=== PATIENT | female | born 1995 | race Caucasian/White ===

== ENCOUNTER 2016-09-26 11:12 | Outpatient (CLI) | payer OTHER, MEDICAID ==
[~2016-09-26] VITALS: Ht 170.2 cm; Wt 121.6 kg
[~2016-09-26 11:12] MED LIST: ACHD5005 PO; AGM875T GT; ALBU8.5H2 IH; ARIP10TA2 PO; BIRTH CONTROL PO; CEPH-507 PO; CEPH500C PO; CITA10TA70 PO; CRAN1CAP5 PO; DCS100C PO; HYDR-1231 PO; Ibuprofen PO; LEVO500T2 PO; LEVO500T69 PO; NITR-65 PO; OMEP20CA12 PO; ONDA4TAB8 PO; OXYC1TAB87 PO; PHEN100T26 PO; PRD10T PO; PREN-93 PO; PREN1TAB86 PO; SMT80CT PO; TRAM-42 PO; TRAM50TA2 PO
[2016-09-26] MEDS ORDERED: FERR-84 PO (11:33)
[2016-09-26 11:46] VITALS: BP 120/69
[2016-09-26] MEDS ORDERED: LACTATED RINGERS 1,000 ML IV ONE (12:45)
--- NOTE | 2016-09-26 13:46 | Diagnostic Imaging Report ---
PROCEDURE: US Gallbladder. TECHNIQUE: Multiple real-time grayscale images were obtained over the right upper quadrant in various projections. INDICATION: Right upper quadrant pain. FINDINGS: The pancreas is largely obscured by bowel gas. Hepatopetal flow in the portal vein is seen. The liver demonstrates no focal mass. The gallbladder demonstrates no stone or wall thickening. No pericholecystic fluid. No fluid collection in the upper right abdomen is seen. The right kidney is 9.5 cm in length with no hydronephrosis or focal lesion. The sonographic Bray sign is reportedly negative. IMPRESSION: No definite abnormality. Dictated by: Dictated on workstation # [id number]
[2016-09-26 13:58] VITALS: BP 117/56
[2016-09-26] MEDS ORDERED: LACTATED RINGERS 1,000 ML IV SCH (14:00)
[2016-09-26] MEDS ORDERED: ANTACID SUSP 30 ML UDC (MYLANTA) PO ONE (14:30)
[2016-09-26 16:48] LABS: BASOPHILS % (AUTO) 0 % (0-10); EOSINOPHILS % (AUTO) 0 % (0-10); LYMPHOCYTES # (AUTO) 2.9 X 10^3 (1.0-4.0); LYMPHOCYTES % (AUTO) 17 % (12-44); MEAN CORPUSCULAR HEMOGLOBIN 25 PG (25-34); MEAN CORPUSCULAR HGB CONC 31 G/DL (32-36); MEAN CORPUSCULAR VOLUME 79 FL (80-99); MEAN PLATELET VOLUME 9.5 FL (7.4-10.4); MONOCYTES # (AUTO) 0.8 X 10^3 (0.0-1.0); MONOCYTES % (AUTO) 5 % (0-12); NEUTROPHILS # (AUTO) 13.6 X 10^3 (1.8-7.8); NEUTROPHILS % (AUTO) 78 % (42-75); PLATELET COUNT 355 10^3/uL (130-400); RED BLOOD COUNT 3.76 10^6/uL (4.35-5.85); RED CELL DISTRIBUTION WIDTH 14.5 % (10.0-14.5); WHITE BLOOD COUNT 17.4 10^3/uL (4.3-11.0)
[2016-09-26 16:50] VITALS: BP 129/65
[2016-09-26 17:04] LABS: ALANINE AMINOTRANSFERASE 11 U/L (0-55); ALBUMIN 3.1 G/DL (3.2-4.5); ANION GAP 8 MMOL/L (5-14); ASPARTATE AMINO TRANSFERASE 10 U/L (5-34); BILIRUBIN,TOTAL 0.3 MG/DL (0.1-1.0); BLOOD UREA NITROGEN 7 MG/DL (7-18); BUN/CREATININE RATIO 10; CALCIUM 8.6 MG/DL (8.5-10.1); CARBON DIOXIDE 21 MMOL/L (21-32); CHLORIDE 108 MMOL/L (98-107); CREATININE SERUM 0.67 MG/DL (0.60-1.30); GFR ESTIMATED > 60; GLUCOSE 74 MG/DL (70-105); POTASSIUM 3.6 MMOL/L (3.6-5.0); SODIUM 137 MMOL/L (135-145); TOTAL PROTEIN 6.3 G/DL (6.4-8.2)
[2016-09-26 17:09] LABS: HYPOCHROMASIA MODERATE; LYMPHOCYTES % (MANUAL) 24 %; NEUTROPHILS % (MANUAL) 71 %; POLYCHROMASIA SLIGHT; STOMATOCYTES SLIGHT
[2016-09-26] MEDS ORDERED: morphine INJ 10 MG/ML 1ML (SYR OR VIAL) ONE (17:13)
[2016-09-26] MEDS ORDERED: morphine INJ 5 MG/ML 1 ML VIAL IVP ONE (17:15)
[2016-09-26] MEDS ORDERED: morphine INJ 10 MG/ML 1ML (SYR OR VIAL) IV ONE (18:04)
--- NOTE | 2016-09-27 10:52 | Physician Query-Final Dx ---
VAISHALI MAYES 09/27/16 1052: Clinic Account Progress/Dx Physician Query: Please give diagnosis Date of Service Sep 26, 2016 at 11:12 MILY RICHTER MD 09/30/16 0709: Clinic Account Progress/Dx DIAGNOSIS: Diagnosis 1. IUP at 37 weeks 2. Uterine irritability non-labor 3. R upper quadrant abdominal pain - non specific VAISHALI MAYES Sep 27, 2016 10:52 MILY RICHTER MD Sep 30, 2016 07:09
[2016-10-12] MEDS ORDERED: HYDR-3812 PO (07:43)
[2016-10-12] MEDS ORDERED: DOCU100C37 PO (07:43)
[2016-10-12] MEDS ORDERED: IBUP-1773 PO (07:43)
== END 2016-09-26 19:12 | disposition home or self-care (01) ==
LOC: LDRP 11:12 → WSo 11:12
PROVIDERS: ATTEND Family Medicine
DX: O99.89 Other specified diseases and conditions complicating pregnancy, childbirth and the puerperium (principal); N85.8 Other specified noninflammatory disorders of uterus; R10.11 Right upper quadrant pain; Z3A.37 37 weeks gestation of pregnancy
CPT/HCPCS: 36415; 76705; 80053; 85007; 85027; 96361; 96374; 99214

== ENCOUNTER 2016-10-06 09:56 | Outpatient (CLI) | payer MEDICAID ==
[~2016-10-06] VITALS: Ht 170.2 cm; Wt 120.7 kg
[~2016-10-06 09:56] MED LIST changes: +FERR-84 PO
[2016-10-06 10:03] VITALS: BP 111/62
[2016-10-12] MEDS ORDERED: DOCU100C37 PO (07:43)
[2016-10-12] MEDS ORDERED: HYDR-3812 PO (07:43)
[2016-10-12] MEDS ORDERED: IBUP-1773 PO (07:43)
== END 2016-10-06 10:17 | disposition home or self-care (01) ==
LOC: PREOP 09:56
PROVIDERS: ATTEND Obstetrics & Gynecology
DX: Z01.818 Encounter for other preprocedural examination (principal); Z11.2 Encounter for screening for other bacterial diseases; O34.211 Maternal care for low transverse scar from previous cesarean delivery
CPT/HCPCS: 87081

== ENCOUNTER 2016-10-10 06:03 | Inpatient (IN) | payer OTHER, MEDICAID ==
[~2016-10-10] VITALS: Ht 170.2 cm; Wt 120.7 kg
[~2016-10-10 06:03] MED LIST changes: +CITRIC ACID/SOB CIT (BICITRA) 30 ML UDC ONE; +FAMOTIDINE 20MG/2ML IV (PEPCID) ONE; +LACTATED RINGERS 1,000 ML IV ONE; +METOCLOPRAMIDE INJ 10 MG/2 ML (REGLAN) ONE; +NS (IVPB) 50 ML ONE; +ceFAZolin 1,000 MG (ANCEF) VIAL ONE
[2016-10-10] MEDS ORDERED: LACTATED RINGERS 1,000 ML IV PRN ×2 (06:40)
[2016-10-10 06:45] VITALS: BP 131/80
[2016-10-10] MEDS ORDERED: METOCLOPRAMIDE INJ 10 MG/2 ML (REGLAN) IV ONE (06:45)
[2016-10-10] MEDS ORDERED: CITRIC ACID/SOB CIT (BICITRA) 30 ML UDC PO ONE (06:45)
[2016-10-10] MEDS ORDERED: CATHETER FLUSH 10 ML SYR IV PRN (06:45)
[2016-10-10] MEDS ORDERED: FAMOTIDINE 20MG/2ML IV (PEPCID) IV ONE (06:45)
[2016-10-10 06:49] LABS: BASOPHILS % (AUTO) 0 % (0-10); EOSINOPHILS % (AUTO) 0 % (0-10); LYMPHOCYTES # (AUTO) 2.4 X 10^3 (1.0-4.0); LYMPHOCYTES % (AUTO) 14 % (12-44); MEAN CORPUSCULAR HEMOGLOBIN 25 PG (25-34); MEAN CORPUSCULAR HGB CONC 32 G/DL (32-36); MEAN CORPUSCULAR VOLUME 77 FL (80-99); MEAN PLATELET VOLUME 9.9 FL (7.4-10.4); MONOCYTES # (AUTO) 1.2 X 10^3 (0.0-1.0); MONOCYTES % (AUTO) 7 % (0-12); NEUTROPHILS # (AUTO) 13.3 X 10^3 (1.8-7.8); NEUTROPHILS % (AUTO) 78 % (42-75); PLATELET COUNT 390 10^3/uL (130-400); RED CELL DISTRIBUTION WIDTH 14.7 % (10.0-14.5); WHITE BLOOD COUNT 17.1 10^3/uL (4.3-11.0)
[2016-10-10 06:52] LABS: BILIRUBIN,URINE NEGATIVE (NEGATIVE); KETONES,URINE NEGATIVE (NEGATIVE); LEUKOCYTE ESTERASE ,URINE 1+ (NEGATIVE); NITRITE,URINE NEGATIVE (NEGATIVE); PH,URINE 6 (5-9); PROTEIN,URINE 1+ (NEGATIVE); UROBILINOGEN,URINE 1 MG/DL (NORMAL)
[2016-10-10] MEDS ORDERED: ceFAZolin INJECTION 1,000 MG in NS (IVPB) 50 ML IV NR (07:00)
[2016-10-10] MEDS ORDERED: metroNIDAZOLE 500MG/100ML IVPB 100 ML IV NR (07:00)
[2016-10-10 07:01] LABS: CALCIUM OXALATE CRYSTALS,UR FEW /LPF; SQUAMOUS EPITHELIAL CELL,UR 25-50 /HPF
[2016-10-10] MEDS ORDERED: OXYTOCIN/NORMAL SALINE 500 ML IV ONE ×2 (07:07→08:24)
[2016-10-10] MEDS ORDERED: morphine PF (DURAMORPH) 10 MG/10 ML AMP ONE (07:08)
[2016-10-10] MEDS ORDERED: fentaNYL INJECTION 100 MCG/2 ML AMP ONE (07:08)
--- NOTE | 2016-10-10 07:14 | Progress Note-Pre Operative ---
Pre-Operative Progress Note H&P Reviewed The H&P was reviewed, patient examined and no changes noted. Date H&P Reviewed: Oct 10, 2016 Time H&P Reviewed: 07:05 Pre-Operative Diagnosis: Previous section, 39 weeks TARUN WITT DO Oct 10, 2016 07:14
[2016-10-10 07:17] LABS: BASOPHILS % (MANUAL) 1 %; LYMPHOCYTES % (MANUAL) 21 %; NEUTROPHILS % (MANUAL) 74 %
[2016-10-10] MEDS ORDERED: KETOROLAC 30 MG/ML VIAL ONE (07:58)
[2016-10-10] MEDS ORDERED: morphine PF (DURAMORPH) 10 MG/10 ML AMP INJ ONE (08:30)
[2016-10-10] MEDS ORDERED: ONDANSETRON 4 MG/2 ML (SDV) Z0FRAN IV PRN (08:30)
[2016-10-10] MEDS ORDERED: fentaNYL INJECTION 100 MCG/2 ML AMP INJ ONE (08:30)
[2016-10-10] MEDS ORDERED: NALOXONE 0.4 MG/ML 1 ML (NARCAN) VIAL IV PRN (08:30)
--- NOTE | 2016-10-10 08:31 | Cesarean Section Operative ---
Procedure Procedure Note Pre-operative Diagnosis: Jailene Duke is a 21 /Para 2 /1 , Gestational Age 39 weeks with history of previous section Post-operative Diagnosis: same Procedure: Primary low transverse section Physician: TARUN WITT Network Manager: She David APRN Estimated blood loss: 600 mL Disposition: stable in recovery Findings: Viable female infant, Apgars 9/9, weight8#2oz, intact placenta, 3vc, normal appearing uterus, tubes, and ovaries. Indications:Jailene Duke is a 21 /Para 2 /1 ,Gestational Age 39 weeks with history of previous section Procedure Details: The patient was seen in pre-op and the procedure was discussed with the patient in full, including the risks, benefits, and alternatives. All questions were answered. The patient was taken to the operating room and a time out was performed, verifying patient and procedure. After spinal anesthesia was placed by our anesthesia colleagues, the patient was placed in the dorsal supine with leftward tilt for uterine displacement.~ Her abdomen was then prepped and draped in the typical sterile fashion. A Pfannenstiel skin incision was made using a scalpel and carried down through the underlying fascia. The fascia was incised in the midline and tented up using Tnoy clamps. On both the inferior and superior fascia side the rectus muscle was dissected off bluntly and sharply using Kam scissors. The peritoneum was identified and entered bluntly in the midline. This was then stretched laterally using manual strength. After entering the abdominal cavity and confirming lack of intraperitoneal adhesions, a large Maycol retractor was placed and the lower uterine segment was visualized. A scalpel was utilized to make a low transverse uterine incision. Amniotomy was performed with an Allis clamp with return of clear fluid. The infant's head was grasped and brought to the level of the incision. Fundal pressure was applied and infant was delivered without difficulty. Mouth and nares were suctioned with bulb suction. After the umbilical cord was clamped and cut, the infant was handed off to the pediatric staff. A sample of cord blood was then obtained. The placenta was delivered intact via uterine massage. The uterus cleared of all clots and debris. The uterine incision was closed using 0 Vicryl in a running locked fashion. A second imbricated layer was placed using 0 Vicryl in a running fashion as well. Again the hysterotomy site was examined and hemostasis was observed. The bilateral tubes and ovaries appeared normal. The abdominal gutters were cleared of all clots and debris. A final check of the uterine incision showed it to be hemostatic. The peritoneum was closed using 3-0 Vicryl in a running fashion. The fascia was closed with 0 Vicryl in a running fashion. The subcutaneous space was hemostatic, and irrigated. The subcutaneous space was closed with 3-0 Vicryl in several single interrupted stitches. The skin was then closed using 4- 0 Monocryl in a running subcuticular fashion. The skin edges were reapproximated together and were hemostatic. A pressure dressing was applied. All sponge, lap and needle counts were correct at the end of the procedure per nursing. Vitals - Labs Vital Signs - I&O Vital Signs Date Time Temp Pulse Resp B/P Pulse Ox O2 Delivery O2 Flow Rate FiO2 10/10/16 06:45 98.0 90 18 131/80 Room Air Labs Laboratory Tests 10/10/16 06:10: Urine Bacteria FEWH, Urine Bilirubin NEGATIVE, Urine Calcium Oxalate Crystals FEWH, Urine Casts NONE, Urine Clarity CLEAR, Urine Color YELLOW, Urine Crystals NONE, Urine Culture Indicated NO, Urine Glucose (UA) NEGATIVE, Urine Ketones NEGATIVE, Urine Leukocyte Esterase 1+H, Urine Mucus MODERATEH, Urine Nitrite NEGATIVE, Urine Protein 1+H, Urine RBC NONE, Urine RBC (Auto) NEGATIVE, Urine Specific [place] 1.020, Urine Squamous Epithelial Cells 25-50H, Urine Urobilinogen 1, Urine WBC 5-10H, Urine pH 6 10/10/16 06:16: Basophils # (Auto) 0.0, Basophils % (Manual) 1, Basophils (%) (Auto) 0, Blood Morphology Comment NORMAL, Eosinophils # (Auto) 0.0, Eosinophils (%) (Auto) 0, Hematocrit 32L, Hemoglobin 10.4L, Lymphocytes # (Auto) 2.4, Lymphocytes % ( Manual) 21, Lymphocytes (%) (Auto) 14, Mean Corpuscular Hemoglobin 25, Mean Corpuscular Hemoglobin Concent 32, Mean Corpuscular Volume 77L, Mean Platelet Volume 9.9, Monocytes # (Auto) 1.2H, Monocytes % (Manual) 4, Monocytes (%) (Auto ) 7, Neutrophils # (Auto) 13.3H, Neutrophils % (Manual) 74, Neutrophils (%) ( Auto) 78H, Platelet Count 390, Red Blood Count 4.20L, Red Cell Distribution Width 14.7H, White Blood Count 17.1H TARUN WITT DO Oct 10, 2016 08:31 TARUN WITT DO Oct 10, 2016 08:31
[2016-10-10] MEDS ORDERED: FERROUS SULF 325 MG (IRON) TAB PO SCH (09:00)
[2016-10-10 09:50] VITALS: BP 112/77
[2016-10-10 11:00] VITALS: BP 120/76
[2016-10-10] MEDS ORDERED: D5 LR IV SOLUTION 1,000 ML IV ONE (12:48)
[2016-10-10 13:00] VITALS: BP 123/75
[2016-10-10] MEDS ORDERED: OXYTOCIN/NORMAL SALINE 500 ML IV SCH (13:07)
[2016-10-10] MEDS ORDERED: D5 LR IV SOLUTION 1,000 ML IV SCH (13:07)
[2016-10-10] MEDS ORDERED: MEASLES,MUMPS,RUBELLA 1 EA INJ SC SCH (13:15)
[2016-10-10] MEDS ORDERED: HYDROmorphone (DILAUDID) 2 MG/ML VIAL IVP PRN (13:15)
[2016-10-10] MEDS ORDERED: TETANUS,DIPTH,PERTUSS P/F (BOOSTRIX) 0.5 ML VIAL IM SCH (13:15)
[2016-10-10] MEDS ORDERED: CATHETER FLUSH 10 ML SYR IV SCH (14:00)
[2016-10-10] MEDS: KETOROLAC 30 MG/ML VIAL IVP SCH ×2 (14:46→21:36)
[2016-10-10] MEDS: HYDROcodone/APAP 5 MG/325 MG (LORTAB) TAB PO PRN (14:53)
[2016-10-10 17:30] VITALS: BP 101/63
[2016-10-10 21:36] VITALS: BP 102/56
[2016-10-10] MEDS: DOCUSATE SODIUM 100 MG (COLACE) CAP PO SCH (21:36)
[2016-10-11 01:32] VITALS: BP 91/54
[2016-10-11] MEDS: KETOROLAC 30 MG/ML VIAL IVP SCH ×2 (03:36→07:15)
[2016-10-11 05:40] VITALS: BP 117/57
[2016-10-11 05:58] LABS: BASOPHILS % (AUTO) 0 % (0-10); EOSINOPHILS # (AUTO) 0.1 10^3/uL (0.0-0.3); EOSINOPHILS % (AUTO) 0 % (0-10); LYMPHOCYTES # (AUTO) 2.8 X 10^3 (1.0-4.0); LYMPHOCYTES % (AUTO) 17 % (12-44); MEAN CORPUSCULAR HEMOGLOBIN 25 PG (25-34); MEAN CORPUSCULAR HGB CONC 32 G/DL (32-36); MEAN CORPUSCULAR VOLUME 79 FL (80-99); MEAN PLATELET VOLUME 9.4 FL (7.4-10.4); MONOCYTES % (AUTO) 6 % (0-12); NEUTROPHILS # (AUTO) 12.4 X 10^3 (1.8-7.8); NEUTROPHILS % (AUTO) 76 % (42-75); PLATELET COUNT 373 10^3/uL (130-400); RED BLOOD COUNT 3.37 10^6/uL (4.35-5.85); RED CELL DISTRIBUTION WIDTH 14.5 % (10.0-14.5); WHITE BLOOD COUNT 16.3 10^3/uL (4.3-11.0)
--- NOTE | 2016-10-11 08:29 | Postpartum Progress Note ---
Post Op Post-operative Day #1 Subjective: Patient is without complaints. Ambulating, voiding after laird removed. Tolerating a regular diet without nausea or vomiting. Normal lochia. Pain is well controlled with oral pain medications. Passing flatus. Breast feeding. Objective: Vital Sign - Last 12Hours 10/10/16 210/11/16 21:36 01:32 05:40 Temp 98.1 96.7 98.4 Pulse 77 88 77 Resp 18 18 18 B/P 102/56 91/54 117/57 Pulse Ox 100 97 99 O2 Delivery Room Air Room Air Room Air Intake and Output 10/10/16 23:59 Intake Total 2500 ml Output Total 825 ml Balance 1675 ml Physical Exam: General - Alert and oriented, no apparent distress Abdomen - Soft, appropriately tender to palpation, non-distended, fundus firm at umbilicus Incision - clean, dry and intact; no erythema or induration, no drainage Extremities - no edema, negative Blair's bilaterally Laboratory Tests 10/11/16 05:31: Basophils # (Auto) 0.0, Basophils (%) (Auto) 0, Eosinophils # (Auto) 0.1, Eosinophils (%) (Auto) 0, Hematocrit 27L, Hemoglobin 8.4L, Lymphocytes # (Auto) 2.8, Lymphocytes (%) (Auto) 17, Mean Corpuscular Hemoglobin 25, Mean Corpuscular Hemoglobin Concent 32, Mean Corpuscular Volume 79L, Mean Platelet Volume 9.4, Monocytes # (Auto) 1.0, Monocytes (%) (Auto) 6, Neutrophils # (Auto ) 12.4H, Neutrophils (%) (Auto) 76H, Platelet Count 373, Red Blood Count 3.37L, Red Cell Distribution Width 14.5, White Blood Count 16.3H Assessment: 21 y/o post-operative day # 1, status post RLTCS. Recovering well, hemodynamically stable Acute blood loss anemia Hgb 8.4 Class III obesity Plan: Routine post-operative care. Encourage breast feeding. Encourage ambulation. VTE prophylaxis: SCDs, lovenox. Ferrous sulfate supplementation. Plan for discharge POD#2 Vitals - Labs Vital Signs - I&O Vital Signs Date Time Temp Pulse Resp B/P Pulse Ox O2 Delivery O2 Flow Rate FiO2 10/11/16 05:40 98.4 77 18 117/57 99 Room Air 2/22/17 01:32 96.7 88 18 91/54 97 Room Air 10/10/16 21:36 98.1 77 18 102/56 100 Room Air 10/10/16 17:30 97.1 80 18 101/63 98 Room Air 10/10/16 13:00 97.7 76 18 123/75 100 Room Air 10/10/16 11:00 97.8 85 18 120/76 99 Room Air 10/10/16 09:50 97.7 87 18 112/77 100 Room Air I & O 10/11/16 06:59 Intake Total 3000 ml Output Total 2375 ml Balance 625 ml Labs Laboratory Tests 10/11/16 05:31: Basophils # (Auto) 0.0, Basophils (%) (Auto) 0, Eosinophils # (Auto) 0.1, Eosinophils (%) (Auto) 0, Hematocrit 27L, Hemoglobin 8.4L, Lymphocytes # (Auto) 2.8, Lymphocytes (%) (Auto) 17, Mean Corpuscular Hemoglobin 25, Mean Corpuscular Hemoglobin Concent 32, Mean Corpuscular Volume 79L, Mean Platelet Volume 9.4, Monocytes # (Auto) 1.0, Monocytes (%) (Auto) 6, Neutrophils # (Auto ) 12.4H, Neutrophils (%) (Auto) 76H, Platelet Count 373, Red Blood Count 3.37L, Red Cell Distribution Width 14.5, White Blood Count 16.3H SESAR IGNACIO MD Oct 11, 2016 08:29
[2016-10-11 08:48] VITALS: BP 126/74
[2016-10-11] MEDS: DOCUSATE SODIUM 100 MG (COLACE) CAP PO SCH ×2 (08:55→22:09)
[2016-10-11] MEDS: HYDROcodone/APAP 5 MG/325 MG (LORTAB) TAB PO PRN ×4 (08:55→22:10)
[2016-10-11] MEDS: FERROUS SULF 325 MG (IRON) TAB PO SCH ×2 (08:55→18:41)
--- NOTE | 2016-10-11 10:09 | Anesthesia-Regional Post-Op ---
Regional Patient Condition Mental Status: Alert, Oriented x3 Circulation: Same as Pre-Op Headache: Absent Sensation: Full Recovery Motor Block: Absent Post Op Complications Complications None Follow Up Care/Instructions Patient Instructions None needed. Anesthesia/Patient Condition Patient is doing well, no complaints, stable vital signs, no apparent adverse anesthesia problems. No complications reported per nursing. D/C home per [facility] Criteria: No SANTOSH OLIVARES CRNA Oct 11, 2016 10:09
[2016-10-11] MEDS: IBUPROFEN 600 MG (MOTRIN) TAB PO SCH ×3 (10:32→22:09)
[2016-10-11] MEDS: ENOXAPARIN 40 MG/0.4 ML (LOVENOX) SYR SC SCH (11:59)
[2016-10-11 14:01] VITALS: BP 124/73
[2016-10-11 22:00] VITALS: BP 118/75
[2016-10-12 04:20] VITALS: BP 118/73
[2016-10-12] MEDS: IBUPROFEN 600 MG (MOTRIN) TAB PO SCH ×2 (04:23→11:09)
[2016-10-12] MEDS ORDERED: DOCU100C37 PO (07:43)
[2016-10-12] MEDS ORDERED: HYDR-3812 PO (07:43)
[2016-10-12] MEDS ORDERED: IBUP-1773 PO (07:43)
--- NOTE | 2016-10-12 07:50 | Discharge Inst-Women's Service ---
Discharge Inst-Women's Serv Depart Medication/Instructions New, Converted or Re-Newed RX: Other (transmitted and on chart) Instructions no lifting over 25 lbs. Ambulate frequently Final Diagnosis previous section antepartum and acute blood loss anemia Consults/Follow Up Additional Follow Up: Yes (1-2 weeks for incision check with She/Mikhail; 6 weeks with Octavio) Activity Activity: Activity as Tolerated Driving Instructions: No Driving for 1 Week NO SMOKING: NO SMOKING Nothing Inside Vagina: No Douching, No [place], No Tampons Diet Discharge Diet: No Restrictions Symptoms to Report to DrPhillip: Swelling Increased, Bleeding Excessive, Pain Increased, Fever Over 101 Degrees F, Vaginal Bleeding Increase, Cramps in Feet or Legs, Lightheadedness, Vaginal Discharge Foul For Any Problems or Questions: Contact Your Physician Skin/Wound Care Infection Signs and Symptoms: Increased Redness, Foul Odor of Wound, Increased Drainage, Skin Itchy or Has a Rash, Increased Swelling, Temperature Above 101 F Operative Area Clean and Dry: Keep Incision Clean/Dry Stitches/[place]/Dermabond: Dermabond Bathing Instructions: TARUN Nash DO Oct 12, 2016 07:50
--- NOTE | 2016-10-12 07:52 | Postpartum Progress Note ---
Post Op Post-operative Day #2 s/p RLTCS, class III obesity on Lovenox for DVT prophylaxis, acute blood loss anemia Subjective: Patient is without complaints. Ambulating, voiding after laird removed. Tolerating a regular diet without nausea or vomiting. Normal lochia. Pain is well controlled with oral pain medications. Passing flatus. breast feeding. Objective: Vital Sign - Last 12Hours 10/11/16 2 22:00 04:20 Temp 97.6 96.9 Pulse 90 89 Resp 18 18 B/P 118/75 118/73 Pulse Ox 99 96 O2 Delivery Room Air Room Air Intake and Output 10/11/16 23:59 Intake Total 4000 ml Output Total 1200 ml Balance 2800 ml Physical Exam: General - Alert and oriented, no apparent distress Abdomen - Soft, appropriately tender to palpation, non-distended, fundus firm at umbilicus Incision - clean, dry and intact; no erythema or induration, no drainage Extremities - no edema, negative Blair's bilaterally Assessment: 1. post-operative day # 2, status post RLTCS. Recovering well, hemodynamically stable 2. Acute blood loss anemia, stable on iron replacement 3. class III obesity, on lovenox Plan: Routine post-operative care. Encourage breast feeding. Encourage ambulation. VTE prophylaxis: SCDs, lovenox Ferrous sulfate supplementation. Plan for discharge today Vitals - Labs Vital Signs - I&O Vital Signs Date Time Temp Pulse Resp B/P Pulse Ox O2 Delivery O2 Flow Rate FiO2 10/12/16 04:20 96.9 89 18 118/73 96 Room Air 10/11/16 22:00 97.6 90 18 118/75 99 Room Air 10/11/16 14:01 97.6 91 18 124/73 97 Room Air 10/11/16 08:48 99.2 96 18 126/74 99 Room Air I & O 10/12/16 06:59 Intake Total 4800 ml Output Total 2400 ml Balance 2400 ml TARUN WITT DO Oct 12, 2016 07:52
[2016-10-12 08:48] VITALS: BP 114/71
[2016-10-12] MEDS: DOCUSATE SODIUM 100 MG (COLACE) CAP PO SCH (08:49)
[2016-10-12] MEDS: ENOXAPARIN 40 MG/0.4 ML (LOVENOX) SYR SC SCH (08:50)
[2016-10-12] MEDS: FERROUS SULF 325 MG (IRON) TAB PO SCH (08:50)
[2016-10-12] MEDS: HYDROcodone/APAP 5 MG/325 MG (LORTAB) TAB PO PRN (08:50)
== END 2016-10-12 14:15 | disposition home or self-care (01) | DRG 765 ==
LOC: LDRP 06:03
PROVIDERS: ADMIT Obstetrics & Gynecology; ATTEND Obstetrics & Gynecology
PROC: 10D00Z1 Extraction of Products of Conception, Low, Open Approach (ICD-10-PCS; principal; 2016-10-10 07:19)
DX: O34.211 Maternal care for low transverse scar from previous cesarean delivery (principal); O99.03 Anemia complicating the puerperium; D62 Acute posthemorrhagic anemia; O99.213 Obesity complicating pregnancy, third trimester; E66.9 Obesity, unspecified; Z3A.39 39 weeks gestation of pregnancy; Z37.0 Single live birth
CPT/HCPCS: 36415; 81000; 85007; 85025; 85027; 86850; 86900; 86901; 94664

== ENCOUNTER 2017-01-18 18:27 | Emergency (ER) | payer MEDICAID, OTHER ==
[~2017-01-18] VITALS: Ht 170.2 cm; Wt 113.4 kg
[~2017-01-18 18:27] MED LIST changes: -CITRIC ACID/SOB CIT (BICITRA) 30 ML UDC ONE; +DOCU100C37 PO; -FAMOTIDINE 20MG/2ML IV (PEPCID) ONE; +HYDR-3812 PO; +IBUP-1773 PO; -LACTATED RINGERS 1,000 ML IV ONE; -METOCLOPRAMIDE INJ 10 MG/2 ML (REGLAN) ONE; -NS (IVPB) 50 ML ONE; -ceFAZolin 1,000 MG (ANCEF) VIAL ONE
[2017-01-18 19:09] LABS: BASOPHILS # (AUTO) 0.1 10^3/uL (0.0-0.1); BASOPHILS % (AUTO) 0 % (0-10); EOSINOPHILS # (AUTO) 0.2 10^3/uL (0.0-0.3); EOSINOPHILS % (AUTO) 2 % (0-10); LYMPHOCYTES # (AUTO) 3.8 X 10^3 (1.0-4.0); LYMPHOCYTES % (AUTO) 31 % (12-44); MEAN CORPUSCULAR HEMOGLOBIN 22 PG (25-34); MEAN CORPUSCULAR HGB CONC 30 G/DL (32-36); MEAN CORPUSCULAR VOLUME 72 FL (80-99); MEAN PLATELET VOLUME 9.2 FL (7.4-10.4); MONOCYTES # (AUTO) 0.7 X 10^3 (0.0-1.0); MONOCYTES % (AUTO) 6 % (0-12); NEUTROPHILS # (AUTO) 7.4 X 10^3 (1.8-7.8); NEUTROPHILS % (AUTO) 61 % (42-75); PLATELET COUNT 507 10^3/uL (130-400); RED BLOOD COUNT 4.73 10^6/uL (4.35-5.85); RED CELL DISTRIBUTION WIDTH 15.9 % (10.0-14.5); WHITE BLOOD COUNT 12.1 10^3/uL (4.3-11.0)
--- NOTE | 2017-01-18 19:09 | ED Abdominal Pain ---
General Chief Complaint: Abdominal/GI Problems Stated Complaint: ABDOMINAL PAIN Nursing Triage Note: pt states she is having severe pain below her belly button for approx. 1 week. pt states she has been feeling nauseous since this has started. pt has had an abdominal hernia before and pt states this is the way she felt when they found her previous hernia. Sepsis Screen: No Definite Risk Source of Information: Patient History of Present Illness Time Seen By Provider: 18:30 Initial Comments C/O DIFFUSE LOWER ABDOMINAL PAIN FOR 8-9 DAYS PAIN IS CONSTANT PAIN IS WORSE TODAY, AND PAIN INCREASES WITH BENDING OVER AND PICKING UP CHILD HAS NOT TAKEN ANYTHING FOR PAIN HAS NOT SOUGHT CARE UNTIL TODAY C/O MILD NAUSEA, NO VOMITING HAS NOT HAD A BM IN 3 DAYS--NOT NORMAL FOR PT NO URINARY SYMPTOMS NO FEVER LMP 12/30/16. NORMAL. NO CONTROL PCP: MELISSA Allergies and Home Medications Allergies Coded Allergies: fexofenadine (Verified Allergy, Unknown, 11/20/13) Home Medications Doxycycline Monohydrate 100 Mg Capsule, 100 MG PO BID, #20 Prescribed by: MAMTA GAMBLE on 01/18/172039 Metronidazole 500 Mg Tablet, 500 MG PO QID, #40 Prescribed by: MAMTA GAMBLE on 01/18/172039 Naproxen 500 Mg Tablet, 500 MG PO BID, #20 Prescribed by: MAMTA GAMBLE on 01/18/172039 Review of Systems Constitutional: no symptoms reported Respiratory: No Symptoms Reported Cardiovascular: No Symptoms Reported Gastrointestinal: See HPI, Abdominal Pain, Constipated, Nausea, Denies Poor Appetite, Denies Poor Fluid Intake, Denies Vomiting Genitourinary: No Symptoms Reported Musculoskeletal: no symptoms reported Skin: no symptoms reported Psychiatric/Neurological: No Symptoms Reported Endocrine: No Symptoms Reported Hematologic/Lymphatic: No Symptoms Reported Past Smpqwhe-Swkvpu-Jgtqyb Hx Patient Social History Alcohol Use: Denies Use Recreational Drug Use: No Smoking Status: Light Tobacco Smoker 2nd Hand Smoke Exposure: Yes Recent Foreign Travel: No Contact w/Someone Who Travel: No Recent Infectious Disease Expo: No Recent Hopitalizations: Yes ( 3 months ago) Immunizations Up To Date Tetanus Booster (TDap): Less than 5yrs PED Vaccines UTD: No Date of Influenza Vaccine: Jun 10, 2016 Seasonal Allergies Seasonal Allergies: Yes Surgeries HX Surgeries: Yes (UMBILICAL HERNIA; X 2) Surgeries: Abdominal, Section Respiratory Hx Respiratory Disorders: Yes Respiratory Disorders: Asthma Cardiovascular Hx Cardiac Disorders: No Neurological Hx Neurological Disorders: Yes Neurological Disorders: Concussion Reproductive System : No Hx : 2 Hx Para: 2 Hx Total # of Abortions (Spona: 0 Hx Reproductive Disorders: No Female Reproductive Disorders: Denies Genitourinary Hx Genitourinary Disorders: No Gastrointestinal Hx Gastrointestinal Disorders: No Musculoskeletal Hx Musculoskeletal Disorders: No Endocrine Hx Endocrine Disorders: No HEENT HX ENT Disorders: No Cancer Hx Cancer: No Psychosocial Hx Psychiatric Problems: No Integumentary HX Skin/Integumentary Disorder: No Blood Transfusions Hx Blood Disorders: No Adverse Reaction to a Blood Tr: No Family Medical History Family Medial History: Asthma G8 BROTHER Congenital heart disease 19 MOTHER (heart murmur) Psychosocial problem 19 MOTHER Seizure disorder 19 MOTHER No Family History of: AIDS Abdominal aortic aneurysm Mark's disease Alcoholism Alzheimer's disease Aphasia Arthritis Cancer of mouth Cardiovascular disease Cataracts Colon cancer Completed stroke Congenital disease Coronary thrombosis Cystic fibrosis Deafness or hearing loss Dementia Diabetes mellitus Drug abuse Dysphasia Fibrocystic disease of breast Gastroenteritis Glaucoma Headache disorder Hypercholesterolemia Hypertension Infertility Kidney disease Myocardial infarction Neoplasm Osteoporosis Parkinson's disease Prostate cancer Respiratory disorder Severe allergy Tuberculosis Visual disorder Physical Exam Vital Signs VS - Last 72 Hours, by Label 01/18/17 18:36 Temp 97.5 Pulse 90 Resp 16 B/P (MAP) 163/94 Pulse Ox 99 O2 Delivery Room Air Capillary Refill : Less Than 3 Seconds General Appearance: WD/WN, no apparent distress, obese, other (WALKS UPRIGHT AND MOVES WITHOUT DIFFICULTY) Respiratory: normal breath sounds, no respiratory distress, no accessory muscle use Cardiovascular: regular rate, rhythm, no murmur Gastrointestinal: normal bowel sounds, soft, no organomegaly, no pulsatile mass , tenderness (DIFFUSE LOWER ABDOMINAL TENDERNESS) Genital/Rectal: other (MODERATE AMOUNT OF OFF-WHITE THIN, FROTHY DISCHARGE WITH FISHY ODOR. CERVIX NON-FRIABLE AND NO CERVICAL MOTION TENDERNESS. NO FUNDUS OR ADNEXAL TENDERNESS, ELARGEMENT OR MASSES. ) Extremities: normal range of motion, non-tender, normal inspection, no pedal edema, no calf tenderness, normal capillary refill Back: normal inspection, no CVA tenderness Pelvic: normal external exam, normal adnexa, no cerv. motion tender, no masses , discharge, No tender w/ cervical motion, No tender adnexa, No tender uterus, No vaginal bleeding Neurologic/Psychiatric: creative services producer II-XII nml as tested, no motor/sensory deficits, alert, normal mood/affect, oriented x 3 Skin: normal color, warm/dry Progress/Results/Core Measures Results/Orders Lab Results Laboratory Tests Test 01/18/17 18:57 01/18/17 18:59 01/18/17 20:30 Range/Units White Blood Count 12.1 H 4.3-11.0 10^3/uL Red Blood Count 4.73 4.35-5.85 10^6/uL Hemoglobin 10.3 L 11.5-16.0 G/DL Hematocrit 34 L 35-52 % Mean Corpuscular Volume 72 L 80-99 FL Mean Corpuscular Hemoglobin 22 L 25-34 PG Mean Corpuscular Hemoglobin Concent 30 L 32-36 G/DL Red Cell Distribution Width 15.9 H 10.0-14.5 % Platelet Count 507 H 130-400 10^3/uL Mean Platelet Volume 9.2 7.4-10.4 FL Neutrophils (%) (Auto) 61 42-75 % Lymphocytes (%) (Auto) 31 12-44 % Monocytes (%) (Auto) 6 0-12 % Eosinophils (%) (Auto) 2 0-10 % Basophils (%) (Auto) 0 0-10 % Neutrophils # (Auto) 7.4 1.8-7.8 X 10^3 Lymphocytes # (Auto) 3.8 1.0-4.0 X 10^3 Monocytes # (Auto) 0.7 0.0-1.0 X 10^3 Eosinophils # (Auto) 0.2 0.0-0.3 10^3/uL Basophils # (Auto) 0.1 0.0-0.1 10^3/uL Sodium Level 141 135-145 MMOL/L Potassium Level 3.7 3.6-5.0 MMOL/L Chloride Level 107 98-107 MMOL/L Carbon Dioxide Level 22 21-32 MMOL/L Anion Gap 12 5-14 MMOL/L Blood Urea Nitrogen 16 7-18 MG/DL Creatinine 0.86 0.60-1.30 MG/DL Estimat Glomerular Filtration Rate > 60 BUN/Creatinine Ratio 19 Glucose Level 81 70-105 MG/DL Calcium Level 11.5 H 8.5-10.1 MG/DL Total Bilirubin 0.3 0.1-1.0 MG/DL Aspartate Amino Transf (AST/SGOT) 18 5-34 U/L Alanine Aminotransferase (ALT/SGPT) 13 0-55 U/L Alkaline Phosphatase 87 40-136 U/L Total Protein 8.4 H 6.4-8.2 G/DL Albumin 4.4 3.2-4.5 G/DL Amylase Level 41 25-125 U/L Lipase 18 8-78 U/L Urine Color YELLOW Urine Clarity SLIGHTLY CLOUDY Urine pH 6 5-9 Urine Specific [place] 1.020 1.016-1.022 Urine Protein 1+ H NEGATIVE Urine Glucose (UA) NEGATIVE NEGATIVE Urine Ketones NEGATIVE NEGATIVE Urine Nitrite NEGATIVE NEGATIVE Urine Bilirubin NEGATIVE NEGATIVE Urine Urobilinogen NORMAL NORMAL MG/DL Urine Leukocyte Esterase 1+ H NEGATIVE Urine RBC (Auto) NEGATIVE NEGATIVE Urine RBC NONE /HPF Urine WBC 2-5 /HPF Urine Squamous Epithelial Cells >50 H /HPF Urine Crystals NONE /LPF Urine Bacteria FEW H /HPF Urine Casts NONE /LPF Urine Mucus MODERATE H /LPF Urine Culture Indicated NO My Orders Orders - MAMTA GAMBLE DO Urine Bedside (01/18/17 18:34) Ua Culture If Indicated (01/18/17 18:34) Saline Lock/Iv-Start (01/18/17 19:00) Amylase (01/18/17 19:00) Cbc With Automated Diff (01/18/17 19:00) Comprehensive Metabolic Panel (01/18/17 19:00) Lipase (01/18/17 19:00) Saline Lock/Iv-Start (01/18/17 19:00) Lactated Ringers (Lr 1000 Ml Iv Solution (01/18/17 19:00) Ondansetron Injection (Zofran Injectio (01/18/17 19:00) Ct Abd/Pelv W (Appendicitis) (01/18/17 19:22) Iohexol Injection (Omnipaque 350 Mg/Ml 1 (01/18/17 19:30) Ns (Ivpb) (Sodium Chloride 0.9% Ivpb Bag (01/18/17 19:30) Ceftriaxone Injection (Rocephin Injectio (01/18/17 20:45) Lidocaine 1% Injection (Xylocaine 1% Inj (01/18/17 20:45) Neisseria Gonorrhea Dna (01/18/17 20:36) Chlam Dna Probe (01/18/17 20:36) Genital Culture (01/18/17 20:36) Wet Prep (01/18/17 20:36) Carlos Prep (01/18/17 20:36) Azithromycin Tablet (Zithromax Tablet) (01/18/17 20:36) Medications Given in ED Current Medications Medications Dose Ordered Sig/Harjinder Route Start Time Stop Time Status Last Admin Dose Admin Iohexol 100 ml ONCE ONCE IV 01/18/17 19:30 01/18/17 19:31 DC 01/18/17 19:39 100 ML Lactated Ringer's 1,000 ml @ 0 mls/hr Q0M ONCE IV 01/18/17 19:00 01/18/17 19:02 DC 01/18/17 19:28 1,000 MLS/HR Ondansetron HCl 4 mg ONCE ONCE IVP 01/18/17 19:00 01/18/17 19:02 DC 01/18/17 19:28 4 MG Sodium Chloride 100 ml ONCE ONCE IV 01/18/17 19:30 01/18/17 19:31 DC 01/18/17 19:39 80 ML Vital Signs/I&O Vital Sign - Last 12Hours 01/18/17 18:36 Temp 97.5 Pulse 90 Resp 16 B/P (MAP) 163/94 Pulse Ox 99 O2 Delivery Room Air Blood Pressure Mean: 117 Progress Note : Progress Note THERE IS NOT ANY EXTERNAL EVIDENCE OF CELLULITIS TO ABDOMEN ON EXAM. Diagnostic Imaging Comments CT ABDOMEN/PELVIS--POSSIBLE MILD INFLAMMATION OF SUB Q TISSUES AROUND UMBILICUS , POSSIBLY CELLULITIS--PER RADIOLOGIST REPORT @ 2004 Reviewed: Reviewed by Me Departure Impression Impression: Primary Impression: Lower abdominal pain Additional Impressions: POSSIBLE PID Bacterial vaginosis Disposition: HOME, SELF-CARE Condition: Stable Departure-Patient Inst. Referrals: [facility] Patient Instructions: Acute Abdomen (Belly Pain), Adult (DC), Bacterial Vaginosis (DC), Pelvic Inflammatory Disease (DC) Add. Discharge Instructions: NOTHING IN VAGINA-NO TAMPONS, DOUCHING OR INTERCOURSE UNTIL YOU ARE CLEARED BY YOUR DR LOTS OF CLEAR LIQUIDS--WATER, BROTH, JELLO, GATORAD FOLLOW UP WITH [facility] IN 2-3 DAYS FOR FURTHER CARE All discharge instructions reviewed with patient and/or family. Voiced understanding. Scripts Naproxen (Naproxen) 500 Mg Tablet 500 MG PO BID, #20 TAB Prov: MAMTA GAMBLE DO 01/18/17 Metronidazole (Flagyl) 500 Mg Tablet 500 MG PO QID for FOR INFECTION, #40 TAB Prov: MAMTA GAMBLE DO 01/18/17 Doxycycline Monohydrate (Doxycycline Monohydrate) 100 Mg Capsule 100 MG PO BID, #20 CAP Prov: MAMTA GAMBLE DO 01/18/17 Images Torso/Trunk 1 - Moderate, Tenderness MAMTA GAMBLE DO Jan 18, 2017 19:09
[2017-01-18 19:11] LABS: BILIRUBIN,URINE NEGATIVE (NEGATIVE); KETONES,URINE NEGATIVE (NEGATIVE); LEUKOCYTE ESTERASE ,URINE 1+ (NEGATIVE); NITRITE,URINE NEGATIVE (NEGATIVE); PH,URINE 6 (5-9); PROTEIN,URINE 1+ (NEGATIVE); UROBILINOGEN,URINE NORMAL (NORMAL)
[2017-01-18 19:17] LABS: SQUAMOUS EPITHELIAL CELL,UR >50 /HPF
[2017-01-18] MEDS: LACTATED RINGERS 1,000 ML IV ONE (19:28)
[2017-01-18] MEDS: ONDANSETRON 4 MG/2 ML (SDV) Z0FRAN IVP ONE (19:28)
[2017-01-18 19:33] LABS: ALANINE AMINOTRANSFERASE 13 U/L (0-55); ALBUMIN 4.4 G/DL (3.2-4.5); AMYLASE 41 U/L (25-125); ANION GAP 12 MMOL/L (5-14); ASPARTATE AMINO TRANSFERASE 18 U/L (5-34); BILIRUBIN,TOTAL 0.3 MG/DL (0.1-1.0); BLOOD UREA NITROGEN 16 MG/DL (7-18); BUN/CREATININE RATIO 19; CALCIUM 11.5 MG/DL (8.5-10.1); CARBON DIOXIDE 22 MMOL/L (21-32); CHLORIDE 107 MMOL/L (98-107); CREATININE SERUM 0.86 MG/DL (0.60-1.30); GFR ESTIMATED > 60; GLUCOSE 81 MG/DL (70-105); LIPASE 18 U/L (8-78); POTASSIUM 3.7 MMOL/L (3.6-5.0); SODIUM 141 MMOL/L (135-145); TOTAL PROTEIN 8.4 G/DL (6.4-8.2)
[2017-01-18] MEDS: NS 100 ML (IVPB) BAG IV ONE (19:39)
[2017-01-18] MEDS: IOHEXOL 350 MG/ML 100 ML (OMNIPAQUE 350) VIAL IV ONE (19:39)
--- NOTE | 2017-01-18 20:00 | Diagnostic Imaging Report ---
PROCEDURE: CT abdomen and pelvis with contrast, rule out appendicitis. TECHNIQUE: Multiple contiguous axial images were obtained through the abdomen and pelvis after the administration of intravenous contrast. INDICATION: Lower abdominal pain with nausea and constipation for one week, previous hernia surgery and . COMPARISON STUDY: CT scan dated 10/08/2015. FINDINGS: The lung bases are clear. The liver, gallbladder, spleen, pancreas, adrenal glands, and kidneys appear normal. No renal calculi or hydronephrosis present. Urinary bladder is decompressed. The uterus and ovaries appear unremarkable. The colon, appendix, and small bowel appear normal. No ascites, free air, or abnormal adenopathy is present. The vascular and osseous structures are normal. There is mild inflammation of the subcutaneous tissues around the umbilicus possible cellulitis. IMPRESSION: There is some mild inflammation of the subcutaneous tissues around the umbilicus, possible cellulitis. Dictated by: Dictated on workstation # [id number]
[2017-01-18] MEDS ORDERED: DOXY100C42 PO (20:40)
[2017-01-18] MEDS ORDERED: METR500T PO (20:40)
[2017-01-18] MEDS ORDERED: NAPR500T3 PO (20:40)
[2017-01-18] MEDS: AZITHROMYCIN 250 MG TAB (ZITHROMAX) PO STA (20:51)
[2017-01-18] MEDS: LIDOCAINE 1% INJ 20 ML (XYLOCAINE) VIAL INJ ONE (20:57)
[2017-01-18] MEDS: cefTRIAXone 1 GM (ROCEPHIN) VIAL IM ONE (20:57)
[2017-01-18 21:06] VITALS: BP 130/72
[2017-01-20 09:22] LABS: CHLAMYDIA DNA PROBE PT Negative (Negative)
[2017-01-20 13:10] LABS: NEISSERIA GONORRHEA DNA Negative (Negative)
== END 2017-01-18 21:06 | disposition home or self-care (01) ==
LOC: EDUNIT# 18:27 → ER 18:28
DX: R10.30 Lower abdominal pain, unspecified (principal); N76.0 Acute vaginitis
CPT/HCPCS: 36415; 74177; 80053; 81000; 82150; 83690; 84703; 85025; 87070; 87210; 87220; 87491; 87591

== ENCOUNTER 2017-04-06 09:28 | Emergency (ER) | payer MEDICAID, OTHER ==
[~2017-04-06] VITALS: Ht 170.2 cm; Wt 113.4 kg
[~2017-04-06 09:28] MED LIST changes: +DOXY100C42 PO; +METR500T PO; +NAPR500T3 PO
[2017-04-06] MEDS ORDERED: INHALER (09:51)
--- NOTE | 2017-04-06 11:16 | ED Chest Pain ---
General Chief Complaint: Chest Wall/Rib Pain Stated Complaint: DIZZY,LIGHT-HEADED,SOB,CP Nursing Triage Note: AMB TO ROOM C/O BEING DIZZY AND PAIN ON R SIDE OF CHEST WORSE WITH INSPIRATON. Nursing Sepsis Screen: No Definite Risk Allergies and Home Medications Allergies Coded Allergies: fexofenadine (Verified Allergy, Unknown, 11/20/13) Home Medications [Inhaler] , (Reported) Past Qbnbplt-Vkkiha-Xmvttf Hx Patient Social History Alcohol Use: Occasionally Uses Recreational Drug Use: No Smoking Status: Never a Smoker 2nd Hand Smoke Exposure: Yes Recent Foreign Travel: No Contact w/Someone Who Travel: No Recent Infectious Disease Expo: No Recent Hopitalizations: Yes ( 3 months ago) Immunizations Up To Date Tetanus Booster (TDap): Less than 5yrs PED Vaccines UTD: No Date of Influenza Vaccine: Jun 10, 2016 Seasonal Allergies Seasonal Allergies: Yes Surgeries HX Surgeries: Yes (UMBILICAL HERNIA; X 2) Surgeries: Abdominal, Section Respiratory Hx Respiratory Disorders: Yes Respiratory Disorders: Asthma Cardiovascular Hx Cardiac Disorders: No Neurological Hx Neurological Disorders: Yes Neurological Disorders: Concussion Reproductive System Hx Reproductive Disorders: No Female Reproductive Disorders: Denies Genitourinary Hx Genitourinary Disorders: No Gastrointestinal Hx Gastrointestinal Disorders: No Musculoskeletal Hx Musculoskeletal Disorders: No Endocrine Hx Endocrine Disorders: No HEENT HX ENT Disorders: No Cancer Hx Cancer: No Psychosocial Hx Psychiatric Problems: No Integumentary HX Skin/Integumentary Disorder: No Blood Transfusions Hx Blood Disorders: No Adverse Reaction to a Blood Tr: No Family Medical History Family Medial History: Asthma G8 BROTHER Congenital heart disease 19 MOTHER (heart murmur) Psychosocial problem 19 MOTHER Seizure disorder 19 MOTHER No Family History of: AIDS Abdominal aortic aneurysm Malin's disease Alcoholism Alzheimer's disease Aphasia Arthritis Cancer of mouth Cardiovascular disease Cataracts Colon cancer Completed stroke Congenital disease Coronary thrombosis Cystic fibrosis Deafness or hearing loss Dementia Diabetes mellitus Drug abuse Dysphasia Fibrocystic disease of breast Gastroenteritis Glaucoma Headache disorder Hypercholesterolemia Hypertension Infertility Kidney disease Myocardial infarction Neoplasm Osteoporosis Parkinson's disease Prostate cancer Respiratory disorder Severe allergy Tuberculosis Visual disorder Physical Exam Vital Signs Vital Sign - Last 12Hours 04/06/17 09:36 Temp 98.4 Pulse 90 Resp 18 B/P (MAP) 121/70 Pulse Ox 99 O2 Delivery Room Air Capillary Refill : Less Than 3 Seconds Progress/Results/Core Measures Results/Orders Lab Results Laboratory Tests Test 04/06/17 11:15 Range/Units Urine Color YELLOW Urine Clarity VERY CLOUDY H Urine pH 6.5 5-9 Urine Specific [place] 1.020 1.016-1.022 Urine Protein 1+ H NEGATIVE Urine Glucose (UA) NEGATIVE NEGATIVE Urine Ketones NEGATIVE NEGATIVE Urine Nitrite POSITIVE H NEGATIVE Urine Bilirubin NEGATIVE NEGATIVE Urine Urobilinogen NORMAL NORMAL MG/DL Urine Leukocyte Esterase 1+ H NEGATIVE Urine RBC (Auto) NEGATIVE NEGATIVE Urine RBC NONE /HPF Urine WBC 25-50 H /HPF Urine Squamous Epithelial Cells 10-25 H /HPF Urine Crystals NONE /LPF Urine Bacteria LARGE H /HPF Urine Casts NONE /LPF Urine Mucus MODERATE H /LPF Urine Culture Indicated YES My Orders Orders - MAMTA GAMBLE DO Urine Bedside (04/06/17 11:14) Chest Pa/Lat (2 View) (04/06/17 11:14) Ua Culture If Indicated (04/06/17 11:20) Urine Culture (04/06/17 11:15) Vital Signs/I&O Vital Sign - Last 12Hours 04/06/17 09:36 Temp 98.4 Pulse 90 Resp 18 B/P (MAP) 121/70 Pulse Ox 99 O2 Delivery Room Air Blood Pressure Mean: 87 Departure Impression Impression: Primary Impression: RIGHT ANTERIOR CHEST WALL PAIN Additional Impression: Urinary tract infection Disposition: 01 HOME, SELF-CARE Condition: Stable Departure-Patient Inst. Referrals: [facility] (PCP/Family) Primary Care Physician Patient Instructions: Chest Pain That Is Not Caused by the Heart (DC), Urinary Tract Infection, Adult (DC) Add. Discharge Instructions: MOIST HEAT TO AREA AT 20 MINUTE INTERVALS ACTIVITIES TOLERATED LOTS OF CLEAR LIQUIDS FOLLOW UP WITH YOUR DR IN 3-4 DAYS IF NO BETTER All discharge instructions reviewed with patient and/or family. Voiced understanding. Scripts Nitrofurantoin Monohyd/M-Cryst (Macrobid 100 mg Capsule) 100 Mg Capsule 100 MG PO BID, #20 CAP Prov: MAMTA GAMBLE DO 04/06/17 Naproxen (Naproxen) 500 Mg Tablet 500 MG PO BID, #20 TAB Prov: MAMTA GAMBLE DO 04/06/17 MAMTA GAMBLE DO Apr 06, 2017 11:16
[2017-04-06 11:29] LABS: BILIRUBIN,URINE NEGATIVE (NEGATIVE); KETONES,URINE NEGATIVE (NEGATIVE); LEUKOCYTE ESTERASE ,URINE 1+ (NEGATIVE); NITRITE,URINE POSITIVE (NEGATIVE); PH,URINE 6.5 (5-9); PROTEIN,URINE 1+ (NEGATIVE); UROBILINOGEN,URINE NORMAL (NORMAL)
[2017-04-06 11:38] LABS: WBC,URINE 25-50 /HPF
--- NOTE | 2017-04-06 11:45 | Diagnostic Imaging Report ---
INDICATION: Chest pain PA and lateral chest Heart size and pulmonary vascularity are normal. Lungs are clear. There are no effusions or pneumothoraces. IMPRESSION: Negative chest Dictated by: Dictated on workstation # [id number]
[2017-04-06] MEDS ORDERED: NAPR500T3 PO (12:05)
[2017-04-06] MEDS ORDERED: NITR-65 PO (12:05)
[2017-04-06 12:21] VITALS: BP 123/91
== END 2017-04-06 12:24 | disposition home or self-care (01) ==
LOC: EDUNIT# 09:28 → ER 09:31
DX: R07.89 Other chest pain (principal); N39.0 Urinary tract infection, site not specified; J45.909 Unspecified asthma, uncomplicated; Z77.22 Contact with and (suspected) exposure to environmental tobacco smoke (acute) (chronic); Z87.59 Personal history of other complications of pregnancy, childbirth and the puerperium; Z87.19 Personal history of other diseases of the digestive system; Z82.49 Family history of ischemic heart disease and other diseases of the circulatory system
CPT/HCPCS: 71020; 81000; 84703; 87088; 87186; 93041

== ENCOUNTER 2017-06-01 15:17 | Emergency (ER) | payer OTHER, MEDICAID ==
[~2017-06-01] VITALS: Ht 170.2 cm; Wt 113.4 kg
[~2017-06-01 15:17] MED LIST changes: +INHALER
[2017-06-01] MEDS: NS IV 1000 ML 1,000 ML IV ONE (15:38)
[2017-06-01 15:43] LABS: BASOPHILS # (AUTO) 0.1 10^3/uL (0.0-0.1); BASOPHILS % (AUTO) 1 % (0-10); EOSINOPHILS # (AUTO) 0.1 10^3/uL (0.0-0.3); EOSINOPHILS % (AUTO) 1 % (0-10); LYMPHOCYTES # (AUTO) 2.7 X 10^3 (1.0-4.0); LYMPHOCYTES % (AUTO) 24 % (12-44); MEAN CORPUSCULAR HEMOGLOBIN 23 PG (25-34); MEAN CORPUSCULAR HGB CONC 31 G/DL (32-36); MEAN CORPUSCULAR VOLUME 73 FL (80-99); MONOCYTES # (AUTO) 0.8 X 10^3 (0.0-1.0); MONOCYTES % (AUTO) 7 % (0-12); NEUTROPHILS # (AUTO) 7.7 X 10^3 (1.8-7.8); NEUTROPHILS % (AUTO) 68 % (42-75); PLATELET COUNT 482 10^3/uL (130-400); RED BLOOD COUNT 4.72 10^6/uL (4.35-5.85); RED CELL DISTRIBUTION WIDTH 16.6 % (10.0-14.5); WHITE BLOOD COUNT 11.3 10^3/uL (4.3-11.0)
[2017-06-01 15:45] LABS: BILIRUBIN,URINE NEGATIVE (NEGATIVE); KETONES,URINE NEGATIVE (NEGATIVE); LEUKOCYTE ESTERASE ,URINE 1+ (NEGATIVE); NITRITE,URINE POSITIVE (NEGATIVE); PH,URINE 5 (5-9); PROTEIN,URINE 1+ (NEGATIVE); UROBILINOGEN,URINE NORMAL (NORMAL)
[2017-06-01] MEDS ORDERED: AMIT25TA9 (15:48)
[2017-06-01 15:53] LABS: SQUAMOUS EPITHELIAL CELL,UR >50 /HPF
[2017-06-01 16:02] LABS: ALANINE AMINOTRANSFERASE 13 U/L (0-55); ALBUMIN 4.3 GM/DL (3.2-4.5); ANION GAP 10 MMOL/L (5-14); ASPARTATE AMINO TRANSFERASE 14 U/L (5-34); BILIRUBIN,TOTAL 0.4 MG/DL (0.1-1.0); BLOOD UREA NITROGEN 15 MG/DL (7-18); BUN/CREATININE RATIO 18; CALCIUM 9.7 MG/DL (8.5-10.1); CARBON DIOXIDE 24 MMOL/L (21-32); CHLORIDE 106 MMOL/L (98-107); CREATININE SERUM 0.85 MG/DL (0.60-1.30); GFR ESTIMATED > 60; GLUCOSE 97 MG/DL (70-105); POTASSIUM 3.6 MMOL/L (3.6-5.0); SODIUM 140 MMOL/L (135-145); TOTAL PROTEIN 8.2 GM/DL (6.4-8.2)
--- NOTE | 2017-06-01 16:04 | ED Syncope ---
General Chief Complaint: Dizziness/Syncope Stated Complaint: DIZZINESS/SYNCOPE Nursing Triage Note: 1415 states that she "passed out" while in line at [facility]. States she did hit back of head but denies issues or neck pain. Unsure how long she was passed out. [facility] tried to call ambulance but she refused. States at home- approx 1515, became dizzy and nauseated, unable to stand. 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 She reports she did hit her head at that time. She denied transport. She went home and was thinking that she is feeling better but was dizzy and nauseated and had difficulty standing. Has not vomited. Otherwise has not had any recent illness, plain tripped or car rides. No recent trauma or surgeries. Denies breathing problems Timing/Prior Episodes: No Prior History Symptoms Prior to Episode: Lightheadedness Precipitating Factors: Standing Loss of Consciousness: No Loss of Consciousness Current Symptoms: Headache, Lightheadedness, Nausea Allergies and Home Medications Allergies Coded Allergies: fexofenadine (Verified Allergy, Unknown, 06/01/17) Home Medications Amitriptyline HCl 25 Mg Tablet, (Reported) Constitutional: see HPI, No chills, No fever EENTM: no symptoms reported Respiratory: no symptoms reported Cardiovascular: see HPI, No palpitations, syncope Gastrointestinal: No abdominal pain, No diarrhea, No vomiting Genitourinary: no symptoms reported Musculoskeletal: no symptoms reported Skin: no symptoms reported Psychiatric/Neurological: Headache (mild posterior) All Other Systems Reviewed Negative Unless Noted: Yes Past Inscljd-Qodedo-Lnomag Hx Patient Social History Alcohol Use: Rarely Uses Recreational Drug Use: No Smoking Status: Current Everyday Smoker 2nd Hand Smoke Exposure: Yes Recent Foreign Travel: No Contact w/Someone Who Travel: No Recent Infectious Disease Expo: No Recent Hopitalizations: Yes ( 3 months ago) Physical Abuse: No Sexual Abuse: No Mistreated: No Fear: No Immunizations Up To Date Tetanus Booster (TDap): Less than 5yrs PED Vaccines UTD: No Date of Influenza Vaccine: Aug 20, 2016 Seasonal Allergies Seasonal Allergies: Yes Surgeries History of Surgeries: Yes (HERNIA) Surgeries: Abdominal, Section Respiratory History of Respiratory Disorde: Yes Respiratory Disorders: Asthma Currently Using CPAP: No Currently Using BIPAP: No Cardiovascular History of Cardiac Disorders: No Neurological History of Neurological Disord: Yes Neurological Disorders: Concussion Reproductive System Hx Reproductive Disorders: No Female Reproductive Disorders: Denies Genitourinary History of Genitourinary Disor: No Gastrointestinal History of Gastrointestinal Di: No Musculoskeletal History of Musculoskeletal Dis: No Endocrine History of Endocrine Disorders: No HEENT History of HEENT Disorders: No Cancer History of Cancer: No Psychosocial History of Psychiatric Problem: No Suicide Risk Score: 0 Integumentary History of Skin or Integumenta: No Blood Transfusions History of Blood Disorders: Yes (anemia) Adverse Reaction to a Blood Tr: No Reviewed Nursing Assessment Reviewed/Agree w Nursing PMH: Yes Family Medical History Significant Family History: No Pertinent Family Hx Family Medial History: Asthma G8 BROTHER Congenital heart disease 19 MOTHER (heart murmur) Psychosocial problem 19 MOTHER Seizure disorder 19 MOTHER Physical Exam Vital Signs Vital Sign - Last 12Hours 06/01/17 15:38 Temp 97.7 Pulse 105 Resp 20 B/P (MAP) 136/75 Pulse Ox 100 Capillary Refill : Less Than 3 Seconds General Appearance: No Apparent Distress, WD/WN HEENT: PERRL/EOMI, Pharynx Normal Neck: Normal Inspection, Non Tender, Supple Cardiovascular: Regular Rate, Rhythm, No Murmur Respiratory: Lungs Clear, Normal Breath Sounds Gastrointestinal: Non Tender, Soft Back: Normal Inspection, No CVA Tenderness, No Vertebral Tenderness Extremities: Normal Range of Motion, Non Tender Neurologic/Psychiatric: Alert, Oriented x3 Coordination/Gait: Normal Gait Motor/Sensory: No Motor Deficit, No Sensory Deficit Skin: Normal Color, Warm/Dry Progress/Results/Core Measures Results/Orders Lab Results Laboratory Tests Test 06/01/17 15:30 06/01/17 15:36 Range/Units Urine Color CECI H Urine Clarity SLIGHTLY CLOUDY Urine pH 5 5-9 Urine Specific [place] 1.025 H 1.016-1.022 Urine Protein 1+ H NEGATIVE Urine Glucose (UA) NEGATIVE NEGATIVE Urine Ketones NEGATIVE NEGATIVE Urine Nitrite POSITIVE H NEGATIVE Urine Bilirubin NEGATIVE NEGATIVE Urine Urobilinogen NORMAL NORMAL MG/DL Urine Leukocyte Esterase 1+ H NEGATIVE Urine RBC (Auto) 1+ H NEGATIVE Urine RBC NONE /HPF Urine WBC 2-5 /HPF Urine Squamous Epithelial Cells >50 H /HPF Urine Crystals NONE /LPF Urine Bacteria FEW H /HPF Urine Casts NONE /LPF Urine Mucus SMALL H /LPF Urine Culture Indicated NO White Blood Count 11.3 H 4.3-11.0 10^3/uL Red Blood Count 4.72 4.35-5.85 10^6/uL Hemoglobin 10.6 L 11.5-16.0 G/DL Hematocrit 34 L 35-52 % Mean Corpuscular Volume 73 L 80-99 FL Mean Corpuscular Hemoglobin 23 L 25-34 PG Mean Corpuscular Hemoglobin Concent 31 L 32-36 G/DL Red Cell Distribution Width 16.6 H 10.0-14.5 % Platelet Count 482 H 130-400 10^3/uL Mean Platelet Volume 9.0 7.4-10.4 FL Neutrophils (%) (Auto) 68 42-75 % Lymphocytes (%) (Auto) 24 12-44 % Monocytes (%) (Auto) 7 0-12 % Eosinophils (%) (Auto) 1 0-10 % Basophils (%) (Auto) 1 0-10 % Neutrophils # (Auto) 7.7 1.8-7.8 X 10^3 Lymphocytes # (Auto) 2.7 1.0-4.0 X 10^3 Monocytes # (Auto) 0.8 0.0-1.0 X 10^3 Eosinophils # (Auto) 0.1 0.0-0.3 10^3/uL Basophils # (Auto) 0.1 0.0-0.1 10^3/uL Sodium Level 140 135-145 MMOL/L Potassium Level 3.6 3.6-5.0 MMOL/L Chloride Level 106 98-107 MMOL/L Carbon Dioxide Level 24 21-32 MMOL/L Anion Gap 10 5-14 MMOL/L Blood Urea Nitrogen 15 7-18 MG/DL Creatinine 0.85 0.60-1.30 MG/DL Estimat Glomerular Filtration Rate > 60 BUN/Creatinine Ratio 18 Glucose Level 97 70-105 MG/DL Calcium Level 9.7 8.5-10.1 MG/DL Magnesium Level 2.0 1.8-2.4 MG/DL Total Bilirubin 0.4 0.1-1.0 MG/DL Aspartate Amino Transf (AST/SGOT) 14 5-34 U/L Alanine Aminotransferase (ALT/SGPT) 13 0-55 U/L Alkaline Phosphatase 84 40-136 U/L Total Protein 8.2 6.4-8.2 GM/DL Albumin 4.3 3.2-4.5 GM/DL My Orders Orders - DERRICK WALLACE MD Cbc With Automated Diff (06/01/17 15:30) Comprehensive Metabolic Panel (06/01/17 15:30) Magnesium (06/01/17 15:30) Ua Culture If Indicated (06/01/17 15:30) Saline Lock/Iv-Start (06/01/17:30) Ns Iv 1000 Ml (Sodium Chloride 0.9%) (06/01/17 15:30) Ct Head Wo (06/01/17 15:30) Urine Bedside (06/01/17 15:30) Sulfamethoxazole/Trimet Ds Tab (Bactrim (06/01/17 17:34) Medications Given in ED Current Medications Medications Dose Ordered Sig/Harjinder Route Start Time Stop Time Status Last Admin Dose Admin Sodium Chloride 1,000 ml @ 0 mls/hr Q0M ONCE IV 06/01/17 15:30 06/01/17 15:32 DC 06/01/17 15:38 1,000 MLS/HR Vital Signs/I&O Vital Sign - Last 12Hours 06/01/17 15:38 Temp 97.7 Pulse 105 Resp 20 B/P (MAP) 136/75 Pulse Ox 100 Blood Pressure Mean: 95 Point of Care Testing Urine -Bedside: Negative Progress Note : Progress Note Seen and evaluated. IV, labs and UA ordered. Normal saline [address] head due to fall and hitting head. Monitor patient. 1730: UTI noted. Patient has history of urinary tract infections in the past that are responding to Bactrim. Bactrim DS one tab by mouth given. Discharged home with return precautions. Patient verbalize understanding instructions and agreement with plan. Diagnostic Imaging Diagonstic Imaging: CT Plain Films/CT/US/NM/MRI: head Comments NAME: TRUE BRUMFIELD MED REC#: [id number] PT STATUS: REG ER : 1995 PHYSICIAN: DERRICK WALLACE MD ADMIT DATE: 06/01/17/ER Signed Date of Exam: 06/01/17 CT HEAD WO INDICATION: Syncope. TECHNIQUE: Routine non contrast-enhanced axial images were obtained from the skull base to the vertex. COMPARISON: 04/01/2011 FINDINGS: The ventricles and cortical sulci are normal in size and contour. There is no midline shift or mass-effect. No acute intra-axial hemorrhage is seen. There are no abnormal areas of increased or decreased density to suggest acute hemorrhage or edema. No extra-axial masses or collections are present. The bony calvarium is intact. The visualized paranasal sinuses are unremarkable. The mastoid air cells are clear. IMPRESSION: 1. No acute intracranial abnormality. No CT evidence of mass, acute infarct or intracranial hemorrhage. Dictated by: Dictated on workstation # [id number] Dict: 06/01/178 Trans: 06/01/171702 Interpreted by: MAYTE DELAROSA MD Electronically signed by: MAYTE DELAROSA MD 06/01/171702 Departure Impression Impression: Primary Impression: Urinary tract infection Qualified Codes: N30.00 - Acute cystitis without hematuria Disposition: HOME, SELF-CARE Condition: Improved Departure-Patient Inst. Decision time for Depature: 17:45 Referrals: [facility] (PCP/Family) Primary Care Physician Patient Instructions: Urinary Tract Infection, Adult (DC) Add. Discharge Instructions: All discharge instructions reviewed with patient and/or family. Voiced understanding. Take medications as directed. Drink plenty of fluids. You may take ibuprofen 800 mg every 8 hours as needed for pain. He may take Tylenol 1000 mg every 8 hours as needed for pain. Follow-up with your DrPhillip in a few days for recheck. Return for worse pain, fever, vomiting, weakness, breathing problems or other concerns as needed. Scripts Sulfamethoxazole/Trimethoprim (Sulfamethoxazole-Tmp Ds Tablet) 1 Each Tablet 1 EACH PO BID, #13 TAB 0 Refills Prov: DERRICK WALLACE MD 06/01/17 DERRICK WALLACE MD Jun 01, 2017 16:04
--- NOTE | 2017-06-01 16:13 | Diagnostic Imaging Report ---
INDICATION: Syncope. TECHNIQUE: Routine non contrast-enhanced axial images were obtained from the skull base to the vertex. COMPARISON: 04/01/2011 FINDINGS: The ventricles and cortical sulci are normal in size and contour. There is no midline shift or mass-effect. No acute intra-axial hemorrhage is seen. There are no abnormal areas of increased or decreased density to suggest acute hemorrhage or edema. No extra-axial masses or collections are present. The bony calvarium is intact. The visualized paranasal sinuses are unremarkable. The mastoid air cells are clear. IMPRESSION: 1. No acute intracranial abnormality. No CT evidence of mass, acute infarct or intracranial hemorrhage. Dictated by: Dictated on workstation # [id number]
[2017-06-01] MEDS: TRIM/SULFAMETH 160/800 (SEPTRA DS) TAB PO STA (17:35)
[2017-06-01] MEDS ORDERED: SULF-222 PO (17:48)
[2017-06-01 18:08] VITALS: BP 130/60
== END 2017-06-01 18:08 | disposition home or self-care (01) ==
LOC: EDUNIT# 15:17 → ER 15:20
DX: N39.0 Urinary tract infection, site not specified (principal); J45.909 Unspecified asthma, uncomplicated; Z82.49 Family history of ischemic heart disease and other diseases of the circulatory system; Z77.22 Contact with and (suspected) exposure to environmental tobacco smoke (acute) (chronic); Z87.59 Personal history of other complications of pregnancy, childbirth and the puerperium; Z87.19 Personal history of other diseases of the digestive system
CPT/HCPCS: 36415; 70450; 80053; 81000; 83735; 84703; 85025

== ENCOUNTER 2017-07-19 09:52 | Emergency (ER) | payer MEDICAID, OTHER ==
[~2017-07-19] VITALS: Ht 170.2 cm; Wt 113.4 kg
[~2017-07-19 09:52] MED LIST changes: +AMIT25TA9; -NAPR500T3 PO; +NAPR500T4 PO; +SULF-222 PO
[2017-07-19 10:17] LABS: BILIRUBIN,URINE NEGATIVE (NEGATIVE); KETONES,URINE 1+ (NEGATIVE); LEUKOCYTE ESTERASE ,URINE 1+ (NEGATIVE); NITRITE,URINE NEGATIVE (NEGATIVE); PH,URINE 6.5 (5-9); PROTEIN,URINE 1+ (NEGATIVE); UROBILINOGEN,URINE NORMAL (NORMAL)
[2017-07-19 10:25] LABS: BASOPHILS # (AUTO) 0.1 10^3/uL (0.0-0.1); BASOPHILS % (AUTO) 0 % (0-10); EOSINOPHILS # (AUTO) 0.1 10^3/uL (0.0-0.3); EOSINOPHILS % (AUTO) 1 % (0-10); LYMPHOCYTES # (AUTO) 2.2 X 10^3 (1.0-4.0); LYMPHOCYTES % (AUTO) 19 % (12-44); MEAN CORPUSCULAR HEMOGLOBIN 24 PG (25-34); MEAN CORPUSCULAR HGB CONC 32 G/DL (32-36); MEAN CORPUSCULAR VOLUME 75 FL (80-99); MEAN PLATELET VOLUME 9.5 FL (7.4-10.4); MONOCYTES # (AUTO) 0.8 X 10^3 (0.0-1.0); MONOCYTES % (AUTO) 7 % (0-12); NEUTROPHILS # (AUTO) 8.4 X 10^3 (1.8-7.8); NEUTROPHILS % (AUTO) 73 % (42-75); PLATELET COUNT 454 10^3/uL (130-400); RED BLOOD COUNT 4.52 10^6/uL (4.35-5.85); RED CELL DISTRIBUTION WIDTH 16.5 % (10.0-14.5); WHITE BLOOD COUNT 11.5 10^3/uL (4.3-11.0)
[2017-07-19 10:42] LABS: ALANINE AMINOTRANSFERASE 16 U/L (0-55); ALBUMIN 4.3 GM/DL (3.2-4.5); ANION GAP 10 MMOL/L (5-14); ASPARTATE AMINO TRANSFERASE 13 U/L (5-34); BILIRUBIN,TOTAL 0.4 MG/DL (0.1-1.0); BLOOD UREA NITROGEN 16 MG/DL (7-18); BUN/CREATININE RATIO 21; CALCIUM 9.4 MG/DL (8.5-10.1); CARBON DIOXIDE 22 MMOL/L (21-32); CHLORIDE 107 MMOL/L (98-107); CREATININE SERUM 0.75 MG/DL (0.60-1.30); GFR ESTIMATED > 60; GLUCOSE 83 MG/DL (70-105); POTASSIUM 3.8 MMOL/L (3.6-5.0); SODIUM 139 MMOL/L (135-145)
[2017-07-19] MEDS ORDERED: NS IV 1000 ML 1,000 ML IV ONE (11:21)
[2017-07-19] MEDS ORDERED: KETOROLAC 30 MG/ML VIAL IVP STA (11:21)
[2017-07-19] MEDS ORDERED: IOHEXOL 350 MG/ML 100 ML (OMNIPAQUE 350) VIAL IV ONE ×2 (11:30)
[2017-07-19] MEDS ORDERED: NS 100 ML (IVPB) BAG IV ONE ×2 (11:30)
--- NOTE | 2017-07-19 11:44 | ED Abdominal Pain ---
General Chief Complaint: Abdominal/GI Problems Stated Complaint: RT SIDE LOWER ABD PAIN Nursing Triage Note: PT CO OF ABD PAIN, R LOWER ABD, STATES HAS VOMITED ONCE, STARTED THIS AM Sepsis Screen: No Definite Risk History of Present Illness Time Seen By Provider: 11:10 Initial Comments 22-year-old female reports that she began having abdominal pain at 0700 this morning. She had just eaten a sausage McMuffin and coffee, she vomited after eating. She's had an additional episode of emesis prior to arrival. She denies nausea at this time. She's been treated for UTI in January 2017 with Flagyl and doxycycline and June 01, 2017 with Bactrim DS. She denies any urinary symptoms at this time. Pain is 7/10 isolated to the right lower quadrant. Timing/Duration: 12-24 Hours Severity/Quality: Moderate Location: RLQ Radiation: No Radiation Activities at Onset: None Modifying Factors: Improves With Analgesics (Tylenol at 0400) Associated Symptoms: No Back Pain, No Chest Pain, No Diaphoresis, No Fever/ Chills, No Fatigue, No Headache, No Heartburn, Nausea/Vomiting, No Rash, No Shortness of Air, No Swelling/Mass in Abdomen, No Syncope, No Weakness Allergies and Home Medications Allergies Coded Allergies: fexofenadine (Verified Allergy, Unknown, 06/01/17) Home Medications Amitriptyline HCl 25 Mg Tablet, (Reported) Ciprofloxacin HCl 500 Mg Tablet, 500 MG PO BID, #10 Ref 0 Prescribed by: LAURI LAZARO on 07/19/17 1341 Ondansetron 8 Mg Tab.rapdis, 8 MG PO Q8H, #6 Ref 0 Prescribed by: LAURI LAZARO on 07/19/17 1341 Sulfamethoxazole/Trimethoprim 1 Each Tablet, 1 EACH PO BID, #13 Ref 0 Prescribed by: DERRICK WALLACE on 06/01/17 6938 Review of Systems Constitutional: no symptoms reported, see HPI Gastrointestinal: See HPI, Abdominal Pain (right lower quadrant), Denies Constipated, Diarrhea (2 days, approximately 2 episodes per day), Nausea, Poor Appetite, Vomiting (2 today) Genitourinary: No Symptoms Reported, See HPI, Denies Burning, Denies Discharge , Denies Frequency, Denies Flank Pain, Denies Hematuria, Denies Incontinence, Denies Pain, Denies Urgency All Other Systems Reviewed Negative Unless Noted: Yes Past Akrrsil-Iicnrk-Jatguq Hx Patient Social History 2nd Hand Smoke Exposure: Yes Recent Foreign Travel: No Contact w/Someone Who Travel: No Recent Infectious Disease Expo: No Recent Hopitalizations: Yes ( 3 months ago) Immunizations Up To Date Tetanus Booster (TDap): Less than 5yrs PED Vaccines UTD: No Date of Influenza Vaccine: Aug 20, 2016 Seasonal Allergies Seasonal Allergies: Yes Surgeries History of Surgeries: Yes (HERNIA) Surgeries: Abdominal, Section Respiratory History of Respiratory Disorde: Yes Respiratory Disorders: Asthma Currently Using CPAP: No Currently Using BIPAP: No Cardiovascular History of Cardiac Disorders: No Neurological History of Neurological Disord: Yes Neurological Disorders: Concussion Reproductive System Hx Reproductive Disorders: No Female Reproductive Disorders: Denies Genitourinary History of Genitourinary Disor: No Gastrointestinal History of Gastrointestinal Di: No Musculoskeletal History of Musculoskeletal Dis: No Endocrine History of Endocrine Disorders: No HEENT History of HEENT Disorders: No Cancer History of Cancer: No Psychosocial History of Psychiatric Problem: No Integumentary History of Skin or Integumenta: No Blood Transfusions History of Blood Disorders: Yes (anemia) Adverse Reaction to a Blood Tr: No Reviewed Nursing Assessment Reviewed/Agree w Nursing PMH: Yes Family Medical History Significant Family History: No Pertinent Family Hx Family Medial History: Asthma G8 BROTHER Congenital heart disease 19 MOTHER (heart murmur) Psychosocial problem 19 MOTHER Seizure disorder 19 MOTHER No Family History of: AIDS Abdominal aortic aneurysm Mark's disease Alcoholism Alzheimer's disease Aphasia Arthritis Cancer of mouth Cardiovascular disease Cataracts Colon cancer Completed stroke Congenital disease Coronary thrombosis Cystic fibrosis Deafness or hearing loss Dementia Diabetes mellitus Drug abuse Dysphasia Fibrocystic disease of breast Gastroenteritis Glaucoma Headache disorder Hypercholesterolemia Hypertension Infertility Kidney disease Myocardial infarction Neoplasm Osteoporosis Parkinson's disease Prostate cancer Respiratory disorder Severe allergy Tuberculosis Visual disorder Physical Exam Vital Signs VS - Last 72 Hours, by Label 07/19/17 07/19/17 10:00 14:11 Temp 101.0 98.7 Pulse 98 71 Resp 18 18 B/P (MAP) 143/85 Pulse Ox 100 97 Capillary Refill : Less Than 3 Seconds General Appearance: WD/WN, no apparent distress HEENT: PERRL/EOMI, normal ENT inspection, TMs normal, pharynx normal Neck: non-tender, full range of motion, supple, normal inspection, No lymphadenopathy (R) Respiratory: chest non-tender, lungs clear, normal breath sounds Cardiovascular: normal peripheral pulses, regular rate, rhythm, no edema, no murmur Gastrointestinal: normal bowel sounds, soft, distended, rebound, tenderness ( right lower quadrant), No hepatomegaly, No spleenomegaly, other (positive heeltap, Rovsing's, obturator and psoas sign.) Back: normal inspection, no CVA tenderness, No CVA tenderness (R), No CVA tenderness (L) Neurologic/Psychiatric: no motor/sensory deficits, alert, normal mood/affect, oriented x 3 Skin: normal color, warm/dry Progress/Results/Core Measures Results/Orders Lab Results Laboratory Tests Test 07/19/17 10:00 Range/Units White Blood Count 11.5 H 4.3-11.0 10^3/uL Red Blood Count 4.52 4.35-5.85 10^6/uL Hemoglobin 10.7 L 11.5-16.0 G/DL Hematocrit 34 L 35-52 % Mean Corpuscular Volume 75 L 80-99 FL Mean Corpuscular Hemoglobin 24 L 25-34 PG Mean Corpuscular Hemoglobin Concent 32 32-36 G/DL Red Cell Distribution Width 16.5 H 10.0-14.5 % Platelet Count 454 H 130-400 10^3/uL Mean Platelet Volume 9.5 7.4-10.4 FL Neutrophils (%) (Auto) 73 42-75 % Lymphocytes (%) (Auto) 19 12-44 % Monocytes (%) (Auto) 7 0-12 % Eosinophils (%) (Auto) 1 0-10 % Basophils (%) (Auto) 0 0-10 % Neutrophils # (Auto) 8.4 H 1.8-7.8 X 10^3 Lymphocytes # (Auto) 2.2 1.0-4.0 X 10^3 Monocytes # (Auto) 0.8 0.0-1.0 X 10^3 Eosinophils # (Auto) 0.1 0.0-0.3 10^3/uL Basophils # (Auto) 0.1 0.0-0.1 10^3/uL Urine Color YELLOW Urine Clarity SLIGHTLY CLOUDY Urine pH 6.5 5-9 Urine Specific Duarte 1.015 L 1.016-1.022 Urine Protein 1+ H NEGATIVE Urine Glucose (UA) NEGATIVE NEGATIVE Urine Ketones 1+ H NEGATIVE Urine Nitrite NEGATIVE NEGATIVE Urine Bilirubin NEGATIVE NEGATIVE Urine Urobilinogen NORMAL NORMAL MG/DL Urine Leukocyte Esterase 1+ H NEGATIVE Urine RBC (Auto) NEGATIVE NEGATIVE Urine RBC RARE /HPF Urine WBC 2-5 /HPF Urine Squamous Epithelial Cells 10-25 H /HPF Urine Crystals NONE /LPF Urine Bacteria FEW H /HPF Urine Casts NONE /LPF Urine Mucus NEGATIVE /LPF Urine Culture Indicated YES Sodium Level 139 135-145 MMOL/L Potassium Level 3.8 3.6-5.0 MMOL/L Chloride Level 107 98-107 MMOL/L Carbon Dioxide Level 22 21-32 MMOL/L Anion Gap 10 5-14 MMOL/L Blood Urea Nitrogen 16 7-18 MG/DL Creatinine 0.75 0.60-1.30 MG/DL Estimat Glomerular Filtration Rate > 60 BUN/Creatinine Ratio 21 Glucose Level 83 70-105 MG/DL Calcium Level 9.4 8.5-10.1 MG/DL Total Bilirubin 0.4 0.1-1.0 MG/DL Aspartate Amino Transf (AST/SGOT) 13 5-34 U/L Alanine Aminotransferase (ALT/SGPT) 16 0-55 U/L Alkaline Phosphatase 80 40-136 U/L Total Protein 8.0 6.4-8.2 GM/DL Albumin 4.3 3.2-4.5 GM/DL My Orders Orders - LAURI LAZARO Ketorolac Injection (Toradol Injection) (07/19/17 11:21) Saline Lock/Iv-Start (07/19/17 11:21) Ns Iv 1000 Ml (Sodium Chloride 0.9%) (07/19/17 11:21) Ct Abd/Pelv W (Appendicitis) (07/19/17 11:21) Iohexol Injection (Omnipaque 350 Mg/Ml 1 (07/19/17 11:30) Ns (Ivpb) (Sodium Chloride 0.9% Ivpb Bag (07/19/17 11:30) Pharmacy Communication (Pharmacy Communi (07/19/17 11:24) Iohexol Injection (Omnipaque 350 Mg/Ml 1 (07/19/17 11:30) Ns (Ivpb) (Sodium Chloride 0.9% Ivpb Bag (07/19/17 11:30) Ceftriaxone Injection (Rocephin Injectio (07/19/17 12:15) Acetaminophen Tablet/Caplet (Tylenol T (07/19/17 12:13) Medications Given in ED Current Medications Medications Dose Ordered Sig/Harjinder Route Start Time Stop Time Status Last Admin Dose Admin Ceftriaxone Sodium 1000 mg/ Sodium Chloride 50 ml @ 100 mls/hr ONCE ONCE IV 07/19/17 12:15 07/19/17 12:44 DC 07/19/17 13:04 100 MLS/HR Iohexol 100 ml ONCE ONCE IV 07/19/17 11:30 07/19/17 11:31 DC 07/19/17 11:51 100 ML Sodium Chloride 100 ml ONCE ONCE IV 07/19/17 11:30 07/19/17 11:31 DC 07/19/17 11:51 80 ML Sodium Chloride 1,000 ml @ 0 mls/hr Q0M ONCE IV 07/19/17 11:21 07/19/17 11:23 DC 07/19/17 11:42 0 MLS/HR Vital Signs/I&O Vital Sign - Last 12Hours 07/19/17 07/19/17 10:00 14:11 Temp 101.0 98.7 Pulse 98 71 Resp 18 18 B/P (MAP) 143/85 Pulse Ox 100 97 Intake and Output 07/20/17 00:00 Intake Total 1050 ml Balance 1050 ml Blood Pressure Mean: 104 Point of Care Testing Urine -Bedside: Negative Progress Note : Time: 11:10 Progress Note Initial evaluation completed, discussed findings with patient (temp 101, and WBC 11, with findings consistent for appendicitis )And recommended CT of the abdomen and pelvis. Risks of radiation exposure discussed with the patient and she has had 2 previous CTs in the last 6 months. She agreed with receding with the CT. We'll reevaluate after this assessment completed. [address] abdomen and pelvis, no indication of appendicitis. Reviewed study with Dr. Freitas, he concurred. Patient reports her pain has improved since the Toradol. She is having no nausea. Offered ice chips and she is taking these with no complaints. Will treat with Rocephin 1 g IV for the UTI and if patient continues to improve with symptoms we'll discharge. 1310 Temp 98.7, patient continues to take ice chips with trace nausea. 1330 patient reports pain is improving, no further nausea. Discharge planning discussed with patient with return precautions reviewed. All questions answered. Diagnostic Imaging Diagonstic Imaging: CT Plain Films/CT/US/NM/MRI: abdomen, pelvis Comments NAME: TRUE BRUMFIELD [facility] REC#: [id number] PT STATUS: REG ER : 1995 PHYSICIAN: LAURI LAZARO ADMIT DATE: 07/19/17/ER Draft Date of Exam:07/19/17 CT ABD/PELV W (APPENDICITIS) PROCEDURE: CT abdomen and pelvis with contrast, rule out appendicitis. TECHNIQUE: Multiple contiguous axial images were obtained through the abdomen and pelvis after the administration of intravenous contrast. INDICATION: Right lower quadrant pain and fever. 100 mL of Omnipaque-350 is administered intravenously. FINDINGS: The lung bases demonstrate no significant abnormality. The liver, the gallbladder, the spleen, the pancreas, and the adrenal glands appear unremarkable. The kidneys have symmetric enhancement and contrast excretion. No hydronephrosis. There is diastasis of the recti. A superimposed tiny fat-containing umbilical hernia is also seen. There is no bowel obstruction. No significant free fluid or fluid collection in the abdomen or pelvis is seen. The appendix appears normal. The abdominal aorta is normal in caliber. No para-aortic significantly enlarged lymph node is seen. The uterus and adnexa appear grossly unremarkable. The osseous structures demonstrate vacuum phenomenon and mild degenerative changes in the SI joints. IMPRESSION: Diastasis of the recti and tiny fat-containing umbilical hernia seen. Dictated on workstation # [id number] Dict: 07/19/17 1201 Trans: 07/19/17 1222 [id number] Interpreted by: HECTOR VALENCIA MD Electronically signed by: Departure Impression Impression: Primary Impression: Nausea and vomiting Qualified Codes: R11.2 - Nausea with vomiting, unspecified Additional Impressions: Urinary tract infection Qualified Codes: N30.00 - Acute cystitis without hematuria Pain in the abdomen Qualified Codes: R10.31 - Right lower quadrant pain Disposition: 01 HOME, SELF-CARE Condition: Improved Departure-Patient Inst. Decision time for Depature: 13:30 Referrals: [facility] (PCP/Family) Primary Care Physician Patient Instructions: Acute Abdomen (Belly Pain), Adult (DC) Add. Discharge Instructions: Clear liquid diet for next 12 hours, then progress to bland. If tolerating bland diet, may progress to normal diet. Use Zofran for nausea as needed. May alternate between Tylenol 650 mg and ibuprofen 600 mg every 4 hours for pain. Take all antibiotic as prescribed. Return to emergency department or family care provider abdominal pain increases , vomiting not relieved with Zofran, fever greater than 101 not relieved with Tylenol or ibuprofen or new problems. All discharge instructions reviewed with patient and/or family. Voiced understanding. Scripts Ondansetron (Zofran Odt) 8 Mg Tab.rapdis 8 MG PO Q8H, #6 TAB 0 Refills Prov: LAURI LAZARO 07/19/17 Ciprofloxacin HCl (Cipro) 500 Mg Tablet 500 MG PO BID, #10 TAB 0 Refills Prov: LAURI LAZARO 07/19/17 LAURI LAZARO Jul 19, 2017 11:44
[2017-07-19] MEDS ORDERED: ACETAMINOPHEN 325 MG TABLET/CAPLET (TYLENOL) PO STA (12:13)
[2017-07-19] MEDS ORDERED: cefTRIAXone INJECTION 1,000 MG in NS (IVPB) 50 ML IV ONE (12:15)
--- NOTE | 2017-07-19 12:22 | Diagnostic Imaging Report ---
PROCEDURE: CT abdomen and pelvis with contrast, rule out appendicitis. TECHNIQUE: Multiple contiguous axial images were obtained through the abdomen and pelvis after the administration of intravenous contrast. INDICATION: Right lower quadrant pain and fever. 100 mL of Omnipaque-350 is administered intravenously. FINDINGS: The lung bases demonstrate no significant abnormality. The liver, the gallbladder, the spleen, the pancreas, and the adrenal glands appear unremarkable. The kidneys have symmetric enhancement and contrast excretion. No hydronephrosis. There is diastasis of the recti. A superimposed tiny fat-containing umbilical hernia is also seen. There is no bowel obstruction. No significant free fluid or fluid collection in the abdomen or pelvis is seen. The appendix appears normal. The abdominal aorta is normal in caliber. No para-aortic significantly enlarged lymph node is seen. The uterus and adnexa appear grossly unremarkable. The osseous structures demonstrate vacuum phenomenon and mild degenerative changes in the SI joints. IMPRESSION: Diastasis of the recti and tiny fat-containing umbilical hernia seen. Dictated by: Dictated on workstation # [id number]
[2017-07-19] MEDS ORDERED: CIPR-225 PO (13:41)
[2017-07-19] MEDS ORDERED: ONDA8TAB9 PO (13:41)
[2017-07-19 14:11] VITALS: BP 130/84
== END 2017-07-19 14:11 | disposition home or self-care (01) ==
LOC: EDUNIT# 09:52 → ER 09:54
DX: N39.0 Urinary tract infection, site not specified (principal); J45.909 Unspecified asthma, uncomplicated; Z82.49 Family history of ischemic heart disease and other diseases of the circulatory system; Z87.59 Personal history of other complications of pregnancy, childbirth and the puerperium; Z87.19 Personal history of other diseases of the digestive system
CPT/HCPCS: 36415; 74177; 80053; 81000; 84703; 85025; 87088; 87186

== ENCOUNTER 2017-07-20 22:12 | Emergency (ER) | payer MEDICAID, OTHER ==
[~2017-07-20] VITALS: Ht 170.2 cm; Wt 114.8 kg
[~2017-07-20 22:12] MED LIST changes: +CIPR-225 PO; +ONDA8TAB9 PO
[2017-07-20] MEDS ORDERED: KETOROLAC 30 MG/ML VIAL IM ONE (23:15)
--- NOTE | 2017-07-20 23:18 | ED Lower Extremity ---
General Chief Complaint: Lower Extremity Stated Complaint: RT ANKLE INJ Nursing Triage Note: Patient advises she was walking down carpeted stairs in her home when she slipped and fell down approx. 15 stairs. She advises she hit her head but denies loss of consciousness at the time of the incident. Nursing Sepsis Screen: No Definite Risk Source: patient, other Exam Limitations: no limitations History of Present Illness Time seen by provider: 23:09 Initial Comments Patient presents to ER by private conveyance with chief complaint that she fell down some stairs about 1:30 this afternoon approximately 10 hours ago. She took some Tylenol and put some ice on it but does not help. She is having a hard time walking on that foot it hurts. Little bit of swelling. She does not have any significant medical history other than using Abilify for mood. She has no medical allergies. She has not taken any ibuprofen. She's denies she has not any kind of control. She says she had her last missed her period in March but she did a urine test yesterday that was negative. She's never injured that foot before. Allergies and Home Medications Allergies Coded Allergies: fexofenadine (Verified Allergy, Unknown, 06/01/17) Home Medications Amitriptyline HCl 25 Mg Tablet, (Reported) Ciprofloxacin HCl 500 Mg Tablet, 500 MG PO BID, #10 Ref 0 Prescribed by: LAURI LAZARO on 07/19/17 1341 Ondansetron 8 Mg Tab.rapdis, 8 MG PO Q8H, #6 Ref 0 Prescribed by: LAURI LAZARO on 07/19/17 1341 Sulfamethoxazole/Trimethoprim 1 Each Tablet, 1 EACH PO BID, #13 Ref 0 Prescribed by: DERRICK WALLACE on 06/01/17 1748 Constitutional: No chills, No malaise EENTM: no symptoms reported Respiratory: No cough, No short of breath Cardiovascular: No chest pain, No palpitations Gastrointestinal: No abdominal pain, No nausea Genitourinary: No discharge, No dysuria : No (home UPT yesterday negative) Musculoskeletal: see HPI, joint pain Skin: No pruritus, No rash Past Sxxwkpt-Kalevr-Plgahr Hx Patient Social History Alcohol Use: Denies Use Recreational Drug Use: No Smoking Status: Never a Smoker 2nd Hand Smoke Exposure: Yes Recent Foreign Travel: No Contact w/Someone Who Travel: No Recent Infectious Disease Expo: No Recent Hopitalizations: Yes ( 3 months ago) Physical Abuse: No Sexual Abuse: No Immunizations Up To Date Tetanus Booster (TDap): Less than 5yrs PED Vaccines UTD: No Date of Influenza Vaccine: Aug 20, 2016 Seasonal Allergies Seasonal Allergies: Yes Surgeries History of Surgeries: Yes (HERNIA) Surgeries: Abdominal, Section Respiratory History of Respiratory Disorde: Yes Respiratory Disorders: Asthma Currently Using CPAP: No Currently Using BIPAP: No Cardiovascular History of Cardiac Disorders: No Neurological History of Neurological Disord: Yes Neurological Disorders: Concussion Reproductive System : No Hx Reproductive Disorders: No Female Reproductive Disorders: Denies Genitourinary History of Genitourinary Disor: No Gastrointestinal History of Gastrointestinal Di: No Musculoskeletal History of Musculoskeletal Dis: No Endocrine History of Endocrine Disorders: No HEENT History of HEENT Disorders: No Cancer History of Cancer: No Psychosocial History of Psychiatric Problem: No Suicide Risk Score: 0 Integumentary History of Skin or Integumenta: No Blood Transfusions History of Blood Disorders: Yes (anemia) Adverse Reaction to a Blood Tr: No Family Medical History Significant Family History: No Pertinent Family Hx Family Medial History: Asthma G8 BROTHER Congenital heart disease 19 MOTHER (heart murmur) Psychosocial problem 19 MOTHER Seizure disorder 19 MOTHER No Family History of: AIDS Abdominal aortic aneurysm Mark's disease Alcoholism Alzheimer's disease Aphasia Arthritis Cancer of mouth Cardiovascular disease Cataracts Colon cancer Completed stroke Congenital disease Coronary thrombosis Cystic fibrosis Deafness or hearing loss Dementia Diabetes mellitus Drug abuse Dysphasia Fibrocystic disease of breast Gastroenteritis Glaucoma Headache disorder Hypercholesterolemia Hypertension Infertility Kidney disease Myocardial infarction Neoplasm Osteoporosis Parkinson's disease Prostate cancer Respiratory disorder Severe allergy Tuberculosis Visual disorder Physical Exam Vital Signs Vital Sign - Last 12Hours 07/20/17 22:22 Temp 98.9 Resp 14 B/P (MAP) 120/87 (98) Pulse Ox 98 O2 Delivery Room Air Capillary Refill : Less Than 3 Seconds General Appearance: WD/WN, no apparent distress HEENT: PERRL/EOMI, pharynx normal Hips: bilateral hip non-tender, bilateral hip normal inspection, bilateral hip normal range of motion, bilateral hip no evidence of injury Legs: bilateral leg non-tender, bilateral leg normal inspection, bilateral leg normal range of motion, bilateral leg no evidence of injury Knees: bilateral knee non-tender, bilateral knee normal inspection, bilateral knee normal range of motion, bilateral knee no evidence of injury Ankles: left ankle non-tender, bilateral ankle normal inspection, left ankle normal range of motion, left ankle no evidence of injury, right ankle bone tenderness, right ankle pain, right ankle soft tissue tenderness, right ankle swelling (scant) Feet: bilateral foot non-tender, bilateral foot normal inspection, bilateral foot normal range of motion, bilateral foot no evidence of injury Neurologic/Tendon: normal sensation, normal motor functions, normal tendon functions, responds to pain, no evidence tendon injury Neurologic/Psychiatric: no motor/sensory deficits, alert, oriented x 3 Skin: normal color, warm/dry Progress/Results/Core Measures Results/Orders My Orders Orders - INDER MARTINEZ Ankle, Right, 3 Views (07/20/17 23:13) Ketorolac Injection (Toradol Injection) (07/20/17 23:15) Medications Given in ED Current Medications Medications Dose Ordered Sig/Harjinder Route Start Time Stop Time Status Last Admin Dose Admin Ketorolac Tromethamine 15 mg ONCE ONCE IM 07/20/17 23:15 07/20/17 23:16 DC 07/20/17 23:38 15 MG Vital Signs/I&O Vital Sign - Last 12Hours 07/20/17 22:22 Temp 98.9 Resp 14 B/P (MAP) 120/87 (98) Pulse Ox 98 O2 Delivery Room Air Blood Pressure Mean: 98 Diagnostic Imaging Diagonstic Imaging: Xray Plain Films/CT/US/NM/MRI: ankle (right) Comments No acute osseous abnormality. Reviewed: Reviewed by Me Departure Impression Impression: Primary Impression: Right ankle sprain Qualified Codes: S93.401A - Sprain of unspecified ligament of right ankle, initial encounter Disposition: 01 HOME, SELF-CARE Condition: Stable Departure-Patient Inst. Decision time for Depature: 23:57 Referrals: [facility] (PCP/Family) Primary Care Physician Patient Instructions: Ankle Sprain (DC) Add. Discharge Instructions: Rice therapy. Rest, ice, compression, elevation. Use an Braulio bandage to compress the ankle. Keep off her foot when you don't needed and elevate above the level of your heart. Apply ice for 20 minutes every 4-6 hours. You may use Tylenol 1000 mg every 8 hours and or ibuprofen 800 mg every 8 hours as needed for pain. All discharge instructions reviewed with patient and/or family. Voiced understanding. Copy Copies To 1: MACK FARAH TITUS J Jul 20, 2017 23:18
[2017-07-21 00:03] VITALS: BP 120/87
--- NOTE | 2017-07-21 06:48 | Diagnostic Imaging Report ---
INDICATION: Pain, fall COMPARISON: None available TECHNIQUE: 3 radiographs of the right ankle dated July 20, 2017 FINDINGS: No acute fracture or dislocation. No destructive osseous process. The talar dome is unremarkable. Ankle mortise is symmetric. No suspicious radiopaque foreign body. IMPRESSION: No acute osseous abnormality. Dictated by: Dictated on workstation # [id number]
== END 2017-07-21 00:02 | disposition home or self-care (01) ==
LOC: EDUNIT# 22:12 → ER 22:13
DX: S93.401A Sprain of unspecified ligament of right ankle, initial encounter (principal); J45.909 Unspecified asthma, uncomplicated; Z82.49 Family history of ischemic heart disease and other diseases of the circulatory system; Z77.22 Contact with and (suspected) exposure to environmental tobacco smoke (acute) (chronic); Z87.59 Personal history of other complications of pregnancy, childbirth and the puerperium; Z87.19 Personal history of other diseases of the digestive system; W10.9XXA Fall (on) (from) unspecified stairs and steps, initial encounter
CPT/HCPCS: 73610; 99284

== ENCOUNTER → 2017-09-03 | Outpatient (CLI) | payer MEDICAID ==
[~2017-09-03] MED LIST changes: -HYDR-3812 PO
--- NOTE | 2017-09-03 14:57 | Diagnostic Imaging Report ---
EXAMINATION: Pelvic Ultrasound. INDICATION: Amenorrhea. COMPARISON: There are no previous pelvic ultrasound examinations available for comparison. FINDINGS: The uterus is nongravid and not enlarged measuring 7.3 x 5.2 x 3.8 cm. The endometrial lining is slightly thickened measuring 11 mm (normal 5 mm or less). This finding is nonspecific. Correlation with the patient's menstrual cycle would be recommended. Both ovaries were identified. There are multiple subcentimeter follicles on each ovary. There is no solid pelvic mass or free fluid collection noted. IMPRESSION: 1. There is no evidence for an acute pelvic abnormality. 2. The endometrial lining is slightly thickened, but this finding is nonspecific. Dictated by: Dictated on workstation # [id number]
== END ==
LOC: RAD 13:45
PROVIDERS: ATTEND Nurse Practitioner Family
DX: N91.2 Amenorrhea, unspecified (principal)
CPT/HCPCS: 76830; 76856

== ENCOUNTER 2017-12-05 17:48 | Emergency (ER) | payer SELFPAY ==
[~2017-12-05] VITALS: Ht 170.2 cm; Wt 113.4 kg
[~2017-12-05 17:48] MED LIST changes: +NAPR-915 PO; -NAPR500T4 PO
--- NOTE | 2017-12-05 18:19 | ED General ---
General Chief Complaint: General Problems/Pain Stated Complaint: HAND AND FEET SWELLING Nursing Triage Note: ARRIVED VIA AMB TO ROOM 06. COMPLAINS OF GENERALIZED SWELLING IN FEET AND HANDS ON AND OFF X1 MONTH. STATES MULTIPLE BLOOD TESTS HAVE BEEN RAN BUT WITH NEG RESULTS. Nursing Sepsis Screen: No Definite Risk Source of Information: Patient Exam Limitations: No Limitations History of Present Illness Date Seen by Provider: Dec 05, 2017 Time Seen by Provider: 18:15 Initial Comments The patient presents to ER by private conveyance with a chief complaint she's been experiencing for the past month now some intermittent swelling in either her hand or foot but never both feet are both hand same time. She says the swelling is at the worst that it gets right now and she's been seen in the past by Maria R Mar and had lab and examination done but nothing was revealing. She says her swelling was not occurring at the time she was seen by Maria R Toribio either. She is not having any pain just hurts when she walks on that foot when it swollen. She points to the bottom of her first digit of her left foot as the source of pain because of the swelling. She says it feels tense, warm to the touch. She's having no fevers chills nausea vomiting shortness of breath chest pain abdominal pain and dysuria. Her last menstrual. Commenced one week ago. She is over it now. She has no injury to her arms or feet. No history of gout or arthritis. She has not taken anything for it. She works at a [employer] center where she says she spends about half her time on her feet have her time sitting down. She says she takes BuSpar and his mother anxiety medicines but no other significant medical or surgical history. She says Maria R Toribio's tried her on a couple different medications including Zyrtec for the last 3 weeks she' s been taking it daily and has not made any improvement in her symptoms. The swelling comes and goes and does not seem to have any pattern to it that she can identify. Is not related to her periods, food that she eats, whether she is on her feet, awake or asleep. It happens about every day and lasts for an hour or 2. Allergies and Home Medications Allergies Coded Allergies: fexofenadine (Verified Allergy, Unknown, 06/01/17) Home Medications Ciprofloxacin HCl 500 Mg Tablet, 500 MG PO BID Prescribed by: LAURI LAZARO on 07/19/17 1341 Ondansetron 8 Mg Tab.rapdis, 8 MG PO Q8H Prescribed by: LAURI LAZARO on 07/19/17 1341 Sulfamethoxazole/Trimethoprim 1 Each Tablet, 1 EACH PO BID Prescribed by: DERRICK WALLACE on 06/01/17 1748 Patient Home Medication List Home Medication List Reviewed: Yes Review of Systems Constitutional: No chills, No diaphoresis, No dizziness, No fever, No malaise, No weakness, No weight gain, No weight loss EENTM: No ear pain, No eye pain Respiratory: No cough, No short of breath Cardiovascular: No chest pain, No palpitations, No syncope, No vascular heart diseas Gastrointestinal: No abdominal pain, No constipation, No diarrhea, No nausea Genitourinary: No discharge, No dysuria : No LMP: Nov 28, 2017 Musculoskeletal: No back pain, No joint pain Skin: No change in color, No change in hair/nails, No dryness, No lesions Past Hkidhze-Pcnirc-Ctxtmy Hx Patient Social History Alcohol Use: Denies Use Recreational Drug Use: No Smoking Status: Never a Smoker 2nd Hand Smoke Exposure: Yes Recent Foreign Travel: No Contact w/Someone Who Travel: No Recent Infectious Disease Expo: No Recent Hopitalizations: Yes ( 3 months ago) Immunizations Up To Date Tetanus Booster (TDap): Less than 5yrs PED Vaccines UTD: No Date of Influenza Vaccine: Aug 20, 2016 Seasonal Allergies Seasonal Allergies: Yes Past Medical History Surgeries: Yes (HERNIA) Abdominal, Section Respiratory: Yes Asthma Currently Using CPAP: No Currently Using BIPAP: No Cardiac: No Neurological: Yes Concussion Reproductive Disorders: No Female Reproductive Disorders: Denies Genitourinary: No Gastrointestinal: No Musculoskeletal: No Endocrine: No HEENT: No Cancer: No Psychosocial: No Integumentary: No Blood Disorders: Yes (anemia) Adverse Reaction/Blood Tranf: No Family Medical History Asthma G8 BROTHER Congenital heart disease 19 MOTHER (heart murmur) Psychosocial problem 19 MOTHER Seizure disorder 19 MOTHER No Family History of: AIDS Abdominal aortic aneurysm Bossier's disease Alcoholism Alzheimer's disease Aphasia Arthritis Cancer of mouth Cardiovascular disease Cataracts Colon cancer Completed stroke Congenital disease Coronary thrombosis Cystic fibrosis Deafness or hearing loss Dementia Diabetes mellitus Drug abuse Dysphasia Fibrocystic disease of breast Gastroenteritis Glaucoma Headache disorder Hypercholesterolemia Hypertension Infertility Kidney disease Myocardial infarction Neoplasm Osteoporosis Parkinson's disease Prostate cancer Respiratory disorder Severe allergy Tuberculosis Visual disorder No Pertinent Family Hx Physical Exam Vital Signs Vital Signs - First Documented 12/05/17 17:50 Temp 98.0 Pulse 90 Resp 18 B/P (MAP) 144/94 (111) Pulse Ox 100 O2 Delivery Room Air Capillary Refill : Less Than 3 Seconds General Appearance: No Apparent Distress, WD/WN Eyes: Bilateral Eye Normal Inspection, Bilateral Eye PERRL, Bilateral Eye EOMI HEENT: PERRL/EOMI, TMs Normal, Normal ENT Inspection, Pharynx Normal Neck: Normal Inspection, Supple Respiratory: Chest Non Tender, Lungs Clear, Normal Breath Sounds Cardiovascular: Regular Rate, Rhythm, No JVD, No Murmur, Normal Peripheral Pulses Gastrointestinal: Normal Bowel Sounds, Non Tender, Soft Extremity: Normal Capillary Refill, Normal Range of Motion, Non Tender, No Calf Tenderness, Other (Trace nonpitting edema in bilateral feet; joints are nontender to palpation, no erythema or inflammation or crepitus palpable.) Neurologic/Psychiatric: Alert, Oriented x3 Skin: Normal Color, Warm/Dry Progress/Results/Core Measures Suspected Sepsis Recent Fever Within 48 Hours: No Infection Criteria Present: None New/Unexplained Altered Menta: No Sepsis Screen: No Definite Risk SIRS Temperature:98.0 Pulse: 90 Respiratory Rate: 18 Blood Pressure 144 /94 Mean: 111 Results/Orders Vital Signs/I&O 12/05/17 17:50 Temp 98.0 Pulse 90 Resp 18 B/P (MAP) 144/94 (111) Pulse Ox 100 O2 Delivery Room Air Capillary Refill : Less Than 3 Seconds Blood Pressure Mean: 111 Progress Note : Time: 18:22 Progress Note Reviewed her history and is going on for a month does not appear to be life- threatening. Her vitals are good and she should continue her workup outpatient but it appears this may just be hyper or awareness of her body possibly made worse by her baseline anxiety disorders. Departure Impression Primary Impression: Trace edema Disposition: 01 HOME, SELF-CARE Condition: Stable Departure-Patient Inst. Decision time for Depature: 18:23 Referrals: [facility] (PCP/Family) Primary Care Physician Patient Instructions: Dependent Edema (DC) Add. Discharge Instructions: Your edema is very slight and will possibly be treated just by keeping your limbs elevated when they get swollen. You can also use compression stockings from the pharmacy as needed. Make sure you're eating a healthy diet and discuss this with your primary care provider. All discharge instructions reviewed with patient and/or family. Voiced understanding. Copy Copies To 1: MACK FARAH TITUS J Dec 05, 2017 18:19
[2017-12-05 18:34] VITALS: BP 144/94
[2017-12-28] MEDS ORDERED: BUSP7.5T5 PO (13:17)
[2017-12-28] MEDS ORDERED: ARIP10TA17 PO (13:17)
[2017-12-28] MEDS ORDERED: FERR-84 PO (13:18)
== END 2017-12-05 18:34 | disposition home or self-care (01) ==
LOC: EDUNIT# 17:48 → ER 17:50
DX: R60.0 Localized edema (principal); J45.909 Unspecified asthma, uncomplicated; Z82.49 Family history of ischemic heart disease and other diseases of the circulatory system; Z87.19 Personal history of other diseases of the digestive system; Z88.8 Allergy status to other drugs, medicaments and biological substances; Z77.22 Contact with and (suspected) exposure to environmental tobacco smoke (acute) (chronic); Z87.59 Personal history of other complications of pregnancy, childbirth and the puerperium
CPT/HCPCS: 99281

== ENCOUNTER → 2018-01-12 | Outpatient (CLI) | payer SELFPAY ==
[~2018-01-12] MED LIST changes: +ARIP10TA17 PO; +BUSP7.5T5 PO
[2018-01-12] MEDS: GADOBUTROL 15 MMOL/15 ML (GADAVIST) VIAL IV ONE (09:44)
--- NOTE | 2018-01-12 12:47 | Diagnostic Imaging Report ---
EXAM: MRI BRAIN PITUITARY W/WO CON INDICATION: Pituitary mass. COMPARISON: MRI brain without and with IV contrast 12/28/2017. FINDINGS: Dedicated sequences of the sella demonstrate normal morphology with homogenous enhancement of the pituitary gland. Midline infundibulum. There is no mass within the sellar or suprasellar space. No restricted water diffusion. No hydrocephalus or extra-axial fluid collections. Normal intracranial flow voids. The paranasal sinuses and mastoids are clear. The orbits are unremarkable on this nondedicated exam. IMPRESSION: Negative MRI of the sella. Specifically, the findings on the prior exam should be artifactual. Dictated by: Dictated on workstation # [id number]
== END ==
LOC: RAD 08:01
PROVIDERS: ATTEND Nurse Practitioner Family
DX: E23.6 Other disorders of pituitary gland (principal)
CPT/HCPCS: 70553

== ENCOUNTER 2019-09-29 08:03 | Emergency (ER) | payer MEDICAID ==
[~2019-09-29] VITALS: Ht 170 cm; Wt 121.5 kg
[~2019-09-29 08:03] MED LIST changes: +OMEP-280 PO; -OMEP20CA12 PO
[2019-09-29] MEDS ORDERED: NS IV 1000 ML 1,000 ML IV ONE (08:16)
--- NOTE | 2019-09-29 08:29 | ED GI ---
General Chief Complaint: Abdominal/GI Problems Stated Complaint: RECTAL BLEEDING Nursing Triage Note: PT CO OF ABD PAIN L LOWER ABD. PT STATES HAS HAD DIARRHEA W BLOOD IN IT. STARTED LAST PM HAS HAD BRIGHT RED BLOOD X3 SINCE YESTERDAY. DENIES FEVER Sepsis Screen: No Definite Risk Source of Information: Patient History of Present Illness Date Seen by Provider: Sep 29, 2019 Time Seen by Provider: 08:10 Initial Comments PT ARRIVES VIA POV FROM HOME STATES AROUND 2029 LAST PM, SHE HAD SUDDEN SHARP PAIN TO LUQ AND LEFT MID AND LOWER ABDOMEN, FOLLOWED BY BLOODY DIARRHEA STATES SHE NOW HAS CONTINUED EPIGASTRIC PAIN, AND HAS HAD 2 MORE EPISODES OF BLOODY DIARRHEA THIS AM + NAUSEA, NO VOMITING NO FEVER NO URINARY SYMPTOMS NO HISTORY OF SIMILAR HAD HEMORRHOIDS THAT BLED A LITTLE, BUT NO HISTORY OF BLOODY DIARRHEA OR ANY HISTORY OF GI PROBLEMS LMP END OF JUNE--STATES SHE ONLY HAS A PERIOD EVERY 3 MONTHS, IS NOT ON CONTROL. HAS NOT DONE A HOME TEST. PCP: MELISSA Allergies and Home Medications Allergies Coded Allergies: fexofenadine (Verified Allergy, Unknown, 06/01/17) Home Medications Ciprofloxacin HCl 500 Mg Tablet, 500 MG PO BID Prescribed by: MAMTA GAMBLE on 09/29/19 1035 Hyoscyamine Sulfate 0.125 Mg Tab.subl, 1-2 TAB SL Q4H Prescribed by: MAMTA GAMBLE on 09/29/19 1035 Lactobacillus Acidophilus 1 Each Capsule, 2 EACH PO QID Prescribed by: MAMTA GAMBLE on 09/29/19 1035 Metronidazole 500 Mg Tablet, 500 MG PO QID Prescribed by: MAMTA GAMBLE on 09/29/19 1035 Ondansetron 4 Mg Tab.rapdis, 4 MG PO Q4H Prescribed by: MAMTA GAMBLE on 09/29/19 1035 Patient Home Medication List Home Medication List Reviewed: Yes Review of Systems Review of Systems Constitutional: no symptoms reported; No chills, No dizziness, No fever EENTM: No Symptoms Reported Respiratory: No Symptoms Reported Cardiovascular: No Symptoms Reported Gastrointestinal: See HPI, Abdominal Pain; Denies Constipated; Diarrhea, Nausea; Denies Poor Appetite, Denies Poor Fluid Intake; Rectal Bleeding; Denies Vomiting Genitourinary: No Symptoms Reported Musculoskeletal: no symptoms reported; No back pain Skin: no symptoms reported Psychiatric/Neurological: No Symptoms Reported Endocrine: No Symptoms Reported Hematologic/Lymphatic: No Symptoms Reported; Denies Anemia, Denies Blood Clots, Denies Easy Bleeding, Denies Easy Bruising Past Ndwjqxb-Bccjvs-Qnkxpe Hx Patient Social History Alcohol Use: Rarely Uses Recreational Drug Use: Yes (THC ) Drug of Choice: THC Smoking Status: Never a Smoker 2nd Hand Smoke Exposure: Yes Recent Foreign Travel: No Contact w/Someone Who Travel: No Recent Infectious Disease Expo: No Recent Hopitalizations: No ( 3 months ago) Physical Abuse: No Sexual Abuse: No Immunizations Up To Date Tetanus Booster (TDap): Less than 5yrs PED Vaccines UTD: No Date of Influenza Vaccine: Aug 20, 2016 Seasonal Allergies Seasonal Allergies: Yes Past Medical History Surgeries: Yes ( X 2; PERIUMBILICAL HERNIA REPAIR) Abdominal, Section Respiratory: Yes Asthma Currently Using CPAP: No Currently Using BIPAP: No Cardiac: No Neurological: Yes Concussion Last Menstrual Period: Jul 19, 2019 Reproductive Disorders: Yes (IRREGULAR PERIODS) Female Reproductive Disorders: Menstrual Problems Genitourinary: No Gastrointestinal: Yes (PERIUMBILICAL HERNIA REPAIR) Abdominal Hernia Musculoskeletal: No Endocrine: No HEENT: No Cancer: No Psychosocial: Yes Depression Integumentary: No Blood Disorders: Yes (ANEMIA) Adverse Reaction/Blood Tranf: No Family Medical History Asthma G8 BROTHER Congenital heart disease 19 MOTHER (heart murmur) Psychosocial problem 19 MOTHER Seizure disorder 19 MOTHER No Family History of: AIDS Abdominal aortic aneurysm Mark's disease Alcoholism Alzheimer's disease Aphasia Arthritis Cancer of mouth Cardiovascular disease Cataracts Colon cancer Completed stroke Congenital disease Coronary thrombosis Cystic fibrosis Deafness or hearing loss Dementia Diabetes mellitus Drug abuse Dysphasia Fibrocystic disease of breast Gastroenteritis Glaucoma Headache disorder Hypercholesterolemia Hypertension Infertility Kidney disease Myocardial infarction Neoplasm Osteoporosis Parkinson's disease Prostate cancer Respiratory disorder Severe allergy Tuberculosis Visual disorder No Pertinent Family Hx Physical Exam Vital Signs Vital Signs - First Documented 09/29/19 08:05 Temp 36.9 Pulse 86 Resp 18 B/P (MAP) 143/83 (103) Pulse Ox 99 Capillary Refill : Less Than 3 Seconds Height/Weight/BMI Height: 5'7.00" Weight: 265lbs. 0.0oz. [id number]; 42.00 BMI Method:Stated General Appearance: WD/WN, no apparent distress, other (WALKS UPRIGHT AND MOVES WITHOUT DIFFICULTY. DOES NOT APPEAR TO BE IN ANY DISCOMFORT OR DISTRESS) Respiratory: normal breath sounds, no respiratory distress, no accessory muscle use Cardiovascular: regular rate, rhythm, no murmur Gastrointestinal: normal bowel sounds, soft, no pulsatile mass; No distended, No guarding, No rebound; tenderness (MILD EPIGASTRIC TENDERNESS); No hernia, No mass Extremities: normal inspection, normal capillary refill Back: normal inspection, no CVA tenderness Neurologic/Psychiatric: grounds and nursery specialist II-XII nml as tested, no motor/sensory deficits, alert, normal mood/affect, oriented x 3 Skin: normal color, warm/dry Progress/Results/Core Measures Results/Orders Lab Results Laboratory Tests Test 09/29/19 08:20 09/29/19 08:25 Range/Units Urine Color YELLOW Urine Clarity CLEAR Urine pH 5.5 5-9 Urine Specific [place] >=1.030 1.016-1.022 Urine Protein NEGATIVE NEGATIVE Urine Glucose (UA) NEGATIVE NEGATIVE Urine Ketones TRACE H NEGATIVE Urine Nitrite NEGATIVE NEGATIVE Urine Bilirubin NEGATIVE NEGATIVE Urine Urobilinogen 1.0 < = 1.0 MG/DL Urine Leukocyte Esterase NEGATIVE NEGATIVE Urine RBC (Auto) 1+ H NEGATIVE Urine RBC RARE /HPF Urine WBC 5-10 H /HPF Urine Squamous Epithelial Cells 10-25 H /HPF Urine Crystals NONE /LPF Urine Bacteria MODERATE H /HPF Urine Casts NONE /LPF Urine Mucus SMALL H /LPF Urine Culture Indicated YES Urine Opiates Screen NEGATIVE NEGATIVE Urine Oxycodone Screen NEGATIVE NEGATIVE Urine Methadone Screen NEGATIVE NEGATIVE Urine Propoxyphene Screen NEGATIVE NEGATIVE Urine Barbiturates Screen NEGATIVE NEGATIVE Ur Tricyclic Antidepressants Screen NEGATIVE NEGATIVE Urine Phencyclidine Screen NEGATIVE NEGATIVE Urine Amphetamines Screen NEGATIVE NEGATIVE Urine Methamphetamines Screen NEGATIVE NEGATIVE Urine Benzodiazepines Screen NEGATIVE NEGATIVE Urine Cocaine Screen NEGATIVE NEGATIVE Urine Cannabinoids Screen POSITIVE H NEGATIVE White Blood Count 10.9 4.3-11.0 10^3/uL Red Blood Count 4.72 4.35-5.85 10^6/uL Hemoglobin 12.3 11.5-16.0 G/DL Hematocrit 38 35-52 % Mean Corpuscular Volume 79 L 80-99 FL Mean Corpuscular Hemoglobin 26 25-34 PG Mean Corpuscular Hemoglobin Concent 33 32-36 G/DL Red Cell Distribution Width 15.1 H 10.0-14.5 % Platelet Count 394 130-400 10^3/uL Mean Platelet Volume 9.5 7.4-10.4 FL Neutrophils (%) (Auto) 63 42-75 % Lymphocytes (%) (Auto) 26 12-44 % Monocytes (%) (Auto) 8 0-12 % Eosinophils (%) (Auto) 4 0-10 % Basophils (%) (Auto) 0 0-10 % Neutrophils # (Auto) 6.8 1.8-7.8 X 10^3 Lymphocytes # (Auto) 2.8 1.0-4.0 X 10^3 Monocytes # (Auto) 0.9 0.0-1.0 X 10^3 Eosinophils # (Auto) 0.4 H 0.0-0.3 10^3/uL Basophils # (Auto) 0.0 0.0-0.1 10^3/uL Prothrombin Time 13.6 12.2-14.7 SEC INR Comment 1.0 0.8-1.4 Activated Partial Thromboplast Time 38 H 24-35 SEC Sodium Level 138 135-145 MMOL/L Potassium Level 3.7 3.6-5.0 MMOL/L Chloride Level 107 98-107 MMOL/L Carbon Dioxide Level 22 21-32 MMOL/L Anion Gap 9 5-14 MMOL/L Blood Urea Nitrogen 13 7-18 MG/DL Creatinine 0.82 0.60-1.30 MG/DL Estimat Glomerular Filtration Rate > 60 BUN/Creatinine Ratio 16 Glucose Level 92 70-105 MG/DL Calcium Level 9.3 8.5-10.1 MG/DL Corrected Calcium 9.1 8.5-10.1 MG/DL Total Bilirubin 0.5 0.1-1.0 MG/DL Aspartate Amino Transf (AST/SGOT) 14 5-34 U/L Alanine Aminotransferase (ALT/SGPT) 16 0-55 U/L Alkaline Phosphatase 82 40-136 U/L Total Protein 8.0 6.4-8.2 GM/DL Albumin 4.3 3.2-4.5 GM/DL Amylase Level 27 25-125 U/L Lipase 9 8-78 U/L My Orders Orders - MAMTA GAMBLE DO Ed Iv/Invasive Line Start (09/29/19 08:16) Urine Bedside (09/29/19 08:16) Amylase (09/29/19 08:16) Cbc With Automated Diff (09/29/19 08:16) Comprehensive Metabolic Panel (09/29/19 08:16) Drug Screen Stat (Urine) (09/29/19 08:16) Lipase (09/29/19 08:16) Protime With Inr (09/29/19 08:16) Partial Thromboplastin Time (09/29/19 08:16) Ua Culture If Indicated (09/29/19 08:16) Ed Iv/Invasive Line Start (09/29/19 08:16) Ns Iv 1000 Ml (Sodium Chloride 0.9%) (09/29/19 08:16) Urine Culture (09/29/19 08:20) Ct Abdomen/Pelvis W (09/29/19 09:03) Acute Abd Series (09/29/19 09:03) Iohexol Injection (Omnipaque 350 Mg/Ml 1 (09/29/19 09:30) Received Contrast (Hold Metformin- Contr (09/29/19 09:30) Ns (Ivpb) (Sodium Chloride 0.9% Ivpb Bag (09/29/19 09:30) Medications Given in ED Current Medications Medications Dose Ordered Sig/Harjinder Route Start Time Stop Time Status Last Admin Dose Admin Iohexol 100 ml ONCE ONCE IV 09/29/19 09:30 09/29/19 09:32 DC 09/29/19 10:02 100 ML Sodium Chloride 100 ml ONCE ONCE IV 09/29/19 09:30 09/29/19 09:32 DC 09/29/19 10:02 100 ML Sodium Chloride 1,000 ml @ 0 mls/hr Q0M ONCE IV 09/29/19 08:16 09/29/19 08:17 DC 09/29/19 08:34 1,000 MLS/HR Vital Signs/I&O 09/29/19 08:05 Temp 36.9 Pulse 86 Resp 18 B/P (MAP) 143/83 (103) Pulse Ox 99 Blood Pressure Mean: 103 Progress Progress Note : Progress Note PASSED APPROXIMATELY 10 ML OF BLOOD PER RECTUM DURING ER STAY--NO STOOL PASSED DURING ER STAY. NO OTHER COMPLAINTS DURING ER STAY VITALS STABLE Diagnostic Imaging Comments ACUTE ABDOMEN XRAYS--MODERATE AMOUNT OF STOOL IN COLON, OTHERWISE NO ACUTE PROCESS CT ABDOMEN/PELVIS--MILD MUCOSAL THICKENING OF TRANSVERSE COLON C/W COLITIS PER RADIOLOGIST REPORTS AT 1024 Reviewed: Reviewed by Me Departure Communication (Admissions) 1025--SPOKE WITH DR. BECERRA, SURGEON ELECTROLYSIS INVESTIGATOR. WILL SEE PT IN OFFICE ON SUNDAY Impression Primary Impression: Colitis Additional Impressions: Bloody diarrhea UTI (urinary tract infection) Marijuana use, continuous Disposition: 01 HOME, SELF-CARE Condition: Stable Departure-Patient Inst. Referrals: [facility] [place] Primary Care Physician BAKARI BECERRA DO Patient Instructions: Colitis (DC), Bloody Stools, Adult (DC), Urinary Tract Infection, Adult (DC) Add. Discharge Instructions: CLEAR LIQUIDS--WATER, BROTH, JELLO, GATORADE FOLLOW UP WITH DR. BECERRA ON SUNDAY--CALL TODAY TO SCHEDULE APPOINTMENT TIME. All discharge instructions reviewed with patient and/or family. Voiced understanding. Scripts Hyoscyamine Sulfate (Levsin-Sl) 0.125 Mg Tab.subl 1-2 TAB SL Q4H for Abdominal Pain, #15 TAB Prov: MAMTA GAMBLE K DO 09/29/19 Ondansetron (Ondansetron Odt) 4 Mg Tab.rapdis 4 MG PO Q4H for Nausea/Vomiting, #10 TAB Prov: MAVISMAMTA K DO 09/29/19 Lactobacillus Acidophilus (Acidophilus) 1 Each Capsule 2 EACH PO QID, #80 CAP Prov: MAVISMAMTA K DO 09/29/19 Metronidazole (Flagyl) 500 Mg Tablet 500 MG PO QID for FOR INFECTION, #40 TAB Prov: MAVISMAMTA K DO 09/29/19 Ciprofloxacin HCl (Cipro) 500 Mg Tablet 500 MG PO BID, #20 TAB Prov: MAMTA GAMBLE K DO 09/29/19 MAMTA GAMBLE K Sep 29, 2019 08:28
[2019-09-29 08:41] LABS: BASOPHILS % (AUTO) 0 % (0-10); EOSINOPHILS # (AUTO) 0.4 10^3/uL (0.0-0.3); EOSINOPHILS % (AUTO) 4 % (0-10); HEMATOCRIT 38 % (35-52); HEMOGLOBIN 12.3 G/DL (11.5-16.0); LYMPHOCYTES # (AUTO) 2.8 X 10^3 (1.0-4.0); LYMPHOCYTES % (AUTO) 26 % (12-44); MEAN CORPUSCULAR HEMOGLOBIN 26 PG (25-34); MEAN CORPUSCULAR HGB CONC 33 G/DL (32-36); MEAN CORPUSCULAR VOLUME 79 FL (80-99); MEAN PLATELET VOLUME 9.5 FL (7.4-10.4); MONOCYTES # (AUTO) 0.9 X 10^3 (0.0-1.0); MONOCYTES % (AUTO) 8 % (0-12); NEUTROPHILS # (AUTO) 6.8 X 10^3 (1.8-7.8); NEUTROPHILS % (AUTO) 63 % (42-75); PLATELET COUNT 394 10^3/uL (130-400); RED CELL DISTRIBUTION WIDTH 15.1 % (10.0-14.5); WHITE BLOOD COUNT 10.9 10^3/uL (4.3-11.0)
[2019-09-29 08:43] LABS: BILIRUBIN,URINE NEGATIVE (NEGATIVE); CLARITY,URINE CLEAR; COLOR,URINE YELLOW; GLUCOSE, URINE (UA) NEGATIVE (NEGATIVE); KETONES,URINE TRACE (NEGATIVE); LEUKOCYTE ESTERASE ,URINE NEGATIVE (NEGATIVE); NITRITE,URINE NEGATIVE (NEGATIVE); PH,URINE 5.5 (5-9); PROTEIN,URINE NEGATIVE (NEGATIVE)
[2019-09-29 08:52] LABS: RBC,URINE RARE /HPF
[2019-09-29 08:53] LABS: BACTERIA,URINE MODERATE /HPF
--- NOTE | 2019-09-29 08:54 | NUR ---
PT HAD BM APPROX 10CC BRIGHT RED BLOOD FROM RECTUM. DR GAMBLE NOTIFIED
[2019-09-29 08:56] LABS: AMPHETAMINE SCREEN, URINE NEGATIVE (NEGATIVE); BARBITURATE SCREEN URINE NEGATIVE (NEGATIVE); BENZODIAZEPINES SCREEN URINE NEGATIVE (NEGATIVE); CANNABINOID SCREEN, URINE POSITIVE (NEGATIVE); COCAINE SCREEN URINE NEGATIVE (NEGATIVE); METHADONE STAT NEGATIVE (NEGATIVE); METHAMPHETAMINE SCREEN URINE S NEGATIVE (NEGATIVE); OPIATE SCREEN URINE NEGATIVE (NEGATIVE); OXYCODONE STAT NEGATIVE (NEGATIVE); PROPOXYPHENE STAT NEGATIVE (NEGATIVE); TRICYCLIC ANTIDEPRESSANTS SCRE NEGATIVE (NEGATIVE)
[2019-09-29 09:06] LABS: PROTHROMBIN TIME PATIENT 13.6 SEC (12.2-14.7)
[2019-09-29 09:08] LABS: ALANINE AMINOTRANSFERASE 16 U/L (0-55); ALBUMIN 4.3 GM/DL (3.2-4.5); ALKALINE PHOSPHATASE 82 U/L (40-136); AMYLASE 27 U/L (25-125); BILIRUBIN,TOTAL 0.5 MG/DL (0.1-1.0); BUN/CREATININE RATIO 16; CALCIUM 9.3 MG/DL (8.5-10.1); CARBON DIOXIDE 22 MMOL/L (21-32); CHLORIDE 107 MMOL/L (98-107); CREATININE SERUM 0.82 MG/DL (0.60-1.30); GFR ESTIMATED > 60; GLUCOSE 92 MG/DL (70-105); LIPASE 9 U/L (8-78); POTASSIUM 3.7 MMOL/L (3.6-5.0); SODIUM 138 MMOL/L (135-145)
[2019-09-29] MEDS ORDERED: HOLD METFORMIN - RECEIVED CONTRAST 20 ML VIAL IV SCH (09:30)
[2019-09-29] MEDS ORDERED: IOHEXOL 350 MG/ML 100 ML (OMNIPAQUE 350) VIAL IV ONE (09:30)
[2019-09-29] MEDS ORDERED: NS 100 ML (IVPB) BAG IV ONE (09:30)
--- NOTE | 2019-09-29 09:40 | Diagnostic Imaging Report ---
INDICATION: Rectal bleeding. FINDINGS: The heart size is normal. Lungs are clear. There is no pleural effusion or pneumothorax. Bowel gas pattern is nonspecific. There is no free air. There are no abnormal abdominal calcifications. IMPRESSION: No acute cardiopulmonary abnormality. Nonspecific bowel gas pattern. Dictated by: Dictated on workstation # [id number]
--- NOTE | 2019-09-29 10:21 | Diagnostic Imaging Report ---
PROCEDURE: CT abdomen and pelvis with contrast. TECHNIQUE: Multiple contiguous axial images were obtained through the abdomen and pelvis after administration of intravenous contrast. Auto Exposure Controls were utilized during the CT exam to meet ALARA standards for radiation dose reduction. INDICATION: Rectal bleeding. FINDINGS: The lung bases are clear. The liver is normal in size without focal lesions. The gallbladder is unremarkable. There is no biliary ductal dilatation. The spleen is normal. The pancreas and adrenal glands are unremarkable. The kidneys are normal in appearance. The aorta is nonaneurysmal. The bowel gas pattern is nonspecific. There is some questionable mucosal thickening in the colon, particularly the transverse colon. This may be simply due to incomplete distention although some degree of underlying colitis cannot be excluded. The osseous structures are unremarkable. IMPRESSION: Questionable mucosal thickening of the transverse colon. Again, while this may simply reflect underdistention, the possibility of a mild colitis cannot be excluded. Recommend clinical correlation. No other acute abnormality in the abdomen or pelvis. There is no free air. There is no ascites. There are no focal inflammatory changes. The adnexa are unremarkable. There is no pelvic mass, adenopathy, or free fluid. Dictated by: Dictated on workstation # [id number]
[2019-09-29] MEDS ORDERED: LACT1CAP8 PO (10:35)
[2019-09-29] MEDS ORDERED: HYOS0.1283 SL (10:35)
[2019-09-29] MEDS ORDERED: CIPR-225 PO (10:35)
[2019-09-29] MEDS ORDERED: METR500T PO (10:35)
[2019-09-29] MEDS ORDERED: ONDA4TAB11 PO (10:35)
[2019-09-29 11:29] VITALS: BP 143/83
--- OUTSIDE RECORDS SUMMARY | 2019-10-07 05:24 | XMS REPORT ---
Author Author Jailene RICHTER Organization [facility] [place] Address [address] [place] [address] Care Team Providers Care Candy Spreader Name Role Phone MILY RICHTER Unavailable PROBLEMS Type Condition ICD9-CM Code [id number] Code Onset Dates Condition S tatus SNOMED Code Problem Generalized anxiety disorder F41.1 A ctive 93337234 Problem Iron deficiency anemia secondary to inadequate d ietary iron intake D50.8 Active 908228154 Problem Elevated erythrocyte sedimentation rate R70.0 Active 466913181 Problem Primary insomnia F51.01 Active 397 2004 ALLERGIES No Information ENCOUNTERS Encounter Location Date Diagnosis [facility] [address] [address] Aug, Nausea R11.0 and Gastroenter itis K52.[address] [address] Jul, Visit for TB skin test Z11.[address] [address] Apr, [facility] [place] [address] [address] Mar, Viral upper respiratory trac t infection J06.9 and Morbid obesity E66.[address] [address] Feb, [address] [address] Sep, Fever, unspecified fever cause R50.9 ; S ore throat J02.9 ; Cough R05 ; Influenza A J10.1 and BMI 40.0-44.9, adult Z68.41 [facility] [place] [address] [address] [place] [id number] [address] [place] [address] 15 Sep, 2018 Sore throat J02.9 ; Viral up per respiratory tract infection J06.9 and BMI 40.0-44.9, adult Z68.[address] [address] 04 Jul, 2018 Bacterial conjunctivitis of right eye H1 0.9 and BMI 40.0-44.9, adult Z68.41 [place] [address] [address] 14 Jun, 2018 Viral URI J06.[address] [address] 07 Jun, 2018 Viral upper respiratory infe ction J06.9 ; Acute gastroenteritis K52.9 and BMI 40.0-44.9, adult Z68.[address] [address] 10 May, 2018 Acute conjunctivitis of right eye, unspe cified acute conjunctivitis type H10.31 ; Unspecified mood [affective] disorder F39 ; Generalized anxiety disorder F41.1 and BMI 40.0-44.9, adult Z68.[address] [address] May, [address] [address] Apr, Other specified abnormal findings of blo od chemistry R79.89 [place] [id number] [address] [place] [address] Apr, Sore throat J02.9 ; Diarrhea , unspecified R19.7 and Vomiting, unspecified R11.[address] [address] 11 Apr, 2018 Chronic fatigue R53.82 ; Nausea R11.0 an d Lyme disease A69.[address] [address] Apr, [place] [address] [address] Mar, Generalized anxiety disorder F41.1 ; Uns pecified mood [affective] disorder F39 ; BMI 40.0-44.9, adult Z68.41 and Myalgia M79.1 [facility] [place] [address] [address] Feb, Elevated erythrocyte sedimentation rate R70.0 [place] [address] [address] Feb, Elevated erythrocyte sedimentation rate R70.0 [place] [address] [address] Feb, Unprotected sexual intercourse Z72.51 ; Pain in left knee M25.562 and Pain in joints of right hand M25.541 [place] [address] [address] Feb, Pain in left knee M25.562 and Pain in thor ints of right hand M25.541 [place] [address] [address] Feb, Unspecified mood [affective] disorder F3 9 ; Generalized anxiety disorder F41.1 ; Pain in joints of right hand M25.541 ; Pain in joints of left hand M25.542 ; Pain in right knee M25.561 ; Pain in left knee M25.562 and Morbid (severe) obesity due to excess calories E66.01 [facility] [address] [facility] [id number] [address] [place] [address] Jan, Sore throat J02.9 ; Strep th roat J02.0 ; BMI 40.0-44.9, adult Z68.41 ; Dysuria R30.0 and Acute cystitis with hematuria N30.01 [facility] [place] [address] [address] Jan, [place] [address] [address] December, Abnormal MRI of head R93.0 [place] [address] [address] December, Subcutaneous nodules R22.9 ; Syncope, un specified syncope type R55 ; Abnormal MRI of head R93.0 and Iron deficiency anemia secondary to inadequate dietary iron intake D50.8 [place] [address] [address] December, [place] [address] [address] December, Iron deficiency anemia secondary to inad equate dietary iron intake D50.8 and BMI 40.0-44.9, adult Z68.41 [facility] [place] [address] [address] [facility] [id number] [place] [address] Nov, Gastroenteritis K52.9 [place] [address] [address] Nov, [place] [address] [address] Nov, Bilateral hand swelling M79.89 ; Amenorr hea N91.2 ; Desire for Z31.9 ; Amenorrhea, unspecified N91.2 ; Bilateral swelling of feet M79.89 ; Rash R21 and Iron deficiency anemia, unspecified iron deficiency anemia type D50.9 [place] [address] [address] Nov, Bilateral hand swelling M79.89 ; Bilater al swelling of feet M79.89 and Rash R21 [place] [address] [address] Sep, Desire for Z31.9 and Amenorrhe a N91.2 [facility] [place] [address] [address] [facility] [id number] [address] [place] [address] Aug, Scabies B86 [place] [address] [address] Aug, Amenorrhea, unspecified N91.2 [facility] [place] [address] [address] Aug, Amenorrhea, unspecified N91.2 [place] [address] [address] Aug, Amenorrhea N91.2 and Iron deficiency ane gerson, unspecified iron deficiency anemia type D50.9 [place] [address] [address] Aug, Iron deficiency anemia secondary to inad equate dietary iron intake D50.8 ; Amenorrhea N91.2 ; Generalized anxiety disorder F41.1 ; Unspecified mood [affective] disorder F39 and Nausea R11.0 [facility] IN [facility] [address] [facility] [id number] [address] [place] [address] Jul, Non-intractable vomiting wit h nausea, unspecified vomiting type R11.2 and Pleurisy R09.1 [place] [address] [address] Jul, [place] [address] [address] Jun, Unspecified mood [affective] disorder F3 9 [place] [address] [address] 02 Jun, 2017 Unspecified mood [affective] disorder F3 9 and Generalized anxiety disorder F41.1 [place] [address] [address] May, Bilious vomiting with nausea R11.14 [place] [address] [address] May, Unspecified mood [affective] disorder F3 9 ; Generalized anxiety disorder F41.1 and Iron deficiency anemia, unspecified iron deficiency anemia type D50.9 [place] [address] [address] Apr, Unspecified mood [affective] disorder F3 9 [place] [address] [address] Apr, Iron deficiency anemia, unspecified iron deficiency anemia type D50.9 [facility] [place] [address] [address] Apr, Iron deficiency anemia, unspecified iron deficiency anemia type D50.9 [facility] [place] [address] [address] Apr, Unspecified mood [affective] disorder F3 9 [facility] [place] [address] [address] Apr, Abnormal CBC R79.89 [place] [address] [address] Apr, Abnormal CBC R79.89 [place] [address] [address] Apr, Encounter to establish care with pramod mcgregor tor Z76.89 ; Unspecified mood [affective] disorder F39 and Primary insomnia F51.01 [facility] [place] [address] [address] Mar, Unspecified mood [affective] disorder F3 9 and Generalized anxiety disorder F41.1 [facility] [address] [facility] [id number] [address] [place] [address] Mar, Sore throat J02.9 and Strep pharyngitis J02.0 [facility] [address] [id number] Feb, Dental examination Z01.20 [facility] [address] [id number] Jan, Encounter for dental examination Z01.20 [facility] [place] [address] [address] Nov, Fever, unspecified R50.9 and Acute nasop haryngitis J00 [facility] [place] [address] [address] 18 Sep, 2015 Abdominal pain, acute, right upper quadr ant 789.01 [facility] [place] [address] [address] Sep, [place] [address] [address] Aug, Irritable bowel syndrome with diarrhea K 58.0 [place] [address] [address] Aug, Urinary tract infection, site not specif ied N39.0 and Back pain M54.9 [place] [address] [address] Mar, Abdominal pain, acute, right upper quadr ant 789.01 [place] [address] [address] Mar, [place] [address] [address] Mar, Nausea 787.02 and Abdominal pain, acute, right upper quadrant 789.01 [place] [address] [address] Mar, Nausea 787.02 and Abdominal pain 789.00 [place] [address] [address] Mar, Nausea 787.02 [place] [address] [address] Jan, Amenorrhea 626.0 [place] [address] [address] Jan, Amenorrhea 626.0 and Obesity 278.00 [place] [address] [address] December, Amenorrhea 626.0 and Cough 786.2 [place] [address] [address] Nov, [place] [address] [address] Nov, [facility] [address] [facility] [id number] [place] [address] May, [facility] [address] [facility] [id number] [place] [address] May, [facility] [address] [id number] [place] [address] Mar, [facility] [address] [facility] [id number] [place] [address] Mar, [facility] [address] [facility] [id number] [place] [address] Mar, [facility] [address] [facility] [id number] [place] [address] Mar, [facility] [address] [id number] [place] [address] Mar, [facility] [address] [id number] [place] [address] Mar, [facility] [address] [id number] [place] [address] Mar, [facility] [address] [id number] [place] [address] Mar, [facility] [address] [id number] [place] [address] Mar, [facility] [address] [id number] [place] [address] Mar, [facility] [address] [facility] [id number] [place] [address] Mar, [facility] [address] [id number] [place] [address] Mar, [facility] [address] [id number] [place] [address] Mar, [facility] [address] [id number] [place] [address] Mar, [facility] [address] [id number] [place] [address] Mar, 2013 [facility] [address] [id number] [place] [address] Feb, 2013 [facility] [address] [facility] [id number] [place] [address] Feb, 2013 [facility] [address] [id number] [place] [address] Feb, 2013 [facility] [address] [facility] [id number] [place] [address] Feb, 2013 [facility] [address] [facility] [id number] [place] [address] Feb, 2013 [facility] [address] [id number] [place] [address] Feb, 2013 [facility] [address] [id number] [place] [address] Feb, 2013 [facility] [address] [id number] [place] [address] Feb, 2013 [facility] [address] [facility] [id number] [place] [address] Feb, 2013 [facility] [address] [id number] [place] [address] Feb, 2013 [facility] [address] [id number] [place] [address] Feb, 2013 [facility] [address] [id number] [place] [address] Feb, 2013 [facility] [address] [facility] [id number] [place] [address] Feb, 2013 [facility] [address] [id number] [place] [address] Feb, 2013 [facility] [address] [id number] [place] [address] Feb, 2013 [facility] [address] [id number] [place] [address] Jan, [facility] [address] [facility] [id number] [place] [address] Jan, [facility] [address] [facility] [id number] [place] [address] Jan, [facility] [address] [id number] [place] [address] Jan, [facility] [address] [id number] [place] [address] Jan, [facility] [address] [facility] [id number] [place] [address] Jan, [facility] [address] [id number] [place] [address] Jan, [facility] [address] [id number] [place] [address] Jan, [facility] [address] [id number] [place] [address] Jan, [facility] [address] [id number] [place] [address] Jan, [facility] [address] [id number] [place] [address] Jan, [facility] [address] [id number] [place] [address] Jan, [facility] [address] [id number] [place] [address] Jan, [facility] [address] [id number] [place] [address] December, [facility] [address] [facility] [id number] [place] [address] December, [facility] [address] [id number] [place] [address] December, [facility] [address] [id number] [place] [address] December, [facility] [address] [id number] [place] [address] December, [facility] [address] [facility] [id number] [place] [address] December, [facility] [address] [facility] [id number] [place] [address] December, [facility] [address] [id number] [place] [address] December, [facility] [address] [facility] [id number] [place] [address] December, [facility] [address] [facility] [id number] [place] [address] December, [facility] [address] [id number] [place] [address] December, [facility] [address] [id number] [place] [address] December, [facility] [address] [id number] [place] [address] Nov, [facility] [address] [facility] [id number] [place] [address] Nov, [facility] [address] [id number] [place] [address] Oct, [facility] [address] [id number] [place] [address] Oct, [facility] [address] [id number] [place] [address] Oct, [facility] [address] [facility] [id number] [place] [address] Oct, [facility] [address] [id number] [place] [address] Oct, [facility] [address] [id number] [place] [address] Oct, [facility] [address] [id number] [place] [address] Oct, [facility] [address] [id number] [place] [address] Oct, [facility] [address] [facility] [id number] [place] [address] Oct, [facility] [address] [id number] [place] [address] Oct, [facility] [address] [id number] [place] [address] Oct, [facility] [address] [id number] [place] [address] Oct, [facility] [address] [id number] [place] [address] Oct, [facility] [address] [id number] [place] [address] Oct, [facility] [address] [id number] [place] [address] Oct, [facility] [address] [id number] [place] [address] Oct, [facility] [address] [id number] [place] [address] Oct, [facility] [address] [id number] [place] [address] Sep, [facility] [address] [id number] [place] [address] Sep, [facility] [address] [id number] [place] [address] Sep, [facility] [address] [id number] [place] [address] Jun, [facility] [address] [id number] [place] [address] Jun, [facility] [address] [id number] [place] [address] Jun, [facility] [address] [id number] [place] [address] Jun, [facility] [address] [id number] [place] [address] Jun, [facility] [address] [id number] [place] [address] Jun, [facility] [address] [id number] [place] [address] May, [facility] [address] [id number] [place] [address] May, [facility] [address] [id number] [place] [address] May, [facility] [address] [id number] [place] [address] May, [facility] [address] [id number] [place] [address] May, [facility] [address] [id number] [place] [address] May, [facility] [address] [id number] [place] [address] 26 Sep, 2012 [facility] [address] [id number] [place] [address] 24 Sep2012 [facility] [address] [id number] [place] [address] 23 Sep, 2012 [facility] [address] [id number] [place] [address] 20 Sep, 2012 [facility] [address] [id number] [place] [address] 19 Sep, 2012 [facility] [address] [id number] [place] [address] 17 Sep, 2012 [facility] [address] [id number] [place] [address] 13 Sep, 2012 [facility] [address] [id number] [place] [address] 11 Sep, 2012 [facility] [address] [id number] [place] [address] 09 Apr, 2013 [facility] [address] [id number] [place] [address] 05 Apr, 2013 [facility] [address] [id number] [place] [address] Mar, [facility] [address] [id number] [place] [address] Nov, [facility] [address] [id number] [place] [address] Oct, [facility] [address] [id number] [place] [address] Oct, [facility] [address] [id number] [place] [address] Sep, [facility] [address] [id number] [place] [address] May, [facility] [address] [id number] [place] [address] May, [facility] [address] [id number] [place] [address] May, [facility] [address] [id number] [place] [address] May, [facility] [address] [id number] [place] [address] Apr, [facility] [address] [place] [id number] [place] [address] Apr, [facility] [address] [id number] [place] [address] Mar, [facility] [id number] [place] [address] Feb, [facility] [address] [id number] [place] [address] Jul, [facility] [address] [id number] [place] [address] Jul, [facility] [address] [id number] [place] [address] Jul, [facility] [place] [address] [id number] [place] [address] December, [facility] [place] [address] [id number] [place] [address] December, [facility] [place] [address] [id number] [place] [address] Oct, IMMUNIZATIONS No Known Immunizations SOCIAL HISTORY Never Assessed REASON FOR VISIT PLAN OF CARE VITAL SIGNS Height 68 in 2013-12-03 Weight 243.7 lbs 2013-12-03 Temperature 99.1 degrees Fahrenheit 2013-12-03 Heart Rate 100 bpm 2013-12-03 Respiratory Rate 20 2013-12-03 Blood pressure systolic 120 mmHg 2013-12-03 Blood pressure diastolic 64 mmHg 2013-12-03 MEDICATIONS No Known Medications RESULTS No Results PROCEDURES Procedure Date Ordered Result Body Site URINE-NO MICRO December 03, 2013 INSTRUCTIONS MEDICATIONS ADMINISTERED No Known Medications MEDICAL (GENERAL) HISTORY Type Description Date Medical History anemia Medical History asthma Surgical History section x2 Surgical History hernia repair Hospitalization History surgeries Hospitalization History possible gallbladder problems Hospitalization History ER visit for UTI 09/12/15 Hospitalization History dizziness, blackout 12/28/2017
--- OUTSIDE RECORDS SUMMARY | 2019-10-07 05:25 | XMS REPORT ---
Author Author Jailene RICHTER Organization [facility] Address [address] [place] [address] Care Team Providers Care Scale Mechanic Name Role Phone MILY RICHTER Unavailable PROBLEMS Type Condition ICD9-CM Code XOD12-MV Code Onset Dates Condition S tatus SNOMED Code Problem Generalized anxiety disorder F41.1 A ctive 40578039 Problem Iron deficiency anemia secondary to inadequate d ietary iron intake D50.8 Active 845258359 Problem Elevated erythrocyte sedimentation rate R70.0 Active [id number] Problem Primary insomnia F51.01 Active 397 2004 ALLERGIES No Information ENCOUNTERS Encounter Location Date Diagnosis [facility] [address] [address] Aug, Nausea R11.0 and Gastroenter itis K52.[address] [address] Jul, Visit for TB skin test Z11.[address] [address] Apr, [facility] [address] [address] Mar, Viral upper respiratory trac t infection J06.9 and Morbid obesity E66.[address] [address] Feb, [address] [address] Sep, Fever, unspecified fever cause R50.9 ; S ore throat J02.9 ; Cough R05 ; Influenza A J10.1 and BMI 40.0-44.9, adult Z68.41 [facility] [place] [address] [place] [id number] [address] [place] [address] 15 Sep, 2018 Sore throat J02.9 ; Viral up per respiratory tract infection J06.9 and BMI 40.0-44.9, adult Z68.[address] [address] 04 Jul, 2018 Bacterial conjunctivitis of right eye H1 0.9 and BMI 40.0-44.9, adult Z68.41 [place] [address] [address] 14 Jun, 2018 Viral URI J06.[address] [address] 07 Jun, 2018 Viral upper respiratory infe ction J06.9 ; Acute gastroenteritis K52.9 and BMI 40.0-44.9, adult Z68.[address] [address] 10 May, 2018 Acute conjunctivitis of right eye, unspe cified acute conjunctivitis type H10.31 ; Unspecified mood [affective] disorder F39 ; Generalized anxiety disorder F41.1 and BMI 40.0-44.9, adult Z68.[address] [address] May, [address] [address] Apr, Other specified abnormal findings of blo od chemistry R79.89 [place] [id number] [place] [address] Apr, Sore throat J02.9 ; Diarrhea , unspecified R19.7 and Vomiting, unspecified R11.[address] [address] 11 Apr, 2018 Chronic fatigue R53.82 ; Nausea R11.0 an d Lyme disease A69.[address] [address] Apr, [place] [address] [address] Mar, Generalized anxiety disorder F41.1 ; Uns pecified mood [affective] disorder F39 ; BMI 40.0-44.9, adult Z68.41 and Myalgia M79.1 [facility] [address] [address] Feb, Elevated erythrocyte sedimentation rate R70.0 [place] [address] [address] Feb, Elevated erythrocyte sedimentation rate R70.0 [place] [address] [address] Feb, Unprotected sexual intercourse Z72.51 ; Pain in left knee M25.562 and Pain in joints of right hand M25.541 [place] [address] [address] Feb, Pain in left knee M25.562 and Pain in thor ints of right hand M25.541 [place] [address] [address] Feb, Unspecified mood [affective] disorder F3 9 ; Generalized anxiety disorder F41.1 ; Pain in joints of right hand M25.541 ; Pain in joints of left hand M25.542 ; Pain in right knee M25.561 ; Pain in left knee M25.562 and Morbid (severe) obesity due to excess calories E66.01 [facility] [address] [facility]NOTE 3] [id number] [address] [place] [address] Jan, Sore throat J02.9 ; Strep th roat J02.0 ; BMI 40.0-44.9, adult Z68.41 ; Dysuria R30.0 and Acute cystitis with hematuria N30.01 [facility] [address] [address] Jan, [place] [address] [address] December, Abnormal MRI of head R93.0 [place] [address] [address] December, Subcutaneous nodules R22.9 ; Syncope, un specified syncope type R55 ; Abnormal MRI of head R93.0 and Iron deficiency anemia secondary to inadequate dietary iron intake D50.8 [place] [address] [address] December, [place] [address] [address] December, Iron deficiency anemia secondary to inad equate dietary iron intake D50.8 and BMI 40.0-44.9, adult Z68.41 [facility] [place] [address] [facility]NOTE 3] [id number] [address] [address] Nov, Gastroenteritis K52.9 [place] [address] [address] Nov, [place] [address] [address] Nov, Bilateral hand swelling M79.89 ; Amenorr hea N91.2 ; Desire for Z31.9 ; Amenorrhea, unspecified N91.2 ; Bilateral swelling of feet M79.89 ; Rash R21 and Iron deficiency anemia, unspecified iron deficiency anemia type D50.9 [place] [address] [address] Nov, Bilateral hand swelling M79.89 ; Bilater al swelling of feet M79.89 and Rash R21 [place] [address] [address] Sep, Desire for Z31.9 and Amenorrhe a N91.2 [facility] [place] [address] [facility]NOTE 3] [id number] [address] [place] [address] Aug, Scabies B86 [place] [address] [address] Aug, Amenorrhea, unspecified N91.2 [facility] [address] [address] Aug, Amenorrhea, unspecified N91.2 [place] [address] [address] Aug, Amenorrhea N91.2 and Iron deficiency ane gerson, unspecified iron deficiency anemia type D50.9 [place] [address] [address] Aug, Iron deficiency anemia secondary to inad equate dietary iron intake D50.8 ; Amenorrhea N91.2 ; Generalized anxiety disorder F41.1 ; Unspecified mood [affective] disorder F39 and Nausea R11.0 [facility] [address] [facility]NOTE 3] [id number] [address] [place] [address] Jul, Non-intractable vomiting wit h nausea, unspecified vomiting type R11.2 and Pleurisy R09.1 [place] [address] [address] Jul, [place] [address] [address] Jun, Unspecified mood [affective] disorder F3 9 [place] [address] [address] 02 Jun, 2017 Unspecified mood [affective] disorder F3 9 and Generalized anxiety disorder F41.1 [place] [address] [address] May, Bilious vomiting with nausea R11.14 [place] [address] [address] May, Unspecified mood [affective] disorder F3 9 ; Generalized anxiety disorder F41.1 and Iron deficiency anemia, unspecified iron deficiency anemia type D50.9 [place] [address] [address] Apr, Unspecified mood [affective] disorder F3 9 [place] [address] [address] Apr, Iron deficiency anemia, unspecified iron deficiency anemia type D50.9 [facility] [address] [address] Apr, Iron deficiency anemia, unspecified iron deficiency anemia type D50.9 [facility] [address] [address] Apr, Unspecified mood [affective] disorder F3 9 [facility] [address] [address] Apr, Abnormal CBC R79.89 [place] [address] [address] Apr, Abnormal CBC R79.89 [place] [address] [address] Apr, Encounter to establish care with pramod mcgregor tor Z76.89 ; Unspecified mood [affective] disorder F39 and Primary insomnia F51.01 [facility] [address] [address] Mar, Unspecified mood [affective] disorder F3 9 and Generalized anxiety disorder F41.1 [facility] [address] [facility]NOTE 3] [id number] [address] [place] [address] Mar, Sore throat J02.9 and Strep pharyngitis J02.0 [facility] [address] [id number] Feb, Dental examination Z01.20 [facility] [address] [id number] Jan, Encounter for dental examination Z01.20 [facility] [address] [address] Nov, Fever, unspecified R50.9 and Acute nasop haryngitis J00 [facility] [address] [address] 18 Sep, 2015 Abdominal pain, acute, right upper quadr ant 789.01 [facility] [address] [address] Sep, [place] [address] [address] Aug, Irritable bowel syndrome with diarrhea K 58.0 [place] [address] [address] Aug, Urinary tract infection, site not specif ied N39.0 and Back pain M54.9 [place] [address] [address] Mar, Abdominal pain, acute, right upper quadr ant 789.01 [place] [address] [address] Mar, [place] [address] [address] Mar, Nausea 787.02 and Abdominal pain, acute, right upper quadrant 789.01 [place] [address] [address] Mar, Nausea 787.02 and Abdominal pain 789.00 [place] [address] [address] Mar, Nausea 787.02 [place] [address] [address] Jan, Amenorrhea 626.0 [place] [address] [address] Jan, Amenorrhea 626.0 and Obesity 278.00 [place] [address] [address] December, Amenorrhea 626.0 and Cough 786.2 [place] [address] [address] Nov, [place] [address] [address] Nov, [facility] [address] [facility]NOTE 3] [id number] [facility] [place] [address] May, [facility] [address] [facility]NOTE 3] [id number] [facility] [place] [address] May, [facility] [address] [id number] [facility] [place] [address] Mar, [facility] [address] [facility]NOTE 3] [id number] [facility] [place] [address] Mar, [facility] [address] [facility]NOTE 3] [id number] [facility] [place] [address] Mar, [facility] [address] [facility]NOTE 3] [id number] [facility] [place] [address] Mar, [facility] [address] [id number] [facility] [place] [address] Mar, [facility] [address] [id number] [facility] [place] [address] Mar, [facility] [address] [id number] [facility] [place] [address] Mar, [facility] [address] [id number] [place] [address] Mar, [facility] [address] [id number] [place] [address] Mar, [facility] [address] [id number] [place] [address] Mar, [facility] [address] [facility]NOTE 3] [id number] [place] [address] Mar, [facility] [address] [id number] [place] [address] Mar, [facility] [address] [id number] [place] [address] Mar, [facility] [address] [id number] [place] [address] Mar, [facility] [address] [id number] [place] [address] Mar, 2013 [facility] [address] [id number] [place] [address] Feb, 2013 [facility] [address] [facility]NOTE 3] [id number] [place] [address] Feb, 2013 [facility] [address] [id number] [place] [address] Feb, 2013 [facility] [address] [facility]NOTE 3] [id number] [place] [address] Feb, 2013 [facility] [address] [facility]NOTE 3] [id number] [place] [address] Feb, 2013 [facility] [address] [id number] [place] [address] Feb, 2013 [facility] [address] [id number] [place] [address] Feb, 2013 [facility] [address] [id number] [place] [address] Feb, 2013 [facility] [address] [facility][NOTE 3] [id number] [place] [address] Feb, 2013 [facility] [address] [id number] [place] [address] Feb, 2013 [facility] [address] [id number] [place] [address] Feb, 2013 [facility] [address] [id number] [place] [address] Feb, 2013 [facility] [address] [facility][NOTE 3] [id number] [place] [address] Feb, 2013 [facility] [address] [id number] [place] [address] Feb, 2013 [facility] [address] [id number] [place] [address] Feb, 2013 [facility] [address] [id number] [place] [address] Jan, [facility] [address] [facility][NOTE 3] [id number] [place] [address] Jan, [facility] [address] [facility][NOTE 3] [id number] [place] [address] Jan, [facility] [address] [id number] [place] [address] Jan, [facility] [address] [id number] [place] [address] Jan, [facility] [address] [facility][NOTE 3] [id number] [place] [address] Jan, [facility] [address] [id number] [place] [address] Jan, [facility] [address] [id number] [place] [address] Jan, [facility] [address] [id number] [place] [address] Jan, [facility] [address] [id number] [place] [address] Jan, [facility] [address] [id number] [place] [address] Jan, [facility] [address] [id number] [place] [address] Jan, [facility] [address] [id number] [place] [address] Jan, [facility] [address] [id number] [place] [address] December, [facility] [address] [facility][NOTE 3] [id number] [place] [address] December, [facility] [address] [id number] [place] [address] December, [facility] [address] [id number] [place] [address] December, [facility] [address] [id number] [place] [address] December, [facility] [address] [facility][NOTE 3] [id number] [facility] [place] [address] December, [facility] [address] [facility][NOTE 3] [id number] [facility] [place] [address] December, [facility] [address] [id number] [facility] [place] [address] December, [facility] [address] [facility][NOTE 3] [id number] [facility] [place] [address] December, [facility] [address] [facility][NOTE 3] [id number] [facility] [place] [address] December, [facility] [address] [id number] [place] [address] December, [facility] [address] [id number] [place] [address] December, [facility] [address] [id number] [place] [address] Nov, [facility] [address] [facility][NOTE 3] [id number] [place] [address] Nov, [facility] [address] [id number] [place] [address] Oct, [facility] [address] [id number] [place] [address] Oct, [facility] [address] [id number] [place] [address] Oct, [facility] [address] [facility][NOTE 3] [id number] [facility] [place] [address] Oct, [facility] [address] [id number] [place] [address] Oct, [facility] [address] [id number] [place] [address] Oct, [facility] [address] [id number] [place] [address] Oct, [facility] [address] [id number] [place] [address] Oct, [facility] [address] [facility][NOTE 3] [id number] [place] [address] Oct, [facility] [address] [id number] [place] [address] Oct, [facility] [address] [id number] [place] [address] Oct, [facility] [address] [id number] [place] [address] Oct, [facility] [address] [id number] [place] [address] Oct, [facility] [address] [id number] [place] [address] Oct, [facility] [address] [id number] [place] [address] Oct, [facility] [address] [id number] [place] [address] Oct, [facility] [address] [id number] [place] [address] Oct, [facility] [address] [id number] [place] [address] Sep, [facility] [address] [id number] [place] [address] Sep, [facility] [address] [id number] [place] [address] Sep, [facility] [address] [id number] [place] [address] Jun, [facility] [address] [id number] [place] [address] Jun, [facility] [address] [id number] [place] [address] Jun, [facility] [address] [id number] [place] [address] Jun, [facility] [address] [id number] [place] [address] Jun, [facility] [address] [id number] [place] [address] Jun, [facility] [address] [id number] [place] [address] May, [facility] [address] [id number] [place] [address] May, [facility] [address] [id number] [place] [address] May, [facility] [address] [id number] [place] [address] May, [facility] [address] [id number] [place] [address] May, [facility] [address] [id number] [place] [address] May, [facility] [address] [id number] [place] [address] 26 Sep, 2012 [facility] [address] [id number] [place] [address] 24 Sep2012 [facility] [address] [id number] [place] [address] 23 Sep, 2012 [facility] [address] [id number] [place] [address] 20 Sep, 2012 [facility] [address] [id number] [place] [address] 19 Sep, 2012 [facility] [address] [id number] [place] [address] 17 Sep, 2012 [facility] [address] [id number] [place] [address] 13 Sep, 2012 [facility] [address] [id number] [place] [address] 11 Sep, 2012 [facility] [address] [id number] [place] [address] 09 Apr, 2013 [facility] [address] [id number] [place] [address] 05 Apr, 2013 [facility] [address] [id number] [place] [address] Mar, [facility] [address] [id number] [place] [address] Nov, [facility] [address] [id number] [place] [address] Oct, [facility] [address] [id number] [place] [address] Oct, [facility] [address] [id number] [place] [address] Sep, [facility] [address] [id number] [place] [address] May, [facility] [address] [id number] [place] [address] May, [facility] [address] [id number] [place] [address] May, [facility] [address] [id number] [place] [address] May, [facility] [address] [id number] [place] [address] Apr, [facility] [id number] [place] [address] Apr, [facility] [address] [id number] [place] [address] Mar, [facility] [id number] [place] [address] Feb, [facility] [address] [id number] [place] [address] Jul, [facility] [address] [id number] [place] [address] Jul, [facility] [address] [id number] [place] [address] Jul, [facility] [address] [id number] [place] [address] December, [facility] [address] [id number] [place] [address] December, [facility] [address] [id number] [place] [address] Oct, IMMUNIZATIONS No Known Immunizations SOCIAL HISTORY Never Assessed REASON FOR VISIT PLAN OF CARE VITAL SIGNS MEDICATIONS No Known Medications RESULTS No Results PROCEDURES No Known procedures INSTRUCTIONS MEDICATIONS ADMINISTERED No Known Medications MEDICAL (GENERAL) HISTORY Type Description Date Medical History anemia Medical History asthma Surgical History section x2 Surgical History hernia repair Hospitalization History surgeries Hospitalization History possible gallbladder problems Hospitalization History ER visit for UTI 09/12/15 Hospitalization History dizziness, blackout 12/28/2017
--- OUTSIDE RECORDS SUMMARY | 2019-10-07 05:25 | XMS REPORT ---
Author Author Jailene RICHTER Organization [facility] Address [address] [place] [address] Care Team Providers Care Slinger Sequins Name Role Phone MILY RICHTER Unavailable PROBLEMS Type Condition ICD9-CM Code VDU11-CL Code Onset Dates Condition S tatus SNOMED Code Problem Generalized anxiety disorder F41.1 A ctive 26806058 Problem Iron deficiency anemia secondary to inadequate d ietary iron intake D50.8 Active 077803386 Problem Elevated erythrocyte sedimentation rate R70.0 Active 414895057 Problem Primary insomnia F51.01 Active 397 2004 ALLERGIES No Information ENCOUNTERS Encounter Location Date Diagnosis [facility] [address] [address] Aug, Nausea R11.0 and Gastroenter itis K52.[address] [address] Jul, Visit for TB skin test Z11.[address] [address] Apr, [facility] [place] [address] [address] Mar, Viral upper respiratory trac t infection J06.9 and Morbid obesity E66.[address] [address] Feb, [address] [address] Sep, Fever, unspecified fever cause R50.9 ; S ore throat J02.9 ; Cough R05 ; Influenza A J10.1 and BMI 40.0-44.9, adult Z68.41 [facility] [place] [address] [address] [place] [id number] [address] [place] [address] 15 Sep, 2018 Sore throat J02.9 ; Viral up per respiratory tract infection J06.9 and BMI 40.0-44.9, adult Z68.[address] [address] 04 Jul, 2018 Bacterial conjunctivitis of right eye H1 0.9 and BMI 40.0-44.9, adult Z68.41 [place] [address] [address] 14 Jun, 2018 Viral URI J06.[address] [address] 07 Jun, 2018 Viral upper respiratory infe ction J06.9 ; Acute gastroenteritis K52.9 and BMI 40.0-44.9, adult Z68.[address] [address] 10 May, 2018 Acute conjunctivitis of right eye, unspe cified acute conjunctivitis type H10.31 ; Unspecified mood [affective] disorder F39 ; Generalized anxiety disorder F41.1 and BMI 40.0-44.9, adult Z68.[address] [address] May, [address] [address] Apr, Other specified abnormal findings of blo od chemistry R79.89 [place] [id number] [address] [place] [address] Apr, Sore throat J02.9 ; Diarrhea , unspecified R19.7 and Vomiting, unspecified R11.[address] [address] 11 Apr, 2018 Chronic fatigue R53.82 ; Nausea R11.0 an d Lyme disease A69.[address] [address] Apr, [place] [address] [address] Mar, Generalized anxiety disorder F41.1 ; Uns pecified mood [affective] disorder F39 ; BMI 40.0-44.9, adult Z68.41 and Myalgia M79.1 [facility] [address] [address] Feb, Elevated erythrocyte sedimentation rate R70.0 [place] [address] [address] Feb, Elevated erythrocyte sedimentation rate R70.0 [place] [address] [address] Feb, Unprotected sexual intercourse Z72.51 ; Pain in left knee M25.562 and Pain in joints of right hand M25.541 [place] [address] [address] Feb, Pain in left knee M25.562 and Pain in thor ints of right hand M25.541 [place] [address] [address] Feb, Unspecified mood [affective] disorder F3 9 ; Generalized anxiety disorder F41.1 ; Pain in joints of right hand M25.541 ; Pain in joints of left hand M25.542 ; Pain in right knee M25.561 ; Pain in left knee M25.562 and Morbid (severe) obesity due to excess calories E66.01 [facility] [address] [facility] [id number] [address] [place] [address] Jan, Sore throat J02.9 ; Strep th roat J02.0 ; BMI 40.0-44.9, adult Z68.41 ; Dysuria R30.0 and Acute cystitis with hematuria N30.01 [facility] [address] [address] Jan, [place] [address] [address] December, Abnormal MRI of head R93.0 [place] [address] [address] December, Subcutaneous nodules R22.9 ; Syncope, un specified syncope type R55 ; Abnormal MRI of head R93.0 and Iron deficiency anemia secondary to inadequate dietary iron intake D50.8 [place] [address] [address] December, [place] [address] [address] December, Iron deficiency anemia secondary to inad equate dietary iron intake D50.8 and BMI 40.0-44.9, adult Z68.41 [facility] [place] [address] [facility] [id number] [place] [address] Nov, Gastroenteritis K52.9 [place] [address] [address] Nov, [place] [address] [address] Nov, Bilateral hand swelling M79.89 ; Amenorr hea N91.2 ; Desire for Z31.9 ; Amenorrhea, unspecified N91.2 ; Bilateral swelling of feet M79.89 ; Rash R21 and Iron deficiency anemia, unspecified iron deficiency anemia type D50.9 [place] [address] [address] Nov, Bilateral hand swelling M79.89 ; Bilater al swelling of feet M79.89 and Rash R21 [place] [address] [address] Sep, Desire for Z31.9 and Amenorrhe a N91.2 [facility] IN [place] [address] [facility] [id number] [address] [place] [address] Aug, Scabies B86 [place] [address] [address] Aug, Amenorrhea, unspecified N91.2 [facility] [address] [address] Aug, Amenorrhea, unspecified N91.2 [place] [address] [address] Aug, Amenorrhea N91.2 and Iron deficiency ane gerson, unspecified iron deficiency anemia type D50.9 [place] [address] [address] Aug, Iron deficiency anemia secondary to inad equate dietary iron intake D50.8 ; Amenorrhea N91.2 ; Generalized anxiety disorder F41.1 ; Unspecified mood [affective] disorder F39 and Nausea R11.0 [facility] [address] [facility] [id number] [address] [place] [address] Jul, Non-intractable vomiting wit h nausea, unspecified vomiting type R11.2 and Pleurisy R09.1 [place] [address] [address] Jul, [place] [address] [address] Jun, Unspecified mood [affective] disorder F3 9 [place] [address] [address] 02 Jun, 2017 Unspecified mood [affective] disorder F3 9 and Generalized anxiety disorder F41.1 [place] [address] [address] May, Bilious vomiting with nausea R11.14 [place] [address] [address] May, Unspecified mood [affective] disorder F3 9 ; Generalized anxiety disorder F41.1 and Iron deficiency anemia, unspecified iron deficiency anemia type D50.9 [place] [address] [address] Apr, Unspecified mood [affective] disorder F3 9 [place] [address] [address] Apr, Iron deficiency anemia, unspecified iron deficiency anemia type D50.9 [facility] [address] [address] Apr, Iron deficiency anemia, unspecified iron deficiency anemia type D50.9 [facility] [address] [address] Apr, Unspecified mood [affective] disorder F3 9 [facility] [address] [address] Apr, Abnormal CBC R79.89 [place] [address] [address] Apr, Abnormal CBC R79.89 [place] [address] [address] Apr, Encounter to establish care with pramod mcgregor tor Z76.89 ; Unspecified mood [affective] disorder F39 and Primary insomnia F51.01 [facility] [address] [address] Mar, Unspecified mood [affective] disorder F3 9 and Generalized anxiety disorder F41.1 [facility] [address] [facility] [id number] [address] [place] [address] Mar, Sore throat J02.9 and Strep pharyngitis J02.0 [facility] [address] [id number] Feb, Dental examination Z01.20 [facility] [address] [id number] Jan, Encounter for dental examination Z01.20 [facility] [address] [address] Nov, Fever, unspecified R50.9 and Acute nasop haryngitis J00 [facility] [address] [address] 18 Sep, 2015 Abdominal pain, acute, right upper quadr ant 789.01 [facility] [address] [address] Sep, [place] [address] [address] Aug, Irritable bowel syndrome with diarrhea K 58.0 [place] [address] [address] Aug, Urinary tract infection, site not specif ied N39.0 and Back pain M54.9 [place] [address] [address] Mar, Abdominal pain, acute, right upper quadr ant 789.01 [place] [address] [address] Mar, [place] [address] [address] Mar, Nausea 787.02 and Abdominal pain, acute, right upper quadrant 789.01 [place] [address] [address] Mar, Nausea 787.02 and Abdominal pain 789.00 [place] [address] [address] Mar, Nausea 787.02 [place] [address] [address] Jan, Amenorrhea 626.0 [place] [address] [address] Jan, Amenorrhea 626.0 and Obesity 278.00 [place] [address] [address] December, Amenorrhea 626.0 and Cough 786.2 [place] [address] [address] Nov, [place] [address] [address] Nov, [facility] [address] [facility] [id number] [facility] [place] [address] May, [facility] [address] [facility] [id number] [facility] [place] [address] May, [facility] [address] [id number] [facility] [place] [address] Mar, [facility] [address] [facility] [id number] [facility] [place] [address] Mar, [facility] [address] [facility] [id number] [facility] [place] [address] Mar, [facility] [address] [facility] [id number] [facility] [place] [address] Mar, [facility] [address] [id number] [facility] [place] [address] Mar, [facility] [address] [id number] [facility] [place] [address] Mar, [facility] [address] [id number] [facility] [place] [address] Mar, [facility] [address] [id number] [place] [address] Mar, [facility] [address] [id number] [place] [address] Mar, [facility] [address] [id number] [place] [address] Mar, [facility] [address] [facility] [id number] [place] [address] Mar, [facility] [address] [id number] [place] [address] Mar, [facility] [address] [id number] [place] [address] Mar, [facility] [address] [id number] [place] [address] Mar, [facility] [address] [id number] [place] [address] Mar, 2013 [facility] [address] [id number] [place] [address] Feb, 2013 [facility] [address] [facility] [id number] [place] [address] Feb, 2013 [facility] [address] [id number] [place] [address] Feb, 2013 [facility] [address] [facility] [id number] [place] [address] Feb, 2013 [facility] [address] [facility] [id number] [place] [address] Feb, 2013 [facility] [address] [id number] [place] [address] Feb, 2013 [facility] [address] [id number] [place] [address] Feb, 2013 [facility] [address] [id number] [place] [address] Feb, 2013 [facility] [address] [facility] [id number] [place] [address] Feb, 2013 [facility] [address] [id number] [place] [address] Feb, 2013 [facility] [address] [id number] [place] [address] Feb, 2013 [facility] [address] [id number] [place] [address] Feb, 2013 [facility] [address] [facility] [id number] [place] [address] Feb, 2013 [facility] [address] [id number] [place] [address] Feb, 2013 [facility] [address] [id number] [place] [address] Feb, 2013 [facility] [address] [id number] [place] [address] Jan, [facility] [address] [facility] [id number] [place] [address] Jan, [facility] [address] [facility] [id number] [place] [address] Jan, [facility] [address] [id number] [place] [address] Jan, [facility] [address] [id number] [place] [address] Jan, [facility] [address] [facility] [id number] [place] [address] Jan, [facility] [address] [id number] [place] [address] Jan, [facility] [address] [id number] [place] [address] Jan, [facility] [address] [id number] [place] [address] Jan, [facility] [address] [id number] [place] [address] Jan, [facility] [address] [id number] [place] [address] Jan, [facility] [address] [id number] [place] [address] Jan, [facility] [address] [id number] [place] [address] Jan, [facility] [address] [id number] [place] [address] December, [facility] [address] [facility] [id number] [place] [address] December, [facility] [address] [id number] [place] [address] December, [facility] [address] [id number] [place] [address] December, [facility] [address] [id number] [place] [address] December, [facility] [address] [facility] [id number] [facility] [place] [address] December, [facility] [address] [facility] [id number] [facility] [place] [address] December, [facility] [address] [id number] [facility] [place] [address] December, [facility] [address] [facility] [id number] [facility] [place] [address] December, [facility] [address] [facility] [id number] [facility] [place] [address] December, [facility] [address] [id number] [place] [address] December, [facility] [address] [id number] [place] [address] December, [facility] [address] [id number] [place] [address] Nov, [facility] [address] [facility] [id number] [place] [address] Nov, [facility] [address] [id number] [place] [address] Oct, [facility] [address] [id number] [place] [address] Oct, [facility] [address] [id number] [place] [address] Oct, [facility] [address] [facility] [id number] [facility] [place] [address] Oct, [facility] [address] [id number] [place] [address] Oct, [facility] [address] [id number] [place] [address] Oct, [facility] [address] [id number] [place] [address] Oct, [facility] [address] [id number] [place] [address] Oct, [facility] [address] [facility] [id number] [place] [address] Oct, [facility] [address] [id number] [place] [address] Oct, [facility] [address] [id number] [place] [address] Oct, [facility] [address] [id number] [place] [address] Oct, [facility] [address] [id number] [place] [address] Oct, [facility] [address] [id number] [place] [address] Oct, [facility] [address] [id number] [place] [address] Oct, [facility] [address] [id number] [place] [address] Oct, [facility] [address] [id number] [place] [address] Oct, [facility] [address] [id number] [place] [address] Sep, [facility] [address] [id number] [place] [address] Sep, [facility] [address] [id number] [place] [address] Sep, [facility] [address] [id number] [place] [address] Jun, [facility] [address] [id number] [place] [address] Jun, [facility] [address] [id number] [place] [address] Jun, [facility] [address] [id number] [place] [address] Jun, [facility] [address] [id number] [place] [address] Jun, [facility] [address] [id number] [place] [address] Jun, [facility] [address] [id number] [place] [address] May, [facility] [address] [id number] [place] [address] May, [facility] [address] [id number] [place] [address] May, [facility] [address] [id number] [place] [address] May, [facility] [address] [id number] [place] [address] May, [facility] [address] [id number] [place] [address] May, [facility] [address] [id number] [place] [address] 26 Sep, 2012 [facility] [address] [id number] [place] [address] 24 Sep2012 [facility] [address] [id number] [place] [address] 23 Sep, 2012 [facility] [address] [id number] [place] [address] 20 Sep, 2012 [facility] [address] [id number] [place] [address] 19 Sep, 2012 [facility] [address] [id number] [place] [address] 17 Sep, 2012 [facility] [address] [id number] [place] [address] 13 Sep, 2012 [facility] [address] [id number] [place] [address] 11 Sep, 2012 [facility] [address] [id number] [place] [address] 09 Apr, 2013 [facility] [address] [id number] [place] [address] 05 Apr, 2013 [facility] [address] [id number] [place] [address] Mar, [facility] [address] [id number] [place] [address] Nov, [facility] [address] [id number] [place] [address] Oct, [facility] [address] [id number] [place] [address] Oct, [facility] [address] [id number] [place] [address] Sep, [facility] [address] [id number] [place] [address] May, [facility] [address] [id number] [place] [address] May, [facility] [address] [id number] [place] [address] May, [facility] [address] [id number] [place] [address] May, [facility] [address] [id number] [place] [address] Apr, [facility] [id number] [place] [address] Apr, [facility] [address] [id number] [place] [address] Mar, [facility] [id number] [place] [address] Feb, [facility] [address] [id number] [place] [address] Jul, [facility] [address] [id number] [place] [address] Jul, [facility] [address] [id number] [place] [address] Jul, [facility] [address] [id number] [place] [address] December, [facility] [address] [id number] [place] [address] December, [facility] [address] [id number] [place] [address] Oct, IMMUNIZATIONS No Known Immunizations SOCIAL HISTORY Never Assessed REASON FOR VISIT PLAN OF CARE VITAL SIGNS Height 68 in 2014-01-14 Weight 251.3 lbs 2014-01-14 Temperature 98.1 degrees Fahrenheit 2014-01-14 Blood pressure systolic 120 mmHg 2014-01-14 Blood pressure diastolic 78 mmHg 2014-01-14 MEDICATIONS No Known Medications RESULTS No Results PROCEDURES Procedure Date Ordered Result Body Site GLUCOSE TEST January 14, 2014 VENIPUNCT, ROUTINE* January 14, 2014 URINE-NO MICRO January 14, 2014 INSTRUCTIONS MEDICATIONS ADMINISTERED No Known Medications MEDICAL (GENERAL) HISTORY Type Description Date Medical History anemia Medical History asthma Surgical History section x2 Surgical History hernia repair Hospitalization History surgeries Hospitalization History possible gallbladder problems Hospitalization History ER visit for UTI 09/12/15 Hospitalization History dizziness, blackout 12/28/2017
--- OUTSIDE RECORDS SUMMARY | 2019-10-07 05:25 | XMS REPORT ---
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 Name Role Phone MILY RICHTER Unavailable PROBLEMS Type Condition ICD9-CM Code RIA95-IH Code Onset Dates Condition S tatus SNOMED Code Problem Generalized anxiety disorder F41.1 A ctive 13248536 Problem Iron deficiency anemia secondary to inadequate d ietary iron intake D50.8 Active 317535575 Problem Elevated erythrocyte sedimentation rate R70.0 Active 799820009 Problem Primary insomnia F51.01 Active 397 2004 ALLERGIES No Information ENCOUNTERS Encounter Location Date Diagnosis [facility] [address] [address] Aug, Nausea R11.0 and Gastroenter itis K52.[address] [address] Jul, Visit for TB skin test Z11.[address] [address] Apr, [facility] [place] [address] [address] Mar, Viral upper respiratory trac t infection J06.9 and Morbid obesity E66.[address] [address] Feb, [address] [address] Sep, Fever, unspecified fever cause R50.9 ; S ore throat J02.9 ; Cough R05 ; Influenza A J10.1 and BMI 40.0-44.9, adult Z68.41 [facility] [place] [address] [place] [id number] [address] [place] [address] 15 Sep, 2018 Sore throat J02.9 ; Viral up per respiratory tract infection J06.9 and BMI 40.0-44.9, adult Z68.[address] [address] 04 Jul, 2018 Bacterial conjunctivitis of right eye H1 0.9 and BMI 40.0-44.9, adult Z68.41 [place] [address] [address] 14 Jun, 2018 Viral URI J06.[address] [address] 07 Jun, 2018 Viral upper respiratory infe ction J06.9 ; Acute gastroenteritis K52.9 and BMI 40.0-44.9, adult Z68.[address] [address] 10 May, 2018 Acute conjunctivitis of right eye, unspe cified acute conjunctivitis type H10.31 ; Unspecified mood [affective] disorder F39 ; Generalized anxiety disorder F41.1 and BMI 40.0-44.9, adult Z68.[address] [address] May, [address] [address] Apr, Other specified abnormal findings of blo od chemistry R79.89 [place] [id number] [address] [place] [address] Apr, Sore throat J02.9 ; Diarrhea , unspecified R19.7 and Vomiting, unspecified R11.[address] [address] 11 Apr, 2018 Chronic fatigue R53.82 ; Nausea R11.0 an d Lyme disease A69.[address] [address] Apr, [place] [address] [address] Mar, Generalized anxiety disorder F41.1 ; Uns pecified mood [affective] disorder F39 ; BMI 40.0-44.9, adult Z68.41 and Myalgia M79.1 [facility] [address] [address] Feb, Elevated erythrocyte sedimentation rate R70.0 [place] [address] [address] Feb, Elevated erythrocyte sedimentation rate R70.0 [place] [address] [address] Feb, Unprotected sexual intercourse Z72.51 ; Pain in left knee M25.562 and Pain in joints of right hand M25.541 [place] [address] [address] Feb, Pain in left knee M25.562 and Pain in thor ints of right hand M25.541 [place] [address] [address] Feb, Unspecified mood [affective] disorder F3 9 ; Generalized anxiety disorder F41.1 ; Pain in joints of right hand M25.541 ; Pain in joints of left hand M25.542 ; Pain in right knee M25.561 ; Pain in left knee M25.562 and Morbid (severe) obesity due to excess calories E66.01 [facility] [address] [facility] [id number] [address] [place] [address] Jan, Sore throat J02.9 ; Strep th roat J02.0 ; BMI 40.0-44.9, adult Z68.41 ; Dysuria R30.0 and Acute cystitis with hematuria N30.01 [facility] [address] [address] Jan, [place] [address] [address] December, Abnormal MRI of head R93.0 [place] [address] [address] December, Subcutaneous nodules R22.9 ; Syncope, un specified syncope type R55 ; Abnormal MRI of head R93.0 and Iron deficiency anemia secondary to inadequate dietary iron intake D50.8 [place] [address] [address] December, [place] [address] [address] December, Iron deficiency anemia secondary to inad equate dietary iron intake D50.8 and BMI 40.0-44.9, adult Z68.41 [facility] [place] [address] [facility] [id number] [address] [address] Nov, Gastroenteritis K52.9 [place] [address] [address] Nov, [place] [address] [address] Nov, Bilateral hand swelling M79.89 ; Amenorr hea N91.2 ; Desire for Z31.9 ; Amenorrhea, unspecified N91.2 ; Bilateral swelling of feet M79.89 ; Rash R21 and Iron deficiency anemia, unspecified iron deficiency anemia type D50.9 [place] [address] [address] Nov, Bilateral hand swelling M79.89 ; Bilater al swelling of feet M79.89 and Rash R21 [place] [address] [address] Sep, Desire for Z31.9 and Amenorrhe a N91.2 [facility] [place] [address] [facility] [id number] [address] [place] [address] Aug, Scabies B86 [place] [address] [address] Aug, Amenorrhea, unspecified N91.2 [facility] [address] [address] Aug, Amenorrhea, unspecified N91.2 [place] [address] [address] Aug, Amenorrhea N91.2 and Iron deficiency ane gerson, unspecified iron deficiency anemia type D50.9 [place] [address] [address] Aug, Iron deficiency anemia secondary to inad equate dietary iron intake D50.8 ; Amenorrhea N91.2 ; Generalized anxiety disorder F41.1 ; Unspecified mood [affective] disorder F39 and Nausea R11.0 [facility] [address] [facility] [id number] [address] [place] [address] Jul, Non-intractable vomiting wit h nausea, unspecified vomiting type R11.2 and Pleurisy R09.1 [place] [address] [address] Jul, [place] [address] [address] Jun, Unspecified mood [affective] disorder F3 9 [place] [address] [address] 02 Jun, 2017 Unspecified mood [affective] disorder F3 9 and Generalized anxiety disorder F41.1 [place] [address] [address] May, Bilious vomiting with nausea R11.14 [place] [address] [address] May, Unspecified mood [affective] disorder F3 9 ; Generalized anxiety disorder F41.1 and Iron deficiency anemia, unspecified iron deficiency anemia type D50.9 [place] [address] [address] Apr, Unspecified mood [affective] disorder F3 9 [place] [address] [address] Apr, Iron deficiency anemia, unspecified iron deficiency anemia type D50.9 [facility] [address] [address] Apr, Iron deficiency anemia, unspecified iron deficiency anemia type D50.9 [facility] [address] [address] Apr, Unspecified mood [affective] disorder F3 9 [facility] [address] [address] Apr, Abnormal CBC R79.89 [place] [address] [address] Apr, Abnormal CBC R79.89 [place] [address] [address] Apr, Encounter to establish care with pramod mcgregor tor Z76.89 ; Unspecified mood [affective] disorder F39 and Primary insomnia F51.01 [facility] [address] [address] Mar, Unspecified mood [affective] disorder F3 9 and Generalized anxiety disorder F41.1 [facility] [address] [facility] [id number] [address] [place] [address] Mar, Sore throat J02.9 and Strep pharyngitis J02.0 [facility] [address] [id number] Feb, Dental examination Z01.20 [facility] [address] [id number] Jan, Encounter for dental examination Z01.20 [facility] [address] [address] Nov, Fever, unspecified R50.9 and Acute nasop haryngitis J00 [facility] [address] [address] 18 Sep, 2015 Abdominal pain, acute, right upper quadr ant 789.01 [facility] [address] [address] Sep, [place] [address] [address] Aug, Irritable bowel syndrome with diarrhea K 58.0 [place] [address] [address] Aug, Urinary tract infection, site not specif ied N39.0 and Back pain M54.9 [place] [address] [address] Mar, Abdominal pain, acute, right upper quadr ant 789.01 [place] [address] [address] Mar, [place] [address] [address] Mar, Nausea 787.02 and Abdominal pain, acute, right upper quadrant 789.01 [place] [address] [address] Mar, Nausea 787.02 and Abdominal pain 789.00 [place] [address] [address] Mar, Nausea 787.02 [place] [address] [address] Jan, Amenorrhea 626.0 [place] [address] [address] Jan, Amenorrhea 626.0 and Obesity 278.00 [place] [address] [address] December, Amenorrhea 626.0 and Cough 786.2 [place] [address] [address] Nov, [place] [address] [address] Nov, [facility] [address] [facility] [id number] [place] [address] May, [facility] [address] [facility] [id number] [place] [address] May, [facility] [address] [id number] [place] [address] Mar, [facility] [address] [facility] [id number] [place] [address] Mar, [facility] [address] [facility] [id number] [place] [address] Mar, [facility] [address] [facility] [id number] [place] [address] Mar, [facility] [address] [id number] [place] [address] Mar, [facility] [address] [id number] [place] [address] Mar, [facility] [address] [id number] [place] [address] Mar, [facility] [address] [id number] [place] [address] Mar, [facility] [address] [id number] [place] [address] Mar, [facility] [address] [id number] [place] [address] Mar, [facility] [address] [facility] [id number] [place] [address] Mar, [facility] [address] [id number] [place] [address] Mar, [facility] [address] [id number] [place] [address] Mar, [facility] [address] [id number] [place] [address] Mar, [facility] [address] [id number] [place] [address] Mar, 2013 [facility] [address] [id number] [place] [address] Feb, 2013 [facility] [address] [facility] [id number] [place] [address] Feb, 2013 [facility] [address] [id number] [place] [address] Feb, 2013 [facility] [address] [facility] [id number] [place] [address] Feb, 2013 [facility] [address] [facility] [id number] [place] [address] Feb, 2013 [facility] [address] [id number] [place] [address] Feb, 2013 [facility] [address] [id number] [place] [address] Feb, 2013 [facility] [address] [id number] [place] [address] Feb, 2013 [facility] [address] [facility] [id number] [place] [address] Feb, 2013 [facility] [address] [id number] [place] [address] Feb, 2013 [facility] [address] [id number] [place] [address] Feb, 2013 [facility] [address] [id number] [place] [address] Feb, 2013 [facility] [address] [facility] [id number] [place] [address] Feb, 2013 [facility] [address] [id number] [place] [address] Feb, 2013 [facility] [address] [id number] [place] [address] Feb, 2013 [facility] [address] [id number] [place] [address] Jan, [facility] [address] [facility] [id number] [place] [address] Jan, [facility] [address] [facility] [id number] [place] [address] Jan, [facility] [address] [id number] [place] [address] Jan, [facility] [address] [id number] [place] [address] Jan, [facility] [address] [facility] [id number] [place] [address] Jan, [facility] [address] [id number] [place] [address] Jan, [facility] [address] [id number] [place] [address] Jan, [facility] [address] [id number] [place] [address] Jan, [facility] [address] [id number] [place] [address] Jan, [facility] [address] [id number] [place] [address] Jan, [facility] [address] [id number] [place] [address] Jan, [facility] [address] [id number] [place] [address] Jan, [facility] [address] [id number] [place] [address] December, [facility] [address] [facility] [id number] [place] [address] December, [facility] [address] [id number] [place] [address] December, [facility] [address] [id number] [place] [address] December, [facility] [address] [id number] [place] [address] December, [facility] [address] [facility] [id number] [place] [address] December, [facility] [address] [facility] [id number] [place] [address] December, [facility] [address] [id number] [place] [address] December, [facility] [address] [facility] [id number] [place] [address] December, [facility] [address] [facility] [id number] [place] [address] December, [facility] [address] [id number] [place] [address] December, [facility] [address] [id number] [place] [address] December, [facility] [address] [id number] [place] [address] Nov, [facility] [address] [facility] [id number] [place] [address] Nov, [facility] [address] [id number] [place] [address] Oct, [facility] [address] [id number] [place] [address] Oct, [facility] [address] [id number] [place] [address] Oct, [facility] [address] [facility] [id number] [place] [address] Oct, [facility] [address] [id number] [place] [address] Oct, [facility] [address] [id number] [place] [address] Oct, [facility] [address] [id number] [place] [address] Oct, [facility] [address] [id number] [place] [address] Oct, [facility] [address] [facility] [id number] [place] [address] Oct, [facility] [address] [id number] [place] [address] Oct, [facility] [address] [id number] [place] [address] Oct, [facility] [address] [id number] [place] [address] Oct, [facility] [address] [id number] [place] [address] Oct, [facility] [address] [id number] [place] [address] Oct, [facility] [address] [id number] [place] [address] Oct, [facility] [address] [id number] [place] [address] Oct, [facility] [address] [id number] [place] [address] Oct, [facility] [address] [id number] [place] [address] Sep, [facility] [address] [id number] [place] [address] Sep, [facility] [address] [id number] [place] [address] Sep, [facility] [address] [id number] [place] [address] Jun, [facility] [address] [id number] [place] [address] Jun, [facility] [address] [id number] [place] [address] Jun, [facility] [address] [id number] [place] [address] Jun, [facility] [address] [id number] [place] [address] Jun, [facility] [address] [id number] [place] [address] Jun, [facility] [address] [id number] [place] [address] May, [facility] [address] [id number] [place] [address] May, [facility] [address] [id number] [place] [address] May, [facility] [address] [id number] [place] [address] May, [facility] [address] [id number] [place] [address] May, [facility] [address] [id number] [place] [address] May, [facility] [address] [id number] [place] [address] 26 Sep, 2012 [facility] [address] [id number] [place] [address] 24 Sep2012 [facility] [address] [id number] [place] [address] 23 Sep, 2012 [facility] [address] [id number] [place] [address] 20 Sep, 2012 [facility] [address] [id number] [place] [address] 19 Sep, 2012 [facility] [address] [id number] [place] [address] 17 Sep, 2012 [facility] [address] [id number] [place] [address] 13 Sep, 2012 [facility] [address] [id number] [place] [address] 11 Sep, 2012 [facility] [address] [id number] [place] [address] 09 Apr, 2013 [facility] [address] [id number] [place] [address] 05 Apr, 2013 [facility] [address] [id number] [place] [address] Mar, [facility] [address] [id number] [place] [address] Nov, [facility] [address] [id number] [place] [address] Oct, [facility] [address] [id number] [place] [address] Oct, [facility] [address] [id number] [place] [address] Sep, [facility] [address] [id number] [place] [address] May, [facility] [address] [id number] [place] [address] May, [facility] [address] [id number] [place] [address] May, [facility] [address] [id number] [place] [address] May, [facility] [address] [id number] [place] [address] Apr, [facility] [id number] [place] [address] Apr, [facility] [address] [id number] [place] [address] Mar, [facility] [id number] [place] [address] Feb, [facility] [address] [id number] [place] [address] Jul, [facility] [address] [id number] [place] [address] Jul, [facility] [address] [id number] [place] [address] Jul, [facility] [address] [id number] [place] [address] December, [facility] [address] [id number] [place] [address] December, [facility] [address] [id number] [place] [address] Oct, IMMUNIZATIONS No Known Immunizations SOCIAL HISTORY [...]
--- OUTSIDE RECORDS SUMMARY | 2019-10-07 05:25 | XMS REPORT ---
Author Author Jailene RICHTER Organization [facility] Address [address] [place] [address] Care Team Providers Care Steel Buffer Name Role Phone MILY RICHTER Unavailable PROBLEMS Type Condition ICD9-CM Code XRT50-YW Code Onset Dates Condition S tatus SNOMED Code Problem Generalized anxiety disorder F41.1 A ctive 26011419 Problem Iron deficiency anemia secondary to inadequate d ietary iron intake D50.8 Active 705283362 Problem Elevated erythrocyte sedimentation rate R70.0 Active 862799752 Problem Primary insomnia F51.01 Active 397 2004 ALLERGIES No Information ENCOUNTERS Encounter Location Date Diagnosis [facility] [address] [address] Aug, Nausea R11.0 and Gastroenter itis K52.[address] [address] Jul, Visit for TB skin test Z11.[address] [address] Apr, [facility] [place] [address] [address] Mar, Viral upper respiratory trac t infection J06.9 and Morbid obesity E66.[address] [address] Feb, [address] [address] Sep, Fever, unspecified fever cause R50.9 ; S ore throat J02.9 ; Cough R05 ; Influenza A J10.1 and BMI 40.0-44.9, adult Z68.41 [facility] [place] [address] [address] [place] [id number] [address] [place] [address] 15 Sep, 2018 Sore throat J02.9 ; Viral up per respiratory tract infection J06.9 and BMI 40.0-44.9, adult Z68.[address] [address] 04 Jul, 2018 Bacterial conjunctivitis of right eye H1 0.9 and BMI 40.0-44.9, adult Z68.41 [place] [address] [address] 14 Jun, 2018 Viral URI J06.[address] [address] 07 Jun, 2018 Viral upper respiratory infe ction J06.9 ; Acute gastroenteritis K52.9 and BMI 40.0-44.9, adult Z68.[address] [address] 10 May, 2018 Acute conjunctivitis of right eye, unspe cified acute conjunctivitis type H10.31 ; Unspecified mood [affective] disorder F39 ; Generalized anxiety disorder F41.1 and BMI 40.0-44.9, adult Z68.[address] [address] May, [address] [address] Apr, Other specified abnormal findings of blo od chemistry R79.89 [place] [id number] [place] [address] Apr, Sore throat J02.9 ; Diarrhea , unspecified R19.7 and Vomiting, unspecified R11.[address] [address] 11 Apr, 2018 Chronic fatigue R53.82 ; Nausea R11.0 an d Lyme disease A69.[address] [address] Apr, [place] [address] [address] Mar, Generalized anxiety disorder F41.1 ; Uns pecified mood [affective] disorder F39 ; BMI 40.0-44.9, adult Z68.41 and Myalgia M79.1 [facility] [address] [address] Feb, Elevated erythrocyte sedimentation rate R70.0 [place] [address] [address] Feb, Elevated erythrocyte sedimentation rate R70.0 [place] [address] [address] Feb, Unprotected sexual intercourse Z72.51 ; Pain in left knee M25.562 and Pain in joints of right hand M25.541 [place] [address] [address] Feb, Pain in left knee M25.562 and Pain in thor ints of right hand M25.541 [place] [address] [address] Feb, Unspecified mood [affective] disorder F3 9 ; Generalized anxiety disorder F41.1 ; Pain in joints of right hand M25.541 ; Pain in joints of left hand M25.542 ; Pain in right knee M25.561 ; Pain in left knee M25.562 and Morbid (severe) obesity due to excess calories E66.01 [facility] [address] [facility] [id number] [address] [place] [address] Jan, Sore throat J02.9 ; Strep th roat J02.0 ; BMI 40.0-44.9, adult Z68.41 ; Dysuria R30.0 and Acute cystitis with hematuria N30.01 [facility] [address] [address] Jan, [place] [address] [address] December, Abnormal MRI of head R93.0 [place] [address] [address] December, Subcutaneous nodules R22.9 ; Syncope, un specified syncope type R55 ; Abnormal MRI of head R93.0 and Iron deficiency anemia secondary to inadequate dietary iron intake D50.8 [place] [address] [address] December, [place] [address] [address] December, Iron deficiency anemia secondary to inad equate dietary iron intake D50.8 and BMI 40.0-44.9, adult Z68.41 [facility] IN [place] [address] [facility] [id number] [address] [address] Nov, Gastroenteritis K52.9 [place] [address] [address] Nov, [place] [address] [address] Nov, Bilateral hand swelling M79.89 ; Amenorr hea N91.2 ; Desire for Z31.9 ; Amenorrhea, unspecified N91.2 ; Bilateral swelling of feet M79.89 ; Rash R21 and Iron deficiency anemia, unspecified iron deficiency anemia type D50.9 [place] [address] [address] Nov, Bilateral hand swelling M79.89 ; Bilater al swelling of feet M79.89 and Rash R21 [place] [address] [address] Sep, Desire for Z31.9 and Amenorrhe a N91.2 [facility] IN [place] [address] [facility] [id number] [address] [place] [address] Aug, Scabies B86 [place] [address] [address] Aug, Amenorrhea, unspecified N91.2 [facility] [address] [address] Aug, Amenorrhea, unspecified N91.2 [place] [address] [address] Aug, Amenorrhea N91.2 and Iron deficiency ane gerson, unspecified iron deficiency anemia type D50.9 [place] [address] [address] Aug, Iron deficiency anemia secondary to inad equate dietary iron intake D50.8 ; Amenorrhea N91.2 ; Generalized anxiety disorder F41.1 ; Unspecified mood [affective] disorder F39 and Nausea R11.0 [facility] IN [facility] [address] [facility] [id number] [address] [place] [address] Jul, Non-intractable vomiting wit h nausea, unspecified vomiting type R11.2 and Pleurisy R09.1 [place] [address] [address] Jul, [place] [address] [address] Jun, Unspecified mood [affective] disorder F3 9 [place] [address] [address] 02 Jun, 2017 Unspecified mood [affective] disorder F3 9 and Generalized anxiety disorder F41.1 [place] [address] [address] May, Bilious vomiting with nausea R11.14 [place] [address] [address] May, Unspecified mood [affective] disorder F3 9 ; Generalized anxiety disorder F41.1 and Iron deficiency anemia, unspecified iron deficiency anemia type D50.9 [place] [address] [address] Apr, Unspecified mood [affective] disorder F3 9 [place] [address] [address] Apr, Iron deficiency anemia, unspecified iron deficiency anemia type D50.9 [facility] [address] [address] Apr, Iron deficiency anemia, unspecified iron deficiency anemia type D50.9 [facility] [address] [address] Apr, Unspecified mood [affective] disorder F3 9 [facility] [address] [address] Apr, Abnormal CBC R79.89 [place] [address] [address] Apr, Abnormal CBC R79.89 [place] [address] [address] Apr, Encounter to establish care with pramod mcgregor tor Z76.89 ; Unspecified mood [affective] disorder F39 and Primary insomnia F51.01 [facility] [address] [address] Mar, Unspecified mood [affective] disorder F3 9 and Generalized anxiety disorder F41.1 [facility] [address] [facility] [id number] [address] [place] [address] Mar, Sore throat J02.9 and Strep pharyngitis J02.0 [facility] [address] [id number] Feb, Dental examination Z01.20 [facility] [address] [id number] Jan, Encounter for dental examination Z01.20 [facility] [address] [address] Nov, Fever, unspecified R50.9 and Acute nasop haryngitis J00 [facility] [address] [address] 18 Sep, 2015 Abdominal pain, acute, right upper quadr ant 789.01 [facility] [address] [address] Sep, [place] [address] [address] Aug, Irritable bowel syndrome with diarrhea K 58.0 [place] [address] [address] Aug, Urinary tract infection, site not specif ied N39.0 and Back pain M54.9 [place] [address] [address] Mar, Abdominal pain, acute, right upper quadr ant 789.01 [place] [address] [address] Mar, [place] [address] [address] Mar, Nausea 787.02 and Abdominal pain, acute, right upper quadrant 789.01 [place] [address] [address] Mar, Nausea 787.02 and Abdominal pain 789.00 [place] [address] [address] Mar, Nausea 787.02 [place] [address] [address] Jan, Amenorrhea 626.0 [place] [address] [address] Jan, Amenorrhea 626.0 and Obesity 278.00 [place] [address] [address] December, Amenorrhea 626.0 and Cough 786.2 [place] [address] [address] Nov, [place] [address] [address] Nov, [facility] [address] [facility] [id number] [place] [address] May, [facility] [address] [facility] [id number] [place] [address] May, [facility] [address] [id number] [place] [address] Mar, [facility] [address] [facility] [id number] [place] [address] Mar, [facility] [address] [facility] [id number] [place] [address] Mar, [facility] [address] [facility] [id number] [place] [address] Mar, [facility] [address] [id number] [place] [address] Mar, [facility] [address] [id number] [place] [address] Mar, [facility] [address] [id number] [place] [address] Mar, [facility] [address] [id number] [place] [address] Mar, [facility] [address] [id number] [place] [address] Mar, [facility] [address] [id number] [place] [address] Mar, [facility] [address] [facility] [id number] [place] [address] Mar, [facility] [address] [id number] [place] [address] Mar, [facility] [address] [id number] [place] [address] Mar, [facility] [address] [id number] [place] [address] Mar, [facility] [address] [id number] [place] [address] Mar, 2013 [facility] [address] [id number] [place] [address] Feb, 2013 [facility] [address] [facility] [id number] [place] [address] Feb, 2013 [facility] [address] [id number] [place] [address] Feb, 2013 [facility] [address] [facility] [id number] [place] [address] Feb, 2013 [facility] [address] [facility] [id number] [place] [address] Feb, 2013 [facility] [address] [id number] [place] [address] Feb, 2013 [facility] [address] [id number] [place] [address] Feb, 2013 [facility] [address] [id number] [place] [address] Feb, 2013 [facility] [address] [facility] [id number] [place] [address] Feb, 2013 [facility] [address] [id number] [place] [address] Feb, 2013 [facility] [address] [id number] [place] [address] Feb, 2013 [facility] [address] [id number] [place] [address] Feb, 2013 [facility] [address] [facility] [id number] [place] [address] Feb, 2013 [facility] [address] [id number] [place] [address] Feb, 2013 [facility] [address] [id number] [place] [address] Feb, 2013 [facility] [address] [id number] [place] [address] Jan, [facility] [address] [facility] [id number] [place] [address] Jan, [facility] [address] [facility] [id number] [place] [address] Jan, [facility] [address] [id number] [place] [address] Jan, [facility] [address] [id number] [place] [address] Jan, [facility] [address] [facility] [id number] [place] [address] Jan, [facility] [address] [id number] [place] [address] Jan, [facility] [address] [id number] [place] [address] Jan, [facility] [address] [id number] [place] [address] Jan, [facility] [address] [id number] [place] [address] Jan, [facility] [address] [id number] [place] [address] Jan, [facility] [address] [id number] [place] [address] Jan, [facility] [address] [id number] [place] [address] Jan, [facility] [address] [id number] [place] [address] December, [facility] [address] [facility] [id number] [place] [address] December, [facility] [address] [id number] [place] [address] December, [facility] [address] [id number] [place] [address] December, [facility] [address] [id number] [place] [address] December, [facility] [address] [facility] [id number] [place] [address] December, [facility] [address] [facility] [id number] [place] [address] December, [facility] [address] [id number] [place] [address] December, [facility] [address] [facility] [id number] [place] [address] December, [facility] [address] [facility] [id number] [place] [address] December, [facility] [address] [id number] [place] [address] December, [facility] [address] [id number] [place] [address] December, [facility] [address] [id number] [place] [address] Nov, [facility] [address] [facility] [id number] [place] [address] Nov, [facility] [address] [id number] [place] [address] Oct, [facility] [address] [id number] [place] [address] Oct, [facility] [address] [id number] [place] [address] Oct, [facility] [address] [facility] [id number] [place] [address] Oct, [facility] [address] [id number] [place] [address] Oct, [facility] [address] [id number] [place] [address] Oct, [facility] [address] [id number] [place] [address] Oct, [facility] [address] [id number] [place] [address] Oct, [facility] [address] [facility] [id number] [place] [address] Oct, [facility] [address] [id number] [place] [address] Oct, [facility] [address] [id number] [place] [address] Oct, [facility] [address] [id number] [place] [address] Oct, [facility] [address] [id number] [place] [address] Oct, [facility] [address] [id number] [place] [address] Oct, [facility] [address] [id number] [place] [address] Oct, [facility] [address] [id number] [place] [address] Oct, [facility] [address] [id number] [place] [address] Oct, [facility] [address] [id number] [place] [address] Sep, [facility] [address] [id number] [place] [address] Sep, [facility] [address] [id number] [place] [address] Sep, [facility] [address] [id number] [place] [address] Jun, [facility] [address] [id number] [place] [address] Jun, [facility] [address] [id number] [place] [address] Jun, [facility] [address] [id number] [place] [address] Jun, [facility] [address] [id number] [place] [address] Jun, [facility] [address] [id number] [place] [address] Jun, [facility] [address] [id number] [place] [address] May, [facility] [address] [id number] [place] [address] May, [facility] [address] [id number] [place] [address] May, [facility] [address] [id number] [place] [address] May, [facility] [address] [id number] [place] [address] May, [facility] [address] [id number] [place] [address] May, [facility] [address] [id number] [place] [address] 26 Sep, 2012 [facility] [address] [id number] [place] [address] 24 Sep2012 [facility] [address] [id number] [place] [address] 23 Sep, 2012 [facility] [address] [id number] [place] [address] 20 Sep, 2012 [facility] [address] [id number] [place] [address] 19 Sep, 2012 [facility] [address] [id number] [place] [address] 17 Sep, 2012 [facility] [address] [id number] [place] [address] 13 Sep, 2012 [facility] [address] [id number] [place] [address] 11 Sep, 2012 [facility] [address] [id number] [place] [address] 09 Apr, 2013 [facility] [address] [id number] [place] [address] 05 Apr, 2013 [facility] [address] [id number] [place] [address] Mar, [facility] [address] [id number] [place] [address] Nov, [facility] [address] [id number] [place] [address] Oct, [facility] [address] [id number] [place] [address] Oct, [facility] [address] [id number] [place] [address] Sep, [facility] [address] [id number] [place] [address] May, [facility] [address] [id number] [place] [address] May, [facility] [address] [id number] [place] [address] May, [facility] [address] [id number] [place] [address] May, [facility] [address] [id number] [place] [address] Apr, [facility] [id number] [place] [address] Apr, [facility] [address] [id number] [place] [address] Mar, [facility] [id number] [place] [address] Feb, [facility] [address] [id number] [place] [address] Jul, [facility] [address] [id number] [place] [address] Jul, [facility] [address] [id number] [place] [address] Jul, [facility] [address] [id number] [place] [address] December, [facility] [address] [id number] [place] [address] December, [facility] [address] [id number] [place] [address] Oct, IMMUNIZATIONS No Known Immunizations SOCIAL HISTORY [...]
--- OUTSIDE RECORDS SUMMARY | 2019-10-07 05:26 | XMS REPORT ---
Author Author Jailene RICHTER Organization [facility] Address [address] [place] [address] Care Team Providers [employer] Name Role Phone MILY RICHTER Unavailable PROBLEMS Type Condition ICD9-CM Code [id number] Code Onset Dates Condition S tatus SNOMED Code Problem Generalized anxiety disorder F41.1 A ctive 85530087 Problem Iron deficiency anemia secondary to inadequate d ietary iron intake D50.8 Active 705589092 Problem Elevated erythrocyte sedimentation rate R70.0 Active 533377720 Problem Primary insomnia F51.01 Active 397 2004 ALLERGIES No Information ENCOUNTERS Encounter Location Date Diagnosis [facility] [place] [address] [address] Jul, Visit for TB skin test Z11.[address] [address] Apr, [address] [address] Mar, Viral upper respiratory trac t infection J06.9 and Morbid obesity E66.[address] [address] Feb, [address] [address] Sep, Fever, unspecified fever cause R50.9 ; S ore throat J02.9 ; Cough R05 ; Influenza A J10.1 and BMI 40.0-44.9, adult Z68.41 [facility] IN [facility] [address] [place], [place] [id number] [address] [place] [address] Sep, Sore throat J02.9 ; Viral up per respiratory tract infection J06.9 and BMI 40.0-44.9, adult Z68.41 [place] [address] [address] 04 Jul, 2018 Bacterial conjunctivitis of right eye H1 0.9 and BMI 40.0-44.9, adult Z68.41 [place] [address] [address] 14 Jun, 2018 Viral URI J06.[address] [address] 07 Jun, 2018 Viral upper respiratory infe ction J06.9 ; Acute gastroenteritis K52.9 and BMI 40.0-44.9, adult Z68.41 [place] [address] [address] 10 May, 2018 Acute conjunctivitis of right eye, unspe cified acute conjunctivitis type H10.31 ; Unspecified mood [affective] disorder F39 ; Generalized anxiety disorder F41.1 and BMI 40.0-44.9, adult Z68.41 [place] [address] [address] May, [address] [address] Apr, Other specified abnormal findings of blo od chemistry R79.89 [place] [id number] [place] [address] Apr, Sore throat J02.9 ; Diarrhea , unspecified R19.7 and Vomiting, unspecified R11.10 [place] [address] [address] Apr, Chronic fatigue R53.82 ; Nausea R11.0 an d Lyme disease A69.20 [place] [address] [address] Apr, [place] [address] [address] Mar, Generalized anxiety disorder F41.1 ; Uns pecified mood [affective] disorder F39 ; BMI 40.0-44.9, adult Z68.41 and Myalgia M79.1 [place] [address] [address] Feb, Elevated erythrocyte sedimentation rate R70.0 [place] [address] [address] Feb, Elevated erythrocyte sedimentation rate R70.0 [place] [address] [address] Feb, Unprotected sexual intercourse Z72.51 ; Pain in left knee M25.562 and Pain in joints of right hand M25.541 [place] [address] [address] Feb, Pain in left knee M25.562 and Pain in thor ints of right hand M25.[address] [address] Feb, Unspecified mood [affective] disorder F3 9 ; Generalized anxiety disorder F41.1 ; Pain in joints of right hand M25.541 ; Pain in joints of left hand M25.542 ; Pain in right knee M25.561 ; Pain in left knee M25.562 and Morbid (severe) obesity due to excess calories E66.01 [facility] [address] [facility] [id number] [address] [place] [address] Jan, Sore throat J02.9 ; Strep th roat J02.0 ; BMI 40.0-44.9, adult Z68.41 ; Dysuria R30.0 and Acute cystitis with hematuria N30.01 [place] [address] [address] Jan, [place] [address] [address] December, Abnormal MRI of head R93.0 [place] [address] [address] December, Subcutaneous nodules R22.9 ; Syncope, un specified syncope type R55 ; Abnormal MRI of head R93.0 and Iron deficiency anemia secondary to inadequate dietary iron intake D50.8 [place] [address] [address] December, [place] [address] [address] December, Iron deficiency anemia secondary to inad equate dietary iron intake D50.8 and BMI 40.0-44.9, adult Z68.41 [facility] [place] [address] [address] [place] [id number] [address] [place] [address] Nov, Gastroenteritis K52.9 [place] [address] [address] Nov, [place] [address] [address] Nov, Bilateral hand swelling M79.89 ; Amenorr hea N91.2 ; Desire for Z31.9 ; Amenorrhea, unspecified N91.2 ; Bilateral swelling of feet M79.89 ; Rash R21 and Iron deficiency anemia, unspecified iron deficiency anemia type D50.9 [place] [address] [address] Nov, Bilateral hand swelling M79.89 ; Bilater al swelling of feet M79.89 and Rash R21 [place] [address] [address] Sep, Desire for Z31.9 and Amenorrhe a N91.2 [place] [address] [address] [place] [id number] [address] [place] [address] Aug, Scabies B86 [place] [address] [address] Aug, Amenorrhea, unspecified N91.2 [place] [address] [address] Aug, Amenorrhea, unspecified N91.2 [facility] [address] [address] Aug, Amenorrhea N91.2 and Iron deficiency ane gerson, unspecified iron deficiency anemia type D50.9 [place] [address] [address] [place] [id number] [place] [address] Aug, Iron deficiency anemia secondary to inad equate dietary iron intake D50.8 ; Amenorrhea N91.2 ; Generalized anxiety disorder F41.1 ; Unspecified mood [affective] disorder F39 and Nausea R11.0 [facility] [address] [facility] [id number] [address] [place] [address] Jul, Non-intractable vomiting wit h nausea, unspecified vomiting type R11.2 and Pleurisy R09.1 [place] [address] [address] Jul, [place] [address] [address] Jun, Unspecified mood [affective] disorder F3 9 [place] [address] [address] Jun, Unspecified mood [affective] disorder F3 9 and Generalized anxiety disorder F41.1 [place] [address] [address] May, Bilious vomiting with nausea R11.14 [place] [address] [address] May, Unspecified mood [affective] disorder F3 9 ; Generalized anxiety disorder F41.1 and Iron deficiency anemia, unspecified iron deficiency anemia type D50.9 [place] [address] [address] Apr, Unspecified mood [affective] disorder F3 9 [place] [address] [address] Apr, Iron deficiency anemia, unspecified iron deficiency anemia type D50.9 [place] [address] [address] Apr, Iron deficiency anemia, unspecified iron deficiency anemia type D50.9 [facility] [address] [address] Apr, Unspecified mood [affective] disorder F3 9 [facility] [address] [address] Apr, Abnormal CBC R79.89 [place] [address] [address] Apr, Abnormal CBC R79.89 [place] [address] [address] 05 Apr, 2017 Encounter to establish care with pramod patrick Z76.89 ; Unspecified mood [affective] disorder F39 and Primary insomnia F51.01 [place] [address] [address] Mar, Unspecified mood [affective] disorder F3 9 and Generalized anxiety disorder F41.1 [facility] [address] [facility] [id number] [address] [place] [address] Mar, Sore throat J02.9 and Strep pharyngitis J02.0 [facility] [address] [id number] Feb, Dental examination Z01.20 [facility] [address] [id number] Jan, Encounter for dental examination Z01.20 [facility] [address] [address] Nov, Fever, unspecified R50.9 and Acute nasop haryngitis J00 [facility] [address] [address] 18 Sep, 2015 Abdominal pain, acute, right upper quadr ant 789.01 [facility] [address] [address] 10 Sep, 2015 [place] [address] [address] Aug, Irritable bowel syndrome with diarrhea K 58.0 [place] [address] [address] Aug, Urinary tract infection, site not specif ied N39.0 and Back pain M54.9 [place] [address] [address] Mar, Abdominal pain, acute, right upper quadr ant 789.01 [place] [address] [address] Mar, [place] [address] [address] Mar, Nausea 787.02 and Abdominal pain, acute, right upper quadrant 789.01 [place] [address] [address] Mar, Nausea 787.02 and Abdominal pain 789.00 [place] [address] [address] Mar, Nausea 787.02 [place] [address] [address] Jan, Amenorrhea 626.0 [place] [address] [address] Jan, Amenorrhea 626.0 and Obesity 278.00 [place] [address] [address] December, Amenorrhea 626.0 and Cough 786.2 [place] [address] [address] Nov, [place] [address] [address] Nov, [place] [address] [address] May, [facility] [address] [id number] [facility] [address] May, [facility] [address] [facility] [id number] [place] [address] Mar, [facility] [address] [facility] [id number] [place] [address] Mar, [facility] [address] [id number] [place] [address] Mar, [facility] [address] [facility] [id number] [place] [address] Mar, [facility] [address] [facility] [id number] [place] [address] Mar, [facility] [address] [id number] [place] [address] Mar, [facility] [address] [id number] [place] [address] Mar, [facility] [address] [id number] [place] [address] Mar, [facility] [address] [facility] [id number] [place] [address] Mar, [facility] [address] [id number] [place] [address] Mar, [facility] [address] [id number] [place] [address] Mar, [facility] [address] [facility] [id number] [place] [address] Mar, [facility] [address] [facility] [id number] [place] [address] Mar, [facility] [address] [id number] [place] [address] Mar, [facility] [address] [id number] [place] [address] Mar, [facility] [address] [id number] [place] [address] Feb, [facility] [address] [id number] [place] [address] Feb, 2013 [facility] [address] [id number] [facility] [address] Feb, 2013 [facility] [address] [facility] [id number] [place] [address] Feb, 2013 [facility] [address] [facility] [id number] [facility] [address] Feb, 2013 [facility] [address] [facility] [id number] [place] [address] Feb, 2013 [facility] [address] [facility] [id number] [place] [address] Feb, 2013 [facility] [address] [id number] [place] [address] Feb, 2013 [facility] [address] [id number] [place] [address] Feb, 2013 [facility] [address] [facility] [id number] [place] [address] Feb, 2013 [facility] [address] [id number] [place] [address] Feb, 2013 [facility] [address] [id number] [place] [address] Feb, 2013 [facility] [address] [id number] [place] [address] Feb, 2013 [facility] [address] [facility] [id number] [place] [address] Feb, 2013 [facility] [address] [facility] [id number] [place] [address] Feb, 2013 [facility] [address] [facility] [id number] [place] [address] Jan, [facility] [address] [id number] [place] [address] Jan, [facility] [address] [id number] [facility] [address] Jan, [facility] [address] [facility] [id number] [facility] [address] Jan, [facility] [address] [facility] [id number] [facility] [address] Jan, [facility] [address] [id number] [place] [address] Jan, [facility] [address] [facility] [id number] [facility] [address] Jan, [facility] [address] [facility] [id number] [facility] [address] Jan, [facility] [address] [id number] [place] [address] Jan, [facility] [address] [id number] [place] [address] Jan, [facility] [address] [id number] [place] [address] Jan, [facility] [address] [facility] [id number] [facility] [address] Jan, [facility] [address] [id number] [place] [address] Jan, [facility] [address] [id number] [place] [address] December, [facility] [address] [id number] [facility] [address] December, [facility] [address] [facility] [id number] [facility] [address] December, [facility] [address] [id number] [place] [address] December, [facility] [address] [facility] [id number] [place] [address] December, [facility] [address] [id number] [place] [address] December, [facility] [address] [facility] [id number] [place] [address] December, [facility] [address] [id number] [place] [address] December, [facility] [address] [id number] [place] [address] December, [facility] [address] [id number] [place] [address] December, [facility] [address] [facility] [id number] [place] [address] December, [facility] [address] [facility] [id number] [place] [address] December, [facility] [address] [id number] [place] [address] Nov, [facility] [address] [id number] [place] [address] Nov, [facility] [address] [id number] [place] [address] Oct, [facility] [address] [id number] [place] [address] Oct, [facility] [address] [id number] [place] [address] Oct, [facility] [address] [id number] [place] [address] Oct, [facility] [address] [id number] [place] [address] Oct, [facility] [address] [facility] [id number] [place] [address] Oct, [facility] [address] [id number] [place] [address] Oct, [facility] [address] [id number] [place] [address] Oct, [facility] [address] [id number] [place] [address] Oct, [facility] [address] [facility] [id number] [place] [address] 08 Oct, 2013 [facility] [address] [facility] [id number] [facility] [address] Oct, [facility] [address] [id number] [place] [address] Oct, 2013 [facility] [address] [id number] [place] [address] Oct, [facility] [address] [facility] [id number] [place] [address] Oct, [facility] [address] [id number] [place] [address] Oct, [facility] [address] [id number] [place] [address] Oct, [facility] [address] [id number] [place] [address] Oct, [facility] [address] [id number] [place] [address] Sep, [facility] [address] [id number] [place] [address] Sep, [facility] [address] [id number] [place] [address] Sep, [facility] [address] [id number] [place] [address] Jun, [facility] [address] [id number] [place] [address] Jun, [facility] [address] [id number] [place] [address] Jun, [facility] [address] [id number] [place] [address] Jun, [facility] [address] [id number] [place] [address] Jun, [facility] [address] [id number] [place] [address] Jun, [facility] [address] [id number] [place] [address] May, [facility] [address] [id number] [place] [address] May, [facility] [address] [id number] [place] [address] May, [facility] [address] [id number] [place] [address] 15 May, 2013 [facility] [address] [id number] [place] [address] 15 May, 2013 [facility] [address] [id number] [place] [address] May, [facility] [address] [id number] [place] [address] 26 Apr, 2012 [facility] [address] [id number] [place] [address] 24 Sep, 2012 [facility] [address] [id number] [place] [address] 23 Sep, 2012 [facility] [address] [id number] [place] [address] 20 Sep, 2012 [facility] [address] [id number] [place] [address] 19 Sep, 2012 [facility] [address] [id number] [place] [address] 17 Sep, 2012 [facility] [address] [id number] [place] [address] 13 Sep, 2012 [facility] [address] [id number] [place] [address] 11 Sep, 2012 [facility] [address] [id number] [place] [address] 09 Sep, 2012 [facility] [address] [id number] [place] [address] 05 Apr, 2013 [facility] [address] [id number] [place] [address] Mar, [facility] [address] [id number] [place] [address] Nov, [facility] [address] [id number] [place] [address] Oct, [facility] [address] [place] [id number] [place] [address] Oct, [facility] [address] [id number] [place] [address] Sep, [facility] [address] [id number] [place] [address] May, [facility] [address] [id number] [place] [address] May, [facility] [id number] [place] [address] May, [facility] [id number] [place] [address] May, [facility] [address] [id number] [place] [address] Apr, [facility] [id number] [place] [address] Apr, [facility] [id number] [place] [address] Mar, [facility] [address] [id number] [place] [address] Feb, [facility] [address] [id number] [place] [address] Jul, [facility] [id number] [place] [address] Jul, [facility] [address] [id number] [place] [address] Jul, [facility] [id number] [place] [address] December, [facility] [address] [facility] [id number] [place] [address] December, [facility] [address] [facility] [id number] [place] [address] Oct, IMMUNIZATIONS No Known Immunizations SOCIAL HISTORY Never Assessed REASON FOR VISIT PLAN OF CARE VITAL SIGNS MEDICATIONS Unknown Medications RESULTS No Results PROCEDURES No Known procedures INSTRUCTIONS MEDICATIONS ADMINISTERED No Known Medications MEDICAL (GENERAL) HISTORY Type Description Date Medical History anemia Medical History asthma Surgical History section x2 Surgical History hernia repair Hospitalization History surgeries Hospitalization History possible gallbladder problems Hospitalization History ER visit for UTI 09/12/15 Hospitalization History dizziness, blackout 12/28/2017
--- OUTSIDE RECORDS SUMMARY | 2019-10-07 05:26 | XMS REPORT ---
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 Name Role Phone MACK FARAH Unavailable PROBLEMS Type Condition ICD9-CM Code ZKR14-MS Code Onset Dates Condition S tatus SNOMED Code Problem Generalized anxiety disorder F41.1 A ctive 06677873 Problem Iron deficiency anemia secondary to inadequate d ietary iron intake D50.8 Active 507060281 Problem Elevated erythrocyte sedimentation rate R70.0 Active 823970491 Problem Primary insomnia F51.01 Active 397 2004 ALLERGIES No Information ENCOUNTERS Encounter Location Date Diagnosis [facility] [address] [address] Apr, [facility] [address] [address] Mar, Viral upper respiratory trac t infection J06.9 and Morbid obesity E66.01 [facility] [address] [place], [place] [id number] [address] [place] [address] Feb, [facility] [address] [place] [address] Sep, Fever, unspecified fever cau se R50.9 ; Sore throat J02.9 ; Cough R05 ; Influenza A J10.1 and BMI 40.0-44.9, adult Z68.41 [facility] [address] [address] 15 Sep, 2018 Sore throat J02.9 ; Viral up per respiratory tract infection J06.9 and BMI 40.0-44.9, adult Z68.41 [facility] [address] [place] [address] 04 Jul, 2018 Bacterial conjunctivitis of right eye H10.9 and BMI 40.0-44.9, adult Z68.41 [place] [address] [address] 14 Jun, 2018 Viral URI J06.9 [place] [address] [address] 07 Jun, 2018 Viral upper respiratory infe ction J06.9 ; Acute gastroenteritis K52.9 and BMI 40.0-44.9, adult Z68.41 [place] [address] [address] 10 May, 2018 Acute conjunctivitis of righ t eye, unspecified acute conjunctivitis type H10.31 ; Unspecified mood [affective] disorder F39 ; Generalized anxiety disorder F41.1 and BMI 40.0-44.9, adult Z68.[address] [address] 08 May, 2018 [place] [address] [address] 27 Apr, 2018 Other specified abnormal fin dings of blood chemistry R79.89 [place] [address] [address] [place] [id number] [address] [place] [address] Apr, Sore throat J02.9 ; Diarrhea , unspecified R19.7 and Vomiting, unspecified R11.10 [place] [address] [place] [id number] [address] [place] [address] Apr, Chronic fatigue R53.82 ; Rey sea R11.0 and Lyme disease A69.[address] [address] Apr, [address] [address] Mar, Generalized anxiety disorder F41.1 ; Unspecified mood [affective] disorder F39 ; BMI 40.0-44.9, adult Z68.41 and Myalgia M79.1 [facility] [address] [place] [address] Feb, Elevated erythrocyte sedimen tation rate R70.0 [place] [address] [address] Feb, Elevated erythrocyte sedimen tation rate R70.0 [place] [address] [address] Feb, Unprotected sexual intercour se Z72.51 ; Pain in left knee M25.562 and Pain in joints of right hand M25.541 [place] [address] [address] Feb, Pain in left knee M25.562 an d Pain in joints of right hand M25.541 [place] [address] [address] Feb, Unspecified mood [affective] disorder F39 ; Generalized anxiety disorder F41.1 ; Pain in joints of right hand M25.541 ; Pain in joints of left hand M25.542 ; Pain in right knee M25.561 ; Pain in left knee M25.562 and Morbid (severe) obesity due to excess calories E66.01 [facility] [address] [place] [id number] [place] [address] Jan, Sore throat J02.9 ; Strep th roat J02.0 ; BMI 40.0-44.9, adult Z68.41 ; Dysuria R30.0 and Acute cystitis with hematuria N30.01 [facility] [address] [address] Jan, [facility] [address] [address] December, Abnormal MRI of head R93.0 [facility] [address] [address] December, Subcutaneous nodules R22.9 ; Syncope, unspecified syncope type R55 ; Abnormal MRI of head R93.0 and Iron deficiency anemia secondary to inadequate dietary iron intake D50.8 [place] [address] [place] [id number] [address] [place] [address] December, [place] [address] [address] December, Iron deficiency anemia secon chuck to inadequate dietary iron intake D50.8 and BMI 40.0-44.9, adult Z68.41 [facility] [address] [address] Nov, Gastroenteritis K52.9 [place] [address] [address] Nov, [place] [address] [address] Nov, Bilateral hand swelling M79. 89 ; Amenorrhea N91.2 ; Desire for Z31.9 ; Amenorrhea, unspecified N91.2 ; Bilateral swelling of feet M79.89 ; Rash R21 and Iron deficiency anemia, unspecified iron deficiency anemia type D50.9 [place] [address] [place] [address] Nov, Bilateral hand swelling M79. 89 ; Bilateral swelling of feet M79.89 and Rash R21 [place] [address] [place] [id number] [place] [address] Sep, Desire for Z31.9 a nd Amenorrhea N91.2 [facility] [address] [address] Aug, Scabies B86 [place] [address] [place] [id number] [place] [address] Aug, Amenorrhea, unspecified N91. 2 [place] [address] [place] [address] 16 Aug, 2017 Amenorrhea, unspecified N91. 2 [facility] [address] [place] [id number] [address] [place] [address] 08 Aug, 2017 Amenorrhea N91.2 and Iron de ficiency anemia, unspecified iron deficiency anemia type D50.9 [facility] [address] [place] [id number] [address] [place] [address] Aug, Iron deficiency anemia secon chuck to inadequate dietary iron intake D50.8 ; Amenorrhea N91.2 ; Generalized anxiety disorder F41.1 ; Unspecified mood [affective] disorder F39 and Nausea R11.0 [facility] [address] [facility] [id number] [address] [place] [address] Jul, Non-intractable vomiting wit h nausea, unspecified vomiting type R11.2 and Pleurisy R09.1 [place] [address] [place] [id number] [address] [place] [address] Jul, [place] [address] [place] [id number] [address] [place] [address] Jun, Unspecified mood [affective] disorder F39 [place] [address] [place] [id number] [address] [place] [address] 02 Jun, 2017 Unspecified mood [affective] disorder F39 and Generalized anxiety disorder F41.1 [facility] [address] [place] [id number] [address] [place] [address] May, Bilious vomiting with nausea R11.14 [facility] [address] [place] [id number] [address] [place] [address] May, Unspecified mood [affective] disorder F39 ; Generalized anxiety disorder F41.1 and Iron deficiency anemia, unspecified iron deficiency anemia type D50.9 [facility] [address] [facility] [id number] [address] [place] [address] Apr, Unspecified mood [affective] disorder F39 [place] [address] [place] [id number] [address] [place] [address] Apr, Iron deficiency anemia, unsp ecified iron deficiency anemia type D50.9 [facility] [address] [facility] [id number] [address] [place] [address] Apr, Iron deficiency anemia, unsp ecified iron deficiency anemia type D50.9 [facility] [address] [facility] [id number] [address] [place] [address] 18 Apr, 2017 Unspecified mood [affective] disorder F39 [facility] [address] [facility] [id number] [address] [place] [address] Apr, Abnormal CBC R79.89 [facility] [address] [facility] [id number] [place] [address] 07 Apr, 2017 Abnormal CBC R79.89 [facility] [address] [facility] [id number] [address] [place] [address] 05 Apr, 2017 Encounter to establish care with new doctor Z76.89 ; Unspecified mood [affective] disorder F39 and Primary insomnia F51.01 [facility] [address] [facility] [id number] [address] [place] [address] Mar, Unspecified mood [affective] disorder F39 and Generalized anxiety disorder F41.1 [facility] [address] [facility] [id number] [address] [place] [address] Mar, Sore throat J02.9 and Strep pharyngitis J02.0 [facility] [address] [place] [id number] [address] [place] [id number] Feb, Dental examination Z01.20 [facility] [id number] [place] [id number] Jan, Encounter for dental examina tion Z01.20 [facility] [address] [facility] [id number] [address] [place] [address] 11 Nov, 2016 Fever, unspecified R50.9 and Acute nasopharyngitis J00 [facility] [address] [place] [id number] [address] [place] [address] 18 Sep, 2015 Abdominal pain, acute, right upper quadrant 789.01 [facility] [address] [address] Sep, [facility] [address] [address] Aug, Irritable bowel syndrome wit h diarrhea K58.0 [facility] [address] [address] Aug, Urinary tract infection, sit e not specified N39.0 and Back pain M54.9 [place] [address] [address] Mar, Abdominal pain, acute, right upper quadrant 789.01 [place] [address] [address] Mar, [facility] [address] [address] Mar, Nausea 787.02 and Abdominal pain, acute, right upper quadrant 789.01 [place] [address] [address] Mar, Nausea 787.02 and Abdominal pain 789.00 [place] [address] [address] Mar, Nausea 787.02 [place] [address] [address] Jan, Amenorrhea 626.0 [place] [address] [address] Jan, Amenorrhea 626.0 and Obesity 278.00 [facility] [address] [place] [id number] [place] [address] December, Amenorrhea 626.0 and Cough 7 86.2 [facility] [address] [id number] [address] [place] [address], [place] [address] 14 Nov, 2014 [facility] [address] [id number] [address] [place] [address], [place] [address] Nov, [facility] [address] [id number] [address] [place] [address], [place] [address] May, [facility] [address] [id number] [address] [place] [address], [place] [address] May, [facility] [address] [id number] [address] [place] [address], [place] [address] Mar, [facility] [address] [id number] [address] [place] [address], [place] [address] Mar, [facility] [address] [id number] [address] [place] [address], [place] [address] Mar, [facility] [address] [id number] [address] [place] [address], [place] [address] Mar, [facility] [address] [id number] [address] [place] [address], [place] [address] Mar, [facility] [address] [id number] [address] [place] [address], [place] [address] Mar, [facility] [address] [id number] [address] [place] [address], [place] [address] Mar, [facility] [address] [id number] [address] [place] [address], [place] [address] Mar, [facility] [address] [id number] [address] [place] [address], [place] [address] Mar, [facility] [address] [id number] [address] [place] [address], [place] [address] Mar, [facility] [address] [id number] [address] [place] [address], [place] [address] Mar, [facility] [address] [id number] [address] [place] [address], [place] [address] Mar, [facility] [address] [id number] [address] [place] [address], [place] [address] Mar, [facility] [address] [id number] [address] [place] [address], [place] [address] Mar, [facility] [address] [id number] [address] [place] [address], [place] [address] Mar, [facility] [address] [id number] [address] [place] [address], [place] [address] Feb, [facility] [address] [id number] [address] [place] [address], [place] [address] Feb, [facility] [address] [id number] [address] [place] [address], [place] [address] Feb, [facility] [address] [id number] [address] [place] [address], [place] [address] Feb, [facility] [address] [id number] [address] [place] [address], [place] [address] Feb, [facility] [address] [id number] [address] [place] [address], [place] [address] Feb, [facility] [address] [id number] [address] [place] [address], [place] [address] Feb, [facility] [address] [id number] [address] [place] [address], [place] [address] Feb, [facility] [address] [id number] [address] [place] [address], [place] [address] Feb, [facility] [address] [id number] [address] [place] [address], [place] [address] Feb, [facility] [address] [id number] [address] [place] [address], [place] [address] Feb, [facility] [address] [id number] [address] [place] [address], [place] [address] Feb, [facility] [address] [id number] [address] [place] [address], [place] [address] Feb, [facility] [address] [id number] [facility] [place] [address] Feb, [facility] [address] [id number] [address] [place] [address], [place] [address] Feb, [facility] [address] [id number] [address] [place] [address], [place] [address] Jan, [facility] [address] [id number] [address] [place] [address], [place] [address] Jan, [facility] [address] [id number] [address] [place] [address], [place] [address] Jan, [facility] [address] [id number] [address] [place] [address], [place] [address] Jan, [facility] [address] [id number] [address] [place] [address], [place] [address] Jan, [facility] [address] [id number] [address] [place] [address], [place] [address] Jan, [facility] [address] [id number] [address] [place] [address], [place] [address] Jan, [facility] [address] [id number] [address] [place] [address], [place] [address] Jan, [facility] [address] [id number] [address] [place] [address], [place] [address] Jan, [facility] [address] [id number] [address] [place] [address], [place] [address] Jan, [facility] [address] [id number] [address] [place] [address], [place] [address] Jan, [facility] [address] [id number] [address] [place] [address], [place] [address] Jan, [facility] [address] [id number] [address] [place] [address], [place] [address] Jan, [facility] [address] [id number] [facility] [place] [address] December, [facility] [address] [id number] [facility] [place] [address] December, [facility] [address] [id number] [facility] [place] [address] December, [facility] [address] [id number] [facility] [place] [address] December, [facility] [address] [id number] [facility] [place] [address] December, [facility] [address] [id number] [address] [place] [address], [place] [address] December, [facility] [address] [id number] [address] [place] [address], [place] [address] December, [facility] [address] [id number] [address] [place] [address], [place] [address] December, [facility] [address] [id number] [address] [place] [address], [place] [address] December, [facility] [address] [id number] [address] [place] [address], [place] [address] December, [facility] [address] [id number] [address] [place] [address], [place] [address] December, [facility] [address] [id number] [address] [place] [address], [place] [address] December, [facility] [address] [id number] [address] [place] [address], [place] [address] Nov, [facility] [address] [id number] [address] [place] [address], [place] [address] Nov, [facility] [address] [id number] [facility] [place] [address] Oct, [facility] [address] [id number] [address] [place] [address], [place] [address] 21 Oct, 2013 [facility] [address] [id number] [facility] [place] [address] 20 Oct, 2013 [facility] [address] [id number] [facility] [place] [address] 20 Oct, 2013 [facility] [address] [id number] [facility] [place] [address] 19 Oct, 2013 [facility] [address] [id number] [facility] [place] [address] 19 Oct, 2013 [facility] [address] [id number] [facility] [place] [address] 19 Oct, 2013 [facility] [address] [id number] [address] [place] [address], [place] [address] 19 Oct, 2013 [facility] [address] [id number] [address] [place] [address], [place] [address] 18 Oct, 2013 [facility] [address] [id number] [address] [place] [address], [place] [address] 08 Oct, 2013 [facility] [address] [id number] [address] [place] [address], [place] [address] 07 Oct, 2013 [facility] [address] [id number] [address] [place] [address], [place] [address] 06 Oct, 2013 [facility] [address] [id number] [address] [place] [address], [place] [address] 06 Oct, 2013 [facility] [address] [id number] [address] [place] [address], [place] [address] 05 Oct, 2013 [facility] [address] [id number] [address] [place] [address], [place] [address] 05 Oct, 2013 [facility] [address] [id number] [address] [place] [address], [place] [address] 05 Oct, 2013 [facility] [address] [id number] [facility] [place] [address] 05 Oct, 2013 [facility] [address] [id number] [address] [place] [address], [place] [address] Sep, [facility] [address] [id number] [address] [place] [address], [place] [address] Sep, [facility] [address] [id number] [address] [place] [address], [place] [address] Sep, [facility] [address] [id number] [address] [place] [address], [place] [address] Jun, [facility] [address] [id number] [address] [place] [address], [place] [address] Jun, [facility] [address] [id number] [address] [place] [address], [place] [address] Jun, [facility] [address] [id number] [address] [place] [address], [place] [address] Jun, [facility] [address] [id number] [address] [place] [address], [place] [address] Jun, [facility] [address] [id number] [address] [place] [address], [place] [address] Jun, [facility] [address] [id number] [address] [place] [address], [place] [address] May, [facility] [address] [id number] [address] [place] [address], [place] [address] May, [facility] [address] [id number] [address] [place] [address], [place] [address] May, [facility] [address] [id number] [address] [place] [address], [place] [address] May, [facility] [address] [id number] [address] [place] [address], [place] [address] May, [facility] [address] [id number] [address] [place] [address], [place] [address] May, [facility] [address] [id number] [address] [place] [address], [place] [address] Apr, [facility] [address] [id number] [address] [place] [address], [place] [address] 24 Apr, 2012 [facility] [address] [id number] [address] [place] [address], [place] [address] 23 Apr, 2012 [facility] [address] [id number] [address] [place] [address], [place] [address] 20 Apr, 2012 [facility] [address] [id number] [address] [place] [address], [place] [address] 19 Apr, 2012 [facility] [address] [id number] [address] [place] [address], [place] [address] 17 Apr, 2012 [facility] [address] [id number] [address] [place] [address], [place] [address] 13 Apr, 2013 [facility] [address] [id number] [address] [place] [address], [place] [address] 11 Apr, 2013 [facility] [address] [id number] [address] [place] [address], [place] [address] 09 Apr, 2013 [facility] [address] [id number] [address] [place] [address], [place] [address] 05 Apr, 2013 [facility] [address] [id number] [address] [place] [address], [place] [address] Mar, [facility] [address] [id number] [address] [place] [address], [place] [address] Nov, [facility] [address] [id number] [address] [place] [phone] Oct, [facility] [address] [id number] [address] [place] [address], [place] [address] Oct, [facility] [address] [id number] [address] [place] [address], [place] [address] Sep, [facility] [address] [id number] [address] [place] [address], [place] [address] May, [facility] [address] [id number] [address] [place] [phone] May, [facility] [address] [id number] [address] [place] [phone] May, [facility] [address] [id number] [address] [place] [phone] May, [facility] [address] [id number] [address] [place] [phone] Apr, [facility] [address] [id number] [address] [place] [phone] Apr, [facility] [address] [id number] [address] [place] [phone] Mar, [facility] [address] [id number] [address] [place] [phone] Feb, [facility] [address] [id number] [address] [place] [id number] Jul, [facility] [address] [id number] [address] [place] [phone] Jul, [facility] [address] [id number] [address] [place] [phone] Jul, [facility] [address] [id number] [address] [place] [id number] December, [facility] [address] [id number] [address] [place] [phone] December, [facility] [address] [id number] [address] [place] [phone] Oct, IMMUNIZATIONS No Known Immunizations SOCIAL HISTORY [...]
--- OUTSIDE RECORDS SUMMARY | 2019-10-07 05:26 | XMS REPORT ---
Author Author Jailene FARAH Organization [facility] Address [address] [place] [address] Care Team Providers Care Vice President Sales And Marketing Name Role Phone GAGAN MACK Unavailable PROBLEMS Type Condition ICD9-CM Code OVI40-DH Code Onset Dates Condition S tatus SNOMED Code Problem Generalized anxiety disorder F41.1 A ctive [id number] Problem Iron deficiency anemia secondary to inadequate d ietary iron intake D50.8 Active 845776607 Problem Elevated erythrocyte sedimentation rate R70.0 Active [id number] Problem Primary insomnia F51.01 Active 397 2004 ALLERGIES No Information ENCOUNTERS Encounter Location Date Diagnosis [facility] IN [address] [address] Aug, Nausea R11.0 and Gastroenter itis K52.[address] [address] Jul, Visit for TB skin test Z11.[address] [address] Apr, [facility] IN [address] [address] Mar, Viral upper respiratory trac t infection J06.9 and Morbid obesity E66.[address] [address] Feb, [address] [address] Sep, Fever, unspecified fever cause R50.9 ; S ore throat J02.9 ; Cough R05 ; Influenza A J10.1 and BMI 40.0-44.9, adult Z68.41 [facility] IN [place] [id number] [place] [address] 15 Sep, 2018 Sore throat J02.9 ; Viral up per respiratory tract infection J06.9 and BMI 40.0-44.9, adult Z68.[address] [address] 04 Jul, 2018 Bacterial conjunctivitis of right eye H1 0.9 and BMI 40.0-44.9, adult Z68.[address] [address] 14 Jun, 2018 Viral URI J06.[address] [address] 07 Jun, 2018 Viral upper respiratory infe ction J06.9 ; Acute gastroenteritis K52.9 and BMI 40.0-44.9, adult Z68.[address] [address] 10 May, 2018 Acute conjunctivitis of right eye, unspe cified acute conjunctivitis type H10.31 ; Unspecified mood [affective] disorder F39 ; Generalized anxiety disorder F41.1 and BMI 40.0-44.9, adult Z68.[address] [address] 08 May, [address] [address] Apr, Other specified abnormal findings of blo od chemistry R79.89 [place] [id number] [address] [place] [address] Apr, Sore throat J02.9 ; Diarrhea , unspecified R19.7 and Vomiting, unspecified R11.[address] [address] 11 Apr, 2018 Chronic fatigue R53.82 ; Nausea R11.0 an d Lyme disease A69.[address] [address] Apr, [place] [address] [address] Mar, Generalized anxiety disorder F41.1 ; Uns pecified mood [affective] disorder F39 ; BMI 40.0-44.9, adult Z68.41 and Myalgia M79.1 [place] [address] [address] Feb, Elevated erythrocyte sedimentation rate R70.0 [place] [address] [address] Feb, Elevated erythrocyte sedimentation rate R70.0 [place] [address] [address] Feb, Unprotected sexual intercourse Z72.51 ; Pain in left knee M25.562 and Pain in joints of right hand M25.541 [place] [address] [address] Feb, Pain in left knee M25.562 and Pain in thor ints of right hand M25.541 [place] [address] [address] Feb, Unspecified mood [affective] disorder F3 9 ; Generalized anxiety disorder F41.1 ; Pain in joints of right hand M25.541 ; Pain in joints of left hand M25.542 ; Pain in right knee M25.561 ; Pain in left knee M25.562 and Morbid (severe) obesity due to excess calories E66.01 [facility] [address] [facility] [id number] [address] [place] [address] Jan, Sore throat J02.9 ; Strep th roat J02.0 ; BMI 40.0-44.9, adult Z68.41 ; Dysuria R30.0 and Acute cystitis with hematuria N30.01 [facility] [address] [place] [id number] [place] [address] Jan, [place] [address] [address] December, Abnormal MRI of head R93.[address] [address] December, Subcutaneous nodules R22.9 ; Syncope, un specified syncope type R55 ; Abnormal MRI of head R93.0 and Iron deficiency anemia secondary to inadequate dietary iron intake D50.8 [place] [address] [address] December, [place] [address] [address] December, Iron deficiency anemia secondary to inad equate dietary iron intake D50.8 and BMI 40.0-44.9, adult Z68.41 [facility] IN [address] [id number] [place] [address] Nov, Gastroenteritis K52.9 [place] [address] [address] Nov, [place] [address] [address] Nov, Bilateral hand swelling M79.89 ; Amenorr hea N91.2 ; Desire for Z31.9 ; Amenorrhea, unspecified N91.2 ; Bilateral swelling of feet M79.89 ; Rash R21 and Iron deficiency anemia, unspecified iron deficiency anemia type D50.9 [place] [address] [address] Nov, Bilateral hand swelling M79.89 ; Bilater al swelling of feet M79.89 and Rash R21 [address] [address] Sep, Desire for Z31.9 and Amenorrhe a N91.2 [facility] IN [place] [address] [facility] [id number] [place] [address] Aug, Scabies B86 [address] [address] Aug, Amenorrhea, unspecified N91.2 [facility] [address] [address] Aug, Amenorrhea, unspecified N91.2 [place] [address] [address] Aug, Amenorrhea N91.2 and Iron deficiency ane gerson, unspecified iron deficiency anemia type D50.9 [place] [address] [address] Aug, Iron deficiency anemia secondary to inad equate dietary iron intake D50.8 ; Amenorrhea N91.2 ; Generalized anxiety disorder F41.1 ; Unspecified mood [affective] disorder F39 and Nausea R11.0 [facility] IN [facility] [address] [facility] [id number] [address] [place] [address] Jul, Non-intractable vomiting wit h nausea, unspecified vomiting type R11.2 and Pleurisy R09.1 [place] [address] [address] Jul, [place] [address] [address] Jun, Unspecified mood [affective] disorder F3 9 [place] [address] [address] 02 Jun, 2017 Unspecified mood [affective] disorder F3 9 and Generalized anxiety disorder F41.1 [place] [address] [address] May, Bilious vomiting with nausea R11.14 [place] [address] [address] May, Unspecified mood [affective] disorder F3 9 ; Generalized anxiety disorder F41.1 and Iron deficiency anemia, unspecified iron deficiency anemia type D50.9 [place] [address] [address] Apr, Unspecified mood [affective] disorder F3 9 [place] [address] [address] Apr, Iron deficiency anemia, unspecified iron deficiency anemia type D50.9 [facility] [address] [address] Apr, Iron deficiency anemia, unspecified iron deficiency anemia type D50.9 [facility] [address] [address] Apr, Unspecified mood [affective] disorder F3 9 [facility] [address] [address] Apr, Abnormal CBC R79.89 [place] [address] [address] Apr, Abnormal CBC R79.89 [place] [address] [address] Apr, Encounter to establish care with pramod patrick Z76.89 ; Unspecified mood [affective] disorder F39 and Primary insomnia F51.01 [facility] [address] [address] Mar, Unspecified mood [affective] disorder F3 9 and Generalized anxiety disorder F41.1 [facility] [address] [facility] [id number] [address] [place] [address] Mar, Sore throat J02.9 and Strep pharyngitis J02.0 [facility] [address] [id number] [place] [id number] Feb, Dental examination Z01.20 [facility] [address] [id number] Jan, Encounter for dental examination Z01.20 [facility] [address] [address] Nov, Fever, unspecified R50.9 and Acute nasop haryngitis J00 [facility] [address] [address] Sep, Abdominal pain, acute, right upper quadr ant 789.01 [facility] [address] [address] Sep, [facility] [address] [address] Aug, Irritable bowel syndrome with diarrhea K 58.0 [place] [address] [address] Aug, Urinary tract infection, site not specif ied N39.0 and Back pain M54.9 [place] [address] [address] Mar, Abdominal pain, acute, right upper quadr ant 789.01 [place] [address] [address] Mar, [place] [address] [address] Mar, Nausea 787.02 and Abdominal pain, acute, right upper quadrant 789.01 [place] [address] [address] Mar, Nausea 787.02 and Abdominal pain 789.00 [place] [address] [address] Mar, Nausea 787.02 [place] [address] [address] Jan, Amenorrhea 626.0 [place] [address] [address] Jan, Amenorrhea 626.0 and Obesity 278.00 [place] [address] [address] December, Amenorrhea 626.0 and Cough 786.2 [place] [address] [address] Nov, [facility] [address] [address] Nov, [facility] [place] [facility] [address] [id number] [facility], [place] [address] May, [facility] [place] [facility] [address] [facility] [id number] [facility], [place] [address] May, [facility] [place] [facility] [address] [facility] [id number] [facility], [place] [address] Mar, [facility] [place] [facility] [address] [id number] [facility], [place] [address] Mar, [facility] [place] [facility] [address] [id number] [facility], [place] [address] Mar, [facility] [place] [facility] [address] [id number] [place] [address] Mar, [facility] [place] [facility] [address] [id number] [facility], [place] [address] Mar, [facility] [place] [facility] [address] [id number] [facility], [place] [address] Mar, [facility] [place] [facility] [address] [facility] [id number] [facility], [place] [address] Mar, [facility] [place] [facility] [address] [id number] [facility], [place] [address] Mar, [facility] [place] [facility] [address] [facility] [id number] [place] [address] Mar, [facility] [place] [facility] [address] [id number] [place] [address] Mar, [facility] [place] [facility] [address] [id number] [facility], [place] [address] Mar, [facility] [place] [facility] [address] [id number] [place] [address] Mar, [facility] [place] [facility] [address] [facility] [id number] [place] [address] Mar, [facility] [place] [facility] [address] [id number] [place] [address] Mar, [facility] [place] [facility] [address] [id number] [place] [address] Mar, 2013 [facility] [place] [facility] [address] [id number] [place] [address] Feb, 2013 [facility] [place] [facility] [address] [facility] [id number] [place] [address] Feb, 2013 [facility] [place] [facility] [address] [id number] [place] [address] Feb, 2013 [facility] [place] [facility] [address] [facility] [id number] [place] [address] Feb, 2013 [facility] [place] [facility] [address] [facility] [id number] [place] [address] Feb, 2013 [facility] [place] [facility] [address] [id number] [place] [address] Feb, [facility] [place] [facility] [address] [id number] [place] [address] Feb, 2013 [facility] [place] [facility] [address] [id number] [place] [address] Feb, 2013 [facility] [place] [facility] [address] [facility] [id number] [place] [address] Feb, 2013 [facility] [place] [facility] [address] [id number] [place] [address] Feb, 2013 [facility] [place] [facility] [address] [id number] [place] [address] Feb, 2013 [facility] [place] [facility] [address] [id number] [place] [address] Feb, 2013 [facility] [place] [facility] [address] [id number] [place] [address] Feb, 2013 [facility] [place] [facility] [address] [id number] [place] [address] Feb, 2013 [facility] [place] [facility] [address] [id number] [place] [address] Feb, 2013 [facility] [place] [facility] [address] [id number] [place] [address] Jan, [facility] [place] [facility] [address] [facility] [id number] [place] [address] Jan, [facility] [place] [facility] [address] [id number] [place] [address] Jan, [facility] [place] [facility] [address] [id number] [place] [address] Jan, [facility] [place] [facility] [address] [id number] [place] [address] Jan, [facility] [place] [facility] [address] [facility] [id number] [place] [address] Jan, [facility] [place] [facility] [address] [id number] [place] [address] Jan, [facility] [place] [facility] [address] [id number] [place] [address] Jan, [facility] [place] [facility] [address] [id number] [place] [address] Jan, [facility] [place] [facility] [address] [id number] [place] [address] Jan, [facility] [place] [facility] [address] [id number] [place] [address] Jan, [facility] [place] [facility] [address] [id number] [place] [address] Jan, [facility] [place] [facility] [address] [id number] [place] [address] Jan, [facility] [place] [facility] [address] [id number] [place] [address] December, [facility] [place] [facility] [address] [facility] [id number] [place] [address] December, [facility] [place] [facility] [address] [id number] [place] [address] December, [facility] [place] [facility] [address] [id number] [place] [address] December, [facility] [place] [facility] [address] [id number] [place] [address] December, [facility] [place] [facility] [address] [id number] [facility], [place] [address] December, [facility] [place] [facility] [address] [facility] [id number] [facility], [place] [address] December, [facility] [place] [facility] [address] [facility] [id number] [facility], [place] [address] December, [facility] [place] [facility] [address] [id number] [facility], [place] [address] December, [facility] [place] [facility] [address] [facility] [id number] [facility], [place] [address] December, [facility] [place] [facility] [address] [facility] [id number] [place] [address] December, [facility] [place] [facility] [address] [id number] [place] [address] December, [facility] [place] [facility] [address] [id number] [place] [address] Nov, [facility] [place] [facility] [address] [facility] [id number] [place] [address] Nov, [facility] [place] [facility] [address] [id number] [place] [address] Oct, [facility] [place] [facility] [address] [facility] [id number] [place] [address] Oct, [facility] [place] [facility] [address] [id number] [place] [address] Oct, [facility] [place] [facility] [address] [facility] [id number] [place] [address] Oct, [facility] [place] [facility] [address] [id number] [place] [address] Oct, [facility] [place] [facility] [address] [facility] [id number] [place] [address] Oct, [facility] [place] [facility] [address] [id number] [place] [address] Oct, [facility] [place] [facility] [address] [id number] [place] [address] Oct, [facility] [place] [facility] [address] [facility] [id number] [place] [address] Oct, [facility] [place] [facility] [address] [id number] [place] [address] Oct, [facility] [place] [facility] [address] [id number] [place] [address] Oct, [facility] [place] [facility] [address] [id number] [place] [address] Oct, [facility] [place] [facility] [address] [id number] [place] [address] Oct, [facility] [place] [facility] [address] [id number] [place] [address] Oct, [facility] [place] [facility] [address] [id number] [place] [address] Oct, [facility] [place] [facility] [address] [id number] [place] [address] Oct, [facility] [place] [facility] [address] [id number] [place] [address] Oct, [facility] [place] [facility] [address] [id number] [place] [address] Sep, [facility] [place] [facility] [address] [id number] [place] [address] Sep, [facility] [place] [facility] [address] [id number] [place] [address] Sep, [facility] [place] [facility] [address] [id number] [place] [address] Jun, [facility] [place] [facility] [address] [id number] [place] [address] Jun, [facility] [place] [facility] [address] [id number] [place] [address] Jun, [facility] [place] [facility] [address] [id number] [place] [address] Jun, [facility] [place] [facility] [address] [id number] [place] [address] Jun, [facility] [place] [facility] [address] [id number] [place] [address] Jun, [facility] [place] [facility] [address] [id number] [place] [address] May, [facility] [place] [facility] [address] [id number] [place] [address] May, [facility] [place] [facility] [address] [id number] [place] [address] May, [facility] [place] [facility] [address] [id number] [place] [address] May, [facility] [place] [facility] [address] [id number] [place] [address] 15 May, 2013 [facility] [place] [facility] [address] [id number] [place] [address] May, [facility] [place] [facility] [address] [id number] [place] [address] 26 Apr, 2012 [facility] [place] [facility] [address] [id number] [place] [address] 24 Sep2012 [facility] [place] [facility] [address] [id number] [place] [address] 23 Sep, 2012 [facility] [place] [facility] [address] [id number] [place] [address] 20 Sep, 2012 [facility] [place] [facility] [address] [id number] [place] [address] 19 Sep, 2012 [facility] [place] [facility] [address] [id number] [place] [address] 17 Sep, 2012 [facility] [place] [facility] [address] [id number] [place] [address] 13 Sep, 2012 [facility] [place] [facility] [address] [id number] [place] [address] 11 Sep, 2012 [facility] [place] [facility] [address] [id number] [place] [address] 09 Apr, 2013 [facility] [place] [facility] [address] [id number] [place] [address] 05 Apr, 2013 [facility] [place] [facility] [address] [id number] [place] [address] Mar, [facility] [place] [facility] [address] [id number] [place] [address] Nov, [facility] [place] [facility] [address] [id number] [place] [address] Oct, [facility] [place] [facility] [address] [id number] [facility], [place] [address] Oct, [facility] [place] [facility] [address] [id number] [place] [address] Sep, [facility] [place] [facility] [address] [id number] [place] [address] May, [facility] [address] [id number] [place] [address] May, [facility] [address] [id number] [place] [address] May, [facility] [address] [id number] [place] [address] May, [facility] [address] [id number] [place] [address] Apr, [facility] [address] [id number] [place] [address] Apr, [facility] [address] [id number] [place] [address] Mar, [facility] [address] [id number] [place] [address] Feb, [facility] [address] [id number] [place] [address] Jul, [facility] [address] [id number] [place] [address] Jul, [facility] [address] [id number] [place] [address] Jul, [facility] [address] [id number] [place] [address] December, [facility] [address] [id number] [place] [address] December, [facility] [address] [id number] [place] [address] Oct, IMMUNIZATIONS No Known Immunizations SOCIAL HISTORY Never Assessed REASON FOR VISIT PLAN OF CARE VITAL SIGNS MEDICATIONS No Known Medications RESULTS No Results PROCEDURES Procedure Date Ordered Result Body Site GLUCOSE TOLERANCE TEST (GTT) January 19, 2014 INSTRUCTIONS MEDICATIONS ADMINISTERED No Known Medications MEDICAL (GENERAL) HISTORY Type Description Date Medical History anemia Medical History asthma Surgical History section x2 Surgical History hernia repair Hospitalization History surgeries Hospitalization History possible gallbladder problems Hospitalization History ER visit for UTI 09/12/15 Hospitalization History dizziness, blackout 12/28/2017
--- OUTSIDE RECORDS SUMMARY | 2019-10-07 05:26 | XMS REPORT ---
Author Author Jailene FARAH Organization [facility] Address [address] [place] [address] Care Team Providers Care Infusion Rn Name Role Phone GAGAN MACK Unavailable PROBLEMS Type Condition ICD9-CM Code ECH64-JL Code Onset Dates Condition S tatus SNOMED Code Problem Generalized anxiety disorder F41.1 A ctive [id number] Problem Iron deficiency anemia secondary to inadequate d ietary iron intake D50.8 Active 637894423 Problem Elevated erythrocyte sedimentation rate R70.0 Active [id number] Problem Primary insomnia F51.01 Active 397 2004 ALLERGIES No Information ENCOUNTERS Encounter Location Date Diagnosis [facility] [place] [address] [address] Jul, Visit for TB skin test Z11.[address] [address] Apr, [address] [address] Mar, Viral upper respiratory trac t infection J06.9 and Morbid obesity E66.[address] [address] Feb, [address] [address] Sep, Fever, unspecified fever cause R50.9 ; S ore throat J02.9 ; Cough R05 ; Influenza A J10.1 and BMI 40.0-44.9, adult Z68.41 [facility] [place] [id number] [place] [address] 15 Sep, 2018 Sore throat J02.9 ; Viral up per respiratory tract infection J06.9 and BMI 40.0-44.9, adult Z68.41 [place] [address] [address] 04 Jul, 2018 Bacterial conjunctivitis of right eye H1 0.9 and BMI 40.0-44.9, adult Z68.41 [place] [address] [address] 14 Jun, 2018 Viral URI J06.[address] [address] 07 Jun, 2018 Viral upper respiratory infe ction J06.9 ; Acute gastroenteritis K52.9 and BMI 40.0-44.9, adult Z68.41 [place] [address] [address] 10 May, 2018 Acute conjunctivitis of right eye, unspe cified acute conjunctivitis type H10.31 ; Unspecified mood [affective] disorder F39 ; Generalized anxiety disorder F41.1 and BMI 40.0-44.9, adult Z68.41 [place] [address] [address] May, [address] [address] Apr, Other specified abnormal findings of blo od chemistry R79.89 [place] [id number] [place] [address] Apr, Sore throat J02.9 ; Diarrhea , unspecified R19.7 and Vomiting, unspecified R11.10 [place] [address] [address] 11 Apr, 2018 Chronic fatigue R53.82 ; Nausea R11.0 an d Lyme disease A69.20 [place] [address] [address] Apr, [place] [address] [address] Mar, Generalized anxiety disorder F41.1 ; Uns pecified mood [affective] disorder F39 ; BMI 40.0-44.9, adult Z68.41 and Myalgia M79.1 [place] [address] [address] Feb, Elevated erythrocyte sedimentation rate R70.0 [place] [address] [address] Feb, Elevated erythrocyte sedimentation rate R70.0 [place] [address] [address] Feb, Unprotected sexual intercourse Z72.51 ; Pain in left knee M25.562 and Pain in joints of right hand M25.[address] [address] Feb, Pain in left knee M25.562 and Pain in thor ints of right hand M25.[address] [address] Feb, Unspecified mood [affective] disorder F3 9 ; Generalized anxiety disorder F41.1 ; Pain in joints of right hand M25.541 ; Pain in joints of left hand M25.542 ; Pain in right knee M25.561 ; Pain in left knee M25.562 and Morbid (severe) obesity due to excess calories E66.01 [facility] WALK IN [facility] [address] [facility] [id number] [address] [place] [address] Jan, Sore throat J02.9 ; Strep th roat J02.0 ; BMI 40.0-44.9, adult Z68.41 ; Dysuria R30.0 and Acute cystitis with hematuria N30.01 [place] [address] [address] Jan, [address] [address] December, Abnormal MRI of head R93.[address] [address] December, Subcutaneous nodules R22.9 ; Syncope, un specified syncope type R55 ; Abnormal MRI of head R93.0 and Iron deficiency anemia secondary to inadequate dietary iron intake D50.8 [place] [address] [address] December, [place] [address] [address] December, Iron deficiency anemia secondary to inad equate dietary iron intake D50.8 and BMI 40.0-44.9, adult Z68.41 [facility] [place] [address] [address] [place] [id number] [place] [address] Nov, Gastroenteritis K52.9 [place] [address] [address] Nov, [place] [address] [address] Nov, Bilateral hand swelling M79.89 ; Amenorr hea N91.2 ; Desire for Z31.9 ; Amenorrhea, unspecified N91.2 ; Bilateral swelling of feet M79.89 ; Rash R21 and Iron deficiency anemia, unspecified iron deficiency anemia type D50.9 [place] [address] [address] Nov, Bilateral hand swelling M79.89 ; Bilater al swelling of feet M79.89 and Rash R21 [place] [address] [address] Sep, Desire for Z31.9 and Amenorrhe a N91.2 [place] [address] [address] [place] [id number] [place] [address] Aug, Scabies B86 [place] [address] [address] Aug, Amenorrhea, unspecified N91.2 [place] [address] [address] Aug, Amenorrhea, unspecified N91.2 [facility] [address] [address] Aug, Amenorrhea N91.2 and Iron deficiency ane gerson, unspecified iron deficiency anemia type D50.9 [facility] [address] [place] [id number] [place] [address] Aug, Iron deficiency anemia secondary to inad equate dietary iron intake D50.8 ; Amenorrhea N91.2 ; Generalized anxiety disorder F41.1 ; Unspecified mood [affective] disorder F39 and Nausea R11.0 [facility] IN [facility] [address] [facility] [id number] [address] [place] [address] Jul, Non-intractable vomiting wit h nausea, unspecified vomiting type R11.2 and Pleurisy R09.1 [place] [address] [address] Jul, [place] [address] [address] Jun, Unspecified mood [affective] disorder F3 9 [place] [address] [address] Jun, Unspecified mood [affective] disorder F3 9 and Generalized anxiety disorder F41.1 [place] [address] [address] May, Bilious vomiting with nausea R11.14 [place] [address] [address] May, Unspecified mood [affective] disorder F3 9 ; Generalized anxiety disorder F41.1 and Iron deficiency anemia, unspecified iron deficiency anemia type D50.9 [place] [address] [address] Apr, Unspecified mood [affective] disorder F3 9 [place] [address] [address] Apr, Iron deficiency anemia, unspecified iron deficiency anemia type D50.9 [place] [address] [address] Apr, Iron deficiency anemia, unspecified iron deficiency anemia type D50.9 [facility] [address] [address] Apr, Unspecified mood [affective] disorder F3 9 [facility] [address] [address] Apr, Abnormal CBC R79.89 [facility] [address] [address] Apr, Abnormal CBC R79.89 [place] [address] [address] Apr, Encounter to establish care with pramod patrick Z76.89 ; Unspecified mood [affective] disorder F39 and Primary insomnia F51.01 [place] [address] [address] Mar, Unspecified mood [affective] disorder F3 9 and Generalized anxiety disorder F41.1 [facility] CARE [address] [facility] [id number] [address] [place] [address] Mar, Sore throat J02.9 and Strep pharyngitis J02.0 [facility] [address] [id number] Feb, Dental examination Z01.20 [facility] [address] [id number] Jan, Encounter for dental examination Z01.20 [facility] [address] [address] Nov, Fever, unspecified R50.9 and Acute nasop haryngitis J00 [facility] [address] [address] 18 Sep, 2015 Abdominal pain, acute, right upper quadr ant 789.01 [facility] [address] [address] 10 Sep, 2015 [place] [address] [address] Aug, Irritable bowel syndrome with diarrhea K 58.0 [place] [address] [address] Aug, Urinary tract infection, site not specif ied N39.0 and Back pain M54.9 [place] [address] [address] Mar, Abdominal pain, acute, right upper quadr ant 789.01 [place] [address] [address] Mar, [place] [address] [address] Mar, Nausea 787.02 and Abdominal pain, acute, right upper quadrant 789.01 [place] [address] [address] Mar, Nausea 787.02 and Abdominal pain 789.00 [place] [address] [address] Mar, Nausea 787.02 [place] [address] [address] Jan, Amenorrhea 626.0 [place] [address] [address] Jan, Amenorrhea 626.0 and Obesity 278.00 [place] [address] [address] December, Amenorrhea 626.0 and Cough 786.2 [place] [address] [address] Nov, [place] [address] [address] Nov, [place] [address] [address] May, [place] [address] [id number] [facility] [place] [address] May, [facility] [place] [facility] [address] [id number] [facility] [place] [address] Mar, [facility] [place] [facility] [address] [facility] [id number] [facility] [place] [address] Mar, [facility] [place] [facility] [address] [facility] [id number] [place] [address] Mar, [facility] [place] [facility] [address] [facility] [id number] [facility] [place] [address] Mar, [facility] [place] [facility] [address] [id number] [facility] [place] [address] Mar, [facility] [place] [facility] [address] [id number] [place] [address] Mar, [facility] [place] [facility] [address] [id number] [place] [address] Mar, [facility] [place] [facility] [address] [id number] [place] [address] Mar, [facility] [place] [facility] [address] [facility] [id number] [place] [address] Mar, [facility] [place] [facility] [address] [id number] [place] [address] Mar, [facility] [place] [facility] [address] [id number] [place] [address] Mar, [facility] [place] [facility] [address] [facility] [id number] [place] [address] Mar, [facility] [place] [facility] [address] [id number] [place] [address] Mar, [facility] [place] [facility] [address] [id number] [facility] [place] [address] Mar, [facility] [place] [facility] [address] [facility] [id number] [place] [address] Mar, [facility] [place] [facility] [address] [id number] [place] [address] Feb, [facility] [place] [facility] [address] [facility] [id number] [place] [address] Feb, 2013 [facility] [place] [facility] [address] [facility] [id number] [place] [address] Feb, 2013 [facility] [place] [facility] [address] [facility] [id number] [place] [address] Feb, 2013 [facility] [place] [facility] [address] [id number] [place] [address] Feb, 2013 [facility] [place] [facility] [address] [facility] [id number] [place] [address] Feb, 2013 [facility] [place] [facility] [address] [id number] [place] [address] Feb, 2013 [facility] [place] [facility] [address] [id number] [place] [address] Feb, 2013 [facility] [place] [facility] [address] [id number] [place] [address] Feb, 2013 [facility] [place] [facility] [address] [id number] [place] [address] Feb, 2013 [facility] [place] [facility] [address] [id number] [place] [address] Feb, 2013 [facility] [place] [facility] [address] [id number] [place] [address] Feb, 2013 [facility] [place] [facility] [address] [id number] [place] [address] Feb, 2013 [facility] [place] [facility] [address] [id number] [place] [address] Feb, 2013 [facility] [place] [facility] [address] [id number] [place] [address] Feb, 2013 [facility] [place] [facility] [address] [id number] [place] [address] Jan, [facility] [place] [facility] [address] [id number] [place] [address] Jan, [facility] [place] [facility] [address] [id number] [place] [address] Jan, [facility] [place] [facility] [address] [facility] [id number] [facility] [place] [address] Jan, [facility] [place] [facility] [address] [facility] [id number] [facility] [place] [address] Jan, [facility] [place] [facility] [address] [facility] [id number] [facility] [place] [address] Jan, [facility] [place] [facility] [address] [facility] [id number] [place] [address] Jan, [facility] [place] [facility] [address] [facility] [id number] [place] [address] Jan, [facility] [place] [facility] [address] [facility] [id number] [facility] [place] [address] Jan, [facility] [place] [facility] [address] [id number] [facility] [place] [address] Jan, [facility] [place] [facility] [address] [id number] [facility] [place] [address] Jan, [facility] [place] [facility] [address] [facility] [id number] [facility] [place] [address] Jan, [facility] [place] [facility] [address] [id number] [facility] [place] [address] Jan, [facility] [place] [facility] [address] [id number] [facility] [place] [address] December, [facility] [place] [facility] [address] [id number] [facility] [place] [address] December, [facility] [place] [facility] [address] [facility] [id number] [facility] [place] [address] December, [facility] [place] [facility] [address] [id number] [place] [address] December, [facility] [place] [facility] [address] [facility] [id number] [facility] [place] [address] December, [facility] [place] [facility] [address] [id number] [facility] [place] [address] December, [facility] [place] [facility] [address] [facility] [id number] [place] [address] December, [facility] [place] [facility] [address] [facility] [id number] [place] [address] December, [facility] [place] [facility] [address] [facility] [id number] [place] [address] December, [facility] [place] [facility] [address] [id number] [place] [address] December, [facility] [place] [facility] [address] [facility] [id number] [place] [address] December, [facility] [place] [facility] [address] [facility] [id number] [place] [address] December, [facility] [place] [facility] [address] [id number] [place] [address] Nov, [facility] [place] [facility] [address] [id number] [place] [address] Nov, [facility] [place] [facility] [address] [id number] [place] [address] Oct, [facility] [place] [facility] [address] [facility] [id number] [place] [address] Oct, [facility] [place] [facility] [address] [id number] [place] [address] Oct, [facility] [place] [facility] [address] [id number] [place] [address] Oct, [facility] [place] [facility] [address] [id number] [place] [address] Oct, [facility] [place] [facility] [address] [facility] [id number] [place] [address] Oct, [facility] [place] [facility] [address] [id number] [place] [address] Oct, [facility] [place] [facility] [address] [id number] [place] [address] Oct, [facility] [place] [facility] [address] [id number] [place] [address] Oct, [facility] [place] [facility] [address] [id number] [place] [address] 08 Oct, 2013 [facility] [place] [facility] [address] [id number] [place] [address] Oct, [facility] [place] [facility] [address] [id number] [place] [address] Oct, 2013 [facility] [place] [facility] [address] [id number] [place] [address] Oct, [facility] [place] [facility] [address] [id number] [place] [address] Oct, [facility] [place] [facility] [address] [id number] [place] [address] Oct, [facility] [place] [facility] [address] [id number] [place] [address] Oct, [facility] [place] [facility] [address] [id number] [place] [address] Oct, [facility] [place] [facility] [address] [id number] [place] [address] Sep, [facility] [place] [facility] [address] [id number] [place] [address] Sep, [facility] [place] [facility] [address] [id number] [place] [address] Sep, [facility] [place] [facility] [address] [id number] [place] [address] Jun, [facility] [place] [facility] [address] [id number] [place] [address] Jun, [facility] [place] [facility] [address] [id number] [place] [address] Jun, [facility] [place] [facility] [address] [id number] [place] [address] Jun, [facility] [place] [facility] [address] [id number] [place] [address] Jun, [facility] [place] [facility] [address] [id number] [place] [address] Jun, [facility] [place] [facility] [address] [id number] [place] [address] May, [facility] [place] [facility] [address] [id number] [place] [address] May, [facility] [place] [facility] [address] [id number] [place] [address] May, [facility] [address] [id number] [place] [address] 15 May, 2013 [facility] [address] [id number] [place] [address] May, [facility] [address] [id number] [place] [address] May, [facility] [address] [id number] [place] [address] 26 Apr, 2012 [facility] [address] [id number] [place] [address] 24 Sep, 2012 [facility] [address] [id number] [place] [address] 23 Sep, 2012 [facility] [address] [id number] [place] [address] 20 Sep, 2012 [facility] [address] [id number] [place] [address] 19 Sep, 2012 [facility] [address] [id number] [place] [address] 17 Sep, 2012 [facility] [address] [id number] [place] [address] 13 Sep, 2012 [facility] [address] [id number] [place] [address] 11 Sep, 2012 [facility] [address] [id number] [place] [address] 09 Sep, 2012 [facility] [address] [id number] [place] [address] 05 Sep, 2012 [facility] [address] [id number] [place] [address] Mar, [facility] [address] [id number] [place] [address] Nov, [facility] [address] [id number] [place] [address] Oct, [facility] [address] [id number] [place] [address] Oct, [facility] [address] [id number] [place] [address] Sep, [facility] [address] [id number] [place] [address] May, [facility] [address] [id number] [place] [address] May, [facility] [id number] [place] [address] May, [facility] [id number] [place] [address] May, [facility] [address] [id number] [place] [address] Apr, [facility] [id number] [place] [address] Apr, [facility] [id number] [place] [address] Mar, [facility] [address] [id number] [place] [address] Feb, [facility] [address] [id number] [place] [address] Jul, [facility] [id number] [place] [address] Jul, [facility] [address] [id number] [place] [address] Jul, [facility] [id number] [place] [address] December, [facility] [address] [facility] [id number] [place] [address] December, [facility] [address] [id number] [place] [id number] Oct, IMMUNIZATIONS No Known Immunizations SOCIAL HISTORY [...]
--- OUTSIDE RECORDS SUMMARY | 2019-10-07 05:27 | XMS REPORT ---
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 Name Role Phone NEO Miranda Unavailable PROBLEMS Type Condition ICD9-CM Code [id number] Code Onset Dates Condition S tatus SNOMED Code Problem Generalized anxiety disorder F41.1 A ctive [id number] Problem Iron deficiency anemia secondary to inadequate d ietary iron intake D50.8 Active [id number] Problem Elevated erythrocyte sedimentation rate R70.0 Active 043344805 Problem Primary insomnia F51.01 Active 397 2004 ALLERGIES No Information ENCOUNTERS Encounter Location Date Diagnosis [facility] [id number] [address] [place] [address] Mar, Viral upper respiratory trac t infection J06.9 and Morbid obesity E66.01 [facility] [address] [id number] [address] [place] [address] Feb, [facility] [id number] [place] [address] 25 Sep, 2018 Fever, unspecified fever cau se R50.9 ; Sore throat J02.9 ; Cough R05 ; Influenza A J10.1 and BMI 40.0-44.9, adult Z68.41 [facility] [address] [id number] [address] [place] [address] 15 Sep, 2018 Sore throat J02.9 ; Viral up per respiratory tract infection J06.9 and BMI 40.0-44.9, adult Z68.41 [facility] [address] [id number] [address] [place] [address] 04 Jul, 2018 Bacterial conjunctivitis of right eye H10.9 and BMI 40.0-44.9, adult Z68.41 [place] [address] [address] 14 Jun, 2018 Viral URI J06.9 [facility] [place] [address] [address] 07 Jun, 2018 Viral upper respiratory infe ction J06.9 ; Acute gastroenteritis K52.9 and BMI 40.0-44.9, adult Z68.41 [place] [address] [address] 10 May, 2018 Acute conjunctivitis of righ t eye, unspecified acute conjunctivitis type H10.31 ; Unspecified mood [affective] disorder F39 ; Generalized anxiety disorder F41.1 and BMI 40.0-44.9, adult Z68.[address] [address] May, [address] [address] Apr, Other specified abnormal fin dings of blood chemistry R79.89 [facility] [address] [address] Apr, Sore throat J02.9 ; Diarrhea , unspecified R19.7 and Vomiting, unspecified R11.[address] [address] Apr, Chronic fatigue R53.82 ; Rey sea R11.0 and Lyme disease A69.[address] [address] Apr, [address] [address] Mar, Generalized anxiety disorder F41.1 ; Unspecified mood [affective] disorder F39 ; BMI 40.0-44.9, adult Z68.41 and Myalgia M79.1 [place] [address] [place] [address] Feb, Elevated erythrocyte sedimen tation rate R70.0 [facility] [address] [place] [address] Feb, Elevated erythrocyte sedimen tation rate R70.0 [facility] [address] [facility] [id number] [address] [place] [address] Feb, Unprotected sexual intercour se Z72.51 ; Pain in left knee M25.562 and Pain in joints of right hand M25.541 [facility] [address] [place] [address] Feb, Pain in left knee M25.562 an d Pain in joints of right hand M25.541 [place] [address] [place] [id number] [place] [address] Feb, Unspecified mood [affective] disorder F39 ; Generalized anxiety disorder F41.1 ; Pain in joints of right hand M25.541 ; Pain in joints of left hand M25.542 ; Pain in right knee M25.561 ; Pain in left knee M25.562 and Morbid (severe) obesity due to excess calories E66.01 [facility] [address] [id number] [address] [place] [address] Jan, Sore throat J02.9 ; Strep th roat J02.0 ; BMI 40.0-44.9, adult Z68.41 ; Dysuria R30.0 and Acute cystitis with hematuria N30.01 [facility] [address] [facility] [id number] [address] [place] [address] Jan, [facility] [address] [id number] [place] [address] December, Abnormal MRI of head R93.0 [facility] [address] [id number] [address] [place] [address] December, Subcutaneous nodules R22.9 ; Syncope, unspecified syncope type R55 ; Abnormal MRI of head R93.0 and Iron deficiency anemia secondary to inadequate dietary iron intake D50.8 [place] [address] [facility] [id number] [address] [place] [address] December, [place] [address] [place] [id number] [place] [address] December, Iron deficiency anemia secon chuck to inadequate dietary iron intake D50.8 and BMI 40.0-44.9, adult Z68.41 [facility] [id number] [place] [address] Nov, Gastroenteritis K52.9 [place] [address] [address] Nov, [place] [address] [address] Nov, Bilateral hand swelling M79. 89 ; Amenorrhea N91.2 ; Desire for Z31.9 ; Amenorrhea, unspecified N91.2 ; Bilateral swelling of feet M79.89 ; Rash R21 and Iron deficiency anemia, unspecified iron deficiency anemia type D50.9 [place] [address] [place] [id number] [place] [address] Nov, Bilateral hand swelling M79. 89 ; Bilateral swelling of feet M79.89 and Rash R21 [place] [address] [address] Sep, Desire for Z31.9 a nd Amenorrhea N91.2 [facility] [address] [id number] [address] [place] [address] Aug, Scabies B86 [place] [address] [place] [id number] [address] [place] [address] Aug, Amenorrhea, unspecified N91. 2 [place] [address] [place] [id number] [place] [address] Aug, Amenorrhea, unspecified N91. 2 [facility] [address] [facility] [id number] [address] [place] [address] 08 Aug, 2017 Amenorrhea N91.2 and Iron de ficiency anemia, unspecified iron deficiency anemia type D50.9 [facility] [address] [facility] [id number] [address] [place] [address] Aug, Iron deficiency anemia secon chuck to inadequate dietary iron intake D50.8 ; Amenorrhea N91.2 ; Generalized anxiety disorder F41.1 ; Unspecified mood [affective] disorder F39 and Nausea R11.0 [facility] [address] [facility] [id number] [address] [place] [address] Jul, Non-intractable vomiting wit h nausea, unspecified vomiting type R11.2 and Pleurisy R09.1 [facility] [address] [id number] [address] [place] [address] Jul, [facility] [address] [place] [place] [id number] [address] [place] [address] Jun, Unspecified mood [affective] disorder F39 [facility] [id number] [address] [place] [address] Jun, Unspecified mood [affective] disorder F39 and Generalized anxiety disorder F41.1 [facility] [address] [id number] [address] [place] [address] May, Bilious vomiting with nausea R11.14 [facility] [address] [id number] [address] [place] [address] May, Unspecified mood [affective] disorder F39 ; Generalized anxiety disorder F41.1 and Iron deficiency anemia, unspecified iron deficiency anemia type D50.9 [facility] [address] [facility] [id number] [address] [place] [address] Apr, Unspecified mood [affective] disorder F39 [facility] [address] [id number] [address] [place] [address] Apr, Iron deficiency anemia, unsp ecified iron deficiency anemia type D50.9 [facility] [address] [facility] [id number] [address] [place] [address] Apr, Iron deficiency anemia, unsp ecified iron deficiency anemia type D50.9 [facility] [address] [facility] [id number] [address] [place] [address] Apr, Unspecified mood [affective] disorder F39 [facility] [address] [facility] [id number] [address] [place] [address] Apr, Abnormal CBC R79.89 [place] [address] [address] [facility] [id number] [address] [place] [address] Apr, Abnormal CBC R79.89 [place] [address] [facility] [id number] [address] [place] [address] Apr, Encounter to establish care with new doctor Z76.89 ; Unspecified mood [affective] disorder F39 and Primary insomnia F51.01 [facility] [address] [place] [address] Mar, Unspecified mood [affective] disorder F39 and Generalized anxiety disorder F41.1 [facility] [id number] [address] [place] [address] Mar, Sore throat J02.9 and Strep pharyngitis J02.0 [facility] [address] [place] [address] [id number] [address] [place] [id number] Feb, Dental examination Z01.20 [facility] [address] [place] [id number] Jan, Encounter for dental examina tion Z01.20 [facility] [address] [id number] [address] [place] [address] Nov, Fever, unspecified R50.9 and Acute nasopharyngitis J00 [facility] [address] [place] [id number] [address] [place] [address] 18 Sep, 2015 Abdominal pain, acute, right upper quadrant 789.01 [facility] [address] [facility] [id number] [address] [place] [address] Sep, [facility] [address] [place] [id number] [place] [address] Aug, Irritable bowel syndrome wit h diarrhea K58.0 [facility] [address] [id number] [place] [address] Aug, Urinary tract infection, sit e not specified N39.0 and Back pain M54.9 [facility] [address] [id number] [place] [address] Mar, Abdominal pain, acute, right upper quadrant 789.01 [facility] [address] [place] [id number] [place] [address] Mar, [facility] [address] [address] Mar, Nausea 787.02 and Abdominal pain, acute, right upper quadrant 789.01 [facility] [address] [address] Mar, Nausea 787.02 and Abdominal pain 789.00 [facility] [address] [place] [id number] [address] [place] [address] Mar, Nausea 787.02 [facility] [address] [address] Jan, Amenorrhea 626.0 [facility] [address] [place] [id number] [place] [address] Jan, Amenorrhea 626.0 and Obesity 278.00 [facility] [address] [place] [id number] [address] [place] [address] December, Amenorrhea 626.0 and Cough 7 86.2 [facility] [address] [place] [id number] [address] [place] [address] Nov, [facility] [place] [facility] [address] [id number] [facility] [place] [address] Nov, [facility] [address] [id number] [facility] [place] [address] May, [facility] [place] [facility] [address] [id number] [facility] [place] [address] May, [facility] [place] [facility] [address] [id number] [address] [place] [address], [place] [address] Mar, [facility] [place] [facility] [address] [id number] [address] [place] [address], [place] [address] Mar, [facility] [place] [facility] [address] [id number] [address] [place] [address], [place] [address] Mar, [facility] [place] [facility] [address] [id number] [address] [place] [address], [place] [address] Mar, [facility] [place] [facility] [address] [id number] [address] [place] [address], [place] [address] Mar, [facility] [address] [id number] [address] [place] [address], [place] [address] Mar, [facility] [place] [facility] [address] [id number] [address] [place] [address], [place] [address] Mar, [facility] [place] [facility] [address] [id number] [address] [place] [address], [place] [address] Mar, [facility] [place] [facility] [address] [id number] [address] [place] [address], [place] [address] Mar, [facility] [place] [facility] [address] [id number] [address] [place] [address], [place] [address] Mar, [facility] [place] [facility] [address] [id number] [address] [place] [address], [place] [address] Mar, [facility] [place] [facility] [address] [id number] [address] [place] [address], [place] [address] Mar, [facility] [place] [facility] [address] [id number] [address] [place] [address], [place] [address] Mar, [facility] [place] [facility] [address] [id number] [facility] [place] [address] Mar, [facility] [place] [facility] [address] [id number] [address] [place] [address], [place] [address] Mar, [facility] [place] [facility] [address] [id number] [facility] [place] [address] Feb, [facility] [place] [facility] [address] [id number] [address] [place] [address], [place] [address] Feb, [facility] [place] [facility] [address] [id number] [address] [place] [address], [place] [address] Feb, [facility] [place] [facility] [address] [id number] [address] [place] [address], [place] [address] Feb, [facility] [place] [facility] [address] [id number] [address] [place] [address], [place] [address] Feb, [facility] [place] [facility] [address] [id number] [address] [place] [address], [place] [address] Feb, [facility] [place] [facility] [address] [id number] [address] [place] [address], [place] [address] Feb, [facility] [place] [facility] [address] [id number] [address] [place] [address], [place] [address] Feb, [facility] [place] [facility] [address] [id number] [address] [place] [address], [place] [address] Feb, [facility] [place] [facility] [address] [id number] [address] [place] [address], [place] [address] Feb, [facility] [place] [facility] [address] [id number] [address] [place] [address], [place] [address] Feb, [facility] [place] [facility] [address] [id number] [address] [place] [address], [place] [address] Feb, [facility] [place] [facility] [address] [id number] [address] [place] [address], [place] [address] Feb, [facility] [place] [facility] [address] [id number] [facility] [place] [address] 07 Feb, 2014 [facility] [address] [id number] [address] [place] [address], [place] [address] Feb, [facility] [place] [facility] [address] [id number] [facility] [place] [address] Jan, [facility] [place] [facility] [address] [id number] [address] [place] [address], [place] [address] Jan, [facility] [place] [facility] [address] [id number] [address] [place] [address], [place] [address] Jan, [facility] [place] [facility] [address] [id number] [address] [place] [address], [place] [address] Jan, [facility] [place] [facility] [address] [id number] [address] [place] [address], [place] [address] Jan, [facility] [address] [id number] [address] [place] [address], [place] [address] Jan, [facility] [place] [facility] [address] [id number] [address] [place] [address], [place] [address] Jan, [facility] [place] [facility] [address] [id number] [address] [place] [address], [place] [address] Jan, [facility] [place] [facility] [address] [id number] [address] [place] [address], [place] [address] Jan, [facility] [place] [facility] [address] [id number] [address] [place] [address], [place] [address] Jan, [facility] [place] [facility] [address] [id number] [address] [place] [address], [place] [address] Jan, [facility] [place] [facility] [address] [id number] [address] [place] [address], [place] [address] Jan, [facility] [place] [facility] [address] [id number] [address] [place] [address], [place] [address] Jan, [facility] [place] [facility] [address] [id number] [address] [place] [address], [place] [address] December, [facility] [place] [facility] [address] [id number] [facility] [place] [address] December, [facility] [address] [id number] [facility] [place] [address] December, [facility] [address] [id number] [facility] [place] [address] December, [facility] [address] [id number] [address] [place] [address], [place] [address] December, [facility] [address] [id number] [address] [place] [address], [place] [address] December, [facility] [address] [id number] [address] [place] [address], [place] [address] December, [facility] [address] [id number] [address] [place] [address], [place] [address] December, [facility] [address] [id number] [address] [place] [address], [place] [address] December, [facility] [address] [id number] [address] [place] [address], [place] [address] December, [facility] [address] [id number] [address] [place] [address], [place] [address] December, [facility] [address] [id number] [address] [place] [address], [place] [address] December, [facility] [address] [id number] [address] [place] [address], [place] [address] Nov, [facility] [address] [id number] [address] [place] [address], [place] [address] Nov, [facility] [address] [id number] [address] [place] [address], [place] [address] Oct, [facility] [address] [id number] [address] [place] [address], [place] [address] Oct, [facility] [address] [id number] [address] [place] [address], [place] [address] 20 Oct, 2013 [facility] [place] [facility] [address] [id number] [facility] [place] [address] 20 Oct, 2013 [facility] [place] [facility] [address] [id number] [address] [place] [address], [place] [address] 19 Oct, 2013 [facility] [place] [facility] [address] [id number] [address] [place] [address], [place] [address] 19 Oct, 2013 [facility] [place] [facility] [address] [id number] [address] [place] [address], [place] [address] 19 Oct, 2013 [facility] [place] [facility] [address] [id number] [address] [place] [address], [place] [address] 19 Oct, 2013 [facility] [place] [facility] [address] [id number] [address] [place] [address], [place] [address] 18 Oct, 2013 [facility] [place] [facility] [address] [id number] [address] [place] [address], [place] [address] 08 Oct, 2013 [facility] [place] [facility] [address] [id number] [address] [place] [address], [place] [address] 07 Oct, 2013 [facility] [place] [facility] [address] [id number] [address] [place] [address], [place] [address] 06 Oct, 2013 [facility] [place] [facility] [address] [id number] [address] [place] [address], [place] [id number] 06 Oct, 2013 [facility] [address] [id number] [address] [place] [address], [place] [id number] 05 Oct, 2013 [facility] [address] [id number] [address] [place] [address], [place] [id number] 05 Oct, 2013 [facility] [address] [id number] [address] [place] [address], [place] [id number] 05 Oct, 2013 [facility] [address] [id number] [address] [place] [address], [place] [id number] 05 Oct, 2013 [facility] [address] [id number] [address] [place] [address], [place] [address] Sep, [facility] [address] [id number] [address] [place] [address], [place] [id number] Sep, [facility] [address] [id number] [address] [place] [address], [place] [id number] Sep, [facility] [address] [id number] [address] [place] [address], [place] [id number] Jun, [facility] [address] [id number] [address] [place] [address], [place] [id number] Jun, [facility] [address] [id number] [address] [place] [address], [place] [address] Jun, [facility] [address] [id number] [address] [place] [address], [place] [address] Jun, [facility] [address] [id number] [address] [place] [address], [place] [id number] Jun, [facility] [address] [id number] [address] [place] [address], [place] [id number] Jun, [facility] [address] [id number] [address] [place] [address], [place] [id number] May, [facility] [address] [id number] [address] [place] [address], [place] [address] May, [facility] [address] [id number] [address] [place] [address], [place] [address] May, [facility] [address] [id number] [address] [place] [address], [place] [address] May, [facility] [address] [id number] [address] [place] [address], [place] [id number] May, [facility] [address] [id number] [address] [place] [address], [place] [address] May, [facility] [address] [id number] [address] [place] [address], [place] [id number] Apr, [facility] [address] [id number] [address] [place] [address], [place] [id number] Apr, [facility] [address] [id number] [address] [place] [address], [place] [id number] 23 Apr, 2012 [facility] [address] [id number] [address] [place] [address], [place] [id number] 20 Apr, 2012 [facility] [address] [id number] [address] [place] [address], [place] [address] 19 Apr, 2012 [facility] [address] [id number] [address] [place] [address], [place] [id number] 17 Apr, 2012 [facility] [address] [id number] [address] [place] [address], [place] [address] 13 Apr, 2012 [facility] [address] [id number] [address] [place] [address], [place] [address] 11 Apr, 2013 [facility] [address] [id number] [address] [place] [address], [place] [address] 09 Apr, 2013 [facility] [address] [id number] [address] [place] [address], [place] [id number] 05 Apr, 2013 [facility] [address] [id number] [address] [place] [place] [address] [id number] Mar, [facility] [address] [id number] [address] [place] [address], [place] [id number] Nov, [facility] [address] [id number] [address] [place] [address], [place] [id number] Oct, [facility] [address] [id number] [address] [place] [address], [place] [phone] Oct, [facility] [address] [id number] [address] [place] [address], [place] [phone] Sep, [facility] [address] [id number] [address] [place] [address], [place] [id number] May, [facility] [address] [id number] [address] [place] [address], [place] [address] May, [facility] [address] [id number] [address] [place] [id number] 11 May, 2012 [facility] [address] [id number] [address] [place] [id number] May, [facility] [address] [id number] [address] [place] [id number] 24 Apr, 2012 [facility] [address] [id number] [address] [place] [id number] Apr, [facility] [address] [id number] [address] [place] [phone] Mar, [facility] [address] [id number] [address] [place] [id number] Feb, [facility] [address] [id number] [address] [place] [id number] Jul, [facility] [address] [id number] [address] [place] [id number] Jul, [facility] [address] [id number] [address] [place] [id number] Jul, [facility] [address] [id number] [address] [place] [id number] December, [facility] [address] [id number] [address] [place] [id number] December, [facility] [address] [id number] [address] [place] [id number] Oct, IMMUNIZATIONS No Known Immunizations SOCIAL HISTORY Never Assessed REASON FOR VISIT PLAN OF CARE VITAL SIGNS Height 68 in 2014-05-28 Weight 244.38 lbs 2014-05-28 Temperature 98.7 degrees Fahrenheit 2014-05-28 Heart Rate 88 bpm 2014-05-28 Respiratory Rate 20 2014-05-28 Blood pressure systolic 132 mmHg 2014-05-28 Blood pressure diastolic 74 mmHg 2014-05-28 MEDICATIONS No Known Medications RESULTS No Results [...]
--- OUTSIDE RECORDS SUMMARY | 2019-10-07 05:27 | XMS REPORT ---
Author Author Jailene RICHTER Organization [facility] Address [address] [place] [address] Care Team Providers Care Die Operator Name Role Phone MILY RICHTER Unavailable PROBLEMS Type Condition ICD9-CM Code [id number] Code Onset Dates Condition S tatus SNOMED Code Problem Generalized anxiety disorder F41.1 A ctive [id number] Problem Iron deficiency anemia secondary to inadequate d ietary iron intake D50.8 Active 132979398 Problem Elevated erythrocyte sedimentation rate R70.0 Active [id number] Problem Primary insomnia F51.01 Active 397 2004 ALLERGIES No Information ENCOUNTERS Encounter Location Date Diagnosis [facility] [address] [address] Mar, Viral upper respiratory trac t infection J06.9 and Morbid obesity E66.01 [facility] [address] [address] Feb, [facility] [address] [place] [place] [id number] [address] [place] [id number] 25 Sep, 2018 Fever, unspecified fever cau se R50.9 ; Sore throat J02.9 ; Cough R05 ; Influenza A J10.1 and BMI 40.0-44.9, adult Z68.41 [facility] [address] [id number] [address] [place] [id number] 15 Sep, 2018 Sore throat J02.9 ; Viral up per respiratory tract infection J06.9 and BMI 40.0-44.9, adult Z68.41 [facility] [address] [place] [address] [id number] [address] [place] [address] 04 Jul, 2018 Bacterial conjunctivitis of right eye H10.9 and BMI 40.0-44.9, adult Z68.41 [place] [address] [address] 14 Jun, 2018 Viral URI J06.9 [facility] [place] [address] [address] 07 Jun, 2018 Viral upper respiratory infe ction J06.9 ; Acute gastroenteritis K52.9 and BMI 40.0-44.9, adult Z68.41 [place] [address] [address] 10 May, 2018 Acute conjunctivitis of righ t eye, unspecified acute conjunctivitis type H10.31 ; Unspecified mood [affective] disorder F39 ; Generalized anxiety disorder F41.1 and BMI 40.0-44.9, adult Z68.[address] [address] 08 May, [address] [address] Apr, Other specified abnormal fin dings of blood chemistry R79.89 [facility] [address] [address] Apr, Sore throat J02.9 ; Diarrhea , unspecified R19.7 and Vomiting, unspecified R11.[address] [address] Apr, Chronic fatigue R53.82 ; Rey sea R11.0 and Lyme disease A69.20 [place] [address] [address] Apr, [address] [address] Mar, Generalized anxiety disorder F41.1 ; Unspecified mood [affective] disorder F39 ; BMI 40.0-44.9, adult Z68.41 and Myalgia M79.[address] [place] [address] Feb, Elevated erythrocyte sedimen tation rate R70.0 [facility] [address] [id number] [address] [place] [address] Feb, Elevated erythrocyte sedimen tation rate R70.0 [facility] [address] [id number] [address] [place] [address] Feb, Unprotected sexual intercour se Z72.51 ; Pain in left knee M25.562 and Pain in joints of right hand M25.541 [facility] [address] [id number] [address] [place] [address] Feb, Pain in left knee M25.562 an d Pain in joints of right hand M25.541 [place] [address] [place] [id number] [place] [address] Feb, Unspecified mood [affective] disorder F39 ; Generalized anxiety disorder F41.1 ; Pain in joints of right hand M25.541 ; Pain in joints of left hand M25.542 ; Pain in right knee M25.561 ; Pain in left knee M25.562 and Morbid (severe) obesity due to excess calories E66.01 [facility] [address] [id number] [address] [place] [address] Jan, Sore throat J02.9 ; Strep th roat J02.0 ; BMI 40.0-44.9, adult Z68.41 ; Dysuria R30.0 and Acute cystitis with hematuria N30.01 [facility] [address] [facility] [id number] [address] [place] [address] Jan, [facility] [address] [id number] [address] [place] [address] December, Abnormal MRI of head R93.0 [facility] [address] [id number] [address] [place] [address] December, Subcutaneous nodules R22.9 ; Syncope, unspecified syncope type R55 ; Abnormal MRI of head R93.0 and Iron deficiency anemia secondary to inadequate dietary iron intake D50.8 [facility] [address] [facility] [id number] [address] [place] [address] December, [place] [address] [place] [id number] [address] [place] [address] December, Iron deficiency anemia secon chuck to inadequate dietary iron intake D50.8 and BMI 40.0-44.9, adult Z68.41 [facility] [address] [id number] [address] [place] [address] Nov, Gastroenteritis K52.9 [place] [address] [address] Nov, [place] [address] [address] Nov, Bilateral hand swelling M79. 89 ; Amenorrhea N91.2 ; Desire for Z31.9 ; Amenorrhea, unspecified N91.2 ; Bilateral swelling of feet M79.89 ; Rash R21 and Iron deficiency anemia, unspecified iron deficiency anemia type D50.9 [place] [address] [place] [id number] [place] [address] Nov, Bilateral hand swelling M79. 89 ; Bilateral swelling of feet M79.89 and Rash R21 [place] [address] [address] Sep, Desire for Z31.9 a nd Amenorrhea N91.2 [facility] [address] [facility] [id number] [address] [place] [address] Aug, Scabies B86 [place] [address] [place] [id number] [place] [address] Aug, Amenorrhea, unspecified N91. 2 [place] [address] [address] Aug, Amenorrhea, unspecified N91. 2 [place] [address] [facility] [id number] [address] [place] [address] Aug, Amenorrhea N91.2 and Iron de ficiency anemia, unspecified iron deficiency anemia type D50.9 [facility] [address] [facility] [id number] [address] [place] [address] Aug, Iron deficiency anemia secon chuck to inadequate dietary iron intake D50.8 ; Amenorrhea N91.2 ; Generalized anxiety disorder F41.1 ; Unspecified mood [affective] disorder F39 and Nausea R11.0 [facility] [address] [facility] [id number] [address] [place] [address] Jul, Non-intractable vomiting wit h nausea, unspecified vomiting type R11.2 and Pleurisy R09.1 [facility] [address] [place] [id number] [address] [place] [address] Jul, [facility] [address] [place] [id number] [address] [place] [address] Jun, Unspecified mood [affective] disorder F39 [place] [address] [place] [id number] [address] [place] [address] Jun, Unspecified mood [affective] disorder F39 and Generalized anxiety disorder F41.1 [facility] [address] [place] [id number] [address] [place] [address] May, Bilious vomiting with nausea R11.14 [facility] [address] [facility] [id number] [address] [place] [address] May, Unspecified mood [affective] disorder F39 ; Generalized anxiety disorder F41.1 and Iron deficiency anemia, unspecified iron deficiency anemia type D50.9 [facility] [address] [facility] [id number] [address] [place] [address] Apr, Unspecified mood [affective] disorder F39 [facility] [address] [facility] [id number] [address] [place] [address] Apr, Iron deficiency anemia, unsp ecified iron deficiency anemia type D50.9 [facility] [address] [facility] [id number] [address] [place] [address] Apr, Iron deficiency anemia, unsp ecified iron deficiency anemia type D50.9 [facility] [address] [facility] [id number] [address] [place] [address] 18 Apr, 2017 Unspecified mood [affective] disorder F39 [facility] [address] [facility] [id number] [address] [place] [address] 07 Apr, 2017 Abnormal CBC R79.89 [facility] [address] [facility] [id number] [address] [place] [address] 07 Apr, 2017 Abnormal CBC R79.89 [place] [address] [place] [id number] [address] [place] [address] 05 Apr, 2017 Encounter to establish care with new doctor Z76.89 ; Unspecified mood [affective] disorder F39 and Primary insomnia F51.01 [facility] [id number] [place] [address] Mar, Unspecified mood [affective] disorder F39 and Generalized anxiety disorder F41.1 [facility] [address] [address] [id number] [address] [place] [address] Mar, Sore throat J02.9 and Strep pharyngitis J02.0 [facility] [address] [id number] [address] [place] [id number] Feb, Dental examination Z01.20 [facility] [id number] [place] [id number] Jan, Encounter for dental examina tion Z01.20 [facility] [address] [place] [id number] [address] [place] [address] Nov, Fever, unspecified R50.9 and Acute nasopharyngitis J00 [facility] [address] [place] [id number] [address] [place] [address] 18 Sep, 2015 Abdominal pain, acute, right upper quadrant 789.01 [facility] [address] [facility] [id number] [address] [place] [address] 10 Sep, 2015 [facility] [address] [place] [id number] [address] [place] [address] Aug, Irritable bowel syndrome wit h diarrhea K58.0 [facility] [address] [place] [address] [id number] [address] [place] [address] Aug, Urinary tract infection, sit e not specified N39.0 and Back pain M54.9 [facility] [address] [place] [id number] [address] [place] [address] Mar, Abdominal pain, acute, right upper quadrant 789.01 [facility] [address] [place] [id number] [address] [place] [address] Mar, [facility] [address] [place] [id number] [address] [place] [address] Mar, Nausea 787.02 and Abdominal pain, acute, right upper quadrant 789.01 [facility] [address] [place] [id number] [address] [place] [address] Mar, Nausea 787.02 and Abdominal pain 789.00 [facility] [address] [place] [id number] [address] [place] [address] Mar, Nausea 787.02 [facility] [address] [place] [id number] [address] [place] [address] Jan, Amenorrhea 626.0 [facility] [address] [place] [id number] [address] [place] [address] Jan, Amenorrhea 626.0 and Obesity 278.00 [facility] [address] [place] [id number] [address] [place] [address] December, Amenorrhea 626.0 and Cough 7 86.2 [facility] [address] [place] [id number] [address] [place] [address] Nov, [facility] [address] [id number] [facility] [address] Nov, [facility] [address] [id number] [address] [place] [address], [place] [address] May, [facility] [address] [id number] [address] [place] [address], [place] [address] May, [facility] [address] [id number] [address] [place] [address], [place] [address] Mar, [facility] [address] [id number] [address] [place] [address], [place] [address] Mar, [facility] [address] [id number] [address] [place] [address], [place] [address] Mar, [facility] [address] [id number] [address] [place] [address], [place] [address] Mar, [facility] [address] [id number] [address] [place] [address], [place] [address] Mar, [facility] [address] [id number] [address] [place] [address], [place] [address] Mar, [facility] [address] [id number] [address] [place] [address], [place] [address] Mar, [facility] [address] [id number] [address] [place] [address], [place] [address] Mar, [facility] [address] [id number] [address] [place] [address], [place] [address] Mar, [facility] [address] [id number] [address] [place] [address], [place] [address] Mar, [facility] [address] [id number] [address] [place] [address], [place] [address] Mar, [facility] [address] [id number] [address] [place] [address], [place] [address] Mar, [facility] [address] [id number] [address] [place] [address], [place] [address] Mar, [facility] [address] [id number] [facility] [address] Mar, [facility] [address] [id number] [address] [place] [address], [place] [address] Mar, [facility] [address] [id number] [address] [place] [address], [place] [address] Feb, [facility] [address] [id number] [address] [place] [address], [place] [address] Feb, [facility] [address] [id number] [address] [place] [address], [place] [address] Feb, [facility] [address] [id number] [address] [place] [address], [place] [address] Feb, [facility] [address] [id number] [address] [place] [address], [place] [address] Feb, [facility] [address] [id number] [address] [place] [address], [place] [address] Feb, [facility] [address] [id number] [address] [place] [address], [place] [address] Feb, [facility] [address] [id number] [address] [place] [address], [place] [address] Feb, [facility] [address] [id number] [address] [place] [address], [place] [address] Feb, [facility] [address] [id number] [address] [place] [address], [place] [address] Feb, [facility] [address] [id number] [address] [place] [address], [place] [address] Feb, [facility] [address] [id number] [address] [place] [address], [place] [address] Feb, [facility] [address] [id number] [address] [place] [address], [place] [address] Feb, [facility] [address] [id number] [address] [place] [address], [place] [address] 07 Feb, 2014 [facility] [address] [id number] [facility] [address] Feb, [facility] [address] [id number] [address] [place] [address], [place] [address] Jan, [facility] [address] [id number] [address] [place] [address], [place] [address] Jan, [facility] [address] [id number] [address] [place] [address], [place] [address] Jan, [facility] [address] [id number] [address] [place] [address], [place] [address] Jan, [facility] [address] [id number] [address] [place] [address], [place] [address] Jan, [facility] [address] [id number] [address] [place] [address], [place] [address] Jan, [facility] [address] [id number] [address] [place] [address], [place] [address] Jan, [facility] [address] [id number] [address] [place] [address], [place] [address] Jan, [facility] [address] [id number] [address] [place] [address], [place] [address] Jan, [facility] [address] [id number] [address] [place] [address], [place] [address] Jan, [facility] [address] [id number] [address] [place] [address], [place] [address] Jan, [facility] [address] [id number] [address] [place] [address], [place] [address] Jan, [facility] [address] [id number] [address] [place] [address], [place] [address] Jan, [facility] [address] [id number] [address] [place] [address], [place] [address] December, [facility] [address] [id number] [facility] [address] December, [facility] [address] [id number] [address] [place] [address], [place] [address] December, [facility] [address] [id number] [address] [place] [address], [place] [address] December, [facility] [address] [id number] [address] [place] [address], [place] [address] December, [facility] [address] [id number] [address] [place] [address], [place] [address] December, [facility] [address] [id number] [address] [place] [address], [place] [address] December, [facility] [address] [id number] [address] [place] [address], [place] [address] December, [facility] [address] [id number] [address] [place] [address], [place] [address] December, [facility] [address] [id number] [address] [place] [address], [place] [address] December, [facility] [address] [id number] [address] [place] [address], [place] [address] December, [facility] [address] [id number] [address] [place] [address], [place] [address] December, [facility] [address] [id number] [address] [place] [address], [place] [address] Nov, [facility] [address] [id number] [address] [place] [address], [place] [address] Nov, [facility] [address] [id number] [address] [place] [address], [place] [address] Oct, [facility] [address] [id number] [address] [place] [address], [place] [address] Oct, [facility] [address] [id number] [address] [place] [address], [place] [address] Oct, 2013 [facility] [address] [id number] [facility] [address] 20 Oct, 2013 [facility] [address] [id number] [address] [place] [address], [place] [address] 19 Oct, 2013 [facility] [address] [id number] [address] [place] [address], [place] [address] 19 Oct, 2013 [facility] [address] [id number] [address] [place] [address], [place] [address] 19 Oct, 2013 [facility] [address] [id number] [address] [place] [address], [place] [address] 19 Oct, 2013 [facility] [address] [id number] [address] [place] [address], [place] [address] 18 Oct, 2013 [facility] [address] [id number] [address] [place] [address], [place] [address] 08 Oct, 2013 [facility] [address] [id number] [address] [place] [address], [place] [address] 07 Oct, 2013 [facility] [address] [id number] [address] [place] [address], [place] [address] 06 Oct, 2013 [facility] [address] [id number] [address] [place] [address], [place] [address] 06 Oct, 2013 [facility] [address] [id number] [address] [place] [address], [place] [address] 05 Oct, 2013 [facility] [address] [id number] [address] [place] [address], [place] [address] 05 Oct, 2013 [facility] [address] [id number] [address] [place] [address], [place] [address] 05 Oct, 2013 [facility] [address] [id number] [address] [place] [address], [place] [address] 05 Oct, 2013 [facility] [address] [id number] [address] [place] [address], [place] [address] Sep, [facility] [address] [id number] [address] [place] [address], [place] [address] Sep, [facility] [address] [id number] [address] [place] [address], [place] [address] Sep, [facility] [address] [id number] [address] [place] [address], [place] [address] Jun, [facility] [address] [id number] [address] [place] [address], [place] [address] Jun, [facility] [address] [id number] [address] [place] [address], [place] [address] Jun, [facility] [address] [id number] [address] [place] [address], [place] [address] Jun, [facility] [address] [id number] [address] [place] [address], [place] [address] Jun, [facility] [address] [id number] [address] [place] [address], [place] [address] Jun, [facility] [address] [id number] [address] [place] [address], [place] [address] May, [facility] [address] [id number] [address] [place] [address], [place] [address] May, [facility] [address] [id number] [address] [place] [address], [place] [address] May, [facility] [address] [id number] [address] [place] [address], [place] [address] May, [facility] [address] [id number] [address] [place] [address], [place] [address] May, [facility] [address] [id number] [address] [place] [address], [place] [address] May, [facility] [address] [id number] [address] [place] [address], [place] [address] Apr, [facility] [address] [id number] [address] [place] [address], [place] [address] 24 Apr, 2013 [facility] [address] [id number] [address] [place] [address], [place] [address] 23 Apr, 2012 [facility] [address] [id number] [address] [place] [address], [place] [address] 20 Apr, 2012 [facility] [address] [id number] [address] [place] [address], [place] [address] 19 Apr, 2012 [facility] [address] [id number] [address] [place] [address], [place] [address] 17 Apr, 2012 [facility] [address] [id number] [address] [place] [address], [place] [address] 13 Apr, 2012 [facility] [address] [id number] [address] [place] [address], [place] [address] 11 Apr, 2013 [facility] [address] [id number] [address] [place] [address], [place] [address] 09 Apr, 2013 [facility] [address] [id number] [address] [place] [address], [place] [address] 05 Apr, 2012 [facility] [address] [id number] [address] [place] [address], [place] [address] Mar, [facility] [address] [id number] [address] [place] [address], [place] [address] Nov, [facility] [address] [id number] [address] [place] [address], [place] [address] Oct, [facility] [address] [id number] [address] [place] [address], [place] [address] Oct, [facility] [address] [id number] [address] [place] [address], [place] [address] Sep, [facility] [address] [address] [id number] [address] [place] [address], [place] [phone] May, [facility] [address] [id number] [address] [place] [address], [place] [phone] May, [facility] [address] [id number] [address] [place] [phone] May, [facility] [address] [id number] [address] [place] [phone] May, [facility] [address] [id number] [address] [place] [phone] 24 Apr, 2012 [facility] [address] [id number] [address] [place] [phone] Apr, [facility] [address] [id number] [address] [place] [phone] Mar, [facility] [address] [id number] [address] [place] [phone] Feb, [facility] [address] [id number] [address] [place] [phone] Jul, [facility] [address] [id number] [address] [place] [phone] Jul, [facility] [address] [id number] [address] [place] [phone] Jul, [facility] [address] [id number] [address] [place] [phone] December, [facility] [address] [id number] [address] [place] [phone] December, [facility] [address] [id number] [address] [place] [phone] Oct, IMMUNIZATIONS No Known Immunizations SOCIAL HISTORY Never Assessed REASON FOR VISIT PLAN OF CARE VITAL SIGNS Height 68 in 2014-04-08 Weight 263.06 lbs 2014-04-08 Temperature 99 degrees Fahrenheit 2014-04-08 Heart Rate 90 bpm 2014-04-08 Respiratory Rate 22 2014-04-08 Blood pressure systolic 150 mmHg 2014-04-08 Blood pressure diastolic 102 mmHg 2014-04-08 MEDICATIONS No Known Medications RESULTS No Results PROCEDURES Procedure Date Ordered Result Body Site URINE-NO MICRO Apr 08, 2014 INSTRUCTIONS MEDICATIONS ADMINISTERED No Known Medications MEDICAL (GENERAL) HISTORY Type Description Date Medical History anemia Medical History asthma Surgical History section x2 Surgical History hernia repair Hospitalization History surgeries Hospitalization History possible gallbladder problems Hospitalization History ER visit for UTI 09/12/15 Hospitalization History dizziness, blackout 12/28/2017
--- OUTSIDE RECORDS SUMMARY | 2019-10-07 05:27 | XMS REPORT ---
Author Author Jailene RICHTER Organization [facility] Address [address] [place] [address] Care Team Providers [employer] Name Role Phone MILY RICHTER Unavailable PROBLEMS Type Condition ICD9-CM Code [id number] Code Onset Dates Condition S tatus SNOMED Code Problem Generalized anxiety disorder F41.1 A ctive [id number] Problem Iron deficiency anemia secondary to inadequate d ietary iron intake D50.8 Active 797075026 Problem Elevated erythrocyte sedimentation rate R70.0 Active [id number] Problem Primary insomnia F51.01 Active 397 2004 ALLERGIES No Information ENCOUNTERS Encounter Location Date Diagnosis [facility] [address] [address] Apr, [facility] IN [facility] [address] [address] Mar, Viral upper respiratory trac t infection J06.9 and Morbid obesity E66.01 [facility] [address] [address] Feb, [facility] [address] [address] Sep, Fever, unspecified fever cau se R50.9 ; Sore throat J02.9 ; Cough R05 ; Influenza A J10.1 and BMI 40.0-44.9, adult Z68.41 [facility] [address] [address] 15 Sep, 2018 Sore throat J02.9 ; Viral up per respiratory tract infection J06.9 and BMI 40.0-44.9, adult Z68.41 [facility] [address] [address] 04 Jul, 2018 Bacterial conjunctivitis of right eye H10.9 and BMI 40.0-44.9, adult Z68.41 [place] [address] [address] 14 Jun, 2018 Viral URI J06.9 [place] [address] [address] 07 Jun, 2018 Viral upper respiratory infe ction J06.9 ; Acute gastroenteritis K52.9 and BMI 40.0-44.9, adult Z68.41 [place] [address] [address] 10 May, 2018 Acute conjunctivitis of righ t eye, unspecified acute conjunctivitis type H10.31 ; Unspecified mood [affective] disorder F39 ; Generalized anxiety disorder F41.1 and BMI 40.0-44.9, adult Z68.41 [place] [address] [address] 08 May, 2018 [place] [address] [address] Apr, Other specified abnormal fin dings of blood chemistry R79.89 [place] [address] [address] Apr, Sore throat J02.9 ; Diarrhea , unspecified R19.7 and Vomiting, unspecified R11.10 [place] [address] [address] Apr, Chronic fatigue R53.82 ; Rey sea R11.0 and Lyme disease A69.[address] [address] Apr, [address] [address] Mar, Generalized anxiety disorder F41.1 ; Unspecified mood [affective] disorder F39 ; BMI 40.0-44.9, adult Z68.41 and Myalgia M79.1 [place] [address] [address] Feb, Elevated erythrocyte sedimen tation rate R70.0 [place] [address] [address] Feb, Elevated erythrocyte sedimen tation rate R70.0 [place] [address] [address] Feb, Unprotected sexual intercour se Z72.51 ; Pain in left knee M25.562 and Pain in joints of right hand M25.541 [place] [address] [address] Feb, Pain in left knee M25.562 an d Pain in joints of right hand M25.541 [place] [address] [address] Feb, Unspecified mood [affective] disorder F39 ; Generalized anxiety disorder F41.1 ; Pain in joints of right hand M25.541 ; Pain in joints of left hand M25.542 ; Pain in right knee M25.561 ; Pain in left knee M25.562 and Morbid (severe) obesity due to excess calories E66.01 [facility] [address] [place] [id number] [address] [place] [address] Jan, Sore throat J02.9 ; Strep th roat J02.0 ; BMI 40.0-44.9, adult Z68.41 ; Dysuria R30.0 and Acute cystitis with hematuria N30.01 [facility] [address] [address] Jan, [facility] [address] [address] December, Abnormal MRI of head R93.0 [place] [address] [address] December, Subcutaneous nodules R22.9 ; Syncope, unspecified syncope type R55 ; Abnormal MRI of head R93.0 and Iron deficiency anemia secondary to inadequate dietary iron intake D50.8 [place] [address] [place] [id number] [address] [place] [address] December, [place] [address] [address] December, Iron deficiency anemia secon chuck to inadequate dietary iron intake D50.8 and BMI 40.0-44.9, adult Z68.41 [facility] [place] [address] [address] Nov, Gastroenteritis K52.9 [place] [address] [address] Nov, [place] [address] [address] Nov, Bilateral hand swelling M79. 89 ; Amenorrhea N91.2 ; Desire for Z31.9 ; Amenorrhea, unspecified N91.2 ; Bilateral swelling of feet M79.89 ; Rash R21 and Iron deficiency anemia, unspecified iron deficiency anemia type D50.9 [place] [address] [place] [id number] [place] [address] Nov, Bilateral hand swelling M79. 89 ; Bilateral swelling of feet M79.89 and Rash R21 [place] [address] [place] [id number] [address] [place] [address] Sep, Desire for Z31.9 a nd Amenorrhea N91.2 [facility] [place] [address] [address] Aug, Scabies B86 [place] [address] [address] Aug, Amenorrhea, unspecified N91. 2 [place] [address] [place] [address] [place] [address] 16 Aug, 2017 Amenorrhea, unspecified N91. 2 [facility] [address] [address] Aug, Amenorrhea N91.2 and Iron de ficiency anemia, unspecified iron deficiency anemia type D50.9 [facility] [address] [place] [id number] [address] [place] [address] Aug, Iron deficiency anemia secon chuck to inadequate dietary iron intake D50.8 ; Amenorrhea N91.2 ; Generalized anxiety disorder F41.1 ; Unspecified mood [affective] disorder F39 and Nausea R11.0 [facility] [address] [place] [id number] [address] [place] [address] Jul, Non-intractable vomiting wit h nausea, unspecified vomiting type R11.2 and Pleurisy R09.1 [place] [address] [place] [id number] [place] [address] Jul, [facility] [address] [address] Jun, Unspecified mood [affective] disorder F39 [place] [address] [place] [id number] [place] [address] Jun, Unspecified mood [affective] disorder F39 and Generalized anxiety disorder F41.1 [facility] [address] [place] [address] May, Bilious vomiting with nausea R11.14 [facility] [address] [place] [id number] [address] [place] [address] May, Unspecified mood [affective] disorder F39 ; Generalized anxiety disorder F41.1 and Iron deficiency anemia, unspecified iron deficiency anemia type D50.9 [facility] [address] [place] [id number] [address] [place] [address] Apr, Unspecified mood [affective] disorder F39 [place] [address] [place] [address] [place] [address] Apr, Iron deficiency anemia, unsp ecified iron deficiency anemia type D50.9 [facility] [address] [facility] [id number] [address] [place] [address] Apr, Iron deficiency anemia, unsp ecified iron deficiency anemia type D50.9 [facility] [address] [facility] [id number] [address] [place] [address] 18 Apr, 2017 Unspecified mood [affective] disorder F39 [facility] [address] [facility] [id number] [address] [place] [address] Apr, Abnormal CBC R79.89 [place] [address] [facility] [id number] [place] [address] 07 Apr, 2017 Abnormal CBC R79.89 [place] [address] [place] [id number] [place] [address] 05 Apr, 2017 Encounter to establish care with new doctor Z76.89 ; Unspecified mood [affective] disorder F39 and Primary insomnia F51.01 [facility] [address] [place] [id number] [address] [place] [address] Mar, Unspecified mood [affective] disorder F39 and Generalized anxiety disorder F41.1 [facility] [address] [place] [id number] [address] [place] [address] Mar, Sore throat J02.9 and Strep pharyngitis J02.0 [facility] [address] [place] [id number] [address] [place] [id number] Feb, Dental examination Z01.20 [facility] [address] [facility] [id number] [place] [id number] Jan, Encounter for dental examina tion Z01.20 [facility] [address] [facility] [id number] [address] [place] [address] Nov, Fever, unspecified R50.9 and Acute nasopharyngitis J00 [facility] [address] [place] [id number] [place] [address] 18 Sep, 2015 Abdominal pain, acute, right upper quadrant 789.01 [facility] [address] [address] Sep, [facility] [address] [address] Aug, Irritable bowel syndrome wit h diarrhea K58.0 [place] [address] [address] Aug, Urinary tract infection, sit e not specified N39.0 and Back pain M54.9 [place] [address] [address] Mar, Abdominal pain, acute, right upper quadrant 789.01 [place] [address] [address] Mar, [place] [address] [address] Mar, Nausea 787.02 and Abdominal pain, acute, right upper quadrant 789.01 [place] [address] [address] Mar, Nausea 787.02 and Abdominal pain 789.00 [place] [address] [address] Mar, Nausea 787.02 [place] [address] [address] Jan, Amenorrhea 626.0 [place] [address] [address] Jan, Amenorrhea 626.0 and Obesity 278.00 [place] [address] [place] [id number] [place] [address] December, Amenorrhea 626.0 and Cough 7 86.2 [facility] [place] [facility] [address] [id number] [address] [place] [address], [place] [address] 14 Nov, 2014 [facility] [address] [id number] [address] [place] [address], [place] [address] Nov, [facility] [address] [id number] [address] [place] [address], [place] [address] May, [facility] [address] [id number] [address] [place] [address], [place] [address] May, [facility] [address] [id number] [address] [place] [address], [place] [address] Mar, [facility] [address] [id number] [address] [place] [address], [place] [address] Mar, [facility] [address] [id number] [address] [place] [address], [place] [address] Mar, [facility] [address] [id number] [address] [place] [address], [place] [address] Mar, [facility] [address] [id number] [address] [place] [address], [place] [address] Mar, [facility] [address] [id number] [address] [place] [address], [place] [address] Mar, [facility] [address] [id number] [address] [place] [address], [place] [address] Mar, [facility] [address] [id number] [address] [place] [address], [place] [address] Mar, [facility] [address] [id number] [address] [place] [address], [place] [address] Mar, [facility] [address] [id number] [address] [place] [address], [place] [address] Mar, [facility] [address] [id number] [address] [place] [address], [place] [address] Mar, [facility] [address] [id number] [address] [place] [address], [place] [address] Mar, [facility] [place] [facility] [address] [id number] [facility] [place] [address] Mar, 2013 [facility] [place] [facility] [address] [id number] [address] [place] [address], [place] [address] Mar, [facility] [place] [facility] [address] [id number] [address] [place] [address], [place] [address] Mar, [facility] [place] [facility] [address] [id number] [address] [place] [address], [place] [address] Feb, [facility] [place] [facility] [address] [id number] [address] [place] [address], [place] [address] Feb, [facility] [place] [facility] [address] [id number] [address] [place] [address], [place] [address] Feb, [facility] [place] [facility] [address] [id number] [address] [place] [address], [place] [address] Feb, [facility] [place] [facility] [address] [id number] [address] [place] [address], [place] [address] Feb, [facility] [place] [facility] [address] [id number] [address] [place] [address], [place] [address] Feb, [facility] [place] [facility] [address] [id number] [address] [place] [address], [place] [address] Feb, [facility] [place] [facility] [address] [id number] [address] [place] [address], [place] [address] Feb, [facility] [place] [facility] [address] [id number] [address] [place] [address], [place] [address] Feb, [facility] [place] [facility] [address] [id number] [address] [place] [address], [place] [address] Feb, [facility] [place] [facility] [address] [id number] [address] [place] [address], [place] [address] Feb, [facility] [place] [facility] [address] [id number] [address] [place] [address], [place] [address] Feb, [facility] [place] [facility] [address] [id number] [address] [place] [address], [place] [address] Feb, [facility] [place] [facility] [address] [id number] [facility] [place] [address] Feb, [facility] [place] [facility] [address] [id number] [address] [place] [address], [place] [address] Feb, [facility] [place] [facility] [address] [id number] [address] [place] [address], [place] [address] Jan, [facility] [place] [facility] [address] [id number] [address] [place] [address], [place] [address] Jan, [facility] [place] [facility] [address] [id number] [address] [place] [address], [place] [address] Jan, [facility] [place] [facility] [address] [id number] [address] [place] [address], [place] [address] Jan, [facility] [place] [facility] [address] [id number] [address] [place] [address], [place] [address] Jan, [facility] [place] [facility] [address] [id number] [address] [place] [address], [place] [address] Jan, [facility] [place] [facility] [address] [id number] [address] [place] [address], [place] [address] Jan, [facility] [place] [facility] [address] [id number] [address] [place] [address], [place] [address] Jan, [facility] [place] [facility] [address] [id number] [address] [place] [address], [place] [address] Jan, [facility] [place] [facility] [address] [id number] [address] [place] [address], [place] [address] Jan, [facility] [place] [facility] [address] [id number] [address] [place] [address], [place] [address] Jan, [facility] [place] [facility] [address] [id number] [address] [place] [address], [place] [address] Jan, [facility] [place] [facility] [address] [id number] [address] [place] [address], [place] [address] Jan, [facility] [place] [facility] [address] [id number] [facility] [place] [address] December, [facility] [address] [id number] [address] [place] [address], [place] [address] December, [facility] [address] [id number] [address] [place] [address], [place] [address] December, [facility] [address] [id number] [address] [place] [address], [place] [address] December, [facility] [address] [id number] [address] [place] [address], [place] [address] December, [facility] [address] [id number] [address] [place] [address], [place] [address] December, [facility] [address] [id number] [address] [place] [address], [place] [address] December, [facility] [address] [id number] [address] [place] [address], [place] [address] December, [facility] [address] [id number] [address] [place] [address], [place] [address] December, [facility] [address] [id number] [address] [place] [address], [place] [address] December, [facility] [address] [id number] [address] [place] [address], [place] [address] December, [facility] [address] [id number] [address] [place] [address], [place] [address] December, [facility] [address] [id number] [address] [place] [address], [place] [address] Nov, [facility] [place] [facility] [address] [id number] [address] [place] [address], [place] [address] Nov, [facility] [address] [id number] [address] [place] [address], [place] [address] Oct, [facility] [address] [id number] [address] [place] [address], [place] [address] Oct, 2013 [facility] [address] [id number] [facility] [place] [address] 20 Oct, 2013 [facility] [place] [facility] [address] [id number] [facility] [place] [address] 20 Oct, 2013 [facility] [place] [facility] [address] [id number] [facility] [place] [address] 19 Oct, 2013 [facility] [place] [facility] [address] [id number] [facility] [place] [address] 19 Oct, 2013 [facility] [place] [facility] [address] [id number] [facility] [place] [address] 19 Oct, 2013 [facility] [place] [facility] [address] [id number] [address] [place] [address], [place] [address] 19 Oct, 2013 [facility] [place] [facility] [address] [id number] [address] [place] [address], [place] [address] 18 Oct, 2013 [facility] [place] [facility] [address] [id number] [address] [place] [address], [place] [address] 08 Oct, 2013 [facility] [place] [facility] [address] [id number] [address] [place] [address], [place] [address] 07 Oct, 2013 [facility] [place] [facility] [address] [id number] [address] [place] [address], [place] [address] 06 Oct, 2013 [facility] [place] [facility] [address] [id number] [address] [place] [address], [place] [address] 06 Oct, 2013 [facility] [place] [facility] [address] [id number] [address] [place] [address], [place] [address] 05 Oct, 2013 [facility] [place] [facility] [address] [id number] [address] [place] [address], [place] [address] 05 Oct, 2013 [facility] [place] [facility] [address] [id number] [address] [place] [address], [place] [address] 05 Oct, 2013 [facility] [place] [facility] [address] [id number] [facility] [place] [address] 05 Oct, 2013 [facility] [place] [facility] [address] [id number] [address] [place] [address] Sep, [facility] [address] [id number] [address] [place] [address], [place] [address] Sep, [facility] [address] [id number] [address] [place] [address], [place] [address] Sep, [facility] [address] [id number] [address] [place] [address], [place] [address] Jun, [facility] [address] [id number] [address] [place] [address], [place] [address] Jun, [facility] [address] [id number] [address] [place] [address], [place] [address] Jun, [facility] [address] [id number] [address] [place] [address], [place] [address] Jun, [facility] [address] [id number] [address] [place] [address], [place] [address] Jun, [facility] [address] [id number] [address] [place] [address], [place] [address] Jun, [facility] [address] [id number] [address] [place] [address], [place] [address] May, [facility] [address] [id number] [address] [place] [address], [place] [address] May, [facility] [address] [id number] [address] [place] [address], [place] [address] May, [facility] [address] [id number] [address] [place] [address], [place] [address] May, [facility] [address] [id number] [address] [place] [address], [place] [address] May, [facility] [address] [id number] [address] [place] [address], [place] [address] May, [facility] [address] [id number] [address] [place] [address], [place] [address] Apr, [facility] [address] [id number] [address] [place] [address], [place] [address] 24 Apr, 2012 [facility] [address] [id number] [address] [place] [address], [place] [address] 23 Apr, 2012 [facility] [address] [id number] [address] [place] [address], [place] [address] 20 Apr, 2012 [facility] [address] [id number] [address] [place] [address], [place] [address] 19 Apr, 2012 [facility] [address] [id number] [address] [place] [address], [place] [address] 17 Apr, 2012 [facility] [address] [id number] [address] [place] [address], [place] [address] 13 Apr, 2013 [facility] [address] [id number] [address] [place] [address], [place] [address] 11 Apr, 2013 [facility] [address] [id number] [address] [place] [address], [place] [address] 09 Apr, 2013 [facility] [address] [id number] [address] [place] [address], [place] [address] 05 Apr, 2013 [facility] [address] [id number] [address] [place] [address], [place] [address] Mar, [facility] [address] [id number] [address] [place] [address], [place] [address] Nov, [facility] [address] [id number] [address] [place] [address], [place] [address] Oct, [facility] [address] [id number] [address] [place] [address], [place] [address] Oct, [facility] [address] [id number] [address] [place] [address], [place] [address] Sep, [facility] [address] [id number] [address] [place] [address], [place] [address] May, [facility] [address] [id number] [address] [place] [id number] 27 May, 2012 [facility] [address] [id number] [address] [place] [phone] May, [facility] [address] [id number] [address] [place] [phone] May, [facility] [address] [id number] [address] [place] [id number] 24 Apr, 2012 [facility] [address] [id number] [address] [place] [id number] 06 Apr, 2012 [facility] [address] [id number] [address] [place] [id number] Mar, [facility] [address] [id number] [address] [place] [phone] Feb, [facility] [address] [id number] [address] [place] [phone] 15 Jul, 2011 [facility] [address] [id number] [address] [place] [phone] Jul, [facility] [address] [id number] [address] [place] [phone] Jul, [facility] [address] [id number] [address] [place] [phone] December, [facility] [address] [id number] [address] [place] [phone] December, [facility] [address] [id number] [address] [place] [id number] Oct, IMMUNIZATIONS No Known Immunizations SOCIAL HISTORY Never Assessed REASON FOR VISIT PLAN OF CARE VITAL SIGNS Height 68 in 2014-03-11 Weight 260.56 lbs 2014-03-11 Temperature 96.8 degrees Fahrenheit 2014-03-11 Heart Rate 96 bpm 2014-03-11 Respiratory Rate 20 2014-03-11 Blood pressure systolic 130 mmHg 2014-03-11 Blood pressure diastolic 88 mmHg 2014-03-11 MEDICATIONS Unknown Medications RESULTS No Results PROCEDURES Procedure Date Ordered Result Body Site STREP CULTURE March 11, 2014 URINE-NO MICRO March 11, 2014 INSTRUCTIONS MEDICATIONS ADMINISTERED No Known Medications MEDICAL (GENERAL) HISTORY Type Description Date Medical History anemia Medical History asthma Surgical History section x2 Surgical History hernia repair Hospitalization History surgeries Hospitalization History possible gallbladder problems Hospitalization History ER visit for UTI 09/12/15 Hospitalization History dizziness, blackout 12/28/2017
--- OUTSIDE RECORDS SUMMARY | 2019-10-07 05:27 | XMS REPORT ---
Author Author Jailene RICHTER Organization [facility] Address [address] [place] [address] Care Team Providers Care Wire Walker Name Role Phone MILY RICHTER Unavailable PROBLEMS Type Condition ICD9-CM Code [id number] Code Onset Dates Condition S tatus SNOMED Code Problem Generalized anxiety disorder F41.1 A ctive 25306190 Problem Iron deficiency anemia secondary to inadequate d ietary iron intake D50.8 Active 811967635 Problem Elevated erythrocyte sedimentation rate R70.0 Active 515639605 Problem Primary insomnia F51.01 Active 397 2004 ALLERGIES No Information ENCOUNTERS Encounter Location Date Diagnosis [facility] [address] [address] Mar, Viral upper respiratory trac t infection J06.9 and Morbid obesity E66.01 [facility] [address] [address] Feb, [facility] [address] [place] [id number] [address] [place] [address] 25 Sep, 2018 Fever, unspecified fever cau se R50.9 ; Sore throat J02.9 ; Cough R05 ; Influenza A J10.1 and BMI 40.0-44.9, adult Z68.41 [facility] [address] [id number] [address] [place] [address] 15 Sep, 2018 Sore throat J02.9 ; Viral up per respiratory tract infection J06.9 and BMI 40.0-44.9, adult Z68.41 [facility] [address] [place] [id number] [address] [place] [address] 04 Jul, 2018 Bacterial conjunctivitis of right eye H10.9 and BMI 40.0-44.9, adult Z68.41 [place] [address] [address] 14 Jun, 2018 Viral URI J06.9 [facility] [place] [address] [address] 07 Jun, 2018 Viral upper respiratory infe ction J06.9 ; Acute gastroenteritis K52.9 and BMI 40.0-44.9, adult Z68.41 [place] [address] [address] 10 May, 2018 Acute conjunctivitis of righ t eye, unspecified acute conjunctivitis type H10.31 ; Unspecified mood [affective] disorder F39 ; Generalized anxiety disorder F41.1 and BMI 40.0-44.9, adult Z68.[address] [address] 08 May, [address] [address] Apr, Other specified abnormal fin dings of blood chemistry R79.89 [facility] [address] [address] Apr, Sore throat J02.9 ; Diarrhea , unspecified R19.7 and Vomiting, unspecified R11.[address] [address] Apr, Chronic fatigue R53.82 ; Rey sea R11.0 and Lyme disease A69.20 [place] [address] [address] Apr, [address] [address] Mar, Generalized anxiety disorder F41.1 ; Unspecified mood [affective] disorder F39 ; BMI 40.0-44.9, adult Z68.41 and Myalgia M79.1 [address] [place] [address] Feb, Elevated erythrocyte sedimen tation rate R70.0 [facility] [address] [id number] [address] [place] [address] Feb, Elevated erythrocyte sedimen tation rate R70.0 [facility] [address] [place] [id number] [address] [place] [address] Feb, Unprotected sexual intercour se Z72.51 ; Pain in left knee M25.562 and Pain in joints of right hand M25.541 [facility] [address] [id number] [address] [place] [address] Feb, Pain in left knee M25.562 an d Pain in joints of right hand M25.541 [place] [address] [place] [id number] [address] [place] [address] Feb, Unspecified mood [affective] disorder F39 ; Generalized anxiety disorder F41.1 ; Pain in joints of right hand M25.541 ; Pain in joints of left hand M25.542 ; Pain in right knee M25.561 ; Pain in left knee M25.562 and Morbid (severe) obesity due to excess calories E66.01 [facility] [address] [place] [id number] [address] [place] [address] Jan, Sore throat J02.9 ; Strep th roat J02.0 ; BMI 40.0-44.9, adult Z68.41 ; Dysuria R30.0 and Acute cystitis with hematuria N30.01 [facility] [address] [facility] [id number] [address] [place] [address] Jan, [facility] [address] [place] [id number] [address] [place] [address] December, Abnormal MRI of head R93.0 [facility] [address] [place] [id number] [address] [place] [address] December, Subcutaneous nodules R22.9 ; Syncope, unspecified syncope type R55 ; Abnormal MRI of head R93.0 and Iron deficiency anemia secondary to inadequate dietary iron intake D50.8 [facility] [address] [facility] [id number] [address] [place] [address] December, [place] [address] [place] [id number] [address] [place] [address] December, Iron deficiency anemia secon chuck to inadequate dietary iron intake D50.8 and BMI 40.0-44.9, adult Z68.41 [facility] [address] [place] [id number] [address] [place] [address] Nov, Gastroenteritis K52.9 [place] [address] [address] Nov, [place] [address] [address] Nov, Bilateral hand swelling M79. 89 ; Amenorrhea N91.2 ; Desire for Z31.9 ; Amenorrhea, unspecified N91.2 ; Bilateral swelling of feet M79.89 ; Rash R21 and Iron deficiency anemia, unspecified iron deficiency anemia type D50.9 [place] [address] [place] [id number] [place] [address] Nov, Bilateral hand swelling M79. 89 ; Bilateral swelling of feet M79.89 and Rash R21 [place] [address] [address] Sep, Desire for Z31.9 a nd Amenorrhea N91.2 [facility] [address] [facility] [id number] [address] [place] [address] Aug, Scabies B86 [place] [address] [place] [id number] [place] [address] Aug, Amenorrhea, unspecified N91. 2 [place] [address] [address] Aug, Amenorrhea, unspecified N91. 2 [place] [address] [facility] [id number] [address] [place] [address] Aug, Amenorrhea N91.2 and Iron de ficiency anemia, unspecified iron deficiency anemia type D50.9 [facility] [address] [facility] [id number] [address] [place] [address] Aug, Iron deficiency anemia secon chuck to inadequate dietary iron intake D50.8 ; Amenorrhea N91.2 ; Generalized anxiety disorder F41.1 ; Unspecified mood [affective] disorder F39 and Nausea R11.0 [facility] [address] [facility] [id number] [address] [place] [address] Jul, Non-intractable vomiting wit h nausea, unspecified vomiting type R11.2 and Pleurisy R09.1 [facility] [address] [place] [id number] [address] [place] [address] Jul, [facility] [address] [place] [id number] [address] [place] [address] Jun, Unspecified mood [affective] disorder F39 [place] [address] [place] [id number] [address] [place] [address] Jun, Unspecified mood [affective] disorder F39 and Generalized anxiety disorder F41.1 [facility] [address] [place] [id number] [address] [place] [address] May, Bilious vomiting with nausea R11.14 [facility] [address] [facility] [id number] [address] [place] [address] May, Unspecified mood [affective] disorder F39 ; Generalized anxiety disorder F41.1 and Iron deficiency anemia, unspecified iron deficiency anemia type D50.9 [facility] [address] [facility] [id number] [address] [place] [address] Apr, Unspecified mood [affective] disorder F39 [facility] [address] [facility] [id number] [address] [place] [address] Apr, Iron deficiency anemia, unsp ecified iron deficiency anemia type D50.9 [facility] [address] [facility] [id number] [address] [place] [address] Apr, Iron deficiency anemia, unsp ecified iron deficiency anemia type D50.9 [facility] [address] [facility] [id number] [address] [place] [address] 18 Apr, 2017 Unspecified mood [affective] disorder F39 [facility] [address] [facility] [id number] [address] [place] [address] 07 Apr, 2017 Abnormal CBC R79.89 [facility] [address] [facility] [id number] [address] [place] [address] 07 Apr, 2017 Abnormal CBC R79.89 [place] [address] [place] [id number] [address] [place] [address] 05 Apr, 2017 Encounter to establish care with new doctor Z76.89 ; Unspecified mood [affective] disorder F39 and Primary insomnia F51.01 [facility] [address] [place] [address] Mar, Unspecified mood [affective] disorder F39 and Generalized anxiety disorder F41.1 [facility] [address] [place] [id number] [address] [place] [address] Mar, Sore throat J02.9 and Strep pharyngitis J02.0 [facility] [address] [place] [id number] [address] [place] [id number] Feb, Dental examination Z01.20 [facility] [id number] [place] [id number] Jan, Encounter for dental examina tion Z01.20 [facility] [address] [place] [id number] [address] [place] [address] Nov, Fever, unspecified R50.9 and Acute nasopharyngitis J00 [facility] [address] [place] [id number] [address] [place] [address] 18 Sep, 2015 Abdominal pain, acute, right upper quadrant 789.01 [facility] [address] [facility] [id number] [address] [place] [address] 10 Sep, 2015 [facility] [address] [place] [id number] [address] [place] [address] Aug, Irritable bowel syndrome wit h diarrhea K58.0 [facility] [address] [place] [id number] [address] [place] [address] Aug, Urinary tract infection, sit e not specified N39.0 and Back pain M54.9 [facility] [address] [place] [id number] [address] [place] [address] Mar, Abdominal pain, acute, right upper quadrant 789.01 [facility] [address] [place] [id number] [address] [place] [address] Mar, [facility] [address] [place] [id number] [address] [place] [address] Mar, Nausea 787.02 and Abdominal pain, acute, right upper quadrant 789.01 [facility] [address] [place] [id number] [address] [place] [address] Mar, Nausea 787.02 and Abdominal pain 789.00 [facility] [address] [place] [id number] [address] [place] [address] Mar, Nausea 787.02 [facility] [address] [place] [id number] [address] [place] [address] Jan, Amenorrhea 626.0 [facility] [address] [place] [id number] [address] [place] [address] Jan, Amenorrhea 626.0 and Obesity 278.00 [facility] [address] [place] [id number] [address] [place] [address] December, Amenorrhea 626.0 and Cough 7 86.2 [facility] [address] [place] [id number] [address] [place] [address] Nov, [facility] [address] [id number] [facility] [place] [address] Nov, [facility] [address] [id number] [address] [place] [address], [place] [address] May, [facility] [address] [id number] [address] [place] [address], [place] [address] May, [facility] [address] [id number] [address] [place] [address], [place] [address] Mar, [facility] [address] [id number] [address] [place] [address], [place] [address] Mar, [facility] [address] [id number] [address] [place] [address], [place] [address] Mar, [facility] [address] [id number] [address] [place] [address], [place] [address] Mar, [facility] [address] [id number] [address] [place] [address], [place] [address] Mar, [facility] [address] [id number] [address] [place] [address], [place] [address] Mar, [facility] [address] [id number] [address] [place] [address], [place] [address] Mar, [facility] [address] [id number] [address] [place] [address], [place] [address] Mar, [facility] [address] [id number] [address] [place] [address], [place] [address] Mar, [facility] [address] [id number] [address] [place] [address], [place] [address] Mar, [facility] [address] [id number] [address] [place] [address], [place] [address] Mar, [facility] [address] [id number] [address] [place] [address], [place] [address] Mar, [facility] [address] [id number] [address] [place] [address], [place] [address] Mar, [facility] [address] [id number] [facility] [place] [address] Mar, [facility] [address] [id number] [address] [place] [address], [place] [address] Mar, [facility] [address] [id number] [address] [place] [address], [place] [address] Feb, [facility] [address] [id number] [address] [place] [address], [place] [address] Feb, [facility] [address] [id number] [address] [place] [address], [place] [address] Feb, [facility] [address] [id number] [address] [place] [address], [place] [address] Feb, [facility] [address] [id number] [address] [place] [address], [place] [address] Feb, [facility] [address] [id number] [address] [place] [address], [place] [address] Feb, [facility] [address] [id number] [address] [place] [address], [place] [address] Feb, [facility] [address] [id number] [address] [place] [address], [place] [address] Feb, [facility] [address] [id number] [address] [place] [address], [place] [address] Feb, [facility] [address] [id number] [address] [place] [address], [place] [address] Feb, [facility] [address] [id number] [address] [place] [address], [place] [address] Feb, [facility] [address] [id number] [address] [place] [address], [place] [address] Feb, [facility] [address] [id number] [address] [place] [address], [place] [address] Feb, [facility] [address] [id number] [address] [place] [address], [place] [address] 07 Feb, 2014 [facility] [address] [id number] [facility] [place] [address] Feb, [facility] [address] [id number] [address] [place] [address], [place] [address] Jan, [facility] [address] [id number] [address] [place] [address], [place] [address] Jan, [facility] [address] [id number] [address] [place] [address], [place] [address] Jan, [facility] [address] [id number] [address] [place] [address], [place] [address] Jan, [facility] [address] [id number] [address] [place] [address], [place] [address] Jan, [facility] [address] [id number] [address] [place] [address], [place] [address] Jan, [facility] [address] [id number] [address] [place] [address], [place] [address] Jan, [facility] [address] [id number] [address] [place] [address], [place] [address] Jan, [facility] [address] [id number] [address] [place] [address], [place] [address] Jan, [facility] [address] [id number] [address] [place] [address], [place] [address] Jan, [facility] [address] [id number] [address] [place] [address], [place] [address] Jan, [facility] [address] [id number] [address] [place] [address], [place] [address] Jan, [facility] [address] [id number] [address] [place] [address], [place] [address] Jan, [facility] [address] [id number] [address] [place] [address], [place] [address] December, [facility] [address] [id number] [facility] [place] [address] December, [facility] [address] [id number] [address] [place] [address], [place] [address] December, [facility] [address] [id number] [address] [place] [address], [place] [address] December, [facility] [address] [id number] [address] [place] [address], [place] [address] December, [facility] [address] [id number] [address] [place] [address], [place] [address] December, [facility] [address] [id number] [address] [place] [address], [place] [address] December, [facility] [address] [id number] [address] [place] [address], [place] [address] December, [facility] [address] [id number] [address] [place] [address], [place] [address] December, [facility] [address] [id number] [address] [place] [address], [place] [address] December, [facility] [address] [id number] [address] [place] [address], [place] [address] December, [facility] [address] [id number] [address] [place] [address], [place] [address] December, [facility] [address] [id number] [address] [place] [address], [place] [address] Nov, [facility] [address] [id number] [address] [place] [address], [place] [address] Nov, [facility] [address] [id number] [address] [place] [address], [place] [address] Oct, [facility] [address] [id number] [address] [place] [address], [place] [address] Oct, [facility] [address] [id number] [address] [place] [address], [place] [address] Oct, 2013 [facility] [address] [id number] [facility] [place] [address] 20 Oct, 2013 [facility] [address] [id number] [address] [place] [address], [place] [address] 19 Oct, 2013 [facility] [address] [id number] [address] [place] [address], [place] [address] 19 Oct, 2013 [facility] [address] [id number] [address] [place] [address], [place] [address] 19 Oct, 2013 [facility] [address] [id number] [address] [place] [address], [place] [address] 19 Oct, 2013 [facility] [address] [id number] [address] [place] [address], [place] [address] 18 Oct, 2013 [facility] [address] [id number] [address] [place] [address], [place] [address] 08 Oct, 2013 [facility] [address] [id number] [address] [place] [address], [place] [address] 07 Oct, 2013 [facility] [address] [id number] [address] [place] [address], [place] [address] 06 Oct, 2013 [facility] [address] [id number] [address] [place] [address], [place] [address] 06 Oct, 2013 [facility] [address] [id number] [address] [place] [address], [place] [id number] 05 Oct, 2013 [facility] [address] [id number] [address] [place] [address], [place] [id number] 05 Oct, 2013 [facility] [address] [id number] [address] [place] [address], [place] [id number] 05 Oct, 2013 [facility] [address] [id number] [address] [place] [address], [place] [id number] 05 Oct, 2013 [facility] [address] [id number] [address] [place] [address], [place] [id number] Sep, [facility] [address] [id number] [address] [place] [address], [place] [id number] Sep, [facility] [address] [id number] [address] [place] [address], [place] [id number] Sep, [facility] [address] [id number] [address] [place] [address], [place] [id number] Jun, [facility] [address] [id number] [address] [place] [address], [place] [id number] Jun, [facility] [address] [id number] [address] [place] [address], [place] [id number] Jun, [facility] [address] [id number] [address] [place] [address], [place] [id number] Jun, [facility] [address] [id number] [address] [place] [address], [place] [id number] Jun, [facility] [address] [id number] [address] [place] [address], [place] [id number] Jun, [facility] [address] [id number] [address] [place] [address], [place] [id number] May, [facility] [address] [id number] [address] [place] [address], [place] [id number] May, [facility] [address] [id number] [address] [place] [address], [place] [id number] May, [facility] [address] [id number] [address] [place] [address], [place] [id number] May, [facility] [address] [id number] [address] [place] [address], [place] [id number] May, [facility] [address] [id number] [address] [place] [address], [place] [id number] May, [facility] [address] [id number] [address] [place] [address], [place] [id number] Apr, [facility] [address] [id number] [address] [place] [address], [place] [id number] 24 Apr, 2013 [facility] [address] [id number] [address] [place] [address], [place] [id number] 23 Apr, 2012 [facility] [address] [id number] [address] [place] [address], [place] [id number] 20 Apr, 2012 [facility] [address] [id number] [address] [place] [address], [place] [id number] 19 Apr, 2012 [facility] [address] [id number] [address] [place] [address], [place] [id number] 17 Apr, 2012 [facility] [address] [id number] [address] [place] [address], [place] [id number] 13 Apr, 2012 [facility] [address] [id number] [address] [place] [address], [place] [id number] 11 Apr, 2013 [facility] [address] [id number] [address] [place] [address], [place] [id number] 09 Apr, 2013 [facility] [address] [id number] [address] [place] [address], [place] [id number] 05 Apr, 2012 [facility] [address] [id number] [address] [place] [address], [place] [id number] Mar, [facility] [address] [id number] [address] [place] [address], [place] [id number] Nov, [facility] [address] [id number] [address] [place] [address], [place] [id number] Oct, [facility] [address] [id number] [address] [place] [address], [place] [id number] Oct, [facility] [address] [id number] [address] [place] [address], [place] [id number] Sep, [facility] [address] [id number] [address] [place] [address], [place] [id number] May, [facility] [address] [id number] [address] [place] [address], [place] [id number] May, [facility] [address] [id number] [address] [place] [id number] May, [facility] [address] [id number] [address] [place] [id number] May, [facility] [address] [id number] [address] [place] [id number] 24 Apr, 2012 [facility] [address] [id number] [address] [place] [id number] Apr, [facility] [address] [id number] [address] [place] [id number] Mar, [facility] [address] [id number] [address] [place] [id number] Feb, [facility] [address] [id number] [address] [place] [id number] Jul, [facility] [address] [id number] [address] [place] [id number] Jul, [facility] [address] [id number] [address] [place] [id number] Jul, [facility] [address] [id number] [address] [place] [id number] December, [facility] [address] [id number] [address] [place] [id number] December, [facility] [address] [id number] [address] [place] [id number] Oct, IMMUNIZATIONS No Known Immunizations SOCIAL HISTORY [...]
--- OUTSIDE RECORDS SUMMARY | 2019-10-07 05:27 | XMS REPORT ---
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 Name Role Phone MACK FARAH Unavailable PROBLEMS Type Condition ICD9-CM Code [id number] Code Onset Dates Condition S tatus SNOMED Code Problem Generalized anxiety disorder F41.1 A ctive 27861653 Problem Iron deficiency anemia secondary to inadequate d ietary iron intake D50.8 Active 429138680 Problem Elevated erythrocyte sedimentation rate R70.0 Active 531067194 Problem Primary insomnia F51.01 Active 397 2004 ALLERGIES No Information ENCOUNTERS Encounter Location Date Diagnosis [facility] [address] [address] Apr, [facility] [address] [address] Mar, Viral upper respiratory trac t infection J06.9 and Morbid obesity E66.01 [facility] [address] [place], [place] [id number] [address] [place] [address] Feb, [facility] [address] [place] [address] Sep, Fever, unspecified fever cau se R50.9 ; Sore throat J02.9 ; Cough R05 ; Influenza A J10.1 and BMI 40.0-44.9, adult Z68.41 [facility] [address] [address] 15 Sep, 2018 Sore throat J02.9 ; Viral up per respiratory tract infection J06.9 and BMI 40.0-44.9, adult Z68.41 [facility] [address] [place] [address] 04 Jul, 2018 Bacterial conjunctivitis of right eye H10.9 and BMI 40.0-44.9, adult Z68.41 [place] [address] [address] 14 Jun, 2018 Viral URI J06.9 [place] [address] [address] 07 Jun, 2018 Viral upper respiratory infe ction J06.9 ; Acute gastroenteritis K52.9 and BMI 40.0-44.9, adult Z68.41 [place] [address] [address] 10 May, 2018 Acute conjunctivitis of righ t eye, unspecified acute conjunctivitis type H10.31 ; Unspecified mood [affective] disorder F39 ; Generalized anxiety disorder F41.1 and BMI 40.0-44.9, adult Z68.[address] [address] 08 May, 2018 [place] [address] [address] 27 Apr, 2018 Other specified abnormal fin dings of blood chemistry R79.89 [place] [address] [address] [place] [id number] [address] [place] [address] Apr, Sore throat J02.9 ; Diarrhea , unspecified R19.7 and Vomiting, unspecified R11.10 [place] [address] [address] [place] [id number] [address] [place] [address] Apr, Chronic fatigue R53.82 ; Rey sea R11.0 and Lyme disease A69.[address] [address] Apr, [address] [address] Mar, Generalized anxiety disorder F41.1 ; Unspecified mood [affective] disorder F39 ; BMI 40.0-44.9, adult Z68.41 and Myalgia M79.1 [facility] [address] [place] [address] Feb, Elevated erythrocyte sedimen tation rate R70.0 [place] [address] [address] Feb, Elevated erythrocyte sedimen tation rate R70.0 [place] [address] [address] Feb, Unprotected sexual intercour se Z72.51 ; Pain in left knee M25.562 and Pain in joints of right hand M25.541 [place] [address] [address] Feb, Pain in left knee M25.562 an d Pain in joints of right hand M25.541 [place] [address] [address] Feb, Unspecified mood [affective] disorder F39 ; Generalized anxiety disorder F41.1 ; Pain in joints of right hand M25.541 ; Pain in joints of left hand M25.542 ; Pain in right knee M25.561 ; Pain in left knee M25.562 and Morbid (severe) obesity due to excess calories E66.01 [facility] [address] [place] [id number] [place] [address] Jan, Sore throat J02.9 ; Strep th roat J02.0 ; BMI 40.0-44.9, adult Z68.41 ; Dysuria R30.0 and Acute cystitis with hematuria N30.01 [facility] [address] [address] Jan, [facility] [address] [address] December, Abnormal MRI of head R93.0 [facility] [address] [address] December, Subcutaneous nodules R22.9 ; Syncope, unspecified syncope type R55 ; Abnormal MRI of head R93.0 and Iron deficiency anemia secondary to inadequate dietary iron intake D50.8 [place] [address] [address] [place] [id number] [address] [place] [address] December, [place] [address] [address] December, Iron deficiency anemia secon chuck to inadequate dietary iron intake D50.8 and BMI 40.0-44.9, adult Z68.41 [facility] [address] [address] Nov, Gastroenteritis K52.9 [place] [address] [address] Nov, [place] [address] [address] Nov, Bilateral hand swelling M79. 89 ; Amenorrhea N91.2 ; Desire for Z31.9 ; Amenorrhea, unspecified N91.2 ; Bilateral swelling of feet M79.89 ; Rash R21 and Iron deficiency anemia, unspecified iron deficiency anemia type D50.9 [place] [address] [place] [address] Nov, Bilateral hand swelling M79. 89 ; Bilateral swelling of feet M79.89 and Rash R21 [place] [address] [address] [place] [id number] [address] [place] [address] Sep, Desire for Z31.9 a nd Amenorrhea N91.2 [facility] [address] [address] Aug, Scabies B86 [place] [address] [address] [place] [id number] [place] [address] Aug, Amenorrhea, unspecified N91. 2 [place] [address] [place] [address] 16 Aug, 2017 Amenorrhea, unspecified N91. 2 [facility] [address] [place] [id number] [address] [place] [address] 08 Aug, 2017 Amenorrhea N91.2 and Iron de ficiency anemia, unspecified iron deficiency anemia type D50.9 [facility] [address] [place] [id number] [address] [place] [address] Aug, Iron deficiency anemia secon chuck to inadequate dietary iron intake D50.8 ; Amenorrhea N91.2 ; Generalized anxiety disorder F41.1 ; Unspecified mood [affective] disorder F39 and Nausea R11.0 [facility] [address] [facility] [id number] [address] [place] [address] Jul, Non-intractable vomiting wit h nausea, unspecified vomiting type R11.2 and Pleurisy R09.1 [place] [address] [address] [place] [id number] [address] [place] [address] Jul, [place] [address] [address] [place] [id number] [address] [place] [address] Jun, Unspecified mood [affective] disorder F39 [place] [address] [address] [place] [id number] [address] [place] [address] 02 Jun, 2017 Unspecified mood [affective] disorder F39 and Generalized anxiety disorder F41.1 [facility] [address] [place] [id number] [address] [place] [address] May, Bilious vomiting with nausea R11.14 [facility] [address] [place] [id number] [address] [place] [address] May, Unspecified mood [affective] disorder F39 ; Generalized anxiety disorder F41.1 and Iron deficiency anemia, unspecified iron deficiency anemia type D50.9 [facility] [address] [facility] [id number] [address] [place] [address] Apr, Unspecified mood [affective] disorder F39 [place] [address] [address] [place] [id number] [address] [place] [address] Apr, Iron deficiency anemia, unsp ecified iron deficiency anemia type D50.9 [facility] [address] [facility] [id number] [address] [place] [address] Apr, Iron deficiency anemia, unsp ecified iron deficiency anemia type D50.9 [facility] [address] [facility] [id number] [address] [place] [address] 18 Apr, 2017 Unspecified mood [affective] disorder F39 [facility] [address] [facility] [id number] [address] [place] [address] Apr, Abnormal CBC R79.89 [facility] [address] [facility] [id number] [place] [address] 07 Apr, 2017 Abnormal CBC R79.89 [facility] [address] [facility] [id number] [address] [place] [address] 05 Apr, 2017 Encounter to establish care with new doctor Z76.89 ; Unspecified mood [affective] disorder F39 and Primary insomnia F51.01 [facility] [address] [facility] [id number] [address] [place] [address] Mar, Unspecified mood [affective] disorder F39 and Generalized anxiety disorder F41.1 [facility] [address] [facility] [id number] [address] [place] [address] Mar, Sore throat J02.9 and Strep pharyngitis J02.0 [facility] [address] [place] [id number] [address] [place] [id number] Feb, Dental examination Z01.20 [facility] [id number] [place] [id number] Jan, Encounter for dental examina tion Z01.20 [facility] [address] [facility] [id number] [address] [place] [address] 11 Nov, 2016 Fever, unspecified R50.9 and Acute nasopharyngitis J00 [facility] [address] [place] [id number] [address] [place] [address] 18 Sep, 2015 Abdominal pain, acute, right upper quadrant 789.01 [facility] [address] [address] Sep, [facility] [address] [address] Aug, Irritable bowel syndrome wit h diarrhea K58.0 [facility] [address] [address] Aug, Urinary tract infection, sit e not specified N39.0 and Back pain M54.9 [place] [address] [address] Mar, Abdominal pain, acute, right upper quadrant 789.01 [place] [address] [address] Mar, [facility] [address] [address] Mar, Nausea 787.02 and Abdominal pain, acute, right upper quadrant 789.01 [place] [address] [address] Mar, Nausea 787.02 and Abdominal pain 789.00 [place] [address] [address] Mar, Nausea 787.02 [place] [address] [address] Jan, Amenorrhea 626.0 [place] [address] [address] Jan, Amenorrhea 626.0 and Obesity 278.00 [facility] [address] [place] [id number] [address] [place] [address] December, Amenorrhea 626.0 and Cough 7 86.2 [facility] [address] [id number] [address] [place] [address], [place] [address] 14 Nov, 2014 [facility] [address] [id number] [address] [place] [address], [place] [address] Nov, [facility] [address] [id number] [address] [place] [address], [place] [address] May, [facility] [address] [id number] [address] [place] [address], [place] [address] May, [facility] [address] [id number] [address] [place] [address], [place] [address] Mar, [facility] [address] [id number] [address] [place] [address], [place] [address] Mar, [facility] [address] [id number] [address] [place] [address], [place] [address] Mar, [facility] [address] [id number] [address] [place] [address], [place] [address] Mar, [facility] [address] [id number] [address] [place] [address], [place] [address] Mar, [facility] [address] [id number] [address] [place] [address], [place] [address] Mar, [facility] [address] [id number] [address] [place] [address], [place] [address] Mar, [facility] [address] [id number] [address] [place] [address], [place] [address] Mar, [facility] [address] [id number] [address] [place] [address], [place] [address] Mar, [facility] [address] [id number] [address] [place] [address], [place] [address] Mar, [facility] [address] [id number] [address] [place] [address], [place] [address] Mar, [facility] [address] [id number] [address] [place] [address], [place] [address] Mar, [facility] [address] [id number] [address] [place] [address], [place] [address] Mar, [facility] [address] [id number] [address] [place] [address], [place] [address] Mar, [facility] [address] [id number] [address] [place] [address], [place] [address] Mar, [facility] [address] [id number] [address] [place] [address], [place] [address] Feb, [facility] [address] [id number] [address] [place] [address], [place] [address] Feb, [facility] [address] [id number] [address] [place] [address], [place] [address] Feb, [facility] [address] [id number] [address] [place] [address], [place] [address] Feb, [facility] [address] [id number] [address] [place] [address], [place] [address] Feb, [facility] [address] [id number] [address] [place] [address], [place] [address] Feb, [facility] [address] [id number] [address] [place] [address], [place] [address] Feb, [facility] [address] [id number] [address] [place] [address], [place] [address] Feb, [facility] [address] [id number] [address] [place] [address], [place] [address] Feb, [facility] [address] [id number] [address] [place] [address], [place] [address] Feb, [facility] [address] [id number] [address] [place] [address], [place] [address] Feb, [facility] [address] [id number] [address] [place] [address], [place] [address] Feb, [facility] [address] [id number] [address] [place] [address], [place] [address] Feb, [facility] [address] [id number] [facility] [place] [address] Feb, [facility] [address] [id number] [address] [place] [address], [place] [address] Feb, [facility] [address] [id number] [address] [place] [address], [place] [address] Jan, [facility] [address] [id number] [address] [place] [address], [place] [address] Jan, [facility] [address] [id number] [address] [place] [address], [place] [address] Jan, [facility] [address] [id number] [address] [place] [address], [place] [address] Jan, [facility] [address] [id number] [address] [place] [address], [place] [address] Jan, [facility] [address] [id number] [address] [place] [address], [place] [address] Jan, [facility] [address] [id number] [address] [place] [address], [place] [address] Jan, [facility] [address] [id number] [address] [place] [address], [place] [address] Jan, [facility] [address] [id number] [address] [place] [address], [place] [address] Jan, [facility] [address] [id number] [address] [place] [address], [place] [address] Jan, [facility] [address] [id number] [address] [place] [address], [place] [address] Jan, [facility] [address] [id number] [address] [place] [address], [place] [address] Jan, [facility] [address] [id number] [address] [place] [address], [place] [address] Jan, [facility] [address] [id number] [facility] [place] [address] December, [facility] [address] [id number] [facility] [place] [address] December, [facility] [address] [id number] [facility] [place] [address] December, [facility] [address] [id number] [facility] [place] [address] December, [facility] [address] [id number] [facility] [place] [address] December, [facility] [address] [id number] [address] [place] [address], [place] [address] December, [facility] [address] [id number] [address] [place] [address], [place] [address] December, [facility] [address] [id number] [address] [place] [address], [place] [address] December, [facility] [address] [id number] [address] [place] [address], [place] [address] December, [facility] [address] [id number] [address] [place] [address], [place] [address] December, [facility] [address] [id number] [address] [place] [address], [place] [address] December, [facility] [address] [id number] [address] [place] [address], [place] [address] December, [facility] [address] [id number] [address] [place] [address], [place] [address] Nov, [facility] [address] [id number] [address] [place] [address], [place] [address] Nov, [facility] [address] [id number] [facility] [place] [address] Oct, [facility] [address] [id number] [address] [place] [address], [place] [address] 21 Oct, 2013 [facility] [address] [id number] [facility] [place] [address] 20 Oct, 2013 [facility] [address] [id number] [facility] [place] [address] 20 Oct, 2013 [facility] [address] [id number] [facility] [place] [address] 19 Oct, 2013 [facility] [address] [id number] [facility] [place] [address] 19 Oct, 2013 [facility] [address] [id number] [facility] [place] [address] 19 Oct, 2013 [facility] [address] [id number] [address] [place] [address], [place] [address] 19 Oct, 2013 [facility] [address] [id number] [address] [place] [address], [place] [address] 18 Oct, 2013 [facility] [address] [id number] [address] [place] [address], [place] [address] 08 Oct, 2013 [facility] [address] [id number] [address] [place] [address], [place] [address] 07 Oct, 2013 [facility] [address] [id number] [address] [place] [address], [place] [address] 06 Oct, 2013 [facility] [address] [id number] [address] [place] [address], [place] [address] 06 Oct, 2013 [facility] [address] [id number] [address] [place] [address], [place] [address] 05 Oct, 2013 [facility] [address] [id number] [address] [place] [address], [place] [address] 05 Oct, 2013 [facility] [address] [id number] [address] [place] [address], [place] [address] 05 Oct, 2013 [facility] [address] [id number] [facility] [place] [address] 05 Oct, 2013 [facility] [address] [id number] [address] [place] [address], [place] [address] Sep, [facility] [address] [id number] [address] [place] [address], [place] [address] Sep, [facility] [address] [id number] [address] [place] [address], [place] [address] Sep, [facility] [address] [id number] [address] [place] [address], [place] [id number] Jun, [facility] [address] [id number] [address] [place] [address], [place] [address] Jun, [facility] [address] [id number] [address] [place] [address], [place] [address] Jun, [facility] [address] [id number] [address] [place] [address], [place] [address] Jun, [facility] [address] [id number] [address] [place] [address], [place] [address] Jun, [facility] [address] [id number] [address] [place] [address], [place] [address] Jun, [facility] [address] [id number] [address] [place] [address], [place] [address] May, [facility] [address] [id number] [address] [place] [address], [place] [address] May, [facility] [address] [id number] [address] [place] [address], [place] [address] May, [facility] [address] [id number] [address] [place] [address], [place] [address] May, [facility] [address] [id number] [address] [place] [address], [place] [address] May, [facility] [address] [id number] [address] [place] [address], [place] [address] May, [facility] [address] [id number] [address] [place] [address], [place] [address] Apr, [facility] [address] [id number] [address] [place] [address], [place] [address] 24 Apr, 2012 [facility] [address] [id number] [address] [place] [address], [place] [address] 23 Apr, 2012 [facility] [address] [id number] [address] [place] [address], [place] [id number] 20 Apr, 2012 [facility] [address] [id number] [address] [place] [address], [place] [address] 19 Apr, 2012 [facility] [address] [id number] [address] [place] [address], [place] [id number] 17 Apr, 2012 [facility] [address] [id number] [address] [place] [address], [place] [id number] 13 Apr, 2013 [facility] [address] [id number] [address] [place] [address], [place] [address] 11 Apr, 2013 [facility] [address] [id number] [address] [place] [address], [place] [id number] 09 Apr, 2013 [facility] [address] [id number] [address] [place] [address], [place] [address] 05 Apr, 2013 [facility] [address] [id number] [address] [place] [address], [place] [address] Mar, [facility] [address] [id number] [address] [place] [address], [place] [address] Nov, [facility] [address] [id number] [address] [place] [id number] Oct, [facility] [address] [id number] [address] [place] [address], [place] [address] Oct, [facility] [address] [id number] [address] [place] [address], [place] [address] Sep, [facility] [address] [id number] [address] [place] [address], [place] [address] May, [facility] [address] [id number] [address] [place] [address] [id number] May, [facility] [address] [id number] [address] [place] [phone] May, [facility] [address] [id number] [address] [place] [id number] May, [facility] [address] [id number] [address] [place] [phone] Apr, [facility] [address] [id number] [address] [place] [phone] Apr, [facility] [address] [id number] [address] [place] [phone] Mar, [facility] [address] [id number] [address] [place] [id number] Feb, [facility] [address] [id number] [address] [place] [phone] Jul, [facility] [address] [id number] [address] [place] [id number] Jul, [facility] [address] [id number] [address] [place] [phone] Jul, [facility] [address] [id number] [address] [place] [phone] December, [facility] [address] [id number] [address] [place] [id number] December, [facility] [address] [id number] [address] [place] [id number] Oct, IMMUNIZATIONS No Known Immunizations SOCIAL HISTORY [...]
--- OUTSIDE RECORDS SUMMARY | 2019-10-07 05:28 | XMS REPORT ---
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 Name Role Phone MILY RICHTER Unavailable PROBLEMS Type Condition ICD9-CM Code [id number] Code Onset Dates Condition S tatus SNOMED Code Problem Generalized anxiety disorder F41.1 A ctive 96830057 Problem Iron deficiency anemia secondary to inadequate d ietary iron intake D50.8 Active 748457503 Problem Elevated erythrocyte sedimentation rate R70.0 Active 125143817 Problem Primary insomnia F51.01 Active 397 2004 ALLERGIES No Information ENCOUNTERS Encounter Location Date Diagnosis [place] [id number] [address] 30 Feb, 2019 [facility] [address] [place] [id number] [place] [address] 25 Sep, 2018 Fever, unspecified fever cau se R50.9 ; Sore throat J02.9 ; Cough R05 ; Influenza A J10.1 and BMI 40.0-44.9, adult Z68.41 [facility] [address] [place] [address] [id number] [place] [address] 15 Sep, 2018 Sore throat J02.9 ; Viral up per respiratory tract infection J06.9 and BMI 40.0-44.9, adult Z68.41 [place] [address] [place] [address] [place] [address] 04 Jul, 2018 Bacterial conjunctivitis of right eye H10.9 and BMI 40.0-44.9, adult Z68.41 [facility] [address] [place] [place] [address] [place] [address] 14 Jun, 2018 Viral URI J06.9 [facility] [address] [place] [id number] [place] [address] Jun, Viral upper respiratory infe ction J06.9 ; Acute gastroenteritis K52.9 and BMI 40.0-44.9, adult Z68.41 [place] [address] [address] May, Acute conjunctivitis of righ t eye, unspecified acute conjunctivitis type H10.31 ; Unspecified mood [affective] disorder F39 ; Generalized anxiety disorder F41.1 and BMI 40.0-44.9, adult Z68.41 [place] [address] [address] May, [place] [address] [address] Apr, Other specified abnormal fin dings of blood chemistry R79.89 [facility] [address] [address] Apr, Sore throat J02.9 ; Diarrhea , unspecified R19.7 and Vomiting, unspecified R11.[address] [address] Apr, Chronic fatigue R53.82 ; Rey sea R11.0 and Lyme disease A69.[address] [address] Apr, [address] [address] Mar, Generalized anxiety disorder F41.1 ; Unspecified mood [affective] disorder F39 ; BMI 40.0-44.9, adult Z68.41 and Myalgia M79.1 [place] [address] [address] Feb, Elevated erythrocyte sedimen tation rate R70.[address] [address] Feb, Elevated erythrocyte sedimen tation rate R70.0 [facility] [address] [place] [address] Feb, Unprotected sexual intercour se Z72.51 ; Pain in left knee M25.562 and Pain in joints of right hand M25.541 [facility] [address] [place] [address] Feb, Pain in left knee M25.562 an d Pain in joints of right hand M25.541 [place] [address] [place] [address] [place] [address] Feb, Unspecified mood [affective] disorder F39 ; Generalized anxiety disorder F41.1 ; Pain in joints of right hand M25.541 ; Pain in joints of left hand M25.542 ; Pain in right knee M25.561 ; Pain in left knee M25.562 and Morbid (severe) obesity due to excess calories E66.01 [facility] [address] [place] [id number] [place] [address] Jan, Sore throat J02.9 ; Strep th roat J02.0 ; BMI 40.0-44.9, adult Z68.41 ; Dysuria R30.0 and Acute cystitis with hematuria N30.01 [place] [address] [place] [id number] [place] [address] Jan, [place] [address] [place] [id number] [place] [address] December, Abnormal MRI of head R93.0 [place] [address] [place] [address] [place] [address] December, Subcutaneous nodules R22.9 ; Syncope, unspecified syncope type R55 ; Abnormal MRI of head R93.0 and Iron deficiency anemia secondary to inadequate dietary iron intake D50.8 [facility] [address] [place] [id number] [place] [address] December, [place] [address] [place] [address] December, Iron deficiency anemia secon chuck to inadequate dietary iron intake D50.8 and BMI 40.0-44.9, adult Z68.41 [facility] [address] [place] [address] [place] [address] Nov, Gastroenteritis K52.9 [place] [address] [address] Nov, [place] [address] [address] Nov, Bilateral hand swelling M79. 89 ; Amenorrhea N91.2 ; Desire for Z31.9 ; Amenorrhea, unspecified N91.2 ; Bilateral swelling of feet M79.89 ; Rash R21 and Iron deficiency anemia, unspecified iron deficiency anemia type D50.9 [place] [address] [place] [address] [place] [address] Nov, Bilateral hand swelling M79. 89 ; Bilateral swelling of feet M79.89 and Rash R21 [place] [address] [address] Sep, Desire for Z31.9 a nd Amenorrhea N91.2 [facility] [address] [place] [address] Aug, Scabies B86 [place] [address] [place] [address] [place] [address] Aug, Amenorrhea, unspecified N91. 2 [place] [address] [address] Aug, Amenorrhea, unspecified N91. 2 [place] [address] [place] [id number] [place] [address] Aug, Amenorrhea N91.2 and Iron de ficiency anemia, unspecified iron deficiency anemia type D50.9 [facility] [address] [facility] [id number] [address] [place] [address] Aug, Iron deficiency anemia secon chuck to inadequate dietary iron intake D50.8 ; Amenorrhea N91.2 ; Generalized anxiety disorder F41.1 ; Unspecified mood [affective] disorder F39 and Nausea R11.0 [facility] [address] [facility] [id number] [address] [place] [address] Jul, Non-intractable vomiting wit h nausea, unspecified vomiting type R11.2 and Pleurisy R09.1 [facility] [address] [facility] [id number] [address] [place] [address] Jul, [facility] [address] [facility] [id number] [address] [place] [address] Jun, Unspecified mood [affective] disorder F39 [place] [address] [place] [id number] [place] [address] Jun, Unspecified mood [affective] disorder F39 and Generalized anxiety disorder F41.1 [facility] [address] [facility] [id number] [address] [place] [address] May, Bilious vomiting with nausea R11.14 [facility] [address] [facility] [id number] [address] [place] [address] May, Unspecified mood [affective] disorder F39 ; Generalized anxiety disorder F41.1 and Iron deficiency anemia, unspecified iron deficiency anemia type D50.9 [facility] [address] [place] [id number] [address] [place] [address] Apr, Unspecified mood [affective] disorder F39 [place] [address] [facility] [id number] [address] [place] [address] Apr, Iron deficiency anemia, unsp ecified iron deficiency anemia type D50.9 [facility] [address] [facility] [id number] [address] [place] [address] Apr, Iron deficiency anemia, unsp ecified iron deficiency anemia type D50.9 [facility] [address] [id number] [address] [place] [address] 18 Apr, 2017 Unspecified mood [affective] disorder F39 [facility] [address] [id number] [address] [place] [id number] 07 Apr, 2017 Abnormal CBC R79.89 [facility] [address] [facility] [id number] [address] [place] [address] Apr, Abnormal CBC R79.89 [facility] [address] [facility] [id number] [address] [place] [address] 05 Apr, 2017 Encounter to establish care with new doctor Z76.89 ; Unspecified mood [affective] disorder F39 and Primary insomnia F51.01 [facility] [address] [facility] [id number] [address] [place] [address] Mar, Unspecified mood [affective] disorder F39 and Generalized anxiety disorder F41.1 [facility] [address] [facility] [id number] [address] [place] [address] Mar, Sore throat J02.9 and Strep pharyngitis J02.0 [facility] [address] [place] [id number] Feb, Dental examination Z01.20 [facility] [address] [place] [id number] [place] [id number] Jan, Encounter for dental examina tion Z01.20 [facility] [address] [facility] [id number] [address] [place] [address] Nov, Fever, unspecified R50.9 and Acute nasopharyngitis J00 [facility] [address] [facility] [id number] [address] [place] [id number] 18 Sep, 2015 Abdominal pain, acute, right upper quadrant 789.01 [facility] [address] [facility] [id number] [address] [place] [address] Sep, [facility] [address] [place] [id number] [address] [place] [address] Aug, Irritable bowel syndrome wit h diarrhea K58.0 [facility] [address] [place] [id number] [place] [address] Aug, Urinary tract infection, sit e not specified N39.0 and Back pain M54.9 [facility] [address] [place] [id number] [address] [place] [address] Mar, Abdominal pain, acute, right upper quadrant 789.01 [facility] [address] [place] [id number] [place] [address] Mar, [facility] [address] [address] Mar, Nausea 787.02 and Abdominal pain, acute, right upper quadrant 789.01 [facility] [address] [place] [id number] [place] [address] Mar, Nausea 787.02 and Abdominal pain 789.00 [facility] [address] [place] [id number] [place] [address] Mar, Nausea 787.02 [facility] [address] [address] Jan, Amenorrhea 626.0 [facility] [address] [place] [id number] [place] [address] Jan, Amenorrhea 626.0 and Obesity 278.00 [facility] [address] [place] [id number] [place] [address] December, Amenorrhea 626.0 and Cough 7 86.2 [facility] [address] [place] [id number] [place] [address] Nov, [facility] [address] [place] [id number] [address] [place] [address] Nov, [facility] [address] [address] May, [facility] [address] [id number] [address] [place] [address], [place] [address] May, [facility] [address] [id number] [address] [place] [address], [place] [address] Mar, [facility] [address] [id number] [address] [place] [address], [place] [address] Mar, [facility] [address] [id number] [address] [place] [address], [place] [address] Mar, [facility] [address] [id number] [address] [place] [address], [place] [address] Mar, [facility] [address] [id number] [address] [place] [address], [place] [address] Mar, [facility] [address] [id number] [address] [place] [address], [place] [address] Mar, [facility] [address] [id number] [address] [place] [address], [place] [address] Mar, [facility] [address] [id number] [address] [place] [address], [place] [address] Mar, [facility] [address] [id number] [address] [place] [address], [place] [address] Mar, [facility] [address] [id number] [address] [place] [address], [place] [address] Mar, [facility] [address] [id number] [address] [place] [address], [place] [address] Mar, [facility] [address] [id number] [address] [place] [address], [place] [address] Mar, [facility] [address] [id number] [address] [place] [address], [place] [address] Mar, [facility] [address] [id number] [address] [place] [address], [place] [address] Mar, [facility] [address] [id number] [address] [place] [address], [place] [address] Mar, 2013 [facility] [address] [id number] [address] [place] [address], [place] [address] Feb, 2013 [facility] [address] [id number] [address] [place] [address], [place] [address] Feb, 2013 [facility] [address] [id number] [address] [place] [address], [place] [address] Feb, 2013 [facility] [address] [id number] [address] [place] [address], [place] [address] Feb, 2013 [facility] [address] [id number] [address] [place] [address], [place] [address] Feb, 2013 [facility] [address] [id number] [address] [place] [address], [place] [address] Feb, 2013 [facility] [address] [id number] [address] [place] [address], [place] [address] Feb, 2013 [facility] [address] [id number] [address] [place] [address], [place] [address] Feb, 2013 [facility] [address] [id number] [address] [place] [address], [place] [address] Feb, 2013 [facility] [address] [id number] [address] [place] [address], [place] [address] Feb, 2013 [facility] [address] [id number] [address] [place] [address], [place] [address] Feb, 2013 [facility] [address] [id number] [address] [place] [address], [place] [address] Feb, 2013 [facility] [address] [id number] [address] [place] [address], [place] [address] Feb, 2013 [facility] [address] [id number] [address] [place] [address], [place] [address] Feb, 2013 [facility] [address] [id number] [address] [place] [address], [place] [address] Feb, 2013 [facility] [address] [id number] [facility] [place] [address] Jan, [facility] [address] [id number] [facility] [place] [address] Jan, [facility] [address] [id number] [facility] [place] [address] Jan, [facility] [address] [id number] [facility] [place] [address] Jan, [facility] [address] [id number] [facility] [place] [address] Jan, [facility] [address] [id number] [address] [place] [address], [place] [address] Jan, [facility] [address] [id number] [address] [place] [address], [place] [address] Jan, [facility] [address] [id number] [address] [place] [address], [place] [address] Jan, [facility] [address] [id number] [address] [place] [address], [place] [address] Jan, [facility] [address] [id number] [address] [place] [address], [place] [address] Jan, [facility] [address] [id number] [address] [place] [address], [place] [address] Jan, [facility] [address] [id number] [address] [place] [address], [place] [address] Jan, [facility] [address] [id number] [address] [place] [address], [place] [address] Jan, [facility] [address] [id number] [address] [place] [address], [place] [address] December, [facility] [address] [id number] [address] [place] [address], [place] [address] December, [facility] [address] [id number] [address] [place] [address], [place] [address] December, [facility] [address] [id number] [facility] [place] [address] December, [facility] [address] [id number] [facility] [place] [address] December, [facility] [address] [id number] [facility] [place] [address] December, [facility] [address] [id number] [address] [place] [address], [place] [address] December, [facility] [address] [id number] [address] [place] [address], [place] [address] December, [facility] [address] [id number] [address] [place] [address], [place] [address] December, [facility] [address] [id number] [address] [place] [address], [place] [address] December, [facility] [address] [id number] [address] [place] [address], [place] [address] December, [facility] [address] [id number] [address] [place] [address], [place] [address] December, [facility] [address] [id number] [address] [place] [address], [place] [address] Nov, [facility] [address] [id number] [address] [place] [address], [place] [address] Nov, [facility] [address] [id number] [address] [place] [address], [place] [address] Oct, [facility] [address] [id number] [address] [place] [address], [place] [address] Oct, [facility] [address] [id number] [address] [place] [address], [place] [address] Oct, [facility] [address] [id number] [address] [place] [address], [place] [address] Oct, [facility] [address] [id number] [facility] [place] [address] 19 Oct, 2013 [facility] [address] [id number] [address] [place] [place] [address], [place] [address] 19 Oct, 2013 [facility] [address] [id number] [facility] [place] [address] 19 Oct, 2013 [facility] [address] [id number] [address] [place] [address], [place] [address] 19 Oct, 2013 [facility] [address] [id number] [address] [place] [address], [place] [address] 18 Oct, 2013 [facility] [address] [id number] [address] [place] [address], [place] [address] 08 Oct, 2013 [facility] [address] [id number] [address] [place] [address], [place] [address] 07 Oct, 2013 [facility] [address] [id number] [address] [place] [address], [place] [address] 06 Oct, 2013 [facility] [address] [id number] [address] [place] [address], [place] [address] 06 Oct, 2013 [facility] [address] [id number] [address] [place] [address], [place] [address] 05 Oct, 2013 [facility] [address] [id number] [address] [place] [address], [place] [address] 05 Oct, 2013 [facility] [address] [id number] [address] [place] [address], [place] [address] 05 Oct, 2013 [facility] [address] [id number] [address] [place] [address], [place] [address] Oct, [facility] [address] [id number] [address] [place] [address], [place] [address] Sep, [facility] [address] [id number] [address] [place] [place] [address], [place] [address] Sep, [facility] [address] [id number] [address] [place] [address], [place] [address] Sep, [facility] [address] [id number] [address] [place] [address], [place] [address] Jun, [facility] [address] [id number] [address] [place] [address], [place] [address] Jun, [facility] [address] [id number] [address] [place] [address], [place] [address] Jun, [facility] [address] [id number] [address] [place] [address], [place] [address] Jun, [facility] [address] [id number] [address] [place] [place] [address], [place] [address] Jun, [facility] [address] [id number] [address] [place] [place] [address], [place] [address] Jun, [facility] [address] [id number] [address] [place] [place] [address], [place] [address] May, [facility] [address] [id number] [address] [place] [id number] May, [facility] [address] [id number] [address] [place] [place] [address], [place] [address] May, [facility] [address] [id number] [address] [place] [id number] May, [facility] [address] [id number] [address] [place] [address] May, [facility] [address] [id number] [address] [place] [id number] May, [facility] [address] [id number] [address] [place] [place] [address], [place] [address] Apr, [facility] [address] [id number] [address] [place] [id number] Apr, [facility] [address] [id number] [address] [place] [id number] Apr, [facility] [address] [id number] [address] [place] [id number] 20 Apr, 2012 [facility] [address] [id number] [address] [place] [place] [address], [place] [address] 19 Apr, 2012 [facility] [address] [id number] [address] [place] [place] [address], [place] [address] 17 Apr, 2012 [facility] [address] [id number] [address] [place] [place] [address], [place] [address] 13 Apr, 2012 [facility] [address] [id number] [address] [place] [place] [address], [place] [address] 11 Apr, 2012 [facility] [address] [id number] [address] [place] [place] [address], [place] [address] 09 Apr, 2013 [facility] [address] [id number] [address] [place] [place] [address], [place] [address] 05 Apr, 2013 [facility] [address] [id number] [address] [place] [place] [address], [place] [address] Mar, [facility] [address] [id number] [address] [place] [address], [place] [address] Nov, [facility] [address] [id number] [address] [place] [place] [address], [place] [address] Oct, [facility] [address] [id number] [address] [place] [place] [address], [place] [address] Oct, [facility] [address] [id number] [address] [place] [address], [place] [address] Sep, [facility] [address] [id number] [address] [place] [address], [place] [address] May, [facility] [address] [id number] [address] [place] [address], [place] [phone] May, [facility] [address] [id number] [address] [place] [address], [place] [phone] May, [facility] [address] [id number] [address] [place] [id number] May, [facility] [address] [id number] [address] [place] [id number] 24 Apr, 2012 [facility] [address] [id number] [address] [place] [phone] Apr, [facility] [address] [id number] [address] [place] [id number] Mar, [facility] [address] [id number] [address] [place] [id number] Feb, [facility] [address] [id number] [address] [place] [id number] Jul, [facility] [address] [id number] [address] [place] [phone] Jul, [facility] [address] [id number] [address] [place] [id number] Jul, [facility] [address] [id number] [address] [place] [id number] December, [facility] [address] [id number] [address] [place] [phone] December, [facility] [address] [id number] [address] [place] [phone] Oct, IMMUNIZATIONS No Known Immunizations SOCIAL HISTORY Never Assessed REASON FOR VISIT PLAN OF CARE VITAL SIGNS Height 68 in 2014-04-01 Weight 262.79 lbs 2014-04-01 Temperature 97.8 degrees Fahrenheit 2014-04-01 Heart Rate 88 bpm 2014-04-01 Respiratory Rate 20 2014-04-01 Blood pressure systolic 128 mmHg 2014-04-01 Blood pressure diastolic 80 mmHg 2014-04-01 MEDICATIONS Unknown Medications RESULTS No Results PROCEDURES Procedure Date Ordered Result Body Site URINE-NO MICRO Apr 01, 2014 INSTRUCTIONS MEDICATIONS ADMINISTERED No Known Medications MEDICAL (GENERAL) HISTORY Type Description Date Medical History anemia Medical History asthma Surgical History section x2 Surgical History hernia repair Hospitalization History surgeries Hospitalization History possible gallbladder problems Hospitalization History ER visit for UTI 09/12/15 Hospitalization History dizziness, blackout 12/28/2017
--- OUTSIDE RECORDS SUMMARY | 2019-10-07 05:28 | XMS REPORT ---
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 Name Role Phone MACK FARAH Unavailable PROBLEMS Type Condition ICD9-CM Code [id number] Code Onset Dates Condition S tatus SNOMED Code Problem Generalized anxiety disorder F41.1 A ctive 33199885 Problem Iron deficiency anemia secondary to inadequate d ietary iron intake D50.8 Active 914812636 Problem Elevated erythrocyte sedimentation rate R70.0 Active [id number] Problem Primary insomnia F51.01 Active 397 2004 ALLERGIES No Information ENCOUNTERS Encounter Location Date Diagnosis [place] [address] [address] Feb, [facility] [address] [place] [address] 25 Sep, 2018 Fever, unspecified fever cau se R50.9 ; Sore throat J02.9 ; Cough R05 ; Influenza A J10.1 and BMI 40.0-44.9, adult Z68.41 [facility] [place] [id number] [place] [address] 15 Sep, 2018 Sore throat J02.9 ; Viral up per respiratory tract infection J06.9 and BMI 40.0-44.9, adult Z68.[address] [address] 04 Jul, 2018 Bacterial conjunctivitis of right eye H10.9 and BMI 40.0-44.9, adult Z68.41 [place] [address] [place] [id number] [address] [place] [address] 14 Jun, 2018 Viral URI J06.9 [facility] [address] [address] Jun, Viral upper respiratory infe ction J06.9 ; Acute gastroenteritis K52.9 and BMI 40.0-44.9, adult Z68.41 [place] [address] [address] May, Acute conjunctivitis of righ t eye, unspecified acute conjunctivitis type H10.31 ; Unspecified mood [affective] disorder F39 ; Generalized anxiety disorder F41.1 and BMI 40.0-44.9, adult Z68.41 [place] [address] [address] May, [place] [address] [address] Apr, Other specified abnormal fin dings of blood chemistry R79.89 [facility] [address] [address] Apr, Sore throat J02.9 ; Diarrhea , unspecified R19.7 and Vomiting, unspecified R11.[address] [address] Apr, Chronic fatigue R53.82 ; Rey sea R11.0 and Lyme disease A69.[address] [address] Apr, [address] [address] Mar, Generalized anxiety disorder F41.1 ; Unspecified mood [affective] disorder F39 ; BMI 40.0-44.9, adult Z68.41 and Myalgia M79.1 [place] [address] [address] Feb, Elevated erythrocyte sedimen tation rate R70.[address] [address] Feb, Elevated erythrocyte sedimen tation rate R70.0 [facility] [address] [facility] [id number] [address] [place] [address] Feb, Unprotected sexual intercour se Z72.51 ; Pain in left knee M25.562 and Pain in joints of right hand M25.541 [facility] [address] [place] [address] Feb, Pain in left knee M25.562 an d Pain in joints of right hand M25.541 [place] [address] [address] Feb, Unspecified mood [affective] disorder F39 ; Generalized anxiety disorder F41.1 ; Pain in joints of right hand M25.541 ; Pain in joints of left hand M25.542 ; Pain in right knee M25.561 ; Pain in left knee M25.562 and Morbid (severe) obesity due to excess calories E66.01 [facility] [address] [place] [id number] [address] [place] [address] Jan, Sore throat J02.9 ; Strep th roat J02.0 ; BMI 40.0-44.9, adult Z68.41 ; Dysuria R30.0 and Acute cystitis with hematuria N30.01 [place] [address] [place] [address] Jan, [place] [address] [place] [id number] [place] [address] December, Abnormal MRI of head R93.0 [place] [address] [place] [id number] [place] [address] December, Subcutaneous nodules R22.9 ; Syncope, unspecified syncope type R55 ; Abnormal MRI of head R93.0 and Iron deficiency anemia secondary to inadequate dietary iron intake D50.8 [place] [address] [place] [id number] [place] [address] December, [place] [id number] [place] [address] December, Iron deficiency anemia secon chuck to inadequate dietary iron intake D50.8 and BMI 40.0-44.9, adult Z68.41 [facility] [address] [place] [address] Nov, Gastroenteritis K52.9 [place] [address] [address] Nov, [place] [address] [address] Nov, Bilateral hand swelling M79. 89 ; Amenorrhea N91.2 ; Desire for Z31.9 ; Amenorrhea, unspecified N91.2 ; Bilateral swelling of feet M79.89 ; Rash R21 and Iron deficiency anemia, unspecified iron deficiency anemia type D50.9 [place] [address] [place] [id number] [place] [address] Nov, Bilateral hand swelling M79. 89 ; Bilateral swelling of feet M79.89 and Rash R21 [place] [address] [address] Sep, Desire for Z31.9 a nd Amenorrhea N91.2 [facility] [address] [place] [address] Aug, Scabies B86 [place] [address] [place] [id number] [place] [address] Aug, Amenorrhea, unspecified N91. 2 [place] [address] [address] Aug, Amenorrhea, unspecified N91. 2 [place] [address] [place] [id number] [place] [address] Aug, Amenorrhea N91.2 and Iron de ficiency anemia, unspecified iron deficiency anemia type D50.9 [facility] [address] [facility] [id number] [address] [place] [address] Aug, Iron deficiency anemia secon chuck to inadequate dietary iron intake D50.8 ; Amenorrhea N91.2 ; Generalized anxiety disorder F41.1 ; Unspecified mood [affective] disorder F39 and Nausea R11.0 [facility] [address] [facility] [id number] [address] [place] [address] Jul, Non-intractable vomiting wit h nausea, unspecified vomiting type R11.2 and Pleurisy R09.1 [facility] [address] [facility] [id number] [address] [place] [address] Jul, [facility] [address] [facility] [id number] [address] [place] [address] Jun, Unspecified mood [affective] disorder F39 [facility] [address] [place] [id number] [place] [address] Jun, Unspecified mood [affective] disorder F39 and Generalized anxiety disorder F41.1 [facility] [address] [facility] [id number] [address] [place] [address] May, Bilious vomiting with nausea R11.14 [facility] [address] [facility] [id number] [address] [place] [address] May, Unspecified mood [affective] disorder F39 ; Generalized anxiety disorder F41.1 and Iron deficiency anemia, unspecified iron deficiency anemia type D50.9 [facility] [address] [place] [id number] [place] [address] Apr, Unspecified mood [affective] disorder F39 [facility] [address] [facility] [id number] [address] [place] [address] Apr, Iron deficiency anemia, unsp ecified iron deficiency anemia type D50.9 [facility] [address] [facility] [id number] [address] [place] [address] Apr, Iron deficiency anemia, unsp ecified iron deficiency anemia type D50.9 [facility] [address] [facility] [id number] [address] [place] [address] 18 Apr, 2017 Unspecified mood [affective] disorder F39 [facility] [address] [facility] [id number] [address] [place] [address] 07 Apr, 2017 Abnormal CBC R79.89 [facility] [address] [facility] [id number] [address] [place] [address] 07 Apr, 2017 Abnormal CBC R79.89 [facility] [address] [facility] [id number] [address] [place] [address] 05 Apr, 2017 Encounter to establish care with new doctor Z76.89 ; Unspecified mood [affective] disorder F39 and Primary insomnia F51.01 [facility] [address] [facility] [id number] [address] [place] [address] Mar, Unspecified mood [affective] disorder F39 and Generalized anxiety disorder F41.1 [facility] [address] [facility] [id number] [address] [place] [address] Mar, Sore throat J02.9 and Strep pharyngitis J02.0 [facility] [address] [id number] Feb, Dental examination Z01.20 [facility] [address] [place] [id number] [place] [id number] Jan, Encounter for dental examina tion Z01.20 [facility] [address] [place] [id number] [place] [address] Nov, Fever, unspecified R50.9 and Acute nasopharyngitis J00 [facility] [address] [facility] [id number] [address] [place] [address] 18 Sep, 2015 Abdominal pain, acute, right upper quadrant 789.01 [facility] [address] [facility] [id number] [address] [place] [address] 10 Sep, 2015 [facility] [address] [place] [id number] [place] [address] Aug, Irritable bowel syndrome wit h diarrhea K58.0 [facility] [address] [facility] [id number] [address] [place] [address] Aug, Urinary tract infection, sit e not specified N39.0 and Back pain M54.9 [facility] [address] [place] [id number] [address] [place] [address] Mar, Abdominal pain, acute, right upper quadrant 789.01 [facility] [address] [place] [id number] [address] [place] [address] Mar, [facility] [address] [place] [id number] [place] [address] Mar, Nausea 787.02 and Abdominal pain, acute, right upper quadrant 789.01 [facility] [address] [place] [id number] [place] [address] Mar, Nausea 787.02 and Abdominal pain 789.00 [facility] [address] [place] [id number] [place] [address] Mar, Nausea 787.02 [facility] [address] [place] [id number] [place] [address] Jan, Amenorrhea 626.0 [facility] [address] [place] [id number] [place] [address] Jan, Amenorrhea 626.0 and Obesity 278.00 [facility] [address] [place] [id number] [place] [address] December, Amenorrhea 626.0 and Cough 7 86.2 [facility] [address] [place] [id number] [place] [address] Nov, [facility] [address] [place] [id number] [place] [address] Nov, [facility] [address] [place] [id number] [place] [address] May, [facility] [address] [id number] [address] [place] [address], [place] [address] May, [facility] [address] [id number] [address] [place] [address], [place] [address] Mar, [facility] [address] [id number] [address] [place] [address], [place] [address] Mar, [facility] [address] [id number] [address] [place] [address], [place] [address] Mar, [facility] [address] [id number] [address] [place] [address], [place] [address] Mar, [facility] [address] [id number] [address] [place] [address], [place] [address] Mar, [facility] [address] [id number] [address] [place] [address], [place] [address] Mar, [facility] [address] [id number] [address] [place] [address], [place] [address] Mar, [facility] [address] [id number] [address] [place] [address], [place] [address] Mar, [facility] [address] [id number] [address] [place] [address], [place] [address] Mar, [facility] [address] [id number] [address] [place] [address], [place] [address] Mar, [facility] [address] [id number] [address] [place] [address], [place] [address] Mar, [facility] [address] [id number] [address] [place] [address], [place] [address] Mar, [facility] [address] [id number] [address] [place] [address], [place] [address] Mar, [facility] [address] [id number] [address] [place] [address], [place] [address] Mar, [facility] [address] [id number] [address] [place] [address], [place] [address] Mar, [facility] [address] [id number] [address] [place] [address], [place] [address] Feb, 2013 [facility] [address] [id number] [address] [place] [address], [place] [address] Feb, 2013 [facility] [address] [id number] [address] [place] [address], [place] [address] Feb, 2013 [facility] [address] [id number] [address] [place] [address], [place] [address] Feb, 2013 [facility] [address] [id number] [address] [place] [address], [place] [address] Feb, 2013 [facility] [address] [id number] [address] [place] [address], [place] [address] Feb, 2013 [facility] [address] [id number] [address] [place] [address], [place] [address] Feb, 2013 [facility] [address] [id number] [address] [place] [address], [place] [address] Feb, 2013 [facility] [address] [id number] [address] [place] [address], [place] [address] Feb, 2013 [facility] [address] [id number] [address] [place] [address], [place] [address] Feb, 2013 [facility] [address] [id number] [address] [place] [address], [place] [address] Feb, 2013 [facility] [address] [id number] [address] [place] [address], [place] [address] Feb, 2013 [facility] [address] [id number] [address] [place] [address], [place] [address] Feb, 2013 [facility] [address] [id number] [address] [place] [address], [place] [address] Feb, 2013 [facility] [address] [id number] [address] [place] [address], [place] [address] Feb, 2013 [facility] [address] [id number] [facility] [place] [address] Jan, [facility] [address] [id number] [facility] [place] [address] Jan, [facility] [address] [id number] [facility] [place] [address] Jan, [facility] [address] [id number] [facility] [place] [address] Jan, [facility] [address] [id number] [facility] [place] [address] Jan, [facility] [address] [id number] [address] [place] [address], [place] [address] Jan, [facility] [address] [id number] [address] [place] [address], [place] [address] Jan, [facility] [address] [id number] [address] [place] [address], [place] [address] Jan, [facility] [address] [id number] [address] [place] [address], [place] [address] Jan, [facility] [address] [id number] [address] [place] [address], [place] [address] Jan, [facility] [address] [id number] [address] [place] [address], [place] [address] Jan, [facility] [address] [id number] [address] [place] [address], [place] [address] Jan, [facility] [address] [id number] [address] [place] [address], [place] [address] Jan, [facility] [address] [id number] [address] [place] [address], [place] [address] December, [facility] [address] [id number] [address] [place] [address], [place] [address] December, [facility] [address] [id number] [address] [place] [address], [place] [address] December, [facility] [address] [id number] [facility] [place] [address] December, [facility] [address] [id number] [address] [place] [address], [place] [address] December, [facility] [address] [id number] [address] [place] [address], [place] [address] December, [facility] [address] [id number] [address] [place] [address], [place] [address] December, [facility] [address] [id number] [address] [place] [address], [place] [address] December, [facility] [address] [id number] [address] [place] [address], [place] [address] December, [facility] [address] [id number] [address] [place] [address], [place] [address] December, [facility] [address] [id number] [address] [place] [address], [place] [address] December, [facility] [address] [id number] [address] [place] [address], [place] [address] December, [facility] [address] [id number] [address] [place] [address], [place] [address] Nov, [facility] [address] [id number] [address] [place] [address], [place] [address] Nov, [facility] [address] [id number] [address] [place] [address], [place] [address] Oct, [facility] [address] [id number] [address] [place] [address], [place] [address] Oct, [facility] [address] [id number] [address] [place] [address], [place] [address] Oct, [facility] [address] [id number] [address] [place] [address], [place] [address] Oct, [facility] [address] [id number] [address] [place] [address], [place] [address] 19 Oct, 2013 [facility] [address] [id number] [facility] [place] [address] 19 Oct, 2013 [facility] [address] [id number] [facility] [place] [address] 19 Oct, 2013 [facility] [address] [id number] [facility] [place] [address] 19 Oct, 2013 [facility] [address] [id number] [facility] [place] [address] 18 Oct, 2013 [facility] [address] [id number] [address] [place] [address], [place] [address] 08 Oct, 2013 [facility] [address] [id number] [address] [place] [address], [place] [address] 07 Oct, 2013 [facility] [address] [id number] [address] [place] [address], [place] [address] 06 Oct, 2013 [facility] [address] [id number] [address] [place] [address], [place] [address] 06 Oct, 2013 [facility] [address] [id number] [address] [place] [address], [place] [address] 05 Oct, 2013 [facility] [address] [id number] [address] [place] [address], [place] [address] 05 Oct, 2013 [facility] [address] [id number] [address] [place] [address], [place] [address] 05 Oct, 2013 [facility] [address] [id number] [address] [place] [address], [place] [address] 05 Oct, 2013 [facility] [address] [id number] [address] [place] [address], [place] [address] Sep, [facility] [address] [id number] [address] [place] [address], [place] [address] Sep, [facility] [address] [id number] [address] [place] [address], [place] [address] Sep, [facility] [address] [id number] [address] [place] [address], [place] [address] Jun, [facility] [address] [id number] [address] [place] [address], [place] [address] Jun, [facility] [address] [id number] [address] [place] [address], [place] [address] Jun, [facility] [address] [id number] [address] [place] [address], [place] [address] Jun, [facility] [address] [id number] [address] [place] [address], [place] [address] Jun, [facility] [address] [id number] [address] [place] [address], [place] [address] Jun, [facility] [address] [id number] [address] [place] [address], [place] [address] May, [facility] [address] [id number] [address] [place] [address], [place] [address] May, [facility] [address] [id number] [address] [place] [address], [place] [address] May, [facility] [address] [id number] [address] [place] [id number] May, [facility] [address] [id number] [address] [place] [address] May, [facility] [address] [id number] [address] [place] [id number] May, [facility] [address] [id number] [address] [place] [address], [place] [address] Apr, [facility] [address] [id number] [address] [place] [address], [place] [address] Apr, [facility] [address] [id number] [address] [place] [address], [place] [address] Apr, [facility] [address] [id number] [address] [place] [id number] 20 Apr, 2012 [facility] [address] [id number] [address] [place] [address], [place] [address] 19 Apr, 2012 [facility] [address] [id number] [address] [place] [address], [place] [address] 17 Apr, 2012 [facility] [address] [id number] [address] [place] [address], [place] [address] 13 Apr, 2012 [facility] [address] [id number] [address] [place] [address], [place] [address] 11 Apr, 2012 [facility] [address] [id number] [address] [place] [address], [place] [address] 09 Apr, 2013 [facility] [address] [id number] [address] [place] [address], [place] [address] 05 Apr, 2013 [facility] [address] [id number] [address] [place] [address], [place] [address] Mar, [facility] [address] [id number] [address] [place] [address], [place] [address] Nov, [facility] [address] [id number] [address] [place] [address], [place] [address] Oct, [facility] [address] [id number] [address] [place] [address], [place] [address] Oct, [facility] [address] [id number] [address] [place] [address], [place] [address] Sep, [facility] [address] [id number] [address] [place] [address], [place] [address] May, [facility] [address] [id number] [address] [place] [address], [place] [address] May, [facility] [address] [id number] [address] [place] [address], [place] [address] May, [facility] [address] [id number] [address] [place] [address], [place] [address] May, [facility] [address] [id number] [address] [place] [id number] 24 Apr, 2012 [facility] [address] [id number] [address] [place] [address] [id number] Apr, [facility] [address] [id number] [address] [place] [id number] Mar, [facility] [address] [id number] [address] [place] [id number] Feb, [facility] [address] [id number] [address] [place] [id number] Jul, [facility] [address] [id number] [address] [place] [id number] Jul, [facility] [address] [id number] [address] [place] [id number] Jul, [facility] [address] [id number] [address] [place] [id number] December, [facility] [address] [id number] [address] [place] [id number] December, [facility] [address] [id number] [address] [place] [id number] Oct, IMMUNIZATIONS No Known Immunizations SOCIAL HISTORY [...]
--- OUTSIDE RECORDS SUMMARY | 2019-10-07 05:28 | XMS REPORT ---
Author Author Jailene FARAH Organization [facility] Address [address] [place] [address] Care Team Providers Care Case Finisher Name Role Phone MACK FARAH Unavailable PROBLEMS Type Condition ICD9-CM Code LRT01-UH Code Onset Dates Condition S tatus SNOMED Code Problem Generalized anxiety disorder F41.1 A ctive 63397029 Problem Iron deficiency anemia secondary to inadequate d ietary iron intake D50.8 Active 399411908 Problem Elevated erythrocyte sedimentation rate R70.0 Active [id number] Problem Primary insomnia F51.01 Active 397 2004 ALLERGIES No Information ENCOUNTERS Encounter Location Date Diagnosis [place] [address] [address] Feb, [facility] [address] [place] [address] 25 Sep, 2018 Fever, unspecified fever cau se R50.9 ; Sore throat J02.9 ; Cough R05 ; Influenza A J10.1 and BMI 40.0-44.9, adult Z68.41 [facility] [place] [id number] [address] [place] [address] 15 Sep, 2018 Sore throat J02.9 ; Viral up per respiratory tract infection J06.9 and BMI 40.0-44.9, adult Z68.[address] [address] 04 Jul, 2018 Bacterial conjunctivitis of right eye H10.9 and BMI 40.0-44.9, adult Z68.41 [place] [address] [address] [place] [id number] [place] [address] 14 Jun, 2018 Viral URI J06.9 [facility] [address] [address] Jun, Viral upper respiratory infe ction J06.9 ; Acute gastroenteritis K52.9 and BMI 40.0-44.9, adult Z68.41 [place] [address] [address] May, Acute conjunctivitis of righ t eye, unspecified acute conjunctivitis type H10.31 ; Unspecified mood [affective] disorder F39 ; Generalized anxiety disorder F41.1 and BMI 40.0-44.9, adult Z68.41 [place] [address] [address] May, [place] [address] [address] Apr, Other specified abnormal fin dings of blood chemistry R79.89 [facility] [address] [address] Apr, Sore throat J02.9 ; Diarrhea , unspecified R19.7 and Vomiting, unspecified R11.[address] [address] Apr, Chronic fatigue R53.82 ; Rey sea R11.0 and Lyme disease A69.[address] [address] Apr, [address] [address] Mar, Generalized anxiety disorder F41.1 ; Unspecified mood [affective] disorder F39 ; BMI 40.0-44.9, adult Z68.41 and Myalgia M79.1 [place] [address] [address] Feb, Elevated erythrocyte sedimen tation rate R70.[address] [address] Feb, Elevated erythrocyte sedimen tation rate R70.0 [facility] [address] [facility] [facility] [id number] [address] [place] [address] Feb, Unprotected sexual intercour se Z72.51 ; Pain in left knee M25.562 and Pain in joints of right hand M25.541 [facility] [address] [place] [address] Feb, Pain in left knee M25.562 an d Pain in joints of right hand M25.541 [place] [address] [address] Feb, Unspecified mood [affective] disorder F39 ; Generalized anxiety disorder F41.1 ; Pain in joints of right hand M25.541 ; Pain in joints of left hand M25.542 ; Pain in right knee M25.561 ; Pain in left knee M25.562 and Morbid (severe) obesity due to excess calories E66.01 [facility] [address] [place] [id number] [place] [address] Jan, Sore throat J02.9 ; Strep th roat J02.0 ; BMI 40.0-44.9, adult Z68.41 ; Dysuria R30.0 and Acute cystitis with hematuria N30.01 [place] [address] [place] [address] Jan, [place] [address] [place] [id number] [place] [address] December, Abnormal MRI of head R93.0 [place] [address] [address] [place] [id number] [place] [address] December, Subcutaneous nodules R22.9 ; Syncope, unspecified syncope type R55 ; Abnormal MRI of head R93.0 and Iron deficiency anemia secondary to inadequate dietary iron intake D50.8 [place] [address] [address] [place] [id number] [place] [address] December, [place] [id number] [place] [address] December, Iron deficiency anemia secon chuck to inadequate dietary iron intake D50.8 and BMI 40.0-44.9, adult Z68.41 [facility] [address] [place] [address] Nov, Gastroenteritis K52.9 [place] [address] [address] Nov, [place] [address] [address] Nov, Bilateral hand swelling M79. 89 ; Amenorrhea N91.2 ; Desire for Z31.9 ; Amenorrhea, unspecified N91.2 ; Bilateral swelling of feet M79.89 ; Rash R21 and Iron deficiency anemia, unspecified iron deficiency anemia type D50.9 [place] [address] [place] [id number] [place] [address] Nov, Bilateral hand swelling M79. 89 ; Bilateral swelling of feet M79.89 and Rash R21 [place] [address] [address] Sep, Desire for Z31.9 a nd Amenorrhea N91.2 [facility] IN [facility] [address] [place] [address] Aug, Scabies B86 [place] [address] [address] [place] [id number] [place] [address] Aug, Amenorrhea, unspecified N91. 2 [place] [address] [address] Aug, Amenorrhea, unspecified N91. 2 [place] [address] [address] [place] [id number] [place] [address] Aug, Amenorrhea N91.2 and Iron de ficiency anemia, unspecified iron deficiency anemia type D50.9 [facility] [address] [facility] [address] [facility] [id number] [address] [place] [address] Aug, Iron deficiency anemia secon chuck to inadequate dietary iron intake D50.8 ; Amenorrhea N91.2 ; Generalized anxiety disorder F41.1 ; Unspecified mood [affective] disorder F39 and Nausea R11.0 [facility] IN [facility] [address] [facility] [address] [facility] [id number] [address] [place] [address] Jul, Non-intractable vomiting wit h nausea, unspecified vomiting type R11.2 and Pleurisy R09.1 [facility] [address] [facility] [address] [facility] [id number] [address] [place] [address] Jul, [facility] [address] [facility] [address] [facility] [id number] [address] [place] [address] Jun, Unspecified mood [affective] disorder F39 [facility] [address] [place] [id number] [place] [address] Jun, Unspecified mood [affective] disorder F39 and Generalized anxiety disorder F41.1 [facility] [address] [facility] [address] [facility] [id number] [address] [place] [address] May, Bilious vomiting with nausea R11.14 [facility] [address] [facility] [address] [facility] [id number] [address] [place] [address] May, Unspecified mood [affective] disorder F39 ; Generalized anxiety disorder F41.1 and Iron deficiency anemia, unspecified iron deficiency anemia type D50.9 [facility] [address] [place] [id number] [place] [address] Apr, Unspecified mood [affective] disorder F39 [facility] [address] [facility] [address] [facility] [id number] [address] [place] [address] Apr, Iron deficiency anemia, unsp ecified iron deficiency anemia type D50.9 [facility] [address] [facility] [address] [facility] [id number] [address] [place] [address] Apr, Iron deficiency anemia, unsp ecified iron deficiency anemia type D50.9 [facility] [address] [facility] [address] [facility] [id number] [address] [place] [id number] 18 Apr, 2017 Unspecified mood [affective] disorder F39 [facility] [address] [facility] [address] [facility] [id number] [address] [place] [phone] 07 Apr, 2017 Abnormal CBC R79.89 [facility] [address] [facility] [address] [facility] [id number] [address] [place] [address] 07 Apr, 2017 Abnormal CBC R79.89 [facility] [address] [facility] [address] [facility] [id number] [address] [place] [phone] 05 Apr, 2017 Encounter to establish care with new doctor Z76.89 ; Unspecified mood [affective] disorder F39 and Primary insomnia F51.01 [facility] [address] [facility] [address] [facility] [id number] [address] [place] [address] Mar, Unspecified mood [affective] disorder F39 and Generalized anxiety disorder F41.1 [facility] [address] [facility] [address] [facility] [id number] [address] [place] [address] Mar, Sore throat J02.9 and Strep pharyngitis J02.0 [facility] [address] [id number] Feb, Dental examination Z01.20 [facility] [address] [place] [id number] [place] [id number] Jan, Encounter for dental examina tion Z01.20 [facility] [address] [place] [id number] [address] [place] [address] Nov, Fever, unspecified R50.9 and Acute nasopharyngitis J00 [facility] [address] [facility] [address] [facility] [id number] [address] [place] [address] 18 Sep, 2015 Abdominal pain, acute, right upper quadrant 789.01 [facility] [address] [facility] [address] [facility] [id number] [address] [place] [phone] 10 Sep, 2015 [facility] [address] [place] [id number] [place] [phone] Aug, Irritable bowel syndrome wit h diarrhea K58.0 [facility] [address] [facility] [address] [facility] [id number] [address] [place] [phone] Aug, Urinary tract infection, sit e not specified N39.0 and Back pain M54.9 [facility] [address] [place] [id number] [place] [phone] Mar, Abdominal pain, acute, right upper quadrant 789.01 [facility] [address] [place] [id number] [place] [address] Mar, [facility] [address] [place] [id number] [place] [address] Mar, Nausea 787.02 and Abdominal pain, acute, right upper quadrant 789.01 [facility] [address] [place] [id number] [place] [address] Mar, Nausea 787.02 and Abdominal pain 789.00 [facility] [address] [place] [id number] [place] [address] Mar, Nausea 787.02 [facility] [address] [place] [id number] [place] [address] Jan, Amenorrhea 626.0 [facility] [address] [place] [id number] [place] [phone] Jan, Amenorrhea 626.0 and Obesity 278.00 [facility] [address] [place] [id number] [place] [address] December, Amenorrhea 626.0 and Cough 7 86.2 [facility] [address] [place] [id number] [place] [phone] Nov, [facility] [address] [place] [id number] [place] [phone] Nov, [facility] [address] [place] [id number] [place] [address] May, [facility] [address] [id number] [address] [place] [address], [place] [address] May, [facility] [address] [id number] [address] [place] [address], [place] [address] Mar, [facility] [address] [id number] [address] [place] [address], [place] [address] Mar, [facility] [address] [id number] [address] [place] [address], [place] [address] Mar, [facility] [address] [id number] [address] [place] [address], [place] [address] Mar, [facility] [address] [id number] [address] [place] [address], [place] [address] Mar, [facility] [address] [id number] [address] [place] [address], [place] [address] Mar, [facility] [address] [id number] [address] [place] [address], [place] [address] Mar, [facility] [address] [id number] [address] [place] [address], [place] [address] Mar, [facility] [address] [id number] [address] [place] [address], [place] [address] Mar, [facility] [address] [id number] [address] [place] [address], [place] [address] Mar, [facility] [address] [id number] [address] [place] [address], [place] [address] Mar, [facility] [address] [id number] [address] [place] [address], [place] [address] Mar, [facility] [address] [id number] [address] [place] [address], [place] [address] Mar, [facility] [address] [id number] [address] [place] [address], [place] [address] Mar, [facility] [address] [id number] [address] [place] [address], [place] [address] Mar, [facility] [address] [id number] [address] [place] [address], [place] [address] Feb, 2013 [facility] [address] [id number] [address] [place] [address], [place] [address] Feb, 2013 [facility] [address] [id number] [address] [place] [address], [place] [address] Feb, 2013 [facility] [address] [id number] [address] [place] [address], [place] [address] Feb, 2013 [facility] [address] [id number] [address] [place] [address], [place] [address] Feb, 2013 [facility] [address] [id number] [address] [place] [address], [place] [address] Feb, 2013 [facility] [address] [id number] [address] [place] [address], [place] [address] Feb, 2013 [facility] [address] [id number] [address] [place] [address], [place] [address] Feb, 2013 [facility] [address] [id number] [address] [place] [address], [place] [address] Feb, 2013 [facility] [address] [id number] [address] [place] [address], [place] [address] Feb, 2013 [facility] [address] [id number] [address] [place] [address], [place] [address] Feb, 2013 [facility] [address] [id number] [address] [place] [address], [place] [address] Feb, 2013 [facility] [address] [id number] [address] [place] [address], [place] [address] Feb, 2013 [facility] [address] [id number] [address] [place] [address], [place] [address] Feb, 2013 [facility] [address] [id number] [address] [place] [address], [place] [address] Feb, 2013 [facility] [address] [id number] [facility] [place] [address] Jan, [facility] [address] [id number] [facility] [place] [address] Jan, [facility] [address] [id number] [facility] [place] [address] Jan, [facility] [address] [id number] [facility] [place] [address] Jan, [facility] [address] [id number] [facility] [place] [address] Jan, [facility] [address] [id number] [address] [place] [address], [place] [address] Jan, [facility] [address] [id number] [address] [place] [address], [place] [address] Jan, [facility] [address] [id number] [address] [place] [address], [place] [address] Jan, [facility] [address] [id number] [address] [place] [address], [place] [address] Jan, [facility] [address] [id number] [address] [place] [address], [place] [address] Jan, [facility] [address] [id number] [address] [place] [address], [place] [address] Jan, [facility] [address] [id number] [address] [place] [address], [place] [address] Jan, [facility] [address] [id number] [address] [place] [address], [place] [address] Jan, [facility] [address] [id number] [address] [place] [address], [place] [address] December, [facility] [address] [id number] [address] [place] [address], [place] [address] December, [facility] [address] [id number] [address] [place] [address], [place] [address] December, [facility] [address] [id number] [facility] [place] [address] December, [facility] [address] [id number] [address] [place] [address], [place] [address] December, [facility] [address] [id number] [address] [place] [address], [place] [address] December, [facility] [address] [id number] [address] [place] [address], [place] [address] December, [facility] [address] [id number] [address] [place] [address], [place] [address] December, [facility] [address] [id number] [address] [place] [address], [place] [address] December, [facility] [address] [id number] [address] [place] [address], [place] [address] December, [facility] [address] [id number] [address] [place] [address], [place] [address] December, [facility] [address] [id number] [address] [place] [address], [place] [address] December, [facility] [address] [id number] [address] [place] [address], [place] [address] Nov, [facility] [address] [id number] [address] [place] [address], [place] [address] Nov, [facility] [address] [id number] [address] [place] [address], [place] [address] Oct, [facility] [address] [id number] [address] [place] [address], [place] [address] Oct, [facility] [address] [id number] [address] [place] [address], [place] [address] Oct, [facility] [address] [id number] [address] [place] [address], [place] [address] Oct, [facility] [address] [id number] [address] [place] [address], [place] [address] 19 Oct, 2013 [facility] [address] [id number] [facility] [place] [address] 19 Oct, 2013 [facility] [address] [id number] [facility] [place] [address] 19 Oct, 2013 [facility] [address] [id number] [facility] [place] [address] 19 Oct, 2013 [facility] [address] [id number] [facility] [place] [address] 18 Oct, 2013 [facility] [address] [id number] [address] [place] [address], [place] [address] 08 Oct, 2013 [facility] [address] [id number] [address] [place] [address], [place] [address] 07 Oct, 2013 [facility] [address] [id number] [address] [place] [address], [place] [address] 06 Oct, 2013 [facility] [address] [id number] [address] [place] [address], [place] [address] 06 Oct, 2013 [facility] [address] [id number] [address] [place] [address], [place] [address] 05 Oct, 2013 [facility] [address] [id number] [address] [place] [address], [place] [address] 05 Oct, 2013 [facility] [address] [id number] [address] [place] [address], [place] [address] 05 Oct, 2013 [facility] [address] [id number] [address] [place] [address], [place] [address] 05 Oct, 2013 [facility] [address] [id number] [address] [place] [address], [place] [address] Sep, [facility] [address] [id number] [address] [place] [address], [place] [address] Sep, [facility] [address] [id number] [address] [place] [address], [place] [address] Sep, [facility] [address] [id number] [address] [place] [address], [place] [address] Jun, [facility] [address] [id number] [address] [place] [address], [place] [address] Jun, [facility] [address] [id number] [address] [place] [address], [place] [address] Jun, [facility] [address] [id number] [address] [place] [address], [place] [address] Jun, [facility] [address] [id number] [address] [place] [address], [place] [address] Jun, [facility] [address] [id number] [address] [place] [address], [place] [address] Jun, [facility] [address] [id number] [address] [place] [address], [place] [address] May, [facility] [address] [id number] [address] [place] [address], [place] [address] May, [facility] [address] [id number] [address] [place] [address], [place] [address] May, [facility] [address] [id number] [address] [place] [id number] May, [facility] [address] [id number] [address] [place] [id number] May, [facility] [address] [id number] [address] [place] [id number] May, [facility] [address] [id number] [address] [place] [address], [place] [address] Apr, [facility] [address] [id number] [address] [place] [address], [place] [address] Apr, [facility] [address] [id number] [address] [place] [address], [place] [address] Apr, [facility] [address] [id number] [address] [place] [id number] 20 Apr, 2012 [facility] [address] [id number] [address] [place] [address], [place] [address] 19 Apr, 2012 [facility] [address] [id number] [address] [place] [address], [place] [address] 17 Apr, 2012 [facility] [address] [id number] [address] [place] [address], [place] [address] 13 Apr, 2012 [facility] [address] [id number] [address] [place] [address], [place] [address] 11 Apr, 2012 [facility] [address] [id number] [address] [place] [address], [place] [address] 09 Apr, 2013 [facility] [address] [id number] [address] [place] [address], [place] [address] 05 Apr, 2013 [facility] [address] [id number] [address] [place] [address], [place] [address] Mar, [facility] [address] [id number] [address] [place] [address], [place] [address] Nov, [facility] [address] [id number] [address] [place] [address], [place] [address] Oct, [facility] [address] [id number] [address] [place] [address], [place] [address] Oct, [facility] [address] [id number] [address] [place] [address], [place] [address] Sep, [facility] [address] [id number] [place] [address], [place] [phone] May, [facility] [address] [id number] [address] [place] [address], [place] [phone] May, [facility] [address] [id number] [address] [place] [address], [place] [phone] May, [facility] [address] [id number] [address] [place] [address], [place] [phone] May, [facility] [address] [id number] [address] [place] [id number] 24 Apr, 2012 [facility] [address] [id number] [address] [place] [phone] Apr, [facility] [address] [id number] [address] [place] [id number] Mar, [facility] [address] [id number] [address] [place] [phone] Feb, [facility] [address] [id number] [address] [place] [phone] Jul, [facility] [address] [id number] [address] [place] [id number] Jul, [facility] [address] [id number] [address] [place] [id number] Jul, [facility] [address] [id number] [address] [place] [phone] December, [facility] [address] [id number] [address] [place] [id number] December, [facility] [address] [id number] [address] [place] [id number] Oct, IMMUNIZATIONS No Known Immunizations SOCIAL HISTORY [...]
--- OUTSIDE RECORDS SUMMARY | 2019-10-07 05:28 | XMS REPORT ---
Author Author Jailene FARAH Organization 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 [address] [place] [address] 25 Sep, 2018 Fever, unspecified fever cau se R50.9 ; Sore throat J02.9 ; Cough R05 ; Influenza A J10.1 and BMI 40.0-44.9, adult Z68.41 [facility] [place] [id number] [place] [address] 15 Sep, 2018 Sore throat J02.9 ; Viral up per respiratory tract infection J06.9 and BMI 40.0-44.9, adult Z68.[address] [address] 04 Jul, 2018 Bacterial conjunctivitis of right eye H10.9 and BMI 40.0-44.9, adult Z68.41 [place] [address] [place] [id number] [place] [address] 14 Jun, 2018 Viral URI J06.9 [facility] [address] [address] Jun, Viral upper respiratory infe ction J06.9 ; Acute gastroenteritis K52.9 and BMI 40.0-44.9, adult Z68.41 [place] [address] [address] May, Acute conjunctivitis of righ t eye, unspecified acute conjunctivitis type H10.31 ; Unspecified mood [affective] disorder F39 ; Generalized anxiety disorder F41.1 and BMI 40.0-44.9, adult Z68.41 [place] [address] [address] May, [place] [address] [address] Apr, Other specified abnormal fin dings of blood chemistry R79.89 [facility] [address] [address] Apr, Sore throat J02.9 ; Diarrhea , unspecified R19.7 and Vomiting, unspecified R11.[address] [address] Apr, Chronic fatigue R53.82 ; Rey sea R11.0 and Lyme disease A69.[address] [address] Apr, [address] [address] Mar, Generalized anxiety disorder F41.1 ; Unspecified mood [affective] disorder F39 ; BMI 40.0-44.9, adult Z68.41 and Myalgia M79.1 [place] [address] [address] Feb, Elevated erythrocyte sedimen tation rate R70.[address] [address] Feb, Elevated erythrocyte sedimen tation rate R70.0 [facility] [address] [facility] [id number] [address] [place] [address] Feb, Unprotected sexual intercour se Z72.51 ; Pain in left knee M25.562 and Pain in joints of right hand M25.541 [facility] [address] [place] [address] Feb, Pain in left knee M25.562 an d Pain in joints of right hand M25.541 [place] [address] [address] Feb, Unspecified mood [affective] disorder F39 ; Generalized anxiety disorder F41.1 ; Pain in joints of right hand M25.541 ; Pain in joints of left hand M25.542 ; Pain in right knee M25.561 ; Pain in left knee M25.562 and Morbid (severe) obesity due to excess calories E66.01 [facility] [address] [place] [id number] [address] [place] [address] Jan, Sore throat J02.9 ; Strep th roat J02.0 ; BMI 40.0-44.9, adult Z68.41 ; Dysuria R30.0 and Acute cystitis with hematuria N30.01 [place] [address] [place] [address] Jan, [place] [address] [place] [id number] [place] [address] December, Abnormal MRI of head R93.0 [place] [address] [place] [id number] [place] [address] December, Subcutaneous nodules R22.9 ; Syncope, unspecified syncope type R55 ; Abnormal MRI of head R93.0 and Iron deficiency anemia secondary to inadequate dietary iron intake D50.8 [place] [address] [place] [id number] [address] [place] [address] December, [place] [id number] [place] [address] December, Iron deficiency anemia secon chuck to inadequate dietary iron intake D50.8 and BMI 40.0-44.9, adult Z68.41 [facility] [address] [place] [address] Nov, Gastroenteritis K52.9 [place] [address] [address] Nov, [place] [address] [address] Nov, Bilateral hand swelling M79. 89 ; Amenorrhea N91.2 ; Desire for Z31.9 ; Amenorrhea, unspecified N91.2 ; Bilateral swelling of feet M79.89 ; Rash R21 and Iron deficiency anemia, unspecified iron deficiency anemia type D50.9 [place] [address] [place] [id number] [place] [address] Nov, Bilateral hand swelling M79. 89 ; Bilateral swelling of feet M79.89 and Rash R21 [place] [address] [address] Sep, Desire for Z31.9 a nd Amenorrhea N91.2 [facility] [address] [place] [address] Aug, Scabies B86 [place] [address] [place] [id number] [place] [address] Aug, Amenorrhea, unspecified N91. 2 [place] [address] [address] Aug, Amenorrhea, unspecified N91. 2 [place] [address] [place] [id number] [address] [place] [address] Aug, Amenorrhea N91.2 and Iron de ficiency anemia, unspecified iron deficiency anemia type D50.9 [facility] [address] [facility] [id number] [address] [place] [address] Aug, Iron deficiency anemia secon chuck to inadequate dietary iron intake D50.8 ; Amenorrhea N91.2 ; Generalized anxiety disorder F41.1 ; Unspecified mood [affective] disorder F39 and Nausea R11.0 [facility] [address] [facility] [id number] [address] [place] [address] Jul, Non-intractable vomiting wit h nausea, unspecified vomiting type R11.[address] [facility] [address] [facility] [id number] [address] [place] [address] Jul, [facility] [address] [facility] [id number] [address] [place] [address] Jun, Unspecified mood [affective] disorder F39 [facility] [address] [place] [id number] [address] [place] [address] Jun, Unspecified mood [affective] disorder F39 and Generalized anxiety disorder F41.1 [facility] [address] [facility] [id number] [address] [place] [address] May, Bilious vomiting with nausea R11.14 [facility] [address] [facility] [id number] [address] [place] [address] May, Unspecified mood [affective] disorder F39 ; Generalized anxiety disorder F41.1 and Iron deficiency anemia, unspecified iron deficiency anemia type D50.9 [facility] [address] [place] [id number] [address] [place] [address] Apr, Unspecified mood [affective] disorder F39 [facility] [address] [facility] [id number] [address] [place] [address] Apr, Iron deficiency anemia, unsp ecified iron deficiency anemia type D50.9 [facility] [address] [facility] [id number] [address] [place] [address] Apr, Iron deficiency anemia, unsp ecified iron deficiency anemia type D50.9 [facility] [address] [facility] [id number] [address] [place] [address] 18 Apr, 2017 Unspecified mood [affective] disorder F39 [facility] [address] [facility] [id number] [address] [place] [address] 07 Apr, [address] [facility] [address] [facility] [id number] [address] [place] [address] 07 Apr, [address] [facility] [address] [facility] [id number] [address] [place] [address] 05 Apr, 2017 Encounter to establish care with new doctor Z76.89 ; Unspecified mood [affective] disorder F39 and Primary insomnia F51.01 [facility] [address] [facility] [id number] [address] [place] [address] Mar, Unspecified mood [affective] disorder F39 and Generalized anxiety disorder F41.1 [facility] [address] [facility] [id number] [address] [place] [address] Mar, Sore throat J02.9 and Strep pharyngitis J02.0 [facility] [address] [id number] Feb, Dental examination Z01.20 [facility] [address] [place] [id number] [place] [id number] Jan, Encounter for dental examina tion Z01.20 [facility] [address] [place] [id number] [address] [place] [address] Nov, Fever, unspecified R50.9 and Acute nasopharyngitis J00 [facility] [address] [facility] [id number] [address] [place] [address] 18 Sep, 2015 Abdominal pain, acute, right upper quadrant 789.01 [facility] [address] [facility] [id number] [address] [place] [address] 10 Sep, 2015 [facility] [address] [place] [id number] [address] [place] [address] Aug, Irritable bowel syndrome wit h diarrhea K58.0 [facility] [address] [facility] [id number] [address] [place] [address] Aug, Urinary tract infection, sit e not specified N39.0 and Back pain M54.9 [facility] [address] [place] [id number] [address] [place] [address] Mar, Abdominal pain, acute, right upper quadrant 789.01 [facility] [address] [place] [id number] [address] [place] [address] Mar, [facility] [address] [place] [id number] [place] [address] Mar, Nausea 787.02 and Abdominal pain, acute, right upper quadrant 789.01 [facility] [address] [place] [id number] [address] [place] [address] Mar, Nausea 787.02 and Abdominal pain 789.00 [facility] [address] [place] [id number] [address] [place] [address] Mar, Nausea 787.02 [facility] [address] [place] [id number] [place] [address] Jan, Amenorrhea 626.0 [facility] [address] [place] [id number] [address] [place] [address] Jan, Amenorrhea 626.[address] [facility] [address] [place] [id number] [address] [place] [address] December, Amenorrhea 626.0 and Cough [address] [facility] [address] [place] [id number] [address] [place] [address] Nov, [facility] [address] [place] [id number] [address] [place] [address] Nov, [facility] [address] [place] [id number] [place] [address] May, [facility] [address] [id number] [address] [place] [address], [place] [address] May, [facility] [address] [id number] [address] [place] [address], [place] [address] Mar, [facility] [address] [id number] [address] [place] [address], [place] [address] Mar, [facility] [address] [id number] [address] [place] [address], [place] [address] Mar, [facility] [address] [id number] [address] [place] [address], [place] [address] Mar, [facility] [address] [id number] [address] [place] [address], [place] [address] Mar, [facility] [address] [id number] [address] [place] [address], [place] [address] Mar, [facility] [address] [id number] [address] [place] [address], [place] [address] Mar, [facility] [address] [id number] [address] [place] [address], [place] [address] Mar, [facility] [address] [id number] [address] [place] [address], [place] [address] Mar, [facility] [address] [id number] [address] [place] [address], [place] [address] Mar, [facility] [address] [id number] [address] [place] [address], [place] [address] Mar, [facility] [address] [id number] [address] [place] [address], [place] [address] Mar, [facility] [address] [id number] [address] [place] [address], [place] [address] Mar, [facility] [address] [id number] [address] [place] [address], [place] [address] Mar, [facility] [address] [id number] [address] [place] [address], [place] [address] Mar, [facility] [address] [id number] [address] [place] [address], [place] [address] Feb, 2013 [facility] [address] [id number] [address] [place] [address], [place] [address] Feb, 2013 [facility] [address] [id number] [address] [place] [address], [place] [address] Feb, 2013 [facility] [address] [id number] [address] [place] [address], [place] [address] Feb, 2013 [facility] [address] [id number] [address] [place] [address], [place] [address] Feb, 2013 [facility] [address] [id number] [address] [place] [address], [place] [address] Feb, 2013 [facility] [address] [id number] [address] [place] [address], [place] [address] Feb, 2013 [facility] [address] [id number] [address] [place] [address], [place] [address] Feb, 2013 [facility] [address] [id number] [address] [place] [address], [place] [address] Feb, 2013 [facility] [address] [id number] [address] [place] [address], [place] [address] Feb, 2013 [facility] [address] [id number] [address] [place] [address], [place] [address] Feb, 2013 [facility] [address] [id number] [address] [place] [address], [place] [address] Feb, 2013 [facility] [address] [id number] [address] [place] [address], [place] [address] Feb, 2013 [facility] [address] [id number] [address] [place] [address], [place] [address] Feb, 2013 [facility] [address] [id number] [address] [place] [address], [place] [address] Feb, 2013 [facility] [address] [id number] [facility] [place] [address] Jan, [facility] [address] [id number] [facility] [place] [address] Jan, [facility] [address] [id number] [facility] [place] [address] Jan, [facility] [address] [id number] [facility] [place] [address] Jan, [facility] [address] [id number] [facility] [place] [address] Jan, [facility] [address] [id number] [address] [place] [address], [place] [address] Jan, [facility] [address] [id number] [address] [place] [address], [place] [address] Jan, [facility] [address] [id number] [address] [place] [address], [place] [address] Jan, [facility] [address] [id number] [address] [place] [address], [place] [address] Jan, [facility] [address] [id number] [address] [place] [address], [place] [address] Jan, [facility] [address] [id number] [address] [place] [address], [place] [address] Jan, [facility] [address] [id number] [address] [place] [address], [place] [address] Jan, [facility] [address] [id number] [address] [place] [address], [place] [address] Jan, [facility] [address] [id number] [address] [place] [address], [place] [address] December, [facility] [address] [id number] [address] [place] [address], [place] [address] December, [facility] [address] [id number] [address] [place] [address], [place] [address] December, [facility] [address] [id number] [facility] [place] [address] December, [facility] [address] [id number] [address] [place] [address], [place] [address] December, [facility] [address] [id number] [address] [place] [address], [place] [address] December, [facility] [address] [id number] [address] [place] [address], [place] [address] December, [facility] [address] [id number] [address] [place] [address], [place] [address] December, [facility] [address] [id number] [address] [place] [address], [place] [address] December, [facility] [address] [id number] [address] [place] [address], [place] [address] December, [facility] [address] [id number] [address] [place] [address], [place] [address] December, [facility] [address] [id number] [address] [place] [address], [place] [address] December, [facility] [address] [id number] [address] [place] [address], [place] [address] Nov, [facility] [address] [id number] [address] [place] [address], [place] [address] Nov, [facility] [address] [id number] [address] [place] [address], [place] [address] Oct, [facility] [address] [id number] [address] [place] [address], [place] [address] Oct, [facility] [address] [id number] [address] [place] [address], [place] [address] Oct, [facility] [address] [id number] [address] [place] [address], [place] [address] Oct, [facility] [address] [id number] [address] [place] [address], [place] [address] 19 Oct, 2013 [facility] [address] [id number] [facility] [place] [address] 19 Oct, 2013 [facility] [address] [id number] [facility] [place] [address] 19 Oct, 2013 [facility] [address] [id number] [facility] [place] [address] 19 Oct, 2013 [facility] [address] [id number] [facility] [place] [address] 18 Oct, 2013 [facility] [address] [id number] [address] [place] [address], [place] [address] 08 Oct, 2013 [facility] [address] [id number] [address] [place] [address], [place] [address] 07 Oct, 2013 [facility] [address] [id number] [address] [place] [address], [place] [address] 06 Oct, 2013 [facility] [address] [id number] [address] [place] [address], [place] [address] 06 Oct, 2013 [facility] [address] [id number] [address] [place] [address], [place] [address] 05 Oct, 2013 [facility] [address] [id number] [address] [place] [address], [place] [address] 05 Oct, 2013 [facility] [address] [id number] [address] [place] [address], [place] [address] 05 Oct, 2013 [facility] [address] [id number] [address] [place] [address], [place] [address] 05 Oct, 2013 [facility] [address] [id number] [address] [place] [address], [place] [address] Sep, [facility] [address] [id number] [address] [place] [address], [place] [address] Sep, [facility] [address] [id number] [address] [place] [address], [place] [address] Sep, [facility] [address] [id number] [address] [place] [address], [place] [address] Jun, [facility] [address] [id number] [address] [place] [address], [place] [address] Jun, [facility] [address] [id number] [address] [place] [address], [place] [address] Jun, [facility] [address] [id number] [address] [place] [address], [place] [address] Jun, [facility] [address] [id number] [address] [place] [address], [place] [address] Jun, [facility] [address] [id number] [address] [place] [address], [place] [address] Jun, [facility] [address] [id number] [address] [place] [address], [place] [address] May, [facility] [address] [id number] [address] [place] [address], [place] [address] May, [facility] [address] [id number] [address] [place] [address], [place] [address] May, [facility] [address] [id number] [address] [place] [phone] May, [facility] [address] [id number] [address] [place] [phone] May, [facility] [address] [id number] [address] [place] [phone] May, [facility] [address] [id number] [address] [place] [address], [place] [address] Apr, [facility] [address] [id number] [address] [place] [address], [place] [address] Apr, [facility] [address] [id number] [address] [place] [address], [place] [address] Apr, [facility] [address] [id number] [address] [place] [phone] 20 Apr, 2012 [facility] [address] [id number] [address] [place] [address], [place] [address] 19 Apr, 2012 [facility] [address] [id number] [address] [place] [address], [place] [address] 17 Apr, 2012 [facility] [address] [id number] [address] [place] [address], [place] [address] 13 Apr, 2012 [facility] [address] [id number] [address] [place] [address], [place] [address] 11 Apr, 2012 [facility] [address] [id number] [address] [place] [address], [place] [address] 09 Apr, 2013 [facility] [address] [id number] [address] [place] [address], [place] [address] 05 Apr, 2013 [facility] [address] [id number] [address] [place] [address], [place] [address] Mar, [facility] [address] [id number] [address] [place] [address], [place] [address] Nov, [facility] [address] [id number] [address] [place] [address], [place] [address] Oct, [facility] [address] [id number] [address] [place] [address], [place] [address] Oct, [facility] [address] [id number] [address] [place] [address], [place] [address] Sep, [facility] [address] [id number] [address] [place] [address], [place] [address] May, [facility] [address] [id number] [address] [place] [address], [place] [address] May, [facility] [address] [id number] [address] [place] [address], [place] [address] May, [facility] [address] [id number] [address] [place] [address], [place] [address] May, [facility] [address] [id number] [address] [place] [phone] [address], [address] [facility] [address] [id number] [address] [place] [id number] Apr, [facility]. [facility] [address] [id number] [address] [place] [id number] Mar, [facility] [address] [id number] [address] [place] [id number] Feb, [facility] [address] [id number] [address] [place] [id number] Jul, [facility] [address] [id number] [address] [place] [id number] Jul, [facility] [address] [id number] [address] [place] [id number] Jul, [facility] [address] [id number] [address] [place] [id number] December, [facility] [address] [id number] [address] [place] [id number] December, [facility] [address] [id number] [address] [place] [id number] Oct, IMMUNIZATIONS No Known Immunizations SOCIAL HISTORY Never Assessed REASON FOR VISIT PLAN OF CARE VITAL SIGNS Height 68 in 2014-03-25 Weight 216.56 lbs 2014-03-25 Temperature 98.3 degrees Fahrenheit 2014-03-25 Heart Rate 88 bpm 2014-03-25 Respiratory Rate 20 2014-03-25 Blood pressure systolic 128 mmHg 2014-03-25 Blood pressure diastolic 82 mmHg 2014-03-25 MEDICATIONS Unknown Medications RESULTS No Results PROCEDURES Procedure Date Ordered Result Body Site COMPLETE CBC W/AUTO DIFF WBC Mar 25, 2014 URINE CULTURE/COLONY COUNT Mar 25, 2014 URINE-NO MICRO Mar 25, 2014 INSTRUCTIONS MEDICATIONS ADMINISTERED No Known Medications MEDICAL (GENERAL) HISTORY Type Description Date Medical History anemia Medical History asthma Surgical History section x2 Surgical History hernia repair Hospitalization History surgeries Hospitalization History possible gallbladder problems Hospitalization History ER visit for UTI 09/12/15 Hospitalization History dizziness, blackout 12/28/2017
--- OUTSIDE RECORDS SUMMARY | 2019-10-07 05:28 | XMS REPORT ---
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 Name Role Phone CHRISTOPHER FREEMAN Unavailable PROBLEMS Type Condition ICD9-CM Code [id number] Code Onset Dates Condition S tatus SNOMED Code Problem Generalized anxiety disorder F41.1 A ctive 42651363 Problem Iron deficiency anemia secondary to inadequate d ietary iron intake D50.8 Active 746122082 Problem Elevated erythrocyte sedimentation rate R70.0 Active 115758899 Problem Primary insomnia F51.01 Active 397 2004 ALLERGIES No Information ENCOUNTERS Encounter Location Date Diagnosis [address] [address] 25 Sep, 2018 Fever, unspecified fever cau se R50.9 ; Sore throat J02.9 ; Cough R05 ; Influenza A J10.1 and BMI 40.0-44.9, adult Z68.41 [facility] [place] [address] [address] 15 Sep, 2018 Sore throat J02.9 ; Viral up per respiratory tract infection J06.9 and BMI 40.0-44.9, adult Z68.[address] [address] 04 Jul, 2018 Bacterial conjunctivitis of right eye H10.9 and BMI 40.0-44.9, adult Z68.[address] [address] 14 Jun, 2018 Viral URI J06.9 [facility] [place] [address] [address] 07 Jun, 2018 Viral upper respiratory infe ction J06.9 ; Acute gastroenteritis K52.9 and BMI 40.0-44.9, adult Z68.41 [facility] [address] [address] May, Acute conjunctivitis of righ t eye, unspecified acute conjunctivitis type H10.31 ; Unspecified mood [affective] disorder F39 ; Generalized anxiety disorder F41.1 and BMI 40.0-44.9, adult Z68.41 [place] [address] [address] May, [place] [address] [address] Apr, Other specified abnormal fin dings of blood chemistry R79.89 [facility] IN [facility] [address] [address] Apr, Sore throat J02.9 ; Diarrhea , unspecified R19.7 and Vomiting, unspecified R11.10 [place] [address] [address] Apr, Chronic fatigue R53.82 ; Rey sea R11.0 and Lyme disease A69.20 [place] [address] [address] Apr, [place] [address] [address] Mar, Generalized anxiety disorder F41.1 ; Unspecified mood [affective] disorder F39 ; BMI 40.0-44.9, adult Z68.41 and Myalgia M79.1 [place] [address] [address] Feb, Elevated erythrocyte sedimen tation rate R70.0 [place] [address] [address] Feb, Elevated erythrocyte sedimen tation rate R70.0 [place] [address] [place] [id number] [place] [address] Feb, Unprotected sexual intercour se Z72.51 ; Pain in left knee M25.562 and Pain in joints of right hand M25.541 [facility] [address] [place] [id number] [place] [address] Feb, Pain in left knee M25.562 an d Pain in joints of right hand M25.541 [place] [address] [address] Feb, Unspecified mood [affective] disorder F39 ; Generalized anxiety disorder F41.1 ; Pain in joints of right hand M25.541 ; Pain in joints of left hand M25.542 ; Pain in right knee M25.561 ; Pain in left knee M25.562 and Morbid (severe) obesity due to excess calories E66.01 [facility] [address] [place] [id number] [place] [address] Jan, Sore throat J02.9 ; Strep th roat J02.0 ; BMI 40.0-44.9, adult Z68.41 ; Dysuria R30.0 and Acute cystitis with hematuria N30.01 [place] [address] [place] [id number] [place] [address] Jan, [place] [address] [place] [id number] [place] [address] December, Abnormal MRI of head R93.0 [place] [address] [address] December, Subcutaneous nodules R22.9 ; Syncope, unspecified syncope type R55 ; Abnormal MRI of head R93.0 and Iron deficiency anemia secondary to inadequate dietary iron intake D50.8 [place] [address] [place] [id number] [place] [address] December, [place] [address] [address] December, Iron deficiency anemia secon chuck to inadequate dietary iron intake D50.8 and BMI 40.0-44.9, adult Z68.41 [facility] IN [facility] [address] [address] Nov, Gastroenteritis K52.9 [facility] [address] [address] Nov, [place] [address] [address] Nov, Bilateral hand swelling M79. 89 ; Amenorrhea N91.2 ; Desire for Z31.9 ; Amenorrhea, unspecified N91.2 ; Bilateral swelling of feet M79.89 ; Rash R21 and Iron deficiency anemia, unspecified iron deficiency anemia type D50.9 [place] [address] [address] Nov, Bilateral hand swelling M79. 89 ; Bilateral swelling of feet M79.89 and Rash R21 [place] [address] [address] Sep, Desire for Z31.9 a nd Amenorrhea N91.2 [facility] IN [facility] [address] [address] Aug, Scabies B86 [place] [address] [address] Aug, Amenorrhea, unspecified N91. 2 [place] [address] [address] Aug, Amenorrhea, unspecified N91. 2 [place] [address] [address] Aug, Amenorrhea N91.2 and Iron de ficiency anemia, unspecified iron deficiency anemia type D50.9 [place] [address] [address] Aug, Iron deficiency anemia [place] to inadequate dietary iron intake D50.8 ; Amenorrhea N91.2 ; Generalized anxiety disorder F41.1 ; Unspecified mood [affective] disorder F39 and Nausea R11.0 [facility] IN [facility] [address] [place] [id number] [place] [address] Jul, Non-intractable vomiting wit h nausea, unspecified vomiting type R11.2 and Pleurisy R09.1 [facility] [address] [place] [address] Jul, [facility] [address] [place] [id number] [place] [address] Jun, Unspecified mood [affective] disorder F39 [place] [address] [address] Jun, Unspecified mood [affective] disorder F39 and Generalized anxiety disorder F41.1 [facility] [address] [place] [id number] [place] [address] May, Bilious vomiting with nausea R11.14 [facility] [address] [address] May, Unspecified mood [affective] disorder F39 ; Generalized anxiety disorder F41.1 and Iron deficiency anemia, unspecified iron deficiency anemia type D50.9 [facility] [address] [place] [address] Apr, Unspecified mood [affective] disorder F39 [facility] [address] [place] [address] Apr, Iron deficiency anemia, unsp ecified iron deficiency anemia type D50.9 [place] [address] [place] [id number] [place] [address] Apr, Iron deficiency anemia, unsp ecified iron deficiency anemia type D50.9 [facility] [address] [place] [address] Apr, Unspecified mood [affective] disorder F39 [facility] [address] [facility] [id number] [address] [place] [address] Apr, Abnormal CBC R79.89 [facility] [address] [facility] [id number] [address] [place] [address] 07 Apr, 2017 Abnormal CBC R79.89 [facility] [address] [facility] [id number] [address] [place] [address] 05 Apr, 2017 Encounter to establish care with new doctor Z76.89 ; Unspecified mood [affective] disorder F39 and Primary insomnia F51.01 [facility] [address] [facility] [id number] [address] [place] [address] Mar, Unspecified mood [affective] disorder F39 and Generalized anxiety disorder F41.1 [facility] [address] [facility] [id number] [address] [place] [address] Mar, Sore throat J02.9 and Strep pharyngitis J02.0 [facility] [address] [place] [id number] Feb, Dental examination Z01.20 [facility] [address] [facility] [id number] [place] [id number] Jan, Encounter for dental examina tion Z01.20 [facility] [address] [facility] [id number] [address] [place] [address] Nov, Fever, unspecified R50.9 and Acute nasopharyngitis J00 [facility] [address] [facility] [id number] [address] [place] [address] 18 Sep, 2015 Abdominal pain, acute, right upper quadrant 789.01 [facility] [address] [facility] [id number] [address] [place] [address] Sep, [facility] [address] [facility] [id number] [address] [place] [address] Aug, Irritable bowel syndrome wit h diarrhea K58.0 [facility] [address] [place] [id number] [place] [address] Aug, Urinary tract infection, sit e not specified N39.0 and Back pain M54.9 [facility] [address] [place] [id number] [place] [address] Mar, Abdominal pain, acute, right upper quadrant 789.01 [facility] [address] [address] Mar, [facility] [address] [address] Mar, Nausea 787.02 and Abdominal pain, acute, right upper quadrant 789.01 [facility] [address] [place] [id number] [place] [address] Mar, Nausea 787.02 and Abdominal pain 789.00 [facility] [address] [address] Mar, Nausea 787.02 [facility] [address] [place] [id number] [place] [address] Jan, Amenorrhea 626.0 [facility] [address] [address] Jan, Amenorrhea 626.0 and Obesity 278.00 [facility] [address] [place] [id number] [place] [address] December, Amenorrhea 626.0 and Cough 7 86.2 [facility] [address] [place] [id number] [place] [address] Nov, [facility] [address] [address] Nov, [facility] [address] [place] [id number] [address] [place] [address] May, [facility] [address] [address] May, [facility] [address] [id number] [facility] [address] Mar, [facility] [address] [id number] [address] [place] [address], [place] [address] Mar, [facility] [address] [id number] [address] [place] [address], [place] [address] Mar, [facility] [address] [id number] [address] [place] [address], [place] [address] Mar, [facility] [address] [id number] [address] [place] [address], [place] [address] Mar, [facility] [address] [id number] [address] [place] [address], [place] [address] Mar, [facility] [address] [id number] [address] [place] [address], [place] [address] Mar, [facility] [address] [id number] [address] [place] [address], [place] [address] Mar, [facility] [address] [id number] [address] [place] [address], [place] [address] Mar, [facility] [address] [id number] [address] [place] [address], [place] [address] Mar, [facility] [address] [id number] [address] [place] [address], [place] [address] Mar, [facility] [address] [id number] [address] [place] [address], [place] [address] Mar, [facility] [address] [id number] [address] [place] [address], [place] [address] Mar, [facility] [address] [id number] [address] [place] [address], [place] [address] Mar, [facility] [address] [id number] [address] [place] [address], [place] [address] Mar, [facility] [address] [id number] [address] [place] [address], [place] [address] Feb, 2013 [facility] [address] [id number] [address] [place] [address], [place] [address] Feb, 2013 [facility] [address] [id number] [address] [place] [address], [place] [address] Feb, 2013 [facility] [address] [id number] [address] [place] [address], [place] [address] Feb, 2013 [facility] [address] [id number] [address] [place] [address], [place] [address] Feb, 2013 [facility] [address] [id number] [address] [place] [address], [place] [address] Feb, 2013 [facility] [address] [id number] [address] [place] [address], [place] [address] Feb, 2013 [facility] [address] [id number] [address] [place] [address], [place] [address] Feb, 2013 [facility] [address] [id number] [address] [place] [address], [place] [address] Feb, 2013 [facility] [address] [id number] [address] [place] [address], [place] [address] Feb, 2013 [facility] [address] [id number] [address] [place] [address], [place] [address] Feb, [facility] [address] [id number] [address] [place] [address], [place] [address] Feb, 2013 [facility] [address] [id number] [address] [place] [address], [place] [address] Feb, 2013 [facility] [address] [id number] [address] [place] [address], [place] [address] Feb, [facility] [address] [id number] [address] [place] [address], [place] [address] Feb, 2013 [facility] [address] [id number] [address] [place] [address], [place] [address] Jan, [facility] [address] [id number] [facility] [address] Jan, [facility] [address] [id number] [facility] [address] Jan, [facility] [address] [id number] [facility] [address] Jan, [facility] [address] [id number] [facility] [address] Jan, [facility] [address] [id number] [address] [place] [address], [place] [address] Jan, [facility] [address] [id number] [address] [place] [address], [place] [address] Jan, [facility] [address] [id number] [address] [place] [address], [place] [address] Jan, [facility] [address] [id number] [address] [place] [address], [place] [address] Jan, [facility] [address] [id number] [address] [place] [address], [place] [address] Jan, [facility] [address] [id number] [address] [place] [address], [place] [address] Jan, [facility] [address] [id number] [address] [place] [address], [place] [address] Jan, [facility] [address] [id number] [address] [place] [address], [place] [address] Jan, [facility] [address] [id number] [address] [place] [address], [place] [address] December, [facility] [address] [id number] [address] [place] [address], [place] [address] December, [facility] [address] [id number] [address] [place] [address], [place] [address] December, [facility] [address] [id number] [address] [place] [address], [place] [address] December, [facility] [address] [id number] [facility] [address] December, [facility] [address] [id number] [address] [place] [address], [place] [address] December, [facility] [address] [id number] [address] [place] [address], [place] [address] December, [facility] [address] [id number] [address] [place] [address], [place] [address] December, [facility] [address] [id number] [address] [place] [address], [place] [address] December, [facility] [address] [id number] [address] [place] [address], [place] [address] December, [facility] [address] [id number] [address] [place] [address], [place] [address] December, [facility] [address] [id number] [address] [place] [address], [place] [address] December, [facility] [address] [id number] [address] [place] [address], [place] [address] Nov, [facility] [address] [id number] [address] [place] [address], [place] [address] Nov, [facility] [address] [id number] [address] [place] [address], [place] [address] Oct, [facility] [address] [id number] [address] [place] [address], [place] [address] Oct, [facility] [address] [id number] [address] [place] [address], [place] [address] Oct, [facility] [address] [id number] [address] [place] [address], [place] [address] Oct, [facility] [address] [id number] [address] [place] [address], [place] [address] Oct, [facility] [address] [id number] [facility] [address] 19 Oct, 2013 [facility] [address] [id number] [address] [place] [address], [place] [address] 19 Oct, 2013 [facility] [address] [id number] [facility] [address] 19 Oct, 2013 [facility] [address] [id number] [address] [place] [address], [place] [address] 18 Oct, 2013 [facility] [address] [id number] [address] [place] [address], [place] [address] 08 Oct, 2013 [facility] [address] [id number] [address] [place] [address], [place] [address] 07 Oct, 2013 [facility] [address] [id number] [address] [place] [address], [place] [address] 06 Oct, 2013 [facility] [address] [id number] [address] [place] [address], [place] [address] 06 Oct, 2013 [facility] [address] [id number] [address] [place] [address], [place] [address] 05 Oct, 2013 [facility] [address] [id number] [address] [place] [address], [place] [address] 05 Oct, 2013 [facility] [address] [id number] [address] [place] [address], [place] [address] 05 Oct, 2013 [facility] [address] [id number] [address] [place] [address], [place] [address] 05 Oct, 2013 [facility] [address] [id number] [address] [place] [address], [place] [address] Sep, [facility] [address] [id number] [address] [place] [address], [place] [address] Sep, [facility] [address] [id number] [address] [place] [address], [place] [address] Sep, [facility] [address] [id number] [address] [place] [address], [place] [address] Jun, [facility] [address] [id number] [address] [place] [address], [place] [address] Jun, [facility] [address] [id number] [address] [place] [address], [place] [address] Jun, [facility] [address] [id number] [address] [place] [address], [place] [address] Jun, [facility] [address] [id number] [address] [place] [address], [place] [address] Jun, [facility] [address] [id number] [address] [place] [address], [place] [address] Jun, [facility] [address] [id number] [address] [place] [address], [place] [address] May, [facility] [address] [id number] [address] [place] [address], [place] [address] May, [facility] [address] [id number] [address] [place] [address], [place] [address] May, [facility] [address] [id number] [address] [place] [address], [place] [address] May, [facility] [address] [id number] [address] [place] [address], [place] [address] May, [facility] [address] [id number] [address] [place] [address], [place] [address] May, [facility] [address] [id number] [address] [place] [address], [place] [address] Apr, [facility] [address] [id number] [address] [place] [address], [place] [address] 24 Apr, 2013 [facility] [address] [id number] [address] [place] [address], [place] [address] 23 Apr, 2013 [facility] [address] [id number] [address] [place] [address], [place] [address] 20 Apr, 2013 [facility] [address] [id number] [address] [place] [address] [place] [address] 19 Apr, 2012 [facility] [address] [id number] [address] [place] [address], [place] [address] 17 Sep, 2012 [facility] [address] [id number] [address] [place] [address], [place] [address] 13 Apr, 2013 [facility] [address] [id number] [address] [place] [address], [place] [address] 11 Apr, 2012 [facility] [address] [id number] [address] [place] [address], [place] [address] 09 Apr, 2013 [facility] [address] [id number] [address] [place] [address], [place] [address] 05 Apr, 2013 [facility] [address] [id number] [address] [place] [address], [place] [address] Mar, [facility] [address] [id number] [address] [place] [address], [place] [address] Nov, [facility] [address] [id number] [address] [place] [address], [place] [address] Oct, [facility] [address] [id number] [address] [place] [address], [place] [address] Oct, [facility] [address] [id number] [address] [place] [address], [place] [address] Sep, [facility] [address] [id number] [address] [place] [address], [place] [address] May, [facility] [address] [id number] [address] [place] [address], [place] [address] May, [facility] [address] [id number] [address] [place] [address], [place] [address] May, [facility] [address] [id number] [address] [place] [address], [place] [address] May, [facility] [address] [id number] [address] [place] [address], [place] [address] 24 Apr, 2012 [facility] [address] [id number] [address] [place] [address] Apr, [facility] [address] [id number] [address] [place] [id number] Mar, [facility] [address] [id number] [address] [place] [address] Feb, [facility] [address] [id number] [address] [place] [address] Jul, [facility] [address] [id number] [address] [place] [id number] Jul, [facility] [address] [id number] [address] [place] [address] Jul, [facility] [address] [id number] [address] [place] [id number] December, [facility] [address] [id number] [address] [place] [id number] December, [facility] [address] [id number] [address] [place] [id number] Oct, IMMUNIZATIONS No Known Immunizations SOCIAL HISTORY Never Assessed REASON FOR VISIT PLAN OF CARE VITAL SIGNS Height 68 in 2012-11-09 Weight 221 lbs 2012-11-09 Temperature 98.2 degrees Fahrenheit 2012-11-09 Heart Rate 80 bpm 2012-11-09 Respiratory Rate 18 2012-11-09 Blood pressure systolic 110 mmHg 2012-11-09 Blood pressure diastolic 78 mmHg 2012-11-09 MEDICATIONS No Known Medications RESULTS No Results PROCEDURES Procedure Date Ordered Result Body Site TRICHOMONAS VAGIN, DIR PROBE November 09, 2012 CHYLMD TRACH, DNA, AMP PROBE November 09, 2012 URINE TEST November 09, 2012 CULTURE, BACTERIA, OTHER November 09, 2012 INSTRUCTIONS MEDICATIONS ADMINISTERED No Known Medications MEDICAL (GENERAL) HISTORY Type Description Date Medical History anemia Medical History asthma Surgical History section x2 Surgical History hernia repair Hospitalization History surgeries Hospitalization History possible gallbladder problems Hospitalization History ER visit for UTI 09/12/15 Hospitalization History dizziness, blackout 12/28/2017
--- OUTSIDE RECORDS SUMMARY | 2019-10-07 05:29 | XMS REPORT ---
Author Author Tong Jailene Doctor Organization [facility] Address Unknown Phone Unavailable Care Team Providers Care National Secretary Name Role Phone Migration, Doctor Unavailable Unavailable PROBLEMS Type Condition ICD9-CM Code [id number] Code Onset Dates Condition S tatus SNOMED Code Problem Generalized anxiety disorder F41.1 A ctive [id number] Problem Iron deficiency anemia secondary to inadequate d ietary iron intake D50.8 Active 394476062 Problem Elevated erythrocyte sedimentation rate R70.0 Active 231659249 Problem Primary insomnia F51.01 Active 397 2004 ALLERGIES No Information ENCOUNTERS Encounter Location Date Diagnosis [place] [address] [address] 25 Sep, 2018 Fever, unspecified fever cau se R50.9 ; Sore throat J02.9 ; Cough R05 ; Influenza A J10.1 and BMI 40.0-44.9, adult Z68.41 [facility] [address] [address] 15 Sep, 2018 Sore throat J02.9 ; Viral up per respiratory tract infection J06.9 and BMI 40.0-44.9, adult Z68.41 [place] [address] [address] 04 Jul, 2018 Bacterial conjunctivitis of right eye H10.9 and BMI 40.0-44.9, adult Z68.41 [facility] [address] [address] 14 Jun, 2018 Viral URI J06.9 [facility] [address] [address] 07 Jun, 2018 Viral upper respiratory infe ction J06.9 ; Acute gastroenteritis K52.9 and BMI 40.0-44.9, adult Z68.41 [place] [place] [id number] [place] [address] May, Acute conjunctivitis of righ t eye, unspecified acute conjunctivitis type H10.31 ; Unspecified mood [affective] disorder F39 ; Generalized anxiety disorder F41.1 and BMI 40.0-44.9, adult Z68.41 [place] [address] [address] May, [place] [address] [address] Apr, Other specified abnormal fin dings of blood chemistry R79.89 [facility] [address] [address] Apr, Sore throat J02.9 ; Diarrhea , unspecified R19.7 and Vomiting, unspecified R11.[address] [address] Apr, Chronic fatigue R53.82 ; Rey sea R11.0 and Lyme disease A69.20 [place] [address] [address] Apr, [place] [address] [address] Mar, Generalized anxiety disorder F41.1 ; Unspecified mood [affective] disorder F39 ; BMI 40.0-44.9, adult Z68.41 and Myalgia M79.1 [place] [address] [place] [id number] [place] [address] Feb, Elevated erythrocyte sedimen tation rate R70.[address] [address] Feb, Elevated erythrocyte sedimen tation rate R70.0 [place] [address] [address] Feb, Unprotected sexual intercour se Z72.51 ; Pain in left knee M25.562 and Pain in joints of right hand M25.541 [facility] [address] [place] [id number] [address] [place] [address] Feb, Pain in left knee M25.562 an d Pain in joints of right hand M25.541 [facility] [address] [place] [id number] [place] [address] Feb, Unspecified mood [affective] disorder F39 ; Generalized anxiety disorder F41.1 ; Pain in joints of right hand M25.541 ; Pain in joints of left hand M25.542 ; Pain in right knee M25.561 ; Pain in left knee M25.562 and Morbid (severe) obesity due to excess calories E66.01 [facility] [address] [facility] [id number] [address] [place] [address] Jan, Sore throat J02.9 ; Strep th roat J02.0 ; BMI 40.0-44.9, adult Z68.41 ; Dysuria R30.0 and Acute cystitis with hematuria N30.01 [place] [address] [place] [address] Jan, [place] [address] [address] December, Abnormal MRI of head R93.0 [place] [address] [address] December, Subcutaneous nodules R22.9 ; Syncope, unspecified syncope type R55 ; Abnormal MRI of head R93.0 and Iron deficiency anemia secondary to inadequate dietary iron intake D50.8 [place] [address] [place] [id number] [address] [place] [address] December, [place] [address] [place] [id number] [place] [address] December, Iron deficiency anemia secon chuck to inadequate dietary iron intake D50.8 and BMI 40.0-44.9, adult Z68.41 [facility] [address] [place] [id number] [place] [address] Nov, Gastroenteritis K52.9 [place] [address] [address] Nov, [place] [address] [address] Nov, Bilateral hand swelling M79. 89 ; Amenorrhea N91.2 ; Desire for Z31.9 ; Amenorrhea, unspecified N91.2 ; Bilateral swelling of feet M79.89 ; Rash R21 and Iron deficiency anemia, unspecified iron deficiency anemia type D50.9 [place] [address] [address] Nov, Bilateral hand swelling M79. 89 ; Bilateral swelling of feet M79.89 and Rash R21 [place] [address] [address] Sep, Desire for Z31.9 a nd Amenorrhea N91.2 [facility] [address] [address] Aug, Scabies B86 [place] [address] [place] [id number] [place] [address] Aug, Amenorrhea, unspecified N91. 2 [place] [address] [address] Aug, Amenorrhea, unspecified N91. 2 [place] [address] [address] Aug, Amenorrhea N91.2 and Iron de ficiency anemia, unspecified iron deficiency anemia type D50.9 [place] [address] [place] [id number] [address] [place] [address] Aug, Iron deficiency anemia secon chuck to inadequate dietary iron intake D50.8 ; Amenorrhea N91.2 ; Generalized anxiety disorder F41.1 ; Unspecified mood [affective] disorder F39 and Nausea R11.0 [facility] [address] [id number] [address] [place] [address] Jul, Non-intractable vomiting wit h nausea, unspecified vomiting type R11.2 and Pleurisy R09.1 [facility] [address] [facility] [id number] [address] [place] [address] Jul, [facility] [address] [facility] [id number] [address] [place] [address] Jun, Unspecified mood [affective] disorder F39 [place] [address] [facility] [id number] [address] [place] [address] Jun, Unspecified mood [affective] disorder F39 and Generalized anxiety disorder F41.1 [facility] [address] [facility] [id number] [address] [place] [address] May, Bilious vomiting with nausea R11.14 [facility] [address] [facility] [id number] [address] [place] [address] May, Unspecified mood [affective] disorder F39 ; Generalized anxiety disorder F41.1 and Iron deficiency anemia, unspecified iron deficiency anemia type D50.9 [facility] [address] [facility] [id number] [address] [place] [address] Apr, Unspecified mood [affective] disorder F39 [facility] [address] [facility] [id number] [address] [place] [address] Apr, Iron deficiency anemia, unsp ecified iron deficiency anemia type D50.9 [facility] [address] [id number] [address] [place] [address] Apr, Iron deficiency anemia, unsp ecified iron deficiency anemia type D50.9 [facility] [address] [facility] [id number] [address] [place] [address] Apr, Unspecified mood [affective] disorder F39 [facility] [address] [facility] [id number] [address] [place] [address] 07 Apr, 2017 Abnormal CBC R79.89 [facility] [address] [facility] [id number] [address] [place] [address] 07 Apr, 2017 Abnormal CBC R79.89 [facility] [address] [facility] [id number] [address] [place] [address] 05 Apr, 2017 Encounter to establish care with new doctor Z76.89 ; Unspecified mood [affective] disorder F39 and Primary insomnia F51.01 [facility] [address] [facility] [id number] [address] [place] [address] Mar, Unspecified mood [affective] disorder F39 and Generalized anxiety disorder F41.1 [facility] [address] [place] [id number] [place] [address] Mar, Sore throat J02.9 and Strep pharyngitis J02.0 [facility] [address] [place] [id number] Feb, Dental examination Z01.20 [facility] [address] [id number] Jan, Encounter for dental examina tion Z01.20 [facility] [address] [place] [id number] [address] [place] [address] Nov, Fever, unspecified R50.9 and Acute nasopharyngitis J00 [facility] [address] [place] [id number] [address] [place] [address] 18 Sep, 2015 Abdominal pain, acute, right upper quadrant 789.01 [facility] [address] [place] [id number] [address] [place] [address] Sep, [facility] [address] [place] [id number] [place] [address] Aug, Irritable bowel syndrome wit h diarrhea K58.0 [facility] [address] [facility] [id number] [address] [place] [address] 18 [place], 2016 Urinary tract infection, sit e not specified N39.0 and Back pain M54.9 [facility] [address] [facility] [id number] [address] [place] [address] Mar, Abdominal pain, acute, right upper quadrant 789.01 [facility] [address] [facility] [id number] [address] [place] [address] Mar, [facility] [address] [place] [id number] [address] [place] [address] Mar, Nausea 787.02 and Abdominal pain, acute, right upper quadrant 789.01 [facility] [address] [facility] [id number] [address] [place] [address] Mar, Nausea 787.02 and Abdominal pain 789.00 [facility] [address] [place] [id number] [address] [place] [address] Mar, Nausea 787.02 [facility] [address] [place] [id number] [place] [address] Jan, Amenorrhea 626.0 [facility] [address] [place] [id number] [place] [address] Jan, Amenorrhea 626.0 and Obesity 278.00 [facility] [address] [place] [id number] [address] [place] [address] December, Amenorrhea 626.0 and Cough 7 86.2 [facility] [address] [place] [id number] [place] [address] Nov, [facility] [address] [place] [id number] [place] [address] Nov, [facility] [address] [place] [id number] [place] [address] May, [facility] [address] [place] [id number] [address] [place] [address] May, [facility] [address] [place] [id number] [place] [address] Mar, [facility] [address] [id number] [facility] [place] [address] Mar, [facility] [address] [id number] [facility] [place] [address] Mar, [facility] [address] [id number] [address] [place] [address], [place] [address] Mar, [facility] [address] [id number] [address] [place] [address], [place] [address] Mar, [facility] [address] [id number] [address] [place] [address], [place] [address] Mar, [facility] [address] [id number] [address] [place] [address], [place] [address] Mar, [facility] [address] [id number] [address] [place] [address], [place] [address] Mar, [facility] [address] [id number] [address] [place] [address], [place] [address] Mar, [facility] [address] [id number] [address] [place] [address], [place] [address] Mar, [facility] [address] [id number] [address] [place] [address], [place] [address] Mar, [facility] [address] [id number] [address] [place] [address], [place] [address] Mar, [facility] [address] [id number] [address] [place] [address], [place] [address] Mar, [facility] [address] [id number] [address] [place] [address], [place] [address] Mar, [facility] [address] [id number] [address] [place] [address], [place] [address] Mar, [facility] [address] [id number] [address] [place] [address], [place] [address] Feb, [facility] [address] [id number] [facility] [place] [address] Feb, 2013 [facility] [address] [id number] [address] [place] [address], [place] [address] Feb, 2013 [facility] [address] [id number] [address] [place] [address], [place] [address] Feb, 2013 [facility] [address] [id number] [address] [place] [address], [place] [address] Feb, 2013 [facility] [address] [id number] [address] [place] [address], [place] [address] Feb, 2013 [facility] [address] [id number] [address] [place] [address], [place] [address] Feb, [facility] [address] [id number] [address] [place] [address], [place] [address] Feb, [facility] [address] [id number] [address] [place] [address], [place] [address] Feb, 2013 [facility] [address] [id number] [address] [place] [address], [place] [address] Feb, 2013 [facility] [address] [id number] [address] [place] [address], [place] [address] Feb, 2013 [facility] [address] [id number] [address] [place] [address], [place] [address] Feb, [facility] [address] [id number] [address] [place] [address], [place] [address] Feb, 2013 [facility] [address] [id number] [address] [place] [address], [place] [address] Feb, 2013 [facility] [address] [id number] [address] [place] [address], [place] [address] Feb, [facility] [address] [id number] [address] [place] [address], [place] [address] Jan, [facility] [address] [id number] [address] [place] [address], [place] [address] Jan, [facility] [address] [id number] [facility] [place] [address] Jan, [facility] [address] [id number] [facility] [place] [address] Jan, [facility] [address] [id number] [address] [place] [address], [place] [address] Jan, [facility] [address] [id number] [address] [place] [address], [place] [address] Jan, [facility] [address] [id number] [address] [place] [address], [place] [address] Jan, [facility] [address] [id number] [address] [place] [address], [place] [address] Jan, [facility] [address] [id number] [address] [place] [address], [place] [address] Jan, [facility] [address] [id number] [address] [place] [address], [place] [address] Jan, [facility] [address] [id number] [address] [place] [address], [place] [address] Jan, [facility] [address] [id number] [address] [place] [address], [place] [address] Jan, [facility] [address] [id number] [address] [place] [address], [place] [address] Jan, [facility] [address] [id number] [address] [place] [address], [place] [address] December, [facility] [address] [id number] [address] [place] [address], [place] [address] December, [facility] [address] [id number] [address] [place] [address], [place] [address] December, [facility] [address] [id number] [address] [place] [address], [place] [address] December, [facility] [address] [id number] [address] [place] [address], [place] [address] December, [facility] [address] [id number] [facility] [place] [address] December, [facility] [address] [id number] [address] [place] [address], [place] [address] December, [facility] [address] [id number] [address] [place] [address], [place] [address] December, [facility] [address] [id number] [address] [place] [address], [place] [address] December, [facility] [address] [id number] [address] [place] [address], [place] [address] December, [facility] [address] [id number] [address] [place] [address], [place] [address] December, [facility] [address] [id number] [address] [place] [address], [place] [address] December, [facility] [address] [id number] [address] [place] [address], [place] [address] Nov, [facility] [address] [id number] [address] [place] [address], [place] [address] Nov, [facility] [address] [id number] [address] [place] [address], [place] [address] Oct, [facility] [address] [id number] [address] [place] [address], [place] [address] Oct, [facility] [address] [id number] [address] [place] [address], [place] [address] Oct, [facility] [address] [id number] [address] [place] [address], [place] [address] Oct, [facility] [address] [id number] [address] [place] [address], [place] [address] Oct, [facility] [address] [id number] [address] [place] [address], [place] [address] Oct, [facility] [address] [id number] [facility] [place] [address] 19 Oct, 2013 [facility] [address] [id number] [address] [place] [address], [place] [address] Oct, [facility] [address] [id number] [facility] [place] [address] 18 Oct, 2013 [facility] [address] [id number] [address] [place] [address], [place] [address] 08 Oct, 2013 [facility] [address] [id number] [address] [place] [address], [place] [address] 07 Oct, 2013 [facility] [address] [id number] [address] [place] [address], [place] [address] 06 Oct, 2013 [facility] [address] [id number] [address] [place] [address], [place] [address] Oct, [facility] [address] [id number] [address] [place] [address], [place] [address] Oct, [facility] [address] [id number] [address] [place] [address], [place] [address] 05 Oct, 2013 [facility] [address] [id number] [address] [place] [address], [place] [address] Oct, [facility] [address] [id number] [address] [place] [address], [place] [address] Oct, [facility] [address] [id number] [address] [place] [address], [place] [address] Sep, [facility] [address] [id number] [address] [place] [address], [place] [address] Sep, [facility] [address] [id number] [address] [place] [address], [place] [address] Sep, [facility] [address] [id number] [address] [place] [address], [place] [address] Jun, [facility] [address] [id number] [address] [place] [address], [place] [address] Jun, [facility] [address] [id number] [address] [place] [address], [place] [address] Jun, [facility] [address] [id number] [address] [place] [address], [place] [address] Jun, [facility] [address] [id number] [address] [place] [address], [place] [address] Jun, [facility] [address] [id number] [address] [place] [address], [place] [address] Jun, [facility] [address] [id number] [address] [place] [address], [place] [address] May, [facility] [address] [id number] [address] [place] [address], [place] [address] May, [facility] [address] [id number] [address] [place] [address], [place] [address] May, [facility] [address] [id number] [address] [place] [address], [place] [address] May, [facility] [address] [id number] [address] [place] [address], [place] [address] May, [facility] [address] [id number] [address] [place] [id number] May, [facility] [address] [id number] [address] [place] [id number] 26 Apr, 2013 [facility] [address] [id number] [address] [place] [id number] 24 Apr, 2013 [facility] [address] [id number] [address] [place] [address], [place] [address] 23 Apr, 2013 [facility] [address] [id number] [address] [place] [address], [place] [address] 20 Apr, 2013 [facility] [address] [id number] [address] [place] [address], [place] [address] 19 Apr, 2013 [facility] [address] [id number] [address] [place] [address], [place] [address] 17 Sep, 2012 [facility] [address] [id number] [address] [place] [address], [place] [address] 13 Sep, 2012 [facility] [address] [id number] [address] [place] [address], [place] [address] 11 Apr, 2012 [facility] [address] [id number] [address] [place] [address], [place] [address] 09 Apr, 2012 [facility] [address] [id number] [address] [place] [address], [place] [address] 05 Apr, 2012 [facility] [address] [id number] [address] [place] [address], [place] [address] Mar, [facility] [address] [id number] [address] [place] [address], [place] [address] Nov, [facility] [address] [id number] [address] [place] [address], [place] [address] Oct, [facility] [address] [id number] [address] [place] [address], [place] [address] Oct, [facility] [address] [id number] [address] [place] [address], [place] [address] Sep, [facility] [address] [id number] [address] [place] [address], [place] [address] May, [facility] [address] [id number] [address] [place] [address], [place] [address] 27 May, 2012 [facility] [address] [id number] [address] [place] [address], [place] [address] May, [facility] [address] [id number] [address] [place] [address], [place] [address] 11 May, 2012 [facility] [address] [id number] [address] [place] [address], [place] [address] 24 Apr, 2011 [facility] [address] [id number] [address] [place] [address], [place] [address] Apr, [facility] [address] [id number] [address] [place] [phone] Mar, [facility] [address] [id number] [address] [place] [phone] Feb, [facility] [address] [id number] [address] [place] [id number] Jul, [facility] [facility] [address] [id number] [address] [place] [id number] Jul, [facility] [address] [id number] [address] [place] [id number] Jul, [facility] [address] [id number] [address] [place] [id number] December, [facility] [address] [id number] [address] [place] [id number] December, [facility] [address] [id number] [address] [place] [id number] Oct, IMMUNIZATIONS No Known Immunizations SOCIAL HISTORY Never Assessed REASON FOR VISIT EMR-[facility] [place] PLAN OF CARE VITAL SIGNS MEDICATIONS No [...]
--- OUTSIDE RECORDS SUMMARY | 2019-10-07 05:29 | XMS REPORT ---
Author Author Tong Jailene Doctor Organization [facility] Address Unknown Phone Unavailable Care Team Providers Care Winder Tender Name Role Phone Migration, Doctor Unavailable Unavailable PROBLEMS Type Condition ICD9-CM Code [id number] Code Onset Dates Condition S tatus SNOMED Code Problem Generalized anxiety disorder F41.1 A ctive 35241196 Problem Iron deficiency anemia secondary to inadequate d ietary iron intake D50.8 Active 348589213 Problem Elevated erythrocyte sedimentation rate R70.0 Active 723496994 Problem Primary insomnia F51.01 Active 397 2004 ALLERGIES No Information ENCOUNTERS Encounter Location Date Diagnosis [place] [address] [address] 25 Sep, 2018 Fever, unspecified fever cau se R50.9 ; Sore throat J02.9 ; Cough R05 ; Influenza A J10.1 and BMI 40.0-44.9, adult Z68.41 [facility] [address] [address] 15 Sep, 2018 Sore throat J02.9 ; Viral up per respiratory tract infection J06.9 and BMI 40.0-44.9, adult Z68.41 [place] [address] [address] 04 Jul, 2018 Bacterial conjunctivitis of right eye H10.9 and BMI 40.0-44.9, adult Z68.41 [facility] [address] [address] 14 Jun, 2018 Viral URI J06.9 [facility] [address] [address] 07 Jun, 2018 Viral upper respiratory infe ction J06.9 ; Acute gastroenteritis K52.9 and BMI 40.0-44.9, adult Z68.41 [place] [id number] [place] [address] May, Acute conjunctivitis of righ t eye, unspecified acute conjunctivitis type H10.31 ; Unspecified mood [affective] disorder F39 ; Generalized anxiety disorder F41.1 and BMI 40.0-44.9, adult Z68.41 [place] [address] [address] May, [place] [address] [address] Apr, Other specified abnormal fin dings of blood chemistry R79.89 [facility] [address] [address] Apr, Sore throat J02.9 ; Diarrhea , unspecified R19.7 and Vomiting, unspecified R11.[address] [address] Apr, Chronic fatigue R53.82 ; Rey sea R11.0 and Lyme disease A69.20 [place] [address] [address] Apr, [place] [address] [address] Mar, Generalized anxiety disorder F41.1 ; Unspecified mood [affective] disorder F39 ; BMI 40.0-44.9, adult Z68.41 and Myalgia M79.1 [place] [address] [place] [id number] [place] [address] Feb, Elevated erythrocyte sedimen tation rate R70.[address] [address] Feb, Elevated erythrocyte sedimen tation rate R70.0 [place] [address] [address] Feb, Unprotected sexual intercour se Z72.51 ; Pain in left knee M25.562 and Pain in joints of right hand M25.541 [facility] [address] [place] [id number] [place] [address] Feb, Pain in left knee M25.562 an d Pain in joints of right hand M25.541 [facility] [address] [place] [id number] [place] [address] Feb, Unspecified mood [affective] disorder F39 ; Generalized anxiety disorder F41.1 ; Pain in joints of right hand M25.541 ; Pain in joints of left hand M25.542 ; Pain in right knee M25.561 ; Pain in left knee M25.562 and Morbid (severe) obesity due to excess calories E66.01 [facility] [address] [facility] [id number] [address] [place] [address] Jan, Sore throat J02.9 ; Strep th roat J02.0 ; BMI 40.0-44.9, adult Z68.41 ; Dysuria R30.0 and Acute cystitis with hematuria N30.01 [place] [address] [place] [address] Jan, [place] [address] [address] December, Abnormal MRI of head R93.0 [place] [address] [address] December, Subcutaneous nodules R22.9 ; Syncope, unspecified syncope type R55 ; Abnormal MRI of head R93.0 and Iron deficiency anemia secondary to inadequate dietary iron intake D50.8 [place] [address] [place] [id number] [address] [place] [address] December, [place] [address] [place] [id number] [place] [address] December, Iron deficiency anemia secon chuck to inadequate dietary iron intake D50.8 and BMI 40.0-44.9, adult Z68.41 [facility] [address] [place] [id number] [place] [address] Nov, Gastroenteritis K52.9 [place] [address] [address] Nov, [place] [address] [address] Nov, Bilateral hand swelling M79. 89 ; Amenorrhea N91.2 ; Desire for Z31.9 ; Amenorrhea, unspecified N91.2 ; Bilateral swelling of feet M79.89 ; Rash R21 and Iron deficiency anemia, unspecified iron deficiency anemia type D50.9 [place] [address] [address] Nov, Bilateral hand swelling M79. 89 ; Bilateral swelling of feet M79.89 and Rash R21 [place] [address] [address] Sep, Desire for Z31.9 a nd Amenorrhea N91.2 [facility] [address] [address] Aug, Scabies B86 [place] [address] [place] [id number] [place] [address] Aug, Amenorrhea, unspecified N91. 2 [place] [address] [address] Aug, Amenorrhea, unspecified N91. 2 [place] [address] [address] Aug, Amenorrhea N91.2 and Iron de ficiency anemia, unspecified iron deficiency anemia type D50.9 [place] [address] [place] [id number] [place] [address] Aug, Iron deficiency anemia secon chuck to inadequate dietary iron intake D50.8 ; Amenorrhea N91.2 ; Generalized anxiety disorder F41.1 ; Unspecified mood [affective] disorder F39 and Nausea R11.0 [facility] [address] [id number] [address] [place] [address] Jul, Non-intractable vomiting wit h nausea, unspecified vomiting type R11.2 and Pleurisy R09.1 [facility] [address] [facility] [id number] [address] [place] [address] Jul, [facility] [address] [facility] [id number] [address] [place] [address] Jun, Unspecified mood [affective] disorder F39 [place] [address] [facility] [id number] [address] [place] [address] Jun, Unspecified mood [affective] disorder F39 and Generalized anxiety disorder F41.1 [facility] [address] [facility] [id number] [address] [place] [address] May, Bilious vomiting with nausea R11.14 [facility] [address] [facility] [id number] [address] [place] [address] May, Unspecified mood [affective] disorder F39 ; Generalized anxiety disorder F41.1 and Iron deficiency anemia, unspecified iron deficiency anemia type D50.9 [facility] [address] [facility] [id number] [address] [place] [address] Apr, Unspecified mood [affective] disorder F39 [facility] [address] [facility] [id number] [address] [place] [address] Apr, Iron deficiency anemia, unsp ecified iron deficiency anemia type D50.9 [facility] [address] [id number] [address] [place] [address] Apr, Iron deficiency anemia, unsp ecified iron deficiency anemia type D50.9 [facility] [address] [facility] [id number] [address] [place] [address] Apr, Unspecified mood [affective] disorder F39 [facility] [address] [facility] [id number] [address] [place] [address] 07 Apr, 2017 Abnormal CBC R79.89 [facility] [address] [facility] [id number] [address] [place] [address] 07 Apr, 2017 Abnormal CBC R79.89 [facility] [address] [facility] [id number] [address] [place] [address] 05 Apr, 2017 Encounter to establish care with new doctor Z76.89 ; Unspecified mood [affective] disorder F39 and Primary insomnia F51.01 [facility] [address] [facility] [id number] [address] [place] [address] Mar, Unspecified mood [affective] disorder F39 and Generalized anxiety disorder F41.1 [facility] [address] [place] [id number] [place] [address] Mar, Sore throat J02.9 and Strep pharyngitis J02.0 [facility] [address] [place] [id number] Feb, Dental examination Z01.20 [facility] [address] [id number] Jan, Encounter for dental examina tion Z01.20 [facility] [address] [place] [id number] [address] [place] [address] Nov, Fever, unspecified R50.9 and Acute nasopharyngitis J00 [facility] [address] [place] [id number] [address] [place] [address] 18 Sep, 2015 Abdominal pain, acute, right upper quadrant 789.01 [facility] [address] [place] [id number] [address] [place] [address] Sep, [facility] [address] [place] [id number] [address] [place] [address] Aug, Irritable bowel syndrome wit h diarrhea K58.0 [facility] [address] [facility] [id number] [address] [place] [address] 18 [place], 2016 Urinary tract infection, sit e not specified N39.0 and Back pain M54.9 [facility] [address] [facility] [id number] [address] [place] [address] Mar, Abdominal pain, acute, right upper quadrant 789.01 [facility] [address] [facility] [id number] [address] [place] [address] Mar, [facility] [address] [place] [id number] [address] [place] [address] Mar, Nausea 787.02 and Abdominal pain, acute, right upper quadrant 789.01 [facility] [address] [facility] [id number] [address] [place] [address] Mar, Nausea 787.02 and Abdominal pain 789.00 [facility] [address] [place] [id number] [address] [place] [address] Mar, Nausea 787.02 [facility] [address] [place] [id number] [place] [address] Jan, Amenorrhea 626.0 [facility] [address] [place] [id number] [place] [address] Jan, Amenorrhea 626.0 and Obesity 278.00 [facility] [address] [place] [id number] [address] [place] [address] December, Amenorrhea 626.0 and Cough 7 86.2 [facility] [address] [place] [id number] [place] [address] Nov, [facility] [address] [place] [id number] [address] [place] [address] Nov, [facility] [address] [place] [id number] [address] [place] [address] May, [facility] [address] [place] [id number] [address] [place] [address] May, [facility] [address] [place] [id number] [address] [place] [address] Mar, [facility] [address] [id number] [facility] [place] [address] Mar, [facility] [address] [id number] [facility] [place] [address] Mar, [facility] [address] [id number] [address] [place] [address], [place] [address] Mar, [facility] [address] [id number] [address] [place] [address], [place] [address] Mar, [facility] [address] [id number] [address] [place] [address], [place] [address] Mar, [facility] [address] [id number] [address] [place] [address], [place] [address] Mar, [facility] [address] [id number] [address] [place] [address], [place] [address] Mar, [facility] [address] [id number] [address] [place] [address], [place] [address] Mar, [facility] [address] [id number] [address] [place] [address], [place] [address] Mar, [facility] [address] [id number] [address] [place] [address], [place] [address] Mar, [facility] [address] [id number] [address] [place] [address], [place] [address] Mar, [facility] [address] [id number] [address] [place] [address], [place] [address] Mar, [facility] [address] [id number] [address] [place] [address], [place] [address] Mar, [facility] [address] [id number] [address] [place] [address], [place] [address] Mar, [facility] [address] [id number] [address] [place] [address], [place] [address] Feb, [facility] [address] [id number] [facility] [place] [address] Feb, 2013 [facility] [address] [id number] [address] [place] [address], [place] [address] Feb, 2013 [facility] [address] [id number] [address] [place] [address], [place] [address] Feb, 2013 [facility] [address] [id number] [address] [place] [address], [place] [address] Feb, 2013 [facility] [address] [id number] [address] [place] [address], [place] [address] Feb, 2013 [facility] [address] [id number] [address] [place] [address], [place] [address] Feb, [facility] [address] [id number] [address] [place] [address], [place] [address] Feb, [facility] [address] [id number] [address] [place] [address], [place] [address] Feb, 2013 [facility] [address] [id number] [address] [place] [address], [place] [address] Feb, 2013 [facility] [address] [id number] [address] [place] [address], [place] [address] Feb, 2013 [facility] [address] [id number] [address] [place] [address], [place] [address] Feb, [facility] [address] [id number] [address] [place] [address], [place] [address] Feb, 2013 [facility] [address] [id number] [address] [place] [address], [place] [address] Feb, 2013 [facility] [address] [id number] [address] [place] [address], [place] [address] Feb, [facility] [address] [id number] [address] [place] [address], [place] [address] Jan, [facility] [address] [id number] [address] [place] [address], [place] [address] Jan, [facility] [address] [id number] [facility] [place] [address] Jan, [facility] [address] [id number] [facility] [place] [address] Jan, [facility] [address] [id number] [address] [place] [address], [place] [address] Jan, [facility] [address] [id number] [address] [place] [address], [place] [address] Jan, [facility] [address] [id number] [address] [place] [address], [place] [address] Jan, [facility] [address] [id number] [address] [place] [address], [place] [address] Jan, [facility] [address] [id number] [address] [place] [address], [place] [address] Jan, [facility] [address] [id number] [address] [place] [address], [place] [address] Jan, [facility] [address] [id number] [address] [place] [address], [place] [address] Jan, [facility] [address] [id number] [address] [place] [address], [place] [address] Jan, [facility] [address] [id number] [address] [place] [address], [place] [address] Jan, [facility] [address] [id number] [address] [place] [address], [place] [address] December, [facility] [address] [id number] [address] [place] [address], [place] [address] December, [facility] [address] [id number] [address] [place] [address], [place] [address] December, [facility] [address] [id number] [address] [place] [address], [place] [address] December, [facility] [address] [id number] [address] [place] [address], [place] [address] December, [facility] [address] [id number] [facility] [place] [address] December, [facility] [address] [id number] [address] [place] [address], [place] [address] December, [facility] [address] [id number] [address] [place] [address], [place] [address] December, [facility] [address] [id number] [address] [place] [address], [place] [address] December, [facility] [address] [id number] [address] [place] [address], [place] [address] December, [facility] [address] [id number] [address] [place] [address], [place] [address] December, [facility] [address] [id number] [address] [place] [address], [place] [address] December, [facility] [address] [id number] [address] [place] [address], [place] [address] Nov, [facility] [address] [id number] [address] [place] [address], [place] [address] Nov, [facility] [address] [id number] [address] [place] [address], [place] [address] Oct, [facility] [address] [id number] [address] [place] [address], [place] [address] Oct, [facility] [address] [id number] [address] [place] [address], [place] [address] Oct, [facility] [address] [id number] [address] [place] [address], [place] [address] Oct, [facility] [address] [id number] [address] [place] [address], [place] [address] Oct, [facility] [address] [id number] [address] [place] [address], [place] [address] Oct, [facility] [address] [id number] [facility] [place] [address] 19 Oct, 2013 [facility] [address] [id number] [address] [place] [address], [place] [address] Oct, [facility] [address] [id number] [facility] [place] [address] 18 Oct, 2013 [facility] [address] [id number] [address] [place] [address], [place] [address] 08 Oct, 2013 [facility] [address] [id number] [address] [place] [address], [place] [address] 07 Oct, 2013 [facility] [address] [id number] [address] [place] [address], [place] [address] 06 Oct, 2013 [facility] [address] [id number] [address] [place] [address], [place] [address] Oct, [facility] [address] [id number] [address] [place] [address], [place] [address] Oct, [facility] [address] [id number] [address] [place] [address], [place] [address] 05 Oct, 2013 [facility] [address] [id number] [address] [place] [address], [place] [address] Oct, [facility] [address] [id number] [address] [place] [address], [place] [address] Oct, [facility] [address] [id number] [address] [place] [address], [place] [address] Sep, [facility] [address] [id number] [address] [place] [address], [place] [address] Sep, [facility] [address] [id number] [address] [place] [address], [place] [address] Sep, [facility] [address] [id number] [address] [place] [address], [place] [address] Jun, [facility] [address] [id number] [address] [place] [address], [place] [address] Jun, [facility] [address] [id number] [address] [place] [address], [place] [address] Jun, [facility] [address] [id number] [address] [place] [address], [place] [address] Jun, [facility] [address] [id number] [address] [place] [address], [place] [address] Jun, [facility] [address] [id number] [address] [place] [address], [place] [address] Jun, [facility] [address] [id number] [address] [place] [address], [place] [address] May, [facility] [address] [id number] [address] [place] [address], [place] [address] May, [facility] [address] [id number] [address] [place] [address], [place] [address] May, [facility] [address] [id number] [address] [place] [address], [place] [address] May, [facility] [address] [id number] [address] [place] [address], [place] [address] May, [facility] [address] [id number] [address] [place] [address] May, [facility] [address] [id number] [address] [place] [address] 26 Apr, 2013 [facility] [address] [id number] [address] [place] [address] 24 Apr, 2013 [facility] [address] [id number] [address] [place] [address], [place] [address] 23 Apr, 2013 [facility] [address] [id number] [address] [place] [address], [place] [address] 20 Apr, 2013 [facility] [address] [id number] [address] [place] [address], [place] [address] 19 Apr, 2013 [facility] [address] [id number] [address] [place] [address], [place] [address] 17 Sep, 2012 [facility] [address] [id number] [address] [place] [address], [place] [address] 13 Sep, 2012 [facility] [address] [id number] [address] [place] [address], [place] [address] 11 Apr, 2012 [facility] [address] [id number] [address] [place] [address], [place] [address] 09 Apr, 2012 [facility] [address] [id number] [address] [place] [address], [place] [address] 05 Apr, 2012 [facility] [address] [id number] [address] [place] [address], [place] [address] Mar, [facility] [address] [id number] [address] [place] [address], [place] [address] Nov, [facility] [address] [id number] [address] [place] [address], [place] [address] Oct, [facility] [address] [id number] [address] [place] [address], [place] [address] Oct, [facility] [address] [id number] [address] [place] [address], [place] [address] Sep, [facility] [address] [id number] [address] [place] [address], [place] [address] May, [facility] [address] [id number] [address] [place] [address], [place] [address] 27 May, 2012 [facility] [address] [id number] [place] [address], [place] [id number] May, [facility] [address] [id number] [address] [place] [address], [place] [phone] 11 May, 2012 [facility] [address] [id number] [address] [place] [address], [place] [id number] 24 Apr, 2011 [facility] [address] [id number] [address] [place] [address], [place] [id number] Apr, [facility] [address] [id number] [address] [place] [phone] Mar, [facility] [address] [id number] [address] [place] [id number] Feb, [facility] [address] [id number] [address] [place] [id number] Jul, [facility] [address] [id number] [address] [place] [id number] Jul, [facility] [address] [id number] [address] [place] [id number] Jul, [facility] [address] [id number] [address] [place] [phone] December, [facility] [address] [id number] [address] [place] [id number] December, [facility] [address] [id number] [address] [place] [id number] Oct, IMMUNIZATIONS No Known Immunizations SOCIAL HISTORY Never Assessed REASON FOR VISIT EMR-[facility] PLAN OF CARE VITAL SIGNS MEDICATIONS No [...]
--- OUTSIDE RECORDS SUMMARY | 2019-10-07 05:29 | XMS REPORT ---
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 Name Role Phone Migration, Doctor Unavailable Unavailable PROBLEMS Type Condition ICD9-CM Code [id number] Code Onset Dates Condition S tatus SNOMED Code Problem Generalized anxiety disorder F41.1 A ctive 03346222 Problem Iron deficiency anemia secondary to inadequate d ietary iron intake D50.8 Active 950925117 Problem Elevated erythrocyte sedimentation rate R70.0 Active [id number] Problem Primary insomnia F51.01 Active 397 2004 ALLERGIES Substance Reaction Event Type Date Status Abigail Unknown Drug Allergy Nov, Active ENCOUNTERS Encounter Location Date Diagnosis [address] [address] 25 Sep, 2018 Fever, unspecified fever cau se R50.9 ; Sore throat J02.9 ; Cough R05 ; Influenza A J10.1 and BMI 40.0-44.9, adult Z68.41 [facility] [place] [address] [address] 15 Sep, 2018 Sore throat J02.9 ; Viral up per respiratory tract infection J06.9 and BMI 40.0-44.9, adult Z68.[address] [address] 04 Jul, 2018 Bacterial conjunctivitis of right eye H10.9 and BMI 40.0-44.9, adult Z68.[address] [address] 14 Jun, 2018 Viral URI J06.9 [facility] [place] [address] [address] 07 Jun, 2018 Viral upper respiratory infe ction J06.9 ; Acute gastroenteritis K52.9 and BMI 40.0-44.9, adult Z68.41 [facility] [address] [address] May, Acute conjunctivitis of righ t eye, unspecified acute conjunctivitis type H10.31 ; Unspecified mood [affective] disorder F39 ; Generalized anxiety disorder F41.1 and BMI 40.0-44.9, adult Z68.41 [place] [address] [address] May, [place] [address] [address] Apr, Other specified abnormal fin dings of blood chemistry R79.89 [facility] [address] [address] Apr, Sore throat J02.9 ; Diarrhea , unspecified R19.7 and Vomiting, unspecified R11.10 [place] [address] [address] Apr, Chronic fatigue R53.82 ; Rey sea R11.0 and Lyme disease A69.[address] [address] Apr, [place] [address] [address] Mar, Generalized anxiety disorder F41.1 ; Unspecified mood [affective] disorder F39 ; BMI 40.0-44.9, adult Z68.41 and Myalgia M79.1 [place] [address] [address] Feb, Elevated erythrocyte sedimen tation rate R70.0 [place] [address] [address] Feb, Elevated erythrocyte sedimen tation rate R70.0 [place] [address] [address] Feb, Unprotected sexual intercour se Z72.51 ; Pain in left knee M25.562 and Pain in joints of right hand M25.541 [place] [address] [address] [place] [id number] [place] [address] Feb, Pain in left knee M25.562 an d Pain in joints of right hand M25.541 [place] [address] [address] Feb, Unspecified mood [affective] disorder F39 ; Generalized anxiety disorder F41.1 ; Pain in joints of right hand M25.541 ; Pain in joints of left hand M25.542 ; Pain in right knee M25.561 ; Pain in left knee M25.562 and Morbid (severe) obesity due to excess calories E66.01 [facility] [address] [place] [id number] [address] [place] [address] Jan, Sore throat J02.9 ; Strep th roat J02.0 ; BMI 40.0-44.9, adult Z68.41 ; Dysuria R30.0 and Acute cystitis with hematuria N30.01 [place] [address] [address] Jan, [place] [address] [address] [place] [id number] [place] [address] December, Abnormal MRI of head R93.0 [place] [address] [address] December, Subcutaneous nodules R22.9 ; Syncope, unspecified syncope type R55 ; Abnormal MRI of head R93.0 and Iron deficiency anemia secondary to inadequate dietary iron intake D50.8 [place] [address] [place] [id number] [place] [address] December, [place] [address] [place] [id number] [address] [place] [address] December, Iron deficiency anemia secon chuck to inadequate dietary iron intake D50.8 and BMI 40.0-44.9, adult Z68.41 [facility] [address] [address] Nov, Gastroenteritis K52.9 [facility] [address] [address] Nov, [place] [address] [address] Nov, Bilateral hand swelling M79. 89 ; Amenorrhea N91.2 ; Desire for Z31.9 ; Amenorrhea, unspecified N91.2 ; Bilateral swelling of feet M79.89 ; Rash R21 and Iron deficiency anemia, unspecified iron deficiency anemia type D50.9 [place] [address] [address] Nov, Bilateral hand swelling M79. 89 ; Bilateral swelling of feet M79.89 and Rash R21 [place] [address] [address] Sep, Desire for Z31.9 a nd Amenorrhea N91.2 [facility] [address] [address] Aug, Scabies B86 [place] [address] [address] Aug, Amenorrhea, unspecified N91. 2 [place] [address] [address] Aug, Amenorrhea, unspecified N91. 2 [place] [address] [address] Aug, Amenorrhea N91.2 and Iron de ficiency anemia, unspecified iron deficiency anemia type D50.9 [place] [address] [address] [place] [id number] [address] [place] [address] Aug, Iron deficiency anemia secon chuck to inadequate dietary iron intake D50.8 ; Amenorrhea N91.2 ; Generalized anxiety disorder F41.1 ; Unspecified mood [affective] disorder F39 and Nausea R11.0 [facility] [address] [facility] [id number] [address] [place] [address] Jul, Non-intractable vomiting wit h nausea, unspecified vomiting type R11.2 and Pleurisy R09.1 [facility] [address] [place] [id number] [address] [place] [address] Jul, [facility] [address] [facility] [id number] [address] [place] [address] Jun, Unspecified mood [affective] disorder F39 [place] [address] [place] [id number] [place] [address] Jun, Unspecified mood [affective] disorder F39 and Generalized anxiety disorder F41.1 [facility] [address] [place] [id number] [address] [place] [address] May, Bilious vomiting with nausea R11.14 [facility] [address] [place] [id number] [address] [place] [address] May, Unspecified mood [affective] disorder F39 ; Generalized anxiety disorder F41.1 and Iron deficiency anemia, unspecified iron deficiency anemia type D50.9 [facility] [address] [place] [id number] [place] [address] Apr, Unspecified mood [affective] disorder F39 [facility] [address] [place] [id number] [place] [address] Apr, Iron deficiency anemia, unsp ecified iron deficiency anemia type D50.9 [place] [address] [facility] [id number] [address] [place] [address] Apr, Iron deficiency anemia, unsp ecified iron deficiency anemia type D50.9 [facility] [address] [place] [id number] [address] [place] [address] Apr, Unspecified mood [affective] disorder F39 [place] [address] [address] [facility] [id number] [address] [place] [address] 07 Apr, 2017 Abnormal CBC R79.89 [facility] [address] [facility] [id number] [address] [place] [address] 07 Apr, 2017 Abnormal CBC R79.89 [facility] [address] [place] [id number] [address] [place] [address] 05 Apr, 2017 Encounter to establish care with new doctor Z76.89 ; Unspecified mood [affective] disorder F39 and Primary insomnia F51.01 [facility] [address] [facility] [id number] [address] [place] [address] Mar, Unspecified mood [affective] disorder F39 and Generalized anxiety disorder F41.1 [facility] [address] [facility] [id number] [address] [place] [address] Mar, Sore throat J02.9 and Strep pharyngitis J02.0 [facility] [id number] [place] [id number] Feb, Dental examination Z01.20 [facility] [address] [id number] Jan, Encounter for dental examina tion Z01.20 [facility] [address] [place] [id number] [place] [address] Nov, Fever, unspecified R50.9 and Acute nasopharyngitis J00 [facility] [address] [place] [id number] [address] [place] [address] 18 Sep, 2015 Abdominal pain, acute, right upper quadrant 789.01 [facility] [address] [facility] [id number] [address] [place] [address] Sep, [facility] [address] [facility] [id number] [address] [place] [address] Aug, Irritable bowel syndrome wit h diarrhea K58.0 [facility] [address] [place] [id number] [address] [place] [address] Aug, Urinary tract infection, sit e not specified N39.0 and Back pain M54.9 [facility] [address] [facility] [id number] [address] [place] [address] Mar, Abdominal pain, acute, right upper quadrant 789.01 [facility] [address] [place] [id number] [place] [address] Mar, [facility] [address] [place] [id number] [address] [place] [address] Mar, Nausea 787.02 and Abdominal pain, acute, right upper quadrant 789.01 [facility] [address] [place] [id number] [place] [address] Mar, Nausea 787.02 and Abdominal pain 789.00 [facility] [address] [place] [id number] [place] [address] Mar, Nausea 787.02 [facility] [address] [place] [id number] [place] [address] Jan, Amenorrhea 626.0 [facility] [address] [place] [id number] [place] [address] Jan, Amenorrhea 626.0 and Obesity 278.00 [facility] [address] [place] [id number] [place] [address] December, Amenorrhea 626.0 and Cough 7 86.2 [facility] [address] [place] [id number] [place] [address] Nov, [facility] [address] [place] [id number] [address] [place] [address] Nov, [facility] [address] [place] [id number] [place] [phone] May, [facility] [address] [place] [id number] [place] [address] May, [facility] [address] [id number] [facility] [place] [address] Mar, [facility] [address] [id number] [facility] [place] [address] Mar, [facility] [address] [id number] [facility] [place] [address] Mar, [facility] [address] [id number] [address] [place] [address], [place] [address] Mar, [facility] [address] [id number] [address] [place] [address], [place] [address] Mar, [facility] [address] [id number] [address] [place] [address], [place] [address] Mar, [facility] [address] [id number] [address] [place] [address], [place] [address] Mar, [facility] [address] [id number] [address] [place] [address], [place] [address] Mar, [facility] [address] [id number] [address] [place] [address], [place] [address] Mar, [facility] [address] [id number] [address] [place] [address], [place] [address] Mar, [facility] [address] [id number] [address] [place] [address], [place] [address] Mar, [facility] [address] [id number] [address] [place] [address], [place] [address] Mar, [facility] [address] [id number] [address] [place] [address], [place] [address] Mar, [facility] [address] [id number] [address] [place] [address], [place] [address] Mar, [facility] [address] [id number] [address] [place] [address], [place] [address] Mar, [facility] [address] [id number] [address] [place] [address], [place] [address] Feb, [facility] [address] [id number] [address] [place] [address], [place] [address] Feb, 2013 [facility] [address] [id number] [address] [place] [address], [place] [address] Feb, 2013 [facility] [address] [id number] [address] [place] [address], [place] [address] Feb, 2013 [facility] [address] [id number] [address] [place] [address], [place] [address] Feb, 2013 [facility] [address] [id number] [address] [place] [address], [place] [address] Feb, 2013 [facility] [address] [id number] [address] [place] [address], [place] [address] Feb, 2013 [facility] [address] [id number] [address] [place] [address], [place] [address] Feb, 2013 [facility] [address] [id number] [address] [place] [address], [place] [address] Feb, 2013 [facility] [address] [id number] [address] [place] [address], [place] [address] Feb, 2013 [facility] [address] [id number] [address] [place] [address], [place] [address] Feb, 2013 [facility] [address] [id number] [address] [place] [address], [place] [address] Feb, 2013 [facility] [address] [id number] [address] [place] [address], [place] [address] Feb, 2013 [facility] [address] [id number] [address] [place] [address], [place] [address] Feb, [facility] [address] [id number] [address] [place] [address], [place] [address] Feb, [facility] [address] [id number] [address] [place] [address], [place] [address] Jan, [facility] [address] [id number] [address] [place] [address], [place] [address] Jan, [facility] [address] [id number] [facility] [place] [address] Jan, [facility] [address] [id number] [address] [place] [address], [place] [address] Jan, [facility] [address] [id number] [address] [place] [address], [place] [address] Jan, [facility] [address] [id number] [address] [place] [address], [place] [address] Jan, [facility] [address] [id number] [address] [place] [address], [place] [address] Jan, [facility] [address] [id number] [address] [place] [address], [place] [address] Jan, [facility] [address] [id number] [address] [place] [address], [place] [address] Jan, [facility] [address] [id number] [address] [place] [address], [place] [address] Jan, [facility] [address] [id number] [address] [place] [address], [place] [address] Jan, [facility] [address] [id number] [address] [place] [address], [place] [address] Jan, [facility] [address] [id number] [address] [place] [address], [place] [address] Jan, [facility] [address] [id number] [address] [place] [address], [place] [address] December, [facility] [address] [id number] [address] [place] [address], [place] [address] December, [facility] [address] [id number] [address] [place] [address], [place] [address] December, [facility] [address] [id number] [address] [place] [address], [place] [address] December, [facility] [address] [id number] [facility] [address] December, [facility] [address] [id number] [facility] [place] [address] December, [facility] [address] [id number] [facility] [address] December, [facility] [address] [id number] [address] [place] [address], [place] [address] December, [facility] [address] [id number] [facility] [address] December, [facility] [address] [id number] [address] [place] [address], [place] [address] December, [facility] [address] [id number] [address] [place] [address], [place] [address] December, [facility] [address] [id number] [address] [place] [address], [place] [address] December, [facility] [address] [id number] [address] [place] [address], [place] [address] Nov, [facility] [address] [id number] [address] [place] [address], [place] [address] Nov, [facility] [address] [id number] [address] [place] [address], [place] [address] Oct, [facility] [address] [id number] [address] [place] [address], [place] [address] Oct, [facility] [address] [id number] [address] [place] [address], [place] [address] Oct, [facility] [address] [id number] [address] [place] [address], [place] [address] Oct, [facility] [address] [id number] [address] [place] [address], [place] [address] Oct, [facility] [address] [id number] [address] [place] [address], [place] [address] Oct, [facility] [address] [id number] [facility] [place] [address] Oct, [facility] [address] [id number] [facility] [place] [address] Oct, [facility] [address] [id number] [facility] [place] [address] 18 Oct, 2013 [facility] [address] [id number] [address] [place] [address], [place] [address] 08 Oct, 2013 [facility] [address] [id number] [address] [place] [address], [place] [address] 07 Oct, 2013 [facility] [address] [id number] [address] [place] [address], [place] [address] 06 Oct, 2013 [facility] [address] [id number] [address] [place] [address], [place] [address] Oct, [facility] [address] [id number] [address] [place] [address], [place] [address] 05 Oct, 2013 [facility] [address] [id number] [address] [place] [address], [place] [address] Oct, [facility] [address] [id number] [address] [place] [address], [place] [address] Oct, [facility] [address] [id number] [address] [place] [address], [place] [address] Oct, [facility] [address] [id number] [address] [place] [address], [place] [address] Sep, [facility] [address] [id number] [address] [place] [address], [place] [address] Sep, [facility] [address] [id number] [address] [place] [address], [place] [address] Sep, [facility] [address] [id number] [address] [place] [address], [place] [address] Jun, [facility] [address] [id number] [address] [place] [address], [place] [address] Jun, [facility] [address] [id number] [address] [place] [address], [place] [address] Jun, [facility] [address] [id number] [address] [place] [address], [place] [address] Jun, [facility] [address] [id number] [address] [place] [address], [place] [address] Jun, [facility] [address] [id number] [address] [place] [address], [place] [address] Jun, [facility] [address] [id number] [address] [place] [address], [place] [address] May, [facility] [address] [id number] [address] [place] [address], [place] [address] May, [facility] [address] [id number] [address] [place] [address], [place] [address] May, [facility] [address] [id number] [address] [place] [address], [place] [address] May, [facility] [address] [id number] [address] [place] [address], [place] [address] May, [facility] [address] [id number] [address] [place] [address], [place] [address] May, [facility] [address] [id number] [address] [place] [address], [place] [address] 26 Apr, 2013 [facility] [address] [id number] [address] [place] [address], [place] [address] 24 Apr, 2013 [facility] [address] [id number] [address] [place] [address], [place] [address] 23 Apr, 2013 [facility] [address] [id number] [address] [place] [address], [place] [address] 20 Apr, 2013 [facility] [address] [id number] [address] [place] [address], [place] [address] 19 Apr, 2013 [facility] [address] [id number] [address] [place] [address], [place] [address] 17 Apr, 2012 [facility] [address] [id number] [address] [place] [address], [place] [address] 13 Apr, 2012 [facility] [address] [id number] [address] [place] [address], [place] [address] 11 Apr, 2012 [facility] [address] [id number] [address] [place] [address], [place] [address] 09 Apr, 2013 [facility] [address] [id number] [address] [place] [address], [place] [address] 05 Apr, 2013 [facility] [address] [id number] [address] [place] [address], [place] [address] Mar, [facility] [address] [id number] [address] [place] [address], [place] [address] Nov, [facility] [address] [id number] [address] [place] [address], [place] [address] Oct, [facility] [address] [id number] [address] [place] [address], [place] [address] Oct, [facility] [address] [id number] [address] [place] [address], [place] [address] Sep, [facility] [address] [id number] [address] [place] [address], [place] [address] May, [facility] [address] [id number] [address] [place] [address] 27 May, 2012 [facility] [address] [id number] [address] [place] [address], [place] [address] May, [facility] [address] [id number] [address] [place] [address], [place] [address] 11 May, 2012 [facility] [facility] [address] [id number] [address] [place] [address], [place] [id number] 24 Apr, 2012 [facility] [address] [id number] [address] [place] [id number] Apr, [facility] [address] [id number] [address] [place] [phone] Mar, [facility] [address] [id number] [address] [place] [phone] Feb, [facility] [address] [id number] [address] [place] [phone] Jul, [facility] [address] [id number] [address] [place] [id number] Jul, [facility] [address] [id number] [address] [place] [id number] Jul, [facility] [address] [id number] [address] [place] [id number] December, [facility] [address] [id number] [address] [place] [phone] December, [facility] [address] [id number] [address] [place] [phone] Oct, IMMUNIZATIONS No Known Immunizations SOCIAL HISTORY Never Assessed REASON FOR VISIT [facility] [place] OF CARE VITAL SIGNS MEDICATIONS Medication Instructions Dosage Frequency Start Date End Date Duration S tatus Nitrofurantoin Macrocrystal 100 mg 1 cap imelda by Oral route 2 times per day for 10 day(s) antibiotic Sep, Active Amoxicillin 500 mg 2 capsule by Oral route 2 times per day for 10 day(s) Oct, Active Seasonique 0.15 mg-30 mcg (84)/10 mcg (7) take 1 tablet by oral route once daily May, Active Azithromycin 250 mg 2 Tablet by Oral rou te on day 1 then take 1 daily for 6 days Apr, Active ProAir HFA 90 mcg/actuation inhale 1 puf f by inhalation route every 4-6 hours as needed PRN Apr, Active RESULTS No Results PROCEDURES No Known procedures INSTRUCTIONS MEDICATIONS ADMINISTERED No Known Medications MEDICAL (GENERAL) HISTORY Type Description Date Medical History anemia Medical History asthma Surgical History section x2 Surgical History hernia repair Hospitalization History surgeries Hospitalization History possible gallbladder problems Hospitalization History ER visit for UTI 09/12/15 Hospitalization History dizziness, blackout 12/28/2017
--- OUTSIDE RECORDS SUMMARY | 2019-10-07 05:29 | XMS REPORT ---
Author Author Tong Jailene Doctor Organization [facility] Address Unknown Phone Unavailable Care Team Providers Care Manager Graphic Name Role Phone Migration, Doctor Unavailable Unavailable PROBLEMS Type Condition ICD9-CM Code [id number] Code Onset Dates Condition S tatus SNOMED Code Problem Generalized anxiety disorder F41.1 A ctive 22775856 Problem Iron deficiency anemia secondary to inadequate d ietary iron intake D50.8 Active 612184473 Problem Elevated erythrocyte sedimentation rate R70.0 Active 991790263 Problem Primary insomnia F51.01 Active 397 2004 ALLERGIES No Information ENCOUNTERS Encounter Location Date Diagnosis [place] [address] [address] 25 Sep, 2018 Fever, unspecified fever cau se R50.9 ; Sore throat J02.9 ; Cough R05 ; Influenza A J10.1 and BMI 40.0-44.9, adult Z68.41 [facility] [address] [address] 15 Sep, 2018 Sore throat J02.9 ; Viral up per respiratory tract infection J06.9 and BMI 40.0-44.9, adult Z68.41 [place] [address] [address] 04 Jul, 2018 Bacterial conjunctivitis of right eye H10.9 and BMI 40.0-44.9, adult Z68.41 [facility] [address] [address] 14 Jun, 2018 Viral URI J06.9 [facility] [address] [address] 07 Jun, 2018 Viral upper respiratory infe ction J06.9 ; Acute gastroenteritis K52.9 and BMI 40.0-44.9, adult Z68.41 [place] [id number] [address] [place] [address] May, Acute conjunctivitis of righ t eye, unspecified acute conjunctivitis type H10.31 ; Unspecified mood [affective] disorder F39 ; Generalized anxiety disorder F41.1 and BMI 40.0-44.9, adult Z68.41 [place] [address] [address] May, [place] [address] [address] Apr, Other specified abnormal fin dings of blood chemistry R79.89 [facility] [address] [address] Apr, Sore throat J02.9 ; Diarrhea , unspecified R19.7 and Vomiting, unspecified R11.[address] [address] Apr, Chronic fatigue R53.82 ; Rey sea R11.0 and Lyme disease A69.20 [place] [address] [address] Apr, [place] [address] [address] Mar, Generalized anxiety disorder F41.1 ; Unspecified mood [affective] disorder F39 ; BMI 40.0-44.9, adult Z68.41 and Myalgia M79.1 [place] [address] [place] [id number] [address] [place] [address] Feb, Elevated erythrocyte sedimen tation rate R70.[address] [address] Feb, Elevated erythrocyte sedimen tation rate R70.0 [place] [address] [address] Feb, Unprotected sexual intercour se Z72.51 ; Pain in left knee M25.562 and Pain in joints of right hand M25.541 [facility] [address] [place] [id number] [address] [place] [address] Feb, Pain in left knee M25.562 an d Pain in joints of right hand M25.541 [facility] [address] [place] [id number] [place] [address] Feb, Unspecified mood [affective] disorder F39 ; Generalized anxiety disorder F41.1 ; Pain in joints of right hand M25.541 ; Pain in joints of left hand M25.542 ; Pain in right knee M25.561 ; Pain in left knee M25.562 and Morbid (severe) obesity due to excess calories E66.01 [facility] [address] [facility] [id number] [address] [place] [address] Jan, Sore throat J02.9 ; Strep th roat J02.0 ; BMI 40.0-44.9, adult Z68.41 ; Dysuria R30.0 and Acute cystitis with hematuria N30.01 [place] [address] [place] [address] Jan, [place] [address] [address] December, Abnormal MRI of head R93.0 [place] [address] [address] December, Subcutaneous nodules R22.9 ; Syncope, unspecified syncope type R55 ; Abnormal MRI of head R93.0 and Iron deficiency anemia secondary to inadequate dietary iron intake D50.8 [place] [address] [place] [id number] [address] [place] [address] December, [place] [address] [place] [id number] [place] [address] December, Iron deficiency anemia secon chuck to inadequate dietary iron intake D50.8 and BMI 40.0-44.9, adult Z68.41 [facility] [address] [place] [id number] [address] [place] [address] Nov, Gastroenteritis K52.9 [place] [address] [address] Nov, [place] [address] [address] Nov, Bilateral hand swelling M79. 89 ; Amenorrhea N91.2 ; Desire for Z31.9 ; Amenorrhea, unspecified N91.2 ; Bilateral swelling of feet M79.89 ; Rash R21 and Iron deficiency anemia, unspecified iron deficiency anemia type D50.9 [place] [address] [address] Nov, Bilateral hand swelling M79. 89 ; Bilateral swelling of feet M79.89 and Rash R21 [place] [address] [address] Sep, Desire for Z31.9 a nd Amenorrhea N91.2 [facility] IN [facility] [address] [address] Aug, Scabies B86 [place] [address] [place] [id number] [address] [place] [address] Aug, Amenorrhea, unspecified N91. 2 [place] [address] [address] Aug, Amenorrhea, unspecified N91. 2 [place] [address] [address] Aug, Amenorrhea N91.2 and Iron de ficiency anemia, unspecified iron deficiency anemia type D50.9 [place] [address] [address] [place] [id number] [address] [place] [address] Aug, Iron deficiency anemia secon chuck to inadequate dietary iron intake D50.8 ; Amenorrhea N91.2 ; Generalized anxiety disorder F41.1 ; Unspecified mood [affective] disorder F39 and Nausea R11.0 [facility] [address] [id number] [address] [place] [address] Jul, Non-intractable vomiting wit h nausea, unspecified vomiting type R11.2 and Pleurisy R09.1 [facility] [address] [facility] [id number] [address] [place] [address] Jul, [facility] [address] [facility] [id number] [address] [place] [address] Jun, Unspecified mood [affective] disorder F39 [place] [address] [address] [facility] [id number] [address] [place] [address] Jun, Unspecified mood [affective] disorder F39 and Generalized anxiety disorder F41.1 [facility] [address] [facility] [id number] [address] [place] [address] May, Bilious vomiting with nausea R11.14 [facility] [address] [facility] [id number] [address] [place] [address] May, Unspecified mood [affective] disorder F39 ; Generalized anxiety disorder F41.1 and Iron deficiency anemia, unspecified iron deficiency anemia type D50.9 [facility] [address] [facility] [id number] [address] [place] [address] Apr, Unspecified mood [affective] disorder F39 [facility] [address] [facility] [id number] [address] [place] [address] Apr, Iron deficiency anemia, unsp ecified iron deficiency anemia type D50.9 [facility] [address] [id number] [address] [place] [address] Apr, Iron deficiency anemia, unsp ecified iron deficiency anemia type D50.9 [facility] [address] [facility] [id number] [address] [place] [address] Apr, Unspecified mood [affective] disorder F39 [facility] [address] [facility] [id number] [address] [place] [address] 07 Apr, 2017 Abnormal CBC R79.89 [facility] [address] [facility] [id number] [address] [place] [address] 07 Apr, 2017 Abnormal CBC R79.89 [facility] [address] [facility] [id number] [address] [place] [address] 05 Apr, 2017 Encounter to establish care with new doctor Z76.89 ; Unspecified mood [affective] disorder F39 and Primary insomnia F51.01 [facility] [address] [facility] [id number] [address] [place] [address] Mar, Unspecified mood [affective] disorder F39 and Generalized anxiety disorder F41.1 [facility] [address] [place] [id number] [address] [place] [address] Mar, Sore throat J02.9 and Strep pharyngitis J02.0 [facility] [id number] [place] [id number] Feb, Dental examination Z01.20 [facility] [address] [id number] Jan, Encounter for dental examina tion Z01.20 [facility] [address] [place] [id number] [address] [place] [address] Nov, Fever, unspecified R50.9 and Acute nasopharyngitis J00 [facility] [address] [place] [id number] [address] [place] [address] 18 Sep, 2015 Abdominal pain, acute, right upper quadrant 789.01 [facility] [address] [place] [id number] [address] [place] [address] Sep, [facility] [address] [place] [id number] [address] [place] [address] Aug, Irritable bowel syndrome wit h diarrhea K58.0 [facility] [address] [facility] [id number] [address] [place] [address] 18 [place], 2016 Urinary tract infection, sit e not specified N39.0 and Back pain M54.9 [facility] [address] [facility] [id number] [address] [place] [address] Mar, Abdominal pain, acute, right upper quadrant 789.01 [facility] [address] [facility] [id number] [address] [place] [address] Mar, [facility] [address] [place] [id number] [address] [place] [address] Mar, Nausea 787.02 and Abdominal pain, acute, right upper quadrant 789.01 [facility] [address] [facility] [id number] [address] [place] [address] Mar, Nausea 787.02 and Abdominal pain 789.00 [facility] [address] [place] [id number] [address] [place] [address] Mar, Nausea 787.02 [facility] [address] [place] [id number] [address] [place] [address] Jan, Amenorrhea 626.0 [facility] [address] [place] [id number] [place] [address] Jan, Amenorrhea 626.0 and Obesity 278.00 [facility] [address] [place] [id number] [address] [place] [address] December, Amenorrhea 626.0 and Cough 7 86.2 [facility] [address] [place] [id number] [address] [place] [address] Nov, [facility] [address] [place] [id number] [address] [place] [id number] Nov, [facility] [address] [place] [id number] [address] [place] [address] May, [facility] [address] [place] [id number] [address] [place] [address] May, [facility] [address] [place] [id number] [address] [place] [address] Mar, [facility] [address] [id number] [facility] [place] [address] Mar, [facility] [address] [id number] [facility] [place] [address] Mar, [facility] [address] [id number] [address] [place] [address], [place] [address] Mar, [facility] [address] [id number] [address] [place] [address], [place] [address] Mar, [facility] [address] [id number] [address] [place] [address], [place] [address] Mar, [facility] [address] [id number] [address] [place] [address], [place] [address] Mar, [facility] [address] [id number] [address] [place] [address], [place] [address] Mar, [facility] [address] [id number] [address] [place] [address], [place] [address] Mar, [facility] [address] [id number] [address] [place] [address], [place] [address] Mar, [facility] [address] [id number] [address] [place] [address], [place] [address] Mar, [facility] [address] [id number] [address] [place] [address], [place] [address] Mar, [facility] [address] [id number] [address] [place] [address], [place] [address] Mar, [facility] [address] [id number] [address] [place] [address], [place] [address] Mar, [facility] [address] [id number] [address] [place] [address], [place] [address] Mar, [facility] [address] [id number] [address] [place] [address], [place] [address] Feb, [facility] [address] [id number] [facility] [place] [address] Feb, 2013 [facility] [address] [id number] [address] [place] [address], [place] [address] Feb, 2013 [facility] [address] [id number] [address] [place] [address], [place] [address] Feb, 2013 [facility] [address] [id number] [address] [place] [address], [place] [address] Feb, 2013 [facility] [address] [id number] [address] [place] [address], [place] [address] Feb, 2013 [facility] [address] [id number] [address] [place] [address], [place] [address] Feb, [facility] [address] [id number] [address] [place] [address], [place] [address] Feb, [facility] [address] [id number] [address] [place] [address], [place] [address] Feb, 2013 [facility] [address] [id number] [address] [place] [address], [place] [address] Feb, 2013 [facility] [address] [id number] [address] [place] [address], [place] [address] Feb, 2013 [facility] [address] [id number] [address] [place] [address], [place] [address] Feb, [facility] [address] [id number] [address] [place] [address], [place] [address] Feb, 2013 [facility] [address] [id number] [address] [place] [address], [place] [address] Feb, 2013 [facility] [address] [id number] [address] [place] [address], [place] [address] Feb, [facility] [address] [id number] [address] [place] [address], [place] [address] Jan, [facility] [address] [id number] [address] [place] [address], [place] [address] Jan, [facility] [address] [id number] [facility] [place] [address] Jan, [facility] [address] [id number] [facility] [place] [address] Jan, [facility] [address] [id number] [address] [place] [address], [place] [address] Jan, [facility] [address] [id number] [address] [place] [address], [place] [address] Jan, [facility] [address] [id number] [address] [place] [address], [place] [address] Jan, [facility] [address] [id number] [address] [place] [address], [place] [address] Jan, [facility] [address] [id number] [address] [place] [address], [place] [address] Jan, [facility] [address] [id number] [address] [place] [address], [place] [address] Jan, [facility] [address] [id number] [address] [place] [address], [place] [address] Jan, [facility] [address] [id number] [address] [place] [address], [place] [address] Jan, [facility] [address] [id number] [address] [place] [address], [place] [address] Jan, [facility] [address] [id number] [address] [place] [address], [place] [address] December, [facility] [address] [id number] [address] [place] [address], [place] [address] December, [facility] [address] [id number] [address] [place] [address], [place] [address] December, [facility] [address] [id number] [address] [place] [address], [place] [address] December, [facility] [address] [id number] [address] [place] [address], [place] [address] December, [facility] [address] [id number] [facility] [place] [address] December, [facility] [address] [id number] [address] [place] [address], [place] [address] December, [facility] [address] [id number] [address] [place] [address], [place] [address] December, [facility] [address] [id number] [address] [place] [address], [place] [address] December, [facility] [address] [id number] [address] [place] [address], [place] [address] December, [facility] [address] [id number] [address] [place] [address], [place] [address] December, [facility] [address] [id number] [address] [place] [address], [place] [address] December, [facility] [address] [id number] [address] [place] [address], [place] [address] Nov, [facility] [address] [id number] [address] [place] [address], [place] [address] Nov, [facility] [address] [id number] [address] [place] [address], [place] [address] Oct, [facility] [address] [id number] [address] [place] [address], [place] [address] Oct, [facility] [address] [id number] [address] [place] [address], [place] [address] Oct, [facility] [address] [id number] [address] [place] [address], [place] [address] Oct, [facility] [address] [id number] [address] [place] [address], [place] [address] Oct, [facility] [address] [id number] [address] [place] [address], [place] [address] Oct, [facility] [address] [id number] [facility] [place] [address] 19 Oct, 2013 [facility] [address] [id number] [address] [place] [address], [place] [address] Oct, [facility] [address] [id number] [facility] [place] [address] 18 Oct, 2013 [facility] [address] [id number] [address] [place] [address], [place] [address] 08 Oct, 2013 [facility] [address] [id number] [address] [place] [address], [place] [address] 07 Oct, 2013 [facility] [address] [id number] [address] [place] [address], [place] [address] 06 Oct, 2013 [facility] [address] [id number] [address] [place] [address], [place] [address] Oct, [facility] [address] [id number] [address] [place] [address], [place] [address] Oct, [facility] [address] [id number] [address] [place] [address], [place] [address] 05 Oct, 2013 [facility] [address] [id number] [address] [place] [address], [place] [address] Oct, [facility] [address] [id number] [address] [place] [address], [place] [address] Oct, [facility] [address] [id number] [address] [place] [address], [place] [address] Sep, [facility] [address] [id number] [address] [place] [address], [place] [id number] Sep, [facility] [address] [id number] [address] [place] [address], [place] [id number] Sep, [facility] [address] [id number] [address] [place] [address], [place] [address] Jun, [facility] [address] [id number] [address] [place] [address], [place] [id number] Jun, [facility] [address] [id number] [address] [place] [address], [place] [id number] Jun, [facility] [address] [id number] [address] [place] [address], [place] [id number] Jun, [facility] [address] [id number] [address] [place] [address], [place] [address] Jun, [facility] [address] [id number] [address] [place] [address], [place] [address] Jun, [facility] [address] [id number] [address] [place] [address], [place] [address] May, [facility] [address] [id number] [address] [place] [address], [place] [address] May, [facility] [address] [id number] [address] [place] [address], [place] [address] May, [facility] [address] [id number] [address] [place] [address], [place] [address] May, [facility] [address] [id number] [address] [place] [address], [place] [address] May, [facility] [address] [id number] [address] [place] [id number] May, [facility] [address] [id number] [address] [place] [id number] 26 Apr, 2013 [facility] [address] [id number] [address] [place] [id number] 24 Apr, 2013 [facility] [address] [id number] [address] [place] [address], [place] [id number] 23 Apr, 2013 [facility] [address] [id number] [address] [place] [address], [place] [id number] 20 Apr, 2013 [facility] [address] [id number] [address] [place] [address], [place] [id number] 19 Apr, 2013 [facility] [address] [id number] [address] [place] [address], [place] [id number] 17 Sep, 2012 [facility] [address] [id number] [address] [place] [address], [place] [id number] 13 Sep, 2012 [facility] [address] [id number] [address] [place] [address], [place] [id number] 11 Apr, 2012 [facility] [address] [id number] [address] [place] [address], [place] [id number] 09 Apr, 2012 [facility] [address] [id number] [address] [place] [address], [place] [id number] 05 Apr, 2012 [facility] [address] [id number] [address] [place] [address], [place] [id number] Mar, [facility] [address] [id number] [address] [place] [address], [place] [address] Nov, [facility] [address] [id number] [address] [place] [address], [place] [id number] Oct, [facility] [address] [id number] [address] [place] [address], [place] [id number] Oct, [facility] [address] [id number] [address] [place] [address], [place] [id number] Sep, [facility] [address] [id number] [address] [place] [address], [place] [address] May, [facility] [address] [id number] [address] [place] [address], [place] [id number] 27 May, 2012 [facility] [address] [id number] [address] [place] [address], [place] [address] May, [facility] [address] [id number] [address] [place] [address], [place] [id number] 11 May, 2012 [facility] [address] [id number] [address] [place] [address], [place] [id number] 24 Apr, 2011 [facility] [address] [id number] [address] [place] [address], [place] [id number] Apr, [facility] [address] [id number] [address] [place] [id number] Mar, [facility] [address] [id number] [address] [place] [id number] Feb, [facility] [address] [id number] [address] [place] [id number] Jul, [facility] [address] [id number] [address] [place] [id number] Jul, [facility] [address] [id number] [address] [place] [id number] Jul, [facility] [address] [id number] [address] [place] [id number] December, [facility] [address] [id number] [address] [place] [id number] December, [facility] [address] [id number] [address] [place] [id number] Oct, IMMUNIZATIONS No Known Immunizations SOCIAL HISTORY Never Assessed REASON FOR VISIT [facility] [place] PLAN OF CARE VITAL SIGNS MEDICATIONS No [...]
--- OUTSIDE RECORDS SUMMARY | 2019-10-07 05:30 | XMS REPORT ---
Author Author Jailene FARAH [facility] Address [address] [place] [address] Care Team Providers Care Produce Service Team Member Name Role Phone GAGAN MACK Unavailable PROBLEMS Type Condition ICD9-CM Code [id number] Code Onset Dates Condition S tatus SNOMED Code Problem Elevated erythrocyte sedimentation rate R70.0 Active 029662538 Problem Generalized anxiety disorder F41.1 A ctive 36845708 Problem Primary insomnia F51.01 Active 397 2004 Problem Morbid (severe) obesity due to excess calories E66 .01 Active 206992382 Problem Body mass index (BMI) of 40.0-44.9 in adult Z68.41 Active 776576667 Problem Sore throat J02.9 Active 38049200 3 Problem Chronic fatigue R53.82 Active 8422 9001 Problem Iron deficiency anemia secondary to inadequate d ietary iron intake D50.8 Active 525482031 Problem Unspecified mood [affective] disorder F39 Active 50169314 Problem Desire for Z31.9 Active 952532056 Problem Amenorrhea N91.2 Active 14562396 ALLERGIES No Information ENCOUNTERS Encounter Location Date Diagnosis [facility] [address] [id number] [address] [place] [address] 10 May, 2018 Acute conjunctivitis of righ t eye, unspecified acute conjunctivitis type H10.31 ; Unspecified mood [affective] disorder F39 ; Generalized anxiety disorder F41.1 and BMI 40.0-44.9, adult Z68.41 [facility] [address] [id number] [address] [place] [address] May, [facility] [address] [id number] [address] [place] [address] Apr, Other specified abnormal fin dings of blood chemistry R79.89 [facility] [address] [address] Apr, Sore throat J02.9 ; Diarrhea , unspecified R19.7 and Vomiting, unspecified R11.10 [place] [address] [address] Apr, Chronic fatigue R53.82 ; Rey sea R11.0 and Lyme disease A69.20 [place] [address] [address] Apr, [place] [address] [address] Mar, Generalized anxiety disorder F41.1 ; Unspecified mood [affective] disorder F39 ; BMI 40.0-44.9, adult Z68.41 and Myalgia M79.1 [place] [address] [address] Feb, Elevated erythrocyte sedimen tation rate R70.0 [place] [address] [address] Feb, Elevated erythrocyte sedimen tation rate R70.0 [place] [address] [address] Feb, Unprotected sexual intercour se Z72.51 ; Pain in left knee M25.562 and Pain in joints of right hand M25.541 [place] [address] [address] Feb, Pain in left knee M25.562 an d Pain in joints of right hand M25.541 [place] [address] [address] Feb, Unspecified mood [affective] disorder F39 ; Generalized anxiety disorder F41.1 ; Pain in joints of right hand M25.541 ; Pain in joints of left hand M25.542 ; Pain in right knee M25.561 ; Pain in left knee M25.562 and Morbid (severe) obesity due to excess calories E66.01 [facility] [address] [address] Jan, Sore throat J02.9 ; Strep th roat J02.0 ; BMI 40.0-44.9, adult Z68.41 ; Dysuria R30.0 and Acute cystitis with hematuria N30.01 [place] [address] [address] Jan, [place] [address] [address] December, Abnormal MRI of head R93.[address] [address] December, Subcutaneous nodules R22.9 ; Syncope, unspecified syncope type R55 ; Abnormal MRI of head R93.0 and Iron deficiency anemia secondary to inadequate dietary iron intake D50.8 [place] [address] [address] December, [place] [address] [address] December, Iron deficiency anemia secon chuck to inadequate dietary iron intake D50.8 and BMI 40.0-44.9, adult Z68.41 [facility] [address] [address] Nov, Gastroenteritis K52.9 [place] [address] [address] Nov, [place] [address] [address] Nov, Bilateral hand swelling M79. 89 ; Amenorrhea N91.2 ; Desire for Z31.9 ; Amenorrhea, unspecified N91.2 ; Bilateral swelling of feet M79.89 ; Rash R21 and Iron deficiency anemia, unspecified iron deficiency anemia type D50.9 [place] [address] [address] Nov, Bilateral hand swelling M79. 89 ; Bilateral swelling of feet M79.89 and Rash R21 [place] [address] [address] Sep, Desire for Z31.9 a nd Amenorrhea N91.2 [place] [address] [address] Aug, Scabies B86 [place] [address] [address] Aug, Amenorrhea, unspecified N91. 2 [place] [address] [address] Aug, Amenorrhea, unspecified N91. 2 [place] [address] [address] Aug, Amenorrhea N91.2 and Iron de ficiency anemia, unspecified iron deficiency anemia type D50.9 [place] [address] [address] Aug, Iron deficiency anemia secon chuck to inadequate dietary iron intake D50.8 ; Amenorrhea N91.2 ; Generalized anxiety disorder F41.1 ; Unspecified mood [affective] disorder F39 and Nausea R11.0 [place] [address] [address] Jul, Non-intractable vomiting wit h nausea, unspecified vomiting type R11.2 and Pleurisy R09.1 [place] [address] [address] Jul, [place] [address] [address] Jun, Unspecified mood [affective] disorder F39 [place] [address] [address] Jun, Unspecified mood [affective] disorder F39 and Generalized anxiety disorder F41.1 [facility] [address] [facility] [id number] [address] [place] [address] May, Bilious vomiting with nausea R11.14 [facility] [address] [facility] [id number] [address] [place] [address] May, Unspecified mood [affective] disorder F39 ; Generalized anxiety disorder F41.1 and Iron deficiency anemia, unspecified iron deficiency anemia type D50.9 [facility] [address] [facility] [id number] [address] [place] [address] Apr, Unspecified mood [affective] disorder F39 [facility] [address] [facility] [id number] [address] [place] [address] Apr, Iron deficiency anemia, unsp ecified iron deficiency anemia type D50.9 [facility] [address] [facility] [id number] [address] [place] [address] Apr, Iron deficiency anemia, unsp ecified iron deficiency anemia type D50.9 [facility] [address] [facility] [id number] [address] [place] [address] Apr, Unspecified mood [affective] disorder F39 [facility] [address] [facility] [id number] [address] [place] [address] Apr, Abnormal CBC R79.89 [facility] [address] [facility] [id number] [address] [place] [address] 07 Apr, 2017 Abnormal CBC R79.89 [facility] [address] [facility] [id number] [address] [place] [address] 05 Apr, 2017 Encounter to establish care with new doctor Z76.89 ; Unspecified mood [affective] disorder F39 and Primary insomnia F51.01 [facility] [address] [facility] [id number] [address] [place] [address] Mar, Unspecified mood [affective] disorder F39 and Generalized anxiety disorder F41.1 [facility] [address] [id number] [address] [place] [address] Mar, Sore throat J02.9 and Strep pharyngitis J02.0 [facility] [address] [id number] [address] [place] [id number] Feb, Dental examination Z01.20 [facility] [address] [id number] [address] [place] [id number] Jan, Encounter for dental examina tion Z01.20 [facility] [address] [id number] [address] [place] [address] Nov, Fever, unspecified R50.9 and Acute nasopharyngitis J00 [facility] [address] [id number] [address] [place] [address] 18 Sep, 2015 Abdominal pain, acute, right upper quadrant 789.01 [facility] [address] [address] Sep, [facility] [address] [address] Aug, Irritable bowel syndrome wit h diarrhea K58.0 [facility] [address] [id number] [address] [place] [address] Aug, Urinary tract infection, sit e not specified N39.0 and Back pain M54.9 [facility] [address] [id number] [address] [place] [address] Mar, Abdominal pain, acute, right upper quadrant 789.01 [facility] [address] [id number] [address] [place] [address] Mar, [facility] [address] [address] Mar, Nausea 787.02 and Abdominal pain, acute, right upper quadrant 789.01 [facility] [address] [id number] [address] [place] [address] Mar, Nausea 787.02 and Abdominal pain 789.00 [facility] [address] [id number] [address] [place] [address] Mar, Nausea 787.02 [facility] [address] [id number] [address] [place] [address] Jan, Amenorrhea 626.0 [facility] [address] [id number] [address] [place] [address] Jan, Amenorrhea 626.0 and Obesity 278.00 [facility] [address] [id number] [address] [place] [address] December, Amenorrhea 626.0 and Cough 7 86.2 [facility] [address] [id number] [address] [place] [address] Nov, [facility] [address] [id number] [address] [place] [address] Nov, [facility] [address] [id number] [address] [place] [address] May, [facility] [address] [id number] [address] [place] [address] May, [facility] [address] [id number] [address] [place] [address] Mar, [facility] [address] [id number] [address] [place] [address] Mar, [facility] [address] [id number] [address] [place] [address] Mar, [facility] [address] [id number] [address] [place] [address] Mar, [facility] [address] [id number] [address] [place] [address] Mar, [facility] [address] [id number] [address] [place] [address] Mar, [facility] [address] [id number] [facility] [place] [address] Mar, [facility] [address] [id number] [address] [place] [address], [place] [address] Mar, [facility] [address] [id number] [address] [place] [address], [place] [address] Mar, [facility] [address] [id number] [address] [place] [address], [place] [address] Mar, [facility] [address] [id number] [address] [place] [address], [place] [address] Mar, [facility] [address] [id number] [address] [place] [address], [place] [address] Mar, [facility] [address] [id number] [address] [place] [address], [place] [address] Mar, [facility] [address] [id number] [address] [place] [address], [place] [address] Mar, [facility] [address] [id number] [address] [place] [address], [place] [address] Mar, [facility] [address] [id number] [address] [place] [address], [place] [address] Feb, [facility] [address] [id number] [address] [place] [address], [place] [address] Feb, [facility] [address] [id number] [address] [place] [address], [place] [address] Feb, [facility] [address] [id number] [address] [place] [address], [place] [address] Feb, [facility] [address] [id number] [address] [place] [address], [place] [address] Feb, [facility] [address] [id number] [address] [place] [address], [place] [address] Feb, [facility] [address] [id number] [address] [place] [address], [place] [address] Feb, [facility] [address] [id number] [facility] [place] [address] Feb, 2013 [facility] [address] [id number] [address] [place] [address], [place] [address] Feb, 2013 [facility] [address] [id number] [address] [place] [address], [place] [address] Feb, 2013 [facility] [address] [id number] [address] [place] [address], [place] [address] Feb, 2013 [facility] [address] [id number] [address] [place] [address], [place] [address] Feb, 2013 [facility] [address] [id number] [address] [place] [address], [place] [address] Feb, 2013 [facility] [address] [id number] [address] [place] [address], [place] [address] Feb, 2013 [facility] [address] [id number] [address] [place] [address], [place] [address] Feb, [facility] [address] [id number] [address] [place] [address], [place] [address] Jan, [facility] [address] [id number] [address] [place] [address], [place] [address] Jan, [facility] [address] [id number] [address] [place] [address], [place] [address] Jan, [facility] [address] [id number] [address] [place] [address], [place] [address] Jan, [facility] [address] [id number] [address] [place] [address], [place] [address] Jan, [facility] [address] [id number] [address] [place] [address], [place] [address] Jan, [facility] [address] [id number] [address] [place] [address], [place] [address] Jan, [facility] [address] [id number] [address] [place] [address], [place] [address] Jan, [facility] [address] [id number] [facility] [place] [address] Jan, [facility] [address] [id number] [facility] [place] [address] Jan, [facility] [address] [id number] [address] [place] [address], [place] [address] Jan, [facility] [address] [id number] [address] [place] [address], [place] [address] Jan, [facility] [address] [id number] [address] [place] [address], [place] [address] Jan, [facility] [address] [id number] [address] [place] [address], [place] [address] December, [facility] [address] [id number] [address] [place] [address], [place] [address] December, [facility] [address] [id number] [address] [place] [address], [place] [address] December, [facility] [address] [id number] [address] [place] [address], [place] [address] December, [facility] [address] [id number] [address] [place] [address], [place] [address] December, [facility] [address] [id number] [address] [place] [address], [place] [address] December, [facility] [address] [id number] [address] [place] [address], [place] [address] December, [facility] [address] [id number] [address] [place] [address], [place] [address] December, [facility] [address] [id number] [address] [place] [address], [place] [address] December, [facility] [address] [id number] [address] [place] [address], [place] [address] December, [facility] [address] [id number] [facility] [place] [address] 14 Dec, 2013 [facility] [address] [id number] [facility] [place] [address] 14 Dec, 2013 [facility] [address] [id number] [address] [place] [address], [place] [address] 16 Nov, 2013 [facility] [address] [id number] [address] [place] [address], [place] [address] 16 Nov, 2013 [facility] [address] [id number] [address] [place] [address], [place] [address] 22 Oct, 2013 [facility] [address] [id number] [address] [place] [address], [place] [address] 21 Oct, 2013 [facility] [address] [id number] [address] [place] [address], [place] [address] 20 Oct, 2013 [facility] [address] [id number] [address] [place] [address], [place] [address] 20 Oct, 2013 [facility] [address] [id number] [address] [place] [address], [place] [address] 19 Oct, 2013 [facility] [address] [id number] [address] [place] [address], [place] [address] 19 Oct, 2013 [facility] [address] [id number] [address] [place] [address], [place] [address] 19 Oct, 2013 [facility] [address] [id number] [address] [place] [address], [place] [address] 19 Oct, 2013 [facility] [address] [id number] [address] [place] [address], [place] [address] 18 Oct, 2013 [facility] [address] [id number] [address] [place] [address], [place] [address] 08 Oct, 2013 [facility] [address] [id number] [address] [place] [address], [place] [address] 07 Oct, 2013 [facility] [address] [id number] [address] [place] [address], [place] [address] Oct, [facility] [address] [id number] [address] [place] [address], [place] [address] Oct, [facility] [address] [id number] [address] [place] [address], [place] [address] Oct, [facility] [address] [id number] [address] [place] [address], [place] [address] Oct, [facility] [address] [id number] [address] [place] [address], [place] [address] Oct, [facility] [address] [id number] [address] [place] [address], [place] [address] Oct, [facility] [address] [id number] [address] [place] [address], [place] [address] Sep, [facility] [address] [id number] [address] [place] [address], [place] [address] Sep, [facility] [address] [id number] [address] [place] [address], [place] [address] Sep, [facility] [address] [id number] [address] [place] [address], [place] [address] Jun, [facility] [address] [id number] [address] [place] [address], [place] [address] Jun, [facility] [address] [id number] [address] [place] [address], [place] [address] Jun, [facility] [address] [id number] [address] [place] [address] Jun, [facility] [address] [id number] [address] [place] [address], [place] [address] Jun, [facility] [address] [id number] [address] [place] [address], [place] [address] Jun, [facility] [address] [id number] [address] [place] [address], [place] [address] May, [facility] [address] [id number] [address] [place] [address], [place] [address] 24 May, 2013 [facility] [address] [id number] [address] [place] [address], [place] [address] 22 May, 2013 [facility] [address] [id number] [address] [place] [address], [place] [address] 15 May, 2013 [facility] [address] [id number] [address] [place] [address], [place] [address] 15 May, 2013 [facility] [address] [id number] [address] [place] [address], [place] [phone] May, [facility] [address] [id number] [address] [place] [address], [place] [address] 26 Apr, 2013 [facility] [address] [id number] [address] [place] [address], [place] [address] 24 Apr, 2013 [facility] [address] [id number] [address] [place] [address], [place] [address] 23 Apr, 2012 [facility] [address] [id number] [address] [place] [address], [place] [address] 20 Apr, 2012 [facility] [address] [id number] [address] [place] [address], [place] [address] 19 Apr, 2013 [facility] [address] [id number] [address] [place] [address], [place] [address] 17 Apr, 2012 [facility] [address] [id number] [address] [place] [address], [place] [address] 13 Apr, 2012 [facility] [address] [id number] [address] [place] [address], [place] [address] 11 Apr, 2012 [facility] [address] [id number] [address] [place] [address], [place] [address] 09 Apr, 2012 [facility] [address] [id number] [address] [place] [address], [place] [address] 05 Apr, 2012 [facility] [address] [id number] [address] [place] [address], [place] [address] Mar, [facility] [address] [id number] [address] [place] [address], [place] [address] Nov, [facility] [address] [id number] [address] [place] [address], [place] [id number] Oct, [facility] [address] [id number] [address] [place] [address], [place] [phone] Oct, [facility] [address] [id number] [address] [place] [address], [place] [address] Sep, [facility] [address] [id number] [address] [place] [address], [place] [phone] May, [facility] [address] [id number] [address] [place] [address], [place] [address] May, [facility] [address] [id number] [address] [place] [address], [place] [address] May, [facility] [address] [id number] [address] [place] [address], [place] [phone] May, [facility] [address] [id number] [address] [place] [address], [place] [address] Apr, [facility] [address] [id number] [address] [place] [address], [place] [address] Apr, [facility] [address] [id number] [address] [place] [address], [place] [address] Mar, [facility] [address] [id number] [address] [place] [address], [place] [address] Feb, [facility] [address] [id number] [address] [place] [address], [place] [phone] Jul, [facility] [address] [id number] [address] [place] [address], [place] [address] Jul, [facility] [address] [id number] [address] [place] [address], [place] [address] Jul, [facility] [facility] [address] [id number] [address] [place] [id number] 10 Dec, 2010 [facility] [address] [facility] [id number] [address] [place] [id number] December, [facility] [address] [facility] [id number] [address] [place] [id number] 10 Oct, 2009 IMMUNIZATIONS No Known Immunizations SOCIAL HISTORY Never Assessed REASON FOR VISIT Refill request PLAN OF CARE VITAL SIGNS MEDICATIONS No [...]
--- OUTSIDE RECORDS SUMMARY | 2019-10-07 05:30 | XMS REPORT ---
Author Author Jailene HAY 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 Name Role Phone HAY, CRISTIANA Unavailable PROBLEMS Type Condition ICD9-CM Code [id number] Code Onset Dates Condition S tatus SNOMED Code Problem Iron deficiency anemia secondary to inadequate d ietary iron intake D50.8 Active 769811793 Problem Generalized anxiety disorder F41.1 A ctive 27727276 Problem Primary insomnia F51.01 Active 397 2004 Problem Elevated erythrocyte sedimentation rate R70.0 Active [id number] ALLERGIES Substance Reaction Event Type Date Status Lamotrigine rash Drug Allergy Jul, Active Abigail Unknown Drug Allergy Jul, Active ENCOUNTERS Encounter Location Date Diagnosis [place] [address] [address] 04 Jul, 2018 Bacterial conjunctivitis of right eye H10.9 and BMI 40.0-44.9, adult Z68.[address] [address] 14 Jun, 2018 Viral URI J06.9 [facility] [address] [address] 07 Jun, 2018 Viral upper respiratory infe ction J06.9 ; Acute gastroenteritis K52.9 and BMI 40.0-44.9, adult Z68.[address] [address] 10 May, 2018 Acute conjunctivitis of righ t eye, unspecified acute conjunctivitis type H10.31 ; Unspecified mood [affective] disorder F39 ; Generalized anxiety disorder F41.1 and BMI 40.0-44.9, adult Z68.[id number] [place] [address] May, [facility] [address] [facility] [id number] [address] [place] [address] Apr, Other specified abnormal fin dings of blood chemistry R79.89 [facility] [address] [facility] [id number] [address] [place] [address] Apr, Sore throat J02.9 ; Diarrhea , unspecified R19.7 and Vomiting, unspecified R11.10 [facility] [address] [facility] [id number] [address] [place] [address] Apr, Chronic fatigue R53.82 ; Rey sea R11.0 and Lyme disease A69.20 [place] [address] [place] [id number] [address] [place] [address] Apr, [place] [address] [address] Mar, Generalized anxiety disorder F41.1 ; Unspecified mood [affective] disorder F39 ; BMI 40.0-44.9, adult Z68.41 and Myalgia M79.1 [facility] [address] [place] [id number] [address] [place] [address] Feb, Elevated erythrocyte sedimen tation rate R70.0 [place] [address] [place] [id number] [address] [place] [address] Feb, Elevated erythrocyte sedimen tation rate R70.0 [facility] [address] [place] [id number] [address] [place] [address] Feb, Unprotected sexual intercour se Z72.51 ; Pain in left knee M25.562 and Pain in joints of right hand M25.541 [place] [address] [place] [id number] [address] [place] [address] Feb, Pain in left knee M25.562 an d Pain in joints of right hand M25.541 [place] [address] [place] [id number] [address] [place] [address] Feb, Unspecified mood [affective] disorder F39 ; Generalized anxiety disorder F41.1 ; Pain in joints of right hand M25.541 ; Pain in joints of left hand M25.542 ; Pain in right knee M25.561 ; Pain in left knee M25.562 and Morbid (severe) obesity due to excess calories E66.01 [facility] [address] [address] Jan, Sore throat J02.9 ; Strep th roat J02.0 ; BMI 40.0-44.9, adult Z68.41 ; Dysuria R30.0 and Acute cystitis with hematuria N30.01 [place] [address] [address] Jan, [place] [address] [address] December, Abnormal MRI of head R93.0 [place] [address] [address] December, Subcutaneous nodules R22.9 ; Syncope, unspecified syncope type R55 ; Abnormal MRI of head R93.0 and Iron deficiency anemia secondary to inadequate dietary iron intake D50.8 [place] [address] [place] [id number] [address] [place] [address] December, [place] [address] [address] December, Iron deficiency anemia secon chuck to inadequate dietary iron intake D50.8 and BMI 40.0-44.9, adult Z68.41 [facility] [address] [address] Nov, Gastroenteritis K52.9 [place] [address] [place] [id number] [address] [place] [address] Nov, [place] [address] [address] Nov, Bilateral hand swelling M79. 89 ; Amenorrhea N91.2 ; Desire for Z31.9 ; Amenorrhea, unspecified N91.2 ; Bilateral swelling of feet M79.89 ; Rash R21 and Iron deficiency anemia, unspecified iron deficiency anemia type D50.9 [place] [address] [address] Nov, Bilateral hand swelling M79. 89 ; Bilateral swelling of feet M79.89 and Rash R21 [place] [address] [address] Sep, Desire for Z31.9 a nd Amenorrhea N91.2 [facility] [place] [address] [address] Aug, Scabies B86 [place] [address] [address] Aug, Amenorrhea, unspecified N91. 2 [place] [address] [address] Aug, Amenorrhea, unspecified N91. 2 [place] [address] [address] Aug, Amenorrhea N91.2 and Iron de ficiency anemia, unspecified iron deficiency anemia type D50.9 [place] [address] [place] [id number] [address] [place] [address] Aug, Iron deficiency anemia secon chuck to inadequate dietary iron intake D50.8 ; Amenorrhea N91.2 ; Generalized anxiety disorder F41.1 ; Unspecified mood [affective] disorder F39 and Nausea R11.0 [facility] [address] [address] Jul, Non-intractable vomiting wit h nausea, unspecified vomiting type R11.2 and Pleurisy R09.1 [place] [address] [place] [address] Jul, [facility] [address] [facility] [id number] [address] [place] [address] Jun, Unspecified mood [affective] disorder F39 [facility] [address] [facility] [id number] [address] [place] [id number] 02 Jun, 2017 Unspecified mood [affective] disorder F39 and Generalized anxiety disorder F41.1 [facility] [address] [facility] [id number] [address] [place] [address] May, Bilious vomiting with nausea R11.14 [place] [address] [facility] [id number] [address] [place] [address] May, Unspecified mood [affective] disorder F39 ; Generalized anxiety disorder F41.1 and Iron deficiency anemia, unspecified iron deficiency anemia type D50.9 [place] [address] [facility] [id number] [address] [place] [address] Apr, Unspecified mood [affective] disorder F39 [place] [address] [facility] [id number] [address] [place] [address] Apr, Iron deficiency anemia, unsp ecified iron deficiency anemia type D50.9 [facility] [address] [facility] [id number] [address] [place] [address] Apr, Iron deficiency anemia, unsp ecified iron deficiency anemia type D50.9 [place] [address] [facility] [id number] [address] [place] [address] Apr, Unspecified mood [affective] disorder F39 [place] [address] [facility] [id number] [address] [place] [address] Apr, Abnormal CBC R79.89 [place] [address] [facility] [id number] [address] [place] [address] Apr, Abnormal CBC R79.89 [place] [address] [facility] [id number] [address] [place] [address] Apr, Encounter to establish care with new doctor Z76.89 ; Unspecified mood [affective] disorder F39 and Primary insomnia F51.01 [facility] [address] [facility] [id number] [address] [place] [address] Mar, Unspecified mood [affective] disorder F39 and Generalized anxiety disorder F41.1 [facility] [address] [facility] [id number] [address] [place] [address] Mar, Sore throat J02.9 and Strep pharyngitis J02.0 [facility] [address] [id number] [address] [place] [id number] Feb, Dental examination Z01.20 [facility] [address] [id number] [address] [place] [id number] Jan, Encounter for dental examina tion Z01.20 [facility] [address] [facility] [id number] [address] [place] [address] Nov, Fever, unspecified R50.9 and Acute nasopharyngitis J00 [facility] [address] [facility] [id number] [address] [place] [address] 18 Sep, 2015 Abdominal pain, acute, right upper quadrant 789.01 [facility] [address] [facility] [id number] [address] [place] [address] Sep, [facility] [address] [facility] [id number] [address] [place] [address] Aug, Irritable bowel syndrome wit h diarrhea K58.0 [facility] [address] [id number] [address] [place] [phone] Aug, Urinary tract infection, sit e not specified N39.0 and Back pain M54.9 [facility] [address] [facility] [id number] [address] [place] [address] Mar, Abdominal pain, acute, right upper quadrant 789.01 [facility] [address] [facility] [id number] [address] [place] [address] Mar, [facility] [address] [facility] [id number] [address] [place] [address] Mar, Nausea 787.02 and Abdominal pain, acute, right upper quadrant 789.01 [facility] [address] [facility] [id number] [address] [place] [address] Mar, Nausea 787.02 and Abdominal pain 789.00 [facility] [address] [place] [id number] [address] [place] [address] Mar, Nausea 787.02 [facility] [address] [place] [id number] [address] [place] [address] Jan, Amenorrhea 626.0 [facility] [address] [place] [id number] [address] [place] [address] Jan, Amenorrhea 626.0 and Obesity 278.00 [facility] [address] [place] [id number] [address] [place] [address] December, Amenorrhea 626.0 and Cough 7 86.2 [facility] [address] [place] [id number] [address] [place] [address] Nov, [facility] [address] [place] [id number] [address] [place] [address] Nov, [facility] [address] [place] [id number] [address] [place] [address] May, [facility] [address] [facility] [id number] [address] [place] [phone] May, [facility] [address] [facility] [id number] [address] [place] [phone] Mar, [facility] [address] [facility] [id number] [address] [place] [phone] Mar, [facility] [address] [place] [id number] [address] [place] [address] Mar, [facility] [address] [place] [id number] [address] [place] [address] Mar, [facility] [address] [id number] [address] [place] [address], [place] [address] Mar, [facility] [address] [id number] [address] [place] [address], [place] [address] Mar, [facility] [address] [id number] [address] [place] [address], [place] [address] Mar, [facility] [address] [id number] [address] [place] [address], [place] [address] Mar, [facility] [address] [id number] [address] [place] [address], [place] [address] Mar, [facility] [address] [id number] [address] [place] [address], [place] [address] Mar, [facility] [address] [id number] [address] [place] [address], [place] [address] Mar, [facility] [address] [id number] [address] [place] [address], [place] [address] Mar, [facility] [address] [id number] [address] [place] [address], [place] [address] Mar, [facility] [address] [id number] [address] [place] [address], [place] [address] Mar, [facility] [address] [id number] [address] [place] [address], [place] [address] Mar, [facility] [address] [id number] [address] [place] [address], [place] [address] Feb, [facility] [address] [id number] [address] [place] [address], [place] [address] Feb, [facility] [address] [id number] [address] [place] [address], [place] [address] Feb, [facility] [address] [id number] [address] [place] [address], [place] [address] Feb, [facility] [address] [id number] [facility] [place] [address] Feb, 2013 [facility] [address] [id number] [address] [place] [address], [place] [address] Feb, [facility] [address] [id number] [address] [place] [address], [place] [address] Feb, [facility] [address] [id number] [address] [place] [address], [place] [address] Feb, 2013 [facility] [address] [id number] [address] [place] [address], [place] [address] Feb, 2013 [facility] [address] [id number] [address] [place] [address], [place] [address] Feb, [facility] [address] [id number] [address] [place] [address], [place] [address] Feb, 2013 [facility] [address] [id number] [address] [place] [address], [place] [address] Feb, 2013 [facility] [address] [id number] [address] [place] [address], [place] [address] Feb, [facility] [address] [id number] [address] [place] [address], [place] [address] Feb, [facility] [address] [id number] [address] [place] [address], [place] [address] Feb, [facility] [address] [id number] [address] [place] [address], [place] [address] Jan, [facility] [address] [id number] [address] [place] [address], [place] [address] Jan, [facility] [address] [id number] [address] [place] [address], [place] [address] Jan, [facility] [address] [id number] [address] [place] [address], [place] [address] Jan, [facility] [address] [id number] [address] [place] [address], [place] [address] Jan, [facility] [address] [id number] [facility] [place] [address] Jan, [facility] [address] [id number] [facility] [place] [address] Jan, [facility] [address] [id number] [facility] [place] [address] Jan, [facility] [address] [id number] [address] [place] [address], [place] [address] Jan, [facility] [address] [id number] [address] [place] [address], [place] [address] Jan, [facility] [address] [id number] [address] [place] [address], [place] [address] Jan, [facility] [address] [id number] [address] [place] [address], [place] [address] Jan, [facility] [address] [id number] [address] [place] [address], [place] [address] Jan, [facility] [address] [id number] [address] [place] [address], [place] [address] December, [facility] [address] [id number] [address] [place] [address], [place] [address] December, [facility] [address] [id number] [address] [place] [address], [place] [address] December, [facility] [address] [id number] [address] [place] [address], [place] [address] December, [facility] [address] [id number] [address] [place] [address], [place] [address] December, [facility] [address] [id number] [address] [place] [address], [place] [address] December, [facility] [address] [id number] [address] [place] [address], [place] [address] December, [facility] [address] [id number] [address] [place] [address], [place] [address] December, [facility] [address] [id number] [facility] [place] [address] December, [facility] [address] [id number] [address] [place] [address], [place] [address] December, [facility] [address] [id number] [address] [place] [address], [place] [address] December, [facility] [address] [id number] [address] [place] [address], [place] [address] December, [facility] [address] [id number] [address] [place] [address], [place] [address] Nov, [facility] [address] [id number] [address] [place] [address], [place] [address] Nov, [facility] [address] [id number] [address] [place] [address], [place] [address] Oct, [facility] [address] [id number] [address] [place] [address], [place] [address] Oct, [facility] [address] [id number] [address] [place] [address], [place] [address] Oct, [facility] [address] [id number] [address] [place] [address], [place] [address] Oct, [facility] [address] [id number] [address] [place] [address], [place] [address] 19 Oct, 2013 [facility] [address] [id number] [address] [place] [address], [place] [address] 19 Oct, 2013 [facility] [address] [id number] [address] [place] [address], [place] [address] 19 Oct, 2013 [facility] [address] [id number] [address] [place] [address], [place] [address] 19 Oct, 2013 [facility] [address] [id number] [address] [place] [address], [place] [address] 18 Oct, 2013 [facility] [address] [id number] [address] [place] [address], [place] [address] 08 Oct, 2013 [facility] [address] [id number] [address] [place] [address], [place] [address] Oct, [facility] [address] [id number] [address] [place] [address], [place] [address] Oct, 2013 [facility] [address] [id number] [address] [place] [address], [place] [address] Oct, 2013 [facility] [address] [id number] [address] [place] [address], [place] [address] Oct, [facility] [address] [id number] [address] [place] [address], [place] [address] Oct, [facility] [address] [id number] [address] [place] [address], [place] [address] Oct, [facility] [address] [id number] [address] [place] [address], [place] [address] Oct, [facility] [address] [id number] [address] [place] [address], [place] [address] Sep, [facility] [address] [id number] [address] [place] [address], [place] [address] Sep, [facility] [address] [id number] [address] [place] [address], [place] [address] Sep, [facility] [address] [id number] [address] [place] [address], [place] [address] Jun, [facility] [address] [id number] [address] [place] [address], [place] [address] Jun, [facility] [address] [id number] [address] [place] [address], [place] [address] Jun, [facility] [address] [id number] [address] [place] [address], [place] [address] Jun, [facility] [address] [id number] [address] [place] [id number] Jun, [facility] [address] [id number] [address] [place] [address], [place] [address] Jun, [facility] [address] [id number] [address] [place] [phone] May, [facility] [address] [id number] [address] [place] [address], [place] [address] May, [facility] [address] [id number] [address] [place] [phone] May, [facility] [address] [id number] [address] [place] [address], [place] [address] May, [facility] [address] [id number] [address] [place] [address], [place] [address] May, [facility] [address] [id number] [address] [place] [phone] May, [facility] [address] [id number] [address] [place] [address], [place] [address] 26 Apr, 2013 [facility] [address] [id number] [address] [place] [address], [place] [address] 24 Apr, 2013 [facility] [address] [id number] [address] [place] [address], [place] [address] 23 Sep2012 [facility] [address] [id number] [address] [place] [phone] 20 Sep, 2012 [facility] [address] [id number] [address] [place] [id number] 19 Sep, 2012 [facility] [address] [id number] [address] [place] [address], [place] [address] 17 Sep, 2012 [facility] [address] [id number] [address] [place] [address], [place] [address] 13 Sep, 2012 [facility] [address] [id number] [address] [place] [address], [place] [address] 11 Sep, 2012 [facility] [address] [id number] [address] [place] [address], [place] [address] Apr, [facility] [address] [id number] [address] [place] [address], [place] [address] Apr, [facility] [address] [id number] [address] [place] [address], [place] [address] Mar, [facility] [address] [id number] [address] [place] [address], [place] [address] Nov, [facility] [address] [id number] [address] [place] [address], [place] [address] Oct, [facility] [address] [id number] [address] [place] [address], [place] [address] Oct, [facility] [address] [id number] [address] [place] [address], [place] [address] Sep, [facility] [address] [id number] [address] [place] [address], [place] [address] May, [facility] [address] [id number] [address] [place] [address], [place] [address] May, [facility] [address] [id number] [address] [place] [address], [place] [address] May, [facility] [address] [id number] [address] [place] [address], [place] [address] May, [facility] [address] [id number] [address] [place] [address], [place] [address] 24 Apr, 2012 [facility] [address] [id number] [address] [place] [address], [place] [address] Apr, [facility] [address] [id number] [address] [place] [address], [place] [address] Mar, [facility] [address] [id number] [address] [place] [address], [place] [address] Feb, [facility] [address] [id number] [address] [place] [address], [place] [id number] Jul, [facility] [address] [facility] [id number] [address] [place] [phone] Jul, [facility] [address] [facility] [id number] [address] [place] [phone] Jul, [facility] [address] [facility] [id number] [address] [place] [phone] December, [facility] [address] [facility] [id number] [address] [place] [id number] December, [facility] [address] [facility] [id number] [address] [place] [id number] Oct, IMMUNIZATIONS No Known Immunizations SOCIAL HISTORY Never Assessed REASON FOR VISIT RT eye pain and swelling since this morning. She states that it has been getting worse throughout the day. LARRY Moss PLAN OF CARE Activity Details Follow Up w/ PCP,prn Reason:if symptom s worsen or not improving VITAL SIGNS Height 68 in 2018-07-23 Weight 276.4 lbs 2018-07-23 Temperature 98.1 degrees Fahrenheit 2018-07-23 Heart Rate 79 bpm 2018-07-23 Respiratory Rate 18 2018-07-23 BMI 42.02 kg/m2 2018-07-23 Blood pressure systolic 114 mmHg 2018-07-23 Blood pressure diastolic 68 mmHg 2018-07-23 MEDICATIONS Medication Instructions Dosage Frequency Start Date End Date Duration S tatus Ofloxacin 0.3 % Ophthalmic Four times a day 1 drop into affected ey e 6h Jul, 7 day(s) Active Cetirizine HCl 10 MG Orally Once a day 1 tablet 24h 07 Jun, 2018 30 day(s) Active Tylenol 325 MG Orally every 4 hrs 1 tablet as needed 4h Active Abilify 15 MG Orally Once a day 1 tablet 24h Jun, 90 days Active Ibuprofen 400 MG Orally Three times a day 1 tablet with food or milk as needed 8h Active Womens One Daily - as directed A ctive RESULTS No Results PROCEDURES No Known procedures INSTRUCTIONS MEDICATIONS ADMINISTERED No Known Medications MEDICAL (GENERAL) HISTORY Type Description Date Medical History anemia Medical History asthma Surgical History section x2 Surgical History hernia repair Hospitalization History surgeries Hospitalization History possible gallbladder problems Hospitalization History ER visit for UTI 09/12/15 Hospitalization History dizziness, blackout 12/28/2017
--- OUTSIDE RECORDS SUMMARY | 2019-10-07 05:30 | XMS REPORT ---
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 Name Role Phone KUMAR HAY Unavailable PROBLEMS Type Condition ICD9-CM Code APR90-NW Code Onset Dates Condition S tatus SNOMED Code Problem Elevated erythrocyte sedimentation rate R70.0 Active 924429343 Problem Generalized anxiety disorder F41.1 A ctive 34366993 Problem Primary insomnia F51.01 Active 397 2004 Problem Morbid (severe) obesity due to excess calories E66 .01 Active 877426463 Problem Body mass index (BMI) of 40.0-44.9 in adult Z68.41 Active 322747874 Problem Sore throat J02.9 Active 85280236 3 Problem Chronic fatigue R53.82 Active 8422 9001 Problem Iron deficiency anemia secondary to inadequate d ietary iron intake D50.8 Active 002043682 Problem Unspecified mood [affective] disorder F39 Active 84315192 Problem Desire for Z31.9 Active 733818771 Problem Amenorrhea N91.2 Active 66396818 ALLERGIES Substance Reaction Event Type Date Status Lamotrigine rash Drug Allergy May, Active Abigail Unknown Drug Allergy May, Active ENCOUNTERS Encounter Location Date Diagnosis [facility] [address] [facility] [id number] [address] [place] [address] May, Acute conjunctivitis of righ t eye, unspecified acute conjunctivitis type H10.31 ; Unspecified mood [affective] disorder F39 ; Generalized anxiety disorder F41.1 and BMI 40.0-44.9, adult Z68.41 [facility] [address] [facility] [id number] [address] [place] [address] May, [facility] [address] [facility] [id number] [address] [place] [address] Apr, Other specified abnormal fin dings of blood chemistry R79.89 [facility] [address] [facility] [id number] [address] [place] [address] Apr, Sore throat J02.9 ; Diarrhea , unspecified R19.7 and Vomiting, unspecified R11.10 [facility] [address] [facility] [id number] [address] [place] [address] Apr, Chronic fatigue R53.82 ; Rey sea R11.0 and Lyme disease A69.20 [facility] [address] [facility] [id number] [address] [place] [address] Apr, [facility] [address] [facility] [id number] [address] [place] [address] Mar, Generalized anxiety disorder F41.1 ; Unspecified mood [affective] disorder F39 ; BMI 40.0-44.9, adult Z68.41 and Myalgia M79.1 [facility] [address] [facility] [id number] [address] [place] [address] Feb, Elevated erythrocyte sedimen tation rate R70.0 [place] [address] [facility] [id number] [address] [place] [address] Feb, Elevated erythrocyte sedimen tation rate R70.0 [facility] [address] [facility] [id number] [address] [place] [address] Feb, Unprotected sexual intercour se Z72.51 ; Pain in left knee M25.562 and Pain in joints of right hand M25.541 [facility] [address] [facility] [id number] [address] [place] [address] Feb, Pain in left knee M25.562 an d Pain in joints of right hand M25.541 [facility] [address] [facility] [id number] [address] [place] [address] Feb, Unspecified mood [affective] disorder F39 ; Generalized anxiety disorder F41.1 ; Pain in joints of right hand M25.541 ; Pain in joints of left hand M25.542 ; Pain in right knee M25.561 ; Pain in left knee M25.562 and Morbid (severe) obesity due to excess calories E66.01 [facility] [address] [address] Jan, Sore throat J02.9 ; Strep th roat J02.0 ; BMI 40.0-44.9, adult Z68.41 ; Dysuria R30.0 and Acute cystitis with hematuria N30.01 [place] [address] [address] Jan, [place] [address] [address] December, Abnormal MRI of head R93.0 [place] [address] [address] December, Subcutaneous nodules R22.9 ; Syncope, unspecified syncope type R55 ; Abnormal MRI of head R93.0 and Iron deficiency anemia secondary to inadequate dietary iron intake D50.8 [place] [address] [address] December, [place] [address] [address] December, Iron deficiency anemia secon chuck to inadequate dietary iron intake D50.8 and BMI 40.0-44.9, adult Z68.41 [facility] [address] [place] [id number] [address] [place] [address] Nov, Gastroenteritis K52.9 [place] [address] [address] Nov, [place] [address] [address] Nov, Bilateral hand swelling M79. 89 ; Amenorrhea N91.2 ; Desire for Z31.9 ; Amenorrhea, unspecified N91.2 ; Bilateral swelling of feet M79.89 ; Rash R21 and Iron deficiency anemia, unspecified iron deficiency anemia type D50.9 [place] [address] [address] Nov, Bilateral hand swelling M79. 89 ; Bilateral swelling of feet M79.89 and Rash R21 [place] [address] [address] Sep, Desire for Z31.9 a nd Amenorrhea N91.2 [place] [address] [address] Aug, Scabies B86 [place] [address] [address] Aug, Amenorrhea, unspecified N91. 2 [place] [address] [address] Aug, Amenorrhea, unspecified N91. 2 [place] [address] [address] Aug, Amenorrhea N91.2 and Iron de ficiency anemia, unspecified iron deficiency anemia type D50.9 [place] [address] [address] Aug, Iron deficiency anemia secon chuck to inadequate dietary iron intake D50.8 ; Amenorrhea N91.2 ; Generalized anxiety disorder F41.1 ; Unspecified mood [affective] disorder F39 and Nausea R11.0 [facility] [address] [place] [id number] [address] [place] [address] Jul, Non-intractable vomiting wit h nausea, unspecified vomiting type R11.2 and Pleurisy R09.1 [place] [address] [place] [id number] [address] [place] [address] Jul, [place] [address] [address] Jun, Unspecified mood [affective] disorder F39 [facility] [address] [facility] [id number] [address] [place] [address] Jun, Unspecified mood [affective] disorder F39 and Generalized anxiety disorder F41.1 [facility] [address] [facility] [id number] [address] [place] [address] 06 May, 2017 Bilious vomiting with nausea R11.14 [place] [address] [facility] [id number] [address] [place] [address] May, Unspecified mood [affective] disorder F39 ; Generalized anxiety disorder F41.1 and Iron deficiency anemia, unspecified iron deficiency anemia type D50.9 [place] [address] [facility] [id number] [address] [place] [address] Apr, Unspecified mood [affective] disorder F39 [place] [address] [facility] [id number] [address] [place] [address] Apr, Iron deficiency anemia, unsp ecified iron deficiency anemia type D50.9 [place] [id number] [facility] [id number] [address] [place] [address] Apr, Iron deficiency anemia, unsp ecified iron deficiency anemia type D50.9 [place] [address] [facility] [id number] [address] [place] [address] Apr, Unspecified mood [affective] disorder F39 [place] [address] [facility] [id number] [address] [place] [address] Apr, Abnormal CBC R79.89 [place] [address] [facility] [id number] [address] [place] [address] 07 Apr, 2017 Abnormal CBC R79.89 [place] [address] [place] [id number] [address] [place] [address] 05 Apr, 2017 Encounter to establish care with new doctor Z76.89 ; Unspecified mood [affective] disorder F39 and Primary insomnia F51.01 [place] [address] [facility] [id number] [address] [place] [address] Mar, Unspecified mood [affective] disorder F39 and Generalized anxiety disorder F41.1 [facility] [address] [id number] [address] [place] [address] Mar, Sore throat J02.9 and Strep pharyngitis J02.0 [facility] [address] [id number] [address] [place] [id number] Feb, Dental examination Z01.20 [facility] [address] [id number] [address] [place] [id number] Jan, Encounter for dental examina tion Z01.20 [facility] [address] [facility] [id number] [address] [place] [address] Nov, Fever, unspecified R50.9 and Acute nasopharyngitis J00 [facility] [address] [facility] [id number] [address] [place] [address] 18 Sep, 2015 Abdominal pain, acute, right upper quadrant 789.01 [facility] [address] [facility] [id number] [address] [place] [address] Sep, [facility] [address] [facility] [id number] [address] [place] [address] Aug, Irritable bowel syndrome wit h diarrhea K58.0 [facility] [address] [facility] [id number] [address] [place] [address] Aug, Urinary tract infection, sit e not specified N39.0 and Back pain M54.9 [facility] [address] [facility] [id number] [address] [place] [address] Mar, Abdominal pain, acute, right upper quadrant 789.01 [facility] [address] [facility] [id number] [address] [place] [address] Mar, [facility] [address] [facility] [id number] [address] [place] [address] Mar, Nausea 787.02 and Abdominal pain, acute, right upper quadrant 789.01 [facility] [address] [id number] [address] [place] [address] Mar, Nausea 787.02 and Abdominal pain 789.00 [facility] [address] [id number] [address] [place] [address] Mar, Nausea 787.02 [facility] [address] [facility] [id number] [address] [place] [address] Jan, Amenorrhea 626.0 [facility] [address] [id number] [address] [place] [address] Jan, Amenorrhea 626.0 and Obesity 278.00 [facility] [address] [id number] [address] [place] [address] December, Amenorrhea 626.0 and Cough 7 86.2 [facility] [address] [id number] [address] [place] [address] Nov, [facility] [address] [id number] [address] [place] [address] Nov, [facility] [address] [id number] [address] [place] [address] May, [facility] [address] [id number] [address] [place] [address] May, [facility] [address] [id number] [address] [place] [address] Mar, [facility] [address] [id number] [address] [place] [address] Mar, [facility] [address] [id number] [address] [place] [address] Mar, [facility] [address] [id number] [address] [place] [address] Mar, [facility] [address] [id number] [address] [place] [address] Mar, [facility] [address] [id number] [facility] [place] [address] Mar, [facility] [address] [id number] [address] [place] [address], [place] [address] Mar, [facility] [address] [id number] [address] [place] [address], [place] [address] Mar, [facility] [address] [id number] [address] [place] [address], [place] [address] Mar, [facility] [address] [id number] [address] [place] [address], [place] [address] Mar, [facility] [address] [id number] [address] [place] [address], [place] [address] Mar, [facility] [address] [id number] [address] [place] [address], [place] [address] Mar, [facility] [address] [id number] [address] [place] [address], [place] [address] Mar, [facility] [address] [id number] [address] [place] [address], [place] [address] Mar, [facility] [address] [id number] [address] [place] [address], [place] [address] Mar, [facility] [address] [id number] [address] [place] [address], [place] [address] Feb, [facility] [address] [id number] [address] [place] [address], [place] [address] Feb, [facility] [address] [id number] [address] [place] [address], [place] [address] Feb, [facility] [address] [id number] [address] [place] [address], [place] [address] Feb, [facility] [address] [id number] [address] [place] [address], [place] [address] Feb, [facility] [address] [id number] [address] [place] [address], [place] [address] Feb, [facility] [address] [id number] [address] [place] [address], [place] [address] Feb, 2013 [facility] [address] [id number] [address] [place] [address], [place] [address] Feb, 2013 [facility] [address] [id number] [address] [place] [address], [place] [address] Feb, 2013 [facility] [address] [id number] [address] [place] [address], [place] [address] Feb, 2013 [facility] [address] [id number] [address] [place] [address], [place] [address] Feb, 2013 [facility] [address] [id number] [address] [place] [address], [place] [address] Feb, 2013 [facility] [address] [id number] [address] [place] [address], [place] [address] Feb, 2013 [facility] [address] [id number] [address] [place] [address], [place] [address] Feb, 2013 [facility] [address] [id number] [address] [place] [address], [place] [address] Feb, [facility] [address] [id number] [address] [place] [address], [place] [address] Jan, [facility] [address] [id number] [address] [place] [address], [place] [address] Jan, [facility] [address] [id number] [address] [place] [address], [place] [address] Jan, [facility] [address] [id number] [address] [place] [address], [place] [address] Jan, [facility] [address] [id number] [address] [place] [address], [place] [address] Jan, [facility] [address] [id number] [address] [place] [address], [place] [address] Jan, [facility] [address] [id number] [address] [place] [address], [place] [address] Jan, [facility] [address] [id number] [facility] [place] [address] Jan, [facility] [address] [id number] [address] [place] [address], [place] [address] Jan, [facility] [address] [id number] [address] [place] [address], [place] [address] Jan, [facility] [address] [id number] [address] [place] [address], [place] [address] Jan, [facility] [address] [id number] [address] [place] [address], [place] [address] Jan, [facility] [address] [id number] [address] [place] [address], [place] [address] Jan, [facility] [address] [id number] [address] [place] [address], [place] [address] December, [facility] [address] [id number] [address] [place] [address], [place] [address] December, [facility] [address] [id number] [address] [place] [address], [place] [address] December, [facility] [address] [id number] [address] [place] [address], [place] [address] December, [facility] [address] [id number] [address] [place] [address], [place] [address] December, [facility] [address] [id number] [address] [place] [address], [place] [address] December, [facility] [address] [id number] [address] [place] [address], [place] [address] December, [facility] [address] [id number] [address] [place] [address], [place] [address] December, [facility] [address] [id number] [address] [place] [address], [place] [address] December, [facility] [address] [id number] [facility] [place] [address] 16 Dec, 2013 [facility] [address] [id number] [facility] [place] [address] December, [facility] [address] [id number] [address] [place] [address], [place] [address] December, [facility] [address] [id number] [address] [place] [address], [place] [address] Nov, [facility] [address] [id number] [address] [place] [address], [place] [address] 16 Nov, 2013 [facility] [address] [id number] [address] [place] [address], [place] [address] 22 Oct, 2013 [facility] [address] [id number] [address] [place] [address], [place] [address] Oct, [facility] [address] [id number] [address] [place] [address], [place] [address] 20 Oct, 2013 [facility] [address] [id number] [address] [place] [address], [place] [address] 20 Oct, 2013 [facility] [address] [id number] [address] [place] [address], [place] [address] 19 Oct, 2013 [facility] [address] [id number] [address] [place] [address], [place] [address] 19 Oct, 2013 [facility] [address] [id number] [address] [place] [address], [place] [address] 19 Oct, 2013 [facility] [address] [id number] [address] [place] [address], [place] [address] 19 Oct, 2013 [facility] [address] [id number] [address] [place] [address], [place] [address] 18 Oct, 2013 [facility] [address] [id number] [address] [place] [address], [place] [address] 08 Oct, 2013 [facility] [address] [id number] [address] [place] [address], [place] [address] Oct, [facility] [address] [id number] [facility] [place] [address] Oct, [facility] [address] [id number] [address] [place] [address], [place] [address] Oct, [facility] [address] [id number] [address] [place] [address], [place] [address] Oct, 2013 [facility] [address] [id number] [address] [place] [address], [place] [address] Oct, [facility] [address] [id number] [address] [place] [address], [place] [address] Oct, [facility] [address] [id number] [address] [place] [address], [place] [address] Oct, [facility] [address] [id number] [address] [place] [address], [place] [address] Sep, [facility] [address] [id number] [address] [place] [address], [place] [address] Sep, [facility] [address] [id number] [address] [place] [address], [place] [address] Sep, [facility] [address] [id number] [address] [place] [address], [place] [address] Jun, [facility] [address] [id number] [address] [place] [address], [place] [address] Jun, [facility] [address] [id number] [address] [place] [address], [place] [address] Jun, [facility] [address] [id number] [address] [place] [address], [place] [address] Jun, [facility] [address] [id number] [address] [place] [address], [place] [address] Jun, [facility] [address] [id number] [address] [place] [address], [place] [address] Jun, [facility] [address] [id number] [address] [place] [address], [place] [address] 24 May, 2013 [facility] [address] [id number] [address] [place] [address], [place] [address] 24 May, 2013 [facility] [address] [id number] [address] [place] [address], [place] [address] 22 May, 2013 [facility] [address] [id number] [address] [place] [address], [place] [address] 15 May, 2013 [facility] [address] [id number] [address] [place] [address], [place] [address] 15 May, 2013 [facility] [address] [id number] [address] [place] [address], [place] [address] May, [facility] [address] [id number] [address] [place] [address], [place] [address] 26 Sep, 2012 [facility] [address] [id number] [address] [place] [address], [place] [address] 24 Sep, 2012 [facility] [address] [id number] [address] [place] [address], [place] [address] 23 Sep, 2012 [facility] [address] [id number] [address] [place] [address], [place] [address] 20 Sep, 2012 [facility] [address] [id number] [address] [place] [address], [place] [address] 19 Sep, 2012 [facility] [address] [id number] [address] [place] [address], [place] [address] 17 Sep, 2012 [facility] [address] [id number] [address] [place] [address], [place] [address] 13 Sep, 2012 [facility] [address] [id number] [address] [place] [address], [place] [address] 11 Sep, 2012 [facility] [address] [id number] [address] [place] [address], [place] [address] 09 Sep, 2012 [facility] [address] [id number] [address] [place] [address], [place] [address] Apr, [facility] [address] [id number] [address] [place] [address], [place] [address] Mar, [facility] [address] [id number] [address] [place] [address], [place] [address] Nov, [facility] [address] [id number] [address] [place] [address], [place] [address] Oct, [facility] [facility] [address] [id number] [address] [place] [address], [place] [address] Oct, [facility] [address] [id number] [address] [place] [address], [place] [address] Sep, [facility] [address] [id number] [address] [place] [address], [place] [address] May, [facility] [address] [id number] [address] [place] [address], [place] [address] May, [facility] [address] [id number] [address] [place] [address], [place] [address] May, [facility] [address] [id number] [address] [place] [address], [place] [address] May, [facility] [address] [id number] [address] [place] [address], [place] [address] Apr, [facility] [address] [id number] [address] [place] [address], [place] [address] Apr, [facility] [address] [id number] [address] [place] [address], [place] [address] Mar, [facility] [address] [id number] [address] [place] [address], [place] [address] Feb, [facility] [address] [id number] [address] [place] [address], [place] [address] Jul, [facility] [address] [id number] [address] [place] [address], [place] [address] Jul, [facility] [address] [id number] [address] [place] [address] Jul, [facility] [address] [facility] [id number] [address] [place] [address] December, [facility] [address] [facility] [id number] [address] [place] [address] December, [facility] [address] [facility] [id number] [address] [place] [id number] Oct, IMMUNIZATIONS No Known Immunizations SOCIAL HISTORY Never Assessed REASON FOR VISIT pink eye, possible-milenaoden,RMA, pt having some her right eye discomfort, she wo ke up this morning with her right eye matted, she also want to discuss her medic ation tht she is taking PLAN OF CARE Activity Details Follow Up 6 Months Reason: VITAL SIGNS Height 68 in 2018-05-29 Weight 271.6 lbs 2018-05-29 Temperature 98.4 degrees Fahrenheit 2018-05-29 Heart Rate 66 bpm 2018-05-29 Respiratory Rate 18 2018-05-29 Oximetry on room air:100 % 2018-05-29 BMI 41.29 kg/m2 2018-05-29 Blood pressure systolic 120 mmHg 2018-05-29 Blood pressure diastolic 80 mmHg 2018-05-29 MEDICATIONS Medication Instructions Dosage Frequency Start Date End Date Duration S tatus Abilify 15 MG Orally Once a day 1 tablet 24h Jun, 90 days Active Ofloxacin 0.3 % Ophthalmic Four times a day 1 drop into affected ey e 6h May, May, 7 days Active Tylenol 325 MG Orally every 4 hrs 1 tablet as needed 4h Active Ibuprofen 400 MG Orally Three times a day 1 tablet with food or milk as needed 8h Active Propranolol HCl 10 mg Orally twice a day 1 tablet on an empty stoma ch 12h Mar, Active RESULTS No Results PROCEDURES No Known procedures INSTRUCTIONS MEDICATIONS ADMINISTERED No Known Medications MEDICAL (GENERAL) HISTORY Type Description Date Medical History anemia Medical History asthma Surgical History section x2 Surgical History hernia repair Hospitalization History surgeries Hospitalization History possible gallbladder problems Hospitalization History ER visit for UTI 09/12/15 Hospitalization History dizziness, blackout 12/28/2017
--- OUTSIDE RECORDS SUMMARY | 2019-10-07 05:30 | XMS REPORT ---
Author Author Jailene ADAMS Organization [facility] Address [address] [place] [address] Care Team Providers Care Vp Cardiovascular Service Line Name Role Phone JUAN LUIS GRACEDAVEWANDERCY Unavailable PROBLEMS Type Condition ICD9-CM Code [id number] Code Onset Dates Condition S tatus SNOMED Code Problem Elevated erythrocyte sedimentation rate R70.0 Active 814259652 Problem Generalized anxiety disorder F41.1 A ctive 42166752 Problem Primary insomnia F51.01 Active 397 2004 Problem Morbid (severe) obesity due to excess calories E66 .01 Active 978880131 Problem Body mass index (BMI) of 40.0-44.9 in adult Z68.41 Active 673299702 Problem Sore throat J02.9 Active 18043162 3 Problem Chronic fatigue R53.82 Active 8422 9001 Problem Iron deficiency anemia secondary to inadequate d ietary iron intake D50.8 Active 797554893 Problem Unspecified mood [affective] disorder F39 Active 95528946 Problem Desire for Z31.9 Active 361260285 Problem Amenorrhea N91.2 Active 08722446 ALLERGIES Substance Reaction Event Type Date Status Lamotrigine rash Drug Allergy Apr, Active Abigail Unknown Drug Allergy Apr, Active ENCOUNTERS Encounter Location Date Diagnosis [facility] [id number] [place] [address] Apr, Other specified abnormal fin dings of blood chemistry R79.89 [facility] [id number] [place] [address] Apr, Sore throat J02.9 ; Diarrhea , unspecified R19.7 and Vomiting, unspecified R11.10 [facility] [id number] [place] [address] Apr, Chronic fatigue R53.82 ; Rey sea R11.0 and Lyme disease A69.20 [facility] [id number] [place] [address] Apr, [place] [address] [address] Mar, Generalized anxiety disorder F41.1 ; Unspecified mood [affective] disorder F39 ; BMI 40.0-44.9, adult Z68.41 and Myalgia M79.1 [facility] [address] [address] Feb, Elevated erythrocyte sedimen tation rate R70.0 [place] [address] [address] Feb, Elevated erythrocyte sedimen tation rate R70.0 [place] [address] [address] Feb, Unprotected sexual intercour se Z72.51 ; Pain in left knee M25.562 and Pain in joints of right hand M25.541 [facility] [id number] [place] [address] Feb, Pain in left knee M25.562 an d Pain in joints of right hand M25.541 [place] [address] [address] Feb, Unspecified mood [affective] disorder F39 ; Generalized anxiety disorder F41.1 ; Pain in joints of right hand M25.541 ; Pain in joints of left hand M25.542 ; Pain in right knee M25.561 ; Pain in left knee M25.562 and Morbid (severe) obesity due to excess calories E66.01 [facility] [id number] [place] [address] Jan, Sore throat J02.9 ; Strep th roat J02.0 ; BMI 40.0-44.9, adult Z68.41 ; Dysuria R30.0 and Acute cystitis with hematuria N30.01 [place] [address] [facility] [id number] [address] [place] [address] Jan, [facility] [id number] [place] [address] December, Abnormal MRI of head R93.0 [place] [address] [address] December, Subcutaneous nodules R22.9 ; Syncope, unspecified syncope type R55 ; Abnormal MRI of head R93.0 and Iron deficiency anemia secondary to inadequate dietary iron intake D50.8 [place] [address] [facility] [id number] [place] [address] December, [place] [address] [id number] [place] [address] December, Iron deficiency anemia secon chuck to inadequate dietary iron intake D50.8 and BMI 40.0-44.9, adult Z68.41 [facility] [address] [facility] [id number] [address] [place] [address] Nov, Gastroenteritis K52.9 [place] [address] [address] Nov, [place] [address] [place] [id number] [place] [address] Nov, Bilateral hand swelling M79. 89 ; Amenorrhea N91.2 ; Desire for Z31.9 ; Amenorrhea, unspecified N91.2 ; Bilateral swelling of feet M79.89 ; Rash R21 and Iron deficiency anemia, unspecified iron deficiency anemia type D50.9 [facility] [id number] [place] [address] Nov, Bilateral hand swelling M79. 89 ; Bilateral swelling of feet M79.89 and Rash R21 [facility] [id number] [place] [address] Sep, Desire for Z31.9 a nd Amenorrhea N91.2 [facility] [address] [facility] [id number] [address] [place] [address] Aug, Scabies B86 [facility] [address] [facility] [id number] [address] [place] [address] Aug, Amenorrhea, unspecified N91. 2 [place] [address] [place] [id number] [place] [address] Aug, Amenorrhea, unspecified N91. 2 [place] [address] [place] [id number] [place] [address] Aug, Amenorrhea N91.2 and Iron de ficiency anemia, unspecified iron deficiency anemia type D50.9 [place] [address] [id number] [place] [address] Aug, Iron deficiency anemia secon chuck to inadequate dietary iron intake D50.8 ; Amenorrhea N91.2 ; Generalized anxiety disorder F41.1 ; Unspecified mood [affective] disorder F39 and Nausea R11.0 [facility] [id number] [place] [address] Jul, Non-intractable vomiting wit h nausea, unspecified vomiting type R11.2 and Pleurisy R09.1 [place] [address] [place] [id number] [place] [address] Jul, [place] [address] [place] [id number] [place] [address] Jun, Unspecified mood [affective] disorder F39 [place] [address] [place] [id number] [place] [address] 02 Jun, 2017 Unspecified mood [affective] disorder F39 and Generalized anxiety disorder F41.1 [facility] [id number] [place] [address] 06 May, 2017 Bilious vomiting with nausea R11.14 [place] [address] [place] [id number] [place] [address] May, Unspecified mood [affective] disorder F39 ; Generalized anxiety disorder F41.1 and Iron deficiency anemia, unspecified iron deficiency anemia type D50.9 [facility] [address] [facility] [id number] [address] [place] [address] Apr, Unspecified mood [affective] disorder F39 [facility] [address] [facility] [id number] [address] [place] [address] Apr, Iron deficiency anemia, unsp ecified iron deficiency anemia type D50.9 [facility] [address] [facility] [id number] [address] [place] [address] Apr, Iron deficiency anemia, unsp ecified iron deficiency anemia type D50.9 [facility] [address] [facility] [id number] [address] [place] [address] Apr, Unspecified mood [affective] disorder F39 [facility] [address] [facility] [id number] [address] [place] [address] Apr, Abnormal CBC R79.89 [facility] [address] [facility] [id number] [address] [place] [address] Apr, Abnormal CBC R79.89 [facility] [address] [facility] [id number] [address] [place] [address] 05 Apr, 2017 Encounter to establish care with new doctor Z76.89 ; Unspecified mood [affective] disorder F39 and Primary insomnia F51.01 [facility] [address] [facility] [id number] [address] [place] [address] Mar, Unspecified mood [affective] disorder F39 and Generalized anxiety disorder F41.1 [facility] [address] [facility] [id number] [address] [place] [address] Mar, Sore throat J02.9 and Strep pharyngitis J02.0 [facility] [address] [id number] [address] [place] [id number] Feb, Dental examination Z01.20 [facility] [address] [id number] [address] [place] [id number] Jan, Encounter for dental examina tion Z01.20 [facility] [id number] [place] [address] Nov, Fever, unspecified R50.9 and Acute nasopharyngitis J00 [facility] [id number] [place] [address] 18 Sep, 2015 Abdominal pain, acute, right upper quadrant 789.01 [facility] [address] [place] [address] Sep, [facility] [id number] [place] [address] Aug, Irritable bowel syndrome wit h diarrhea K58.0 [facility] [address] [place] [address] Aug, Urinary tract infection, sit e not specified N39.0 and Back pain M54.9 [facility] [id number] [place] [address] Mar, Abdominal pain, acute, right upper quadrant 789.01 [facility] [id number] [place] [address] Mar, [facility] [id number] [place] [address] Mar, Nausea 787.02 and Abdominal pain, acute, right upper quadrant 789.01 [facility] [id number] [place] [address] Mar, Nausea 787.02 and Abdominal pain 789.00 [facility] [id number] [place] [address] Mar, Nausea 787.02 [facility] [id number] [place] [address] Jan, Amenorrhea 626.[address] [facility] [address] [id number] [address] [place] [address] Jan, Amenorrhea 626.[address] [facility] [address] [id number] [address] [place] [address] December, Amenorrhea 626.0 and Cough [address] [facility] [address] [id number] [address] [place] [address] Nov, [facility] [address] [id number] [address] [place] [address], [place] [address] Nov, [facility] [address] [id number] [address] [place] [address], [place] [address] May, [facility] [address] [id number] [address] [place] [address] May, [facility] [address] [id number] [address] [place] [address], [place] [address] Mar, [facility] [address] [id number] [address] [place] [address] Mar, [facility] [address] [id number] [address] [place] [address], [place] [address] Mar, [facility] [address] [id number] [address] [place] [address] Mar, [facility] [address] [id number] [address] [place] [address], [place] [address] Mar, [facility] [address] [id number] [address] [place] [address] Mar, [facility] [address] [id number] [address] [place] [address], [place] [address] Mar, [facility] [address] [id number] [address] [place] [address], [place] [address] Mar, [facility] [address] [id number] [address] [place] [address] Mar, [facility] [address] [id number] [facility] [place] [address] Mar, [facility] [address] [id number] [address] [place] [address], [place] [address] Mar, [facility] [address] [id number] [address] [place] [address], [place] [address] Mar, [facility] [address] [id number] [address] [place] [address], [place] [address] Mar, [facility] [address] [id number] [address] [place] [address], [place] [address] Mar, [facility] [address] [id number] [address] [place] [address], [place] [address] Mar, [facility] [address] [id number] [address] [place] [address], [place] [address] Feb, [facility] [address] [id number] [address] [place] [address], [place] [address] Feb, [facility] [address] [id number] [address] [place] [address], [place] [address] Feb, [facility] [address] [id number] [address] [place] [address], [place] [address] Feb, [facility] [address] [id number] [address] [place] [address], [place] [address] Feb, [facility] [address] [id number] [address] [place] [address], [place] [address] Feb, [facility] [address] [id number] [address] [place] [address], [place] [address] Feb, [facility] [address] [id number] [address] [place] [address], [place] [address] Feb, [facility] [address] [id number] [address] [place] [address], [place] [address] Feb, [facility] [address] [id number] [address] [place] [address], [place] [address] Feb, 2013 [facility] [address] [id number] [facility] [place] [address] Feb, 2013 [facility] [address] [id number] [address] [place] [address], [place] [address] Feb, 2013 [facility] [address] [id number] [address] [place] [address], [place] [address] Feb, 2013 [facility] [address] [id number] [address] [place] [address], [place] [address] Feb, 2013 [facility] [address] [id number] [address] [place] [address], [place] [address] Feb, 2013 [facility] [address] [id number] [address] [place] [address], [place] [address] Jan, [facility] [address] [id number] [address] [place] [address], [place] [address] Jan, [facility] [address] [id number] [address] [place] [address], [place] [address] Jan, [facility] [address] [id number] [address] [place] [address], [place] [address] Jan, [facility] [address] [id number] [address] [place] [address], [place] [address] Jan, [facility] [address] [id number] [address] [place] [address], [place] [address] Jan, [facility] [address] [id number] [address] [place] [address], [place] [address] Jan, [facility] [address] [id number] [address] [place] [address], [place] [address] Jan, [facility] [address] [id number] [address] [place] [address], [place] [address] Jan, [facility] [address] [id number] [address] [place] [address], [place] [address] Jan, [facility] [address] [id number] [facility] [place] [address] Jan, [facility] [address] [id number] [facility] [place] [address] Jan, [facility] [address] [id number] [address] [place] [address], [place] [address] Jan, [facility] [address] [id number] [address] [place] [address], [place] [address] December, [facility] [address] [id number] [address] [place] [address], [place] [address] December, [facility] [address] [id number] [address] [place] [address], [place] [address] December, [facility] [address] [id number] [address] [place] [address], [place] [address] December, [facility] [address] [id number] [address] [place] [address], [place] [address] December, [facility] [address] [id number] [address] [place] [address], [place] [address] December, [facility] [address] [id number] [address] [place] [address], [place] [address] December, [facility] [address] [id number] [address] [place] [address], [place] [address] December, [facility] [address] [id number] [address] [place] [address], [place] [address] December, [facility] [address] [id number] [address] [place] [address], [place] [address] December, [facility] [address] [id number] [address] [place] [address], [place] [address] December, [facility] [address] [id number] [address] [place] [address], [place] [address] December, [facility] [address] [id number] [address] [place] [address], [place] [address] 16 Nov, 2013 [facility] [address] [id number] [facility] [place] [address] 16 Nov, 2013 [facility] [address] [id number] [address] [place] [address], [place] [address] 22 Oct, 2013 [facility] [address] [id number] [facility] [place] [address] 21 Oct, 2013 [facility] [address] [id number] [address] [place] [address], [place] [address] 20 Oct, 2013 [facility] [address] [id number] [address] [place] [address], [place] [address] 20 Oct, 2013 [facility] [address] [id number] [address] [place] [address], [place] [address] 19 Oct, 2013 [facility] [address] [id number] [address] [place] [address], [place] [address] 19 Oct, 2013 [facility] [address] [id number] [address] [place] [address], [place] [address] 19 Oct, 2013 [facility] [address] [id number] [address] [place] [address], [place] [address] 19 Oct, 2013 [facility] [address] [id number] [address] [place] [address], [place] [address] 18 Oct, 2013 [facility] [address] [id number] [address] [place] [address], [place] [address] 08 Oct, 2013 [facility] [address] [id number] [address] [place] [address], [place] [address] 07 Oct, 2013 [facility] [address] [id number] [address] [place] [address], [place] [address] 06 Oct, 2013 [facility] [address] [id number] [address] [place] [address], [place] [address] 06 Oct, 2013 [facility] [address] [id number] [address] [place] [address], [place] [address] 05 Oct, 2013 [facility] [address] [id number] [address] [place] [address], [place] [address] Oct, [facility] [address] [id number] [address] [place] [address], [place] [address] Oct, [facility] [address] [id number] [address] [place] [address], [place] [address] Oct, [facility] [address] [id number] [address] [place] [address], [place] [address] Sep, [facility] [address] [id number] [address] [place] [address], [place] [address] Sep, [facility] [address] [id number] [address] [place] [address], [place] [address] Sep, [facility] [address] [id number] [address] [place] [address], [place] [address] Jun, [facility] [address] [id number] [address] [place] [address], [place] [address] Jun, [facility] [address] [id number] [address] [place] [address], [place] [address] Jun, [facility] [address] [id number] [address] [place] [address], [place] [address] Jun, [facility] [address] [id number] [address] [place] [address], [place] [address] Jun, [facility] [address] [id number] [address] [place] [address], [place] [address] Jun, [facility] [address] [id number] [address] [place] [address], [place] [address] May, [facility] [address] [id number] [address] [place] [address], [place] [address] May, [facility] [address] [id number] [address] [place] [address], [place] [address] May, [facility] [address] [id number] [address] [place] [address], [place] [address] 15 May, 2013 [facility] [address] [id number] [address] [place] [address], [place] [address] 15 May, 2013 [facility] [address] [id number] [address] [place] [address], [place] [address] May, [facility] [address] [id number] [address] [place] [address], [place] [address] 26 Apr, 2013 [facility] [address] [id number] [address] [place] [address], [place] [address] 24 Apr, 2013 [facility] [address] [id number] [address] [place] [address], [place] [address] 23 Apr, 2013 [facility] [address] [id number] [address] [place] [address], [place] [address] 20 Apr, 2013 [facility] [address] [id number] [address] [place] [address], [place] [address] 19 Apr, 2013 [facility] [address] [id number] [address] [place] [address], [place] [address] 17 Apr, 2013 [facility] [address] [id number] [address] [place] [address], [place] [address] 13 Apr, 2013 [facility] [address] [id number] [address] [place] [address], [place] [address] 11 Apr, 2013 [facility] [address] [id number] [address] [place] [address], [place] [address] 09 Apr, 2013 [facility] [address] [id number] [address] [place] [address], [place] [address] 05 Apr, 2013 [facility] [address] [id number] [address] [place] [address], [place] [address] Mar, [facility] [address] [id number] [address] [place] [address], [place] [address] Nov, [facility] [address] [id number] [address] [place] [address], [place] [address] Oct, [facility] [address] [id number] [address] [place] [address] [place] [address] Oct, [facility] [address] [id number] [address] [place] [address] [place] [address] Sep, [facility] [address] [id number] [address] [place] [id number] May, [facility] [address] [id number] [address] [place] [id number] May, [facility] [address] [id number] [address] [place] [address], [place] [address] May, [facility] [address] [id number] [address] [place] [address], [place] [address] May, [facility] [address] [id number] [address] [place] [address], [place] [address] [address], [address] [facility] [address] [id number] [address] [place] [id number] Apr, [facility] [address] [id number] [address] [place] [id number] Mar, [facility] [address] [id number] [address] [place] [id number] Feb, [facility] [address] [id number] [address] [place] [id number] Jul, [facility] [address] [id number] [address] [place] [id number] Jul, [facility] [address] [id number] [address] [place] [id number] Jul, [facility] [address] [id number] [address] [place] [id number] December, [facility] [address] [id number] [address] [place] [id number] December, [facility] [address] [id number] [address] [place] [id number] Oct, IMMUNIZATIONS No Known Immunizations SOCIAL HISTORY Never Assessed REASON FOR VISIT vomiting/nausea/sore throat since 05/12/18, face is swollen, and nasal congested . Cshepheroumar JUAREZ, strep test negative PLAN OF CARE Activity Details Follow Up prn Reason: VITAL SIGNS Height 68 in 2018-05-14 Weight 270.2 lbs 2018-05-14 Temperature 98.8 degrees Fahrenheit 2018-05-14 Heart Rate 90 bpm 2018-05-14 Respiratory Rate 20 2018-05-14 BMI 41.08 kg/m2 2018-05-14 Blood pressure systolic 100 mmHg 2018-05-14 Blood pressure diastolic 60 mmHg 2018-05-14 MEDICATIONS Medication Instructions Dosage Frequency Start Date End Date Duration S tatus Propranolol HCl 10 mg Orally twice a day 1 tablet on an empty stoma ch 12h Mar, 30 day(s) Active Ibuprofen 400 MG Orally Three times a day 1 tablet with food or milk as needed 8h Active Tylenol 325 MG Orally every 4 hrs 1 tablet as needed 4h Active Abilify 10 mg Orally Once a day 1 tablet 24h 14 Jun, 2017 90 days Active RESULTS Name Result Date Reference Range STREP A (IN HOUSE) STREP A neg Control + Lot # [id number] Exp date 01-17-2019 PROCEDURES Procedure Date Ordered Result Body Site STREP A ASSAY W/OPTIC May 14, 2018 INSTRUCTIONS MEDICATIONS ADMINISTERED No Known Medications MEDICAL (GENERAL) HISTORY Type Description Date Medical History anemia Medical History asthma Surgical History section x2 Surgical History hernia repair Hospitalization History surgeries Hospitalization History possible gallbladder problems Hospitalization History ER visit for UTI 09/12/15 Hospitalization History dizziness, blackout 12/28/2017
--- OUTSIDE RECORDS SUMMARY | 2019-10-07 05:31 | XMS REPORT ---
Author Author Jailene ALVES Organization [facility] Address [address] [place] [address] Care Team Providers Care Medical Science Liaison Name Role Phone ALVESWAN EubanksELE Unavailable PROBLEMS Type Condition ICD9-CM Code [id number] Code Onset Dates Condition S tatus SNOMED Code Problem Elevated erythrocyte sedimentation rate R70.0 Active 329394966 Problem Generalized anxiety disorder F41.1 A ctive 73601270 Problem Primary insomnia F51.01 Active 397 2004 Problem Morbid (severe) obesity due to excess calories E66 .01 Active 102267407 Problem Body mass index (BMI) of 40.0-44.9 in adult Z68.41 Active 684289561 Problem Sore throat J02.9 Active 87986365 3 Problem Chronic fatigue R53.82 Active 8422 9001 Problem Iron deficiency anemia secondary to inadequate d ietary iron intake D50.8 Active 855323540 Problem Unspecified mood [affective] disorder F39 Active 25663681 Problem Desire for Z31.9 Active 753389906 Problem Amenorrhea N91.2 Active 94555747 ALLERGIES No Information ENCOUNTERS Encounter Location Date Diagnosis [facility] [address] [id number] [address] [place] [address] 27 Apr, 2018 Other specified abnormal fin dings of blood chemistry R79.89 [facility] [address] [id number] [address] [place] [address] Apr, Sore throat J02.9 ; Diarrhea , unspecified R19.7 and Vomiting, unspecified R11.10 [facility] [id number] [address] [place] [address] Apr, Chronic fatigue R53.82 ; Rey sea R11.0 and Lyme disease A69.20 [facility] [address] [id number] [place] [address] Apr, [place] [id number] [facility] [id number] [address] [place] [address] Mar, Generalized anxiety disorder F41.1 ; Unspecified mood [affective] disorder F39 ; BMI 40.0-44.9, adult Z68.41 and Myalgia M79.1 [facility] [address] [facility] [id number] [address] [place] [address] Feb, Elevated erythrocyte sedimen tation rate R70.0 [place] [address] [facility] [id number] [address] [place] [address] Feb, Elevated erythrocyte sedimen tation rate R70.0 [place] [address] [place] [id number] [address] [place] [address] Feb, Unprotected sexual intercour se Z72.51 ; Pain in left knee M25.562 and Pain in joints of right hand M25.541 [place] [id number] [place] [id number] [address] [place] [address] Feb, Pain in left knee M25.562 an d Pain in joints of right hand M25.541 [place] [address] [place] [id number] [address] [place] [address] Feb, Unspecified mood [affective] disorder F39 ; Generalized anxiety disorder F41.1 ; Pain in joints of right hand M25.541 ; Pain in joints of left hand M25.542 ; Pain in right knee M25.561 ; Pain in left knee M25.562 and Morbid (severe) obesity due to excess calories E66.01 [facility] [address] [facility] [id number] [address] [place] [address] Jan, Sore throat J02.9 ; Strep th roat J02.0 ; BMI 40.0-44.9, adult Z68.41 ; Dysuria R30.0 and Acute cystitis with hematuria N30.01 [facility] [address] [id number] [address] [place] [address] Jan, [place] [address] [place] [id number] [place] [address] December, Abnormal MRI of head R93.0 [place] [address] [address] December, Subcutaneous nodules R22.9 ; Syncope, unspecified syncope type R55 ; Abnormal MRI of head R93.0 and Iron deficiency anemia secondary to inadequate dietary iron intake D50.8 [place] [address] [address] December, [place] [address] [address] December, Iron deficiency anemia secon chuck to inadequate dietary iron intake D50.8 and BMI 40.0-44.9, adult Z68.41 [place] [address] [address] Nov, Gastroenteritis K52.9 [place] [address] [place] [id number] [place] [address] Nov, [place] [address] [address] Nov, Bilateral hand swelling M79. 89 ; Amenorrhea N91.2 ; Desire for Z31.9 ; Amenorrhea, unspecified N91.2 ; Bilateral swelling of feet M79.89 ; Rash R21 and Iron deficiency anemia, unspecified iron deficiency anemia type D50.9 [place] [address] [place] [id number] [address] [place] [address] Nov, Bilateral hand swelling M79. 89 ; Bilateral swelling of feet M79.89 and Rash R21 [place] [address] [place] [id number] [place] [address] Sep, Desire for Z31.9 a nd Amenorrhea N91.2 [facility] [place] [id number] [address] Aug, Scabies B86 [facility] [address] [id number] [address] [place] [address] Aug, Amenorrhea, unspecified N91. 2 [facility] [address] [id number] [address] [place] [address] Aug, Amenorrhea, unspecified N91. 2 [place] [address] [place] [id number] [place] [address] Aug, Amenorrhea N91.2 and Iron de ficiency anemia, unspecified iron deficiency anemia type D50.9 [place] [address] [address] Aug, Iron deficiency anemia secon chuck to inadequate dietary iron intake D50.8 ; Amenorrhea N91.2 ; Generalized anxiety disorder F41.1 ; Unspecified mood [affective] disorder F39 and Nausea R11.0 [facility] [address] [id number] [address] [place] [address] Jul, Non-intractable vomiting wit h nausea, unspecified vomiting type R11.2 and Pleurisy R09.1 [place] [address] [place] [id number] [place] [address] Jul, [place] [address] [place] [id number] [address] [place] [address] Jun, Unspecified mood [affective] disorder F39 [place] [address] [place] [id number] [place] [address] 02 Jun, 2017 Unspecified mood [affective] disorder F39 and Generalized anxiety disorder F41.1 [facility] [address] [id number] [address] [place] [address] 06 May, 2017 Bilious vomiting with nausea R11.14 [facility] [address] [place] [id number] [address] [place] [address] 03 May, 2017 Unspecified mood [affective] disorder F39 ; Generalized anxiety disorder F41.1 and Iron deficiency anemia, unspecified iron deficiency anemia type D50.9 [facility] [address] [facility] [id number] [address] [place] [address] Apr, Unspecified mood [affective] disorder F39 [facility] [address] [id number] [address] [place] [address] Apr, Iron deficiency anemia, unsp ecified iron deficiency anemia type D50.9 [facility] [address] [id number] [address] [place] [address] Apr, Iron deficiency anemia, unsp ecified iron deficiency anemia type D50.9 [facility] [address] [facility] [id number] [address] [place] [address] 18 Apr, 2017 Unspecified mood [affective] disorder F39 [facility] [address] [facility] [id number] [address] [place] [address] Apr, Abnormal CBC R79.89 [facility] [address] [facility] [id number] [address] [place] [address] Apr, Abnormal CBC R79.89 [facility] [address] [facility] [id number] [address] [place] [address] 05 Apr, 2017 Encounter to establish care with new doctor Z76.89 ; Unspecified mood [affective] disorder F39 and Primary insomnia F51.01 [facility] [address] [facility] [id number] [address] [place] [address] Mar, Unspecified mood [affective] disorder F39 and Generalized anxiety disorder F41.1 [facility] [address] [facility] [id number] [address] [place] [address] Mar, Sore throat J02.9 and Strep pharyngitis J02.0 [facility] [address] [id number] [address] [place] [id number] Feb, Dental examination Z01.20 [facility] [address] [id number] [address] [place] [address] [id number] Jan, Encounter for dental examina tion Z01.20 [facility] [address] [id number] [address] [place] [address] 11 Nov, 2016 Fever, unspecified R50.9 and Acute nasopharyngitis J00 [facility] [address] [facility] [id number] [address] [place] [address] 18 Sep, 2015 Abdominal pain, acute, right upper quadrant 789.01 [place] [address] [address] 10 Sep, 2015 [place] [address] [place] [id number] [place] [address] Aug, Irritable bowel syndrome wit h diarrhea K58.0 [place] [address] [place] [id number] [place] [address] Aug, Urinary tract infection, sit e not specified N39.0 and Back pain M54.9 [place] [address] [place] [id number] [place] [address] Mar, Abdominal pain, acute, right upper quadrant 789.01 [place] [address] [address] Mar, [place] [address] [place] [id number] [address] [place] [address] Mar, Nausea 787.02 and Abdominal pain, acute, right upper quadrant 789.01 [place] [address] [place] [id number] [address] [place] [address] Mar, Nausea 787.02 and Abdominal pain 789.00 [place] [address] [place] [id number] [address] [place] [address] Mar, Nausea 787.02 [place] [address] [place] [id number] [place] [address] Jan, Amenorrhea 626.0 [place] [address] [address] Jan, Amenorrhea 626.0 and Obesity 278.00 [facility] [address] [id number] [address] [place] [address], [place] [address] December, Amenorrhea 626.0 and Cough 7 86.2 [facility] [address] [id number] [address] [place] [address], [place] [address] Nov, [facility] [address] [id number] [address] [place] [address], [place] [address] Nov, [facility] [address] [id number] [address] [place] [address], [place] [address] May, [facility] [address] [id number] [address] [place] [address], [place] [address] May, [facility] [address] [id number] [address] [place] [address], [place] [address] Mar, [facility] [address] [id number] [address] [place] [address], [place] [address] Mar, [facility] [address] [id number] [address] [place] [address], [place] [address] Mar, [facility] [address] [id number] [address] [place] [address], [place] [address] Mar, [facility] [address] [id number] [address] [place] [address], [place] [address] Mar, [facility] [address] [id number] [address] [place] [address], [place] [address] Mar, [facility] [address] [id number] [address] [place] [address], [place] [address] Mar, [facility] [address] [id number] [address] [place] [address], [place] [address] Mar, [facility] [address] [id number] [address] [place] [address], [place] [address] Mar, [facility] [address] [id number] [address] [place] [address], [place] [address] Mar, [facility] [address] [id number] [facility] [place] [address] Mar, [facility] [address] [id number] [address] [place] [address], [place] [address] Mar, [facility] [address] [id number] [facility] [place] [address] Mar, [facility] [address] [id number] [address] [place] [address], [place] [address] Mar, [facility] [address] [id number] [address] [place] [address], [place] [address] Mar, [facility] [address] [id number] [address] [place] [address], [place] [address] Feb, [facility] [address] [id number] [address] [place] [address], [place] [address] Feb, [facility] [address] [id number] [address] [place] [address], [place] [address] Feb, [facility] [address] [id number] [address] [place] [address], [place] [address] Feb, [facility] [address] [id number] [address] [place] [address], [place] [address] Feb, [facility] [address] [id number] [address] [place] [address], [place] [address] Feb, [facility] [address] [id number] [address] [place] [address], [place] [address] Feb, [facility] [address] [id number] [address] [place] [address], [place] [address] Feb, [facility] [address] [id number] [address] [place] [address], [place] [address] Feb, [facility] [address] [id number] [address] [place] [address], [place] [address] Feb, [facility] [address] [id number] [facility] [place] [address] Feb, 2013 [facility] [address] [id number] [address] [place] [address], [place] [address] Feb, 2013 [facility] [address] [id number] [facility] [place] [address] Feb, 2013 [facility] [address] [id number] [address] [place] [address], [place] [address] Feb, 2013 [facility] [address] [id number] [address] [place] [address], [place] [address] Feb, 2013 [facility] [address] [id number] [address] [place] [address], [place] [address] Jan, [facility] [address] [id number] [address] [place] [address], [place] [address] Jan, [facility] [address] [id number] [address] [place] [address], [place] [address] Jan, [facility] [address] [id number] [address] [place] [address], [place] [address] Jan, [facility] [address] [id number] [address] [place] [address], [place] [address] Jan, [facility] [address] [id number] [address] [place] [address], [place] [address] Jan, [facility] [address] [id number] [address] [place] [address], [place] [address] Jan, [facility] [address] [id number] [address] [place] [address], [place] [address] Jan, [facility] [address] [id number] [address] [place] [address], [place] [address] Jan, [facility] [address] [id number] [address] [place] [address], [place] [address] Jan, [facility] [address] [id number] [address] [place] [address], [place] [address] 06 Jan, 2014 [facility] [address] [id number] [facility] [place] [address] Jan, [facility] [address] [id number] [address] [place] [address], [place] [address] Jan, [facility] [address] [id number] [address] [place] [address], [place] [address] December, [facility] [address] [id number] [address] [place] [address], [place] [address] December, [facility] [address] [id number] [address] [place] [address], [place] [address] December, [facility] [address] [id number] [address] [place] [address], [place] [address] December, [facility] [address] [id number] [address] [place] [address], [place] [address] December, [facility] [address] [id number] [address] [place] [address], [place] [address] December, [facility] [address] [id number] [address] [place] [address], [place] [address] December, [facility] [address] [id number] [address] [place] [address], [place] [address] December, [facility] [address] [id number] [address] [place] [address], [place] [address] December, [facility] [address] [id number] [address] [place] [address], [place] [address] December, [facility] [address] [id number] [address] [place] [address], [place] [address] December, [facility] [address] [id number] [address] [place] [address], [place] [address] December, [facility] [address] [id number] [address] [place] [address], [place] [address] Nov, [facility] [address] [id number] [address] [place] [address], [place] [address] 16 Nov, 2013 [facility] [address] [id number] [facility] [place] [address] 22 Oct, 2013 [facility] [address] [id number] [address] [place] [address], [place] [address] 21 Oct, 2013 [facility] [address] [id number] [address] [place] [address], [place] [address] 20 Oct, 2013 [facility] [address] [id number] [address] [place] [address], [place] [address] 20 Oct, 2013 [facility] [address] [id number] [address] [place] [address], [place] [address] 19 Oct, 2013 [facility] [address] [id number] [address] [place] [address], [place] [address] 19 Oct, 2013 [facility] [address] [id number] [address] [place] [address], [place] [address] 19 Oct, 2013 [facility] [address] [id number] [address] [place] [address], [place] [address] 19 Oct, 2013 [facility] [address] [id number] [address] [place] [address], [place] [address] 18 Oct, 2013 [facility] [address] [id number] [address] [place] [address], [place] [address] 08 Oct, 2013 [facility] [address] [id number] [address] [place] [address], [place] [address] 07 Oct, 2013 [facility] [address] [id number] [address] [place] [address], [place] [address] 06 Oct, 2013 [facility] [address] [id number] [address] [place] [address], [place] [address] 06 Oct, 2013 [facility] [address] [id number] [address] [place] [address], [place] [address] 05 Oct, 2013 [facility] [address] [id number] [address] [place] [address], [place] [address] 05 Oct, 2013 [facility] [address] [id number] [address] [place] [address], [place] [address] Oct, [facility] [address] [id number] [address] [place] [address], [place] [address] Oct, [facility] [address] [id number] [address] [place] [address], [place] [address] Sep, [facility] [address] [id number] [address] [place] [address], [place] [address] Sep, [facility] [address] [id number] [address] [place] [address], [place] [address] Sep, [facility] [address] [id number] [address] [place] [address], [place] [address] Jun, [facility] [address] [id number] [address] [place] [address], [place] [address] Jun, [facility] [address] [id number] [address] [place] [address], [place] [address] Jun, [facility] [address] [id number] [address] [place] [address], [place] [address] Jun, [facility] [address] [id number] [address] [place] [address], [place] [address] Jun, [facility] [address] [id number] [address] [place] [address], [place] [address] Jun, [facility] [address] [id number] [address] [place] [address], [place] [address] May, [facility] [address] [id number] [address] [place] [address], [place] [address] May, [facility] [address] [id number] [address] [place] [address], [place] [address] May, [facility] [address] [id number] [address] [place] [address], [place] [address] May, [facility] [address] [id number] [address] [place] [address], [place] [address] May, [facility] [address] [id number] [address] [place] [address], [place] [address] May, [facility] [address] [id number] [address] [place] [address], [place] [address] 26 Apr, 2013 [facility] [address] [id number] [address] [place] [address], [place] [address] 24 Apr, 2013 [facility] [address] [id number] [address] [place] [address], [place] [address] 23 Apr, 2013 [facility] [address] [id number] [address] [place] [address], [place] [address] 20 Apr, 2013 [facility] [address] [id number] [address] [place] [address], [place] [address] 19 Apr, 2013 [facility] [address] [id number] [address] [place] [address], [place] [address] 17 Apr, 2013 [facility] [address] [id number] [address] [place] [address], [place] [address] 13 Apr, 2013 [facility] [address] [id number] [address] [place] [address], [place] [address] 11 Apr, 2013 [facility] [address] [id number] [address] [place] [address], [place] [address] 09 Apr, 2013 [facility] [address] [id number] [address] [place] [address], [place] [address] 05 Apr, 2013 [facility] [address] [id number] [address] [place] [address], [place] [address] Mar, [facility] [address] [id number] [address] [place] [address], [place] [address] Nov, [facility] [address] [id number] [address] [place] [address], [place] [address] 28 Oct, 2012 [facility] [address] [id number] [address] [place] [address], [place] [address] Oct, [facility] [address] [id number] [address] [place] [id number] Sep, [facility] [address] [id number] [address] [place] [address] May, [facility] [address] [id number] [address] [place] [address] May, [facility] [address] [id number] [address] [place] [address] May, [facility] [address] [id number] [address] [place] [id number] May, [facility] [address] [id number] [address] [place] [id number] Apr, [facility] [address] [address] [id number] [address] [place] [id number] Apr, [facility] [address] [id number] [address] [place] [id number] Mar, [facility] [address] [id number] [address] [place] [phone] Feb, [facility] [address] [id number] [address] [place] [phone] Jul, [facility] [address] [id number] [address] [place] [id number] Jul, [facility] [address] [id number] [address] [place] [id number] Jul, [facility] [address] [id number] [address] [place] [id number] December, [facility] [address] [id number] [address] [place] [id number] December, [facility] [address] [id number] [address] [place] [id number] Oct, IMMUNIZATIONS No Known Immunizations SOCIAL HISTORY [...]
--- OUTSIDE RECORDS SUMMARY | 2019-10-07 05:31 | XMS REPORT ---
Author Author Jailene ALVES Organization [facility] Address [address] [place] [address] Care Team Providers Care Apns Name Role Phone ALVESDARYL Eubanks Unavailable PROBLEMS Type Condition ICD9-CM Code [id number] Code Onset Dates Condition S tatus SNOMED Code Problem Elevated erythrocyte sedimentation rate R70.0 Active 024644204 Problem Generalized anxiety disorder F41.1 A ctive 00614518 Problem Primary insomnia F51.01 Active 397 2004 Problem Morbid (severe) obesity due to excess calories E66 .01 Active 134446830 Problem Body mass index (BMI) of 40.0-44.9 in adult Z68.41 Active 926707820 Problem Sore throat J02.9 Active 38468242 3 Problem Chronic fatigue R53.82 Active 8422 9001 Problem Iron deficiency anemia secondary to inadequate d ietary iron intake D50.8 Active 620594899 Problem Unspecified mood [affective] disorder F39 Active 46321923 Problem Desire for Z31.9 Active 039175353 Problem Amenorrhea N91.2 Active 49310286 ALLERGIES Substance Reaction Event Type Date Status Lamotrigine rash Drug Allergy Apr, Active Abigail Unknown Drug Allergy Apr, Active ENCOUNTERS Encounter Location Date Diagnosis [facility] [address] [facility] [id number] [address] [place] [address] Apr, Other specified abnormal fin dings of blood chemistry R79.89 [facility] [address] [facility] [id number] [address] [place] [address] Apr, Sore throat J02.9 ; Diarrhea , unspecified R19.7 and Vomiting, unspecified R11.10 [facility] [address] [facility] [id number] [address] [place] [address] Apr, Chronic fatigue R53.82 ; Rey sea R11.0 and Lyme disease A69.20 [facility] [id number] [place] [address] Apr, [place] [address] [address] Mar, Generalized anxiety disorder F41.1 ; Unspecified mood [affective] disorder F39 ; BMI 40.0-44.9, adult Z68.41 and Myalgia M79.1 [facility] [address] [place] [id number] [address] [place] [address] Feb, Elevated erythrocyte sedimen tation rate R70.0 [place] [address] [address] Feb, Elevated erythrocyte sedimen tation rate R70.0 [place] [address] [address] Feb, Unprotected sexual intercour se Z72.51 ; Pain in left knee M25.562 and Pain in joints of right hand M25.541 [facility] [address] [place] [id number] [address] [place] [address] Feb, Pain in left knee M25.562 an d Pain in joints of right hand M25.541 [place] [id number] [place] [address] Feb, Unspecified mood [affective] disorder F39 ; Generalized anxiety disorder F41.1 ; Pain in joints of right hand M25.541 ; Pain in joints of left hand M25.542 ; Pain in right knee M25.561 ; Pain in left knee M25.562 and Morbid (severe) obesity due to excess calories E66.01 [facility] [address] [place] [id number] [address] [place] [address] Jan, Sore throat J02.9 ; Strep th roat J02.0 ; BMI 40.0-44.9, adult Z68.41 ; Dysuria R30.0 and Acute cystitis with hematuria N30.01 [facility] [address] [facility] [id number] [address] [place] [address] Jan, [facility] [address] [facility] [id number] [address] [place] [address] December, Abnormal MRI of head R93.0 [facility] [address] [facility] [id number] [address] [place] [address] December, Subcutaneous nodules R22.9 ; Syncope, unspecified syncope type R55 ; Abnormal MRI of head R93.0 and Iron deficiency anemia secondary to inadequate dietary iron intake D50.8 [place] [address] [facility] [id number] [address] [place] [address] December, [place] [address] [facility] [id number] [address] [place] [address] December, Iron deficiency anemia secon chuck to inadequate dietary iron intake D50.8 and BMI 40.0-44.9, adult Z68.41 [facility] [address] [facility] [id number] [address] [place] [address] Nov, Gastroenteritis K52.9 [facility] [address] [facility] [id number] [address] [place] [address] Nov, [facility] [address] [facility] [id number] [address] [place] [address] Nov, Bilateral hand swelling M79. 89 ; Amenorrhea N91.2 ; Desire for Z31.9 ; Amenorrhea, unspecified N91.2 ; Bilateral swelling of feet M79.89 ; Rash R21 and Iron deficiency anemia, unspecified iron deficiency anemia type D50.9 [facility] [address] [facility] [id number] [address] [place] [address] Nov, Bilateral hand swelling M79. 89 ; Bilateral swelling of feet M79.89 and Rash R21 [facility] [address] [facility] [id number] [address] [place] [address] Sep, Desire for Z31.9 a nd Amenorrhea N91.2 [facility] [address] [facility] [id number] [address] [place] [address] Aug, Scabies B86 [facility] [address] [facility] [id number] [address] [place] [address] Aug, Amenorrhea, unspecified N91. 2 [facility] [address] [place] [id number] [address] [place] [address] Aug, Amenorrhea, unspecified N91. 2 [place] [address] [address] [facility] [id number] [address] [place] [address] Aug, Amenorrhea N91.2 and Iron de ficiency anemia, unspecified iron deficiency anemia type D50.9 [place] [address] [facility] [id number] [address] [place] [address] Aug, Iron deficiency anemia secon chuck to inadequate dietary iron intake D50.8 ; Amenorrhea N91.2 ; Generalized anxiety disorder F41.1 ; Unspecified mood [affective] disorder F39 and Nausea R11.0 [facility] [address] [facility] [id number] [address] [place] [address] Jul, Non-intractable vomiting wit h nausea, unspecified vomiting type R11.2 and Pleurisy R09.1 [place] [address] [place] [id number] [address] [place] [address] Jul, [place] [address] [place] [id number] [address] [place] [address] 14 Jun, 2017 Unspecified mood [affective] disorder F39 [place] [address] [facility] [id number] [address] [place] [address] 02 Jun, 2017 Unspecified mood [affective] disorder F39 and Generalized anxiety disorder F41.1 [facility] [address] [facility] [id number] [address] [place] [address] 06 May, 2017 Bilious vomiting with nausea R11.14 [place] [address] [place] [id number] [address] [place] [address] May, Unspecified mood [affective] disorder F39 ; Generalized anxiety disorder F41.1 and Iron deficiency anemia, unspecified iron deficiency anemia type D50.9 [facility] [address] [facility] [id number] [address] [place] [address] Apr, Unspecified mood [affective] disorder F39 [facility] [address] [facility] [id number] [address] [place] [address] Apr, Iron deficiency anemia, unsp ecified iron deficiency anemia type D50.9 [facility] [address] [id number] [address] [place] [address] Apr, Iron deficiency anemia, unsp ecified iron deficiency anemia type D50.9 [facility] [address] [facility] [id number] [address] [place] [address] Apr, Unspecified mood [affective] disorder F39 [facility] [address] [facility] [id number] [address] [place] [address] Apr, Abnormal CBC R79.89 [facility] [address] [facility] [id number] [address] [place] [address] Apr, Abnormal CBC R79.89 [place] [address] [facility] [id number] [address] [place] [address] 05 Apr, 2017 Encounter to establish care with new doctor Z76.89 ; Unspecified mood [affective] disorder F39 and Primary insomnia F51.01 [facility] [address] [facility] [id number] [address] [place] [address] Mar, Unspecified mood [affective] disorder F39 and Generalized anxiety disorder F41.1 [facility] [address] [facility] [id number] [address] [place] [address] Mar, Sore throat J02.9 and Strep pharyngitis J02.0 [facility] [address] [id number] [address] [place] [id number] Feb, Dental examination Z01.20 [facility] [address] [id number] [address] [place] [id number] Jan, Encounter for dental examina tion Z01.20 [facility] [address] [place] [id number] [address] [place] [address] Nov, Fever, unspecified R50.9 and Acute nasopharyngitis J00 [facility] [address] [place] [id number] [address] [place] [address] 18 Sep, 2015 Abdominal pain, acute, right upper quadrant 789.01 [facility] [address] [place] [id number] [address] [place] [address] Sep, [facility] [address] [address] Aug, Irritable bowel syndrome wit h diarrhea K58.0 [facility] [address] [place] [id number] [address] [place] [address] Aug, Urinary tract infection, sit e not specified N39.0 and Back pain M54.9 [facility] [address] [place] [id number] [address] [place] [address] Mar, Abdominal pain, acute, right upper quadrant 789.01 [facility] [address] [place] [id number] [address] [place] [address] Mar, [facility] [address] [place] [id number] [address] [place] [address] Mar, Nausea 787.02 and Abdominal pain, acute, right upper quadrant 789.01 [facility] [address] [place] [id number] [address] [place] [address] Mar, Nausea 787.02 and Abdominal pain 789.00 [facility] [address] [place] [id number] [address] [place] [address] Mar, Nausea 787.02 [facility] [address] [place] [id number] [address] [place] [address] Jan, Amenorrhea 626.0 [facility] [address] [id number] [address] [place] [address] Jan, Amenorrhea 626.0 and Obesity 278.00 [facility] [address] [id number] [address] [place] [address] December, Amenorrhea 626.0 and Cough 7 86.2 [facility] [address] [id number] [address] [place] [address] Nov, [facility] [address] [id number] [address] [place] [address] Nov, [facility] [address] [id number] [address] [place] [address], [place] [address] May, [facility] [address] [id number] [address] [place] [address] May, [facility] [address] [id number] [address] [place] [address], [place] [address] Mar, [facility] [address] [id number] [address] [place] [address] Mar, [facility] [address] [id number] [address] [place] [address], [place] [address] Mar, [facility] [address] [id number] [address] [place] [address] Mar, [facility] [address] [id number] [address] [place] [address], [place] [address] Mar, [facility] [address] [id number] [address] [place] [address] Mar, [facility] [address] [id number] [address] [place] [address] Mar, [facility] [address] [id number] [address] [place] [address] Mar, [facility] [address] [id number] [address] [place] [address] Mar, [facility] [address] [id number] [address] [place] [address], [place] [address] Mar, [facility] [address] [id number] [address] [place] [address], [place] [address] Mar, [facility] [address] [id number] [address] [place] [address], [place] [address] Mar, [facility] [address] [id number] [address] [place] [address], [place] [address] Mar, [facility] [address] [id number] [address] [place] [address], [place] [address] Mar, [facility] [address] [id number] [address] [place] [address], [place] [address] Mar, [facility] [address] [id number] [address] [place] [address], [place] [address] Feb, [facility] [address] [id number] [address] [place] [address], [place] [address] Feb, [facility] [address] [id number] [address] [place] [address], [place] [address] Feb, [facility] [address] [id number] [address] [place] [address], [place] [address] Feb, [facility] [address] [id number] [address] [place] [address], [place] [address] Feb, [facility] [address] [id number] [address] [place] [address], [place] [address] Feb, [facility] [address] [id number] [address] [place] [address], [place] [address] Feb, [facility] [address] [id number] [address] [place] [address], [place] [address] Feb, [facility] [address] [id number] [address] [place] [address], [place] [address] Feb, [facility] [address] [id number] [address] [place] [address], [place] [address] Feb, 2013 [facility] [address] [id number] [address] [place] [address], [place] [address] Feb, 2013 [facility] [address] [id number] [address] [place] [address], [place] [address] Feb, 2013 [facility] [address] [id number] [address] [place] [address], [place] [address] Feb, 2013 [facility] [address] [id number] [address] [place] [address], [place] [address] Feb, 2013 [facility] [address] [id number] [address] [place] [address], [place] [address] Feb, 2013 [facility] [address] [id number] [address] [place] [address], [place] [address] Jan, [facility] [address] [id number] [address] [place] [address], [place] [address] Jan, [facility] [address] [id number] [address] [place] [address], [place] [address] Jan, [facility] [address] [id number] [address] [place] [address], [place] [address] Jan, [facility] [address] [id number] [address] [place] [address], [place] [address] Jan, [facility] [address] [id number] [address] [place] [address], [place] [address] Jan, [facility] [address] [id number] [address] [place] [address], [place] [address] Jan, [facility] [address] [id number] [address] [place] [address], [place] [address] Jan, [facility] [address] [id number] [address] [place] [address], [place] [address] Jan, [facility] [address] [id number] [address] [place] [address], [place] [address] Jan, [facility] [address] [id number] [facility] [address] Jan, [facility] [address] [id number] [facility] [address] Jan, [facility] [address] [id number] [facility] [address] Jan, [facility] [address] [id number] [address] [place] [address], [place] [address] December, [facility] [address] [id number] [facility] [address] December, [facility] [address] [id number] [address] [place] [address], [place] [address] December, [facility] [address] [id number] [address] [place] [address], [place] [address] December, [facility] [address] [id number] [address] [place] [address], [place] [address] December, [facility] [address] [id number] [address] [place] [address], [place] [address] December, [facility] [address] [id number] [address] [place] [address], [place] [address] December, [facility] [address] [id number] [address] [place] [address], [place] [address] December, [facility] [address] [id number] [address] [place] [address], [place] [address] December, [facility] [address] [id number] [address] [place] [address], [place] [address] December, [facility] [address] [id number] [address] [place] [address], [place] [address] December, [facility] [address] [id number] [address] [place] [address], [place] [address] December, [facility] [address] [id number] [address] [place] [address], [place] [address] Nov, [facility] [address] [id number] [facility] [address] 16 Nov, 2013 [facility] [address] [id number] [facility] [address] 22 Oct, 2013 [facility] [address] [id number] [facility] [address] 21 Oct, 2013 [facility] [address] [id number] [address] [place] [address], [place] [address] 20 Oct, 2013 [facility] [address] [id number] [address] [place] [address], [place] [address] 20 Oct, 2013 [facility] [address] [id number] [address] [place] [address], [place] [address] 19 Oct, 2013 [facility] [address] [id number] [address] [place] [address], [place] [address] 19 Oct, 2013 [facility] [address] [id number] [address] [place] [address], [place] [address] 19 Oct, 2013 [facility] [address] [id number] [address] [place] [address], [place] [address] 19 Oct, 2013 [facility] [address] [id number] [address] [place] [address], [place] [address] 18 Oct, 2013 [facility] [address] [id number] [address] [place] [address], [place] [address] 08 Oct, 2013 [facility] [address] [id number] [address] [place] [address], [place] [address] 07 Oct, 2013 [facility] [address] [id number] [address] [place] [address], [place] [address] 06 Oct, 2013 [facility] [address] [id number] [address] [place] [address], [place] [address] 06 Oct, 2013 [facility] [address] [id number] [address] [place] [address], [place] [address] 05 Oct, 2013 [facility] [address] [id number] [address] [place] [address], [place] [address] 05 Oct, 2013 [facility] [address] [id number] [address] [place] [address], [place] [address] Oct, [facility] [address] [id number] [address] [place] [address], [place] [address] Oct, [facility] [address] [id number] [address] [place] [address], [place] [address] Sep, [facility] [address] [id number] [address] [place] [address], [place] [address] Sep, [facility] [address] [id number] [address] [place] [address], [place] [address] Sep, [facility] [address] [id number] [address] [place] [address], [place] [address] Jun, [facility] [address] [id number] [address] [place] [address], [place] [address] Jun, [facility] [address] [id number] [address] [place] [address], [place] [address] Jun, [facility] [address] [id number] [address] [place] [address], [place] [address] Jun, [facility] [address] [id number] [address] [place] [address], [place] [address] Jun, [facility] [address] [id number] [address] [place] [address], [place] [address] Jun, [facility] [address] [id number] [address] [place] [address], [place] [address] May, [facility] [address] [id number] [address] [place] [address], [place] [address] May, [facility] [address] [id number] [address] [place] [address], [place] [address] May, [facility] [address] [id number] [address] [place] [address], [place] [address] 15 May, 2013 [facility] [address] [id number] [address] [place] [address], [place] [address] 15 May, 2013 [facility] [address] [id number] [address] [place] [address], [place] [address] May, [facility] [address] [id number] [address] [place] [address], [place] [address] 26 Apr, 2013 [facility] [address] [id number] [address] [place] [address], [place] [address] 24 Apr, 2013 [facility] [address] [id number] [address] [place] [address], [place] [address] 23 Apr, 2012 [facility] [address] [id number] [address] [place] [address], [place] [address] 20 Apr, 2013 [facility] [address] [id number] [address] [place] [address], [place] [address] 19 Apr, 2012 [facility] [address] [id number] [address] [place] [address], [place] [address] 17 Apr, 2013 [facility] [address] [id number] [address] [place] [address], [place] [address] 13 Apr, 2013 [facility] [address] [id number] [address] [place] [address], [place] [address] 11 Apr, 2013 [facility] [address] [id number] [address] [place] [address], [place] [address] 09 Apr, 2013 [facility] [address] [id number] [address] [place] [address], [place] [address] 05 Apr, 2013 [facility] [address] [id number] [address] [place] [address], [place] [address] Mar, [facility] [address] [id number] [address] [place] [address], [place] [address] Nov, [facility] [address] [id number] [address] [place] [address], [place] [address] Oct, [facility] [address] [id number] [address] [place] [address] Oct, [facility] [address] [id number] [address] [place] [address] Sep, [facility] [address] [id number] [address] [place] [address] May, [facility] [address] [id number] [address] [place] [id number] May, [facility] [address] [id number] [address] [place] [id number] May, [facility] [address] [id number] [address] [place] [phone] May, [facility] [address] [id number] [address] [place] [phone] Apr, [facility] [address] [id number] [address] [place] [id number] Apr, [facility] [address] [id number] [address] [place] [id number] Mar, [facility] [address] [id number] [address] [place] [id number] Feb, [facility] [address] [id number] [address] [place] [phone] Jul, [facility] [address] [id number] [address] [place] [id number] Jul, [facility] [address] [id number] [address] [place] [id number] Jul, [facility] [address] [id number] [address] [place] [phone] December, [facility] [address] [id number] [address] [place] [id number] December, [facility] [address] [id number] [address] [place] [id number] Oct, IMMUNIZATIONS No Known Immunizations SOCIAL HISTORY Never Assessed REASON FOR VISIT Nausea, tiredness, less energy. Pt states that is a possibility, pt pe riods are irregular so she is unable to track and pt is not preventing .-[facility] PLAN OF CARE Activity Details Follow Up 3 Months, prn Reason:CHM/Fat igue- w/ Tala VITAL SIGNS Height 68 in 2018-04-30 Weight 270.6 lbs 2018-04-30 Temperature 98.7 degrees Fahrenheit 2018-04-30 Respiratory Rate 20 2018-04-30 BMI 41.14 kg/m2 2018-04-30 Blood pressure systolic 120 mmHg 2018-04-30 Blood pressure diastolic 72 mmHg 2018-04-30 MEDICATIONS Medication Instructions Dosage Frequency Start Date End Date Duration S tatus Amoxicillin 500 mg Orally every 8 hrs 1 capsule 8h Apr, Apr, 7 days Active Abilify 10 mg Orally Once a day 1 tablet 24h 14 Jun, 2017 90 days Active Propranolol HCl 10 mg Orally twice a day 1 tablet on an empty stoma ch 12h Mar, 30 day(s) Active Ibuprofen 400 MG Orally Three times a day 1 tablet with food or milk as needed 8h Active Tylenol 325 MG Orally every 4 hrs 1 tablet as needed 4h Active RESULTS No Results PROCEDURES Procedure Date Ordered Result Body Site URINE TEST Apr 30, 2018 [facility] Apr 30, 2018 VENIPUNCT, ROUTINE* Apr 30, 2018 INSTRUCTIONS MEDICATIONS ADMINISTERED No Known Medications MEDICAL (GENERAL) HISTORY Type Description Date Medical History anemia Medical History asthma Surgical History section x2 Surgical History hernia repair Hospitalization History surgeries Hospitalization History possible gallbladder problems Hospitalization History ER visit for UTI 09/12/15 Hospitalization History dizziness, blackout 12/28/2017
--- OUTSIDE RECORDS SUMMARY | 2019-10-07 05:31 | XMS REPORT ---
Author Author Jailene ALVES Organization [facility] Address [address] [place] [address] Care Team Providers [employer] Name Role Phone JOSELYNWANDARYL Unavailable PROBLEMS Type Condition ICD9-CM Code IWR52-NM Code Onset Dates Condition S tatus SNOMED Code Problem Body mass index (BMI) of 40.0-44.9 in adult Z68.41 Active 790377834 Problem Elevated erythrocyte sedimentation rate R70.0 Active 264103340 Problem Morbid (severe) obesity due to excess calories E66 .01 Active 436052292 Problem Desire for Z31.9 Active 370035797 Problem Amenorrhea N91.2 Active 97029619 Problem Generalized anxiety disorder F41.1 A ctive 80150222 Problem Primary insomnia F51.01 Active 397 2004 Problem Iron deficiency anemia secondary to inadequate d ietary iron intake D50.8 Active 161194866 Problem Unspecified mood [affective] disorder F39 Active [id number] ALLERGIES No Information ENCOUNTERS Encounter Location Date Diagnosis [place] [address] [place] [id number] [address] [place] [address] Apr, [place] [address] [place] [id number] [address] [place] [address] Mar, Generalized anxiety disorder F41.1 ; Unspecified mood [affective] disorder F39 ; BMI 40.0-44.9, adult Z68.41 and Myalgia M79.1 [facility] [address] [facility] [id number] [address] [place] [address] Feb, Elevated erythrocyte sedimen tation rate R70.0 [place] [address] [facility] [id number] [address] [place] [address] Feb, Elevated erythrocyte sedimen tation rate R70.0 [place] [address] [place] [id number] [address] [place] [address] Feb, Unprotected sexual intercour se Z72.51 ; Pain in left knee M25.562 and Pain in joints of right hand M25.541 [place] [address] [place] [id number] [address] [place] [address] Feb, Pain in left knee M25.562 an d Pain in joints of right hand M25.541 [place] [address] [address] Feb, Unspecified mood [affective] disorder F39 ; Generalized anxiety disorder F41.1 ; Pain in joints of right hand M25.541 ; Pain in joints of left hand M25.542 ; Pain in right knee M25.561 ; Pain in left knee M25.562 and Morbid (severe) obesity due to excess calories E66.01 [facility] [address] [place] [id number] [address] [place] [address] Jan, Sore throat J02.9 ; Strep th roat J02.0 ; BMI 40.0-44.9, adult Z68.41 ; Dysuria R30.0 and Acute cystitis with hematuria N30.01 [place] [address] [place] [id number] [address] [place] [address] Jan, [place] [address] [place] [id number] [address] [place] [address] December, Abnormal MRI of head R93.0 [place] [address] [address] December, Subcutaneous nodules R22.9 ; Syncope, unspecified syncope type R55 ; Abnormal MRI of head R93.0 and Iron deficiency anemia secondary to inadequate dietary iron intake D50.8 [place] [address] [place] [id number] [address] [place] [address] December, [place] [address] [address] December, Iron deficiency anemia secon chuck to inadequate dietary iron intake D50.8 and BMI 40.0-44.9, adult Z68.41 [facility] [address] [address] Nov, Gastroenteritis K52.9 [place] [address] [address] Nov, [place] [address] [address] Nov, Bilateral hand swelling M79. 89 ; Amenorrhea N91.2 ; Desire for Z31.9 ; Amenorrhea, unspecified N91.2 ; Bilateral swelling of feet M79.89 ; Rash R21 and Iron deficiency anemia, unspecified iron deficiency anemia type D50.9 [place] [address] [address] Nov, Bilateral hand swelling M79. 89 ; Bilateral swelling of feet M79.89 and Rash R21 [place] [address] [address] Sep, Desire for Z31.9 a nd Amenorrhea N91.2 [facility] [address] [address] Aug, Scabies B86 [place] [address] [address] Aug, Amenorrhea, unspecified N91. 2 [place] [address] [address] Aug, Amenorrhea, unspecified N91. 2 [place] [address] [address] Aug, Amenorrhea N91.2 and Iron de ficiency anemia, unspecified iron deficiency anemia type D50.9 [place] [address] [address] Aug, Iron deficiency anemia secyvonne chuck to inadequate dietary iron intake D50.8 ; Amenorrhea N91.2 ; Generalized anxiety disorder F41.1 ; Unspecified mood [affective] disorder F39 and Nausea R11.0 [facility] [address] [place] [id number] [address] [place] [address] Jul, Non-intractable vomiting wit h nausea, unspecified vomiting type R11.2 and Pleurisy R09.1 [facility] [address] [place] [address] Jul, [facility] [address] [address] Jun, Unspecified mood [affective] disorder F39 [place] [address] [address] Jun, Unspecified mood [affective] disorder F39 and Generalized anxiety disorder F41.1 [facility] [address] [place] [id number] [address] [place] [address] May, Bilious vomiting with nausea R11.14 [facility] [address] [address] May, Unspecified mood [affective] disorder F39 ; Generalized anxiety disorder F41.1 and Iron deficiency anemia, unspecified iron deficiency anemia type D50.9 [facility] [address] [place] [address] Apr, Unspecified mood [affective] disorder F39 [facility] [address] [place] [address] Apr, Iron deficiency anemia, unsp ecified iron deficiency anemia type D50.9 [place] [address] [place] [id number] [address] [place] [address] Apr, Iron deficiency anemia, unsp ecified iron deficiency anemia type D50.9 [facility] [address] [place] [id number] [address] [place] [address] Apr, Unspecified mood [affective] disorder F39 [facility] [address] [facility] [id number] [address] [place] [address] 07 Apr, 2017 Abnormal CBC R79.89 [facility] [address] [facility] [id number] [address] [place] [address] 07 Apr, 2017 Abnormal CBC R79.89 [facility] [address] [facility] [id number] [address] [place] [address] 05 Apr, 2017 Encounter to establish care with new doctor Z76.89 ; Unspecified mood [affective] disorder F39 and Primary insomnia F51.01 [facility] [address] [facility] [id number] [address] [place] [address] Mar, Unspecified mood [affective] disorder F39 and Generalized anxiety disorder F41.1 [facility] [address] [facility] [id number] [address] [place] [address] Mar, Sore throat J02.9 and Strep pharyngitis J02.0 [facility] [address] [place] [id number] [address] [place] [id number] Feb, Dental examination Z01.20 [facility] [address] [facility] [id number] [address] [place] [id number] Jan, Encounter for dental examina tion Z01.20 [facility] [address] [facility] [id number] [address] [place] [address] Nov, Fever, unspecified R50.9 and Acute nasopharyngitis J00 [facility] [address] [id number] [address] [place] [address] Sep, Abdominal pain, acute, right upper quadrant 789.01 [facility] [address] [facility] [id number] [address] [place] [phone] Sep, [facility] [address] [facility] [id number] [address] [place] [address] Aug, Irritable bowel syndrome wit h diarrhea K58.0 [facility] [address] [place] [id number] [address] [place] [address] Aug, Urinary tract infection, sit e not specified N39.0 and Back pain M54.9 [facility] [address] [place] [id number] [address] [place] [address] Mar, Abdominal pain, acute, right upper quadrant 789.01 [facility] [address] [address] Mar, [facility] [address] [address] Mar, Nausea 787.02 and Abdominal pain, acute, right upper quadrant 789.01 [facility] [address] [place] [id number] [place] [address] Mar, Nausea 787.02 and Abdominal pain 789.00 [facility] [address] [address] Mar, Nausea 787.02 [facility] [address] [address] Jan, Amenorrhea 626.0 [place] [address] [address] Jan, Amenorrhea 626.0 and Obesity 278.00 [facility] [address] [place] [id number] [address] [place] [address] December, Amenorrhea 626.0 and Cough 7 86.2 [facility] [address] [place] [id number] [address] [place] [address] Nov, [facility] [address] [address] Nov, [facility] [address] [place] [id number] [address] [place] [address] May, [facility] [address] [address] May, [facility] [address] [id number] [facility] [place] [address] Mar, [facility] [address] [id number] [facility] [place] [address] Mar, [facility] [address] [id number] [address] [place] [address], [place] [address] Mar, [facility] [address] [id number] [address] [place] [address], [place] [address] Mar, [facility] [address] [id number] [address] [place] [address], [place] [address] Mar, [facility] [address] [id number] [address] [place] [address], [place] [address] Mar, [facility] [address] [id number] [address] [place] [address], [place] [address] Mar, [facility] [address] [id number] [address] [place] [address], [place] [address] Mar, [facility] [address] [id number] [address] [place] [address], [place] [address] Mar, [facility] [address] [id number] [address] [place] [address], [place] [address] Mar, [facility] [address] [id number] [address] [place] [address], [place] [address] Mar, [facility] [address] [id number] [address] [place] [address], [place] [address] Mar, [facility] [address] [id number] [address] [place] [address], [place] [address] Mar, [facility] [address] [id number] [address] [place] [address], [place] [address] Mar, [facility] [address] [id number] [address] [place] [address], [place] [address] Mar, [facility] [address] [id number] [facility] [place] [address] Feb, 2013 [facility] [address] [id number] [address] [place] [address], [place] [address] Feb, 2013 [facility] [address] [id number] [address] [place] [address], [place] [address] Feb, 2013 [facility] [address] [id number] [address] [place] [address], [place] [address] Feb, 2013 [facility] [address] [id number] [address] [place] [address], [place] [address] Feb, 2013 [facility] [address] [id number] [address] [place] [address], [place] [address] Feb, 2013 [facility] [address] [id number] [address] [place] [address], [place] [address] Feb, 2013 [facility] [address] [id number] [address] [place] [address], [place] [address] Feb, 2013 [facility] [address] [id number] [address] [place] [address], [place] [address] Feb, 2013 [facility] [address] [id number] [address] [place] [address], [place] [address] Feb, 2013 [facility] [address] [id number] [address] [place] [address], [place] [address] Feb, 2013 [facility] [address] [id number] [address] [place] [address], [place] [address] Feb, 2013 [facility] [address] [id number] [address] [place] [address], [place] [address] Feb, 2013 [facility] [address] [id number] [address] [place] [address], [place] [address] Feb, [facility] [address] [id number] [address] [place] [address], [place] [address] Feb, 2013 [facility] [address] [id number] [address] [place] [address], [place] [address] Jan, [facility] [address] [id number] [facility] [place] [address] Jan, [facility] [address] [id number] [facility] [place] [address] Jan, [facility] [address] [id number] [facility] [place] [address] Jan, [facility] [address] [id number] [facility] [place] [address] Jan, [facility] [address] [id number] [facility] [address] Jan, [facility] [address] [id number] [address] [place] [address], [place] [address] Jan, [facility] [address] [id number] [address] [place] [address], [place] [address] Jan, [facility] [address] [id number] [address] [place] [address], [place] [address] Jan, [facility] [address] [id number] [address] [place] [address], [place] [address] Jan, [facility] [address] [id number] [address] [place] [address], [place] [address] Jan, [facility] [address] [id number] [address] [place] [address], [place] [address] Jan, [facility] [address] [id number] [address] [place] [address], [place] [address] Jan, [facility] [address] [id number] [address] [place] [address], [place] [address] December, [facility] [address] [id number] [address] [place] [address], [place] [address] December, [facility] [address] [id number] [address] [place] [address], [place] [address] December, [facility] [address] [id number] [address] [place] [address], [place] [address] December, [facility] [address] [id number] [address] [place] [address], [place] [address] December, [facility] [address] [id number] [address] [place] [address], [place] [address] December, [facility] [address] [id number] [address] [place] [address], [place] [address] December, [facility] [address] [id number] [address] [place] [address], [place] [address] December, [facility] [address] [id number] [address] [place] [address], [place] [address] December, [facility] [address] [id number] [address] [place] [address], [place] [address] December, [facility] [address] [id number] [address] [place] [address], [place] [address] December, [facility] [address] [id number] [address] [place] [address], [place] [address] December, [facility] [address] [id number] [address] [place] [address], [place] [address] Nov, [facility] [address] [id number] [address] [place] [address], [place] [address] Nov, [facility] [address] [id number] [address] [place] [address], [place] [address] Oct, [facility] [address] [id number] [address] [place] [address], [place] [address] Oct, [facility] [address] [id number] [address] [place] [address], [place] [address] Oct, [facility] [address] [id number] [address] [place] [address], [place] [address] Oct, [facility] [address] [id number] [address] [place] [address], [place] [address] Oct, [facility] [address] [id number] [facility] [place] [address] 19 Oct, 2013 [facility] [address] [id number] [facility] [address] 19 Oct, 2013 [facility] [address] [id number] [facility] [place] [address] 19 Oct, 2013 [facility] [address] [id number] [address] [place] [address], [place] [address] 18 Oct, 2013 [facility] [address] [id number] [address] [place] [address], [place] [address] 08 Oct, 2013 [facility] [address] [id number] [address] [place] [address], [place] [address] 07 Oct, 2013 [facility] [address] [id number] [address] [place] [address], [place] [address] 06 Oct, 2013 [facility] [address] [id number] [address] [place] [address], [place] [address] 06 Oct, 2013 [facility] [address] [id number] [address] [place] [address], [place] [address] 05 Oct, 2013 [facility] [address] [id number] [address] [place] [address], [place] [address] 05 Oct, 2013 [facility] [address] [id number] [address] [place] [address], [place] [address] Oct, [facility] [address] [id number] [address] [place] [address], [place] [address] Oct, [facility] [address] [id number] [address] [place] [address], [place] [address] Sep, [facility] [address] [id number] [address] [place] [address], [place] [address] Sep, [facility] [address] [id number] [address] [place] [address], [place] [address] Sep, [facility] [address] [id number] [address] [place] [address], [place] [address] Jun, [facility] [address] [id number] [address] [place] [address], [place] [address] Jun, [facility] [address] [id number] [address] [place] [address], [place] [address] Jun, [facility] [address] [id number] [address] [place] [address], [place] [address] Jun, [facility] [address] [id number] [address] [place] [address], [place] [address] Jun, [facility] [address] [id number] [address] [place] [address], [place] [address] Jun, [facility] [address] [id number] [address] [place] [address], [place] [address] May, [facility] [address] [id number] [address] [place] [address], [place] [address] May, [facility] [address] [id number] [address] [place] [address], [place] [address] May, [facility] [address] [id number] [address] [place] [address], [place] [address] May, [facility] [address] [id number] [address] [place] [address] May, [facility] [address] [id number] [address] [place] [address], [place] [address] May, [facility] [address] [id number] [address] [place] [address] Apr, [facility] [address] [id number] [address] [place] [address], [place] [address] 24 Apr, 2013 [facility] [address] [id number] [address] [place] [address], [place] [address] 23 Apr, 2013 [facility] [address] [id number] [address] [place] [address], [place] [address] 20 Apr, 2013 [facility] [address] [id number] [address] [place] [address], [place] [address] 19 Apr, 2012 [facility] [address] [id number] [address] [place] [address], [place] [address] 17 Sep, 2012 [facility] [address] [id number] [address] [place] [address], [place] [address] 13 Apr, 2013 [facility] [address] [id number] [address] [place] [address], [place] [address] 11 Apr, 2012 [facility] [address] [id number] [address] [place] [address], [place] [address] 09 Apr, 2013 [facility] [address] [id number] [address] [place] [address], [place] [address] 05 Apr, 2013 [facility] [address] [id number] [address] [place] [address], [place] [address] Mar, [facility] [address] [id number] [address] [place] [address], [place] [address] 02 Nov, 2012 [facility] [address] [id number] [address] [place] [address], [place] [address] Oct, [facility] [address] [id number] [address] [place] [address], [place] [address] Oct, [facility] [address] [id number] [address] [place] [address], [place] [address] Sep, [facility] [address] [id number] [address] [place] [address], [place] [address] May, [facility] [address] [id number] [address] [place] [address], [place] [address] May, [facility] [address] [id number] [address] [place] [address], [place] [address] May, [facility] [address] [id number] [address] [place] [address], [place] [address] May, [facility] [address] [id number] [address] [place] [address], [place] [address] 24 Apr, 2012 [facility] [address] [id number] [address] [place] [phone] Apr, [facility] [address] [id number] [address] [place] [phone] Mar, [facility] [address] [id number] [address] [place] [phone] Feb, [facility] [address] [id number] [address] [place] [phone] Jul, [facility] [address] [id number] [address] [place] [phone] Jul, [facility] [address] [id number] [address] [place] [phone] Jul, [facility] [address] [id number] [address] [place] [phone] December, [facility] [address] [id number] [address] [place] [phone] December, [facility] [address] [id number] [address] [place] [phone] Oct, IMMUNIZATIONS No Known Immunizations SOCIAL HISTORY Never Assessed REASON FOR VISIT Lab (walk-in) PLAN OF CARE VITAL SIGNS MEDICATIONS Unknown Medications RESULTS No Results PROCEDURES Procedure Date Ordered Result Body Site VENIPUNCT, ROUTINE* March 11, 2018 INSTRUCTIONS MEDICATIONS ADMINISTERED No Known Medications MEDICAL (GENERAL) HISTORY Type Description Date Medical History anemia Medical History asthma Surgical History section x2 Surgical History hernia repair Hospitalization History surgeries Hospitalization History possible gallbladder problems Hospitalization History ER visit for UTI 09/12/15 Hospitalization History dizziness, blackout 12/28/2017
--- OUTSIDE RECORDS SUMMARY | 2019-10-07 05:31 | XMS REPORT ---
Author Author Jailene ALVES Organization [facility] Address [address] [place] [address] Care Team Providers Care Ammonia Operator Name Role Phone ALVESWAN EubanksELE Unavailable PROBLEMS Type Condition ICD9-CM Code ZWS30-ED Code Onset Dates Condition S tatus SNOMED Code Problem Morbid (severe) obesity due to excess calories E66 .01 Active 087517922 Problem Primary insomnia F51.01 Active 397 2004 Problem Elevated erythrocyte sedimentation rate R70.0 Active 526155115 Problem Body mass index (BMI) of 40.0-44.9 in adult Z68.41 Active 472448453 Problem Chronic fatigue R53.82 Active 8422 9001 Problem Desire for Z31.9 Active 095123104 Problem Unspecified mood [affective] disorder F39 Active 67445478 Problem Generalized anxiety disorder F41.1 A ctive 10560926 Problem Amenorrhea N91.2 Active 17303608 Problem Iron deficiency anemia secondary to inadequate d ietary iron intake D50.8 Active 539432954 ALLERGIES Substance Reaction Event Type Date Status Lamotrigine rash Drug Allergy Mar, Active Abigail Unknown Drug Allergy Mar, Active ENCOUNTERS Encounter Location Date Diagnosis [place] [address] [place] [id number] [address] [place] [phone] Apr, Chronic fatigue R53.82 ; Rey sea R11.0 and Lyme disease A69.20 [facility] [address] [place] [id number] [address] [place] [phone] Apr, [place] [address] [place] [id number] [address] [place] [phone] Mar, Generalized anxiety disorder F41.1 ; Unspecified mood [affective] disorder F39 ; BMI 40.0-44.9, adult Z68.41 and Myalgia M79.1 [place] [address] [facility] [id number] [address] [place] [phone] Feb, Elevated erythrocyte sedimen tation rate R70.0 [facility] [address] [facility] [id number] [address] [place] [phone] Feb, Elevated erythrocyte sedimen tation rate R70.0 [facility] [address] [facility] [id number] [address] [place] [id number] Feb, Unprotected sexual intercour se Z72.51 ; Pain in left knee M25.562 and Pain in joints of right hand M25.541 [facility] [address] [facility] [id number] [address] [place] [phone] Feb, Pain in left knee M25.562 an d Pain in joints of right hand M25.541 [place] [address] [place] [id number] [address] [place] [phone] Feb, Unspecified mood [affective] disorder F39 ; Generalized anxiety disorder F41.1 ; Pain in joints of right hand M25.541 ; Pain in joints of left hand M25.542 ; Pain in right knee M25.561 ; Pain in left knee M25.562 and Morbid (severe) obesity due to excess calories E66.01 [facility] [address] [facility] [id number] [address] [place] [id number] Jan, Sore throat J02.9 ; Strep th roat J02.0 ; BMI 40.0-44.9, adult Z68.41 ; Dysuria R30.0 and Acute cystitis with hematuria N30.01 [facility] [address] [facility] [id number] [address] [place] [phone] Jan, [facility] [address] [place] [id number] [address] [place] [id number] December, Abnormal MRI of head R93.0 [facility] [address] [facility] [id number] [address] [place] [phone] December, Subcutaneous nodules R22.9 ; Syncope, unspecified syncope type R55 ; Abnormal MRI of head R93.0 and Iron deficiency anemia secondary to inadequate dietary iron intake D50.8 [place] [address] [address] December, [place] [address] [place] [id number] [place] [address] December, Iron deficiency anemia secon chuck to inadequate dietary iron intake D50.8 and BMI 40.0-44.9, adult Z68.41 [facility] [address] [address] Nov, Gastroenteritis K52.9 [place] [address] [address] Nov, [place] [address] [address] Nov, Bilateral hand swelling M79. 89 ; Amenorrhea N91.2 ; Desire for Z31.9 ; Amenorrhea, unspecified N91.2 ; Bilateral swelling of feet M79.89 ; Rash R21 and Iron deficiency anemia, unspecified iron deficiency anemia type D50.9 [place] [address] [place] [id number] [address] [place] [address] Nov, Bilateral hand swelling M79. 89 ; Bilateral swelling of feet M79.89 and Rash R21 [place] [address] [address] Sep, Desire for Z31.9 a nd Amenorrhea N91.2 [facility] [address] [place] [id number] [place] [phone] Aug, Scabies B86 [place] [address] [place] [id number] [place] [address] Aug, Amenorrhea, unspecified N91. 2 [place] [address] [address] 16 [place], 2018 Amenorrhea, unspecified N91. 2 [facility] [address] [facility] [id number] [address] [place] [phone] Aug, Amenorrhea N91.2 and Iron de ficiency anemia, unspecified iron deficiency anemia type D50.9 [facility] [address] [facility] [id number] [address] [place] [address] Aug, Iron deficiency anemia secon chuck to inadequate dietary iron intake D50.8 ; Amenorrhea N91.2 ; Generalized anxiety disorder F41.1 ; Unspecified mood [affective] disorder F39 and Nausea R11.0 [facility] [address] [facility] [id number] [address] [place] [phone] Jul, Non-intractable vomiting wit h nausea, unspecified vomiting type R11.2 and Pleurisy R09.1 [facility] [address] [place] [id number] [place] [address] Jul, [facility] [address] [place] [id number] [place] [address] Jun, Unspecified mood [affective] disorder F39 [place] [address] [address] Jun, Unspecified mood [affective] disorder F39 and Generalized anxiety disorder F41.1 [facility] [address] [place] [id number] [place] [address] May, Bilious vomiting with nausea R11.14 [facility] [address] [place] [id number] [place] [phone] May, Unspecified mood [affective] disorder F39 ; Generalized anxiety disorder F41.1 and Iron deficiency anemia, unspecified iron deficiency anemia type D50.9 [facility] [address] [place] [id number] [place] [address] Apr, Unspecified mood [affective] disorder F39 [facility] [address] [place] [id number] [place] [address] Apr, Iron deficiency anemia, unsp ecified iron deficiency anemia type D50.9 [facility] [address] [facility] [id number] [address] [place] [phone] Apr, Iron deficiency anemia, unsp ecified iron deficiency anemia type D50.9 [facility] [address] [facility] [id number] [address] [place] [id number] 18 Apr, 2017 Unspecified mood [affective] disorder F39 [facility] [address] [facility] [id number] [address] [place] [id number] 07 Apr, 2017 Abnormal CBC R79.89 [facility] [address] [facility] [id number] [address] [place] [id number] 07 Apr, 2017 Abnormal CBC R79.89 [place] [address] [facility] [id number] [address] [place] [id number] 05 Apr, 2017 Encounter to establish care with new doctor Z76.89 ; Unspecified mood [affective] disorder F39 and Primary insomnia F51.01 [facility] [address] [place] [id number] [place] [address] Mar, Unspecified mood [affective] disorder F39 and Generalized anxiety disorder F41.1 [facility] [address] [place] [id number] [place] [phone] Mar, Sore throat J02.9 and Strep pharyngitis J02.0 [facility] [address] [place] [id number] [place] [id number] Feb, Dental examination Z01.20 [facility] [address] [place] [id number] [address] [place] [id number] Jan, Encounter for dental examina tion Z01.20 [facility] [address] [facility] [id number] [address] [place] [phone] Nov, Fever, unspecified R50.9 and Acute nasopharyngitis J00 [facility] [address] [facility] [id number] [address] [place] [id number] 18 Sep, 2015 Abdominal pain, acute, right upper quadrant 789.01 [facility] [address] [place] [id number] [place] [phone] Sep, [facility] [address] [place] [id number] [place] [address] Aug, Irritable bowel syndrome wit h diarrhea K58.0 [facility] [address] [address] Aug, Urinary tract infection, sit e not specified N39.0 and Back pain M54.9 [facility] [address] [address] Mar, Abdominal pain, acute, right upper quadrant 789.01 [facility] [address] [place] [id number] [place] [address] Mar, [facility] [address] [address] Mar, Nausea 787.02 and Abdominal pain, acute, right upper quadrant 789.01 [facility] [address] [address] Mar, Nausea 787.02 and Abdominal pain 789.00 [facility] [address] [place] [id number] [place] [address] Mar, Nausea 787.02 [facility] [address] [address] Jan, Amenorrhea 626.0 [facility] [address] [address] Jan, Amenorrhea 626.0 and Obesity 278.00 [facility] [address] [place] [id number] [place] [id number] December, Amenorrhea 626.0 and Cough 7 86.2 [facility] [address] [place] [id number] [place] [phone] Nov, [facility] [address] [id number] [address] [place] [address], [place] [address] Nov, [facility] [address] [id number] [address] [place] [address], [place] [address] May, [facility] [address] [id number] [address] [place] [address], [place] [address] May, [facility] [address] [id number] [address] [place] [address], [place] [address] Mar, [facility] [address] [id number] [address] [place] [address], [place] [address] Mar, [facility] [address] [id number] [address] [place] [address], [place] [address] Mar, [facility] [address] [id number] [address] [place] [address], [place] [address] Mar, [facility] [address] [id number] [address] [place] [address], [place] [address] Mar, [facility] [address] [id number] [address] [place] [address], [place] [address] Mar, [facility] [address] [id number] [address] [place] [address], [place] [address] Mar, [facility] [address] [id number] [address] [place] [address], [place] [address] Mar, [facility] [address] [id number] [address] [place] [address], [place] [address] Mar, [facility] [address] [id number] [address] [place] [address], [place] [address] Mar, [facility] [address] [id number] [address] [place] [address], [place] [address] Mar, [facility] [address] [id number] [address] [place] [address], [place] [address] Mar, [facility] [address] [id number] [address] [place] [address], [place] [address] Mar, [facility] [address] [id number] [address] [place] [address], [place] [address] Mar, [facility] [address] [id number] [address] [place] [address], [place] [address] Mar, [facility] [address] [id number] [address] [place] [address], [place] [address] Feb, [facility] [address] [id number] [address] [place] [address], [place] [address] Feb, [facility] [address] [id number] [address] [place] [address], [place] [address] Feb, [facility] [address] [id number] [address] [place] [address], [place] [address] Feb, [facility] [address] [id number] [address] [place] [address], [place] [address] Feb, [facility] [address] [id number] [address] [place] [address], [place] [address] Feb, [facility] [address] [id number] [address] [place] [address], [place] [address] Feb, [facility] [address] [id number] [address] [place] [address], [place] [address] Feb, [facility] [address] [id number] [address] [place] [address], [place] [address] Feb, [facility] [address] [id number] [address] [place] [address], [place] [address] Feb, [facility] [address] [id number] [address] [place] [address], [place] [address] Feb, [facility] [address] [id number] [address] [place] [address], [place] [address] Feb, [facility] [address] [id number] [address] [place] [address], [place] [address] Feb, [facility] [address] [id number] [facility] [place] [address] 07 Feb, 2014 [facility] [address] [id number] [facility] [place] [address] Feb, [facility] [address] [id number] [facility] [place] [address] Jan, [facility] [address] [id number] [facility] [place] [address] Jan, [facility] [address] [id number] [address] [place] [address], [place] [address] Jan, [facility] [address] [id number] [address] [place] [address], [place] [address] Jan, [facility] [address] [id number] [address] [place] [address], [place] [address] Jan, [facility] [address] [id number] [address] [place] [address], [place] [address] Jan, [facility] [address] [id number] [address] [place] [address], [place] [address] Jan, [facility] [address] [id number] [address] [place] [address], [place] [address] Jan, [facility] [address] [id number] [address] [place] [address], [place] [address] Jan, [facility] [address] [id number] [address] [place] [address], [place] [address] Jan, [facility] [address] [id number] [address] [place] [address], [place] [address] Jan, [facility] [address] [id number] [address] [place] [address], [place] [address] Jan, [facility] [address] [id number] [address] [place] [address], [place] [address] Jan, [facility] [address] [id number] [address] [place] [address], [place] [address] December, [facility] [address] [id number] [facility] [place] [address] December, [facility] [address] [id number] [address] [place] [address], [place] [address] December, [facility] [address] [id number] [address] [place] [address], [place] [address] December, [facility] [address] [id number] [address] [place] [address], [place] [address] December, [facility] [address] [id number] [address] [place] [address], [place] [address] December, [facility] [address] [id number] [address] [place] [address], [place] [address] December, [facility] [address] [id number] [address] [place] [address], [place] [address] December, [facility] [address] [id number] [address] [place] [address], [place] [address] December, [facility] [address] [id number] [address] [place] [address], [place] [address] December, [facility] [address] [id number] [address] [place] [address], [place] [address] December, [facility] [address] [id number] [address] [place] [address], [place] [address] December, [facility] [address] [id number] [address] [place] [address], [place] [address] Nov, [facility] [address] [id number] [address] [place] [address], [place] [address] Nov, [facility] [address] [id number] [address] [place] [address], [place] [address] Oct, [facility] [address] [id number] [address] [place] [address], [place] [address] Oct, [facility] [address] [id number] [address] [place] [address], [place] [address] 20 Oct, 2013 [facility] [address] [id number] [facility] [place] [address] 20 Oct, 2013 [facility] [address] [id number] [facility] [place] [address] 19 Oct, 2013 [facility] [address] [id number] [facility] [place] [address] 19 Oct, 2013 [facility] [address] [id number] [facility] [place] [address] 19 Oct, 2013 [facility] [address] [id number] [address] [place] [address], [place] [address] 19 Oct, 2013 [facility] [address] [id number] [address] [place] [address], [place] [address] 18 Oct, 2013 [facility] [address] [id number] [address] [place] [address], [place] [address] 08 Oct, 2013 [facility] [address] [id number] [address] [place] [address], [place] [address] 07 Oct, 2013 [facility] [address] [id number] [address] [place] [address], [place] [address] 06 Oct, 2013 [facility] [address] [id number] [address] [place] [address], [place] [address] 06 Oct, 2013 [facility] [address] [id number] [address] [place] [address], [place] [address] 05 Oct, 2013 [facility] [address] [id number] [address] [place] [address], [place] [address] 05 Oct, 2013 [facility] [address] [id number] [address] [place] [address], [place] [address] 05 Oct, 2013 [facility] [address] [id number] [address] [place] [address], [place] [address] 05 Oct, 2013 [facility] [address] [id number] [address] [place] [address], [place] [address] 28 Sep, 2013 [facility] [address] [id number] [address] [place] [address], [place] [address] Sep, [facility] [address] [id number] [address] [place] [address], [place] [address] Sep, [facility] [address] [id number] [address] [place] [address], [place] [address] Jun, [facility] [address] [id number] [address] [place] [address], [place] [address] Jun, [facility] [address] [id number] [address] [place] [address], [place] [id number] Jun, [facility] [address] [id number] [address] [place] [address], [place] [id number] Jun, [facility] [address] [id number] [address] [place] [address], [place] [id number] Jun, [facility] [address] [id number] [address] [place] [address], [place] [id number] Jun, [facility] [address] [id number] [address] [place] [address], [place] [id number] May, [facility] [address] [id number] [address] [place] [id number] May, [facility] [address] [id number] [address] [place] [id number] May, [facility] [address] [id number] [address] [place] [id number] May, [facility] [address] [id number] [address] [place] [address], [place] [id number] May, [facility] [address] [id number] [address] [place] [address], [place] [id number] May, [facility] [address] [id number] [address] [place] [id number] Apr, [facility] [address] [id number] [address] [place] [id number] 24 Apr, 2012 [facility] [address] [id number] [address] [place] [address], [place] [id number] 23 Apr, 2012 [facility] [address] [id number] [address] [place] [address], [place] [id number] 20 Apr, 2012 [facility] [address] [id number] [address] [place] [address], [place] [id number] 19 Apr, 2012 [facility] [address] [id number] [address] [place] [address], [place] [id number] 17 Apr, 2012 [facility] [address] [id number] [address] [place] [address], [place] [id number] 13 Apr, 2012 [facility] [address] [id number] [address] [place] [address], [place] [id number] 11 Apr, 2013 [facility] [address] [id number] [address] [place] [address], [place] [id number] 09 Apr, 2013 [facility] [address] [id number] [address] [place] [address], [place] [id number] 05 Apr, 2013 [facility] [address] [id number] [address] [place] [address], [place] [id number] Mar, [facility] [address] [id number] [address] [place] [address], [place] [id number] Nov, [facility] [address] [id number] [address] [place] [address], [place] [id number] Oct, [facility] [address] [id number] [address] [place] [address], [place] [id number] Oct, [facility] [address] [id number] [address] [place] [address], [place] [id number] Sep, [facility] [address] [id number] [address] [place] [address], [place] [id number] May, [facility] [address] [id number] [address] [place] [address], [place] [id number] May, [facility] [address] [id number] [address] [place] [id number] May, [facility] [address] [id number] [address] [place] [id number] May, [facility] [address] [id number] [address] [place] [id number] 24 Apr, 2012 [facility] [address] [id number] [address] [place] [id number] 06 Apr, 2012 [facility] [address] [id number] [address] [place] [id number] Mar, [facility] [address] [id number] [address] [place] [id number] Feb, [facility] [address] [id number] [address] [place] [id number] Jul, [facility] [address] [id number] [address] [place] [id number] Jul, [facility] [address] [id number] [address] [place] [phone] Jul, [facility] [address] [id number] [address] [place] [phone] December, [facility] [address] [id number] [address] [place] [id number] December, [facility] [address] [id number] [address] [place] [id number] Oct, IMMUNIZATIONS No Known Immunizations SOCIAL HISTORY Never Assessed REASON FOR VISIT Anemia-AHarrymanRN, wants to review meds PLAN OF CARE Activity Details Follow Up 3 Months, prn Reason:CHM/Dep ression VITAL SIGNS Height 68 in 2018-03-28 Weight 267.6 lbs 2018-03-28 Temperature 97.7 degrees Fahrenheit 2018-03-28 Heart Rate 78 bpm 2018-03-28 Respiratory Rate 20 2018-03-28 BMI 40.68 kg/m2 2018-03-28 Blood pressure systolic 122 mmHg 2018-03-28 Blood pressure diastolic 76 mmHg 2018-03-28 MEDICATIONS Medication Instructions Dosage Frequency Start Date End Date Duration S tatus Tylenol 325 MG Orally every 4 hrs 1 tablet as needed 4h Active Doxycycline Monohydrate 100 mg Orally twice a day 1 capsule 12h Mar, Mar, 14 days Active Abilify 10 mg Orally Once a day 1 tablet 24h 14 Jun, 2017 90 days Active Propranolol HCl 10 mg Orally twice a day 1 tablet on an empty stoma ch 12h Mar, 30 day(s) Active Ibuprofen 400 MG Orally Three times a day 1 tablet with food or milk as needed 8h Active RESULTS No Results PROCEDURES No Known procedures INSTRUCTIONS MEDICATIONS ADMINISTERED No Known Medications MEDICAL (GENERAL) HISTORY Type Description Date Medical History anemia Medical History asthma Surgical History section x2 Surgical History hernia repair Hospitalization History surgeries Hospitalization History possible gallbladder problems Hospitalization History ER visit for UTI 09/12/15 Hospitalization History dizziness, blackout 12/28/2017
--- OUTSIDE RECORDS SUMMARY | 2019-10-07 05:31 | XMS REPORT ---
Author Author Jailene Francois Organization [facility] Address [address] [place] [address] Care Team Providers Care Machinist Brake Name Role Phone DARYL Francois Unavailable PROBLEMS ALLERGIES No Information ENCOUNTERS IMMUNIZATIONS No Known Immunizations SOCIAL HISTORY No smoking Hx information available REASON FOR VISIT PLAN OF CARE VITAL SIGNS MEDICATIONS Unknown Medications RESULTS No Results PROCEDURES No Known procedures INSTRUCTIONS MEDICATIONS ADMINISTERED No Known Medications MEDICAL (GENERAL) HISTORY
--- OUTSIDE RECORDS SUMMARY | 2019-10-07 05:32 | XMS REPORT ---
Author Author Jailene ALVES Organization [facility] Address [address] [place] [address] Care Team Providers Care Medical Fee Clerk Name Role Phone JOSELYNWANDARYL Unavailable PROBLEMS Type Condition ICD9-CM Code FPN71-NM Code Onset Dates Condition S tatus SNOMED Code Problem Body mass index (BMI) of 40.0-44.9 in adult Z68.41 Active 795564505 Problem Elevated erythrocyte sedimentation rate R70.0 Active 095705891 Problem Morbid (severe) obesity due to excess calories E66 .01 Active 642198920 Problem Desire for Z31.9 Active 214065938 Problem Amenorrhea N91.2 Active 04703332 Problem Generalized anxiety disorder F41.1 A ctive 02024355 Problem Primary insomnia F51.01 Active 397 2004 Problem Iron deficiency anemia secondary to inadequate d ietary iron intake D50.8 Active 955784835 Problem Unspecified mood [affective] disorder F39 Active 99661913 ALLERGIES Substance Reaction Event Type Date Status Lamotrigine rash Drug Allergy Feb, Active Abigail Unknown Drug Allergy Feb, Active ENCOUNTERS Encounter Location Date Diagnosis [facility] [address] [facility] [id number] [address] [place] [id number] Mar, Generalized anxiety disorder F41.1 ; Unspecified mood [affective] disorder F39 ; BMI 40.0-44.9, adult Z68.41 and Myalgia M79.1 [facility] [address] [facility] [id number] [address] [place] [phone] Feb, Elevated erythrocyte sedimen tation rate R70.0 [facility] [address] [facility] [id number] [address] [place] [phone] Feb, Elevated erythrocyte sedimen tation rate R70.0 [facility] [address] [place] [id number] [address] [place] [address] Feb, Unprotected sexual intercour se Z72.51 ; Pain in left knee M25.562 and Pain in joints of right hand M25.541 [facility] [address] [address] Feb, Pain in left knee M25.562 an d Pain in joints of right hand M25.541 [place] [address] [address] Feb, Unspecified mood [affective] disorder F39 ; Generalized anxiety disorder F41.1 ; Pain in joints of right hand M25.541 ; Pain in joints of left hand M25.542 ; Pain in right knee M25.561 ; Pain in left knee M25.562 and Morbid (severe) obesity due to excess calories E66.01 [facility] [address] [address] Jan, Sore throat J02.9 ; Strep th roat J02.0 ; BMI 40.0-44.9, adult Z68.41 ; Dysuria R30.0 and Acute cystitis with hematuria N30.01 [place] [address] [place] [id number] [address] [place] [address] Jan, [place] [address] [address] December, Abnormal MRI of head R93.0 [place] [address] [address] December, Subcutaneous nodules R22.9 ; Syncope, unspecified syncope type R55 ; Abnormal MRI of head R93.0 and Iron deficiency anemia secondary to inadequate dietary iron intake D50.8 [place] [address] [address] December, [place] [address] [address] December, Iron deficiency anemia secon chuck to inadequate dietary iron intake D50.8 and BMI 40.0-44.9, adult Z68.41 [facility] [address] [address] Nov, Gastroenteritis K52.9 [place] [address] [address] Nov, [place] [address] [address] Nov, Bilateral hand swelling M79. 89 ; Amenorrhea N91.2 ; Desire for Z31.9 ; Amenorrhea, unspecified N91.2 ; Bilateral swelling of feet M79.89 ; Rash R21 and Iron deficiency anemia, unspecified iron deficiency anemia type D50.9 [place] [address] [address] Nov, Bilateral hand swelling M79. 89 ; Bilateral swelling of feet M79.89 and Rash R21 [place] [address] [address] Sep, Desire for Z31.9 a nd Amenorrhea N91.2 [facility] [address] [address] Aug, Scabies B86 [place] [address] [address] Aug, Amenorrhea, unspecified N91. 2 [place] [address] [address] Aug, Amenorrhea, unspecified N91. 2 [place] [address] [address] Aug, Amenorrhea N91.2 and Iron de ficiency anemia, unspecified iron deficiency anemia type D50.9 [place] [address] [address] Aug, Iron deficiency anemia secon chuck to inadequate dietary iron intake D50.8 ; Amenorrhea N91.2 ; Generalized anxiety disorder F41.1 ; Unspecified mood [affective] disorder F39 and Nausea R11.0 [facility] [address] [facility] [id number] [address] [place] [address] Jul, Non-intractable vomiting wit h nausea, unspecified vomiting type R11.2 and Pleurisy R09.1 [facility] [address] [place] [id number] [address] [place] [address] Jul, [facility] [address] [place] [id number] [address] [place] [id number] Jun, Unspecified mood [affective] disorder F39 [place] [address] [place] [id number] [place] [address] Jun, Unspecified mood [affective] disorder F39 and Generalized anxiety disorder F41.1 [facility] [id number] [place] [address] May, Bilious vomiting with nausea R11.14 [facility] [address] [place] [id number] [address] [place] [address] May, Unspecified mood [affective] disorder F39 ; Generalized anxiety disorder F41.1 and Iron deficiency anemia, unspecified iron deficiency anemia type D50.9 [facility] [address] [place] [id number] [address] [place] [address] Apr, Unspecified mood [affective] disorder F39 [facility] [address] [place] [id number] [address] [place] [address] Apr, Iron deficiency anemia, unsp ecified iron deficiency anemia type D50.9 [place] [address] [place] [id number] [address] [place] [address] Apr, Iron deficiency anemia, unsp ecified iron deficiency anemia type D50.9 [facility] [address] [place] [id number] [address] [place] [address] Apr, Unspecified mood [affective] disorder F39 [facility] [address] [facility] [id number] [address] [place] [id number] 07 Apr, 2017 Abnormal CBC R79.89 [facility] [address] [facility] [id number] [address] [place] [id number] 07 Apr, 2017 Abnormal CBC R79.89 [facility] [address] [facility] [id number] [address] [place] [id number] 05 Apr, 2017 Encounter to establish care with new doctor Z76.89 ; Unspecified mood [affective] disorder F39 and Primary insomnia F51.01 [facility] [address] [facility] [id number] [address] [place] [address] Mar, Unspecified mood [affective] disorder F39 and Generalized anxiety disorder F41.1 [facility] [address] [facility] [id number] [address] [place] [id number] Mar, Sore throat J02.9 and Strep pharyngitis J02.0 [facility] [id number] [place] [id number] Feb, Dental examination Z01.20 [facility] [address] [id number] Jan, Encounter for dental examina tion Z01.20 [facility] [address] [facility] [id number] [address] [place] [id number] Nov, Fever, unspecified R50.9 and Acute nasopharyngitis J00 [facility] [address] [facility] [id number] [address] [place] [id number] 18 Sep, 2015 Abdominal pain, acute, right upper quadrant 789.01 [facility] [address] [facility] [id number] [address] [place] [id number] 10 Sep, 2015 [facility] [address] [facility] [id number] [address] [place] [address] Aug, Irritable bowel syndrome wit h diarrhea K58.0 [facility] [address] [place] [id number] [address] [place] [phone] Aug, Urinary tract infection, sit e not specified N39.0 and Back pain M54.9 [facility] [address] [place] [id number] [address] [place] [address] Mar, Abdominal pain, acute, right upper quadrant 789.01 [facility] [address] [address] Mar, [facility] [address] [address] Mar, Nausea 787.02 and Abdominal pain, acute, right upper quadrant 789.01 [facility] [address] [address] Mar, Nausea 787.02 and Abdominal pain 789.00 [facility] [address] [address] Mar, Nausea 787.02 [facility] [address] [address] Jan, Amenorrhea 626.0 [place] [address] [address] Jan, Amenorrhea 626.0 and Obesity 278.00 [facility] [address] [address] December, Amenorrhea 626.0 and Cough 7 86.2 [facility] [address] [place] [id number] [address] [place] [address] Nov, [facility] [address] [address] Nov, [facility] [address] [place] [id number] [place] [address] May, [facility] [address] [address] May, [facility] [address] [id number] [address] [place] [address], [place] [address] Mar, [facility] [address] [id number] [address] [place] [address], [place] [address] Mar, [facility] [address] [id number] [address] [place] [address], [place] [address] Mar, [facility] [address] [id number] [address] [place] [address], [place] [address] Mar, [facility] [address] [id number] [address] [place] [address], [place] [address] Mar, [facility] [address] [id number] [address] [place] [address], [place] [address] Mar, [facility] [address] [id number] [address] [place] [address], [place] [address] Mar, [facility] [address] [id number] [address] [place] [address], [place] [address] Mar, [facility] [address] [id number] [address] [place] [address], [place] [id number] Mar, [facility] [address] [id number] [address] [place] [address], [place] [phone] Mar, [facility] [address] [id number] [address] [place] [address], [place] [phone] Mar, [facility] [address] [id number] [address] [place] [address], [place] [address] Mar, [facility] [address] [id number] [address] [place] [address], [place] [address] Mar, [facility] [address] [id number] [address] [place] [address], [place] [address] Mar, [facility] [address] [id number] [address] [place] [address], [place] [address] Mar, [facility] [address] [id number] [address] [place] [address], [place] [phone] Feb, 2013 [facility] [address] [id number] [address] [place] [address], [place] [address] Feb, 2013 [facility] [address] [id number] [address] [place] [address], [place] [address] Feb, 2013 [facility] [address] [id number] [address] [place] [address], [place] [address] Feb, 2013 [facility] [address] [id number] [address] [place] [address], [place] [address] Feb, 2013 [facility] [address] [id number] [address] [place] [address], [place] [address] Feb, 2013 [facility] [address] [id number] [address] [place] [address], [place] [address] Feb, 2013 [facility] [address] [id number] [address] [place] [address], [place] [id number] Feb, 2013 [facility] [address] [id number] [address] [place] [address], [place] [id number] Feb, 2013 [facility] [address] [id number] [address] [place] [address], [place] [address] Feb, 2013 [facility] [address] [id number] [address] [place] [address], [place] [address] Feb, 2013 [facility] [address] [id number] [address] [place] [address], [place] [address] Feb, 2013 [facility] [address] [id number] [address] [place] [address], [place] [address] Feb, 2013 [facility] [address] [id number] [address] [place] [address], [place] [address] Feb, 2013 [facility] [address] [id number] [address] [place] [address], [place] [address] Feb, 2013 [facility] [address] [id number] [address] [place] [address], [place] [address] Jan, [facility] [address] [id number] [facility] [place] [address] Jan, [facility] [address] [id number] [facility] [place] [address] Jan, [facility] [address] [id number] [facility] [place] [address] Jan, [facility] [address] [id number] [facility] [place] [address] Jan, [facility] [address] [id number] [facility] [place] [address] Jan, [facility] [address] [id number] [facility] [place] [address] Jan, [facility] [address] [id number] [address] [place] [address], [place] [address] Jan, [facility] [address] [id number] [address] [place] [address], [place] [address] Jan, [facility] [address] [id number] [address] [place] [address], [place] [address] Jan, [facility] [address] [id number] [address] [place] [address], [place] [address] Jan, [facility] [address] [id number] [address] [place] [address], [place] [address] Jan, [facility] [address] [id number] [address] [place] [address], [place] [address] Jan, [facility] [address] [id number] [address] [place] [address], [place] [address] December, [facility] [address] [id number] [address] [place] [address], [place] [address] December, [facility] [address] [id number] [address] [place] [address], [place] [address] December, [facility] [address] [id number] [address] [place] [address], [place] [address] December, [facility] [address] [id number] [facility] [place] [address] December, [facility] [address] [id number] [facility] [place] [address] December, [facility] [address] [id number] [address] [place] [address], [place] [address] December, [facility] [address] [id number] [address] [place] [address], [place] [address] December, [facility] [address] [id number] [address] [place] [address], [place] [address] December, [facility] [address] [id number] [address] [place] [address], [place] [address] December, [facility] [address] [id number] [address] [place] [address], [place] [address] December, [facility] [address] [id number] [address] [place] [address], [place] [address] December, [facility] [address] [id number] [address] [place] [address], [place] [address] Nov, [facility] [address] [id number] [address] [place] [address], [place] [address] Nov, [facility] [address] [id number] [address] [place] [address], [place] [address] Oct, [facility] [address] [id number] [address] [place] [address], [place] [address] Oct, [facility] [address] [id number] [address] [place] [address], [place] [address] Oct, [facility] [address] [id number] [address] [place] [address], [place] [address] Oct, [facility] [address] [id number] [address] [place] [address], [place] [address] Oct, [facility] [address] [id number] [address] [place] [address], [place] [address] 19 Oct, 2013 [facility] [address] [id number] [facility] [place] [address] 19 Oct, 2013 [facility] [address] [id number] [facility] [place] [address] 19 Oct, 2013 [facility] [address] [id number] [facility] [place] [address] 18 Oct, 2013 [facility] [address] [id number] [address] [place] [address], [place] [address] 08 Oct, 2013 [facility] [address] [id number] [address] [place] [address], [place] [address] 07 Oct, 2013 [facility] [address] [id number] [address] [place] [address], [place] [address] 06 Oct, 2013 [facility] [address] [id number] [address] [place] [address], [place] [address] 06 Oct, 2013 [facility] [address] [id number] [address] [place] [address], [place] [address] 05 Oct, 2013 [facility] [address] [id number] [address] [place] [address], [place] [address] 05 Oct, 2013 [facility] [address] [id number] [address] [place] [address], [place] [address] Oct, [facility] [address] [id number] [address] [place] [address], [place] [address] 05 Oct, 2013 [facility] [address] [id number] [address] [place] [address], [place] [address] Sep, [facility] [address] [id number] [address] [place] [address], [place] [address] Sep, [facility] [address] [id number] [address] [place] [address], [place] [address] Sep, [facility] [address] [id number] [address] [place] [address], [place] [address] Jun, [facility] [address] [id number] [address] [place] [address], [place] [address] Jun, [facility] [address] [id number] [address] [place] [address], [place] [address] Jun, [facility] [address] [id number] [address] [place] [address], [place] [address] Jun, [facility] [address] [id number] [address] [place] [address], [place] [address] Jun, [facility] [address] [id number] [address] [place] [address], [place] [phone] Jun, [facility] [address] [id number] [address] [place] [address], [place] [address] May, [facility] [address] [id number] [address] [place] [address], [place] [phone] May, [facility] [address] [id number] [address] [place] [address], [place] [address] May, [facility] [address] [id number] [address] [place] [address], [place] [address] May, [facility] [address] [id number] [address] [place] [phone] May, [facility] [address] [id number] [address] [place] [address], [place] [address] May, [facility] [address] [id number] [address] [place] [id number] Apr, [facility] [address] [id number] [address] [place] [address], [place] [address] 24 Apr, 2013 [facility] [address] [id number] [address] [place] [address], [place] [address] 23 Apr, 2013 [facility] [address] [id number] [address] [place] [address], [place] [address] 20 Apr, 2013 [facility] [address] [id number] [address] [place] [id number] 19 Apr, 2013 [facility] [address] [id number] [address] [place] [address], [place] [address] 17 Apr, 2012 [facility] [address] [id number] [address] [place] [address], [place] [address] 13 Apr, 2013 [facility] [address] [id number] [address] [place] [address], [place] [address] 11 Apr, 2013 [facility] [address] [id number] [address] [place] [address], [place] [address] 09 Apr, 2013 [facility] [address] [id number] [address] [place] [address], [place] [address] 05 Apr, 2013 [facility] [address] [id number] [address] [place] [address], [place] [address] Mar, [facility] [address] [id number] [address] [place] [address], [place] [address] Nov, [facility] [address] [id number] [address] [place] [address], [place] [address] Oct, [facility] [address] [id number] [address] [place] [address], [place] [phone] Oct, [facility] [address] [id number] [address] [place] [address], [place] [phone] Sep, [facility] [address] [id number] [address] [place] [address], [place] [phone] May, [facility] [address] [id number] [address] [place] [address], [place] [id number] 27 May, 2012 [facility] [address] [id number] [address] [place] [address], [place] [phone] May, [facility] [address] [id number] [address] [place] [address], [place] [phone] May, [facility] [address] [id number] [address] [place] [address], [place] [id number] 24 Apr, 2012 [facility] [address] [id number] [address] [place] [phone] Apr, [facility] [address] [id number] [address] [place] [phone] Mar, [facility] [address] [id number] [address] [place] [phone] Feb, [facility] [address] [id number] [address] [place] [phone] Jul, [facility] [address] [id number] [address] [place] [phone] Jul, [facility] [address] [id number] [address] [place] [phone] Jul, [facility] [address] [id number] [address] [place] [phone] December, [facility] [address] [id number] [address] [place] [phone] December, [facility] [address] [id number] [address] [place] [phone] Oct, IMMUNIZATIONS No Known Immunizations SOCIAL HISTORY Never Assessed REASON FOR VISIT Swelling in both hands and both feet x 3-4 months. Pain in joints x 3 weeks, ot c medication has not alleviated pain. hersonremtito PLAN OF CARE Activity Details Follow Up 3 Months, prn Reason:CHM/Dep ression VITAL SIGNS Height 68 in 2018-02-25 Weight 272.8 lbs 2018-02-25 Temperature 98.1 degrees Fahrenheit 2018-02-25 Heart Rate 92 bpm 2018-02-25 Respiratory Rate 20 2018-02-25 BMI 41.47 kg/m2 2018-02-25 Blood pressure systolic 120 mmHg 2018-02-25 Blood pressure diastolic 80 mmHg 2018-02-25 MEDICATIONS Medication Instructions Dosage Frequency Start Date End Date Duration S tejinderus Tylenol 325 MG Orally every 4 hrs 1 tablet as needed 4h Active Abilify 10 mg Orally Once a day 1 tablet 24h Jun, 90 days Active BusPIRone HCl 7.5 MG Orally 3 times a day 1 tablet 8h Aug, 14 days Active PredniSONE 10 mg Orally Once a day 4 tabs x 4 days, 3 t abs x 4 days, 2 tabs x 4 days then 1 tab x 4 days 24h Feb, Feb, 16 days Act delmi Ibuprofen 400 MG Orally Three times a day 1 tablet with food or milk as needed 8h Active RESULTS Name Result Date Reference Range ESR/SED RATE 2018-02-25 SED RATE BY MODIFIED WESTERGREN 36 < OR = 20 CRP 2018-02-25 C-REACTIVE PROTEIN 28.3 <8.0 RA (RHEUMATOID) FACTOR 2018-02-25 RHEUMATOID FACTOR <14 <14 PROCEDURES Procedure Date Ordered Result Body Site [facility] February 25, 2018 X-RAY EXAM OF HAND February 25, 2018 VENIPUNCT, ROUTINE* February 25, 2018 X-RAY EXAM OF KNEE, 3 February 25, 2018 INSTRUCTIONS MEDICATIONS ADMINISTERED No Known Medications MEDICAL (GENERAL) HISTORY Type Description Date Medical History anemia Medical History asthma Surgical History section x2 Surgical History hernia repair Hospitalization History surgeries Hospitalization History possible gallbladder problems Hospitalization History ER visit for UTI 09/12/15 Hospitalization History dizziness, blackout 12/28/2017
--- OUTSIDE RECORDS SUMMARY | 2019-10-07 05:32 | XMS REPORT ---
Author Author Jailene ALVES Organization [facility] Address [address] [place] [address] Care Team Providers Care Core Rescuer Name Role Phone ALVESWANDARYL Unavailable PROBLEMS Type Condition ICD9-CM Code [id number] Code Onset Dates Condition S tatus SNOMED Code Problem Body mass index (BMI) of 40.0-44.9 in adult Z68.41 Active 057620309 Problem Elevated erythrocyte sedimentation rate R70.0 Active 042033433 Problem Morbid (severe) obesity due to excess calories E66 .01 Active 738596408 Problem Desire for Z31.9 Active 578081859 Problem Amenorrhea N91.2 Active 49852165 Problem Generalized anxiety disorder F41.1 A ctive 49379357 Problem Primary insomnia F51.01 Active 397 2004 Problem Iron deficiency anemia secondary to inadequate d ietary iron intake D50.8 Active 355891284 Problem Unspecified mood [affective] disorder F39 Active 93590967 ALLERGIES No Information ENCOUNTERS Encounter Location Date Diagnosis [facility] [address] [facility] [place] [id number] [address] [place] [phone] Mar, Generalized anxiety disorder F41.1 ; Unspecified mood [affective] disorder F39 ; BMI 40.0-44.9, adult Z68.41 and Myalgia M79.1 [facility] [address] [facility] [place] [id number] [address] [place] [phone] Feb, Elevated erythrocyte sedimen tation rate R70.0 [facility] [address] [facility] [place] [id number] [address] [place] [phone] Feb, Elevated erythrocyte sedimen tation rate R70.0 [facility] [address] [facility] [place] [id number] [address] [place] [phone] Feb, Unprotected sexual intercour se Z72.51 ; Pain in left knee M25.562 and Pain in joints of right hand M25.541 [facility] [address] [facility] [place] [id number] [address] [place] [phone] Feb, Pain in left knee M25.562 an d Pain in joints of right hand M25.541 [facility] [address] [place] [id number] [place] [phone] Feb, Unspecified mood [affective] disorder F39 ; Generalized anxiety disorder F41.1 ; Pain in joints of right hand M25.541 ; Pain in joints of left hand M25.542 ; Pain in right knee M25.561 ; Pain in left knee M25.562 and Morbid (severe) obesity due to excess calories E66.01 [facility] [address] [id number] [address] [place] [phone] Jan, Sore throat J02.9 ; Strep th roat J02.0 ; BMI 40.0-44.9, adult Z68.41 ; Dysuria R30.0 and Acute cystitis with hematuria N30.01 [place] [address] [address] Jan, [place] [address] [place] [id number] [place] [phone] December, Abnormal MRI of head R93.0 [place] [address] [address] December, Subcutaneous nodules R22.9 ; Syncope, unspecified syncope type R55 ; Abnormal MRI of head R93.0 and Iron deficiency anemia secondary to inadequate dietary iron intake D50.8 [place] [address] [place] [id number] [place] [phone] December, [place] [address] [place] [id number] [place] [phone] December, Iron deficiency anemia secon chuck to inadequate dietary iron intake D50.8 and BMI 40.0-44.9, adult Z68.41 [facility] [address] [place] [id number] [place] [phone] Nov, Gastroenteritis K52.9 [place] [address] [address] Nov, [place] [address] [address] Nov, Bilateral hand swelling M79. 89 ; Amenorrhea N91.2 ; Desire for Z31.9 ; Amenorrhea, unspecified N91.2 ; Bilateral swelling of feet M79.89 ; Rash R21 and Iron deficiency anemia, unspecified iron deficiency anemia type D50.9 [place] [address] [address] Nov, Bilateral hand swelling M79. 89 ; Bilateral swelling of feet M79.89 and Rash R21 [place] [address] [address] Sep, Desire for Z31.9 a nd Amenorrhea N91.2 [facility] [address] [address] Aug, Scabies B86 [place] [address] [address] Aug, Amenorrhea, unspecified N91. 2 [place] [address] [address] Aug, Amenorrhea, unspecified N91. 2 [place] [address] [place] [id number] [place] [phone] Aug, Amenorrhea N91.2 and Iron de ficiency anemia, unspecified iron deficiency anemia type D50.9 [place] [address] [place] [id number] [place] [phone] Aug, Iron deficiency anemia secon chuck to inadequate dietary iron intake D50.8 ; Amenorrhea N91.2 ; Generalized anxiety disorder F41.1 ; Unspecified mood [affective] disorder F39 and Nausea R11.0 [facility] [address] [id number] [address] [place] [phone] Jul, Non-intractable vomiting wit h nausea, unspecified vomiting type R11.2 and Pleurisy R09.1 [facility] [address] [id number] [address] [place] [id number] Jul, [facility] [address] [id number] [address] [place] [phone] Jun, Unspecified mood [affective] disorder F39 [place] [address] [facility] [place] [id number] [address] [place] [phone] Jun, Unspecified mood [affective] disorder F39 and Generalized anxiety disorder F41.1 [facility] [address] [facility] [place] [id number] [address] [place] [phone] May, Bilious vomiting with nausea R11.14 [facility] [address] [id number] [address] [place] [id number] May, Unspecified mood [affective] disorder F39 ; Generalized anxiety disorder F41.1 and Iron deficiency anemia, unspecified iron deficiency anemia type D50.9 [facility] [address] [facility] [place] [id number] [address] [place] [phone] Apr, Unspecified mood [affective] disorder F39 [facility] [address] [facility] [place] [id number] [address] [place] [address] Apr, Iron deficiency anemia, unsp ecified iron deficiency anemia type D50.9 [facility] [address] [id number] [address] [place] [id number] Apr, Iron deficiency anemia, unsp ecified iron deficiency anemia type D50.9 [facility] [address] [id number] [address] [place] [phone] Apr, Unspecified mood [affective] disorder F39 [facility] [address] [facility] [place] [id number] [address] [place] [phone] 07 Apr, 2017 Abnormal CBC R79.89 [facility] [address] [facility] [place] [id number] [address] [place] [phone] Apr, Abnormal CBC R79.89 [facility] [address] [facility] [place] [id number] [address] [place] [phone] 05 Apr, 2017 Encounter to establish care with new doctor Z76.89 ; Unspecified mood [affective] disorder F39 and Primary insomnia F51.01 [facility] [address] [facility] [place] [id number] [address] [place] [address] Mar, Unspecified mood [affective] disorder F39 and Generalized anxiety disorder F41.1 [facility] [address] [facility] [place] [id number] [address] [place] [address] Mar, Sore throat J02.9 and Strep pharyngitis J02.0 [facility] [id number] [place] [id number] Feb, Dental examination Z01.20 [facility] [address] [place] [id number] [place] [id number] Jan, Encounter for dental examina tion Z01.20 [facility] [address] [place] [id number] [place] [phone] Nov, Fever, unspecified R50.9 and Acute nasopharyngitis J00 [facility] [address] [place] [id number] [address] [place] [id number] 18 Sep, 2015 Abdominal pain, acute, right upper quadrant 789.01 [facility] [address] [facility] [place] [id number] [address] [place] [phone] Sep, [facility] [address] [facility] [place] [id number] [address] [place] [address] Aug, Irritable bowel syndrome wit h diarrhea K58.0 [facility] [address] [facility] [place] [id number] [address] [place] [phone] Aug, Urinary tract infection, sit e not specified N39.0 and Back pain M54.9 [facility] [address] [facility] [place] [id number] [address] [place] [phone] Mar, Abdominal pain, acute, right upper quadrant 789.01 [facility] [address] [facility] [place] [id number] [address] [place] [address] Mar, [facility] [address] [place] [id number] [place] [phone] Mar, Nausea 787.02 and Abdominal pain, acute, right upper quadrant 789.01 [facility] [address] [facility] [place] [id number] [address] [place] [phone] Mar, Nausea 787.02 and Abdominal pain 789.00 [facility] [address] [place] [id number] [place] [address] Mar, Nausea 787.02 [facility] [address] [place] [id number] [place] [phone] Jan, Amenorrhea 626.0 [facility] [address] [place] [id number] [place] [id number] Jan, Amenorrhea 626.0 and Obesity 278.00 [facility] [address] [place] [id number] [place] [phone] December, Amenorrhea 626.0 and Cough 7 86.2 [facility] [address] [place] [id number] [place] [id number] Nov, [facility] [address] [facility] [place] [id number] [address] [place] [phone] Nov, [facility] [address] [place] [id number] [place] [phone] May, [facility] [address] [place] [id number] [place] [phone] May, [facility] [address] [place] [id number] [place] [phone] Mar, [facility] [address] [id number] [facility] [place] [id number] Mar, [facility] [address] [id number] [facility] [place] [id number] Mar, [facility] [address] [id number] [facility] [place] [id number] Mar, [facility] [address] [id number] [address] [place] [address], [place] [id number] Mar, [facility] [address] [id number] [address] [place] [address], [place] [id number] Mar, [facility] [address] [id number] [address] [place] [address], [place] [id number] Mar, [facility] [address] [id number] [address] [place] [address], [place] [id number] Mar, [facility] [address] [id number] [address] [place] [address], [place] [id number] Mar, [facility] [address] [id number] [address] [place] [address], [place] [id number] Mar, [facility] [address] [id number] [address] [place] [address], [place] [id number] Mar, [facility] [address] [id number] [address] [place] [address], [place] [id number] Mar, [facility] [address] [id number] [address] [place] [address], [place] [id number] Mar, [facility] [address] [id number] [address] [place] [address], [place] [id number] Mar, [facility] [address] [id number] [address] [place] [address], [place] [id number] Mar, [facility] [address] [id number] [address] [place] [address], [place] [id number] Feb, [facility] [address] [id number] [facility] [place] [id number] Feb, 2013 [facility] [address] [id number] [address] [place] [address], [place] [id number] Feb, 2013 [facility] [address] [id number] [address] [place] [address], [place] [id number] Feb, [facility] [address] [id number] [address] [place] [address], [place] [id number] Feb, 2013 [facility] [address] [id number] [address] [place] [address], [place] [id number] Feb, 2013 [facility] [address] [id number] [address] [place] [address], [place] [id number] Feb, [facility] [address] [id number] [address] [place] [address], [place] [id number] Feb, [facility] [address] [id number] [address] [place] [address], [place] [id number] Feb, 2013 [facility] [address] [id number] [address] [place] [address], [place] [id number] Feb, 2013 [facility] [address] [id number] [address] [place] [address], [place] [id number] Feb, 2013 [facility] [address] [id number] [address] [place] [address], [place] [id number] Feb, [facility] [address] [id number] [address] [place] [address], [place] [id number] Feb, [facility] [address] [id number] [address] [place] [address], [place] [id number] Feb, [facility] [address] [id number] [address] [place] [address], [place] [id number] Feb, [facility] [address] [id number] [address] [place] [address], [place] [id number] Jan, [facility] [address] [id number] [address] [place] [address], [place] [id number] Jan, [facility] [address] [id number] [facility] [place] [id number] Jan, [facility] [address] [id number] [facility] [place] [id number] Jan, [facility] [address] [id number] [facility] [place] [id number] Jan, [facility] [address] [id number] [facility] [place] [id number] Jan, [facility] [address] [id number] [facility] [place] [id number] Jan, [facility] [address] [id number] [address] [place] [address], [place] [id number] Jan, [facility] [address] [id number] [address] [place] [address], [place] [id number] Jan, [facility] [address] [id number] [address] [place] [address], [place] [id number] Jan, [facility] [address] [id number] [address] [place] [address], [place] [id number] Jan, [facility] [address] [id number] [address] [place] [address], [place] [id number] Jan, [facility] [address] [id number] [address] [place] [address], [place] [id number] Jan, [facility] [address] [id number] [address] [place] [address], [place] [id number] December, [facility] [address] [id number] [address] [place] [address], [place] [id number] December, [facility] [address] [id number] [address] [place] [address], [place] [id number] December, [facility] [address] [id number] [address] [place] [address], [place] [id number] December, [facility] [address] [id number] [address] [place] [address], [place] [id number] December, [facility] [address] [id number] [address] [place] [address], [place] [id number] December, [facility] [address] [id number] [address] [place] [address], [place] [id number] December, [facility] [address] [id number] [address] [place] [address], [place] [id number] December, [facility] [address] [id number] [address] [place] [address], [place] [id number] December, [facility] [address] [id number] [address] [place] [address], [place] [id number] December, [facility] [address] [id number] [address] [place] [address], [place] [id number] December, [facility] [address] [id number] [address] [place] [address], [place] [id number] December, [facility] [address] [id number] [address] [place] [address], [place] [id number] Nov, [facility] [address] [id number] [address] [place] [address], [place] [id number] Nov, [facility] [address] [id number] [address] [place] [address], [place] [id number] Oct, [facility] [address] [id number] [address] [place] [address], [place] [id number] Oct, [facility] [address] [id number] [address] [place] [address], [place] [id number] Oct, [facility] [address] [id number] [address] [place] [address], [place] [id number] Oct, [facility] [address] [id number] [address] [place] [address], [place] [id number] Oct, [facility] [address] [id number] [address] [place] [address], [place] [id number] Oct, [facility] [address] [id number] [facility] [place] [id number] 19 Oct, 2013 [facility] [address] [id number] [address] [place] [address], [place] [id number] 19 Oct, 2013 [facility] [address] [id number] [facility] [place] [id number] 18 Oct, 2013 [facility] [address] [id number] [address] [place] [address], [place] [id number] 08 Oct, 2013 [facility] [address] [id number] [address] [place] [address], [place] [id number] 07 Oct, 2013 [facility] [address] [id number] [address] [place] [address], [place] [id number] 06 Oct, 2013 [facility] [address] [id number] [address] [place] [address], [place] [id number] 06 Oct, 2013 [facility] [address] [id number] [address] [place] [address], [place] [id number] 05 Oct, 2013 [facility] [address] [id number] [address] [place] [address], [place] [id number] 05 Oct, 2013 [facility] [address] [id number] [address] [place] [address], [place] [id number] Oct, [facility] [address] [id number] [address] [place] [address], [place] [id number] Oct, [facility] [address] [id number] [address] [place] [address], [place] [id number] Sep, [facility] [address] [id number] [address] [place] [address], [place] [id number] Sep, [facility] [address] [id number] [address] [place] [address], [place] [id number] Sep, [facility] [address] [id number] [address] [place] [address], [place] [id number] Jun, [facility] [address] [id number] [address] [place] [address], [place] [id number] Jun, [facility] [address] [id number] [address] [place] [address], [place] [id number] Jun, [facility] [address] [id number] [address] [place] [address], [place] [id number] Jun, [facility] [address] [id number] [address] [place] [address], [place] [id number] Jun, [facility] [address] [id number] [address] [place] [address], [place] [id number] Jun, [facility] [address] [id number] [address] [place] [address], [place] [id number] May, [facility] [address] [id number] [address] [place] [address], [place] [id number] May, [facility] [address] [id number] [address] [place] [address], [place] [id number] May, [facility] [address] [id number] [address] [place] [address], [place] [id number] May, [facility] [address] [id number] [address] [place] [address], [place] [id number] May, [facility] [address] [id number] [address] [place] [id number] May, [facility] [address] [id number] [address] [place] [address], [place] [id number] 26 Apr, 2013 [facility] [address] [id number] [address] [place] [id number] 24 Apr, 2013 [facility] [address] [id number] [address] [place] [address], [place] [id number] 23 Apr, 2013 [facility] [address] [id number] [address] [place] [address], [place] [id number] 20 Apr, 2013 [facility] [address] [id number] [address] [place] [address], [place] [id number] 19 Apr, 2013 [facility] [address] [id number] [address] [place] [address], [place] [id number] 17 Sep, 2012 [facility] [address] [id number] [address] [place] [address], [place] [id number] 13 Sep, 2012 [facility] [address] [id number] [address] [place] [address], [place] [id number] 11 Apr, 2012 [facility] [address] [id number] [address] [place] [address], [place] [id number] 09 Apr, 2012 [facility] [address] [id number] [address] [place] [address], [place] [id number] 05 Apr, 2012 [facility] [address] [id number] [address] [place] [address], [place] [id number] Mar, [facility] [address] [id number] [address] [place] [address], [place] [id number] Nov, [facility] [address] [id number] [address] [place] [address], [place] [id number] Oct, [facility] [address] [id number] [address] [place] [address], [place] [id number] Oct, [facility] [address] [id number] [address] [place] [address], [place] [id number] Sep, [facility] [address] [id number] [address] [place] [address], [place] [id number] May, [facility] [address] [id number] [address] [place] [address], [place] [id number] 27 May, 2012 [facility] [address] [id number] [address] [place] [address], [place] [id number] May, [facility] [address] [id number] [address] [place] [address], [place] [id number] 11 May, 2012 [facility] [address] [id number] [address] [place] [address], [place] [id number] 24 Apr, 2012 [facility] [address] [id number] [address] [place] [address], [place] [id number] 06 Apr, 2012 [facility] [address] [id number] [address] [place] [id number] Mar, [facility] [address] [id number] [address] [place] [id number] Feb, [facility] [address] [id number] [address] [place] [id number] Jul, [facility] [address] [id number] [address] [place] [id number] Jul, [facility] [address] [id number] [address] [place] [id number] Jul, [facility] [facility] [address] [id number] [address] [place] [id number] December, [facility] [address] [id number] [address] [place] [phone] December, [facility] [address] [id number] [address] [place] [id number] Oct, IMMUNIZATIONS No Known Immunizations SOCIAL HISTORY [...]
--- OUTSIDE RECORDS SUMMARY | 2019-10-07 05:32 | XMS REPORT ---
Author Author Jailene ALVES Organization [facility] Address [address] [place] [address] Care Team Providers Care Lead Burner Helper Name Role Phone ALVESWANDARYL Unavailable PROBLEMS Type Condition ICD9-CM Code [id number] Code Onset Dates Condition S tatus SNOMED Code Problem Body mass index (BMI) of 40.0-44.9 in adult Z68.41 Active 141919719 Problem Elevated erythrocyte sedimentation rate R70.0 Active 996921253 Problem Morbid (severe) obesity due to excess calories E66 .01 Active 712324020 Problem Desire for Z31.9 Active 383114698 Problem Amenorrhea N91.2 Active 05942051 Problem Generalized anxiety disorder F41.1 A ctive 47853144 Problem Primary insomnia F51.01 Active 397 2004 Problem Iron deficiency anemia secondary to inadequate d ietary iron intake D50.8 Active 112663453 Problem Unspecified mood [affective] disorder F39 Active 84436209 ALLERGIES No Information ENCOUNTERS Encounter Location Date Diagnosis [facility] [address] [facility] [id number] [address] [place] [id number] Mar, Generalized anxiety disorder F41.1 ; Unspecified mood [affective] disorder F39 ; BMI 40.0-44.9, adult Z68.41 and Myalgia M79.1 [facility] [address] [facility] [id number] [address] [place] [address] Feb, Elevated erythrocyte sedimen tation rate R70.0 [facility] [address] [facility] [id number] [address] [place] [address] Feb, Elevated erythrocyte sedimen tation rate R70.0 [facility] [address] [facility] [id number] [address] [place] [address] Feb, Unprotected sexual intercour se Z72.51 ; Pain in left knee M25.562 and Pain in joints of right hand M25.541 [facility] [address] [facility] [id number] [address] [place] [id number] Feb, Pain in left knee M25.562 an d Pain in joints of right hand M25.541 [facility] [address] [place] [id number] [place] [address] Feb, Unspecified mood [affective] disorder F39 ; Generalized anxiety disorder F41.1 ; Pain in joints of right hand M25.541 ; Pain in joints of left hand M25.542 ; Pain in right knee M25.561 ; Pain in left knee M25.562 and Morbid (severe) obesity due to excess calories E66.01 [facility] [address] [place] [id number] [address] [place] [address] Jan, Sore throat J02.9 ; Strep th roat J02.0 ; BMI 40.0-44.9, adult Z68.41 ; Dysuria R30.0 and Acute cystitis with hematuria N30.01 [place] [address] [address] Jan, [place] [address] [place] [id number] [place] [address] December, Abnormal MRI of head R93.0 [place] [address] [address] December, Subcutaneous nodules R22.9 ; Syncope, unspecified syncope type R55 ; Abnormal MRI of head R93.0 and Iron deficiency anemia secondary to inadequate dietary iron intake D50.8 [place] [address] [place] [id number] [address] [place] [phone] December, [place] [address] [place] [id number] [place] [address] December, Iron deficiency anemia secon chuck to inadequate dietary iron intake D50.8 and BMI 40.0-44.9, adult Z68.41 [facility] [address] [place] [id number] [address] [place] [address] Nov, Gastroenteritis K52.9 [place] [address] [address] Nov, [place] [address] [address] Nov, Bilateral hand swelling M79. 89 ; Amenorrhea N91.2 ; Desire for Z31.9 ; Amenorrhea, unspecified N91.2 ; Bilateral swelling of feet M79.89 ; Rash R21 and Iron deficiency anemia, unspecified iron deficiency anemia type D50.9 [place] [address] [address] Nov, Bilateral hand swelling M79. 89 ; Bilateral swelling of feet M79.89 and Rash R21 [place] [address] [address] Sep, Desire for Z31.9 a nd Amenorrhea N91.2 [facility] IN [facility] [address] [address] Aug, Scabies B86 [place] [address] [address] Aug, Amenorrhea, unspecified N91. 2 [place] [address] [address] Aug, Amenorrhea, unspecified N91. 2 [place] [address] [place] [id number] [address] [place] [address] Aug, Amenorrhea N91.2 and Iron de ficiency anemia, unspecified iron deficiency anemia type D50.9 [place] [address] [place] [id number] [address] [place] [address] Aug, Iron deficiency anemia secon chuck to inadequate dietary iron intake D50.8 ; Amenorrhea N91.2 ; Generalized anxiety disorder F41.1 ; Unspecified mood [affective] disorder F39 and Nausea R11.0 [facility] [address] [id number] [address] [place] [id number] Jul, Non-intractable vomiting wit h nausea, unspecified vomiting type R11.2 and Pleurisy R09.1 [facility] [address] [id number] [address] [place] [address] Jul, [facility] [address] [id number] [address] [place] [address] Jun, Unspecified mood [affective] disorder F39 [place] [address] [facility] [id number] [address] [place] [address] Jun, Unspecified mood [affective] disorder F39 and Generalized anxiety disorder F41.1 [facility] [address] [facility] [id number] [address] [place] [address] May, Bilious vomiting with nausea R11.14 [facility] [address] [id number] [address] [place] [id number] May, Unspecified mood [affective] disorder F39 ; Generalized anxiety disorder F41.1 and Iron deficiency anemia, unspecified iron deficiency anemia type D50.9 [facility] [address] [facility] [id number] [address] [place] [address] Apr, Unspecified mood [affective] disorder F39 [facility] [address] [facility] [id number] [address] [place] [id number] Apr, Iron deficiency anemia, unsp ecified iron deficiency anemia type D50.9 [facility] [address] [id number] [address] [place] [address] Apr, Iron deficiency anemia, unsp ecified iron deficiency anemia type D50.9 [facility] [address] [id number] [address] [place] [address] Apr, Unspecified mood [affective] disorder F39 [facility] [address] [facility] [id number] [address] [place] [id number] 07 Apr, 2017 Abnormal CBC R79.89 [facility] [address] [facility] [id number] [address] [place] [address] Apr, Abnormal CBC R79.89 [facility] [address] [facility] [id number] [address] [place] [id number] 05 Apr, 2017 Encounter to establish care with new doctor Z76.89 ; Unspecified mood [affective] disorder F39 and Primary insomnia F51.01 [facility] [address] [facility] [id number] [address] [place] [address] Mar, Unspecified mood [affective] disorder F39 and Generalized anxiety disorder F41.1 [facility] [address] [facility] [id number] [address] [place] [address] Mar, Sore throat J02.9 and Strep pharyngitis J02.0 [facility] [id number] [place] [id number] Feb, Dental examination Z01.20 [facility] [address] [place] [id number] [place] [id number] Jan, Encounter for dental examina tion Z01.20 [facility] [address] [place] [id number] [address] [place] [id number] Nov, Fever, unspecified R50.9 and Acute nasopharyngitis J00 [facility] [address] [place] [id number] [address] [place] [id number] 18 Sep, 2015 Abdominal pain, acute, right upper quadrant 789.01 [facility] [address] [facility] [id number] [address] [place] [address] Sep, [facility] [address] [facility] [id number] [address] [place] [address] Aug, Irritable bowel syndrome wit h diarrhea K58.0 [facility] [address] [facility] [id number] [address] [place] [id number] Aug, Urinary tract infection, sit e not specified N39.0 and Back pain M54.9 [facility] [address] [facility] [id number] [address] [place] [address] Mar, Abdominal pain, acute, right upper quadrant 789.01 [facility] [address] [facility] [id number] [address] [place] [address] Mar, [facility] [address] [place] [id number] [address] [place] [address] Mar, Nausea 787.02 and Abdominal pain, acute, right upper quadrant 789.01 [facility] [address] [facility] [id number] [address] [place] [address] Mar, Nausea 787.02 and Abdominal pain 789.00 [facility] [address] [place] [id number] [address] [place] [id number] Mar, Nausea 787.02 [facility] [address] [place] [id number] [address] [place] [address] Jan, Amenorrhea 626.0 [facility] [address] [place] [id number] [address] [place] [address] Jan, Amenorrhea 626.0 and Obesity 278.00 [facility] [address] [place] [id number] [address] [place] [address] December, Amenorrhea 626.0 and Cough 7 86.2 [facility] [address] [place] [id number] [place] [address] Nov, [facility] [address] [facility] [id number] [address] [place] [address] Nov, [facility] [address] [place] [id number] [place] [address] May, [facility] [address] [place] [id number] [place] [address] May, [facility] [address] [place] [id number] [address] [place] [address] Mar, [facility] [address] [id number] [facility] [place] [address] Mar, [facility] [address] [id number] [facility] [place] [address] Mar, [facility] [address] [id number] [facility] [place] [address] Mar, [facility] [address] [id number] [address] [place] [address], [place] [address] Mar, [facility] [address] [id number] [address] [place] [address], [place] [address] Mar, [facility] [address] [id number] [address] [place] [address], [place] [address] Mar, [facility] [address] [id number] [address] [place] [address], [place] [address] Mar, [facility] [address] [id number] [address] [place] [address], [place] [address] Mar, [facility] [address] [id number] [address] [place] [address], [place] [address] Mar, [facility] [address] [id number] [address] [place] [address], [place] [address] Mar, [facility] [address] [id number] [address] [place] [address], [place] [address] Mar, [facility] [address] [id number] [address] [place] [address], [place] [address] Mar, [facility] [address] [id number] [address] [place] [address], [place] [address] Mar, [facility] [address] [id number] [address] [place] [address], [place] [address] Mar, [facility] [address] [id number] [address] [place] [address], [place] [address] Feb, [facility] [address] [id number] [facility] [place] [address] Feb, 2013 [facility] [address] [id number] [address] [place] [address], [place] [address] Feb, 2013 [facility] [address] [id number] [address] [place] [address], [place] [address] Feb, [facility] [address] [id number] [address] [place] [address], [place] [address] Feb, 2013 [facility] [address] [id number] [address] [place] [address], [place] [address] Feb, 2013 [facility] [address] [id number] [address] [place] [address], [place] [address] Feb, [facility] [address] [id number] [address] [place] [address], [place] [address] Feb, [facility] [address] [id number] [address] [place] [address], [place] [address] Feb, 2013 [facility] [address] [id number] [address] [place] [address], [place] [address] Feb, 2013 [facility] [address] [id number] [address] [place] [address], [place] [address] Feb, 2013 [facility] [address] [id number] [address] [place] [address], [place] [address] Feb, [facility] [address] [id number] [address] [place] [address], [place] [address] Feb, [facility] [address] [id number] [address] [place] [address], [place] [address] Feb, [facility] [address] [id number] [address] [place] [address], [place] [address] Feb, [facility] [address] [id number] [address] [place] [address], [place] [address] Jan, [facility] [address] [id number] [address] [place] [address], [place] [address] Jan, [facility] [address] [id number] [facility] [place] [address] Jan, [facility] [address] [id number] [facility] [place] [address] Jan, [facility] [address] [id number] [facility] [place] [address] Jan, [facility] [address] [id number] [facility] [place] [address] Jan, [facility] [address] [id number] [facility] [place] [address] Jan, [facility] [address] [id number] [address] [place] [address], [place] [address] Jan, [facility] [address] [id number] [address] [place] [address], [place] [address] Jan, [facility] [address] [id number] [address] [place] [address], [place] [address] Jan, [facility] [address] [id number] [address] [place] [address], [place] [address] Jan, [facility] [address] [id number] [address] [place] [address], [place] [address] Jan, [facility] [address] [id number] [address] [place] [address], [place] [address] Jan, [facility] [address] [id number] [address] [place] [address], [place] [address] December, [facility] [address] [id number] [address] [place] [address], [place] [address] December, [facility] [address] [id number] [address] [place] [address], [place] [address] December, [facility] [address] [id number] [address] [place] [address], [place] [address] December, [facility] [address] [id number] [address] [place] [address], [place] [address] December, [facility] [address] [id number] [address] [place] [address], [place] [address] December, [facility] [address] [id number] [address] [place] [address], [place] [address] December, [facility] [address] [id number] [address] [place] [address], [place] [address] December, [facility] [address] [id number] [address] [place] [address], [place] [address] December, [facility] [address] [id number] [address] [place] [address], [place] [address] December, [facility] [address] [id number] [address] [place] [address], [place] [address] December, [facility] [address] [id number] [address] [place] [address], [place] [address] December, [facility] [address] [id number] [address] [place] [address], [place] [address] Nov, [facility] [address] [id number] [address] [place] [address], [place] [address] Nov, [facility] [address] [id number] [address] [place] [address], [place] [address] Oct, [facility] [address] [id number] [address] [place] [address], [place] [address] Oct, [facility] [address] [id number] [address] [place] [address], [place] [address] Oct, [facility] [address] [id number] [address] [place] [address], [place] [address] Oct, [facility] [address] [id number] [address] [place] [address], [place] [address] Oct, [facility] [address] [id number] [address] [place] [address], [place] [address] Oct, [facility] [address] [id number] [facility] [place] [address] 19 Oct, 2013 [facility] [address] [id number] [address] [place] [address], [place] [address] 19 Oct, 2013 [facility] [address] [id number] [facility] [place] [address] 18 Oct, 2013 [facility] [address] [id number] [address] [place] [address], [place] [address] 08 Oct, 2013 [facility] [address] [id number] [address] [place] [address], [place] [address] 07 Oct, 2013 [facility] [address] [id number] [address] [place] [address], [place] [address] 06 Oct, 2013 [facility] [address] [id number] [address] [place] [address], [place] [address] 06 Oct, 2013 [facility] [address] [id number] [address] [place] [address], [place] [address] 05 Oct, 2013 [facility] [address] [id number] [address] [place] [address], [place] [address] 05 Oct, 2013 [facility] [address] [id number] [address] [place] [address], [place] [address] Oct, [facility] [address] [id number] [address] [place] [address], [place] [address] Oct, [facility] [address] [id number] [address] [place] [address], [place] [address] Sep, [facility] [address] [id number] [address] [place] [address], [place] [address] Sep, [facility] [address] [id number] [address] [place] [address], [place] [address] Sep, [facility] [address] [id number] [address] [place] [address], [place] [address] Jun, [facility] [address] [id number] [address] [place] [address], [place] [address] Jun, [facility] [address] [id number] [address] [place] [address], [place] [address] Jun, [facility] [address] [id number] [address] [place] [address], [place] [address] Jun, [facility] [address] [id number] [address] [place] [address], [place] [address] Jun, [facility] [address] [id number] [address] [place] [address], [place] [address] Jun, [facility] [address] [id number] [address] [place] [address], [place] [address] May, [facility] [address] [id number] [address] [place] [address], [place] [address] May, [facility] [address] [id number] [address] [place] [address], [place] [address] May, [facility] [address] [id number] [address] [place] [address], [place] [address] May, [facility] [address] [id number] [address] [place] [address], [place] [address] May, [facility] [address] [id number] [address] [place] [id number] May, [facility] [address] [id number] [address] [place] [address], [place] [address] 26 Apr, 2013 [facility] [address] [id number] [address] [place] [id number] 24 Apr, 2013 [facility] [address] [id number] [address] [place] [address], [place] [address] 23 Apr, 2013 [facility] [address] [id number] [address] [place] [address], [place] [address] 20 Apr, 2013 [facility] [address] [id number] [address] [place] [address], [place] [address] 19 Apr, 2013 [facility] [address] [id number] [address] [place] [address], [place] [address] 17 Sep, 2012 [facility] [address] [id number] [address] [place] [address], [place] [address] 13 Sep, 2012 [facility] [address] [id number] [address] [place] [address], [place] [address] 11 Apr, 2012 [facility] [address] [id number] [address] [place] [address], [place] [address] 09 Apr, 2012 [facility] [address] [id number] [address] [place] [address], [place] [address] 05 Apr, 2012 [facility] [address] [id number] [address] [place] [address], [place] [address] Mar, [facility] [address] [id number] [address] [place] [address], [place] [address] Nov, [facility] [address] [id number] [address] [place] [address], [place] [address] Oct, [facility] [address] [id number] [address] [place] [address], [place] [address] Oct, [facility] [address] [id number] [address] [place] [address], [place] [address] Sep, [facility] [address] [id number] [address] [place] [address], [place] [address] May, [facility] [address] [id number] [address] [place] [address], [place] [address] 27 May, 2012 [facility] [address] [id number] [address] [place] [address], [place] [address] May, [facility] [address] [id number] [address] [place] [address], [place] [address] 11 May, 2012 [facility] [address] [id number] [address] [place] [address], [place] [address] 24 Apr, 2012 [facility] [address] [id number] [address] [place] [address], [place] [address] 06 Apr, 2012 [facility] [address] [id number] [address] [place] [id number] Mar, [facility] [address] [id number] [address] [place] [id number] Feb, [facility] [address] [id number] [address] [place] [id number] Jul, [facility] [address] [id number] [address] [place] [id number] Jul, [facility] [address] [id number] [address] [place] [id number] Jul, [facility] [address] [id number] [address] [place] [id number] December, [facility] [address] [id number] [address] [place] [id number] December, [facility] [address] [id number] [address] [place] [id number] Oct, IMMUNIZATIONS No Known Immunizations SOCIAL HISTORY [...]
--- OUTSIDE RECORDS SUMMARY | 2019-10-07 05:32 | XMS REPORT ---
Author Author Jailene ALVES Organization [facility] Address [address] [place] [address] Care Team Providers Care Social Welfare Clerk Name Role Phone ALVESWANDARYL Unavailable PROBLEMS Type Condition ICD9-CM Code ZUO69-WG Code Onset Dates Condition S tatus SNOMED Code Problem Body mass index (BMI) of 40.0-44.9 in adult Z68.41 Active 961855304 Problem Elevated erythrocyte sedimentation rate R70.0 Active 759864389 Problem Morbid (severe) obesity due to excess calories E66 .01 Active 618671050 Problem Desire for Z31.9 Active 237636719 Problem Amenorrhea N91.2 Active 02910997 Problem Generalized anxiety disorder F41.1 A ctive 92300743 Problem Primary insomnia F51.01 Active 397 2004 Problem Iron deficiency anemia secondary to inadequate d ietary iron intake D50.8 Active 301188250 Problem Unspecified mood [affective] disorder F39 Active 00717404 ALLERGIES No Information ENCOUNTERS Encounter Location Date Diagnosis [facility] [address] [facility] [id number] [address] [place] [address] Mar, Generalized anxiety disorder F41.1 ; Unspecified mood [affective] disorder F39 ; BMI 40.0-44.9, adult Z68.41 and Myalgia M79.1 [facility] [address] [facility] [id number] [address] [place] [address] Feb, Elevated erythrocyte sedimen tation rate R70.0 [facility] [address] [facility] [id number] [address] [place] [address] Feb, Elevated erythrocyte sedimen tation rate R70.0 [facility] [address] [facility] [id number] [address] [place] [id number] Feb, Unprotected sexual intercour se Z72.51 ; Pain in left knee M25.562 and Pain in joints of right hand M25.541 [facility] [address] [facility] [id number] [address] [place] [address] Feb, Pain in left knee M25.562 an d Pain in joints of right hand M25.541 [facility] [address] [place] [id number] [place] [address] Feb, Unspecified mood [affective] disorder F39 ; Generalized anxiety disorder F41.1 ; Pain in joints of right hand M25.541 ; Pain in joints of left hand M25.542 ; Pain in right knee M25.561 ; Pain in left knee M25.562 and Morbid (severe) obesity due to excess calories E66.01 [facility] [address] [id number] [address] [place] [address] Jan, Sore throat J02.9 ; Strep th roat J02.0 ; BMI 40.0-44.9, adult Z68.41 ; Dysuria R30.0 and Acute cystitis with hematuria N30.01 [place] [address] [address] Jan, [place] [address] [place] [id number] [place] [address] December, Abnormal MRI of head R93.0 [place] [address] [address] December, Subcutaneous nodules R22.9 ; Syncope, unspecified syncope type R55 ; Abnormal MRI of head R93.0 and Iron deficiency anemia secondary to inadequate dietary iron intake D50.8 [place] [address] [place] [id number] [address] [place] [address] December, [place] [address] [place] [id number] [place] [address] December, Iron deficiency anemia secon chuck to inadequate dietary iron intake D50.8 and BMI 40.0-44.9, adult Z68.41 [facility] [address] [place] [address] [id number] [address] [place] [address] Nov, Gastroenteritis K52.9 [place] [address] [address] Nov, [place] [address] [address] Nov, Bilateral hand swelling M79. 89 ; Amenorrhea N91.2 ; Desire for Z31.9 ; Amenorrhea, unspecified N91.2 ; Bilateral swelling of feet M79.89 ; Rash R21 and Iron deficiency anemia, unspecified iron deficiency anemia type D50.9 [place] [address] [address] Nov, Bilateral hand swelling M79. 89 ; Bilateral swelling of feet M79.89 and Rash R21 [place] [address] [address] Sep, Desire for Z31.9 a nd Amenorrhea N91.2 [facility] [address] [address] Aug, Scabies B86 [place] [address] [address] Aug, Amenorrhea, unspecified N91. 2 [place] [address] [address] Aug, Amenorrhea, unspecified N91. 2 [place] [address] [place] [id number] [address] [place] [address] Aug, Amenorrhea N91.2 and Iron de ficiency anemia, unspecified iron deficiency anemia type D50.9 [place] [address] [place] [id number] [address] [place] [address] Aug, Iron deficiency anemia secon chuck to inadequate dietary iron intake D50.8 ; Amenorrhea N91.2 ; Generalized anxiety disorder F41.1 ; Unspecified mood [affective] disorder F39 and Nausea R11.0 [facility] [address] [id number] [address] [place] [address] Jul, Non-intractable vomiting wit h nausea, unspecified vomiting type R11.2 and Pleurisy R09.1 [facility] [address] [id number] [address] [place] [address] Jul, [facility] [address] [id number] [address] [place] [address] Jun, Unspecified mood [affective] disorder F39 [place] [address] [facility] [id number] [address] [place] [address] Jun, Unspecified mood [affective] disorder F39 and Generalized anxiety disorder F41.1 [facility] [address] [facility] [id number] [address] [place] [address] May, Bilious vomiting with nausea R11.14 [facility] [address] [id number] [address] [place] [address] May, Unspecified mood [affective] disorder F39 ; Generalized anxiety disorder F41.1 and Iron deficiency anemia, unspecified iron deficiency anemia type D50.9 [facility] [address] [facility] [id number] [address] [place] [address] Apr, Unspecified mood [affective] disorder F39 [facility] [address] [facility] [id number] [address] [place] [address] Apr, Iron deficiency anemia, unsp ecified iron deficiency anemia type D50.9 [facility] [address] [id number] [address] [place] [address] Apr, Iron deficiency anemia, unsp ecified iron deficiency anemia type D50.9 [facility] [address] [id number] [address] [place] [address] Apr, Unspecified mood [affective] disorder F39 [facility] [address] [facility] [id number] [address] [place] [address] 07 Apr, 2017 Abnormal CBC R79.89 [facility] [address] [facility] [facility] [id number] [address] [place] [address] Apr, Abnormal CBC R79.89 [facility] [address] [facility] [id number] [address] [place] [address] 05 Apr, 2017 Encounter to establish care with new doctor Z76.89 ; Unspecified mood [affective] disorder F39 and Primary insomnia F51.01 [facility] [address] [facility] [id number] [address] [place] [address] Mar, Unspecified mood [affective] disorder F39 and Generalized anxiety disorder F41.1 [facility] [address] [facility] [facility] [id number] [address] [place] [address] Mar, Sore throat J02.9 and Strep pharyngitis J02.0 [facility] [id number] [place] [id number] Feb, Dental examination Z01.20 [facility] [address] [place] [id number] [place] [id number] Jan, Encounter for dental examina tion Z01.20 [facility] [address] [place] [id number] [address] [place] [address] Nov, Fever, unspecified R50.9 and Acute nasopharyngitis J00 [facility] [address] [place] [id number] [address] [place] [address] 18 Sep, 2015 Abdominal pain, acute, right upper quadrant 789.01 [facility] [address] [facility] [id number] [address] [place] [address] Sep, [facility] [address] [facility] [id number] [address] [place] [address] Aug, Irritable bowel syndrome wit h diarrhea K58.0 [facility] [address] [facility] [id number] [address] [place] [address] Aug, Urinary tract infection, sit e not specified N39.0 and Back pain M54.9 [facility] [address] [facility] [id number] [address] [place] [address] Mar, Abdominal pain, acute, right upper quadrant 789.01 [facility] [address] [facility] [id number] [address] [place] [address] Mar, [facility] [address] [id number] [address] [place] [address] Mar, Nausea 787.02 and Abdominal pain, acute, right upper quadrant 789.01 [facility] [address] [facility] [facility] [id number] [address] [place] [address] Mar, Nausea 787.02 and Abdominal pain 789.00 [facility] [address] [place] [id number] [address] [place] [address] Mar, Nausea 787.02 [facility] [address] [place] [id number] [address] [place] [address] Jan, Amenorrhea 626.0 [facility] [address] [id number] [address] [place] [address] Jan, Amenorrhea 626.0 and Obesity 278.00 [facility] [address] [id number] [address] [place] [address] December, Amenorrhea 626.0 and Cough 7 86.2 [facility] [address] [place] [id number] [address] [place] [address] Nov, [facility] [address] [facility] [id number] [address] [place] [address] Nov, [facility] [address] [place] [id number] [address] [place] [address] May, [facility] [address] [place] [id number] [address] [place] [address] May, [facility] [address] [id number] [address] [place] [address] Mar, [facility] [address] [id number] [facility] [place] [address] Mar, [facility] [address] [id number] [facility] [place] [address] Mar, [facility] [address] [id number] [facility] [place] [address] Mar, [facility] [address] [id number] [address] [place] [address], [place] [address] Mar, [facility] [address] [id number] [address] [place] [address], [place] [address] Mar, [facility] [address] [id number] [address] [place] [address], [place] [address] Mar, [facility] [address] [id number] [address] [place] [address], [place] [address] Mar, [facility] [address] [id number] [address] [place] [address], [place] [address] Mar, [facility] [address] [id number] [address] [place] [address], [place] [address] Mar, [facility] [address] [id number] [address] [place] [address], [place] [address] Mar, [facility] [address] [id number] [address] [place] [address], [place] [address] Mar, [facility] [address] [id number] [address] [place] [address], [place] [address] Mar, [facility] [address] [id number] [address] [place] [address], [place] [address] Mar, [facility] [address] [id number] [address] [place] [address], [place] [address] Mar, [facility] [address] [id number] [address] [place] [address], [place] [address] Feb, [facility] [address] [id number] [facility] [place] [address] Feb, 2013 [facility] [address] [id number] [address] [place] [address], [place] [address] Feb, 2013 [facility] [address] [id number] [address] [place] [address], [place] [address] Feb, [facility] [address] [id number] [address] [place] [address], [place] [address] Feb, 2013 [facility] [address] [id number] [address] [place] [address], [place] [address] Feb, 2013 [facility] [address] [id number] [address] [place] [address], [place] [address] Feb, [facility] [address] [id number] [address] [place] [address], [place] [address] Feb, [facility] [address] [id number] [address] [place] [address], [place] [address] Feb, 2013 [facility] [address] [id number] [address] [place] [address], [place] [address] Feb, 2013 [facility] [address] [id number] [address] [place] [address], [place] [address] Feb, 2013 [facility] [address] [id number] [address] [place] [address], [place] [address] Feb, [facility] [address] [id number] [address] [place] [address], [place] [address] Feb, [facility] [address] [id number] [address] [place] [address], [place] [address] Feb, [facility] [address] [id number] [address] [place] [address], [place] [address] Feb, [facility] [address] [id number] [address] [place] [address], [place] [address] Jan, [facility] [address] [id number] [address] [place] [address], [place] [address] Jan, [facility] [address] [id number] [facility] [place] [address] Jan, [facility] [address] [id number] [facility] [place] [address] Jan, [facility] [address] [id number] [facility] [place] [address] Jan, [facility] [address] [id number] [facility] [place] [address] Jan, [facility] [address] [id number] [facility] [place] [address] Jan, [facility] [address] [id number] [address] [place] [address], [place] [address] Jan, [facility] [address] [id number] [address] [place] [address], [place] [address] Jan, [facility] [address] [id number] [address] [place] [address], [place] [address] Jan, [facility] [address] [id number] [address] [place] [address], [place] [address] Jan, [facility] [address] [id number] [address] [place] [address], [place] [address] Jan, [facility] [address] [id number] [address] [place] [address], [place] [address] Jan, [facility] [address] [id number] [address] [place] [address], [place] [address] December, [facility] [address] [id number] [address] [place] [address], [place] [address] December, [facility] [address] [id number] [address] [place] [address], [place] [address] December, [facility] [address] [id number] [address] [place] [address], [place] [address] December, [facility] [address] [id number] [address] [place] [address], [place] [address] December, [facility] [address] [id number] [address] [place] [address], [place] [address] December, [facility] [address] [id number] [address] [place] [address], [place] [address] December, [facility] [address] [id number] [address] [place] [address], [place] [address] December, [facility] [address] [id number] [address] [place] [address], [place] [address] December, [facility] [address] [id number] [address] [place] [address], [place] [address] December, [facility] [address] [id number] [address] [place] [address], [place] [address] December, [facility] [address] [id number] [address] [place] [address], [place] [address] December, [facility] [address] [id number] [address] [place] [address], [place] [address] Nov, [facility] [address] [id number] [address] [place] [address], [place] [address] Nov, [facility] [address] [id number] [address] [place] [address], [place] [address] Oct, [facility] [address] [id number] [address] [place] [address], [place] [address] Oct, [facility] [address] [id number] [address] [place] [address], [place] [address] Oct, [facility] [address] [id number] [address] [place] [address], [place] [address] Oct, [facility] [address] [id number] [address] [place] [address], [place] [address] Oct, [facility] [address] [id number] [address] [place] [address], [place] [address] Oct, [facility] [address] [id number] [facility] [place] [address] 19 Oct, 2013 [facility] [address] [id number] [address] [place] [address], [place] [address] 19 Oct, 2013 [facility] [address] [id number] [facility] [place] [address] 18 Oct, 2013 [facility] [address] [id number] [address] [place] [address], [place] [address] 08 Oct, 2013 [facility] [address] [id number] [address] [place] [address], [place] [address] 07 Oct, 2013 [facility] [address] [id number] [address] [place] [address], [place] [address] 06 Oct, 2013 [facility] [address] [id number] [address] [place] [address], [place] [address] 06 Oct, 2013 [facility] [address] [id number] [address] [place] [address], [place] [address] 05 Oct, 2013 [facility] [address] [id number] [address] [place] [address], [place] [id number] 05 Oct, 2013 [facility] [address] [id number] [address] [place] [address], [place] [address] Oct, [facility] [address] [id number] [address] [place] [address], [place] [address] Oct, [facility] [address] [id number] [address] [place] [address], [place] [address] Sep, [facility] [address] [id number] [address] [place] [address], [place] [address] Sep, [facility] [address] [id number] [address] [place] [address], [place] [address] Sep, [facility] [address] [id number] [address] [place] [address], [place] [address] Jun, [facility] [address] [id number] [address] [place] [address], [place] [address] Jun, [facility] [address] [id number] [address] [place] [address], [place] [address] Jun, [facility] [address] [id number] [address] [place] [address], [place] [address] Jun, [facility] [address] [id number] [address] [place] [address], [place] [address] Jun, [facility] [address] [id number] [address] [place] [address], [place] [address] Jun, [facility] [address] [id number] [address] [place] [address], [place] [address] May, [facility] [address] [id number] [address] [place] [address], [place] [address] May, [facility] [address] [id number] [address] [place] [address], [place] [address] May, [facility] [address] [id number] [address] [place] [address], [place] [address] May, [facility] [address] [id number] [address] [place] [address], [place] [address] May, [facility] [address] [id number] [address] [place] [id number] May, [facility] [address] [id number] [address] [place] [address], [place] [address] 26 Apr, 2013 [facility] [address] [id number] [address] [place] [id number] 24 Apr, 2013 [facility] [address] [id number] [address] [place] [address], [place] [id number] 23 Apr, 2013 [facility] [address] [id number] [address] [place] [address], [place] [id number] 20 Apr, 2013 [facility] [address] [id number] [address] [place] [address], [place] [id number] 19 Apr, 2013 [facility] [address] [id number] [address] [place] [address], [place] [id number] 17 Sep, 2012 [facility] [address] [id number] [address] [place] [address], [place] [id number] 13 Sep, 2012 [facility] [address] [id number] [address] [place] [address], [place] [id number] 11 Apr, 2012 [facility] [address] [id number] [address] [place] [address], [place] [id number] 09 Apr, 2012 [facility] [address] [id number] [address] [place] [address], [place] [id number] 05 Apr, 2012 [facility] [address] [id number] [address] [place] [address], [place] [id number] Mar, [facility] [address] [id number] [address] [place] [address], [place] [id number] Nov, [facility] [address] [id number] [address] [place] [address], [place] [id number] Oct, [facility] [address] [id number] [address] [place] [address], [place] [id number] Oct, [facility] [address] [id number] [address] [place] [address], [place] [id number] Sep, [facility] [address] [id number] [address] [place] [address], [place] [id number] May, [facility] [address] [id number] [address] [place] [address], [place] [id number] 27 May, 2012 [facility] [address] [id number] [address] [place] [address], [place] [id number] May, [facility] [address] [id number] [address] [place] [address], [place] [id number] 11 May, 2012 [facility] [address] [id number] [address] [place] [address], [place] [id number] 24 Apr, 2012 [facility] [address] [id number] [address] [place] [address], [place] [id number] 06 Apr, 2012 [facility] [address] [id number] [address] [place] [id number] Mar, [facility] [address] [id number] [address] [place] [id number] Feb, [facility] [address] [id number] [address] [place] [id number] Jul, [facility] [address] [id number] [address] [place] [id number] Jul, [facility] [address] [id number] [address] [place] [id number] Jul, [facility] [address] [id number] [address] [place] [id number] December, [facility] [address] [id number] [address] [place] [id number] December, [facility] [address] [id number] [address] [place] [id number] Oct, IMMUNIZATIONS No Known Immunizations SOCIAL HISTORY Never Assessed REASON FOR VISIT Xray (walk-in) PLAN OF CARE VITAL SIGNS MEDICATIONS No Known Medications RESULTS Name Result Date Reference Range TEST, URINE (IN HOUSE) 2018-02-28 RESULTS negative Lot # [id number] Control + Exp date 2019-06-19 Xray : Knee, Left 3 views (IN HOUSE) 2018-02-28 Xray : Hand, Right 3 views (IN HOUSE) 2018-02-28 PROCEDURES Procedure Date Ordered Result Body Site URINE TEST February 28, 2018 X-RAY EXAM OF KNEE, 3 February 28, 2018 X-RAY EXAM OF HAND February 28, 2018 INSTRUCTIONS MEDICATIONS ADMINISTERED No Known Medications MEDICAL (GENERAL) HISTORY Type Description Date Medical History anemia Medical History asthma Surgical History section x2 Surgical History hernia repair Hospitalization History surgeries Hospitalization History possible gallbladder problems Hospitalization History ER visit for UTI 09/12/15 Hospitalization History dizziness, blackout 12/28/2017
--- OUTSIDE RECORDS SUMMARY | 2019-10-07 05:33 | XMS REPORT ---
Author Author Jailene ALVES Organization [facility] Address [address] [place] [address] Care Team Providers Care Dance Critic Name Role Phone ALVESWANDARYL Unavailable PROBLEMS Type Condition ICD9-CM Code [id number] Code Onset Dates Condition S tatus SNOMED Code Problem Body mass index (BMI) of 40.0-44.9 in adult Z68.41 Active 279903474 Problem Elevated erythrocyte sedimentation rate R70.0 Active 165750963 Problem Morbid (severe) obesity due to excess calories E66 .01 Active 427774474 Problem Desire for Z31.9 Active 936097470 Problem Amenorrhea N91.2 Active 45343726 Problem Generalized anxiety disorder F41.1 A ctive 85472165 Problem Primary insomnia F51.01 Active 397 2004 Problem Iron deficiency anemia secondary to inadequate d ietary iron intake D50.8 Active 087043422 Problem Unspecified mood [affective] disorder F39 Active [id number] ALLERGIES No Information ENCOUNTERS Encounter Location Date Diagnosis [facility] [address] [facility] [id number] [address] [place] [address] Mar, Generalized anxiety disorder F41.1 ; Unspecified mood [affective] disorder F39 ; BMI 40.0-44.9, adult Z68.41 and Myalgia M79.1 [facility] [address] [facility] [id number] [address] [place] [address] Feb, Elevated erythrocyte sedimen tation rate R70.0 [facility] [address] [facility] [id number] [address] [place] [address] Feb, Elevated erythrocyte sedimen tation rate R70.0 [facility] [address] [facility] [id number] [address] [place] [address] Feb, Unprotected sexual intercour se Z72.51 ; Pain in left knee M25.562 and Pain in joints of right hand M25.541 [facility] [address] [facility] [id number] [address] [place] [address] Feb, Pain in left knee M25.562 an d Pain in joints of right hand M25.541 [facility] [address] [place] [id number] [place] [address] Feb, Unspecified mood [affective] disorder F39 ; Generalized anxiety disorder F41.1 ; Pain in joints of right hand M25.541 ; Pain in joints of left hand M25.542 ; Pain in right knee M25.561 ; Pain in left knee M25.562 and Morbid (severe) obesity due to excess calories E66.01 [facility] [address] [place] [id number] [address] [place] [address] Jan, Sore throat J02.9 ; Strep th roat J02.0 ; BMI 40.0-44.9, adult Z68.41 ; Dysuria R30.0 and Acute cystitis with hematuria N30.01 [place] [address] [address] Jan, [place] [address] [place] [id number] [place] [address] December, Abnormal MRI of head R93.0 [place] [address] [address] December, Subcutaneous nodules R22.9 ; Syncope, unspecified syncope type R55 ; Abnormal MRI of head R93.0 and Iron deficiency anemia secondary to inadequate dietary iron intake D50.8 [place] [address] [place] [id number] [address] [place] [address] December, [place] [address] [place] [id number] [place] [address] December, Iron deficiency anemia secon chuck to inadequate dietary iron intake D50.8 and BMI 40.0-44.9, adult Z68.41 [facility] [address] [place] [id number] [address] [place] [address] Nov, Gastroenteritis K52.9 [place] [address] [address] Nov, [place] [address] [address] Nov, Bilateral hand swelling M79. 89 ; Amenorrhea N91.2 ; Desire for Z31.9 ; Amenorrhea, unspecified N91.2 ; Bilateral swelling of feet M79.89 ; Rash R21 and Iron deficiency anemia, unspecified iron deficiency anemia type D50.9 [place] [address] [address] Nov, Bilateral hand swelling M79. 89 ; Bilateral swelling of feet M79.89 and Rash R21 [place] [address] [address] Sep, Desire for Z31.9 a nd Amenorrhea N91.2 [facility] [address] [address] Aug, Scabies B86 [place] [address] [address] Aug, Amenorrhea, unspecified N91. 2 [place] [address] [address] Aug, Amenorrhea, unspecified N91. 2 [place] [address] [place] [id number] [address] [place] [address] Aug, Amenorrhea N91.2 and Iron de ficiency anemia, unspecified iron deficiency anemia type D50.9 [place] [address] [place] [id number] [address] [place] [address] Aug, Iron deficiency anemia secon chuck to inadequate dietary iron intake D50.8 ; Amenorrhea N91.2 ; Generalized anxiety disorder F41.1 ; Unspecified mood [affective] disorder F39 and Nausea R11.0 [facility] [address] [id number] [address] [place] [address] Jul, Non-intractable vomiting wit h nausea, unspecified vomiting type R11.2 and Pleurisy R09.1 [facility] [address] [id number] [address] [place] [address] Jul, [facility] [address] [id number] [address] [place] [address] Jun, Unspecified mood [affective] disorder F39 [place] [address] [facility] [id number] [address] [place] [address] Jun, Unspecified mood [affective] disorder F39 and Generalized anxiety disorder F41.1 [facility] [address] [facility] [id number] [address] [place] [address] May, Bilious vomiting with nausea R11.14 [facility] [address] [id number] [address] [place] [address] May, Unspecified mood [affective] disorder F39 ; Generalized anxiety disorder F41.1 and Iron deficiency anemia, unspecified iron deficiency anemia type D50.9 [facility] [address] [facility] [id number] [address] [place] [address] Apr, Unspecified mood [affective] disorder F39 [facility] [address] [facility] [id number] [address] [place] [address] Apr, Iron deficiency anemia, unsp ecified iron deficiency anemia type D50.9 [facility] [address] [id number] [address] [place] [address] Apr, Iron deficiency anemia, unsp ecified iron deficiency anemia type D50.9 [facility] [address] [id number] [address] [place] [address] Apr, Unspecified mood [affective] disorder F39 [facility] [address] [facility] [id number] [address] [place] [address] 07 Apr, 2017 Abnormal CBC R79.89 [facility] [address] [facility] [id number] [address] [place] [address] Apr, Abnormal CBC R79.89 [facility] [address] [facility] [id number] [address] [place] [address] 05 Apr, 2017 Encounter to establish care with new doctor Z76.89 ; Unspecified mood [affective] disorder F39 and Primary insomnia F51.01 [facility] [address] [facility] [id number] [address] [place] [address] Mar, Unspecified mood [affective] disorder F39 and Generalized anxiety disorder F41.1 [facility] [address] [facility] [id number] [address] [place] [address] Mar, Sore throat J02.9 and Strep pharyngitis J02.0 [facility] [id number] [place] [id number] Feb, Dental examination Z01.20 [facility] [address] [place] [id number] [place] [id number] Jan, Encounter for dental examina tion Z01.20 [facility] [address] [place] [id number] [address] [place] [address] Nov, Fever, unspecified R50.9 and Acute nasopharyngitis J00 [facility] [address] [place] [id number] [address] [place] [address] 18 Sep, 2015 Abdominal pain, acute, right upper quadrant 789.01 [facility] [address] [facility] [id number] [address] [place] [address] Sep, [facility] [address] [facility] [id number] [address] [place] [address] Aug, Irritable bowel syndrome wit h diarrhea K58.0 [facility] [address] [facility] [id number] [address] [place] [address] Aug, Urinary tract infection, sit e not specified N39.0 and Back pain M54.9 [facility] [address] [facility] [id number] [address] [place] [address] Mar, Abdominal pain, acute, right upper quadrant 789.01 [facility] [address] [facility] [id number] [address] [place] [address] Mar, [facility] [address] [place] [id number] [address] [place] [address] Mar, Nausea 787.02 and Abdominal pain, acute, right upper quadrant 789.01 [facility] [address] [facility] [id number] [address] [place] [address] Mar, Nausea 787.02 and Abdominal pain 789.00 [facility] [address] [place] [id number] [address] [place] [address] Mar, Nausea 787.02 [facility] [address] [place] [id number] [address] [place] [address] Jan, Amenorrhea 626.0 [facility] [address] [place] [id number] [address] [place] [address] Jan, Amenorrhea 626.0 and Obesity 278.00 [facility] [address] [place] [id number] [address] [place] [address] December, Amenorrhea 626.0 and Cough 7 86.2 [facility] [address] [place] [id number] [address] [place] [address] Nov, [facility] [address] [facility] [id number] [address] [place] [address] Nov, [facility] [address] [place] [id number] [address] [place] [address] May, [facility] [address] [place] [id number] [address] [place] [address] May, [facility] [address] [place] [id number] [address] [place] [address] Mar, [facility] [address] [id number] [facility] [place] [address] Mar, [facility] [address] [id number] [facility] [place] [address] Mar, [facility] [address] [id number] [facility] [place] [address] Mar, [facility] [address] [id number] [address] [place] [address], [place] [address] Mar, [facility] [address] [id number] [address] [place] [address], [place] [address] Mar, [facility] [address] [id number] [address] [place] [address], [place] [address] Mar, [facility] [address] [id number] [address] [place] [address], [place] [address] Mar, [facility] [address] [id number] [address] [place] [address], [place] [address] Mar, [facility] [address] [id number] [address] [place] [address], [place] [address] Mar, [facility] [address] [id number] [address] [place] [address], [place] [address] Mar, [facility] [address] [id number] [address] [place] [address], [place] [address] Mar, [facility] [address] [id number] [address] [place] [address], [place] [address] Mar, [facility] [address] [id number] [address] [place] [address], [place] [address] Mar, [facility] [address] [id number] [address] [place] [address], [place] [address] Mar, [facility] [address] [id number] [address] [place] [address], [place] [address] Feb, [facility] [address] [id number] [facility] [place] [address] Feb, 2013 [facility] [address] [id number] [address] [place] [address], [place] [address] Feb, 2013 [facility] [address] [id number] [address] [place] [address], [place] [address] Feb, [facility] [address] [id number] [address] [place] [address], [place] [address] Feb, 2013 [facility] [address] [id number] [address] [place] [address], [place] [address] Feb, 2013 [facility] [address] [id number] [address] [place] [address], [place] [address] Feb, [facility] [address] [id number] [address] [place] [address], [place] [address] Feb, [facility] [address] [id number] [address] [place] [address], [place] [address] Feb, 2013 [facility] [address] [id number] [address] [place] [address], [place] [address] Feb, 2013 [facility] [address] [id number] [address] [place] [address], [place] [address] Feb, 2013 [facility] [address] [id number] [address] [place] [address], [place] [address] Feb, [facility] [address] [id number] [address] [place] [address], [place] [address] Feb, [facility] [address] [id number] [address] [place] [address], [place] [address] Feb, [facility] [address] [id number] [address] [place] [address], [place] [address] Feb, [facility] [address] [id number] [address] [place] [address], [place] [address] Jan, [facility] [address] [id number] [address] [place] [address], [place] [address] Jan, [facility] [address] [id number] [facility] [place] [address] Jan, [facility] [address] [id number] [facility] [place] [address] Jan, [facility] [address] [id number] [facility] [place] [address] Jan, [facility] [address] [id number] [facility] [place] [address] Jan, [facility] [address] [id number] [facility] [place] [address] Jan, [facility] [address] [id number] [address] [place] [address], [place] [address] Jan, [facility] [address] [id number] [address] [place] [address], [place] [address] Jan, [facility] [address] [id number] [address] [place] [address], [place] [address] Jan, [facility] [address] [id number] [address] [place] [address], [place] [address] Jan, [facility] [address] [id number] [address] [place] [address], [place] [address] Jan, [facility] [address] [id number] [address] [place] [address], [place] [address] Jan, [facility] [address] [id number] [address] [place] [address], [place] [address] December, [facility] [address] [id number] [address] [place] [address], [place] [address] December, [facility] [address] [id number] [address] [place] [address], [place] [address] December, [facility] [address] [id number] [address] [place] [address], [place] [address] December, [facility] [address] [id number] [address] [place] [address], [place] [address] December, [facility] [address] [id number] [address] [place] [address], [place] [address] December, [facility] [address] [id number] [address] [place] [address], [place] [address] December, [facility] [address] [id number] [address] [place] [address], [place] [address] December, [facility] [address] [id number] [address] [place] [address], [place] [address] December, [facility] [address] [id number] [address] [place] [address], [place] [address] December, [facility] [address] [id number] [address] [place] [address], [place] [address] December, [facility] [address] [id number] [address] [place] [address], [place] [address] December, [facility] [address] [id number] [address] [place] [address], [place] [address] Nov, [facility] [address] [id number] [address] [place] [address], [place] [address] Nov, [facility] [address] [id number] [address] [place] [address], [place] [address] Oct, [facility] [address] [id number] [address] [place] [address], [place] [address] Oct, [facility] [address] [id number] [address] [place] [address], [place] [address] Oct, [facility] [address] [id number] [address] [place] [address], [place] [address] Oct, [facility] [address] [id number] [address] [place] [address], [place] [address] Oct, [facility] [address] [id number] [address] [place] [address], [place] [address] Oct, [facility] [address] [id number] [facility] [place] [address] 19 Oct, 2013 [facility] [address] [id number] [address] [place] [address], [place] [address] 19 Oct, 2013 [facility] [address] [id number] [facility] [place] [address] 18 Oct, 2013 [facility] [address] [id number] [address] [place] [address], [place] [address] 08 Oct, 2013 [facility] [address] [id number] [address] [place] [address], [place] [address] 07 Oct, 2013 [facility] [address] [id number] [address] [place] [address], [place] [address] 06 Oct, 2013 [facility] [address] [id number] [address] [place] [address], [place] [address] 06 Oct, 2013 [facility] [address] [id number] [address] [place] [address], [place] [address] 05 Oct, 2013 [facility] [address] [id number] [address] [place] [address], [place] [address] 05 Oct, 2013 [facility] [address] [id number] [address] [place] [address], [place] [address] Oct, [facility] [address] [id number] [address] [place] [address], [place] [address] Oct, [facility] [address] [id number] [address] [place] [address], [place] [address] Sep, [facility] [address] [id number] [address] [place] [address], [place] [address] Sep, [facility] [address] [id number] [address] [place] [address], [place] [address] Sep, [facility] [address] [id number] [address] [place] [address], [place] [address] Jun, [facility] [address] [id number] [address] [place] [address], [place] [address] Jun, [facility] [address] [id number] [address] [place] [address], [place] [address] Jun, [facility] [address] [id number] [address] [place] [address], [place] [address] Jun, [facility] [address] [id number] [address] [place] [address], [place] [address] Jun, [facility] [address] [id number] [address] [place] [address], [place] [address] Jun, [facility] [address] [id number] [address] [place] [address], [place] [address] May, [facility] [address] [id number] [address] [place] [address], [place] [address] May, [facility] [address] [id number] [address] [place] [address], [place] [address] May, [facility] [address] [id number] [address] [place] [address], [place] [address] May, [facility] [address] [id number] [address] [place] [address], [place] [address] May, [facility] [address] [id number] [address] [place] [address] May, [facility] [address] [id number] [address] [place] [address], [place] [address] 26 Apr, 2013 [facility] [address] [id number] [address] [place] [address] 24 Apr, 2013 [facility] [address] [id number] [address] [place] [address], [place] [address] 23 Apr, 2013 [facility] [address] [id number] [address] [place] [address], [place] [address] 20 Apr, 2013 [facility] [address] [id number] [address] [place] [address], [place] [address] 19 Apr, 2013 [facility] [address] [id number] [address] [place] [address], [place] [address] 17 Sep, 2012 [facility] [address] [id number] [address] [place] [address], [place] [address] 13 Sep, 2012 [facility] [address] [id number] [address] [place] [address], [place] [address] 11 Apr, 2012 [facility] [address] [id number] [address] [place] [address], [place] [address] 09 Apr, 2012 [facility] [address] [id number] [address] [place] [address], [place] [address] 05 Apr, 2012 [facility] [address] [id number] [address] [place] [address], [place] [address] Mar, [facility] [address] [id number] [address] [place] [address], [place] [address] Nov, [facility] [address] [id number] [address] [place] [address], [place] [address] Oct, [facility] [address] [id number] [address] [place] [address], [place] [address] Oct, [facility] [address] [id number] [address] [place] [address], [place] [address] Sep, [facility] [address] [id number] [address] [place] [address], [place] [address] May, [facility] [address] [id number] [address] [place] [address], [place] [address] 27 May, 2012 [facility] [address] [id number] [address] [place] [address], [place] [address] May, [facility] [address] [id number] [address] [place] [address], [place] [address] 11 May, 2012 [facility] [address] [id number] [address] [place] [address], [place] [address] 24 Apr, 2012 [facility] [address] [id number] [address] [place] [address], [place] [address] 06 Apr, 2012 [facility] [address] [id number] [address] [place] [address] Mar, [facility] [address] [id number] [address] [place] [address] Feb, [facility] [address] [id number] [address] [place] [address] Jul, [facility] [address] [id number] [address] [place] [address] Jul, [facility] [address] [id number] [address] [place] [address] Jul, [facility] [address] [id number] [address] [place] [address] December, [facility] [address] [id number] [address] [place] [id number] December, [facility] [facility] [id number] [address] [place] [id number] Oct, IMMUNIZATIONS No Known Immunizations SOCIAL HISTORY Never Assessed REASON FOR VISIT Requests return call PLAN OF CARE VITAL SIGNS MEDICATIONS No [...]
--- OUTSIDE RECORDS SUMMARY | 2019-10-07 05:33 | XMS REPORT ---
Author Author Jailene ALVES Organization [facility] [place] Address [address] [place] [address] Care Team Providers Care Director Of Casework Name Role Phone [email or web address] Unavailable PROBLEMS Type Condition ICD9-CM Code VHR75-TW Code Onset Dates Condition S tatus SNOMED Code Problem Body mass index (BMI) of 40.0-44.9 in adult Z68.41 Active 754422061 Problem Elevated erythrocyte sedimentation rate R70.0 Active 274649063 Problem Morbid (severe) obesity due to excess calories E66 .01 Active 803635553 Problem Desire for Z31.9 Active 494841873 Problem Amenorrhea N91.2 Active 18595167 Problem Generalized anxiety disorder F41.1 A ctive 72805730 Problem Primary insomnia F51.01 Active 397 2004 Problem Iron deficiency anemia secondary to inadequate d ietary iron intake D50.8 Active 661194643 Problem Unspecified mood [affective] disorder F39 Active [id number] ALLERGIES No Information ENCOUNTERS Encounter Location Date Diagnosis [facility] [place] [address] [facility] [id number] [address] [place] [address] Mar, Generalized anxiety disorder F41.1 ; Unspecified mood [affective] disorder F39 ; BMI 40.0-44.9, adult Z68.41 and Myalgia M79.1 [facility] [place] [address] [facility] [id number] [address] [place] [address] Feb, Elevated erythrocyte sedimen tation rate R70.0 [facility] [place] [address] [facility] [id number] [address] [place] [address] Feb, Elevated erythrocyte sedimen tation rate R70.0 [facility] [place] [address] [facility] [id number] [address] [place] [address] Feb, Unprotected sexual intercour se Z72.51 ; Pain in left knee M25.562 and Pain in joints of right hand M25.541 [facility] [place] [address] [facility] [id number] [address] [place] [address] Feb, Pain in left knee M25.562 an d Pain in joints of right hand M25.541 [facility] [place] [address] [place] [id number] [place] [address] Feb, Unspecified mood [affective] disorder F39 ; Generalized anxiety disorder F41.1 ; Pain in joints of right hand M25.541 ; Pain in joints of left hand M25.542 ; Pain in right knee M25.561 ; Pain in left knee M25.562 and Morbid (severe) obesity due to excess calories E66.01 [facility] [address] [id number] [address] [place] [address] Jan, Sore throat J02.9 ; Strep th roat J02.0 ; BMI 40.0-44.9, adult Z68.41 ; Dysuria R30.0 and Acute cystitis with hematuria N30.01 [place] [address] [address] Jan, [place] [address] [place] [id number] [place] [address] December, Abnormal MRI of head R93.0 [place] [address] [address] December, Subcutaneous nodules R22.9 ; Syncope, unspecified syncope type R55 ; Abnormal MRI of head R93.0 and Iron deficiency anemia secondary to inadequate dietary iron intake D50.8 [place] [address] [place] [id number] [address] [place] [address] December, [place] [address] [place] [id number] [place] [address] December, Iron deficiency anemia secon chuck to inadequate dietary iron intake D50.8 and BMI 40.0-44.9, adult Z68.41 [facility] [address] [place] [address] [id number] [address] [place] [address] Nov, Gastroenteritis K52.9 [place] [address] [address] Nov, [place] [address] [address] Nov, Bilateral hand swelling M79. 89 ; Amenorrhea N91.2 ; Desire for Z31.9 ; Amenorrhea, unspecified N91.2 ; Bilateral swelling of feet M79.89 ; Rash R21 and Iron deficiency anemia, unspecified iron deficiency anemia type D50.9 [place] [address] [address] Nov, Bilateral hand swelling M79. 89 ; Bilateral swelling of feet M79.89 and Rash R21 [place] [address] [address] Sep, Desire for Z31.9 a nd Amenorrhea N91.2 [facility] [address] [address] Aug, Scabies B86 [place] [address] [address] Aug, Amenorrhea, unspecified N91. 2 [place] [address] [address] Aug, Amenorrhea, unspecified N91. 2 [place] [address] [place] [id number] [address] [place] [address] Aug, Amenorrhea N91.2 and Iron de ficiency anemia, unspecified iron deficiency anemia type D50.9 [place] [address] [place] [id number] [address] [place] [address] Aug, Iron deficiency anemia secon chuck to inadequate dietary iron intake D50.8 ; Amenorrhea N91.2 ; Generalized anxiety disorder F41.1 ; Unspecified mood [affective] disorder F39 and Nausea R11.0 [facility] [address] [id number] [address] [place] [address] Jul, Non-intractable vomiting wit h nausea, unspecified vomiting type R11.2 and Pleurisy R09.1 [facility] [place] [address] [id number] [address] [place] [address] Jul, [facility] [place] [address] [id number] [address] [place] [address] Jun, Unspecified mood [affective] disorder F39 [place] [address] [facility] [id number] [address] [place] [address] Jun, Unspecified mood [affective] disorder F39 and Generalized anxiety disorder F41.1 [facility] [place] [address] [facility] [id number] [address] [place] [address] May, Bilious vomiting with nausea R11.14 [facility] [place] [address] [id number] [address] [place] [address] May, Unspecified mood [affective] disorder F39 ; Generalized anxiety disorder F41.1 and Iron deficiency anemia, unspecified iron deficiency anemia type D50.9 [facility] [place] [address] [facility] [id number] [address] [place] [address] Apr, Unspecified mood [affective] disorder F39 [facility] [place] [address] [facility] [id number] [address] [place] [address] Apr, Iron deficiency anemia, unsp ecified iron deficiency anemia type D50.9 [facility] [place] [address] [id number] [address] [place] [address] Apr, Iron deficiency anemia, unsp ecified iron deficiency anemia type D50.9 [facility] [place] [address] [id number] [address] [place] [address] Apr, Unspecified mood [affective] disorder F39 [facility] [place] [address] [facility] [id number] [address] [place] [address] 07 Apr, 2017 Abnormal CBC R79.89 [facility] [place] [address] [facility] [id number] [address] [place] [address] Apr, Abnormal CBC R79.89 [facility] [place] [address] [facility] [id number] [address] [place] [address] 05 Apr, 2017 Encounter to establish care with new doctor Z76.89 ; Unspecified mood [affective] disorder F39 and Primary insomnia F51.01 [facility] [place] [address] [facility] [id number] [address] [place] [phone] Mar, Unspecified mood [affective] disorder F39 and Generalized anxiety disorder F41.1 [facility] [address] [facility] [id number] [address] [place] [address] Mar, Sore throat J02.9 and Strep pharyngitis J02.0 [facility] [id number] [place] [id number] Feb, Dental examination Z01.20 [facility] [address] [place] [id number] [place] [address] [id number] Jan, Encounter for dental examina tion Z01.20 [facility] [place] [address] [id number] [address] [place] [address] Nov, Fever, unspecified R50.9 and Acute nasopharyngitis J00 [facility] [place] [address] [id number] [address] [place] [address] 18 Sep, 2015 Abdominal pain, acute, right upper quadrant 789.01 [facility] [place] [address] [facility] [id number] [address] [place] [address] Sep, [facility] [place] [address] [facility] [id number] [address] [place] [address] Aug, Irritable bowel syndrome wit h diarrhea K58.0 [facility] [place] [address] [facility] [id number] [address] [place] [address] Aug, Urinary tract infection, sit e not specified N39.0 and Back pain M54.9 [facility] [place] [address] [facility] [id number] [address] [place] [address] Mar, Abdominal pain, acute, right upper quadrant 789.01 [facility] [place] [address] [facility] [id number] [address] [place] [address] Mar, [facility] [place] [address] [place] [id number] [address] [place] [address] Mar, Nausea 787.02 and Abdominal pain, acute, right upper quadrant 789.01 [facility] [place] [address] [facility] [id number] [address] [place] [address] Mar, Nausea 787.02 and Abdominal pain 789.00 [facility] [place] [address] [place] [id number] [address] [place] [address] Mar, Nausea 787.02 [facility] [place] [address] [place] [id number] [address] [place] [address] Jan, Amenorrhea 626.0 [facility] [place] [address] [place] [id number] [address] [place] [address] Jan, Amenorrhea 626.0 and Obesity 278.00 [facility] [place] [address] [id number] [address] [place] [address] December, Amenorrhea 626.0 and Cough 7 86.2 [facility] [place] [address] [place] [id number] [address] [place] [phone] Nov, [facility] [place] [address] [facility] [id number] [address] [place] [address] Nov, [facility] [place] [address] [place] [id number] [address] [place] [address] May, [facility] [place] [address] [place] [id number] [address] [place] [address] May, [facility] [place] [address] [place] [id number] [address] [place] [address] Mar, [facility] [address] [id number] [facility] [place] [address] Mar, [facility] [address] [id number] [facility] [place] [address] Mar, [facility] [address] [id number] [facility] [place] [address] Mar, [facility] [address] [id number] [address] [place] [address], [place] [address] Mar, [facility] [address] [id number] [address] [place] [address], [place] [address] Mar, [facility] [address] [id number] [address] [place] [address], [place] [address] Mar, [facility] [address] [id number] [address] [place] [address], [place] [address] Mar, [facility] [address] [id number] [address] [place] [address], [place] [address] Mar, [facility] [address] [id number] [address] [place] [address], [place] [address] Mar, [facility] [address] [id number] [address] [place] [address], [place] [address] Mar, [facility] [address] [id number] [address] [place] [address], [place] [address] Mar, [facility] [address] [id number] [address] [place] [address], [place] [address] Mar, [facility] [address] [id number] [address] [place] [address], [place] [address] Mar, [facility] [address] [id number] [address] [place] [address], [place] [address] Mar, [facility] [address] [id number] [address] [place] [address], [place] [address] Feb, [facility] [address] [id number] [facility] [place] [address] Feb, 2013 [facility] [address] [id number] [address] [place] [address], [place] [address] Feb, 2013 [facility] [address] [id number] [address] [place] [address], [place] [address] Feb, [facility] [address] [id number] [address] [place] [address], [place] [address] Feb, 2013 [facility] [address] [id number] [address] [place] [address], [place] [address] Feb, 2013 [facility] [address] [id number] [address] [place] [address], [place] [address] Feb, [facility] [address] [id number] [address] [place] [address], [place] [address] Feb, [facility] [address] [id number] [address] [place] [address], [place] [address] Feb, 2013 [facility] [address] [id number] [address] [place] [address], [place] [address] Feb, 2013 [facility] [address] [id number] [address] [place] [address], [place] [address] Feb, 2013 [facility] [address] [id number] [address] [place] [address], [place] [address] Feb, [facility] [address] [id number] [address] [place] [address], [place] [address] Feb, [facility] [address] [id number] [address] [place] [address], [place] [address] Feb, [facility] [address] [id number] [address] [place] [address], [place] [address] Feb, [facility] [address] [id number] [address] [place] [address], [place] [address] Jan, [facility] [address] [id number] [address] [place] [address], [place] [address] Jan, [facility] [address] [id number] [facility] [place] [address] Jan, [facility] [address] [id number] [facility] [place] [address] Jan, [facility] [address] [id number] [facility] [place] [address] Jan, [facility] [address] [id number] [facility] [place] [address] Jan, [facility] [address] [id number] [facility] [place] [address] Jan, [facility] [address] [id number] [address] [place] [address], [place] [address] Jan, [facility] [address] [id number] [address] [place] [address], [place] [address] Jan, [facility] [address] [id number] [address] [place] [address], [place] [address] Jan, [facility] [address] [id number] [address] [place] [address], [place] [address] Jan, [facility] [address] [id number] [address] [place] [address], [place] [address] Jan, [facility] [address] [id number] [address] [place] [address], [place] [address] Jan, [facility] [address] [id number] [address] [place] [address], [place] [address] December, [facility] [address] [id number] [address] [place] [address], [place] [address] December, [facility] [address] [id number] [address] [place] [address], [place] [address] December, [facility] [address] [id number] [address] [place] [address], [place] [address] December, [facility] [address] [id number] [address] [place] [address], [place] [address] December, [facility] [address] [id number] [address] [place] [address], [place] [address] December, [facility] [address] [id number] [address] [place] [address], [place] [address] December, [facility] [address] [id number] [address] [place] [address], [place] [address] December, [facility] [address] [id number] [address] [place] [address], [place] [address] December, [facility] [address] [id number] [address] [place] [address], [place] [address] December, [facility] [address] [id number] [address] [place] [address], [place] [address] December, [facility] [address] [id number] [address] [place] [address], [place] [address] December, [facility] [address] [id number] [address] [place] [address], [place] [address] Nov, [facility] [address] [id number] [address] [place] [address], [place] [address] Nov, [facility] [address] [id number] [address] [place] [address], [place] [address] Oct, [facility] [address] [id number] [address] [place] [address], [place] [address] Oct, [facility] [address] [id number] [address] [place] [address], [place] [address] Oct, [facility] [address] [id number] [address] [place] [address], [place] [address] Oct, [facility] [address] [id number] [address] [place] [address], [place] [address] Oct, [facility] [address] [id number] [address] [place] [address], [place] [address] Oct, [facility] [address] [id number] [facility] [place] [address] 19 Oct, 2013 [facility] [address] [id number] [address] [place] [address], [place] [address] 19 Oct, 2013 [facility] [address] [id number] [facility] [place] [address] 18 Oct, 2013 [facility] [address] [id number] [address] [place] [address], [place] [address] 08 Oct, 2013 [facility] [address] [id number] [address] [place] [address], [place] [address] 07 Oct, 2013 [facility] [address] [id number] [address] [place] [address], [place] [address] 06 Oct, 2013 [facility] [address] [id number] [address] [place] [address], [place] [address] 06 Oct, 2013 [facility] [address] [id number] [address] [place] [address], [place] [address] 05 Oct, 2013 [facility] [address] [id number] [address] [place] [address], [place] [address] 05 Oct, 2013 [facility] [address] [id number] [address] [place] [address], [place] [address] Oct, [facility] [address] [id number] [address] [place] [address], [place] [address] Oct, [facility] [address] [id number] [address] [place] [address], [place] [address] Sep, [facility] [address] [id number] [address] [place] [address], [place] [address] Sep, [facility] [address] [id number] [address] [place] [address], [place] [address] Sep, [facility] [address] [id number] [address] [place] [address], [place] [address] Jun, [facility] [address] [id number] [address] [place] [address], [place] [address] Jun, [facility] [address] [id number] [address] [place] [address], [place] [address] Jun, [facility] [address] [id number] [address] [place] [address], [place] [address] Jun, [facility] [address] [id number] [address] [place] [address], [place] [address] Jun, [facility] [address] [id number] [address] [place] [address], [place] [address] Jun, [facility] [address] [id number] [address] [place] [address], [place] [address] May, [facility] [address] [id number] [address] [place] [address], [place] [address] May, [facility] [address] [id number] [address] [place] [address], [place] [address] May, [facility] [address] [id number] [address] [place] [address], [place] [address] May, [facility] [address] [id number] [address] [place] [address], [place] [address] May, [facility] [address] [id number] [address] [place] [id number] May, [facility] [address] [id number] [address] [place] [address], [place] [address] 26 Apr, 2013 [facility] [address] [id number] [address] [place] [id number] 24 Apr, 2013 [facility] [address] [id number] [address] [place] [address], [place] [address] 23 Apr, 2013 [facility] [address] [id number] [address] [place] [address], [place] [address] 20 Apr, 2013 [facility] [address] [id number] [address] [place] [address], [place] [address] 19 Apr, 2013 [facility] [address] [id number] [address] [place] [address], [place] [address] 17 Sep, 2012 [facility] [address] [id number] [address] [place] [address], [place] [address] 13 Sep, 2012 [facility] [address] [id number] [address] [place] [address], [place] [address] 11 Apr, 2012 [facility] [address] [id number] [address] [place] [address], [place] [address] 09 Apr, 2012 [facility] [address] [id number] [address] [place] [address], [place] [address] 05 Apr, 2012 [facility] [address] [id number] [address] [place] [address], [place] [address] Mar, [facility] [address] [id number] [address] [place] [address], [place] [address] Nov, [facility] [address] [id number] [address] [place] [address], [place] [address] Oct, [facility] [address] [id number] [address] [place] [address], [place] [address] Oct, [facility] [address] [id number] [address] [place] [address], [place] [address] Sep, [facility] [address] [id number] [address] [place] [address], [place] [address] May, [facility] [address] [id number] [address] [place] [address], [place] [address] 27 May, 2012 [facility] [address] [id number] [address] [place] [address], [place] [address] May, [facility] [address] [id number] [address] [place] [address], [place] [address] 11 May, 2012 [facility] [address] [id number] [address] [place] [address], [place] [address] 24 Apr, 2012 [facility] [address] [id number] [address] [place] [address], [place] [address] 06 Apr, 2012 [facility] [place] [address] [id number] [address] [place] [id number] Mar, [facility] [place] [address] [id number] [address] [place] [id number] Feb, [facility] [place] [address] [id number] [address] [place] [id number] Jul, [facility] [place] [address] [id number] [address] [place] [id number] Jul, [facility] [place] [address] [id number] [address] [place] [id number] Jul, [facility] [place] [address] [id number] [address] [place] [id number] December, [facility] [place] [address] [id number] [address] [place] [id number] December, [facility] [place] [address] [id number] [address] [place] [id number] Oct, IMMUNIZATIONS No Known Immunizations SOCIAL HISTORY [...]
--- OUTSIDE RECORDS SUMMARY | 2019-10-07 05:33 | XMS REPORT ---
Author Author Jailene ALVES Organization [facility] Address [address] [place] [address] Care Team Providers Care Scourer Name Role Phone ALVESWANDARYL Unavailable PROBLEMS Type Condition ICD9-CM Code [id number] Code Onset Dates Condition S tatus SNOMED Code Problem Body mass index (BMI) of 40.0-44.9 in adult Z68.41 Active 346344185 Problem Elevated erythrocyte sedimentation rate R70.0 Active 685555112 Problem Morbid (severe) obesity due to excess calories E66 .01 Active 002013689 Problem Desire for Z31.9 Active 898219909 Problem Amenorrhea N91.2 Active 38888298 Problem Generalized anxiety disorder F41.1 A ctive 04104807 Problem Primary insomnia F51.01 Active 397 2004 Problem Iron deficiency anemia secondary to inadequate d ietary iron intake D50.8 Active 366083588 Problem Unspecified mood [affective] disorder F39 Active 90373612 ALLERGIES No Information ENCOUNTERS Encounter Location Date Diagnosis [facility] [address] [facility] [id number] [address] [place] [address] Mar, Generalized anxiety disorder F41.1 ; Unspecified mood [affective] disorder F39 ; BMI 40.0-44.9, adult Z68.41 and Myalgia M79.1 [facility] [address] [facility] [id number] [address] [place] [address] Feb, Elevated erythrocyte sedimen tation rate R70.0 [facility] [address] [facility] [id number] [address] [place] [address] Feb, Elevated erythrocyte sedimen tation rate R70.0 [facility] [address] [facility] [id number] [address] [place] [address] Feb, Unprotected sexual intercour se Z72.51 ; Pain in left knee M25.562 and Pain in joints of right hand M25.541 [facility] [address] [facility] [id number] [address] [place] [address] Feb, Pain in left knee M25.562 an d Pain in joints of right hand M25.541 [facility] [address] [place] [id number] [place] [address] Feb, Unspecified mood [affective] disorder F39 ; Generalized anxiety disorder F41.1 ; Pain in joints of right hand M25.541 ; Pain in joints of left hand M25.542 ; Pain in right knee M25.561 ; Pain in left knee M25.562 and Morbid (severe) obesity due to excess calories E66.01 [facility] [address] [id number] [address] [place] [address] Jan, Sore throat J02.9 ; Strep th roat J02.0 ; BMI 40.0-44.9, adult Z68.41 ; Dysuria R30.0 and Acute cystitis with hematuria N30.01 [place] [address] [address] Jan, [place] [address] [place] [id number] [place] [address] December, Abnormal MRI of head R93.0 [place] [address] [address] December, Subcutaneous nodules R22.9 ; Syncope, unspecified syncope type R55 ; Abnormal MRI of head R93.0 and Iron deficiency anemia secondary to inadequate dietary iron intake D50.8 [place] [address] [place] [id number] [address] [place] [address] December, [place] [address] [place] [id number] [place] [address] December, Iron deficiency anemia secon chuck to inadequate dietary iron intake D50.8 and BMI 40.0-44.9, adult Z68.41 [facility] [address] [place] [id number] [address] [place] [address] Nov, Gastroenteritis K52.9 [place] [address] [address] Nov, [place] [address] [address] Nov, Bilateral hand swelling M79. 89 ; Amenorrhea N91.2 ; Desire for Z31.9 ; Amenorrhea, unspecified N91.2 ; Bilateral swelling of feet M79.89 ; Rash R21 and Iron deficiency anemia, unspecified iron deficiency anemia type D50.9 [place] [address] [address] Nov, Bilateral hand swelling M79. 89 ; Bilateral swelling of feet M79.89 and Rash R21 [place] [address] [address] Sep, Desire for Z31.9 a nd Amenorrhea N91.2 [facility] [address] [address] Aug, Scabies B86 [place] [address] [address] Aug, Amenorrhea, unspecified N91. 2 [place] [address] [address] Aug, Amenorrhea, unspecified N91. 2 [place] [address] [place] [id number] [address] [place] [address] Aug, Amenorrhea N91.2 and Iron de ficiency anemia, unspecified iron deficiency anemia type D50.9 [place] [address] [place] [id number] [place] [address] Aug, Iron deficiency anemia secon chuck to inadequate dietary iron intake D50.8 ; Amenorrhea N91.2 ; Generalized anxiety disorder F41.1 ; Unspecified mood [affective] disorder F39 and Nausea R11.0 [facility] [address] [id number] [address] [place] [address] Jul, Non-intractable vomiting wit h nausea, unspecified vomiting type R11.2 and Pleurisy R09.1 [facility] [address] [id number] [address] [place] [address] Jul, [facility] [address] [id number] [address] [place] [address] Jun, Unspecified mood [affective] disorder F39 [place] [address] [facility] [id number] [address] [place] [address] Jun, Unspecified mood [affective] disorder F39 and Generalized anxiety disorder F41.1 [facility] [address] [facility] [id number] [address] [place] [address] May, Bilious vomiting with nausea R11.14 [facility] [address] [id number] [address] [place] [address] May, Unspecified mood [affective] disorder F39 ; Generalized anxiety disorder F41.1 and Iron deficiency anemia, unspecified iron deficiency anemia type D50.9 [facility] [address] [facility] [id number] [address] [place] [address] Apr, Unspecified mood [affective] disorder F39 [facility] [address] [facility] [id number] [address] [place] [address] Apr, Iron deficiency anemia, unsp ecified iron deficiency anemia type D50.9 [facility] [address] [id number] [address] [place] [address] Apr, Iron deficiency anemia, unsp ecified iron deficiency anemia type D50.9 [facility] [address] [id number] [address] [place] [address] Apr, Unspecified mood [affective] disorder F39 [facility] [address] [facility] [id number] [address] [place] [address] 07 Apr, 2017 Abnormal CBC R79.89 [facility] [address] [facility] [id number] [address] [place] [address] Apr, Abnormal CBC R79.89 [facility] [address] [facility] [id number] [address] [place] [address] 05 Apr, 2017 Encounter to establish care with new doctor Z76.89 ; Unspecified mood [affective] disorder F39 and Primary insomnia F51.01 [facility] [address] [facility] [id number] [address] [place] [address] Mar, Unspecified mood [affective] disorder F39 and Generalized anxiety disorder F41.1 [facility] [address] [facility] [id number] [address] [place] [address] Mar, Sore throat J02.9 and Strep pharyngitis J02.0 [facility] [id number] [place] [id number] Feb, Dental examination Z01.20 [facility] [address] [place] [id number] [place] [id number] Jan, Encounter for dental examina tion Z01.20 [facility] [address] [place] [id number] [place] [address] Nov, Fever, unspecified R50.9 and Acute nasopharyngitis J00 [facility] [address] [place] [id number] [address] [place] [address] 18 Sep, 2015 Abdominal pain, acute, right upper quadrant 789.01 [facility] [address] [facility] [id number] [address] [place] [address] Sep, [facility] [address] [facility] [id number] [address] [place] [address] Aug, Irritable bowel syndrome wit h diarrhea K58.0 [facility] [address] [facility] [id number] [address] [place] [address] Aug, Urinary tract infection, sit e not specified N39.0 and Back pain M54.9 [facility] [address] [facility] [id number] [address] [place] [address] Mar, Abdominal pain, acute, right upper quadrant 789.01 [facility] [address] [facility] [id number] [address] [place] [address] Mar, [facility] [address] [place] [id number] [address] [place] [address] Mar, Nausea 787.02 and Abdominal pain, acute, right upper quadrant 789.01 [facility] [address] [facility] [id number] [address] [place] [address] Mar, Nausea 787.02 and Abdominal pain 789.00 [facility] [address] [place] [id number] [address] [place] [address] Mar, Nausea 787.02 [facility] [address] [place] [id number] [address] [place] [address] Jan, Amenorrhea 626.0 [facility] [address] [place] [address] [id number] [place] [address] Jan, Amenorrhea 626.0 and Obesity 278.00 [facility] [address] [place] [id number] [place] [address] December, Amenorrhea 626.0 and Cough 7 86.2 [facility] [address] [place] [id number] [place] [address] Nov, [facility] [address] [facility] [id number] [address] [place] [address] Nov, [facility] [address] [place] [id number] [address] [place] [address] May, [facility] [address] [place] [id number] [address] [place] [address] May, [facility] [address] [place] [id number] [place] [address] Mar, [facility] [address] [id number] [facility] [place] [address] Mar, [facility] [address] [id number] [facility] [place] [address] Mar, [facility] [address] [id number] [facility] [place] [address] Mar, [facility] [address] [id number] [address] [place] [address], [place] [address] Mar, [facility] [address] [id number] [address] [place] [address], [place] [address] Mar, [facility] [address] [id number] [address] [place] [address], [place] [address] Mar, [facility] [address] [id number] [address] [place] [address], [place] [address] Mar, [facility] [address] [id number] [address] [place] [address], [place] [address] Mar, [facility] [address] [id number] [address] [place] [address], [place] [address] Mar, [facility] [address] [id number] [address] [place] [address], [place] [address] Mar, [facility] [address] [id number] [address] [place] [address], [place] [address] Mar, [facility] [address] [id number] [address] [place] [address], [place] [address] Mar, [facility] [address] [id number] [address] [place] [address], [place] [address] Mar, [facility] [address] [id number] [address] [place] [address], [place] [address] Mar, [facility] [address] [id number] [address] [place] [address], [place] [address] Feb, [facility] [address] [id number] [facility] [place] [address] Feb, 2013 [facility] [address] [id number] [address] [place] [address], [place] [address] Feb, 2013 [facility] [address] [id number] [address] [place] [address], [place] [address] Feb, [facility] [address] [id number] [address] [place] [address], [place] [address] Feb, 2013 [facility] [address] [id number] [address] [place] [address], [place] [address] Feb, 2013 [facility] [address] [id number] [address] [place] [address], [place] [address] Feb, [facility] [address] [id number] [address] [place] [address], [place] [address] Feb, [facility] [address] [id number] [address] [place] [address], [place] [address] Feb, 2013 [facility] [address] [id number] [address] [place] [address], [place] [address] Feb, 2013 [facility] [address] [id number] [address] [place] [address], [place] [address] Feb, 2013 [facility] [address] [id number] [address] [place] [address], [place] [address] Feb, [facility] [address] [id number] [address] [place] [address], [place] [address] Feb, [facility] [address] [id number] [address] [place] [address], [place] [address] Feb, [facility] [address] [id number] [address] [place] [address], [place] [address] Feb, [facility] [address] [id number] [address] [place] [address], [place] [address] Jan, [facility] [address] [id number] [address] [place] [address], [place] [address] Jan, [facility] [address] [id number] [facility] [place] [address] Jan, [facility] [address] [id number] [facility] [place] [address] Jan, [facility] [address] [id number] [facility] [place] [address] Jan, [facility] [address] [id number] [facility] [place] [address] Jan, [facility] [address] [id number] [facility] [place] [address] Jan, [facility] [address] [id number] [address] [place] [address], [place] [address] Jan, [facility] [address] [id number] [address] [place] [address], [place] [address] Jan, [facility] [address] [id number] [address] [place] [address], [place] [address] Jan, [facility] [address] [id number] [address] [place] [address], [place] [address] Jan, [facility] [address] [id number] [address] [place] [address], [place] [address] Jan, [facility] [address] [id number] [address] [place] [address], [place] [address] Jan, [facility] [address] [id number] [address] [place] [address], [place] [address] December, [facility] [address] [id number] [address] [place] [address], [place] [address] December, [facility] [address] [id number] [address] [place] [address], [place] [address] December, [facility] [address] [id number] [address] [place] [address], [place] [address] December, [facility] [address] [id number] [address] [place] [address], [place] [address] December, [facility] [address] [id number] [address] [place] [address], [place] [address] December, [facility] [address] [id number] [address] [place] [address], [place] [address] December, [facility] [address] [id number] [address] [place] [address], [place] [address] December, [facility] [address] [id number] [address] [place] [address], [place] [address] December, [facility] [address] [id number] [address] [place] [address], [place] [address] December, [facility] [address] [id number] [address] [place] [address], [place] [address] December, [facility] [address] [id number] [address] [place] [address], [place] [address] December, [facility] [address] [id number] [address] [place] [address], [place] [address] Nov, [facility] [address] [id number] [address] [place] [address], [place] [address] Nov, [facility] [address] [id number] [address] [place] [address], [place] [address] Oct, [facility] [address] [id number] [address] [place] [address], [place] [address] Oct, [facility] [address] [id number] [address] [place] [address], [place] [address] Oct, [facility] [address] [id number] [address] [place] [address], [place] [address] Oct, [facility] [address] [id number] [address] [place] [address], [place] [address] Oct, [facility] [address] [id number] [address] [place] [address], [place] [address] Oct, [facility] [address] [id number] [facility] [place] [address] 19 Oct, 2013 [facility] [address] [id number] [address] [place] [address], [place] [address] 19 Oct, 2013 [facility] [address] [id number] [facility] [place] [address] 18 Oct, 2013 [facility] [address] [id number] [address] [place] [address], [place] [address] 08 Oct, 2013 [facility] [address] [id number] [address] [place] [address], [place] [address] 07 Oct, 2013 [facility] [address] [id number] [address] [place] [address], [place] [address] 06 Oct, 2013 [facility] [address] [id number] [address] [place] [address], [place] [address] 06 Oct, 2013 [facility] [address] [id number] [address] [place] [address], [place] [address] 05 Oct, 2013 [facility] [address] [id number] [address] [place] [address], [place] [address] 05 Oct, 2013 [facility] [address] [id number] [address] [place] [address], [place] [address] Oct, [facility] [address] [id number] [address] [place] [address], [place] [address] Oct, [facility] [address] [id number] [address] [place] [address], [place] [address] Sep, [facility] [address] [id number] [address] [place] [address], [place] [address] Sep, [facility] [address] [id number] [address] [place] [address], [place] [address] Sep, [facility] [address] [id number] [address] [place] [address], [place] [address] Jun, [facility] [address] [id number] [address] [place] [address], [place] [address] Jun, [facility] [address] [id number] [address] [place] [address], [place] [address] Jun, [facility] [address] [id number] [address] [place] [address], [place] [address] Jun, [facility] [address] [id number] [address] [place] [address], [place] [address] Jun, [facility] [address] [id number] [address] [place] [address], [place] [address] Jun, [facility] [address] [id number] [address] [place] [address], [place] [address] May, [facility] [address] [id number] [address] [place] [address], [place] [address] May, [facility] [address] [id number] [address] [place] [address], [place] [address] May, [facility] [address] [id number] [address] [place] [address], [place] [address] May, [facility] [address] [id number] [address] [place] [address], [place] [address] May, [facility] [address] [id number] [address] [place] [address] May, [facility] [address] [id number] [address] [place] [address], [place] [address] 26 Apr, 2013 [facility] [address] [id number] [address] [place] [id number] 24 Apr, 2013 [facility] [address] [id number] [address] [place] [address], [place] [id number] 23 Apr, 2013 [facility] [address] [id number] [address] [place] [address], [place] [address] 20 Apr, 2013 [facility] [address] [id number] [address] [place] [address], [place] [address] 19 Apr, 2013 [facility] [address] [id number] [address] [place] [address], [place] [id number] 17 Sep, 2012 [facility] [address] [id number] [address] [place] [address], [place] [address] 13 Sep, 2012 [facility] [address] [id number] [address] [place] [address], [place] [address] 11 Apr, 2012 [facility] [address] [id number] [address] [place] [address], [place] [address] 09 Apr, 2012 [facility] [address] [id number] [address] [place] [address], [place] [id number] 05 Apr, 2012 [facility] [address] [id number] [address] [place] [address], [place] [address] Mar, [facility] [address] [id number] [address] [place] [address], [place] [address] Nov, [facility] [address] [id number] [address] [place] [address], [place] [address] Oct, [facility] [address] [id number] [address] [place] [address], [place] [address] Oct, [facility] [address] [id number] [address] [place] [address], [place] [address] Sep, [facility] [address] [id number] [address] [place] [address], [place] [address] May, [facility] [address] [id number] [address] [place] [address], [place] [address] 27 May, 2012 [facility] [address] [id number] [address] [place] [address], [place] [address] May, [facility] [address] [id number] [address] [place] [address], [place] [address] 11 May, 2012 [facility] [address] [id number] [address] [place] [address], [place] [address] 24 Apr, 2012 [facility] [address] [id number] [address] [place] [address], [place] [address] 06 Apr, 2012 [facility] [address] [id number] [address] [place] [id number] Mar, [facility] [address] [id number] [address] [place] [id number] Feb, [facility] [address] [id number] [address] [place] [id number] Jul, [facility] [address] [id number] [address] [place] [id number] Jul, [facility] [address] [id number] [address] [place] [id number] Jul, [facility] [address] [id number] [address] [place] [id number] December, [facility] [address] [id number] [address] [place] [id number] December, [facility] [address] [id number] [address] [place] [id number] Oct, IMMUNIZATIONS No Known Immunizations SOCIAL HISTORY Never Assessed REASON FOR VISIT updated order PLAN OF CARE VITAL SIGNS MEDICATIONS No [...]
--- OUTSIDE RECORDS SUMMARY | 2019-10-07 05:33 | XMS REPORT ---
Author Author Jailene ALVES Organization [facility] Address [address] [place] [address] Care Team Providers Care Quality Worker Name Role Phone JOSELYNWANDARYL Unavailable PROBLEMS Type Condition ICD9-CM Code ZNS74-RD Code Onset Dates Condition S tatus SNOMED Code Problem Body mass index (BMI) of 40.0-44.9 in adult Z68.41 Active 544569994 Problem Elevated erythrocyte sedimentation rate R70.0 Active 010739375 Problem Morbid (severe) obesity due to excess calories E66 .01 Active 363125576 Problem Desire for Z31.9 Active 770575077 Problem Amenorrhea N91.2 Active 33360135 Problem Generalized anxiety disorder F41.1 A ctive 51000437 Problem Primary insomnia F51.01 Active 397 2004 Problem Iron deficiency anemia secondary to inadequate d ietary iron intake D50.8 Active 995337456 Problem Unspecified mood [affective] disorder F39 Active 65004584 ALLERGIES Substance Reaction Event Type Date Status Lamotrigine rash Drug Allergy December, Active Abigail Unknown Drug Allergy December, Active ENCOUNTERS Encounter Location Date Diagnosis [facility] [address] [facility] [id number] [address] [place] [address] Mar, Generalized anxiety disorder F41.1 ; Unspecified mood [affective] disorder F39 ; BMI 40.0-44.9, adult Z68.41 and Myalgia M79.1 [facility] [address] [facility] [id number] [address] [place] [address] Feb, Elevated erythrocyte sedimen tation rate R70.0 [facility] [address] [facility] [id number] [address] [place] [address] Feb, Elevated erythrocyte sedimen tation rate R70.0 [facility] [address] [place] [id number] [address] [place] [address] Feb, Unprotected sexual intercour se Z72.51 ; Pain in left knee M25.562 and Pain in joints of right hand M25.541 [facility] [address] [address] Feb, Pain in left knee M25.562 an d Pain in joints of right hand M25.541 [place] [address] [address] Feb, Unspecified mood [affective] disorder F39 ; Generalized anxiety disorder F41.1 ; Pain in joints of right hand M25.541 ; Pain in joints of left hand M25.542 ; Pain in right knee M25.561 ; Pain in left knee M25.562 and Morbid (severe) obesity due to excess calories E66.01 [facility] [address] [address] Jan, Sore throat J02.9 ; Strep th roat J02.0 ; BMI 40.0-44.9, adult Z68.41 ; Dysuria R30.0 and Acute cystitis with hematuria N30.01 [place] [address] [place] [id number] [address] [place] [address] Jan, [place] [address] [address] December, Abnormal MRI of head R93.0 [place] [address] [address] December, Subcutaneous nodules R22.9 ; Syncope, unspecified syncope type R55 ; Abnormal MRI of head R93.0 and Iron deficiency anemia secondary to inadequate dietary iron intake D50.8 [place] [address] [address] December, [place] [address] [address] December, Iron deficiency anemia secon chuck to inadequate dietary iron intake D50.8 and BMI 40.0-44.9, adult Z68.41 [facility] [address] [address] Nov, Gastroenteritis K52.9 [place] [address] [address] Nov, [place] [address] [address] Nov, Bilateral hand swelling M79. 89 ; Amenorrhea N91.2 ; Desire for Z31.9 ; Amenorrhea, unspecified N91.2 ; Bilateral swelling of feet M79.89 ; Rash R21 and Iron deficiency anemia, unspecified iron deficiency anemia type D50.9 [place] [address] [address] Nov, Bilateral hand swelling M79. 89 ; Bilateral swelling of feet M79.89 and Rash R21 [place] [address] [address] Sep, Desire for Z31.9 a nd Amenorrhea N91.2 [facility] [address] [address] Aug, Scabies B86 [place] [address] [address] Aug, Amenorrhea, unspecified N91. 2 [place] [address] [address] Aug, Amenorrhea, unspecified N91. 2 [place] [address] [address] Aug, Amenorrhea N91.2 and Iron de ficiency anemia, unspecified iron deficiency anemia type D50.9 [place] [address] [address] Aug, Iron deficiency anemia secon chuck to inadequate dietary iron intake D50.8 ; Amenorrhea N91.2 ; Generalized anxiety disorder F41.1 ; Unspecified mood [affective] disorder F39 and Nausea R11.0 [facility] [address] [facility] [id number] [address] [place] [address] Jul, Non-intractable vomiting wit h nausea, unspecified vomiting type R11.2 and Pleurisy R09.1 [facility] [address] [place] [id number] [address] [place] [address] Jul, [facility] [address] [place] [id number] [address] [place] [address] Jun, Unspecified mood [affective] disorder F39 [place] [address] [place] [id number] [place] [address] Jun, Unspecified mood [affective] disorder F39 and Generalized anxiety disorder F41.1 [facility] [address] [place] [address] May, Bilious vomiting with nausea R11.14 [facility] [address] [place] [id number] [address] [place] [address] May, Unspecified mood [affective] disorder F39 ; Generalized anxiety disorder F41.1 and Iron deficiency anemia, unspecified iron deficiency anemia type D50.9 [facility] [address] [place] [id number] [address] [place] [address] Apr, Unspecified mood [affective] disorder F39 [facility] [address] [place] [id number] [address] [place] [address] Apr, Iron deficiency anemia, unsp ecified iron deficiency anemia type D50.9 [place] [address] [place] [id number] [address] [place] [address] Apr, Iron deficiency anemia, unsp ecified iron deficiency anemia type D50.9 [facility] [address] [place] [id number] [address] [place] [address] Apr, Unspecified mood [affective] disorder F39 [facility] [address] [facility] [id number] [address] [place] [address] 07 Apr, 2017 Abnormal CBC R79.89 [facility] [address] [facility] [id number] [address] [place] [address] 07 Apr, 2017 Abnormal CBC R79.89 [facility] [address] [facility] [id number] [address] [place] [address] 05 Apr, 2017 Encounter to establish care with new doctor Z76.89 ; Unspecified mood [affective] disorder F39 and Primary insomnia F51.01 [facility] [address] [facility] [id number] [address] [place] [address] Mar, Unspecified mood [affective] disorder F39 and Generalized anxiety disorder F41.1 [facility] [address] [facility] [id number] [address] [place] [address] Mar, Sore throat J02.9 and Strep pharyngitis J02.0 [facility] [address] [place] [id number] Feb, Dental examination Z01.20 [facility] [address] [id number] Jan, Encounter for dental examina tion Z01.20 [facility] [address] [facility] [id number] [address] [place] [address] Nov, Fever, unspecified R50.9 and Acute nasopharyngitis J00 [facility] [address] [facility] [id number] [address] [place] [address] 18 Sep, 2015 Abdominal pain, acute, right upper quadrant 789.01 [facility] [address] [facility] [id number] [address] [place] [address] 10 Sep, 2015 [facility] [address] [facility] [id number] [address] [place] [address] Aug, Irritable bowel syndrome wit h diarrhea K58.0 [facility] [address] [place] [id number] [address] [place] [address] Aug, Urinary tract infection, sit e not specified N39.0 and Back pain M54.9 [facility] [address] [place] [id number] [address] [place] [address] Mar, Abdominal pain, acute, right upper quadrant 789.01 [facility] [address] [address] Mar, [facility] [address] [address] Mar, Nausea 787.02 and Abdominal pain, acute, right upper quadrant 789.01 [facility] [address] [address] Mar, Nausea 787.02 and Abdominal pain 789.00 [facility] [address] [address] Mar, Nausea 787.02 [facility] [address] [address] Jan, Amenorrhea 626.0 [place] [address] [address] Jan, Amenorrhea 626.0 and Obesity 278.00 [facility] [address] [address] December, Amenorrhea 626.0 and Cough 7 86.2 [facility] [address] [place] [id number] [address] [place] [address] Nov, [facility] [address] [address] Nov, [facility] [address] [place] [id number] [place] [address] May, [facility] [address] [address] May, [facility] [address] [id number] [address] [place] [address], [place] [address] Mar, [facility] [address] [id number] [address] [place] [address], [place] [address] Mar, [facility] [address] [id number] [address] [place] [address], [place] [address] Mar, [facility] [address] [id number] [address] [place] [address], [place] [address] Mar, [facility] [address] [id number] [address] [place] [address], [place] [address] Mar, [facility] [address] [id number] [address] [place] [address], [place] [address] Mar, [facility] [address] [id number] [address] [place] [address], [place] [address] Mar, [facility] [address] [id number] [address] [place] [address], [place] [address] Mar, [facility] [address] [id number] [address] [place] [address], [place] [address] Mar, [facility] [address] [id number] [address] [place] [address], [place] [address] Mar, [facility] [address] [id number] [address] [place] [address], [place] [address] Mar, [facility] [address] [id number] [address] [place] [address], [place] [address] Mar, [facility] [address] [id number] [address] [place] [address], [place] [address] Mar, [facility] [address] [id number] [address] [place] [address], [place] [address] Mar, [facility] [address] [id number] [address] [place] [address], [place] [address] Mar, [facility] [address] [id number] [address] [place] [address], [place] [address] Feb, 2013 [facility] [address] [id number] [address] [place] [address], [place] [address] Feb, 2013 [facility] [address] [id number] [address] [place] [address], [place] [address] Feb, 2013 [facility] [address] [id number] [address] [place] [address], [place] [address] Feb, 2013 [facility] [address] [id number] [address] [place] [address], [place] [address] Feb, 2013 [facility] [address] [id number] [address] [place] [address], [place] [address] Feb, 2013 [facility] [address] [id number] [address] [place] [address], [place] [address] Feb, 2013 [facility] [address] [id number] [address] [place] [address], [place] [address] Feb, 2013 [facility] [address] [id number] [address] [place] [address], [place] [address] Feb, 2013 [facility] [address] [id number] [address] [place] [address], [place] [address] Feb, 2013 [facility] [address] [id number] [address] [place] [address], [place] [address] Feb, 2013 [facility] [address] [id number] [address] [place] [address], [place] [address] Feb, 2013 [facility] [address] [id number] [address] [place] [address], [place] [address] Feb, 2013 [facility] [address] [id number] [address] [place] [address], [place] [address] Feb, 2013 [facility] [address] [id number] [address] [place] [address], [place] [address] Feb, 2013 [facility] [address] [id number] [address] [place] [address], [place] [address] Jan, [facility] [address] [id number] [facility] [place] [address] Jan, [facility] [address] [id number] [facility] [place] [address] Jan, [facility] [address] [id number] [facility] [place] [address] Jan, [facility] [address] [id number] [facility] [place] [address] Jan, [facility] [address] [id number] [facility] [place] [address] Jan, [facility] [address] [id number] [facility] [place] [address] Jan, [facility] [address] [id number] [address] [place] [address], [place] [address] Jan, [facility] [address] [id number] [address] [place] [address], [place] [address] Jan, [facility] [address] [id number] [address] [place] [address], [place] [address] Jan, [facility] [address] [id number] [address] [place] [address], [place] [address] Jan, [facility] [address] [id number] [address] [place] [address], [place] [address] Jan, [facility] [address] [id number] [address] [place] [address], [place] [address] Jan, [facility] [address] [id number] [address] [place] [address], [place] [address] December, [facility] [address] [id number] [address] [place] [address], [place] [address] December, [facility] [address] [id number] [address] [place] [address], [place] [address] December, [facility] [address] [id number] [address] [place] [address], [place] [address] December, [facility] [address] [id number] [facility] [place] [address] December, [facility] [address] [id number] [facility] [place] [address] December, [facility] [address] [id number] [address] [place] [address], [place] [address] December, [facility] [address] [id number] [address] [place] [address], [place] [address] December, [facility] [address] [id number] [address] [place] [address], [place] [address] December, [facility] [address] [id number] [address] [place] [address], [place] [address] December, [facility] [address] [id number] [address] [place] [address], [place] [address] December, [facility] [address] [id number] [address] [place] [address], [place] [address] December, [facility] [address] [id number] [address] [place] [address], [place] [address] Nov, [facility] [address] [id number] [address] [place] [address], [place] [address] Nov, [facility] [address] [id number] [address] [place] [address], [place] [address] Oct, [facility] [address] [id number] [address] [place] [address], [place] [address] Oct, [facility] [address] [id number] [address] [place] [address], [place] [address] Oct, [facility] [address] [id number] [address] [place] [address], [place] [address] Oct, [facility] [address] [id number] [address] [place] [address], [place] [address] Oct, [facility] [address] [id number] [address] [place] [address], [place] [address] 19 Oct, 2013 [facility] [address] [id number] [facility] [place] [address] 19 Oct, 2013 [facility] [address] [id number] [facility] [place] [address] 19 Oct, 2013 [facility] [address] [id number] [facility] [place] [address] 18 Oct, 2013 [facility] [address] [id number] [address] [place] [address], [place] [address] 08 Oct, 2013 [facility] [address] [id number] [address] [place] [address], [place] [address] 07 Oct, 2013 [facility] [address] [id number] [address] [place] [address], [place] [address] 06 Oct, 2013 [facility] [address] [id number] [address] [place] [address], [place] [address] 06 Oct, 2013 [facility] [address] [id number] [address] [place] [address], [place] [address] 05 Oct, 2013 [facility] [address] [id number] [address] [place] [address], [place] [address] 05 Oct, 2013 [facility] [address] [id number] [address] [place] [address], [place] [address] Oct, [facility] [address] [id number] [address] [place] [address], [place] [address] 05 Oct, 2013 [facility] [address] [id number] [address] [place] [address], [place] [address] Sep, [facility] [address] [id number] [address] [place] [address], [place] [address] Sep, [facility] [address] [id number] [address] [place] [address], [place] [address] Sep, [facility] [address] [id number] [address] [place] [address], [place] [address] Jun, [facility] [address] [id number] [address] [place] [address], [place] [address] Jun, [facility] [address] [id number] [address] [place] [address], [place] [address] Jun, [facility] [address] [id number] [address] [place] [address], [place] [address] Jun, [facility] [address] [id number] [address] [place] [address], [place] [address] Jun, [facility] [address] [id number] [address] [place] [address], [place] [address] Jun, [facility] [address] [id number] [address] [place] [address], [place] [address] May, [facility] [address] [id number] [address] [place] [address], [place] [address] May, [facility] [address] [id number] [address] [place] [address], [place] [address] May, [facility] [address] [id number] [address] [place] [address], [place] [address] May, [facility] [address] [id number] [address] [place] [address] May, [facility] [address] [id number] [address] [place] [address], [place] [address] May, [facility] [address] [id number] [address] [place] [address] Apr, [facility] [address] [id number] [address] [place] [address], [place] [address] 24 Apr, 2013 [facility] [address] [id number] [address] [place] [address], [place] [address] 23 Apr, 2013 [facility] [address] [id number] [address] [place] [address], [place] [address] 20 Apr, 2013 [facility] [address] [id number] [address] [place] [address] 19 Apr, 2013 [facility] [address] [id number] [address] [place] [address], [place] [address] 17 Apr, 2012 [facility] [address] [id number] [address] [place] [address], [place] [id number] 13 Apr, 2013 [facility] [address] [id number] [address] [place] [address], [place] [id number] 11 Apr, 2013 [facility] [address] [id number] [address] [place] [address], [place] [id number] 09 Apr, 2013 [facility] [address] [id number] [address] [place] [address], [place] [id number] 05 Apr, 2013 [facility] [address] [id number] [address] [place] [address], [place] [id number] Mar, [facility] [address] [id number] [address] [place] [address], [place] [id number] Nov, [facility] [address] [id number] [address] [place] [address], [place] [id number] Oct, [facility] [address] [id number] [address] [place] [address], [place] [id number] Oct, [facility] [address] [id number] [address] [place] [address], [place] [id number] Sep, [facility] [address] [id number] [address] [place] [address], [place] [id number] May, [facility] [address] [id number] [address] [place] [address], [place] [id number] 27 May, 2012 [facility] [address] [id number] [address] [place] [address], [place] [id number] May, [facility] [address] [id number] [address] [place] [address], [place] [id number] May, [facility] [address] [id number] [address] [place] [address], [place] [id number] 24 Apr, 2012 [facility] [address] [id number] [address] [place] [id number] Apr, [facility] [address] [id number] [address] [place] [id number] Mar, [facility] [address] [id number] [address] [place] [id number] Feb, [facility] [address] [id number] [address] [place] [id number] Jul, [facility] [address] [id number] [address] [place] [id number] Jul, [facility] [address] [id number] [address] [place] [id number] Jul, [facility] [address] [id number] [address] [place] [id number] December, [facility] [address] [id number] [address] [place] [id number] December, [facility] [address] [id number] [address] [place] [id number] Oct, IMMUNIZATIONS No Known Immunizations SOCIAL HISTORY Never Assessed REASON FOR VISIT followup [facility], lesion on brain PLAN OF CARE Activity Details Follow Up 3 Months, prn Reason:CHM/ane gerson VITAL SIGNS Height 68 in 2018-01-03 Weight 264.4 lbs 2018-01-03 Temperature 98.3 degrees Fahrenheit 2018-01-03 Heart Rate 64 bpm 2018-01-03 Respiratory Rate 16 2018-01-03 BMI 40.20 kg/m2 2018-01-03 Blood pressure systolic 124 mmHg 2018-01-03 Blood pressure diastolic 82 mmHg 2018-01-03 MEDICATIONS Medication Instructions Dosage Frequency Start Date End Date Duration S tatus Abilify 10 mg Orally Once a day 1 tablet 24h Jun, 90 days Active Ibuprofen 400 MG Orally Three times a day 1 tablet with food or milk as needed 8h Not-Taking BusPIRone HCl 7.5 MG Orally 3 times a day 1 tablet 8h Aug, 14 days Not-Taking RESULTS No Results PROCEDURES Procedure Date Ordered Result Body Site EKG, TRACING (IN-HOUSE) 2018-01-03 N/A COMPLETE CBC W/AUTO DIFF WBC January 03, 2018 COMPREHEN METABOLIC PANEL January 03, 2018 ELECTROCARDIOGRAM, TRACING January 03, 2018 ASSAY OF MAGNESIUM January 03, 2018 RBC SED RATE, AUTOMATED January 03, 2018 C-REACTIVE PROTEIN January 03, 2018 ASSAY OF PROLACTIN January 03, 2018 ANTINUCLEAR ANTIBODIES January 03, 2018 INSTRUCTIONS MEDICATIONS ADMINISTERED No Known Medications MEDICAL (GENERAL) HISTORY Type Description Date Medical History anemia Medical History asthma Surgical History section x2 Surgical History hernia repair Hospitalization History surgeries Hospitalization History possible gallbladder problems Hospitalization History ER visit for UTI 09/12/15 Hospitalization History dizziness, blackout 12/28/2017
--- OUTSIDE RECORDS SUMMARY | 2019-10-07 05:33 | XMS REPORT ---
Author Author Jailene HAY [facility] Address [address] [place] [address] Care Team Providers Care Smoke Eater Name Role Phone CRISTIANA HAY Unavailable PROBLEMS Type Condition ICD9-CM Code RWK51-XI Code Onset Dates Condition S tatus SNOMED Code Problem Body mass index (BMI) of 40.0-44.9 in adult Z68.41 Active 780087402 Problem Elevated erythrocyte sedimentation rate R70.0 Active 765532448 Problem Morbid (severe) obesity due to excess calories E66 .01 Active 829360011 Problem Desire for Z31.9 Active 415225682 Problem Amenorrhea N91.2 Active 24205348 Problem Generalized anxiety disorder F41.1 A ctive 69336291 Problem Primary insomnia F51.01 Active 397 2004 Problem Iron deficiency anemia secondary to inadequate d ietary iron intake D50.8 Active 975481815 Problem Unspecified mood [affective] disorder F39 Active 36903430 ALLERGIES Substance Reaction Event Type Date Status Lamotrigine rash Drug Allergy Jan, Active Abigail Unknown Drug Allergy Jan, Active ENCOUNTERS Encounter Location Date Diagnosis [place] [id number] [facility] [id number] [address] [place] [address] Mar, Generalized anxiety disorder F41.1 ; Unspecified mood [affective] disorder F39 ; BMI 40.0-44.9, adult Z68.41 and Myalgia M79.1 [facility] [address] [place] [id number] [address] [place] [address] Feb, Elevated erythrocyte sedimen tation rate R70.0 [facility] [address] [facility] [id number] [address] [place] [address] Feb, Elevated erythrocyte sedimen tation rate R70.0 [facility] [address] [place] [id number] [address] [place] [address] Feb, Unprotected sexual intercour se Z72.51 ; Pain in left knee M25.562 and Pain in joints of right hand M25.541 [facility] [address] [place] [id number] [address] [place] [address] Feb, Pain in left knee M25.562 an d Pain in joints of right hand M25.541 [place] [address] [address] Feb, Unspecified mood [affective] disorder F39 ; Generalized anxiety disorder F41.1 ; Pain in joints of right hand M25.541 ; Pain in joints of left hand M25.542 ; Pain in right knee M25.561 ; Pain in left knee M25.562 and Morbid (severe) obesity due to excess calories E66.01 [facility] [address] [place] [id number] [address] [place] [address] Jan, Sore throat J02.9 ; Strep th roat J02.0 ; BMI 40.0-44.9, adult Z68.41 ; Dysuria R30.0 and Acute cystitis with hematuria N30.01 [place] [address] [place] [id number] [address] [place] [address] Jan, [place] [address] [place] [id number] [address] [place] [address] December, Abnormal MRI of head R93.0 [place] [address] [address] December, Subcutaneous nodules R22.9 ; Syncope, unspecified syncope type R55 ; Abnormal MRI of head R93.0 and Iron deficiency anemia secondary to inadequate dietary iron intake D50.8 [place] [address] [place] [id number] [address] [place] [address] December, [place] [address] [address] December, Iron deficiency anemia secon chuck to inadequate dietary iron intake D50.8 and BMI 40.0-44.9, adult Z68.41 [facility] [address] [address] Nov, Gastroenteritis K52.9 [facility] [address] [address] Nov, [place] [address] [address] Nov, Bilateral hand swelling M79. 89 ; Amenorrhea N91.2 ; Desire for Z31.9 ; Amenorrhea, unspecified N91.2 ; Bilateral swelling of feet M79.89 ; Rash R21 and Iron deficiency anemia, unspecified iron deficiency anemia type D50.9 [place] [address] [address] Nov, Bilateral hand swelling M79. 89 ; Bilateral swelling of feet M79.89 and Rash R21 [place] [address] [address] Sep, Desire for Z31.9 a nd Amenorrhea N91.2 [facility] [address] [place] [id number] [address] [place] [address] Aug, Scabies B86 [place] [address] [address] Aug, Amenorrhea, unspecified N91. 2 [place] [address] [address] Aug, Amenorrhea, unspecified N91. 2 [place] [address] [address] Aug, Amenorrhea N91.2 and Iron de ficiency anemia, unspecified iron deficiency anemia type D50.9 [place] [address] [place] [id number] [address] [place] [address] Aug, Iron deficiency anemia secon chuck to inadequate dietary iron intake D50.8 ; Amenorrhea N91.2 ; Generalized anxiety disorder F41.1 ; Unspecified mood [affective] disorder F39 and Nausea R11.0 [facility] [address] [facility] [id number] [address] [place] [address] Jul, Non-intractable vomiting wit h nausea, unspecified vomiting type R11.2 and Pleurisy R09.1 [facility] [address] [place] [id number] [address] [place] [address] Jul, [facility] [address] [place] [id number] [address] [place] [address] Jun, Unspecified mood [affective] disorder F39 [facility] [address] [place] [id number] [address] [place] [address] Jun, Unspecified mood [affective] disorder F39 and Generalized anxiety disorder F41.1 [facility] [address] [place] [id number] [address] [place] [address] May, Bilious vomiting with nausea R11.14 [facility] [address] [place] [id number] [address] [place] [address] May, Unspecified mood [affective] disorder F39 ; Generalized anxiety disorder F41.1 and Iron deficiency anemia, unspecified iron deficiency anemia type D50.9 [facility] [address] [place] [id number] [address] [place] [address] Apr, Unspecified mood [affective] disorder F39 [facility] [address] [place] [id number] [address] [place] [address] Apr, Iron deficiency anemia, unsp ecified iron deficiency anemia type D50.9 [facility] [address] [facility] [id number] [address] [place] [address] Apr, Iron deficiency anemia, unsp ecified iron deficiency anemia type D50.9 [facility] [address] [place] [id number] [address] [place] [address] Apr, Unspecified mood [affective] disorder F39 [facility] [address] [facility] [id number] [address] [place] [address] Apr, Abnormal CBC R79.89 [facility] [address] [facility] [id number] [address] [place] [address] 07 Apr, 2017 Abnormal CBC R79.89 [facility] [address] [facility] [id number] [address] [place] [address] 05 Apr, 2017 Encounter to establish care with new doctor Z76.89 ; Unspecified mood [affective] disorder F39 and Primary insomnia F51.01 [facility] [address] [facility] [id number] [address] [place] [address] Mar, Unspecified mood [affective] disorder F39 and Generalized anxiety disorder F41.1 [facility] [address] [facility] [id number] [address] [place] [address] Mar, Sore throat J02.9 and Strep pharyngitis J02.0 [facility] [id number] [place] [id number] Feb, Dental examination Z01.20 [facility] [address] [place] [id number] [place] [id number] Jan, Encounter for dental examina tion Z01.20 [facility] [address] [facility] [id number] [address] [place] [address] Nov, Fever, unspecified R50.9 and Acute nasopharyngitis J00 [facility] [address] [facility] [id number] [address] [place] [address] 18 Sep, 2015 Abdominal pain, acute, right upper quadrant 789.01 [facility] [address] [facility] [id number] [address] [place] [address] Sep, [facility] [address] [facility] [id number] [address] [place] [address] Aug, Irritable bowel syndrome wit h diarrhea K58.0 [facility] [address] [place] [id number] [address] [place] [address] Aug, Urinary tract infection, sit e not specified N39.0 and Back pain M54.9 [facility] [address] [place] [id number] [address] [place] [address] Mar, Abdominal pain, acute, right upper quadrant 789.01 [facility] [address] [address] Mar, [facility] [address] [address] Mar, Nausea 787.02 and Abdominal pain, acute, right upper quadrant 789.01 [facility] [address] [address] Mar, Nausea 787.02 and Abdominal pain 789.00 [facility] [address] [address] Mar, Nausea 787.02 [facility] [address] [place] [id number] [address] [place] [address] Jan, Amenorrhea 626.0 [place] [address] [address] Jan, Amenorrhea 626.0 and Obesity 278.00 [facility] [address] [place] [id number] [address] [place] [address] December, Amenorrhea 626.0 and Cough 7 86.2 [facility] [address] [place] [id number] [address] [place] [address] Nov, [facility] [address] [address] Nov, [facility] [address] [place] [id number] [address] [place] [address] May, [facility] [address] [address] May, [facility] [address] [id number] [address] [place] [address], [place] [address] Mar, [facility] [address] [id number] [address] [place] [address], [place] [address] Mar, [facility] [address] [id number] [address] [place] [address], [place] [address] Mar, [facility] [address] [id number] [address] [place] [address], [place] [address] Mar, [facility] [address] [id number] [address] [place] [address], [place] [address] Mar, [facility] [address] [id number] [address] [place] [address], [place] [address] Mar, [facility] [address] [id number] [address] [place] [address], [place] [address] Mar, [facility] [address] [id number] [address] [place] [address], [place] [address] Mar, [facility] [address] [id number] [address] [place] [address], [place] [address] Mar, [facility] [address] [id number] [address] [place] [address], [place] [address] Mar, [facility] [address] [id number] [address] [place] [address], [place] [address] Mar, [facility] [address] [id number] [address] [place] [address], [place] [address] Mar, [facility] [address] [id number] [address] [place] [address], [place] [address] Mar, [facility] [address] [id number] [address] [place] [address], [place] [address] Mar, [facility] [address] [id number] [address] [place] [address], [place] [address] Mar, [facility] [address] [id number] [address] [place] [address], [place] [address] Feb, 2013 [facility] [address] [id number] [facility] [place] [address] Feb, 2013 [facility] [address] [id number] [address] [place] [address], [place] [address] Feb, 2013 [facility] [address] [id number] [address] [place] [address], [place] [address] Feb, 2013 [facility] [address] [id number] [address] [place] [address], [place] [address] Feb, 2013 [facility] [address] [id number] [address] [place] [address], [place] [address] Feb, 2013 [facility] [address] [id number] [address] [place] [address], [place] [address] Feb, 2013 [facility] [address] [id number] [address] [place] [address], [place] [address] Feb, 2013 [facility] [address] [id number] [address] [place] [address], [place] [address] Feb, 2013 [facility] [address] [id number] [address] [place] [address], [place] [address] Feb, 2013 [facility] [address] [id number] [address] [place] [address], [place] [address] Feb, 2013 [facility] [address] [id number] [address] [place] [address], [place] [address] Feb, 2013 [facility] [address] [id number] [address] [place] [address], [place] [address] Feb, 2013 [facility] [address] [id number] [address] [place] [address], [place] [address] Feb, 2013 [facility] [address] [id number] [address] [place] [address], [place] [address] Feb, 2013 [facility] [address] [id number] [address] [place] [address], [place] [address] Jan, [facility] [address] [id number] [facility] [place] [address] Jan, [facility] [address] [id number] [facility] [place] [address] Jan, [facility] [address] [id number] [facility] [place] [address] Jan, [facility] [address] [id number] [facility] [place] [address] Jan, [facility] [address] [id number] [facility] [place] [address] Jan, [facility] [address] [id number] [facility] [place] [address] Jan, [facility] [address] [id number] [address] [place] [address], [place] [address] Jan, [facility] [address] [id number] [address] [place] [address], [place] [address] Jan, [facility] [address] [id number] [address] [place] [address], [place] [address] Jan, [facility] [address] [id number] [address] [place] [address], [place] [address] Jan, [facility] [address] [id number] [address] [place] [address], [place] [address] Jan, [facility] [address] [id number] [address] [place] [address], [place] [address] Jan, [facility] [address] [id number] [address] [place] [address], [place] [address] December, [facility] [address] [id number] [address] [place] [address], [place] [address] December, [facility] [address] [id number] [address] [place] [address], [place] [address] December, [facility] [address] [id number] [address] [place] [address], [place] [address] December, [facility] [address] [id number] [facility] [place] [address] December, [facility] [address] [id number] [facility] [place] [address] December, [facility] [address] [id number] [facility] [place] [address] December, [facility] [address] [id number] [address] [place] [address], [place] [address] December, [facility] [address] [id number] [facility] [place] [address] December, [facility] [address] [id number] [address] [place] [address], [place] [address] December, [facility] [address] [id number] [address] [place] [address], [place] [address] December, [facility] [address] [id number] [address] [place] [address], [place] [address] December, [facility] [address] [id number] [address] [place] [address], [place] [address] Nov, [facility] [address] [id number] [address] [place] [address], [place] [address] Nov, [facility] [address] [id number] [address] [place] [address], [place] [address] Oct, [facility] [address] [id number] [address] [place] [address], [place] [address] Oct, [facility] [address] [id number] [address] [place] [address], [place] [address] Oct, [facility] [address] [id number] [address] [place] [address], [place] [address] Oct, [facility] [address] [id number] [address] [place] [address], [place] [address] Oct, [facility] [address] [id number] [facility] [place] [address] 19 Oct, 2013 [facility] [address] [id number] [address] [place] [address], [place] [address] 19 Oct, 2013 [facility] [address] [id number] [facility] [place] [address] Oct, [facility] [address] [id number] [address] [place] [address], [place] [address] 18 Oct, 2013 [facility] [address] [id number] [address] [place] [address], [place] [address] 08 Oct, 2013 [facility] [address] [id number] [address] [place] [address], [place] [address] 07 Oct, 2013 [facility] [address] [id number] [address] [place] [address], [place] [address] 06 Oct, 2013 [facility] [address] [id number] [address] [place] [address], [place] [address] 06 Oct, 2013 [facility] [address] [id number] [address] [place] [address], [place] [address] 05 Oct, 2013 [facility] [address] [id number] [address] [place] [address], [place] [address] 05 Oct, 2013 [facility] [address] [id number] [address] [place] [address], [place] [address] Oct, [facility] [address] [id number] [address] [place] [address], [place] [address] Oct, [facility] [address] [id number] [address] [place] [address], [place] [address] Sep, [facility] [address] [id number] [address] [place] [address], [place] [address] Sep, [facility] [address] [id number] [address] [place] [address], [place] [address] Sep, [facility] [address] [id number] [address] [place] [address], [place] [address] Jun, [facility] [address] [id number] [address] [place] [address], [place] [address] Jun, [facility] [address] [id number] [address] [place] [address], [place] [address] Jun, [facility] [address] [id number] [address] [place] [address], [place] [address] Jun, [facility] [address] [id number] [address] [place] [address], [place] [address] Jun, [facility] [address] [id number] [address] [place] [address], [place] [address] Jun, [facility] [address] [id number] [address] [place] [address], [place] [address] May, [facility] [address] [id number] [address] [place] [address], [place] [address] May, [facility] [address] [id number] [address] [place] [address] May, [facility] [address] [id number] [address] [place] [address], [place] [address] May, [facility] [address] [id number] [address] [place] [id number] May, [facility] [address] [id number] [address] [place] [id number] May, [facility] [address] [id number] [address] [place] [phone] 26 Apr, 2013 [facility] [address] [id number] [address] [place] [address], [place] [address] 24 Apr, 2013 [facility] [address] [id number] [address] [place] [phone] 23 Apr, 2013 [facility] [address] [id number] [address] [place] [id number] 20 Apr, 2013 [facility] [address] [id number] [address] [place] [phone] 19 Apr, 2013 [facility] [address] [id number] [address] [place] [address], [place] [address] 17 Sep, 2012 [facility] [address] [id number] [address] [place] [address], [place] [address] 13 Apr, 2013 [facility] [address] [id number] [address] [place] [address], [place] [address] 11 Apr, 2013 [facility] [address] [id number] [address] [place] [address], [place] [address] 09 Apr, 2013 [facility] [address] [id number] [address] [place] [address], [place] [address] 05 Apr, 2013 [facility] [address] [id number] [address] [place] [address], [place] [address] Mar, [facility] [address] [id number] [address] [place] [address], [place] [address] Nov, [facility] [address] [id number] [address] [place] [address], [place] [address] Oct, [facility] [address] [id number] [address] [place] [address], [place] [address] Oct, [facility] [address] [id number] [address] [place] [address], [place] [address] Sep, [facility] [address] [id number] [address] [place] [address], [place] [address] May, [facility] [address] [id number] [address] [place] [address], [place] [address] May, [facility] [address] [id number] [address] [place] [address], [place] [address] May, [facility] [address] [id number] [address] [place] [address], [place] [address] 11 May, 2012 [facility] [address] [id number] [address] [place] [address], [place] [address] 24 Apr, 2012 [facility] [address] [id number] [address] [place] [id number] Apr, [facility] [address] [id number] [address] [place] [phone] Mar, [facility] [address] [id number] [address] [place] [phone] Feb, [facility] [address] [id number] [address] [place] [id number] Jul, [facility] [address] [id number] [address] [place] [id number] Jul, [facility] [address] [id number] [address] [place] [phone] Jul, [facility] [address] [id number] [address] [place] [phone] December, [facility] [address] [id number] [address] [place] [id number] December, [facility] [address] [id number] [address] [place] [id number] Oct, IMMUNIZATIONS No Known Immunizations SOCIAL HISTORY Never Assessed REASON FOR VISIT sore throat started this morning Derrick, Low back pain PLAN OF CARE Activity Details Follow Up 1 Week, prn Reason:if sympto ms worsen or not improving VITAL SIGNS Height 68 in 2018-02-06 Weight 273.0 lbs 2018-02-06 Temperature 98.2 degrees Fahrenheit 2018-02-06 Heart Rate 80 bpm 2018-02-06 Respiratory Rate 2018-02-06 BMI 41.50 kg/m2 2018-02-06 Blood pressure systolic 120 mmHg 2018-02-06 Blood pressure diastolic 80 mmHg 2018-02-06 MEDICATIONS Medication Instructions Dosage Frequency Start Date End Date Duration S edson BusPIRone HCl 7.5 MG Orally 3 times a day 1 tablet 8h Aug, 14 days Active Keflex 500 mg Orally every 6 hrs 1 capsule 6h Jan, 30 J 2017 10 day(s) Active Abilify 10 mg Orally Once a day 1 tablet 24h Jun, 90 days Not-Taking Ibuprofen 400 MG Orally Three times a day 1 tablet with food or milk as needed 8h Active RESULTS No Results PROCEDURES Procedure Date Ordered Result Body Site STREP A ASSAY W/OPTIC February 06, 2018 URINE CULTURE/COLONY COUNT February 06, 2018 URINALYSIS, AUTO, W/O SCOPE February 06, 2018 INSTRUCTIONS MEDICATIONS ADMINISTERED No Known Medications MEDICAL (GENERAL) HISTORY Type Description Date Medical History anemia Medical History asthma Surgical History section x2 Surgical History hernia repair Hospitalization History surgeries Hospitalization History possible gallbladder problems Hospitalization History ER visit for UTI 09/12/15 Hospitalization History dizziness, blackout 12/28/2017
--- OUTSIDE RECORDS SUMMARY | 2019-10-07 05:34 | XMS REPORT ---
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 Name Role Phone CRISTIANA HAY Unavailable PROBLEMS Type Condition ICD9-CM Code [id number] Code Onset Dates Condition S tatus SNOMED Code Problem Body mass index (BMI) of 40.0-44.9 in adult Z68.41 Active 326410532 Problem Elevated erythrocyte sedimentation rate R70.0 Active 249267845 Problem Morbid (severe) obesity due to excess calories E66 .01 Active 176243366 Problem Desire for Z31.9 Active 806249814 Problem Amenorrhea N91.2 Active 22299967 Problem Generalized anxiety disorder F41.1 A ctive 22866256 Problem Primary insomnia F51.01 Active 397 2004 Problem Iron deficiency anemia secondary to inadequate d ietary iron intake D50.8 Active 845717575 Problem Unspecified mood [affective] disorder F39 Active [id number] ALLERGIES No Information ENCOUNTERS Encounter Location Date Diagnosis [facility] [address] [facility] [id number] [address] [place] [address] Mar, [facility] [address] [facility] [id number] [address] [place] [address] Feb, Elevated erythrocyte sedimen tation rate R70.0 [facility] [address] [facility] [id number] [address] [place] [address] Feb, Elevated erythrocyte sedimen tation rate R70.0 [facility] [address] [facility] [id number] [address] [place] [address] Feb, Unprotected sexual intercour se Z72.51 ; Pain in left knee M25.562 and Pain in joints of right hand M25.541 [facility] [address] [address] 10 Feb, 2018 Pain in left knee M25.562 an d Pain in joints of right hand M25.541 [place] [address] [address] 09 Feb, 2018 Unspecified mood [affective] disorder F39 ; Generalized anxiety disorder F41.1 ; Pain in joints of right hand M25.541 ; Pain in joints of left hand M25.542 ; Pain in right knee M25.561 ; Pain in left knee M25.562 and Morbid (severe) obesity due to excess calories E66.01 [facility] [place] [address] [address] Jan, Sore throat J02.9 ; Strep th roat J02.0 ; BMI 40.0-44.9, adult Z68.41 ; Dysuria R30.0 and Acute cystitis with hematuria N30.01 [place] [address] [address] Jan, [place] [address] [address] December, Abnormal MRI of head R93.0 [place] [address] [address] December, Subcutaneous nodules R22.9 ; Syncope, unspecified syncope type R55 ; Abnormal MRI of head R93.0 and Iron deficiency anemia secondary to inadequate dietary iron intake D50.8 [place] [address] [address] December, [place] [address] [address] December, Iron deficiency anemia secon chuck to inadequate dietary iron intake D50.8 and BMI 40.0-44.9, adult Z68.41 [facility] [address] [address] 23 Apr, 2018 Gastroenteritis K52.9 [place] [address] [address] [place] [id number] [address] [place] [address] Nov, [place] [address] [address] Nov, Bilateral hand swelling M79. 89 ; Amenorrhea N91.2 ; Desire for Z31.9 ; Amenorrhea, unspecified N91.2 ; Bilateral swelling of feet M79.89 ; Rash R21 and Iron deficiency anemia, unspecified iron deficiency anemia type D50.9 [place] [address] [address] Nov, Bilateral hand swelling M79. 89 ; Bilateral swelling of feet M79.89 and Rash R21 [place] [address] [address] Sep, Desire for Z31.9 a nd Amenorrhea N91.2 [facility] [place] [address] [address] Aug, Scabies B86 [place] [address] [address] Aug, Amenorrhea, unspecified N91. 2 [place] [address] [address] Aug, Amenorrhea, unspecified N91. 2 [place] [address] [address] Aug, Amenorrhea N91.2 and Iron de ficiency anemia, unspecified iron deficiency anemia type D50.9 [place] [address] [address] [place] [id number] [address] [place] [address] Aug, Iron deficiency anemia secon chuck to inadequate dietary iron intake D50.8 ; Amenorrhea N91.2 ; Generalized anxiety disorder F41.1 ; Unspecified mood [affective] disorder F39 and Nausea R11.0 [facility] [address] [address] Jul, Non-intractable vomiting wit h nausea, unspecified vomiting type R11.2 and Pleurisy R09.1 [facility] [address] [facility] [id number] [address] [place] [address] Jul, [facility] [address] [facility] [id number] [address] [place] [address] Jun, Unspecified mood [affective] disorder F39 [facility] [address] [facility] [id number] [address] [place] [address] Jun, Unspecified mood [affective] disorder F39 and Generalized anxiety disorder F41.1 [facility] [address] [facility] [id number] [address] [place] [address] May, Bilious vomiting with nausea R11.14 [facility] [address] [facility] [id number] [address] [place] [address] May, Unspecified mood [affective] disorder F39 ; Generalized anxiety disorder F41.1 and Iron deficiency anemia, unspecified iron deficiency anemia type D50.9 [facility] [address] [facility] [id number] [address] [place] [address] Apr, Unspecified mood [affective] disorder F39 [facility] [address] [facility] [id number] [address] [place] [address] Apr, Iron deficiency anemia, unsp ecified iron deficiency anemia type D50.9 [facility] [address] [facility] [id number] [address] [place] [address] Apr, Iron deficiency anemia, unsp ecified iron deficiency anemia type D50.9 [facility] [address] [facility] [id number] [address] [place] [address] Apr, Unspecified mood [affective] disorder F39 [facility] [address] [facility] [id number] [address] [place] [address] Apr, Abnormal CBC R79.89 [facility] [address] [facility] [id number] [address] [place] [address] 07 Apr, 2017 Abnormal CBC R79.89 [facility] [address] [id number] [address] [place] [address] 05 Apr, 2017 Encounter to establish care with new doctor Z76.89 ; Unspecified mood [affective] disorder F39 and Primary insomnia F51.01 [facility] [address] [facility] [id number] [address] [place] [address] Mar, Unspecified mood [affective] disorder F39 and Generalized anxiety disorder F41.1 [facility] [address] [id number] [address] [place] [address] Mar, Sore throat J02.9 and Strep pharyngitis J02.0 [facility] [address] [id number] [address] [place] [id number] Feb, Dental examination Z01.20 [facility] [address] [id number] [address] [place] [id number] Jan, Encounter for dental examina tion Z01.20 [facility] [address] [facility] [id number] [address] [place] [address] Nov, Fever, unspecified R50.9 and Acute nasopharyngitis J00 [facility] [address] [facility] [id number] [address] [place] [address] 18 Sep, 2015 Abdominal pain, acute, right upper quadrant 789.01 [facility] [address] [facility] [id number] [address] [place] [address] Sep, [facility] [address] [facility] [id number] [address] [place] [address] Aug, Irritable bowel syndrome wit h diarrhea K58.0 [facility] [address] [facility] [id number] [address] [place] [address] Aug, Urinary tract infection, sit e not specified N39.0 and Back pain M54.9 [facility] [address] [facility] [id number] [address] [place] [address] Mar, Abdominal pain, acute, right upper quadrant 789.01 [facility] [address] [id number] [address] [place] [address] Mar, [facility] [address] [id number] [address] [place] [address] Mar, Nausea 787.02 and Abdominal pain, acute, right upper quadrant 789.01 [facility] [address] [facility] [id number] [address] [place] [address] Mar, Nausea 787.02 and Abdominal pain 789.00 [facility] [address] [facility] [id number] [address] [place] [address] Mar, Nausea 787.02 [facility] [address] [facility] [id number] [address] [place] [address] Jan, Amenorrhea 626.0 [facility] [address] [facility] [id number] [address] [place] [address] Jan, Amenorrhea 626.0 and Obesity 278.00 [facility] [address] [facility] [id number] [address] [place] [address] December, Amenorrhea 626.0 and Cough 7 86.2 [facility] [address] [facility] [id number] [address] [place] [address] Nov, [facility] [address] [facility] [id number] [address] [place] [address] Nov, [facility] [address] [facility] [id number] [address] [place] [address] May, [facility] [address] [facility] [id number] [address] [place] [address] May, [facility] [address] [facility] [id number] [address] [place] [address] Mar, [facility] [address] [facility] [id number] [address] [place] [address] Mar, [facility] [address] [id number] [address] [place] [address], [place] [address] Mar, [facility] [address] [id number] [address] [place] [address], [place] [address] Mar, [facility] [address] [id number] [address] [place] [address], [place] [address] Mar, [facility] [address] [id number] [address] [place] [address], [place] [address] Mar, [facility] [address] [id number] [address] [place] [address], [place] [address] Mar, [facility] [address] [id number] [address] [place] [address], [place] [address] Mar, [facility] [address] [id number] [address] [place] [address], [place] [address] Mar, [facility] [address] [id number] [address] [place] [address], [place] [address] Mar, [facility] [address] [id number] [address] [place] [address], [place] [address] Mar, [facility] [address] [id number] [address] [place] [address], [place] [address] Mar, [facility] [address] [id number] [address] [place] [address], [place] [address] Mar, [facility] [address] [id number] [address] [place] [address], [place] [address] Mar, [facility] [address] [id number] [address] [place] [address], [place] [address] Mar, [facility] [address] [id number] [address] [place] [address], [place] [address] Feb, [facility] [address] [id number] [address] [place] [address], [place] [address] Feb, [facility] [address] [id number] [address] [place] [address], [place] [address] Feb, 2013 [facility] [address] [id number] [address] [place] [address], [place] [address] Feb, 2013 [facility] [address] [id number] [address] [place] [address], [place] [address] Feb, 2013 [facility] [address] [id number] [address] [place] [address], [place] [address] Feb, 2013 [facility] [address] [id number] [address] [place] [address], [place] [address] Feb, 2013 [facility] [address] [id number] [address] [place] [address], [place] [address] Feb, [facility] [address] [id number] [address] [place] [address], [place] [address] Feb, 2013 [facility] [address] [id number] [address] [place] [address], [place] [address] Feb, [facility] [address] [id number] [address] [place] [address], [place] [address] Feb, [facility] [address] [id number] [address] [place] [address], [place] [address] Feb, 2013 [facility] [address] [id number] [address] [place] [address], [place] [address] Feb, [facility] [address] [id number] [address] [place] [address], [place] [address] Feb, [facility] [address] [id number] [address] [place] [address], [place] [address] Feb, [facility] [address] [id number] [address] [place] [address], [place] [address] Jan, [facility] [address] [id number] [address] [place] [address], [place] [address] Jan, [facility] [address] [id number] [address] [place] [address], [place] [address] Jan, [facility] [address] [id number] [facility] [place] [address] Jan, [facility] [address] [id number] [facility] [place] [address] Jan, [facility] [address] [id number] [facility] [place] [address] Jan, [facility] [address] [id number] [facility] [place] [address] Jan, [facility] [address] [id number] [facility] [place] [address] Jan, [facility] [address] [id number] [facility] [place] [address] Jan, [facility] [address] [id number] [address] [place] [address], [place] [address] Jan, [facility] [address] [id number] [address] [place] [address], [place] [address] Jan, [facility] [address] [id number] [address] [place] [address], [place] [address] Jan, [facility] [address] [id number] [address] [place] [address], [place] [address] Jan, [facility] [address] [id number] [address] [place] [address], [place] [address] December, [facility] [address] [id number] [address] [place] [address], [place] [address] December, [facility] [address] [id number] [address] [place] [address], [place] [address] December, [facility] [address] [id number] [address] [place] [address], [place] [address] December, [facility] [address] [id number] [address] [place] [address], [place] [address] December, [facility] [address] [id number] [address] [place] [address], [place] [address] December, [facility] [address] [id number] [facility] [place] [address] December, [facility] [address] [id number] [address] [place] [address], [place] [address] December, [facility] [address] [id number] [address] [place] [address], [place] [address] December, [facility] [address] [id number] [address] [place] [address], [place] [address] December, [facility] [address] [id number] [address] [place] [address], [place] [address] December, [facility] [address] [id number] [address] [place] [address], [place] [address] December, [facility] [address] [id number] [address] [place] [address], [place] [address] Nov, [facility] [address] [id number] [address] [place] [address], [place] [address] Nov, [facility] [address] [id number] [address] [place] [address], [place] [address] Oct, [facility] [address] [id number] [address] [place] [address], [place] [address] Oct, [facility] [address] [id number] [address] [place] [address], [place] [address] Oct, [facility] [address] [id number] [address] [place] [address], [place] [address] Oct, [facility] [address] [id number] [address] [place] [address], [place] [address] Oct, [facility] [address] [id number] [address] [place] [address], [place] [address] Oct, [facility] [address] [id number] [address] [place] [address], [place] [address] Oct, [facility] [address] [id number] [address] [place] [address], [place] [address] Oct, [facility] [address] [id number] [address] [place] [address], [place] [address] 18 Oct, 2013 [facility] [address] [id number] [address] [place] [address], [place] [address] 08 Oct, 2013 [facility] [address] [id number] [address] [place] [address], [place] [address] 07 Oct, 2013 [facility] [address] [id number] [address] [place] [address], [place] [address] 06 Oct, 2013 [facility] [address] [id number] [address] [place] [address], [place] [address] 06 Oct, 2013 [facility] [address] [id number] [address] [place] [address], [place] [address] Oct, [facility] [address] [id number] [address] [place] [address], [place] [address] Oct, [facility] [address] [id number] [address] [place] [address], [place] [address] Oct, [facility] [address] [id number] [address] [place] [address], [place] [address] 05 Oct, 2013 [facility] [address] [id number] [address] [place] [address], [place] [address] Sep, [facility] [address] [id number] [address] [place] [address], [place] [address] Sep, [facility] [address] [id number] [address] [place] [address], [place] [address] Sep, [facility] [address] [id number] [address] [place] [address], [place] [address] Jun, [facility] [address] [id number] [address] [place] [address], [place] [address] Jun, [facility] [address] [id number] [address] [place] [address], [place] [address] Jun, [facility] [address] [id number] [address] [place] [address], [place] [address] Jun, [facility] [address] [id number] [address] [place] [address], [place] [address] Jun, [facility] [address] [id number] [address] [place] [address], [place] [address] Jun, [facility] [address] [id number] [address] [place] [address], [place] [address] May, [facility] [address] [id number] [address] [place] [address], [place] [address] May, [facility] [address] [id number] [address] [place] [address], [place] [address] May, [facility] [address] [id number] [address] [place] [address], [place] [address] May, [facility] [address] [id number] [address] [place] [address], [place] [address] May, [facility] [address] [id number] [address] [place] [address], [place] [address] May, [facility] [address] [id number] [address] [place] [address], [place] [address] 26 Apr, 2013 [facility] [address] [id number] [address] [place] [address], [place] [address] 24 Apr, 2013 [facility] [address] [id number] [address] [place] [address], [place] [address] 23 Apr, 2013 [facility] [address] [id number] [address] [place] [address], [place] [address] 20 Apr, 2013 [facility] [address] [id number] [address] [place] [address], [place] [address] 19 Apr, 2013 [facility] [address] [id number] [address] [place] [address], [place] [address] 17 Apr, 2013 [facility] [address] [id number] [address] [place] [address], [place] [address] 13 Apr, 2013 [facility] [address] [id number] [address] [place] [address], [place] [address] 11 Apr, 2013 [facility] [address] [id number] [address] [place] [address], [place] [address] 09 Apr, 2013 [facility] [address] [id number] [address] [place] [address], [place] [address] 05 Apr, 2013 [facility] [address] [id number] [address] [place] [address], [place] [address] Mar, [facility] [address] [id number] [address] [place] [address], [place] [address] Nov, [facility] [address] [id number] [address] [place] [address], [place] [address] Oct, [facility] [address] [id number] [address] [place] [address], [place] [address] Oct, [facility] [address] [id number] [address] [place] [address], [place] [address] Sep, [facility] [address] [id number] [address] [place] [address], [place] [address] May, [facility] [address] [id number] [address] [place] [address], [place] [address] May, [facility] [address] [id number] [address] [place] [address], [place] [address] May, [facility] [address] [id number] [address] [place] [address], [place] [address] May, [facility] [address] [id number] [address] [place] [address], [place] [address] 24 Apr, 2012 [facility] [address] [id number] [address] [place] [address], [place] [address] 06 Apr, 2012 [facility] [address] [id number] [address] [place] [address], [place] [address] Mar, [facility] [address] [id number] [address] [place] [id number] Feb, [facility] [address] [id number] [address] [place] [id number] Jul, [facility] [address] [id number] [address] [place] [id number] Jul, [facility] [address] [id number] [address] [place] [id number] Jul, [facility] [address] [id number] [address] [place] [id number] December, [facility] [address] [facility] [id number] [address] [place] [id number] December, [facility] [address] [facility] [id number] [address] [place] [id number] Oct, IMMUNIZATIONS No Known Immunizations SOCIAL HISTORY Never Assessed REASON FOR VISIT Lab (walk-in) PLAN OF CARE VITAL SIGNS MEDICATIONS Unknown Medications RESULTS No Results PROCEDURES Procedure Date Ordered Result Body Site COMPREHEN METABOLIC PANEL November 22, 2017 IRON BINDING TEST November 22, 2017 COMPLETE CBC W/AUTO DIFF WBC November 22, 2017 ASSAY OF FERRITIN November 22, 2017 ASSAY OF IRON November 22, 2017 LIPID PANEL November 22, 2017 Hemoglobin Test Send Out 0 dollar November 22, 2017 INSTRUCTIONS MEDICATIONS ADMINISTERED No Known Medications MEDICAL (GENERAL) HISTORY Type Description Date Medical History anemia Medical History asthma Surgical History section x2 Surgical History hernia repair Hospitalization History surgeries Hospitalization History possible gallbladder problems Hospitalization History ER visit for UTI 09/12/15 Hospitalization History dizziness, blackout 12/28/2017
--- OUTSIDE RECORDS SUMMARY | 2019-10-07 05:34 | XMS REPORT ---
Author Author Jailene HAY [facility] Address [address] [place] [address] Care Team Providers [facility] [employer] [facility] Manager Name Role Phone CRISTIANA HAY Unavailable PROBLEMS Type Condition ICD9-CM Code MRB23-MA Code Onset Dates Condition S tatus SNOMED Code Problem Body mass index (BMI) of 40.0-44.9 in adult Z68.41 Active 848443673 Problem Elevated erythrocyte sedimentation rate R70.0 Active 523879177 Problem Morbid (severe) obesity due to excess calories E66 .01 Active 230167635 Problem Desire for Z31.9 Active 358052617 Problem Amenorrhea N91.2 Active 05230356 Problem Generalized anxiety disorder F41.1 A ctive 88065865 Problem Primary insomnia F51.01 Active 397 2004 Problem Iron deficiency anemia secondary to inadequate d ietary iron intake D50.8 Active 420471938 Problem Unspecified mood [affective] disorder F39 Active 15784990 ALLERGIES Substance Reaction Event Type Date Status Lamotrigine rash Drug Allergy Nov, Active Abigail Unknown Drug Allergy Nov, Active ENCOUNTERS Encounter Location Date Diagnosis [facility], [place] [address] [facility] [id number] [address] [place] [address] Mar, [facility] [place] [address] [facility] [id number] [address] [place] [id number] Feb, Elevated erythrocyte sedimen tation rate R70.0 [facility] [place] [address] [facility] [facility] [id number] [address] [place] [address] Feb, Elevated erythrocyte sedimen tation rate R70.0 [facility], [place] [address] [facility] [facility] [id number] [address] [place] [address] Feb, Unprotected sexual intercour se Z72.51 ; Pain in left knee M25.562 and Pain in joints of right hand M25.541 [place] [address] [facility] [id number] [address] [place] [address] 10 Feb, 2018 Pain in left knee M25.562 an d Pain in joints of right hand M25.541 [place] [address] [place] [id number] [address] [place] [address] Feb, Unspecified mood [affective] disorder F39 ; Generalized anxiety disorder F41.1 ; Pain in joints of right hand M25.541 ; Pain in joints of left hand M25.542 ; Pain in right knee M25.561 ; Pain in left knee M25.562 and Morbid (severe) obesity due to excess calories E66.01 [facility] [place] [address] [place] [id number] [address] [place] [address] Jan, Sore throat J02.9 ; Strep th roat J02.0 ; BMI 40.0-44.9, adult Z68.41 ; Dysuria R30.0 and Acute cystitis with hematuria N30.01 [place] [address] [place] [id number] [address] [place] [address] Jan, [place] [address] [place] [id number] [address] [place] [address] December, Abnormal MRI of head R93.0 [place] [address] [place] [id number] [address] [place] [address] December, Subcutaneous nodules R22.9 ; Syncope, unspecified syncope type R55 ; Abnormal MRI of head R93.0 and Iron deficiency anemia secondary to inadequate dietary iron intake D50.8 [place] [address] [facility] [id number] [address] [place] [address] December, [place] [address] [place] [id number] [address] [place] [address] December, Iron deficiency anemia secon chuck to inadequate dietary iron intake D50.8 and BMI 40.0-44.9, adult Z68.41 [facility] [address] [place] [id number] [address] [place] [address] Nov, Gastroenteritis K52.9 [facility], [place] [address] [address] Nov, [facility] [place] [address] [address] Nov, Bilateral hand swelling M79. 89 ; Amenorrhea N91.2 ; Desire for Z31.9 ; Amenorrhea, unspecified N91.2 ; Bilateral swelling of feet M79.89 ; Rash R21 and Iron deficiency anemia, unspecified iron deficiency anemia type D50.9 [place] [address] [address] Nov, Bilateral hand swelling M79. 89 ; Bilateral swelling of feet M79.89 and Rash R21 [place] [address] [address] Sep, Desire for Z31.9 a nd Amenorrhea N91.2 [facility] [address] [address] Aug, Scabies B86 [place] [address] [address] Aug, Amenorrhea, unspecified N91. 2 [place] [address] [address] Aug, Amenorrhea, unspecified N91. 2 [place] [address] [address] Aug, Amenorrhea N91.2 and Iron de ficiency anemia, unspecified iron deficiency anemia type D50.9 [place] [address] [place] [address] Aug, Iron deficiency anemia secon chuck to inadequate dietary iron intake D50.8 ; Amenorrhea N91.2 ; Generalized anxiety disorder F41.1 ; Unspecified mood [affective] disorder F39 and Nausea R11.0 [facility] [address] [facility] [id number] [address] [place] [address] Jul, Non-intractable vomiting wit h nausea, unspecified vomiting type R11.2 and Pleurisy R09.1 [facility], [place] [address] [facility] [id number] [address] [place] [address] Jul, [facility], [place] [address] [facility] [facility] [id number] [address] [place] [address] Jun, Unspecified mood [affective] disorder F39 [facility], [place] [address] [facility] [id number] [address] [place] [address] Jun, Unspecified mood [affective] disorder F39 and Generalized anxiety disorder F41.1 [facility], [place] [address] [facility] [facility] [id number] [address] [place] [address] May, Bilious vomiting with nausea R11.14 [facility], [place] [address] [facility] [id number] [address] [place] [address] May, Unspecified mood [affective] disorder F39 ; Generalized anxiety disorder F41.1 and Iron deficiency anemia, unspecified iron deficiency anemia type D50.9 [facility], [place] [address] [place] [id number] [address] [place] [address] Apr, Unspecified mood [affective] disorder F39 [facility], [place] [address] [facility] [id number] [address] [place] [address] Apr, Iron deficiency anemia, unsp ecified iron deficiency anemia type D50.9 [facility], [place] [address] [facility] [facility] [id number] [address] [place] [address] Apr, Iron deficiency anemia, unsp ecified iron deficiency anemia type D50.9 [facility] [place] [address] [facility] [facility] [id number] [address] [place] [address] Apr, Unspecified mood [affective] disorder F39 [facility] [place] [address] [facility] [facility] [id number] [address] [place] [address] Apr, Abnormal CBC R79.89 [facility], [place] [address] [facility] [facility] [id number] [address] [place] [address] Apr, Abnormal CBC R79.89 [facility] [place] [address] [facility] [facility] [id number] [address] [place] [address] Apr, Encounter to establish care with new doctor Z76.89 ; Unspecified mood [affective] disorder F39 and Primary insomnia F51.01 [facility], [place] [address] [facility] [facility] [id number] [address] [place] [address] Mar, Unspecified mood [affective] disorder F39 and Generalized anxiety disorder F41.1 [facility] [address] [id number] [address] [place] [address] Mar, Sore throat J02.9 and Strep pharyngitis J02.0 [facility] [address] [place] [id number] Feb, Dental examination Z01.20 [facility] [address] [place] [id number] Jan, Encounter for dental examina tion Z01.20 [facility], [place] [address] [place] [id number] [address] [place] [address] Nov, Fever, unspecified R50.9 and Acute nasopharyngitis J00 [facility], [place] [address] [facility] [facility] [id number] [address] [place] [address] 18 Sep, 2015 Abdominal pain, acute, right upper quadrant 789.01 [facility], [place] [address] [facility] [facility] [id number] [address] [place] [address] Sep, [facility], [place] [address] [id number] [address] [place] [address] Aug, Irritable bowel syndrome wit h diarrhea K58.0 [facility], [place] [address] [facility] [facility] [id number] [address] [place] [address] Aug, Urinary tract infection, sit e not specified N39.0 and Back pain M54.9 [facility], [place] [address] [facility] [facility] [id number] [address] [place] [address] Mar, Abdominal pain, acute, right upper quadrant 789.01 [facility], [place] [address] [place] [id number] [address] [place] [address] Mar, [facility], [place] [address] [place] [id number] [place] [address] Mar, Nausea 787.02 and Abdominal pain, acute, right upper quadrant 789.01 [facility], [place] [address] [place] [id number] [place] [address] Mar, Nausea 787.02 and Abdominal pain 789.00 [facility], [place] [address] [place] [id number] [place] [address] Mar, Nausea 787.02 [facility], [place] [address] [address] Jan, Amenorrhea 626.0 [facility], [place] [address] [address] Jan, Amenorrhea 626.0 and Obesity 278.00 [facility], [place] [address] [address] December, Amenorrhea 626.0 and Cough 7 86.2 [facility], [place] [address] [address] Nov, [facility], [place] [address] [place] [id number] [place] [address] Nov, [facility], [place] [address] [address] May, [facility], [place] [address] [place] [id number] [place] [address] May, [facility], [place] [address] [address] Mar, [facility] [address] [id number] [facility] [place] [address] Mar, [facility] [address] [id number] [facility] [place] [address] Mar, [facility] [address] [id number] [facility] [place] [address] Mar, [facility] [address] [id number] [facility] [place] [address] Mar, [facility] [address] [id number] [facility] [place] [address] Mar, [facility] [address] [id number] [address] [place] [address], [place] [address] Mar, [facility] [address] [id number] [address] [place] [address], [place] [address] Mar, [facility] [address] [id number] [address] [place] [address], [place] [address] Mar, [facility] [address] [id number] [address] [place] [address], [place] [address] Mar, [facility] [address] [id number] [address] [place] [address], [place] [address] Mar, [facility] [address] [id number] [address] [place] [address], [place] [address] Mar, [facility] [address] [id number] [address] [place] [address], [place] [address] Mar, [facility] [address] [id number] [address] [place] [address], [place] [address] Mar, [facility] [address] [id number] [address] [place] [address], [place] [address] Mar, [facility] [address] [id number] [address] [place] [address], [place] [address] Feb, [facility] [address] [id number] [address] [place] [address], [place] [address] Feb, 2013 [facility] [address] [id number] [facility] [place] [address] Feb, 2013 [facility] [address] [id number] [address] [place] [address], [place] [address] Feb, [facility] [address] [id number] [address] [place] [address], [place] [address] Feb, [facility] [address] [id number] [address] [place] [address], [place] [address] Feb, [facility] [address] [id number] [address] [place] [address], [place] [address] Feb, [facility] [address] [id number] [address] [place] [address], [place] [address] Feb, [facility] [address] [id number] [address] [place] [address], [place] [address] Feb, [facility] [address] [id number] [address] [place] [address], [place] [address] Feb, [facility] [address] [id number] [address] [place] [address], [place] [address] Feb, [facility] [address] [id number] [address] [place] [address], [place] [address] Feb, [facility] [address] [id number] [address] [place] [address], [place] [address] Feb, [facility] [address] [id number] [address] [place] [address], [place] [address] Feb, [facility] [address] [id number] [address] [place] [address], [place] [address] Feb, [facility] [address] [id number] [address] [place] [address], [place] [address] Jan, [facility] [address] [id number] [address] [place] [address], [place] [address] Jan, [facility] [address] [id number] [facility] [place] [address] Jan, [facility] [address] [id number] [address] [place] [address], [place] [address] Jan, [facility] [address] [id number] [address] [place] [address], [place] [address] Jan, [facility] [address] [id number] [address] [place] [address], [place] [address] Jan, [facility] [address] [id number] [address] [place] [address], [place] [address] Jan, [facility] [address] [id number] [address] [place] [address], [place] [address] Jan, [facility] [address] [id number] [address] [place] [address], [place] [address] Jan, [facility] [address] [id number] [address] [place] [address], [place] [address] Jan, [facility] [address] [id number] [address] [place] [address], [place] [address] Jan, [facility] [address] [id number] [address] [place] [address], [place] [address] Jan, [facility] [address] [id number] [address] [place] [address], [place] [address] Jan, [facility] [address] [id number] [address] [place] [address], [place] [address] December, [facility] [address] [id number] [address] [place] [address], [place] [address] December, [facility] [address] [id number] [address] [place] [address], [place] [address] December, [facility] [address] [id number] [address] [place] [address], [place] [address] December, [facility] [address] [id number] [address] [place] [address], [place] [address] December, [facility] [address] [id number] [address] [place] [address], [place] [address] December, [facility] [address] [id number] [address] [place] [address], [place] [address] December, [facility] [address] [id number] [address] [place] [address], [place] [address] December, [facility] [address] [id number] [address] [place] [address], [place] [address] December, [facility] [address] [id number] [address] [place] [address], [place] [address] December, [facility] [address] [id number] [address] [place] [address], [place] [address] December, [facility] [address] [id number] [address] [place] [address], [place] [address] December, [facility] [address] [id number] [address] [place] [address], [place] [address] Nov, [facility] [address] [id number] [address] [place] [address], [place] [address] Nov, [facility] [address] [id number] [address] [place] [address], [place] [address] Oct, [facility] [address] [id number] [address] [place] [address], [place] [address] Oct, [facility] [address] [id number] [address] [place] [address], [place] [address] Oct, [facility] [address] [id number] [address] [place] [address], [place] [address] Oct, [facility] [address] [id number] [address] [place] [address], [place] [address] Oct, [facility] [address] [id number] [address] [place] [address], [place] [address] Oct, [facility] [address] [id number] [address] [place] [address], [place] [address] Oct, [facility] [address] [id number] [facility] [place] [address] Oct, [facility] [address] [id number] [address] [place] [address], [place] [address] 18 Oct, 2013 [facility] [address] [id number] [address] [place] [address], [place] [address] 08 Oct, 2013 [facility] [address] [id number] [address] [place] [address], [place] [address] 07 Oct, 2013 [facility] [address] [id number] [address] [place] [address], [place] [address] Oct, [facility] [address] [id number] [address] [place] [address], [place] [address] Oct, [facility] [address] [id number] [address] [place] [address], [place] [address] Oct, [facility] [address] [id number] [address] [place] [address], [place] [address] Oct, [facility] [address] [id number] [address] [place] [address], [place] [address] Oct, [facility] [address] [id number] [address] [place] [address], [place] [address] Oct, [facility] [address] [id number] [address] [place] [address], [place] [address] Sep, [facility] [address] [id number] [address] [place] [address], [place] [address] Sep, [facility] [address] [id number] [address] [place] [address], [place] [address] Sep, [facility] [address] [id number] [address] [place] [address], [place] [address] Jun, [facility] [address] [id number] [address] [place] [address], [place] [address] Jun, [facility] [address] [id number] [address] [place] [address], [place] [address] Jun, [facility] [address] [id number] [address] [place] [address], [place] [address] Jun, [facility] [address] [id number] [address] [place] [address], [place] [address] Jun, [facility] [address] [id number] [address] [place] [address], [place] [address] Jun, [facility] [address] [id number] [address] [place] [address], [place] [address] May, [facility] [address] [id number] [address] [place] [address], [place] [address] May, [facility] [address] [id number] [address] [place] [address], [place] [address] May, [facility] [address] [id number] [address] [place] [address], [place] [address] May, [facility] [address] [id number] [address] [place] [address], [place] [address] 15 May, 2013 [facility] [address] [id number] [address] [place] [address], [place] [address] May, [facility] [address] [id number] [address] [place] [address], [place] [address] 26 Apr, 2013 [facility] [address] [id number] [address] [place] [address], [place] [address] 24 Sep2012 [facility] [address] [id number] [address] [place] [address], [place] [address] 23 Sep, 2012 [facility] [address] [id number] [address] [place] [address], [place] [address] 20 Sep, 2012 [facility] [address] [id number] [address] [place] [address], [place] [address] 19 Sep, 2012 [facility] [address] [id number] [address] [place] [address], [place] [address] 17 Apr, 2013 [facility] [address] [id number] [address] [place] [address], [place] [address] 13 Apr, 2012 [facility] [address] [id number] [address] [place] [address], [place] [address] 11 Apr, 2013 [facility] [address] [id number] [address] [place] [address], [place] [address] 09 Apr, 2013 [facility] [address] [id number] [address] [place] [address], [place] [address] 05 Apr, 2013 [facility] [address] [id number] [address] [place] [address], [place] [address] Mar, [facility] [address] [id number] [address] [place] [address], [place] [address] Nov, [facility] [address] [id number] [address] [place] [address], [place] [address] Oct, [facility] [address] [id number] [address] [place] [address], [place] [address] Oct, [facility] [address] [id number] [address] [place] [address], [place] [address] Sep, [facility] [address] [id number] [address] [place] [address], [place] [address] May, [facility] [address] [id number] [address] [place] [address], [place] [address] 27 May, 2012 [facility] [address] [id number] [address] [place] [address], [place] [address] May, [facility] [address] [id number] [address] [place] [address], [place] [address] 11 May, 2012 [facility] [address] [id number] [address] [place] [address], [place] [address] 24 Apr, 2012 [facility] [address] [id number] [address] [place] [address], [place] [address] 06 Apr, 2012 [facility] [address] [id number] [address] [place] [phone] Mar, [facility], [place] [address] [id number] [address] [place] [phone] Feb, [facility], [place] [address] [id number] [address] [place] [phone] Jul, [facility], [place] [address] [id number] [address] [place] [phone] Jul, [facility], [place] [address] [id number] [address] [place] [phone] Jul, [facility], [place] [address] [id number] [address] [place] [phone] December, [facility], [place] [address] [id number] [address] [place] [phone] December, [facility], [place] [address] [facility] [id number] [address] [place] [phone] Oct, IMMUNIZATIONS No Known Immunizations SOCIAL HISTORY Never Assessed REASON FOR VISIT Swelling (hands)/feet x 1 month -- vanessa pedersen PLAN OF CARE Activity Details Follow Up 4 Weeks, prn Reason:rash/bum ps VITAL SIGNS Height 68 in 2017-11-21 Weight 261.0 lbs 2017-11-21 Temperature 99.0 degrees Fahrenheit 2017-11-21 BMI 39.68 kg/m2 2017-11-21 Blood pressure systolic 124 mmHg 2017-11-21 Blood pressure diastolic 80 mmHg 2017-11-21 MEDICATIONS Medication Instructions Dosage Frequency Start Date End Date Duration S tatus Ferrous Sulfate 325 (65 Fe) MG Orally twice a day 1 tablet 12h 21 Apr, 2017 30 days Active Abilify 10 mg Orally Once a day 1 tablet 24h 14 Jun, 2017 90 days Active BusPIRone HCl 7.5 MG Orally 3 times a day 1 tablet 8h Aug, 14 days Active RESULTS No Results PROCEDURES No Known procedures INSTRUCTIONS MEDICATIONS ADMINISTERED No Known Medications MEDICAL (GENERAL) HISTORY Type Description Date Medical History anemia Medical History asthma Surgical History section x2 Surgical History hernia repair Hospitalization History surgeries Hospitalization History possible gallbladder problems Hospitalization History ER visit for UTI 09/12/15 Hospitalization History dizziness, blackout 12/28/2017
--- OUTSIDE RECORDS SUMMARY | 2019-10-07 05:34 | XMS REPORT ---
Author Author Jailene HAY [facility] Address [address] [place] [address] Care Team Providers Care Supervisor [employer] Name Role Phone CRISTIANA HAY Unavailable PROBLEMS Type Condition ICD9-CM Code [id number] Code Onset Dates Condition S tatus SNOMED Code Problem Body mass index (BMI) of 40.0-44.9 in adult Z68.41 Active 538028218 Problem Elevated erythrocyte sedimentation rate R70.0 Active 467037836 Problem Morbid (severe) obesity due to excess calories E66 .01 Active 800787306 Problem Desire for Z31.9 Active 663670482 Problem Amenorrhea N91.2 Active 12726835 Problem Generalized anxiety disorder F41.1 A ctive 65793545 Problem Primary insomnia F51.01 Active 397 2004 Problem Iron deficiency anemia secondary to inadequate d ietary iron intake D50.8 Active 027712479 Problem Unspecified mood [affective] disorder F39 Active [id number] ALLERGIES No Information ENCOUNTERS Encounter Location Date Diagnosis [facility] [address] [facility] [id number] [address] [place] [address] Mar, [facility] [address] [facility] [id number] [address] [place] [address] Feb, Elevated erythrocyte sedimen tation rate R70.0 [facility] [address] [facility] [id number] [address] [place] [address] Feb, Elevated erythrocyte sedimen tation rate R70.0 [facility] [address] [facility] [id number] [address] [place] [address] Feb, Unprotected sexual intercour se Z72.51 ; Pain in left knee M25.562 and Pain in joints of right hand M25.541 [facility] [address] [address] 10 Feb, 2018 Pain in left knee M25.562 an d Pain in joints of right hand M25.541 [place] [address] [address] 09 Feb, 2018 Unspecified mood [affective] disorder F39 ; Generalized anxiety disorder F41.1 ; Pain in joints of right hand M25.541 ; Pain in joints of left hand M25.542 ; Pain in right knee M25.561 ; Pain in left knee M25.562 and Morbid (severe) obesity due to excess calories E66.01 [facility] [place] [address] [address] Jan, Sore throat J02.9 ; Strep th roat J02.0 ; BMI 40.0-44.9, adult Z68.41 ; Dysuria R30.0 and Acute cystitis with hematuria N30.01 [place] [address] [address] Jan, [place] [address] [address] December, Abnormal MRI of head R93.0 [place] [address] [address] December, Subcutaneous nodules R22.9 ; Syncope, unspecified syncope type R55 ; Abnormal MRI of head R93.0 and Iron deficiency anemia secondary to inadequate dietary iron intake D50.8 [place] [address] [address] December, [place] [address] [address] December, Iron deficiency anemia secon chuck to inadequate dietary iron intake D50.8 and BMI 40.0-44.9, adult Z68.41 [facility] [address] [address] 23 Apr, 2018 Gastroenteritis K52.9 [place] [address] [address] [place] [id number] [address] [place] [address] Nov, [place] [address] [address] Nov, Bilateral hand swelling M79. 89 ; Amenorrhea N91.2 ; Desire for Z31.9 ; Amenorrhea, unspecified N91.2 ; Bilateral swelling of feet M79.89 ; Rash R21 and Iron deficiency anemia, unspecified iron deficiency anemia type D50.9 [place] [address] [address] Nov, Bilateral hand swelling M79. 89 ; Bilateral swelling of feet M79.89 and Rash R21 [place] [address] [address] Sep, Desire for Z31.9 a nd Amenorrhea N91.2 [facility] [place] [address] [address] Aug, Scabies B86 [place] [address] [address] Aug, Amenorrhea, unspecified N91. 2 [place] [address] [address] Aug, Amenorrhea, unspecified N91. 2 [place] [address] [address] Aug, Amenorrhea N91.2 and Iron de ficiency anemia, unspecified iron deficiency anemia type D50.9 [place] [address] [address] [place] [id number] [address] [place] [address] Aug, Iron deficiency anemia secon chuck to inadequate dietary iron intake D50.8 ; Amenorrhea N91.2 ; Generalized anxiety disorder F41.1 ; Unspecified mood [affective] disorder F39 and Nausea R11.0 [facility] [address] [address] Jul, Non-intractable vomiting wit h nausea, unspecified vomiting type R11.2 and Pleurisy R09.1 [facility] [address] [facility] [id number] [address] [place] [address] Jul, [facility] [address] [facility] [id number] [address] [place] [address] Jun, Unspecified mood [affective] disorder F39 [facility] [address] [facility] [id number] [address] [place] [address] Jun, Unspecified mood [affective] disorder F39 and Generalized anxiety disorder F41.1 [facility] [address] [facility] [id number] [address] [place] [address] May, Bilious vomiting with nausea R11.14 [facility] [address] [facility] [id number] [address] [place] [address] May, Unspecified mood [affective] disorder F39 ; Generalized anxiety disorder F41.1 and Iron deficiency anemia, unspecified iron deficiency anemia type D50.9 [facility] [address] [facility] [id number] [address] [place] [address] Apr, Unspecified mood [affective] disorder F39 [facility] [address] [facility] [id number] [address] [place] [address] Apr, Iron deficiency anemia, unsp ecified iron deficiency anemia type D50.9 [facility] [address] [facility] [id number] [address] [place] [address] Apr, Iron deficiency anemia, unsp ecified iron deficiency anemia type D50.9 [facility] [address] [facility] [id number] [address] [place] [address] Apr, Unspecified mood [affective] disorder F39 [facility] [address] [facility] [id number] [address] [place] [address] Apr, Abnormal CBC R79.89 [facility] [address] [facility] [id number] [address] [place] [address] 07 Apr, 2017 Abnormal CBC R79.89 [facility] [address] [id number] [address] [place] [address] 05 Apr, 2017 Encounter to establish care with new doctor Z76.89 ; Unspecified mood [affective] disorder F39 and Primary insomnia F51.01 [facility] [address] [facility] [id number] [address] [place] [address] Mar, Unspecified mood [affective] disorder F39 and Generalized anxiety disorder F41.1 [facility] [address] [id number] [address] [place] [address] Mar, Sore throat J02.9 and Strep pharyngitis J02.0 [facility] [address] [id number] [address] [place] [id number] Feb, Dental examination Z01.20 [facility] [address] [id number] [address] [place] [id number] Jan, Encounter for dental examina tion Z01.20 [facility] [address] [facility] [id number] [address] [place] [address] Nov, Fever, unspecified R50.9 and Acute nasopharyngitis J00 [facility] [address] [facility] [id number] [address] [place] [address] 18 Sep, 2015 Abdominal pain, acute, right upper quadrant 789.01 [facility] [address] [facility] [id number] [address] [place] [address] Sep, [facility] [address] [facility] [id number] [address] [place] [address] Aug, Irritable bowel syndrome wit h diarrhea K58.0 [facility] [address] [facility] [id number] [address] [place] [address] Aug, Urinary tract infection, sit e not specified N39.0 and Back pain M54.9 [facility] [address] [facility] [id number] [address] [place] [address] Mar, Abdominal pain, acute, right upper quadrant 789.01 [facility] [address] [id number] [address] [place] [address] Mar, [facility] [address] [id number] [address] [place] [address] Mar, Nausea 787.02 and Abdominal pain, acute, right upper quadrant 789.01 [facility] [address] [facility] [id number] [address] [place] [address] Mar, Nausea 787.02 and Abdominal pain 789.00 [facility] [address] [facility] [id number] [address] [place] [address] Mar, Nausea 787.02 [facility] [address] [facility] [id number] [address] [place] [address] Jan, Amenorrhea 626.0 [facility] [address] [facility] [id number] [address] [place] [address] Jan, Amenorrhea 626.0 and Obesity 278.00 [facility] [address] [facility] [id number] [address] [place] [address] December, Amenorrhea 626.0 and Cough 7 86.2 [facility] [address] [facility] [id number] [address] [place] [address] Nov, [facility] [address] [facility] [id number] [address] [place] [address] Nov, [facility] [address] [facility] [id number] [address] [place] [address] May, [facility] [address] [facility] [id number] [address] [place] [address] May, [facility] [address] [facility] [id number] [address] [place] [address] Mar, [facility] [address] [facility] [id number] [address] [place] [address] Mar, [facility] [address] [id number] [address] [place] [address], [place] [address] Mar, [facility] [address] [id number] [address] [place] [address], [place] [address] Mar, [facility] [address] [id number] [address] [place] [address], [place] [address] Mar, [facility] [address] [id number] [address] [place] [address], [place] [address] Mar, [facility] [address] [id number] [address] [place] [address], [place] [address] Mar, [facility] [address] [id number] [address] [place] [address], [place] [address] Mar, [facility] [address] [id number] [address] [place] [address], [place] [address] Mar, [facility] [address] [id number] [address] [place] [address], [place] [address] Mar, [facility] [address] [id number] [address] [place] [address], [place] [address] Mar, [facility] [address] [id number] [address] [place] [address], [place] [address] Mar, [facility] [address] [id number] [address] [place] [address], [place] [address] Mar, [facility] [address] [id number] [address] [place] [address], [place] [address] Mar, [facility] [address] [id number] [address] [place] [address], [place] [address] Mar, [facility] [address] [id number] [address] [place] [address], [place] [address] Feb, [facility] [address] [id number] [address] [place] [address], [place] [address] Feb, [facility] [address] [id number] [address] [place] [address], [place] [address] Feb, 2013 [facility] [address] [id number] [address] [place] [address], [place] [address] Feb, 2013 [facility] [address] [id number] [address] [place] [address], [place] [address] Feb, 2013 [facility] [address] [id number] [address] [place] [address], [place] [address] Feb, 2013 [facility] [address] [id number] [address] [place] [address], [place] [address] Feb, 2013 [facility] [address] [id number] [address] [place] [address], [place] [address] Feb, [facility] [address] [id number] [address] [place] [address], [place] [address] Feb, 2013 [facility] [address] [id number] [address] [place] [address], [place] [address] Feb, [facility] [address] [id number] [address] [place] [address], [place] [address] Feb, [facility] [address] [id number] [address] [place] [address], [place] [address] Feb, 2013 [facility] [address] [id number] [address] [place] [address], [place] [address] Feb, [facility] [address] [id number] [address] [place] [address], [place] [address] Feb, [facility] [address] [id number] [address] [place] [address], [place] [address] Feb, [facility] [address] [id number] [address] [place] [address], [place] [address] Jan, [facility] [address] [id number] [address] [place] [address], [place] [address] Jan, [facility] [address] [id number] [address] [place] [address], [place] [address] Jan, [facility] [address] [id number] [address] [place] [address] Jan, [facility] [address] [id number] [address] [place] [address] Jan, [facility] [address] [id number] [address] [place] [address] Jan, [facility] [address] [id number] [address] [place] [address] Jan, [facility] [address] [id number] [address] [place] [address] Jan, [facility] [address] [id number] [address] [place] [address] Jan, [facility] [address] [id number] [address] [place] [address], [place] [address] Jan, [facility] [address] [id number] [address] [place] [address], [place] [address] Jan, [facility] [address] [id number] [address] [place] [address], [place] [address] Jan, [facility] [address] [id number] [address] [place] [address], [place] [address] Jan, [facility] [address] [id number] [address] [place] [address], [place] [address] December, [facility] [address] [id number] [address] [place] [address], [place] [address] December, [facility] [address] [id number] [address] [place] [address], [place] [address] December, [facility] [address] [id number] [address] [place] [address], [place] [address] December, [facility] [address] [id number] [address] [place] [address], [place] [address] December, [facility] [address] [id number] [address] [place] [address], [place] [address] December, [facility] [address] [id number] [address] [place] [address] December, [facility] [address] [id number] [address] [place] [address], [place] [address] December, [facility] [address] [id number] [address] [place] [address], [place] [address] December, [facility] [address] [id number] [address] [place] [address], [place] [address] December, [facility] [address] [id number] [address] [place] [address], [place] [address] December, [facility] [address] [id number] [address] [place] [address], [place] [address] December, [facility] [address] [id number] [address] [place] [address], [place] [address] Nov, [facility] [address] [id number] [address] [place] [address], [place] [address] Nov, [facility] [address] [id number] [address] [place] [address], [place] [address] Oct, [facility] [address] [id number] [address] [place] [address], [place] [address] Oct, [facility] [address] [id number] [address] [place] [address], [place] [address] Oct, [facility] [address] [id number] [address] [place] [address], [place] [address] Oct, [facility] [address] [id number] [address] [place] [address], [place] [address] Oct, [facility] [address] [id number] [address] [place] [address], [place] [address] Oct, [facility] [address] [id number] [address] [place] [address], [place] [address] Oct, [facility] [address] [id number] [address] [place] [address], [place] [address] Oct, [facility] [address] [id number] [address] [place] [address], [place] [address] 18 Oct, 2013 [facility] [address] [id number] [address] [place] [address], [place] [address] 08 Oct, 2013 [facility] [address] [id number] [address] [place] [address], [place] [address] 07 Oct, 2013 [facility] [address] [id number] [address] [place] [address], [place] [address] 06 Oct, 2013 [facility] [address] [id number] [address] [place] [address], [place] [address] 06 Oct, 2013 [facility] [address] [id number] [address] [place] [address], [place] [address] Oct, [facility] [address] [id number] [address] [place] [address], [place] [address] Oct, [facility] [address] [id number] [address] [place] [address], [place] [address] Oct, [facility] [address] [id number] [address] [place] [address], [place] [address] 05 Oct, 2013 [facility] [address] [id number] [address] [place] [address], [place] [address] Sep, [facility] [address] [id number] [address] [place] [address], [place] [address] Sep, [facility] [address] [id number] [address] [place] [address], [place] [address] Sep, [facility] [address] [id number] [address] [place] [address], [place] [address] Jun, [facility] [address] [id number] [address] [place] [address], [place] [address] Jun, [facility] [address] [id number] [address] [place] [address], [place] [address] Jun, [facility] [address] [id number] [address] [place] [address], [place] [address] Jun, [facility] [address] [id number] [address] [place] [address], [place] [address] Jun, [facility] [address] [id number] [address] [place] [address], [place] [address] Jun, [facility] [address] [id number] [address] [place] [address], [place] [address] May, [facility] [address] [id number] [address] [place] [address], [place] [address] May, [facility] [address] [id number] [address] [place] [address], [place] [address] May, [facility] [address] [id number] [address] [place] [address], [place] [address] May, [facility] [address] [id number] [address] [place] [address], [place] [address] May, [facility] [address] [id number] [address] [place] [address], [place] [address] May, [facility] [address] [id number] [address] [place] [address], [place] [address] 26 Apr, 2013 [facility] [address] [id number] [address] [place] [address], [place] [address] 24 Apr, 2013 [facility] [address] [id number] [address] [place] [address], [place] [address] 23 Apr, 2013 [facility] [address] [id number] [address] [place] [address], [place] [address] 20 Apr, 2013 [facility] [address] [id number] [address] [place] [address], [place] [address] 19 Apr, 2013 [facility] [address] [id number] [address] [place] [address], [place] [address] 17 Apr, 2013 [facility] [address] [id number] [address] [place] [address], [place] [address] 13 Apr, 2013 [facility] [address] [id number] [address] [place] [address], [place] [address] 11 Apr, 2013 [facility] [address] [id number] [address] [place] [address], [place] [address] 09 Apr, 2013 [facility] [address] [id number] [address] [place] [address], [place] [address] 05 Apr, 2013 [facility] [address] [id number] [address] [place] [address], [place] [address] Mar, [facility] [address] [id number] [address] [place] [address], [place] [address] Nov, [facility] [address] [id number] [address] [place] [address], [place] [address] Oct, [facility] [address] [id number] [address] [place] [address], [place] [address] Oct, [facility] [address] [id number] [address] [place] [address], [place] [address] Sep, [facility] [address] [id number] [address] [place] [address], [place] [address] May, [facility] [address] [id number] [address] [place] [address], [place] [address] May, [facility] [address] [id number] [address] [place] [address], [place] [address] May, [facility] [address] [id number] [address] [place] [address], [place] [address] May, [facility] [address] [id number] [address] [place] [address], [place] [address] 24 Apr, 2012 [facility] [address] [id number] [address] [place] [address], [place] [address] 06 Apr, 2012 [facility] [address] [id number] [address] [place] [address], [place] [address] Mar, [facility] [address] [id number] [address] [place] [id number] Feb, [facility] [address] [id number] [address] [place] [id number] Jul, [facility] [address] [id number] [address] [place] [id number] Jul, [facility] [address] [facility] [id number] [address] [place] [id number] Jul, [facility] [address] [facility] [id number] [address] [place] [id number] December, [facility] [address] [facility] [id number] [address] [place] [id number] December, [facility] [address] [facility] [id number] [address] [place] [id number] Oct, IMMUNIZATIONS No Known Immunizations SOCIAL HISTORY Never Assessed REASON FOR VISIT Hives PLAN OF CARE VITAL SIGNS MEDICATIONS Unknown [...]
--- OUTSIDE RECORDS SUMMARY | 2019-10-07 05:34 | XMS REPORT ---
Author Author Jailene LUND [facility] IN CARE Address [address] [place] [address] Care Team Providers Care Analytical Data Scientist Name Role Phone DOUGLAS LUND Unavailable PROBLEMS Type Condition ICD9-CM Code [id number] Code Onset Dates Condition S tatus SNOMED Code Problem Body mass index (BMI) of 40.0-44.9 in adult Z68.41 Active 636369615 Problem Elevated erythrocyte sedimentation rate R70.0 Active 209885148 Problem Morbid (severe) obesity due to excess calories E66 .01 Active 561699260 Problem Desire for Z31.9 Active 960745724 Problem Amenorrhea N91.2 Active 16485447 Problem Generalized anxiety disorder F41.1 A ctive 17584740 Problem Primary insomnia F51.01 Active 397 2004 Problem Iron deficiency anemia secondary to inadequate d ietary iron intake D50.8 Active 470023676 Problem Unspecified mood [affective] disorder F39 Active 45345339 ALLERGIES Substance Reaction Event Type Date Status Lamotrigine rash Drug Allergy Nov, Active Abigail Unknown Drug Allergy Nov, Active ENCOUNTERS Encounter Location Date Diagnosis [place] [id number] [facility] [id number] [address] [place] [address] Feb, Elevated erythrocyte sedimen tation rate R70.0 [facility] [address] [facility] [id number] [address] [place] [address] Feb, Elevated erythrocyte sedimen tation rate R70.0 [facility] [address] [facility] [id number] [address] [place] [address] Feb, Unprotected sexual intercour se Z72.51 ; Pain in left knee M25.562 and Pain in joints of right hand M25.541 [facility] [address] [address] 10 Feb, 2018 Pain in left knee M25.562 an d Pain in joints of right hand M25.541 [place] [address] [address] 09 Feb, 2018 Unspecified mood [affective] disorder F39 ; Generalized anxiety disorder F41.1 ; Pain in joints of right hand M25.541 ; Pain in joints of left hand M25.542 ; Pain in right knee M25.561 ; Pain in left knee M25.562 and Morbid (severe) obesity due to excess calories E66.01 [facility] [place] [address] [address] Jan, Sore throat J02.9 ; Strep th roat J02.0 ; BMI 40.0-44.9, adult Z68.41 ; Dysuria R30.0 and Acute cystitis with hematuria N30.01 [place] [address] [address] Jan, [place] [address] [address] December, Abnormal MRI of head R93.0 [place] [address] [address] December, Subcutaneous nodules R22.9 ; Syncope, unspecified syncope type R55 ; Abnormal MRI of head R93.0 and Iron deficiency anemia secondary to inadequate dietary iron intake D50.8 [place] [address] [address] [place] [id number] [place] [address] December, [place] [address] [address] December, Iron deficiency anemia secon chuck to inadequate dietary iron intake D50.8 and BMI 40.0-44.9, adult Z68.41 [facility] [address] [address] 23 Apr, 2018 Gastroenteritis K52.9 [place] [address] [address] [place] [id number] [place] [address] Nov, [place] [address] [address] Nov, Bilateral hand swelling M79. 89 ; Amenorrhea N91.2 ; Desire for Z31.9 ; Amenorrhea, unspecified N91.2 ; Bilateral swelling of feet M79.89 ; Rash R21 and Iron deficiency anemia, unspecified iron deficiency anemia type D50.9 [place] [address] [address] Nov, Bilateral hand swelling M79. 89 ; Bilateral swelling of feet M79.89 and Rash R21 [place] [address] [address] Sep, Desire for Z31.9 a nd Amenorrhea N91.2 [facility] [place] [address] [address] Aug, Scabies B86 [place] [address] [address] Aug, Amenorrhea, unspecified N91. 2 [place] [address] [address] Aug, Amenorrhea, unspecified N91. 2 [place] [address] [address] Aug, Amenorrhea N91.2 and Iron de ficiency anemia, unspecified iron deficiency anemia type D50.9 [place] [address] [address] [place] [id number] [place] [address] Aug, Iron deficiency anemia secon chuck to inadequate dietary iron intake D50.8 ; Amenorrhea N91.2 ; Generalized anxiety disorder F41.1 ; Unspecified mood [affective] disorder F39 and Nausea R11.0 [facility] [address] [address] Jul, Non-intractable vomiting wit h nausea, unspecified vomiting type R11.2 and Pleurisy R09.1 [facility] [address] [facility] [id number] [address] [place] [address] Jul, [facility] [address] [facility] [id number] [address] [place] [address] Jun, Unspecified mood [affective] disorder F39 [facility] [address] [facility] [id number] [address] [place] [address] Jun, Unspecified mood [affective] disorder F39 and Generalized anxiety disorder F41.1 [facility] [address] [facility] [id number] [address] [place] [address] May, Bilious vomiting with nausea R11.14 [facility] [address] [facility] [id number] [address] [place] [address] May, Unspecified mood [affective] disorder F39 ; Generalized anxiety disorder F41.1 and Iron deficiency anemia, unspecified iron deficiency anemia type D50.9 [facility] [address] [facility] [id number] [address] [place] [address] Apr, Unspecified mood [affective] disorder F39 [facility] [address] [facility] [id number] [address] [place] [address] Apr, Iron deficiency anemia, unsp ecified iron deficiency anemia type D50.9 [facility] [address] [facility] [id number] [address] [place] [address] Apr, Iron deficiency anemia, unsp ecified iron deficiency anemia type D50.9 [facility] [address] [facility] [id number] [address] [place] [address] Apr, Unspecified mood [affective] disorder F39 [facility] [address] [facility] [id number] [address] [place] [address] Apr, Abnormal CBC R79.89 [facility] [address] [facility] [id number] [address] [place] [address] 07 Apr, 2017 Abnormal CBC R79.89 [facility] [address] [facility] [id number] [address] [place] [address] 05 Apr, 2017 Encounter to establish care with new doctor Z76.89 ; Unspecified mood [affective] disorder F39 and Primary insomnia F51.01 [facility] [address] [facility] [id number] [address] [place] [address] 2017 Unspecified mood [affective] disorder F39 and Generalized anxiety disorder F41.1 [facility] [address] [facility] [id number] [address] [place] [address] Mar, Sore throat J02.9 and Strep pharyngitis J02.0 [facility] [address] [place] [id number] [address] [place] [id number] Feb, Dental examination Z01.20 [facility] [id number] [place] [id number] Jan, Encounter for dental examina tion Z01.20 [facility] [address] [facility] [id number] [address] [place] [address] Nov, Fever, unspecified R50.9 and Acute nasopharyngitis J00 [facility] [address] [facility] [id number] [address] [place] [address] 18 Sep, 2015 Abdominal pain, acute, right upper quadrant 789.01 [facility] [address] [facility] [id number] [address] [place] [address] Sep, [facility] [address] [facility] [id number] [address] [place] [address] Aug, Irritable bowel syndrome wit h diarrhea K58.0 [facility] [address] [facility] [id number] [address] [place] [address] Aug, Urinary tract infection, sit e not specified N39.0 and Back pain M54.9 [facility] [address] [facility] [id number] [address] [place] [address] Mar, Abdominal pain, acute, right upper quadrant 789.01 [facility] [address] [facility] [id number] [address] [place] [address] Mar, [facility] [address] [facility] [id number] [address] [place] [address] Mar, Nausea 787.02 and Abdominal pain, acute, right upper quadrant 789.01 [facility] [address] [facility] [id number] [address] [place] [address] Mar, Nausea 787.02 and Abdominal pain 789.00 [facility] [address] [facility] [id number] [address] [place] [address] Mar, Nausea 787.02 [facility] [address] [facility] [id number] [address] [place] [address] Jan, Amenorrhea 626.0 [facility] [address] [facility] [id number] [address] [place] [address] Jan, Amenorrhea 626.0 and Obesity 278.00 [facility] [address] [facility] [id number] [address] [place] [address] December, Amenorrhea 626.0 and Cough 7 86.2 [facility] [address] [facility] [id number] [address] [place] [address] Nov, [facility] [address] [facility] [id number] [address] [place] [address] Nov, [facility] [address] [facility] [id number] [address] [place] [address] May, [facility] [address] [facility] [id number] [address] [place] [address] May, [facility] [address] [facility] [id number] [address] [place] [address] Mar, [facility] [address] [facility] [id number] [address] [place] [address] Mar, [facility] [address] [id number] [address] [place] [address], [place] [address] Mar, [facility] [address] [id number] [address] [place] [address], [place] [address] Mar, [facility] [address] [id number] [address] [place] [address], [place] [address] Mar, [facility] [address] [id number] [address] [place] [address], [place] [address] Mar, [facility] [address] [id number] [address] [place] [address], [place] [address] Mar, [facility] [address] [id number] [address] [place] [address], [place] [address] Mar, [facility] [address] [id number] [address] [place] [address], [place] [address] Mar, [facility] [address] [id number] [address] [place] [address], [place] [address] Mar, [facility] [address] [id number] [address] [place] [address], [place] [address] Mar, [facility] [address] [id number] [address] [place] [address], [place] [address] Mar, [facility] [address] [id number] [address] [place] [address], [place] [address] Mar, [facility] [address] [id number] [address] [place] [address], [place] [address] Mar, [facility] [address] [id number] [address] [place] [address], [place] [address] Mar, [facility] [address] [id number] [address] [place] [address], [place] [address] Feb, [facility] [address] [id number] [address] [place] [address], [place] [address] Feb, [facility] [address] [id number] [address] [place] [address], [place] [address] Feb, 2013 [facility] [address] [id number] [address] [place] [address], [place] [address] Feb, 2013 [facility] [address] [id number] [address] [place] [address], [place] [address] Feb, 2013 [facility] [address] [id number] [address] [place] [address], [place] [address] Feb, 2013 [facility] [address] [id number] [address] [place] [address], [place] [address] Feb, 2013 [facility] [address] [id number] [address] [place] [address], [place] [address] Feb, [facility] [address] [id number] [address] [place] [address], [place] [address] Feb, 2013 [facility] [address] [id number] [address] [place] [address], [place] [address] Feb, 2013 [facility] [address] [id number] [address] [place] [address], [place] [address] Feb, [facility] [address] [id number] [address] [place] [address], [place] [address] Feb, 2013 [facility] [address] [id number] [address] [place] [address], [place] [address] Feb, [facility] [address] [id number] [address] [place] [address], [place] [address] Feb, [facility] [address] [id number] [address] [place] [address], [place] [address] Feb, [facility] [address] [id number] [address] [place] [address], [place] [address] Jan, [facility] [address] [id number] [address] [place] [address], [place] [address] Jan, [facility] [address] [id number] [address] [place] [address], [place] [address] Jan, [facility] [address] [id number] [facility] [place] [address] Jan, [facility] [address] [id number] [facility] [place] [address] Jan, [facility] [address] [id number] [facility] [place] [address] Jan, [facility] [address] [id number] [facility] [place] [address] Jan, [facility] [address] [id number] [facility] [place] [address] Jan, [facility] [address] [id number] [facility] [place] [address] Jan, [facility] [address] [id number] [facility] [place] [address] Jan, [facility] [address] [id number] [address] [place] [address], [place] [address] Jan, [facility] [address] [id number] [address] [place] [address], [place] [address] Jan, [facility] [address] [id number] [address] [place] [address], [place] [address] Jan, [facility] [address] [id number] [address] [place] [address], [place] [address] December, [facility] [address] [id number] [address] [place] [address], [place] [address] December, [facility] [address] [id number] [address] [place] [address], [place] [address] December, [facility] [address] [id number] [address] [place] [address], [place] [address] December, [facility] [address] [id number] [facility] [place] [address] December, [facility] [address] [id number] [address] [place] [address], [place] [address] December, [facility] [address] [id number] [facility] [place] [address] December, [facility] [address] [id number] [address] [place] [address], [place] [address] December, [facility] [address] [id number] [address] [place] [address], [place] [address] December, [facility] [address] [id number] [address] [place] [address], [place] [address] December, [facility] [address] [id number] [address] [place] [address], [place] [address] December, [facility] [address] [id number] [address] [place] [address], [place] [address] December, [facility] [address] [id number] [address] [place] [address], [place] [address] Nov, [facility] [address] [id number] [address] [place] [address], [place] [address] Nov, [facility] [address] [id number] [address] [place] [address], [place] [address] Oct, [facility] [address] [id number] [address] [place] [address], [place] [address] Oct, [facility] [address] [id number] [address] [place] [address], [place] [address] Oct, [facility] [address] [id number] [address] [place] [address], [place] [address] Oct, [facility] [address] [id number] [address] [place] [address], [place] [address] Oct, [facility] [address] [id number] [address] [place] [address], [place] [address] Oct, [facility] [address] [id number] [address] [place] [address], [place] [address] Oct, [facility] [address] [id number] [address] [place] [address], [place] [address] 19 Oct, 2013 [facility] [address] [id number] [address] [place] [address], [place] [address] 18 Oct, 2013 [facility] [address] [id number] [address] [place] [address], [place] [address] 08 Oct, 2013 [facility] [address] [id number] [address] [place] [address], [place] [address] 07 Oct, 2013 [facility] [address] [id number] [address] [place] [address], [place] [address] 06 Oct, 2013 [facility] [address] [id number] [address] [place] [address], [place] [address] 06 Oct, 2013 [facility] [address] [id number] [address] [place] [address], [place] [address] Oct, [facility] [address] [id number] [address] [place] [address], [place] [address] 05 Oct, 2013 [facility] [address] [id number] [address] [place] [address], [place] [address] Oct, [facility] [address] [id number] [address] [place] [address], [place] [address] 05 Oct, 2013 [facility] [address] [id number] [address] [place] [address], [place] [address] Sep, [facility] [address] [id number] [address] [place] [address], [place] [address] Sep, [facility] [address] [id number] [address] [place] [address], [place] [address] Sep, [facility] [address] [id number] [address] [place] [address], [place] [address] Jun, [facility] [address] [id number] [address] [place] [address], [place] [address] Jun, [facility] [address] [id number] [address] [place] [address], [place] [address] Jun, [facility] [address] [id number] [address] [place] [address], [place] [address] Jun, [facility] [address] [id number] [address] [place] [address], [place] [address] Jun, [facility] [address] [id number] [address] [place] [address], [place] [address] Jun, [facility] [address] [id number] [address] [place] [address], [place] [address] May, [facility] [address] [id number] [address] [place] [address], [place] [address] May, [facility] [address] [id number] [address] [place] [address], [place] [id number] May, [facility] [address] [id number] [address] [place] [address], [place] [id number] May, [facility] [address] [id number] [address] [place] [address], [place] [id number] May, [facility] [address] [id number] [address] [place] [address], [place] [id number] May, [facility] [address] [id number] [address] [place] [address], [place] [id number] 26 Apr, 2013 [facility] [address] [id number] [address] [place] [address], [place] [id number] 24 Apr, 2013 [facility] [address] [id number] [address] [place] [address], [place] [id number] 23 Apr, 2012 [facility] [address] [id number] [address] [place] [address], [place] [id number] 20 Apr, 2013 [facility] [address] [id number] [address] [place] [address], [place] [id number] 19 Apr, 2013 [facility] [address] [id number] [address] [place] [address], [place] [id number] 17 Apr, 2013 [facility] [address] [id number] [address] [place] [id number] 13 Apr, 2013 [facility] [address] [id number] [address] [place] [address], [place] [id number] 11 Apr, 2013 [facility] [address] [id number] [address] [place] [address], [place] [id number] 09 Apr, 2013 [facility] [address] [id number] [address] [place] [address], [place] [id number] 05 Apr, 2013 [facility] [address] [id number] [address] [place] [address], [place] [id number] Mar, [facility] [address] [id number] [address] [place] [address], [place] [id number] Nov, [facility] [address] [id number] [address] [place] [address], [place] [id number] Oct, [facility] [address] [id number] [address] [place] [address], [place] [id number] Oct, [facility] [address] [id number] [address] [place] [address], [place] [id number] Sep, [facility] [address] [id number] [address] [place] [address], [place] [id number] May, [facility] [address] [id number] [address] [place] [address], [place] [id number] May, [facility] [address] [id number] [address] [place] [address], [place] [id number] May, [facility] [address] [id number] [address] [place] [address], [place] [id number] May, [facility] [address] [id number] [address] [place] [address], [place] [id number] 24 Apr, 2012 [facility] [address] [id number] [address] [place] [address], [place] [id number] 06 Apr, 2012 [facility] [address] [id number] [address] [place] [address], [place] [id number] Mar, [facility] [address] [id number] [address] [place] [id number] Feb, [facility] [address] [id number] [address] [place] [id number] Jul, [facility] [address] [id number] [address] [place] [id number] Jul, [facility] [address] [facility] [id number] [address] [place] [id number] Jul, [facility] [address] [id number] [address] [place] [id number] December, [facility] [address] [facility] [id number] [address] [place] [id number] December, [facility] [address] [facility] [id number] [address] [place] [id number] Oct, IMMUNIZATIONS No Known Immunizations SOCIAL HISTORY Never Assessed REASON FOR VISIT vomitting a couple times this morning and headache- had fever this am AUGUSTOtraLarisa N PLAN OF CARE Activity Details Follow Up prn Reason: VITAL SIGNS Height 68 in 2017-12-10 Weight 262.4 lbs 2017-12-10 Temperature 98.4 degrees Fahrenheit 2017-12-10 Heart Rate 76 bpm 2017-12-10 Respiratory Rate 20 2017-12-10 BMI 39.89 kg/m2 2017-12-10 Blood pressure systolic 120 mmHg 2017-12-10 Blood pressure diastolic 80 mmHg 2017-12-10 MEDICATIONS Medication Instructions Dosage Frequency Start Date End Date Duration S tatus Pepto-Bismol 524 MG/30ML Orally 8 time(s) a day 30 ml as needed Active Ibuprofen 400 MG Orally Three times a day 1 tablet with food or milk as needed 8h Active Ferrous Sulfate 325 (65 Fe) MG Orally [...]
--- OUTSIDE RECORDS SUMMARY | 2019-10-07 05:34 | XMS REPORT ---
Author Author Jailene HAY [facility] Address [address] [place] [address] Care Team Providers Care Laboratory Specialist Name Role Phone CRISTIANA HAY Unavailable PROBLEMS Type Condition ICD9-CM Code [id number] Code Onset Dates Condition S tatus SNOMED Code Problem Body mass index (BMI) of 40.0-44.9 in adult Z68.41 Active 202034716 Problem Elevated erythrocyte sedimentation rate R70.0 Active 653736544 Problem Morbid (severe) obesity due to excess calories E66 .01 Active 455678723 Problem Desire for Z31.9 Active 160347301 Problem Amenorrhea N91.2 Active 09303009 Problem Generalized anxiety disorder F41.1 A ctive 62260862 Problem Primary insomnia F51.01 Active 397 2004 Problem Iron deficiency anemia secondary to inadequate d ietary iron intake D50.8 Active 767212373 Problem Unspecified mood [affective] disorder F39 Active 36091452 ALLERGIES Substance Reaction Event Type Date Status Lamotrigine rash Drug Allergy December, Active Abigail Unknown Drug Allergy December, Active ENCOUNTERS Encounter Location Date Diagnosis [place] [id number] [facility] [id number] [address] [place] [id number] Mar, Generalized anxiety disorder F41.1 ; Unspecified mood [affective] disorder F39 ; BMI 40.0-44.9, adult Z68.41 and Myalgia M79.1 [facility] [address] [place] [id number] [address] [place] [address] Feb, Elevated erythrocyte sedimen tation rate R70.0 [facility] [address] [facility] [id number] [address] [place] [id number] Feb, Elevated erythrocyte sedimen tation rate R70.0 [facility] [address] [place] [id number] [address] [place] [address] Feb, Unprotected sexual intercour se Z72.51 ; Pain in left knee M25.562 and Pain in joints of right hand M25.541 [facility] [address] [place] [id number] [address] [place] [address] Feb, Pain in left knee M25.562 an d Pain in joints of right hand M25.541 [place] [address] [address] Feb, Unspecified mood [affective] disorder F39 ; Generalized anxiety disorder F41.1 ; Pain in joints of right hand M25.541 ; Pain in joints of left hand M25.542 ; Pain in right knee M25.561 ; Pain in left knee M25.562 and Morbid (severe) obesity due to excess calories E66.01 [facility] [address] [place] [id number] [address] [place] [address] Jan, Sore throat J02.9 ; Strep th roat J02.0 ; BMI 40.0-44.9, adult Z68.41 ; Dysuria R30.0 and Acute cystitis with hematuria N30.01 [place] [address] [place] [id number] [address] [place] [address] Jan, [place] [address] [place] [id number] [address] [place] [address] December, Abnormal MRI of head R93.0 [place] [address] [address] December, Subcutaneous nodules R22.9 ; Syncope, unspecified syncope type R55 ; Abnormal MRI of head R93.0 and Iron deficiency anemia secondary to inadequate dietary iron intake D50.8 [place] [address] [place] [id number] [address] [place] [address] December, [place] [address] [address] December, Iron deficiency anemia secon chuck to inadequate dietary iron intake D50.8 and BMI 40.0-44.9, adult Z68.41 [facility] [address] [address] Nov, Gastroenteritis K52.9 [facility] [address] [address] Nov, [place] [address] [address] Nov, Bilateral hand swelling M79. 89 ; Amenorrhea N91.2 ; Desire for Z31.9 ; Amenorrhea, unspecified N91.2 ; Bilateral swelling of feet M79.89 ; Rash R21 and Iron deficiency anemia, unspecified iron deficiency anemia type D50.9 [place] [address] [address] Nov, Bilateral hand swelling M79. 89 ; Bilateral swelling of feet M79.89 and Rash R21 [place] [address] [address] Sep, Desire for Z31.9 a nd Amenorrhea N91.2 [facility] [address] [place] [id number] [address] [place] [address] Aug, Scabies B86 [place] [address] [address] Aug, Amenorrhea, unspecified N91. 2 [place] [address] [address] Aug, Amenorrhea, unspecified N91. 2 [place] [address] [address] Aug, Amenorrhea N91.2 and Iron de ficiency anemia, unspecified iron deficiency anemia type D50.9 [place] [address] [place] [id number] [address] [place] [address] Aug, Iron deficiency anemia secon chuck to inadequate dietary iron intake D50.8 ; Amenorrhea N91.2 ; Generalized anxiety disorder F41.1 ; Unspecified mood [affective] disorder F39 and Nausea R11.0 [facility] [address] [facility] [id number] [address] [place] [address] Jul, Non-intractable vomiting wit h nausea, unspecified vomiting type R11.2 and Pleurisy R09.1 [facility] [address] [place] [id number] [address] [place] [address] Jul, [facility] [address] [place] [id number] [address] [place] [address] Jun, Unspecified mood [affective] disorder F39 [facility] [address] [place] [id number] [address] [place] [address] Jun, Unspecified mood [affective] disorder F39 and Generalized anxiety disorder F41.1 [facility] [address] [place] [id number] [address] [place] [address] May, Bilious vomiting with nausea R11.14 [facility] [address] [place] [id number] [address] [place] [address] May, Unspecified mood [affective] disorder F39 ; Generalized anxiety disorder F41.1 and Iron deficiency anemia, unspecified iron deficiency anemia type D50.9 [facility] [address] [place] [id number] [address] [place] [address] Apr, Unspecified mood [affective] disorder F39 [facility] [address] [place] [id number] [address] [place] [address] Apr, Iron deficiency anemia, unsp ecified iron deficiency anemia type D50.9 [facility] [address] [facility] [id number] [address] [place] [address] Apr, Iron deficiency anemia, unsp ecified iron deficiency anemia type D50.9 [facility] [address] [place] [id number] [address] [place] [address] Apr, Unspecified mood [affective] disorder F39 [facility] [address] [facility] [id number] [address] [place] [address] Apr, Abnormal CBC R79.89 [facility] [address] [facility] [id number] [address] [place] [address] 07 Apr, 2017 Abnormal CBC R79.89 [facility] [address] [facility] [id number] [address] [place] [address] 05 Apr, 2017 Encounter to establish care with new doctor Z76.89 ; Unspecified mood [affective] disorder F39 and Primary insomnia F51.01 [facility] [address] [facility] [id number] [address] [place] [address] Mar, Unspecified mood [affective] disorder F39 and Generalized anxiety disorder F41.1 [facility] [address] [facility] [id number] [address] [place] [address] Mar, Sore throat J02.9 and Strep pharyngitis J02.0 [facility] [id number] [place] [id number] Feb, Dental examination Z01.20 [facility] [address] [place] [id number] [place] [id number] Jan, Encounter for dental examina tion Z01.20 [facility] [address] [facility] [id number] [address] [place] [address] Nov, Fever, unspecified R50.9 and Acute nasopharyngitis J00 [facility] [address] [facility] [id number] [address] [place] [address] 18 Sep, 2015 Abdominal pain, acute, right upper quadrant 789.01 [facility] [address] [facility] [id number] [address] [place] [address] Sep, [facility] [address] [facility] [id number] [address] [place] [id number] Aug, Irritable bowel syndrome wit h diarrhea K58.0 [facility] [address] [place] [id number] [address] [place] [address] Aug, Urinary tract infection, sit e not specified N39.0 and Back pain M54.9 [facility] [address] [place] [id number] [address] [place] [address] Mar, Abdominal pain, acute, right upper quadrant 789.01 [facility] [address] [address] Mar, [facility] [address] [address] Mar, Nausea 787.02 and Abdominal pain, acute, right upper quadrant 789.01 [facility] [address] [address] Mar, Nausea 787.02 and Abdominal pain 789.00 [facility] [address] [address] Mar, Nausea 787.02 [facility] [address] [place] [id number] [address] [place] [address] Jan, Amenorrhea 626.0 [place] [address] [address] Jan, Amenorrhea 626.0 and Obesity 278.00 [facility] [address] [place] [id number] [address] [place] [address] December, Amenorrhea 626.0 and Cough 7 86.2 [facility] [address] [place] [id number] [address] [place] [address] Nov, [facility] [address] [address] Nov, [facility] [address] [place] [id number] [address] [place] [phone] May, [facility] [address] [address] May, [facility] [address] [id number] [address] [place] [address], [place] [address] Mar, [facility] [address] [id number] [address] [place] [address], [place] [address] Mar, [facility] [address] [id number] [address] [place] [address], [place] [address] Mar, [facility] [address] [id number] [address] [place] [address], [place] [address] Mar, [facility] [address] [id number] [address] [place] [address], [place] [address] Mar, [facility] [address] [id number] [address] [place] [address], [place] [address] Mar, [facility] [address] [id number] [address] [place] [address], [place] [address] Mar, [facility] [address] [id number] [address] [place] [address], [place] [address] Mar, [facility] [address] [id number] [address] [place] [address], [place] [address] Mar, [facility] [address] [id number] [address] [place] [address], [place] [address] Mar, [facility] [address] [id number] [address] [place] [address], [place] [address] Mar, [facility] [address] [id number] [address] [place] [address], [place] [address] Mar, [facility] [address] [id number] [address] [place] [address], [place] [address] Mar, [facility] [address] [id number] [address] [place] [address], [place] [address] Mar, [facility] [address] [id number] [address] [place] [address], [place] [address] Mar, [facility] [address] [id number] [address] [place] [address], [place] [address] Feb, 2013 [facility] [address] [id number] [facility] [address] Feb, 2013 [facility] [address] [id number] [address] [place] [address], [place] [address] Feb, 2013 [facility] [address] [id number] [address] [place] [address], [place] [address] Feb, 2013 [facility] [address] [id number] [address] [place] [address], [place] [address] Feb, 2013 [facility] [address] [id number] [address] [place] [address], [place] [address] Feb, 2013 [facility] [address] [id number] [address] [place] [address], [place] [address] Feb, 2013 [facility] [address] [id number] [address] [place] [address], [place] [address] Feb, 2013 [facility] [address] [id number] [address] [place] [address], [place] [address] Feb, 2013 [facility] [address] [id number] [address] [place] [address], [place] [address] Feb, 2013 [facility] [address] [id number] [address] [place] [address], [place] [address] Feb, 2013 [facility] [address] [id number] [address] [place] [address], [place] [address] Feb, 2013 [facility] [address] [id number] [address] [place] [address], [place] [address] Feb, 2013 [facility] [address] [id number] [address] [place] [address], [place] [address] Feb, 2013 [facility] [address] [id number] [address] [place] [address], [place] [address] Feb, 2013 [facility] [address] [id number] [address] [place] [address], [place] [address] Jan, [facility] [address] [id number] [facility] [address] Jan, [facility] [address] [id number] [facility] [address] Jan, [facility] [address] [id number] [facility] [address] Jan, [facility] [address] [id number] [facility] [address] Jan, [facility] [address] [id number] [facility] [address] Jan, [facility] [address] [id number] [facility] [address] Jan, [facility] [address] [id number] [address] [place] [address], [place] [address] Jan, [facility] [address] [id number] [address] [place] [address], [place] [address] Jan, [facility] [address] [id number] [address] [place] [address], [place] [address] Jan, [facility] [address] [id number] [address] [place] [address], [place] [address] Jan, [facility] [address] [id number] [address] [place] [address], [place] [address] Jan, [facility] [address] [id number] [address] [place] [address], [place] [address] Jan, [facility] [address] [id number] [address] [place] [address], [place] [address] December, [facility] [address] [id number] [address] [place] [address], [place] [address] December, [facility] [address] [id number] [address] [place] [address], [place] [address] December, [facility] [address] [id number] [address] [place] [address], [place] [address] December, [facility] [address] [id number] [facility] [address] December, [facility] [address] [id number] [facility] [address] December, [facility] [address] [id number] [facility] [address] December, [facility] [address] [id number] [address] [place] [address], [place] [address] December, [facility] [address] [id number] [facility] [address] December, [facility] [address] [id number] [address] [place] [address], [place] [address] December, [facility] [address] [id number] [address] [place] [address], [place] [address] December, [facility] [address] [id number] [address] [place] [address], [place] [address] December, [facility] [address] [id number] [address] [place] [address], [place] [address] Nov, [facility] [address] [id number] [address] [place] [address], [place] [address] Nov, [facility] [address] [id number] [address] [place] [address], [place] [address] Oct, [facility] [address] [id number] [address] [place] [address], [place] [address] Oct, [facility] [address] [id number] [address] [place] [address], [place] [address] Oct, [facility] [address] [id number] [address] [place] [address], [place] [address] Oct, [facility] [address] [id number] [address] [place] [address], [place] [address] Oct, [facility] [address] [id number] [facility] [address] 19 Oct, 2013 [facility] [address] [id number] [address] [place] [address], [place] [address] 19 Oct, 2013 [facility] [address] [id number] [facility] [address] Oct, [facility] [address] [id number] [address] [place] [address], [place] [address] 18 Oct, 2013 [facility] [address] [id number] [address] [place] [address], [place] [address] 08 Oct, 2013 [facility] [address] [id number] [address] [place] [address], [place] [address] 07 Oct, 2013 [facility] [address] [id number] [address] [place] [address], [place] [address] 06 Oct, 2013 [facility] [address] [id number] [address] [place] [address], [place] [address] 06 Oct, 2013 [facility] [address] [id number] [address] [place] [address], [place] [address] 05 Oct, 2013 [facility] [address] [id number] [address] [place] [address], [place] [address] 05 Oct, 2013 [facility] [address] [id number] [address] [place] [address], [place] [address] Oct, [facility] [address] [id number] [address] [place] [address], [place] [address] Oct, [facility] [address] [id number] [address] [place] [address], [place] [address] Sep, [facility] [address] [id number] [address] [place] [address], [place] [address] Sep, [facility] [address] [id number] [address] [place] [address], [place] [address] Sep, [facility] [address] [id number] [address] [place] [address], [place] [address] Jun, [facility] [address] [id number] [address] [place] [address], [place] [address] Jun, [facility] [address] [id number] [address] [place] [address], [place] [address] Jun, [facility] [address] [id number] [address] [place] [address], [place] [address] Jun, [facility] [address] [id number] [address] [place] [address], [place] [address] Jun, [facility] [address] [id number] [address] [place] [address], [place] [address] Jun, [facility] [address] [id number] [address] [place] [address], [place] [address] May, [facility] [address] [id number] [address] [place] [address], [place] [address] May, [facility] [address] [id number] [address] [place] [address] May, [facility] [address] [id number] [address] [place] [address], [place] [address] May, [facility] [address] [id number] [address] [place] [address] May, [facility] [address] [id number] [address] [place] [address] May, [facility] [address] [id number] [address] [place] [address] 26 Apr, 2013 [facility] [address] [id number] [address] [place] [address], [place] [address] 24 Apr, 2013 [facility] [address] [id number] [address] [place] [address] 23 Apr, 2013 [facility] [address] [id number] [address] [place] [address] 20 Apr, 2013 [facility] [address] [id number] [address] [place] [id number] 19 Apr, 2013 [facility] [address] [id number] [address] [place] [address], [place] [id number] 17 Sep, 2012 [facility] [address] [id number] [address] [place] [address], [place] [id number] 13 Apr, 2013 [facility] [address] [id number] [address] [place] [address], [place] [id number] 11 Apr, 2013 [facility] [address] [id number] [address] [place] [address], [place] [id number] 09 Apr, 2013 [facility] [address] [id number] [address] [place] [address], [place] [id number] 05 Apr, 2013 [facility] [address] [id number] [address] [place] [address], [place] [id number] Mar, [facility] [address] [id number] [address] [place] [address], [place] [id number] Nov, [facility] [address] [id number] [address] [place] [address], [place] [id number] Oct, [facility] [address] [id number] [address] [place] [address], [place] [id number] Oct, [facility] [address] [id number] [address] [place] [address], [place] [id number] Sep, [facility] [address] [id number] [address] [place] [address], [place] [id number] May, [facility] [address] [id number] [address] [place] [address], [place] [id number] May, [facility] [address] [id number] [address] [place] [address], [place] [id number] May, [facility] [address] [id number] [address] [place] [address], [place] [id number] 11 May, 2012 [facility] [address] [id number] [address] [place] [address], [place] [id number] 24 Apr, 2012 [facility] [address] [id number] [address] [place] [id number] Apr, [facility] [address] [id number] [address] [place] [id number] Mar, [facility] [address] [id number] [address] [place] [id number] Feb, [facility] [address] [id number] [address] [place] [id number] Jul, [facility] [address] [id number] [address] [place] [id number] Jul, [facility] [address] [id number] [address] [place] [id number] Jul, [facility] [address] [id number] [address] [place] [id number] December, [facility] [address] [id number] [address] [place] [id number] December, [facility] [address] [id number] [address] [place] [id number] Oct, IMMUNIZATIONS No Known Immunizations SOCIAL HISTORY Never Assessed REASON FOR VISIT Fatigue, patient states her iron has been low and she feels dizzy -- anamaria pedersen a PLAN OF CARE Activity Details Follow Up 3 Months, prn Reason:with PC P for f/u VITAL SIGNS Height 68 in 2017-12-28 Weight 268.0 lbs 2017-12-28 Temperature 98.2 degrees Fahrenheit 2017-12-28 Heart Rate 78 bpm 2017-12-28 Respiratory Rate 18 2017-12-28 BMI 40.74 kg/m2 2017-12-28 Blood pressure systolic 124 mmHg 2017-12-28 Blood pressure diastolic 78 mmHg 2017-12-28 MEDICATIONS Medication Instructions Dosage Frequency Start Date End Date Duration S edson Abilify 10 mg Orally Once a day 1 tablet 24h 14 Jun, 2017 90 days Active Ferrous Sulfate 325 (65 Fe) MG Orally 3 times a day 1 tablet 8h 21 Apr, 2017 Active Ibuprofen 400 MG Orally Three times a day 1 tablet with food or milk as needed 8h Active BusPIRone HCl 7.5 MG Orally 3 [...]
--- OUTSIDE RECORDS SUMMARY | 2019-10-07 05:35 | XMS REPORT ---
Author Author Jailene ALVES Organization [facility] Address [address] [place] [address] Care Team Providers Care Uke Operator Name Role Phone JOSELYNWANDARYL Unavailable PROBLEMS Type Condition ICD9-CM Code [id number] Code Onset Dates Condition S tatus SNOMED Code Problem Hives L50.9 Active 807354784 Problem Desire for Z31.9 Active 638159956 Problem Iron deficiency anemia secondary to inadequate d ietary iron intake D50.8 Active 255319795 Problem Generalized anxiety disorder F41.1 A ctive 33626307 Problem Primary insomnia F51.01 Active 397 2004 Problem Amenorrhea N91.2 Active 83259447 Problem Unspecified mood [affective] disorder F39 Active [id number] ALLERGIES No Information ENCOUNTERS Encounter Location Date Diagnosis [place] [id number] [facility] [id number] [address] [place] [address] Jan, [facility] [address] [place] [id number] [address] [place] [address] December, Abnormal MRI of head R93.0 [facility] [address] [place] [id number] [address] [place] [address] December, Subcutaneous nodules R22.9 ; Syncope, unspecified syncope type R55 ; Abnormal MRI of head R93.0 and Iron deficiency anemia secondary to inadequate dietary iron intake D50.8 [facility] [address] [facility] [id number] [address] [place] [address] December, [place] [address] [place] [id number] [address] [place] [address] December, Iron deficiency anemia secon chuck to inadequate dietary iron intake D50.8 and BMI 40.0-44.9, adult Z68.41 [facility] [address] [place] [id number] [address] [place] [address] Nov, Gastroenteritis K52.9 [facility] [address] [address] Nov, [facility] [address] [address] Nov, Bilateral hand swelling M79. 89 ; Amenorrhea N91.2 ; Desire for Z31.9 ; Amenorrhea, unspecified N91.2 ; Bilateral swelling of feet M79.89 ; Rash R21 and Iron deficiency anemia, unspecified iron deficiency anemia type D50.9 [place] [address] [address] Nov, Bilateral hand swelling M79. 89 ; Bilateral swelling of feet M79.89 and Rash R21 [place] [address] [address] Sep, Desire for Z31.9 a nd Amenorrhea N91.2 [facility] [address] [address] Aug, Scabies B86 [place] [address] [address] Aug, Amenorrhea, unspecified N91. 2 [place] [address] [address] Aug, Amenorrhea, unspecified N91. 2 [place] [address] [address] Aug, Amenorrhea N91.2 and Iron de ficiency anemia, unspecified iron deficiency anemia type D50.9 [place] [id number] [place] [address] Aug, Iron deficiency anemia secon chuck to inadequate dietary iron intake D50.8 ; Amenorrhea N91.2 ; Generalized anxiety disorder F41.1 ; Unspecified mood [affective] disorder F39 and Nausea R11.0 [facility] [address] [facility] [id number] [address] [place] [address] Jul, Non-intractable vomiting wit h nausea, unspecified vomiting type R11.2 and Pleurisy R09.1 [facility] [address] [facility] [id number] [address] [place] [address] Jul, [facility] [address] [facility] [id number] [address] [place] [address] Jun, Unspecified mood [affective] disorder F39 [facility] [address] [facility] [id number] [address] [place] [address] Jun, Unspecified mood [affective] disorder F39 and Generalized anxiety disorder F41.1 [facility] [address] [facility] [id number] [address] [place] [address] May, Bilious vomiting with nausea R11.14 [facility] [address] [facility] [id number] [address] [place] [address] May, Unspecified mood [affective] disorder F39 ; Generalized anxiety disorder F41.1 and Iron deficiency anemia, unspecified iron deficiency anemia type D50.9 [facility] [address] [place] [id number] [address] [place] [address] Apr, Unspecified mood [affective] disorder F39 [facility] [address] [facility] [id number] [address] [place] [address] Apr, Iron deficiency anemia, unsp ecified iron deficiency anemia type D50.9 [facility] [address] [facility] [id number] [address] [place] [address] Apr, Iron deficiency anemia, unsp ecified iron deficiency anemia type D50.9 [facility] [address] [facility] [id number] [address] [place] [address] Apr, Unspecified mood [affective] disorder F39 [facility] [address] [facility] [id number] [address] [place] [address] Apr, Abnormal CBC R79.89 [facility] [address] [facility] [id number] [address] [place] [address] Apr, Abnormal CBC R79.89 [facility] [address] [facility] [id number] [address] [place] [address] Apr, Encounter to establish care with new doctor Z76.89 ; Unspecified mood [affective] disorder F39 and Primary insomnia F51.01 [facility] [address] [facility] [id number] [address] [place] [address] Mar, Unspecified mood [affective] disorder F39 and Generalized anxiety disorder F41.1 [facility] [address] [facility] [id number] [address] [place] [phone] Mar, Sore throat J02.9 and Strep pharyngitis J02.0 [facility] [id number] [place] [id number] Feb, Dental examination Z01.20 [facility] [id number] [id number] Jan, Encounter for dental examina tion Z01.20 [facility] [address] [place] [id number] [address] [place] [address] Nov, Fever, unspecified R50.9 and Acute nasopharyngitis J00 [facility] [address] [facility] [id number] [address] [place] [address] 18 Sep, 2015 Abdominal pain, acute, right upper quadrant 789.01 [facility] [address] [facility] [id number] [address] [place] [address] Sep, [facility] [address] [facility] [id number] [address] [place] [address] Aug, Irritable bowel syndrome wit h diarrhea K58.0 [facility] [address] [facility] [id number] [address] [place] [address] Aug, Urinary tract infection, sit e not specified N39.0 and Back pain M54.9 [facility] [address] [facility] [id number] [address] [place] [address] Mar, Abdominal pain, acute, right upper quadrant 789.01 [facility] [address] [place] [id number] [address] [place] [address] Mar, [facility] [address] [place] [id number] [place] [address] Mar, Nausea 787.02 and Abdominal pain, acute, right upper quadrant 789.01 [facility] [address] [place] [id number] [place] [address] Mar, Nausea 787.02 and Abdominal pain 789.00 [facility] [address] [place] [id number] [place] [address] Mar, Nausea 787.02 [facility] [address] [address] Jan, Amenorrhea 626.0 [facility] [address] [address] Jan, Amenorrhea 626.0 and Obesity 278.00 [facility] [address] [address] December, Amenorrhea 626.0 and Cough 7 86.2 [facility] [address] [address] Nov, [facility] [address] [place] [id number] [place] [address] Nov, [facility] [address] [address] May, [facility] [address] [place] [id number] [place] [address] May, [facility] [address] [address] Mar, [facility] [address] [id number] [facility] [address] Mar, [facility] [address] [id number] [facility] [place] [address] Mar, [facility] [address] [id number] [facility] [place] [address] Mar, [facility] [address] [id number] [facility] [place] [address] Mar, [facility] [address] [id number] [facility] [place] [address] Mar, [facility] [address] [id number] [address] [place] [address], [place] [address] Mar, [facility] [address] [id number] [address] [place] [address], [place] [address] Mar, [facility] [address] [id number] [address] [place] [address], [place] [address] Mar, [facility] [address] [id number] [address] [place] [address], [place] [address] Mar, [facility] [address] [id number] [address] [place] [address], [place] [address] Mar, [facility] [address] [id number] [address] [place] [address], [place] [address] Mar, [facility] [address] [id number] [address] [place] [address], [place] [address] Mar, [facility] [address] [id number] [address] [place] [address], [place] [address] Mar, [facility] [address] [id number] [address] [place] [address], [place] [address] Mar, [facility] [address] [id number] [address] [place] [address], [place] [address] Feb, [facility] [address] [id number] [address] [place] [address], [place] [address] Feb, 2013 [facility] [address] [id number] [facility] [place] [address] Feb, 2013 [facility] [address] [id number] [address] [place] [address], [place] [address] Feb, [facility] [address] [id number] [address] [place] [address], [place] [address] Feb, [facility] [address] [id number] [address] [place] [address], [place] [address] Feb, [facility] [address] [id number] [address] [place] [address], [place] [address] Feb, [facility] [address] [id number] [address] [place] [address], [place] [address] Feb, [facility] [address] [id number] [address] [place] [address], [place] [address] Feb, [facility] [address] [id number] [address] [place] [address], [place] [address] Feb, [facility] [address] [id number] [address] [place] [address], [place] [address] Feb, [facility] [address] [id number] [address] [place] [address], [place] [address] Feb, [facility] [address] [id number] [address] [place] [address], [place] [address] Feb, [facility] [address] [id number] [address] [place] [address], [place] [address] Feb, [facility] [address] [id number] [address] [place] [address], [place] [address] Feb, [facility] [address] [id number] [address] [place] [address], [place] [address] Jan, [facility] [address] [id number] [address] [place] [address], [place] [address] Jan, [facility] [address] [id number] [facility] [place] [address] Jan, [facility] [address] [id number] [address] [place] [address], [place] [address] Jan, [facility] [address] [id number] [address] [place] [address], [place] [address] Jan, [facility] [address] [id number] [address] [place] [address], [place] [address] Jan, [facility] [address] [id number] [address] [place] [address], [place] [address] Jan, [facility] [address] [id number] [address] [place] [address], [place] [address] Jan, [facility] [address] [id number] [address] [place] [address], [place] [address] Jan, [facility] [address] [id number] [address] [place] [address], [place] [address] Jan, [facility] [address] [id number] [address] [place] [address], [place] [address] Jan, [facility] [address] [id number] [address] [place] [address], [place] [address] Jan, [facility] [address] [id number] [address] [place] [address], [place] [address] Jan, [facility] [address] [id number] [address] [place] [address], [place] [address] December, [facility] [address] [id number] [address] [place] [address], [place] [address] December, [facility] [address] [id number] [address] [place] [address], [place] [address] December, [facility] [address] [id number] [address] [place] [address], [place] [address] December, [facility] [address] [id number] [address] [place] [address], [place] [address] December, [facility] [address] [id number] [address] [place] [address], [place] [address] December, [facility] [address] [id number] [address] [place] [address], [place] [address] December, [facility] [address] [id number] [address] [place] [address], [place] [address] December, [facility] [address] [id number] [address] [place] [address], [place] [address] December, [facility] [address] [id number] [address] [place] [address], [place] [address] December, [facility] [address] [id number] [address] [place] [address], [place] [address] December, [facility] [address] [id number] [address] [place] [address], [place] [address] December, [facility] [address] [id number] [address] [place] [address], [place] [address] Nov, [facility] [address] [id number] [address] [place] [address], [place] [address] Nov, [facility] [address] [id number] [address] [place] [address], [place] [address] Oct, [facility] [address] [id number] [address] [place] [address], [place] [address] Oct, [facility] [address] [id number] [address] [place] [address], [place] [address] Oct, [facility] [address] [id number] [address] [place] [address], [place] [address] Oct, [facility] [address] [id number] [address] [place] [address], [place] [address] Oct, [facility] [address] [id number] [address] [place] [address], [place] [address] Oct, [facility] [address] [id number] [address] [place] [address], [place] [address] Oct, [facility] [address] [id number] [facility] [place] [address] Oct, [facility] [address] [id number] [address] [place] [address], [place] [address] 18 Oct, 2013 [facility] [address] [id number] [address] [place] [address], [place] [address] 08 Oct, 2013 [facility] [address] [id number] [address] [place] [address], [place] [address] 07 Oct, 2013 [facility] [address] [id number] [address] [place] [address], [place] [address] Oct, [facility] [address] [id number] [address] [place] [address], [place] [address] Oct, [facility] [address] [id number] [address] [place] [address], [place] [address] Oct, [facility] [address] [id number] [address] [place] [address], [place] [address] Oct, [facility] [address] [id number] [address] [place] [address], [place] [address] Oct, [facility] [address] [id number] [address] [place] [address], [place] [address] Oct, [facility] [address] [id number] [address] [place] [address], [place] [address] Sep, [facility] [address] [id number] [address] [place] [address], [place] [address] Sep, [facility] [address] [id number] [address] [place] [address], [place] [address] Sep, [facility] [address] [id number] [address] [place] [address], [place] [address] Jun, [facility] [address] [id number] [address] [place] [address], [place] [address] Jun, [facility] [address] [id number] [address] [place] [address], [place] [address] Jun, [facility] [address] [id number] [address] [place] [address], [place] [address] Jun, [facility] [address] [id number] [address] [place] [address], [place] [address] Jun, [facility] [address] [id number] [address] [place] [address], [place] [address] Jun, [facility] [address] [id number] [address] [place] [address], [place] [address] May, [facility] [address] [id number] [address] [place] [address], [place] [address] May, [facility] [address] [id number] [address] [place] [address], [place] [address] May, [facility] [address] [id number] [address] [place] [address], [place] [address] May, [facility] [address] [id number] [address] [place] [address], [place] [address] 15 May, 2013 [facility] [address] [id number] [address] [place] [address], [place] [address] May, [facility] [address] [id number] [address] [place] [address], [place] [address] 26 Apr, 2013 [facility] [address] [id number] [address] [place] [address], [place] [address] 24 Sep2012 [facility] [address] [id number] [address] [place] [address], [place] [address] 23 Sep, 2012 [facility] [address] [id number] [address] [place] [address], [place] [address] 20 Sep, 2012 [facility] [address] [id number] [address] [place] [address], [place] [address] 19 Sep, 2012 [facility] [address] [id number] [address] [place] [address], [place] [address] 17 Apr, 2013 [facility] [address] [id number] [address] [place] [address], [place] [address] 13 Apr, 2012 [facility] [address] [id number] [address] [place] [address], [place] [address] 11 Apr, 2013 [facility] [address] [id number] [address] [place] [address], [place] [address] 09 Apr, 2013 [facility] [address] [id number] [address] [place] [address], [place] [address] 05 Apr, 2013 [facility] [address] [id number] [address] [place] [address], [place] [id number] Mar, [facility] [address] [id number] [address] [place] [address], [place] [id number] Nov, [facility] [address] [id number] [address] [place] [address], [place] [id number] Oct, [facility] [address] [id number] [address] [place] [address], [place] [id number] Oct, [facility] [address] [id number] [address] [place] [address], [place] [id number] Sep, [facility] [address] [id number] [address] [place] [address], [place] [id number] May, [facility] [address] [id number] [address] [place] [address], [place] [id number] 27 May, 2012 [facility] [address] [id number] [address] [place] [address], [place] [id number] May, [facility] [address] [id number] [address] [place] [address], [place] [id number] 11 May, 2012 [facility] [address] [id number] [address] [place] [address], [place] [id number] 24 Apr, 2012 [facility] [address] [id number] [address] [place] [address], [place] [id number] 06 Apr, 2012 [facility] [address] [id number] [address] [place] [id number] Mar, [facility] [address] [id number] [address] [place] [id number] Feb, [facility] [address] [id number] [address] [place] [id number] Jul, [facility] [address] [id number] [address] [place] [phone] Jul, [facility] [address] [id number] [address] [place] [phone] Jul, [facility] [address] [id number] [address] [place] [id number] December, [facility] [address] [facility] [id number] [address] [place] [phone] December, [facility] [address] [facility] [id number] [address] [place] [phone] Oct, IMMUNIZATIONS No Known Immunizations SOCIAL HISTORY Never Assessed REASON FOR VISIT Lab results PLAN OF CARE VITAL SIGNS MEDICATIONS Unknown Medications RESULTS Name Result Date Reference Range Ultrasound : Pelvic, COMPLETE (REFLEX [id number]) 2017-09-03 PROCEDURES No Known procedures INSTRUCTIONS MEDICATIONS ADMINISTERED No Known Medications MEDICAL (GENERAL) HISTORY Type Description Date Medical History anemia Medical History asthma Surgical History section x2 Surgical History hernia repair Hospitalization History surgeries Hospitalization History possible gallbladder problems Hospitalization History ER visit for UTI 09/12/15 Hospitalization History dizziness, blackout 12/28/2017
--- OUTSIDE RECORDS SUMMARY | 2019-10-07 05:35 | XMS REPORT ---
Author Author Jailene ALVES Organization [facility] Address [address] [place] [address] Care Team Providers Care Tiltrotor Crew Chief Name Role Phone JOSELYN DARYL Unavailable PROBLEMS Type Condition ICD9-CM Code [id number] Code Onset Dates Condition S tatus SNOMED Code Problem Hives L50.9 Active 139492994 Problem Desire for Z31.9 Active 870866729 Problem Iron deficiency anemia secondary to inadequate d ietary iron intake D50.8 Active 284475266 Problem Generalized anxiety disorder F41.1 A ctive 02344830 Problem Primary insomnia F51.01 Active 397 2004 Problem Amenorrhea N91.2 Active 86552790 Problem Unspecified mood [affective] disorder F39 Active [id number] ALLERGIES No Information ENCOUNTERS Encounter Location Date Diagnosis [facility] [address] [facility] [id number] [address] [place] [address] Jan, Sore throat J02.9 ; Strep th roat J02.0 ; BMI 40.0-44.9, adult Z68.41 ; Dysuria R30.0 and Acute cystitis with hematuria N30.01 [facility] [address] [facility] [id number] [address] [place] [address] Jan, [facility] [address] [place] [id number] [address] [place] [address] December, Abnormal MRI of head R93.0 [facility] [address] [id number] [address] [place] [address] December, Subcutaneous nodules R22.9 ; Syncope, unspecified syncope type R55 ; Abnormal MRI of head R93.0 and Iron deficiency anemia secondary to inadequate dietary iron intake D50.8 [facility] [address] [id number] [address] [place] [address] December, [place] [address] [place] [id number] [address] [place] [address] December, Iron deficiency anemia secon chuck to inadequate dietary iron intake D50.8 and BMI 40.0-44.9, adult Z68.41 [facility] [address] [id number] [address] [place] [address] Nov, Gastroenteritis K52.9 [place] [address] [address] Nov, [place] [address] [address] Nov, Bilateral hand swelling M79. 89 ; Amenorrhea N91.2 ; Desire for Z31.9 ; Amenorrhea, unspecified N91.2 ; Bilateral swelling of feet M79.89 ; Rash R21 and Iron deficiency anemia, unspecified iron deficiency anemia type D50.9 [place] [address] [place] [id number] [address] [place] [address] Nov, Bilateral hand swelling M79. 89 ; Bilateral swelling of feet M79.89 and Rash R21 [place] [address] [id number] [address] [place] [address] Sep, Desire for Z31.9 a nd Amenorrhea N91.2 [facility] [id number] [place] [address] Aug, Scabies B86 [place] [address] [place] [id number] [address] [place] [address] Aug, Amenorrhea, unspecified N91. 2 [place] [address] [address] Aug, Amenorrhea, unspecified N91. 2 [place] [address] [id number] [address] [place] [address] Aug, Amenorrhea N91.2 and Iron de ficiency anemia, unspecified iron deficiency anemia type D50.9 [facility] [address] [facility] [id number] [address] [place] [address] Aug, Iron deficiency anemia [place] to inadequate dietary iron intake D50.8 ; Amenorrhea N91.2 ; Generalized anxiety disorder F41.1 ; Unspecified mood [affective] disorder F39 and Nausea R11.0 [facility] [address] [facility] [id number] [address] [place] [address] Jul, Non-intractable vomiting wit h nausea, unspecified vomiting type R11.2 and Pleurisy R09.1 [facility] [address] [facility] [id number] [address] [place] [address] Jul, [facility] [address] [facility] [id number] [address] [place] [address] Jun, Unspecified mood [affective] disorder F39 [place] [address] [facility] [id number] [address] [place] [address] Jun, Unspecified mood [affective] disorder F39 and Generalized anxiety disorder F41.1 [facility] [address] [facility] [id number] [address] [place] [address] May, Bilious vomiting with nausea R11.14 [facility] [address] [facility] [id number] [address] [place] [address] May, Unspecified mood [affective] disorder F39 ; Generalized anxiety disorder F41.1 and Iron deficiency anemia, unspecified iron deficiency anemia type D50.9 [facility] [address] [facility] [id number] [address] [place] [address] Apr, Unspecified mood [affective] disorder F39 [facility] [address] [facility] [id number] [address] [place] [address] Apr, Iron deficiency anemia, unsp ecified iron deficiency anemia type D50.9 [facility] [address] [facility] [id number] [address] [place] [address] Apr, Iron deficiency anemia, unsp ecified iron deficiency anemia type D50.9 [facility] [address] [facility] [id number] [address] [place] [address] 18 Apr, 2017 Unspecified mood [affective] disorder F39 [facility] [address] [facility] [id number] [address] [place] [address] 07 Apr, 2017 Abnormal CBC R79.89 [facility] [address] [facility] [id number] [address] [place] [address] 07 Apr, 2017 Abnormal CBC R79.89 [facility] [address] [facility] [id number] [address] [place] [address] 05 Apr, 2017 Encounter to establish care with new doctor Z76.89 ; Unspecified mood [affective] disorder F39 and Primary insomnia F51.01 [facility] [address] [facility] [id number] [address] [place] [address] Mar, Unspecified mood [affective] disorder F39 and Generalized anxiety disorder F41.1 [facility] [address] [id number] [address] [place] [address] Mar, Sore throat J02.9 and Strep pharyngitis J02.0 [facility] [id number] [place] [id number] Feb, Dental examination Z01.20 [facility] [address] [place] [id number] Jan, Encounter for dental examina tion Z01.20 [facility] [address] [id number] [address] [place] [address] Nov, Fever, unspecified R50.9 and Acute nasopharyngitis J00 [facility] [address] [id number] [address] [place] [address] 18 Sep, 2015 Abdominal pain, acute, right upper quadrant 789.01 [facility] [address] [id number] [address] [place] [address] 10 Sep, 2015 [facility] [address] [id number] [address] [place] [address] Aug, Irritable bowel syndrome wit h diarrhea K58.0 [facility] [address] [id number] [place] [address] Aug, Urinary tract infection, sit e not specified N39.0 and Back pain M54.9 [facility] [address] [address] [id number] [address] [place] [address] Mar, Abdominal pain, acute, right upper quadrant 789.01 [facility] [address] [id number] [place] [address] Mar, [facility] [address] [address] Mar, Nausea 787.02 and Abdominal pain, acute, right upper quadrant 789.01 [facility] [address] [address] Mar, Nausea 787.02 and Abdominal pain 789.00 [facility] [address] [place] [id number] [address] [place] [address] Mar, Nausea 787.02 [facility] [address] [place] [id number] [address] [place] [address] Jan, Amenorrhea 626.0 [facility] [address] [place] [id number] [address] [place] [address] Jan, Amenorrhea 626.0 and Obesity 278.00 [facility] [address] [id number] [address] [place] [address] December, Amenorrhea 626.0 and Cough 7 86.2 [facility] [address] [address] [id number] [address] [place] [address] Nov, [facility] [address] [id number] [address] [place] [address] Nov, [facility] [address] [id number] [address] [place] [address] May, [facility] [address] [id number] [address] [place] [address], [place] [address] May, [facility] [address] [id number] [address] [place] [address], [place] [address] Mar, [facility] [address] [id number] [address] [place] [address], [place] [address] Mar, [facility] [address] [id number] [address] [place] [address], [place] [address] Mar, [facility] [address] [id number] [address] [place] [address], [place] [address] Mar, [facility] [address] [id number] [address] [place] [address], [place] [address] Mar, [facility] [address] [id number] [address] [place] [address], [place] [address] Mar, [facility] [address] [id number] [address] [place] [address], [place] [address] Mar, [facility] [address] [id number] [address] [place] [address], [place] [address] Mar, [facility] [address] [id number] [address] [place] [address], [place] [address] Mar, [facility] [address] [id number] [address] [place] [address], [place] [address] Mar, [facility] [address] [id number] [address] [place] [address], [place] [address] Mar, [facility] [address] [id number] [address] [place] [address], [place] [address] Mar, [facility] [address] [id number] [address] [place] [address], [place] [address] Mar, [facility] [address] [id number] [address] [place] [address], [place] [address] Mar, [facility] [address] [id number] [address] [place] [address], [place] [address] Mar, 2013 [facility] [address] [id number] [address] [place] [address], [place] [address] Feb, 2013 [facility] [address] [id number] [address] [place] [address], [place] [address] Feb, 2013 [facility] [address] [id number] [address] [place] [address], [place] [address] Feb, 2013 [facility] [address] [id number] [address] [place] [address], [place] [address] Feb, 2013 [facility] [address] [id number] [address] [place] [address], [place] [address] Feb, 2013 [facility] [address] [id number] [address] [place] [address], [place] [address] Feb, 2013 [facility] [address] [id number] [address] [place] [address], [place] [address] Feb, 2013 [facility] [address] [id number] [address] [place] [address], [place] [address] Feb, 2013 [facility] [address] [id number] [address] [place] [address], [place] [address] Feb, 2013 [facility] [address] [id number] [address] [place] [address], [place] [address] Feb, 2013 [facility] [address] [id number] [address] [place] [address], [place] [address] Feb, 2013 [facility] [address] [id number] [address] [place] [address], [place] [address] Feb, 2013 [facility] [address] [id number] [address] [place] [address], [place] [address] Feb, 2013 [facility] [address] [id number] [address] [place] [address], [place] [address] Feb, 2013 [facility] [address] [id number] [address] [place] [address], [place] [address] Feb, [facility] [address] [id number] [facility] [place] [address] Jan, [facility] [address] [id number] [facility] [place] [address] Jan, [facility] [address] [id number] [facility] [place] [address] Jan, [facility] [address] [id number] [address] [place] [address], [place] [address] Jan, [facility] [address] [id number] [address] [place] [address], [place] [address] Jan, [facility] [address] [id number] [address] [place] [address], [place] [address] Jan, [facility] [address] [id number] [address] [place] [address], [place] [address] Jan, [facility] [address] [id number] [address] [place] [address], [place] [address] Jan, [facility] [address] [id number] [address] [place] [address], [place] [address] Jan, [facility] [address] [id number] [address] [place] [address], [place] [address] Jan, [facility] [address] [id number] [address] [place] [address], [place] [address] Jan, [facility] [address] [id number] [address] [place] [address], [place] [address] Jan, [facility] [address] [id number] [address] [place] [address], [place] [address] Jan, [facility] [address] [id number] [address] [place] [address], [place] [address] December, [facility] [address] [id number] [address] [place] [address], [place] [address] December, [facility] [address] [id number] [address] [place] [address], [place] [address] December, [facility] [address] [id number] [facility] [place] [address] December, [facility] [address] [id number] [address] [place] [address], [place] [address] December, [facility] [address] [id number] [address] [place] [address], [place] [address] December, [facility] [address] [id number] [address] [place] [address], [place] [address] December, [facility] [address] [id number] [address] [place] [address], [place] [address] December, [facility] [address] [id number] [address] [place] [address], [place] [address] December, [facility] [address] [id number] [address] [place] [address], [place] [address] December, [facility] [address] [id number] [address] [place] [address], [place] [address] December, [facility] [address] [id number] [address] [place] [address], [place] [address] December, [facility] [address] [id number] [address] [place] [address], [place] [address] Nov, [facility] [address] [id number] [address] [place] [address], [place] [address] Nov, [facility] [address] [id number] [address] [place] [address], [place] [address] Oct, [facility] [address] [id number] [address] [place] [address], [place] [address] Oct, [facility] [address] [id number] [address] [place] [address], [place] [address] Oct, [facility] [address] [id number] [address] [place] [address], [place] [address] Oct, [facility] [address] [id number] [facility] [place] [address] 19 Oct, 2013 [facility] [address] [id number] [facility] [place] [address] 19 Oct, 2013 [facility] [address] [id number] [facility] [place] [address] 19 Oct, 2013 [facility] [address] [id number] [facility] [place] [address] 19 Oct, 2013 [facility] [address] [id number] [address] [place] [address], [place] [address] 18 Oct, 2013 [facility] [address] [id number] [address] [place] [address], [place] [address] 08 Oct, 2013 [facility] [address] [id number] [address] [place] [address], [place] [address] 07 Oct, 2013 [facility] [address] [id number] [address] [place] [address], [place] [address] 06 Oct, 2013 [facility] [address] [id number] [address] [place] [address], [place] [address] 06 Oct, 2013 [facility] [address] [id number] [address] [place] [address], [place] [address] 05 Oct, 2013 [facility] [address] [id number] [address] [place] [address], [place] [address] 05 Oct, 2013 [facility] [address] [id number] [address] [place] [address], [place] [address] 05 Oct, 2013 [facility] [address] [id number] [address] [place] [address], [place] [address] 05 Oct, 2013 [facility] [address] [id number] [address] [place] [address], [place] [address] Sep, [facility] [address] [id number] [address] [place] [address], [place] [address] Sep, [facility] [address] [id number] [address] [address] Sep, [facility] [address] [id number] [address] [place] [address], [place] [address] Jun, [facility] [address] [id number] [address] [place] [address], [place] [address] Jun, [facility] [address] [id number] [address] [place] [address], [place] [address] Jun, [facility] [address] [id number] [address] [place] [address] Jun, [facility] [address] [id number] [address] [place] [address], [place] [address] Jun, [facility] [address] [id number] [address] [place] [address], [place] [address] Jun, [facility] [address] [id number] [address] [place] [address], [place] [address] May, [facility] [address] [id number] [address] [place] [address], [place] [address] May, [facility] [address] [id number] [address] [place] [address], [place] [address] May, [facility] [address] [id number] [address] [place] [address] May, [facility] [address] [id number] [address] [place] [address] May, [facility] [address] [id number] [address] [place] [address] May, [facility] [address] [id number] [address] [place] [address], [place] [address] Apr, [facility] [address] [id number] [address] [place] [address], [place] [address] Apr, [facility] [address] [id number] [address] [place] [address], [place] [address] Apr, [facility] [address] [id number] [address] [place] [address], [place] [address] 20 Sep, 2012 [facility] [address] [id number] [address] [place] [address], [place] [address] 19 Sep, 2012 [facility] [address] [id number] [address] [place] [address], [place] [address] 17 Apr, 2012 [facility] [address] [id number] [address] [place] [address], [place] [address] 13 Apr, 2012 [facility] [address] [id number] [address] [place] [address], [place] [address] 11 Apr, 2012 [facility] [address] [id number] [address] [place] [address], [place] [address] 09 Apr, 2013 [facility] [address] [id number] [address] [place] [address], [place] [address] 05 Apr, 2013 [facility] [address] [id number] [address] [place] [address], [place] [address] Mar, [facility] [address] [id number] [address] [place] [address], [place] [address] Nov, [facility] [address] [id number] [address] [place] [address], [place] [address] Oct, [facility] [address] [id number] [address] [place] [address], [place] [address] Oct, [facility] [address] [id number] [address] [place] [address], [place] [address] Sep, [facility] [address] [id number] [address] [place] [address], [place] [address] May, [facility] [address] [id number] [address] [place] [address], [place] [address] May, [facility] [address] [id number] [address] [place] [address], [place] [address] May, [facility] [address] [id number] [address] [place] [address], [place] [address] May, [facility] [address] [id number] [address] [place] [id number] 24 Apr, 2012 [facility] [address] [id number] [address] [place] [id number] Apr, [facility] [address] [id number] [address] [place] [id number] Mar, [facility] [address] [id number] [address] [place] [id number] Feb, [facility] [address] [id number] [address] [place] [id number] Jul, [facility] [address] [id number] [address] [place] [address] Jul, [facility] [address] [id number] [address] [place] [id number] Jul, [facility] [address] [id number] [address] [place] [phone] December, [facility] [address] [id number] [address] [place] [id number] December, [facility] [address] [id number] [address] [place] [id number] Oct, IMMUNIZATIONS No Known Immunizations SOCIAL HISTORY [...]
--- OUTSIDE RECORDS SUMMARY | 2019-10-07 05:35 | XMS REPORT ---
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 Name Role Phone DARYL ALVSE Unavailable PROBLEMS Type Condition ICD9-CM Code BPD14-UY Code Onset Dates Condition S tatus SNOMED Code Problem Hives L50.9 Active 370042468 Problem Desire for Z31.9 Active 916825558 Problem Iron deficiency anemia secondary to inadequate d ietary iron intake D50.8 Active 255377764 Problem Generalized anxiety disorder F41.1 A ctive 74641108 Problem Primary insomnia F51.01 Active 397 2004 Problem Amenorrhea N91.2 Active 97021908 Problem Unspecified mood [affective] disorder F39 Active [id number] ALLERGIES No Information ENCOUNTERS Encounter Location Date Diagnosis [facility] [address] [id number] [address] [place] [address] December, Abnormal MRI of head R93.0 [place] [address] [id number] [address] [place] [address] December, Subcutaneous nodules R22.9 ; Syncope, unspecified syncope type R55 ; Abnormal MRI of head R93.0 and Iron deficiency anemia secondary to inadequate dietary iron intake D50.8 [facility] [address] [id number] [address] [place] [address] December, [facility] [address] [id number] [address] [place] [address] December, Iron deficiency anemia secon chuck to inadequate dietary iron intake D50.8 and BMI 40.0-44.9, adult Z68.41 [facility] [address] [facility] [id number] [address] [place] [address] Nov, Gastroenteritis K52.9 [place] [address] [id number] [place] [address] Nov, [place] [address] [address] Nov, Bilateral hand swelling M79. 89 ; Amenorrhea N91.2 ; Desire for Z31.9 ; Amenorrhea, unspecified N91.2 ; Bilateral swelling of feet M79.89 ; Rash R21 and Iron deficiency anemia, unspecified iron deficiency anemia type D50.9 [place] [address] [address] Nov, Bilateral hand swelling M79. 89 ; Bilateral swelling of feet M79.89 and Rash R21 [place] [address] [address] Sep, Desire for Z31.9 a nd Amenorrhea N91.2 [facility] [place] [address] [address] Aug, Scabies B86 [place] [address] [address] Aug, Amenorrhea, unspecified N91. 2 [place] [address] [address] Aug, Amenorrhea, unspecified N91. 2 [place] [address] [address] Aug, Amenorrhea N91.2 and Iron de ficiency anemia, unspecified iron deficiency anemia type D50.9 [place] [address] [id number] [place] [address] Aug, Iron deficiency anemia secon chuck to inadequate dietary iron intake D50.8 ; Amenorrhea N91.2 ; Generalized anxiety disorder F41.1 ; Unspecified mood [affective] disorder F39 and Nausea R11.0 [facility] [address] [address] Jul, Non-intractable vomiting wit h nausea, unspecified vomiting type R11.2 and Pleurisy R09.1 [facility] [address] [facility] [id number] [address] [place] [address] Jul, [facility] [address] [id number] [address] [place] [address] Jun, Unspecified mood [affective] disorder F39 [facility] [address] [id number] [address] [place] [address] Jun, Unspecified mood [affective] disorder F39 and Generalized anxiety disorder F41.1 [place] [address] [facility] [id number] [address] [place] [address] May, Bilious vomiting with nausea R11.14 [place] [address] [facility] [id number] [address] [place] [address] May, Unspecified mood [affective] disorder F39 ; Generalized anxiety disorder F41.1 and Iron deficiency anemia, unspecified iron deficiency anemia type D50.9 [facility] [address] [id number] [address] [place] [address] Apr, Unspecified mood [affective] disorder F39 [facility] [address] [id number] [address] [place] [address] Apr, Iron deficiency anemia, unsp ecified iron deficiency anemia type D50.9 [facility] [address] [id number] [address] [place] [address] Apr, Iron deficiency anemia, unsp ecified iron deficiency anemia type D50.9 [facility] [address] [id number] [address] [place] [address] Apr, Unspecified mood [affective] disorder F39 [facility] [address] [id number] [address] [place] [address] Apr, Abnormal CBC R79.89 [facility] [address] [facility] [id number] [address] [place] [address] 07 Apr, 2017 Abnormal CBC R79.89 [facility] [address] [facility] [id number] [address] [place] [address] 05 Apr, 2017 Encounter to establish care with new doctor Z76.89 ; Unspecified mood [affective] disorder F39 and Primary insomnia F51.01 [facility] [address] [facility] [id number] [address] [place] [address] 2017 Unspecified mood [affective] disorder F39 and Generalized anxiety disorder F41.1 [facility] [address] [facility] [id number] [address] [place] [address] Mar, Sore throat J02.9 and Strep pharyngitis J02.0 [facility] [id number] [place] [place] [id number] Feb, Dental examination Z01.20 [facility] [id number] [place] [address] [id number] Jan, Encounter for dental examina tion Z01.20 [facility] [address] [id number] [address] [place] [address] Nov, Fever, unspecified R50.9 and Acute nasopharyngitis J00 [facility] [address] [facility] [id number] [address] [place] [address] 18 Sep, 2015 Abdominal pain, acute, right upper quadrant 789.01 [facility] [address] [id number] [address] [place] [address] Sep, [facility] [address] [id number] [address] [place] [address] Aug, Irritable bowel syndrome wit h diarrhea K58.0 [facility] [address] [facility] [id number] [address] [place] [address] Aug, Urinary tract infection, sit e not specified N39.0 and Back pain M54.9 [facility] [address] [id number] [address] [place] [address] Mar, Abdominal pain, acute, right upper quadrant 789.01 [facility] [address] [id number] [address] [place] [address] Mar, [facility] [address] [facility] [id number] [address] [place] [address] Mar, Nausea 787.02 and Abdominal pain, acute, right upper quadrant 789.01 [facility] [address] [facility] [id number] [address] [place] [address] Mar, Nausea 787.02 and Abdominal pain 789.00 [facility] [address] [facility] [id number] [address] [place] [address] Mar, Nausea 787.02 [facility] [address] [facility] [id number] [address] [place] [address] Jan, Amenorrhea 626.0 [facility] [address] [facility] [id number] [address] [place] [address] Jan, Amenorrhea 626.0 and Obesity 278.00 [facility] [address] [facility] [id number] [address] [place] [address] December, Amenorrhea 626.0 and Cough 7 86.2 [facility] [address] [facility] [id number] [address] [place] [address] Nov, [facility] [address] [facility] [id number] [address] [place] [address] Nov, [facility] [address] [id number] [address] [place] [address] May, [facility] [address] [id number] [address] [place] [address] May, [facility] [address] [facility] [id number] [address] [place] [address] Mar, [facility] [address] [facility] [id number] [address] [place] [address] Mar, [facility] [address] [id number] [facility] [place] [address] Mar, [facility] [address] [id number] [facility] [place] [address] Mar, [facility] [address] [id number] [facility] [place] [address] Mar, [facility] [address] [id number] [address] [place] [address], [place] [address] Mar, [facility] [address] [id number] [address] [place] [address], [place] [address] Mar, [facility] [address] [id number] [address] [place] [address], [place] [address] Mar, [facility] [address] [id number] [address] [place] [address], [place] [address] Mar, [facility] [address] [id number] [address] [place] [address], [place] [address] Mar, [facility] [address] [id number] [address] [place] [address], [place] [address] Mar, [facility] [address] [id number] [address] [place] [address], [place] [address] Mar, [facility] [address] [id number] [address] [place] [address], [place] [address] Mar, [facility] [address] [id number] [address] [place] [address], [place] [address] Mar, [facility] [address] [id number] [address] [place] [address], [place] [address] Mar, [facility] [address] [id number] [address] [place] [address], [place] [address] Feb, [facility] [address] [id number] [address] [place] [address], [place] [address] Feb, [facility] [address] [id number] [address] [place] [address], [place] [address] Feb, 2013 [facility] [address] [id number] [facility] [place] [address] Feb, 2013 [facility] [address] [id number] [address] [place] [address], [place] [address] Feb, [facility] [address] [id number] [address] [place] [address], [place] [address] Feb, [facility] [address] [id number] [address] [place] [address], [place] [address] Feb, [facility] [address] [id number] [address] [place] [address], [place] [address] Feb, [facility] [address] [id number] [address] [place] [address], [place] [address] Feb, [facility] [address] [id number] [address] [place] [address], [place] [address] Feb, [facility] [address] [id number] [address] [place] [address], [place] [address] Feb, 2013 [facility] [address] [id number] [address] [place] [address], [place] [address] Feb, [facility] [address] [id number] [address] [place] [address], [place] [address] Feb, [facility] [address] [id number] [address] [place] [address], [place] [address] Feb, [facility] [address] [id number] [address] [place] [address], [place] [address] Feb, [facility] [address] [id number] [address] [place] [address], [place] [address] Jan, [facility] [address] [id number] [address] [place] [address], [place] [address] Jan, [facility] [address] [id number] [address] [place] [address], [place] [address] Jan, [facility] [address] [id number] [facility] [place] [address] Jan, [facility] [address] [id number] [address] [place] [address], [place] [address] Jan, [facility] [address] [id number] [facility] [place] [address] Jan, [facility] [address] [id number] [address] [place] [address], [place] [address] Jan, [facility] [address] [id number] [address] [place] [address], [place] [address] Jan, [facility] [address] [id number] [address] [place] [address], [place] [address] Jan, [facility] [address] [id number] [address] [place] [address], [place] [address] Jan, [facility] [address] [id number] [address] [place] [address], [place] [address] Jan, [facility] [address] [id number] [address] [place] [address], [place] [address] Jan, [facility] [address] [id number] [address] [place] [address], [place] [address] Jan, [facility] [address] [id number] [address] [place] [address], [place] [address] December, [facility] [address] [id number] [address] [place] [address], [place] [address] December, [facility] [address] [id number] [address] [place] [address], [place] [address] December, [facility] [address] [id number] [address] [place] [address], [place] [address] December, [facility] [address] [id number] [address] [place] [address], [place] [address] December, [facility] [address] [id number] [address] [place] [address], [place] [address] December, [facility] [address] [id number] [facility] [place] [address] December, [facility] [address] [id number] [address] [place] [address], [place] [address] December, [facility] [address] [id number] [address] [place] [address], [place] [address] December, [facility] [address] [id number] [address] [place] [address], [place] [address] December, [facility] [address] [id number] [address] [place] [address], [place] [address] December, [facility] [address] [id number] [address] [place] [address], [place] [address] December, [facility] [address] [id number] [address] [place] [address], [place] [address] Nov, [facility] [address] [id number] [address] [place] [address], [place] [address] Nov, [facility] [address] [id number] [address] [place] [address], [place] [address] Oct, [facility] [address] [id number] [address] [place] [address], [place] [address] Oct, [facility] [address] [id number] [address] [place] [address], [place] [address] Oct, [facility] [address] [id number] [address] [place] [address], [place] [address] Oct, [facility] [address] [id number] [address] [place] [address], [place] [address] Oct, [facility] [address] [id number] [address] [place] [address], [place] [address] Oct, [facility] [address] [id number] [address] [place] [address], [place] [address] Oct, [facility] [address] [id number] [address] [place] [address], [place] [address] Oct, [facility] [address] [id number] [address] [place] [address], [place] [address] 18 Oct, 2013 [facility] [address] [id number] [address] [place] [address], [place] [address] 08 Oct, 2013 [facility] [address] [id number] [address] [place] [address], [place] [address] Oct, [facility] [address] [id number] [address] [place] [address], [place] [address] Oct, [facility] [address] [id number] [address] [place] [address], [place] [address] Oct, [facility] [address] [id number] [address] [place] [address], [place] [address] Oct, [facility] [address] [id number] [address] [place] [address], [place] [address] Oct, [facility] [address] [id number] [address] [place] [address], [place] [address] Oct, [facility] [address] [id number] [address] [place] [address], [place] [address] Oct, [facility] [address] [id number] [address] [place] [address], [place] [address] Sep, [facility] [address] [id number] [address] [place] [address], [place] [address] Sep, [facility] [address] [id number] [address] [place] [address], [place] [address] Sep, [facility] [address] [id number] [address] [place] [address], [place] [address] Jun, [facility] [address] [id number] [address] [place] [address], [place] [address] Jun, [facility] [address] [id number] [address] [place] [address], [place] [address] Jun, [facility] [address] [id number] [address] [place] [address], [place] [address] Jun, [facility] [address] [id number] [address] [place] [address], [place] [address] Jun, [facility] [address] [id number] [address] [place] [address], [place] [address] Jun, [facility] [address] [id number] [address] [place] [address], [place] [address] May, [facility] [address] [id number] [address] [place] [address], [place] [address] May, [facility] [address] [id number] [address] [place] [address], [place] [address] May, [facility] [address] [id number] [address] [place] [address], [place] [address] 15 May, 2013 [facility] [address] [id number] [address] [place] [address], [place] [address] 15 May, 2013 [facility] [address] [id number] [address] [place] [address], [place] [address] May, [facility] [address] [id number] [address] [place] [address], [place] [address] 26 Apr, 2013 [facility] [address] [id number] [address] [place] [address], [place] [address] 24 Apr, 2013 [facility] [address] [id number] [address] [place] [address], [place] [address] 23 Sep, 2012 [facility] [address] [id number] [address] [place] [address], [place] [address] 20 Sep, 2012 [facility] [address] [id number] [address] [place] [address], [place] [address] 19 Sep, 2012 [facility] [address] [id number] [address] [place] [address], [place] [address] 17 Sep, 2012 [facility] [address] [id number] [address] [place] [address], [place] [address] 13 Apr, 2013 [facility] [address] [id number] [address] [place] [address], [place] [address] 11 Apr, 2013 [facility] [address] [id number] [address] [place] [address], [place] [address] 09 Apr, 2013 [facility] [address] [id number] [address] [place] [address], [place] [address] 05 Apr, 2013 [facility] [address] [id number] [address] [place] [address], [place] [address] Mar, [facility] [address] [id number] [address] [place] [address], [place] [address] Nov, [facility] [address] [id number] [address] [place] [address], [place] [address] Oct, [facility] [address] [id number] [address] [place] [address], [place] [address] Oct, [facility] [address] [id number] [address] [place] [address], [place] [address] Sep, [facility] [address] [id number] [address] [place] [address], [place] [address] May, [facility] [address] [id number] [address] [place] [address], [place] [address] May, [facility] [address] [id number] [address] [place] [address], [place] [address] May, [facility] [address] [id number] [address] [place] [address], [place] [address] May, [facility] [address] [id number] [address] [place] [address], [place] [address] 24 Apr, 2012 [facility] [address] [id number] [address] [place] [address], [place] [address] 06 Apr, 2012 [facility] [address] [id number] [address] [place] [address], [place] [address] Mar, [facility] [address] [id number] [address] [place] [id number] Feb, [facility] [address] [id number] [address] [place] [id number] Jul, [facility] [address] [facility] [id number] [address] [place] [id number] Jul, [facility] [address] [facility] [id number] [address] [place] [id number] Jul, [facility] [address] [facility] [id number] [address] [place] [id number] December, [facility] [address] [facility] [id number] [address] [place] [id number] December, [facility] [address] [facility] [id number] [address] [place] [id number] Oct, IMMUNIZATIONS No Known Immunizations SOCIAL HISTORY Never Assessed REASON FOR VISIT Question PLAN OF CARE VITAL SIGNS MEDICATIONS Unknown [...]
--- OUTSIDE RECORDS SUMMARY | 2019-10-07 05:36 | XMS REPORT ---
Author Author [facility] Address [address] [place] [address] Care Team Providers Care Radiator Repairer Name Role Phone DOUGLAS LUND Unavailable PROBLEMS Type Condition ICD9-CM Code XFO44-CB Code Onset Dates Condition S tatus SNOMED Code Problem Hives L50.9 Active 521528105 Problem Desire for Z31.9 Active 912307541 Problem Iron deficiency anemia secondary to inadequate d ietary iron intake D50.8 Active 369458280 Problem Generalized anxiety disorder F41.1 A ctive 20796486 Problem Primary insomnia F51.01 Active 397 2004 Problem Amenorrhea N91.2 Active 58175516 Problem Unspecified mood [affective] disorder F39 Active [id number] ALLERGIES Substance Reaction Event Type Date Status Lamotrigine rash Drug Allergy Jul, Active Abigail Unknown Drug Allergy Jul, Active ENCOUNTERS Encounter Location Date Diagnosis [place] [id number] [address] [place] [id number] December, Abnormal MRI of head R93.0 [place] [id number] [address] [place] [address] December, Subcutaneous nodules R22.9 ; Syncope, unspecified syncope type R55 ; Abnormal MRI of head R93.0 and Iron deficiency anemia secondary to inadequate dietary iron intake D50.8 [place] [id number] [address] [place] [address] December, [place] [address] [place] [id number] [address] [place] [address] December, Iron deficiency anemia secon chuck to inadequate dietary iron intake D50.8 and BMI 40.0-44.9, adult Z68.41 [facility] [address] [place] [id number] [address] [place] [address] Nov, Gastroenteritis K52.9 [place] [id number] [address] Nov, [place] [address] [address] Nov, Bilateral hand swelling M79. 89 ; Amenorrhea N91.2 ; Desire for Z31.9 ; Amenorrhea, unspecified N91.2 ; Bilateral swelling of feet M79.89 ; Rash R21 and Iron deficiency anemia, unspecified iron deficiency anemia type D50.9 [place] [address] [address] Nov, Bilateral hand swelling M79. 89 ; Bilateral swelling of feet M79.89 and Rash R21 [place] [address] [address] Sep, Desire for Z31.9 a nd Amenorrhea N91.2 [facility] [address] [place] [id number] [address] [place] [address] Aug, Scabies B86 [place] [address] [place] [id number] [address] [place] [address] Aug, Amenorrhea, unspecified N91. 2 [place] [address] [place] [id number] [address] [place] [address] Aug, Amenorrhea, unspecified N91. 2 [place] [address] [place] [id number] [address] [place] [address] Aug, Amenorrhea N91.2 and Iron de ficiency anemia, unspecified iron deficiency anemia type D50.9 [place] [address] [place] [id number] [address] [place] [address] Aug, Iron deficiency anemia secon chuck to inadequate dietary iron intake D50.8 ; Amenorrhea N91.2 ; Generalized anxiety disorder F41.1 ; Unspecified mood [affective] disorder F39 and Nausea R11.0 [facility] [address] [facility] [id number] [address] [place] [address] Jul, Non-intractable vomiting wit h nausea, unspecified vomiting type R11.2 and Pleurisy R09.1 [facility] [address] [facility] [id number] [address] [place] [address] Jul, [facility] [address] [facility] [id number] [address] [place] [address] Jun, Unspecified mood [affective] disorder F39 [facility] [address] [facility] [id number] [address] [place] [address] Jun, Unspecified mood [affective] disorder F39 and Generalized anxiety disorder F41.1 [facility] [address] [facility] [id number] [address] [place] [address] May, Bilious vomiting with nausea R11.14 [facility] [address] [facility] [id number] [address] [place] [address] May, Unspecified mood [affective] disorder F39 ; Generalized anxiety disorder F41.1 and Iron deficiency anemia, unspecified iron deficiency anemia type D50.9 [facility] [address] [facility] [id number] [address] [place] [address] Apr, Unspecified mood [affective] disorder F39 [facility] [address] [facility] [id number] [address] [place] [address] Apr, Iron deficiency anemia, unsp ecified iron deficiency anemia type D50.9 [facility] [address] [facility] [id number] [address] [place] [address] Apr, Iron deficiency anemia, unsp ecified iron deficiency anemia type D50.9 [facility] [address] [facility] [id number] [address] [place] [address] 18 Apr, 2017 Unspecified mood [affective] disorder F39 [facility] [address] [facility] [id number] [address] [place] [address] Apr, Abnormal CBC R79.89 [facility] [address] [facility] [id number] [address] [place] [address] Apr, Abnormal CBC R79.89 [facility] [address] [facility] [id number] [address] [place] [address] 05 Apr, 2017 Encounter to establish care with new doctor Z76.89 ; Unspecified mood [affective] disorder F39 and Primary insomnia F51.01 [facility] [address] [facility] [id number] [address] [place] [address] Mar, Unspecified mood [affective] disorder F39 and Generalized anxiety disorder F41.1 [facility] [address] [place] [id number] [place] [phone] Mar, Sore throat J02.9 and Strep pharyngitis J02.0 [facility] [id number] [place] [id number] Feb, Dental examination Z01.20 [facility] [address] [place] [id number] [place] [id number] Jan, Encounter for dental examina tion Z01.20 [facility] [address] [place] [id number] [address] [place] [address] Nov, Fever, unspecified R50.9 and Acute nasopharyngitis J00 [facility] [address] [place] [id number] [address] [place] [address] 18 Sep, 2015 Abdominal pain, acute, right upper quadrant 789.01 [facility] [address] [place] [id number] [address] [place] [address] Sep, [facility] [address] [place] [id number] [address] [place] [address] Aug, Irritable bowel syndrome wit h diarrhea K58.0 [facility] [address] [place] [id number] [address] [place] [address] Aug, Urinary tract infection, sit e not specified N39.0 and Back pain M54.9 [facility] [address] [facility] [id number] [address] [place] [address] Mar, Abdominal pain, acute, right upper quadrant 789.01 [facility] [address] [place] [id number] [address] [place] [address] Mar, [facility] [address] [place] [id number] [address] [place] [address] Mar, Nausea 787.02 and Abdominal pain, acute, right upper quadrant 789.01 [facility] [address] [place] [id number] [address] [place] [address] Mar, Nausea 787.02 and Abdominal pain 789.00 [facility] [address] [place] [id number] [place] [address] Mar, Nausea 787.02 [facility] [address] [address] Jan, Amenorrhea 626.0 [facility] [address] [place] [id number] [place] [address] Jan, Amenorrhea 626.0 and Obesity 278.00 [facility] [address] [place] [id number] [place] [address] December, Amenorrhea 626.0 and Cough 7 86.2 [facility] [address] [place] [id number] [address] [place] [address] Nov, [facility] [address] [place] [id number] [address] [place] [address] Nov, [facility] [address] [place] [id number] [address] [place] [address] May, [facility] [address] [place] [id number] [address] [place] [address] May, [facility] [address] [place] [id number] [address] [place] [address] Mar, [facility] [address] [id number] [facility] [place] [address] Mar, [facility] [address] [id number] [facility] [place] [address] Mar, [facility] [address] [id number] [facility] [place] [address] Mar, [facility] [address] [id number] [address] [place] [address], [place] [address] Mar, [facility] [address] [id number] [address] [place] [address], [place] [address] Mar, [facility] [address] [id number] [address] [place] [address], [place] [address] Mar, [facility] [address] [id number] [address] [place] [address], [place] [address] Mar, [facility] [address] [id number] [address] [place] [address], [place] [address] Mar, [facility] [address] [id number] [address] [place] [address], [place] [address] Mar, [facility] [address] [id number] [address] [place] [address], [place] [address] Mar, [facility] [address] [id number] [address] [place] [address], [place] [address] Mar, [facility] [address] [id number] [address] [place] [address], [place] [address] Mar, [facility] [address] [id number] [address] [place] [address], [place] [address] Mar, [facility] [address] [id number] [address] [place] [address], [place] [address] Mar, [facility] [address] [id number] [address] [place] [address], [place] [address] Feb, [facility] [address] [id number] [address] [place] [address], [place] [address] Feb, 2013 [facility] [address] [id number] [address] [place] [address], [place] [address] Feb, 2013 [facility] [address] [id number] [address] [place] [address], [place] [address] Feb, [facility] [address] [id number] [address] [place] [address], [place] [address] Feb, 2013 [facility] [address] [id number] [address] [place] [address], [place] [address] Feb, 2013 [facility] [address] [id number] [address] [place] [address], [place] [address] Feb, [facility] [address] [id number] [address] [place] [address], [place] [address] Feb, [facility] [address] [id number] [address] [place] [address], [place] [address] Feb, [facility] [address] [id number] [address] [place] [address], [place] [address] Feb, [facility] [address] [id number] [address] [place] [address], [place] [address] Feb, [facility] [address] [id number] [address] [place] [address], [place] [address] Feb, [facility] [address] [id number] [address] [place] [address], [place] [address] Feb, [facility] [address] [id number] [address] [place] [address], [place] [address] Feb, [facility] [address] [id number] [address] [place] [address], [place] [address] Feb, [facility] [address] [id number] [address] [place] [address], [place] [address] Jan, [facility] [address] [id number] [address] [place] [address], [place] [address] Jan, [facility] [address] [id number] [facility] [place] [address] Jan, [facility] [address] [id number] [facility] [place] [address] Jan, [facility] [address] [id number] [facility] [place] [address] Jan, [facility] [address] [id number] [address] [place] [address], [place] [address] Jan, [facility] [address] [id number] [address] [place] [address], [place] [address] Jan, [facility] [address] [id number] [address] [place] [address], [place] [address] Jan, [facility] [address] [id number] [address] [place] [address], [place] [address] Jan, [facility] [address] [id number] [address] [place] [address], [place] [address] Jan, [facility] [address] [id number] [address] [place] [address], [place] [address] Jan, [facility] [address] [id number] [address] [place] [address], [place] [address] Jan, [facility] [address] [id number] [address] [place] [address], [place] [address] Jan, [facility] [address] [id number] [address] [place] [address], [place] [address] December, [facility] [address] [id number] [address] [place] [address], [place] [address] December, [facility] [address] [id number] [address] [place] [address], [place] [address] December, [facility] [address] [id number] [address] [place] [address], [place] [address] December, [facility] [address] [id number] [address] [place] [address], [place] [address] December, [facility] [address] [id number] [address] [place] [address], [place] [address] December, [facility] [address] [id number] [address] [place] [address], [place] [address] December, [facility] [address] [id number] [address] [place] [address], [place] [address] December, [facility] [address] [id number] [address] [place] [address], [place] [address] December, [facility] [address] [id number] [address] [place] [address], [place] [address] December, [facility] [address] [id number] [address] [place] [address], [place] [address] December, [facility] [address] [id number] [address] [place] [address], [place] [address] December, [facility] [address] [id number] [address] [place] [address], [place] [address] Nov, [facility] [address] [id number] [address] [place] [address], [place] [address] Nov, [facility] [address] [id number] [address] [place] [address], [place] [address] Oct, [facility] [address] [id number] [address] [place] [address], [place] [address] Oct, [facility] [address] [id number] [address] [place] [address], [place] [address] Oct, [facility] [address] [id number] [address] [place] [address], [place] [address] Oct, [facility] [address] [id number] [address] [place] [address], [place] [address] Oct, [facility] [address] [id number] [address] [place] [address], [place] [address] Oct, [facility] [address] [id number] [address] [place] [address], [place] [address] Oct, [facility] [address] [id number] [address] [place] [address], [place] [address] Oct, [facility] [address] [id number] [address] [place] [address], [place] [address] 18 Oct, 2013 [facility] [address] [id number] [address] [place] [address], [place] [address] 08 Oct, 2013 [facility] [address] [id number] [address] [place] [address], [place] [address] 07 Oct, 2013 [facility] [address] [id number] [address] [place] [address], [place] [address] 06 Oct, 2013 [facility] [address] [id number] [address] [place] [address], [place] [address] 06 Oct, 2013 [facility] [address] [id number] [address] [place] [address], [place] [address] 05 Oct, 2013 [facility] [address] [id number] [address] [place] [address], [place] [address] 05 Oct, 2013 [facility] [address] [id number] [address] [place] [address], [place] [address] 05 Oct, 2013 [facility] [address] [id number] [address] [place] [address], [place] [address] Oct, [facility] [address] [id number] [address] [place] [address], [place] [address] Sep, [facility] [address] [id number] [address] [place] [address], [place] [address] Sep, [facility] [address] [id number] [address] [place] [address], [place] [address] Sep, [facility] [address] [id number] [address] [place] [address], [place] [address] Jun, [facility] [address] [id number] [address] [place] [address], [place] [address] Jun, [facility] [address] [id number] [address] [place] [address], [place] [address] Jun, [facility] [address] [id number] [address] [place] [address], [place] [address] Jun, [facility] [address] [id number] [address] [place] [address], [place] [address] Jun, [facility] [address] [id number] [address] [place] [address], [place] [address] Jun, [facility] [address] [id number] [address] [place] [address], [place] [address] May, [facility] [address] [id number] [address] [place] [address], [place] [address] May, [facility] [address] [id number] [address] [place] [address], [place] [address] May, [facility] [address] [id number] [address] [place] [address], [place] [address] May, [facility] [address] [id number] [address] [place] [address], [place] [address] May, [facility] [address] [id number] [address] [place] [address], [place] [address] May, [facility] [address] [id number] [address] [place] [address], [place] [address] 26 Apr, 2013 [facility] [address] [id number] [address] [place] [address], [place] [address] 24 Apr, 2013 [facility] [address] [id number] [address] [place] [address], [place] [address] 23 Apr, 2013 [facility] [address] [id number] [address] [place] [address], [place] [address] 20 Apr, 2013 [facility] [address] [id number] [address] [place] [address], [place] [address] 19 Apr, 2012 [facility] [address] [id number] [address] [place] [address], [place] [address] 17 Apr, 2013 [facility] [address] [id number] [address] [place] [address], [place] [address] 13 Apr, 2012 [facility] [address] [id number] [address] [place] [address], [place] [address] 11 Apr, 2013 [facility] [address] [id number] [address] [place] [address], [place] [address] 09 Apr, 2013 [facility] [address] [id number] [address] [place] [address], [place] [id number] 05 Apr, 2013 [facility] [address] [id number] [address] [place] [address], [place] [id number] Mar, [facility] [address] [id number] [address] [place] [address], [place] [id number] Nov, [facility] [address] [id number] [address] [place] [address], [place] [id number] Oct, [facility] [address] [id number] [address] [place] [address], [place] [id number] Oct, [facility] [address] [id number] [address] [place] [address], [place] [id number] Sep, [facility] [address] [id number] [address] [place] [address], [place] [id number] May, [facility] [address] [id number] [address] [place] [address], [place] [id number] May, [facility] [address] [id number] [address] [place] [address], [place] [id number] May, [facility] [address] [id number] [address] [place] [address], [place] [id number] May, [facility] [address] [id number] [address] [place] [address], [place] [id number] 24 Apr, 2012 [facility] [address] [id number] [address] [place] [address], [place] [id number] 06 Apr, 2012 [facility] [address] [id number] [address] [place] [id number] Mar, [facility] [address] [id number] [address] [place] [id number] Feb, [facility] [address] [id number] [address] [place] [id number] Jul, [facility] [address] [id number] [address] [place] [id number] Jul, [facility] [address] [id number] [address] [place] [id number] Jul, [facility] [address] [id number] [address] [place] [id number] December, [facility] [address] [id number] [address] [place] [id number] December, [facility] [address] [facility] [id number] [address] [place] [id number] Oct, IMMUNIZATIONS No Known Immunizations SOCIAL HISTORY Never Assessed REASON FOR VISIT Vomiting a few times this morning and it hurts to take a deep breath Derrick PLAN OF CARE Activity Details Follow Up 2 Weeks Reason: VITAL SIGNS Height 68 in 2017-08-09 Weight 252.2 lbs 2017-08-09 Temperature 97.9 degrees Fahrenheit 2017-08-09 Heart Rate 80 bpm 2017-08-09 Respiratory Rate 20 2017-08-09 BMI 38.34 kg/m2 2017-08-09 Blood pressure systolic 110 mmHg 2017-08-09 Blood pressure diastolic 76 mmHg 2017-08-09 MEDICATIONS Medication Instructions Dosage Frequency Start Date End Date Duration S tatus Abilify 10 mg Orally Once a day 1 tablet 24h Jun, 30 day(s) Active Zofran ODT 4 MG Orally every 8 hrs 1 tablet on the tongue and al low to dissolve 8h Jul, 10 days Active Pantoprazole Sodium 20 mg Orally Once a day 1 tablet 24h May 30 day(s) Not-Taking Zofran 4 MG Orally Once a day 2 tablets 24h May, 30 day(s) Not-Taking Ferrous Sulfate 325 (65 Fe) MG Orally twice a day 1 tablet 12h 21 Se p, 2017 Not-Taking RESULTS Name Result Date Reference Range TEST, URINE (IN HOUSE) 2017-08-09 RESULTS negative Lot # [id number] Control + Exp date 2018-10-17 PROCEDURES Procedure Date Ordered Result Body Site URINE TEST Aug 09, 2017 INSTRUCTIONS MEDICATIONS ADMINISTERED No Known Medications MEDICAL (GENERAL) HISTORY Type Description Date Medical History anemia Medical History asthma Surgical History section x2 Surgical History hernia repair Hospitalization History surgeries Hospitalization History possible gallbladder problems Hospitalization History ER visit for UTI 09/12/15 Hospitalization History dizziness, blackout 12/28/2017
--- OUTSIDE RECORDS SUMMARY | 2019-10-07 05:36 | XMS REPORT ---
Author Author Jailene THOMAS Organization [facility] Address [address] [place] [address] Care Team Providers Care Chief Supply Chain Officer Name Role Phone WILLIAM MARIANA Unavailable PROBLEMS Type Condition ICD9-CM Code [id number] Code Onset Dates Condition S tatus SNOMED Code Problem Hives L50.9 Active 972483273 Problem Desire for Z31.9 Active 529487594 Problem Iron deficiency anemia secondary to inadequate d ietary iron intake D50.8 Active 164710918 Problem Generalized anxiety disorder F41.1 A ctive 25349124 Problem Primary insomnia F51.01 Active 397 2004 Problem Amenorrhea N91.2 Active 36340086 Problem Unspecified mood [affective] disorder F39 Active 45964157 ALLERGIES Substance Reaction Event Type Date Status Lamotrigine rash Drug Allergy Sep, Active Abigail Unknown Drug Allergy Sep, Active ENCOUNTERS Encounter Location Date Diagnosis [facility] [address] [id number] [address] [place] [address] Jan, Sore throat J02.9 ; Strep th roat J02.0 ; BMI 40.0-44.9, adult Z68.41 ; Dysuria R30.0 and Acute cystitis with hematuria N30.01 [facility] [address] [facility] [id number] [address] [place] [address] Jan, [facility] [address] [id number] [address] [place] [address] December, Abnormal MRI of head R93.0 [facility] [address] [id number] [address] [place] [address] December, Subcutaneous nodules R22.9 ; Syncope, unspecified syncope type R55 ; Abnormal MRI of head R93.0 and Iron deficiency anemia secondary to inadequate dietary iron intake D50.8 [facility] [address] [facility] [id number] [address] [place] [address] December, [place] [address] [id number] [address] [place] [address] December, Iron deficiency anemia secon chuck to inadequate dietary iron intake D50.8 and BMI 40.0-44.9, adult Z68.41 [facility] [address] [id number] [address] [place] [address] Nov, Gastroenteritis K52.9 [place] [id number] [place] [address] Nov, [place] [address] [address] Nov, Bilateral hand swelling M79. 89 ; Amenorrhea N91.2 ; Desire for Z31.9 ; Amenorrhea, unspecified N91.2 ; Bilateral swelling of feet M79.89 ; Rash R21 and Iron deficiency anemia, unspecified iron deficiency anemia type D50.9 [place] [address] [place] [address] Nov, Bilateral hand swelling M79. 89 ; Bilateral swelling of feet M79.89 and Rash R21 [place] [address] [id number] [address] [place] [address] Sep, Desire for Z31.9 a nd Amenorrhea N91.2 [facility] [address] [id number] [address] [place] [address] Aug, Scabies B86 [place] [address] [id number] [address] [place] [address] Aug, Amenorrhea, unspecified N91. 2 [place] [address] [id number] [address] [place] [address] Aug, Amenorrhea, unspecified N91. 2 [place] [address] [place] [address] 08 Aug, 2017 Amenorrhea N91.2 and Iron de ficiency anemia, unspecified iron deficiency anemia type D50.9 [place] [address] [address] Aug, Iron deficiency anemia secon chuck to inadequate dietary iron intake D50.8 ; Amenorrhea N91.2 ; Generalized anxiety disorder F41.1 ; Unspecified mood [affective] disorder F39 and Nausea R11.0 [facility] [address] [facility] [id number] [address] [place] [address] Jul, Non-intractable vomiting wit h nausea, unspecified vomiting type R11.2 and Pleurisy R09.1 [place] [address] [id number] [address] [place] [address] Jul, [place] [address] [address] Jun, Unspecified mood [affective] disorder F39 [place] [address] [address] 02 Jun, 2017 Unspecified mood [affective] disorder F39 and Generalized anxiety disorder F41.1 [place] [address] [id number] [place] [address] 06 May, 2017 Bilious vomiting with nausea R11.14 [place] [address] [address] May, Unspecified mood [affective] disorder F39 ; Generalized anxiety disorder F41.1 and Iron deficiency anemia, unspecified iron deficiency anemia type D50.9 [place] [address] [id number] [place] [address] Apr, Unspecified mood [affective] disorder F39 [place] [address] [id number] [address] [place] [address] Apr, Iron deficiency anemia, unsp ecified iron deficiency anemia type D50.9 [place] [address] [id number] [address] [place] [address] Apr, Iron deficiency anemia, unsp ecified iron deficiency anemia type D50.9 [facility] [address] [facility] [id number] [address] [place] [address] Apr, Unspecified mood [affective] disorder F39 [facility] [address] [place] [address] Apr, Abnormal CBC R79.89 [facility] [address] [facility] [id number] [address] [place] [address] Apr, Abnormal CBC R79.89 [place] [address] [address] 05 Apr, 2017 Encounter to establish care with new doctor Z76.89 ; Unspecified mood [affective] disorder F39 and Primary insomnia F51.01 [facility] [address] [id number] [address] [place] [address] Mar, Unspecified mood [affective] disorder F39 and Generalized anxiety disorder F41.1 [facility] [address] [id number] [address] [place] [address] Mar, Sore throat J02.9 and Strep pharyngitis J02.0 [facility] [address] [place] [id number] Feb, Dental examination Z01.20 [facility] [id number] [place] [id number] Jan, Encounter for dental examina tion Z01.20 [facility] [address] [id number] [address] [place] [address] Nov, Fever, unspecified R50.9 and Acute nasopharyngitis J00 [facility] [address] [id number] [address] [place] [address] 18 Sep, 2015 Abdominal pain, acute, right upper quadrant 789.01 [facility] [address] [id number] [address] [place] [address] 10 Sep, 2015 [facility] [address] [id number] [address] [place] [address] Aug, Irritable bowel syndrome wit h diarrhea K58.0 [facility] [address] [id number] [address] [place] [address] Aug, Urinary tract infection, sit e not specified N39.0 and Back pain M54.9 [facility] [address] [id number] [address] [place] [address] Mar, Abdominal pain, acute, right upper quadrant 789.01 [place] [address] [address] Mar, [place] [address] [address] Mar, Nausea 787.02 and Abdominal pain, acute, right upper quadrant 789.01 [facility] [address] [id number] [place] [address] Mar, Nausea 787.02 and Abdominal pain 789.00 [place] [address] [id number] [place] [address] Mar, Nausea 787.02 [place] [address] [id number] [place] [address] Jan, Amenorrhea 626.0 [place] [id number] [place] [address] Jan, Amenorrhea 626.0 and Obesity 278.00 [place] [id number] [place] [address] December, Amenorrhea 626.0 and Cough 7 86.2 [facility] [id number] [place] [address] Nov, [facility] [address] [address] Nov, [facility] [address] [id number] [address] [place] [address], [place] [address] May, [facility] [address] [id number] [address] [place] [address], [place] [address] May, [facility] [address] [id number] [address] [place] [address], [place] [address] Mar, [facility] [address] [id number] [address] [place] [address], [place] [address] Mar, [facility] [address] [id number] [address] [place] [address], [place] [address] Mar, [facility] [address] [id number] [address] [place] [address], [place] [address] Mar, [facility] [address] [id number] [address] [place] [address], [place] [address] Mar, [facility] [address] [id number] [address] [place] [address], [place] [address] Mar, [facility] [address] [id number] [address] [place] [address], [place] [address] Mar, [facility] [address] [id number] [address] [place] [address], [place] [address] Mar, [facility] [address] [id number] [address] [place] [address], [place] [address] Mar, [facility] [address] [id number] [address] [place] [address], [place] [address] Mar, [facility] [address] [id number] [address] [place] [address], [place] [address] Mar, [facility] [address] [id number] [address] [place] [address], [place] [address] Mar, [facility] [address] [id number] [address] [place] [address], [place] [address] Mar, [facility] [address] [id number] [facility] [place] [address] Mar, [facility] [address] [id number] [address] [place] [address], [place] [address] Mar, [facility] [address] [id number] [address] [place] [address], [place] [address] Feb, [facility] [address] [id number] [address] [place] [address], [place] [address] Feb, 2013 [facility] [address] [id number] [address] [place] [address], [place] [address] Feb, [facility] [address] [id number] [address] [place] [address], [place] [address] Feb, [facility] [address] [id number] [address] [place] [address], [place] [address] Feb, [facility] [address] [id number] [address] [place] [address], [place] [address] Feb, [facility] [address] [id number] [address] [place] [address], [place] [address] Feb, [facility] [address] [id number] [address] [place] [address], [place] [address] Feb, [facility] [address] [id number] [address] [place] [address], [place] [address] Feb, [facility] [address] [id number] [address] [place] [address], [place] [address] Feb, [facility] [address] [id number] [address] [place] [address], [place] [address] Feb, [facility] [address] [id number] [address] [place] [address], [place] [address] Feb, [facility] [address] [id number] [address] [place] [address], [place] [address] Feb, [facility] [address] [id number] [address] [place] [address], [place] [address] Feb, [facility] [address] [id number] [facility] [place] [address] Feb, [facility] [address] [id number] [address] [place] [address], [place] [address] Jan, [facility] [address] [id number] [address] [place] [address], [place] [address] Jan, [facility] [address] [id number] [address] [place] [address], [place] [address] Jan, [facility] [address] [id number] [address] [place] [address], [place] [address] Jan, [facility] [address] [id number] [address] [place] [address], [place] [address] Jan, [facility] [address] [id number] [address] [place] [address], [place] [address] Jan, [facility] [address] [id number] [address] [place] [address], [place] [address] Jan, [facility] [address] [id number] [address] [place] [address], [place] [address] Jan, [facility] [address] [id number] [address] [place] [address], [place] [address] Jan, [facility] [address] [id number] [address] [place] [address], [place] [address] Jan, [facility] [address] [id number] [address] [place] [address], [place] [address] Jan, [facility] [address] [id number] [address] [place] [address], [place] [address] Jan, [facility] [address] [id number] [address] [place] [address], [place] [address] Jan, [facility] [address] [id number] [address] [place] [address], [place] [address] December, [facility] [address] [id number] [address] [place] [address], [place] [address] December, [facility] [address] [id number] [address] [place] [address], [place] [address] December, [facility] [address] [id number] [address] [place] [address], [place] [address] December, [facility] [address] [id number] [address] [place] [address], [place] [address] December, [facility] [address] [id number] [address] [place] [address], [place] [address] December, [facility] [address] [id number] [address] [place] [address], [place] [address] December, [facility] [address] [id number] [address] [place] [address], [place] [address] December, [facility] [address] [id number] [address] [place] [address], [place] [address] December, [facility] [address] [id number] [address] [place] [address], [place] [address] December, [facility] [address] [id number] [address] [place] [address], [place] [address] December, [facility] [address] [id number] [address] [place] [address], [place] [address] December, [facility] [address] [id number] [address] [place] [address], [place] [address] Nov, [facility] [address] [id number] [address] [place] [address], [place] [address] Nov, [facility] [address] [id number] [address] [place] [address], [place] [address] Oct, [facility] [address] [id number] [address] [place] [address], [place] [address] Oct, [facility] [address] [id number] [address] [place] [address], [place] [address] Oct, [facility] [address] [id number] [facility] [place] [address] 20 Oct, 2013 [facility] [address] [id number] [facility] [place] [address] 19 Oct, 2013 [facility] [address] [id number] [facility] [place] [address] 19 Oct, 2013 [facility] [address] [id number] [facility] [place] [address] 19 Oct, 2013 [facility] [address] [id number] [facility] [place] [address] 19 Oct, 2013 [facility] [address] [id number] [address] [place] [address], [place] [address] 18 Oct, 2013 [facility] [address] [id number] [address] [place] [address], [place] [address] 08 Oct, 2013 [facility] [address] [id number] [address] [place] [address], [place] [address] 07 Oct, 2013 [facility] [address] [id number] [address] [place] [address], [place] [address] 06 Oct, 2013 [facility] [address] [id number] [address] [place] [address], [place] [address] 06 Oct, 2013 [facility] [address] [id number] [address] [place] [address], [place] [address] 05 Oct, 2013 [facility] [address] [id number] [address] [place] [address], [place] [address] 05 Oct, 2013 [facility] [address] [id number] [address] [place] [address], [place] [address] 05 Oct, 2013 [facility] [address] [id number] [address] [place] [address], [place] [address] 05 Oct, 2013 [facility] [address] [id number] [address] [place] [address], [place] [address] 28 Sep, 2013 [facility] [address] [id number] [address] [address] Sep, [facility] [address] [id number] [address] [place] [address], [place] [address] Sep, [facility] [address] [id number] [address] [place] [address] Jun, [facility] [address] [id number] [address] [place] [address], [place] [address] Jun, [facility] [address] [id number] [address] [place] [address] Jun, [facility] [address] [id number] [address] [place] [address], [place] [address] Jun, [facility] [address] [id number] [address] [place] [address], [place] [address] Jun, [facility] [address] [id number] [address] [place] [address] Jun, [facility] [address] [id number] [address] [place] [address] May, [facility] [address] [id number] [address] [place] [address] May, [facility] [address] [id number] [address] [place] [address], [place] [address] May, [facility] [address] [id number] [address] [place] [address] May, [facility] [address] [id number] [address] [place] [address] May, [facility] [address] [id number] [address] [place] [address] May, [facility] [address] [id number] [address] [place] [address] Apr, [facility] [address] [id number] [address] [place] [address] 24 Apr, 2013 [facility] [address] [id number] [address] [place] [address], [place] [address] 23 Sep, 2012 [facility] [address] [id number] [address] [place] [address], [place] [address] 20 Sep, 2012 [facility] [address] [id number] [address] [place] [address], [place] [address] 19 Sep, 2012 [facility] [address] [id number] [address] [place] [address], [place] [address] 17 Sep, 2012 [facility] [address] [id number] [address] [place] [address], [place] [address] 13 Apr, 2012 [facility] [address] [id number] [address] [place] [address], [place] [address] 11 Apr, 2012 [facility] [address] [id number] [address] [place] [address], [place] [address] 09 Apr, 2012 [facility] [address] [id number] [address] [place] [address], [place] [id number] 05 Apr, 2012 [facility] [address] [id number] [address] [place] [address], [place] [address] 26 Mar, 2013 [facility] [address] [id number] [address] [place] [address], [place] [address] 02 Nov, 2012 [facility] [address] [id number] [address] [place] [address], [place] [address] Oct, [facility] [address] [id number] [address] [place] [address], [place] [address] Oct, [facility] [address] [id number] [address] [place] [address], [place] [address] Sep, [facility] [address] [id number] [address] [place] [address], [place] [address] May, [facility] [address] [id number] [address] [place] [address], [place] [address] May, [facility] [address] [id number] [address] [place] [address], [place] [address] May, [facility] [address] [id number] [address] [place] [phone] May, [facility] [address] [id number] [address] [place] [phone] Apr, [facility] [address] [id number] [address] [place] [phone] Apr, [facility] [address] [id number] [address] [place] [phone] Mar, [facility] [address] [id number] [address] [place] [phone] Feb, [facility] [address] [id number] [address] [place] [phone] Jul, [facility] [address] [id number] [address] [place] [phone] Jul, [facility] [address] [id number] [address] [place] [id number] Jul, [facility] [address] [id number] [address] [place] [phone] December, [facility] [address] [id number] [address] [place] [phone] December, [facility] [address] [id number] [address] [place] [phone] Oct, IMMUNIZATIONS No Known Immunizations SOCIAL HISTORY Never Assessed REASON FOR VISIT Lower Abdominal pain--tjanssenMA, --feels as if it is period cramping but worse. Started last night and has not went away. , --no period since March, normall y she is very regular., --negative tests PLAN OF CARE Activity Details Follow Up prn and regular fu with pcp Reason: VITAL SIGNS Height 68 in 2017-09-25 Weight 252.8 lbs 2017-09-25 Temperature 97.3 degrees Fahrenheit 2017-09-25 Heart Rate 78 bpm 2017-09-25 Respiratory Rate 20 2017-09-25 BMI 38.43 kg/m2 2017-09-25 Blood pressure systolic 108 mmHg 2017-09-25 Blood pressure diastolic 70 mmHg 2017-09-25 MEDICATIONS Medication Instructions Dosage Frequency Start Date End Date Duration S edson Ferrous Sulfate 325 (65 Fe) MG Orally twice a day 1 tablet 12h Apr, 30 days Active BusPIRone HCl 7.5 MG Orally 3 times a day 1 tablet 8h 04 Aug, 2017 14 days Active Abilify 10 mg Orally Once a day 1 tablet 24h Jun, 90 days Active RESULTS Name Result Date Reference Range TEST, URINE (IN HOUSE) 2017-09-25 RESULTS negative Lot # [id number] Control + Exp date 03/19/19 PROCEDURES Procedure Date Ordered Result Body Site URINE TEST Sep 25, 2017 INSTRUCTIONS MEDICATIONS ADMINISTERED No Known Medications MEDICAL (GENERAL) HISTORY Type Description Date Medical History anemia Medical History asthma Surgical History section x2 Surgical History hernia repair Hospitalization History surgeries Hospitalization History possible gallbladder problems Hospitalization History ER visit for UTI 09/12/15 Hospitalization History dizziness, blackout 12/28/2017
--- OUTSIDE RECORDS SUMMARY | 2019-10-07 05:36 | XMS REPORT ---
Author Author Jailene ALVES Organization [facility] Address [address] [place] [address] Care Team Providers Care [employer] Team Member Name Role Phone JOSELYNWANDARYL Unavailable PROBLEMS Type Condition ICD9-CM Code [id number] Code Onset Dates Condition S tatus SNOMED Code Problem Hives L50.9 Active 267230442 Problem Desire for Z31.9 Active 601509160 Problem Iron deficiency anemia secondary to inadequate d ietary iron intake D50.8 Active 744099283 Problem Generalized anxiety disorder F41.1 A ctive 28746782 Problem Primary insomnia F51.01 Active 397 2004 Problem Amenorrhea N91.2 Active 50530753 Problem Unspecified mood [affective] disorder F39 Active 44608939 ALLERGIES Substance Reaction Event Type Date Status Lamotrigine rash Drug Allergy Aug, Active Abigail Unknown Drug Allergy Aug, Active ENCOUNTERS Encounter Location Date Diagnosis [place] [address] [place] [id number] [address] [place] [address] Jan, [place] [address] [place] [id number] [address] [place] [address] December, Abnormal MRI of head R93.0 [place] [address] [place] [id number] [address] [place] [address] December, Subcutaneous nodules R22.9 ; Syncope, unspecified syncope type R55 ; Abnormal MRI of head R93.0 and Iron deficiency anemia secondary to inadequate dietary iron intake D50.8 [place] [address] [facility] [id number] [address] [place] [address] December, [place] [address] [place] [id number] [address] [place] [address] December, Iron deficiency anemia secon chuck to inadequate dietary iron intake D50.8 and BMI 40.0-44.9, adult Z68.41 [facility] [address] [address] Nov, Gastroenteritis K52.9 [facility] [address] [address] Nov, [place] [address] [address] Nov, Bilateral hand swelling M79. 89 ; Amenorrhea N91.2 ; Desire for Z31.9 ; Amenorrhea, unspecified N91.2 ; Bilateral swelling of feet M79.89 ; Rash R21 and Iron deficiency anemia, unspecified iron deficiency anemia type D50.9 [place] [address] [address] Nov, Bilateral hand swelling M79. 89 ; Bilateral swelling of feet M79.89 and Rash R21 [place] [address] [address] Sep, Desire for Z31.9 a nd Amenorrhea N91.2 [facility] [address] [address] Aug, Scabies B86 [place] [address] [address] Aug, Amenorrhea, unspecified N91. 2 [place] [address] [address] Aug, Amenorrhea, unspecified N91. 2 [place] [address] [address] Aug, Amenorrhea N91.2 and Iron de ficiency anemia, unspecified iron deficiency anemia type D50.9 [place] [address] [place] [id number] [address] [place] [address] Aug, Iron deficiency anemia secon chuck to inadequate dietary iron intake D50.8 ; Amenorrhea N91.2 ; Generalized anxiety disorder F41.1 ; Unspecified mood [affective] disorder F39 and Nausea R11.0 [facility] [address] [facility] [id number] [address] [place] [address] Jul, Non-intractable vomiting wit h nausea, unspecified vomiting type R11.2 and Pleurisy R09.1 [facility] [address] [place] [id number] [address] [place] [address] Jul, [facility] [address] [facility] [id number] [address] [place] [address] Jun, Unspecified mood [affective] disorder F39 [place] [address] [place] [id number] [address] [place] [address] Jun, Unspecified mood [affective] disorder F39 and Generalized anxiety disorder F41.1 [facility] [address] [place] [id number] [address] [place] [address] May, Bilious vomiting with nausea R11.14 [facility] [address] [place] [id number] [address] [place] [address] May, Unspecified mood [affective] disorder F39 ; Generalized anxiety disorder F41.1 and Iron deficiency anemia, unspecified iron deficiency anemia type D50.9 [facility] [address] [place] [id number] [address] [place] [address] Apr, Unspecified mood [affective] disorder F39 [facility] [address] [place] [id number] [address] [place] [address] Apr, Iron deficiency anemia, unsp ecified iron deficiency anemia type D50.9 [place] [address] [facility] [id number] [address] [place] [address] Apr, Iron deficiency anemia, unsp ecified iron deficiency anemia type D50.9 [facility] [address] [place] [id number] [address] [place] [address] Apr, Unspecified mood [affective] disorder F39 [place] [address] [facility] [id number] [address] [place] [address] 07 Apr, 2017 Abnormal CBC R79.89 [facility] [address] [facility] [id number] [address] [place] [address] 07 Apr, 2017 Abnormal CBC R79.89 [facility] [address] [place] [id number] [address] [place] [address] 05 Apr, 2017 Encounter to establish care with new doctor Z76.89 ; Unspecified mood [affective] disorder F39 and Primary insomnia F51.01 [facility] [address] [facility] [id number] [address] [place] [address] Mar, Unspecified mood [affective] disorder F39 and Generalized anxiety disorder F41.1 [facility] [address] [facility] [id number] [address] [place] [address] Mar, Sore throat J02.9 and Strep pharyngitis J02.0 [facility] [id number] [place] [id number] Feb, Dental examination Z01.20 [facility] [address] [id number] Jan, Encounter for dental examina tion Z01.20 [facility] [address] [place] [id number] [address] [place] [address] Nov, Fever, unspecified R50.9 and Acute nasopharyngitis J00 [facility] [address] [place] [id number] [address] [place] [address] 18 Sep, 2015 Abdominal pain, acute, right upper quadrant 789.01 [facility] [address] [facility] [id number] [address] [place] [address] Sep, [facility] [address] [facility] [id number] [address] [place] [address] Aug, Irritable bowel syndrome wit h diarrhea K58.0 [facility] [address] [place] [id number] [address] [place] [address] Aug, Urinary tract infection, sit e not specified N39.0 and Back pain M54.9 [facility] [address] [facility] [id number] [address] [place] [address] Mar, Abdominal pain, acute, right upper quadrant 789.01 [facility] [address] [place] [id number] [address] [place] [address] Mar, [facility] [address] [place] [id number] [address] [place] [address] Mar, Nausea 787.02 and Abdominal pain, acute, right upper quadrant 789.01 [facility] [address] [place] [id number] [place] [address] Mar, Nausea 787.02 and Abdominal pain 789.00 [facility] [address] [place] [id number] [address] [place] [address] Mar, Nausea 787.02 [facility] [address] [place] [id number] [address] [place] [address] Jan, Amenorrhea 626.0 [facility] [address] [place] [id number] [place] [address] Jan, Amenorrhea 626.0 and Obesity 278.00 [facility] [address] [place] [id number] [address] [place] [address] December, Amenorrhea 626.0 and Cough 7 86.2 [facility] [address] [place] [id number] [address] [place] [address] Nov, [facility] [address] [place] [id number] [address] [place] [address] Nov, [facility] [address] [place] [id number] [address] [place] [address] May, [facility] [address] [place] [id number] [address] [place] [address] May, [facility] [address] [id number] [facility] [place] [address] Mar, [facility] [address] [id number] [facility] [place] [address] Mar, [facility] [address] [id number] [facility] [place] [address] Mar, [facility] [address] [id number] [address] [place] [address], [place] [address] Mar, [facility] [address] [id number] [address] [place] [address], [place] [address] Mar, [facility] [address] [id number] [address] [place] [address], [place] [address] Mar, [facility] [address] [id number] [address] [place] [address], [place] [address] Mar, [facility] [address] [id number] [address] [place] [address], [place] [address] Mar, [facility] [address] [id number] [address] [place] [address], [place] [address] Mar, [facility] [address] [id number] [address] [place] [address], [place] [address] Mar, [facility] [address] [id number] [address] [place] [address], [place] [address] Mar, [facility] [address] [id number] [address] [place] [address], [place] [address] Mar, [facility] [address] [id number] [address] [place] [address], [place] [address] Mar, [facility] [address] [id number] [address] [place] [address], [place] [address] Mar, [facility] [address] [id number] [address] [place] [address], [place] [address] Mar, [facility] [address] [id number] [address] [place] [address], [place] [address] Feb, [facility] [address] [id number] [address] [place] [address], [place] [address] Feb, 2013 [facility] [address] [id number] [address] [place] [address], [place] [address] Feb, 2013 [facility] [address] [id number] [address] [place] [address], [place] [address] Feb, 2013 [facility] [address] [id number] [address] [place] [address], [place] [address] Feb, 2013 [facility] [address] [id number] [address] [place] [address], [place] [address] Feb, 2013 [facility] [address] [id number] [address] [place] [address], [place] [address] Feb, 2013 [facility] [address] [id number] [address] [place] [address], [place] [address] Feb, 2013 [facility] [address] [id number] [address] [place] [address], [place] [address] Feb, 2013 [facility] [address] [id number] [address] [place] [address], [place] [address] Feb, 2013 [facility] [address] [id number] [address] [place] [address], [place] [address] Feb, 2013 [facility] [address] [id number] [address] [place] [address], [place] [address] Feb, 2013 [facility] [address] [id number] [address] [place] [address], [place] [address] Feb, 2013 [facility] [address] [id number] [address] [place] [address], [place] [address] Feb, [facility] [address] [id number] [address] [place] [address], [place] [address] Feb, [facility] [address] [id number] [address] [place] [address], [place] [address] Jan, [facility] [address] [id number] [address] [place] [address], [place] [address] Jan, [facility] [address] [id number] [facility] [place] [address] Jan, [facility] [address] [id number] [address] [place] [address], [place] [address] Jan, [facility] [address] [id number] [address] [place] [address], [place] [address] Jan, [facility] [address] [id number] [address] [place] [address], [place] [address] Jan, [facility] [address] [id number] [address] [place] [address], [place] [address] Jan, [facility] [address] [id number] [address] [place] [address], [place] [address] Jan, [facility] [address] [id number] [address] [place] [address], [place] [address] Jan, [facility] [address] [id number] [address] [place] [address], [place] [address] Jan, [facility] [address] [id number] [address] [place] [address], [place] [address] Jan, [facility] [address] [id number] [address] [place] [address], [place] [address] Jan, [facility] [address] [id number] [address] [place] [address], [place] [address] Jan, [facility] [address] [id number] [address] [place] [address], [place] [address] December, [facility] [address] [id number] [address] [place] [address], [place] [address] December, [facility] [address] [id number] [address] [place] [address], [place] [address] December, [facility] [address] [id number] [address] [place] [address], [place] [address] December, [facility] [address] [id number] [facility] [place] [address] December, [facility] [address] [id number] [facility] [place] [address] December, [facility] [address] [id number] [facility] [place] [address] December, [facility] [address] [id number] [address] [place] [address], [place] [address] December, [facility] [address] [id number] [facility] [place] [address] December, [facility] [address] [id number] [address] [place] [address], [place] [address] December, [facility] [address] [id number] [address] [place] [address], [place] [address] December, [facility] [address] [id number] [address] [place] [address], [place] [address] December, [facility] [address] [id number] [address] [place] [address], [place] [address] Nov, [facility] [address] [id number] [address] [place] [address], [place] [address] Nov, [facility] [address] [id number] [address] [place] [address], [place] [address] Oct, [facility] [address] [id number] [address] [place] [address], [place] [address] Oct, [facility] [address] [id number] [address] [place] [address], [place] [address] Oct, [facility] [address] [id number] [address] [place] [address], [place] [address] Oct, [facility] [address] [id number] [address] [place] [address], [place] [address] Oct, [facility] [address] [id number] [address] [place] [address], [place] [address] Oct, [facility] [address] [id number] [facility] [place] [address] Oct, [facility] [address] [id number] [facility] [place] [address] Oct, [facility] [address] [id number] [facility] [place] [address] 18 Oct, 2013 [facility] [address] [id number] [address] [place] [address], [place] [address] 08 Oct, 2013 [facility] [address] [id number] [address] [place] [address], [place] [address] 07 Oct, 2013 [facility] [address] [id number] [address] [place] [address], [place] [address] 06 Oct, 2013 [facility] [address] [id number] [address] [place] [address], [place] [address] Oct, [facility] [address] [id number] [address] [place] [address], [place] [address] 05 Oct, 2013 [facility] [address] [id number] [address] [place] [address], [place] [address] Oct, [facility] [address] [id number] [address] [place] [address], [place] [address] Oct, [facility] [address] [id number] [address] [place] [address], [place] [address] Oct, [facility] [address] [id number] [address] [place] [address], [place] [address] Sep, [facility] [address] [id number] [address] [place] [address], [place] [address] Sep, [facility] [address] [id number] [address] [place] [address], [place] [address] Sep, [facility] [address] [id number] [address] [place] [address], [place] [address] Jun, [facility] [address] [id number] [address] [place] [address], [place] [address] Jun, [facility] [address] [id number] [address] [place] [address], [place] [address] Jun, [facility] [address] [id number] [address] [place] [address], [place] [address] Jun, [facility] [address] [id number] [address] [place] [address], [place] [address] Jun, [facility] [address] [id number] [address] [place] [address], [place] [address] Jun, [facility] [address] [id number] [address] [place] [address], [place] [address] May, [facility] [address] [id number] [address] [place] [address], [place] [address] May, [facility] [address] [id number] [address] [place] [address], [place] [address] May, [facility] [address] [id number] [address] [place] [address], [place] [address] May, [facility] [address] [id number] [address] [place] [address], [place] [address] May, [facility] [address] [id number] [address] [place] [address], [place] [address] May, [facility] [address] [id number] [address] [place] [address], [place] [address] 26 Apr, 2013 [facility] [address] [id number] [address] [place] [address], [place] [address] 24 Apr, 2013 [facility] [address] [id number] [address] [place] [address], [place] [address] 23 Apr, 2013 [facility] [address] [id number] [address] [place] [address], [place] [address] 20 Apr, 2013 [facility] [address] [id number] [address] [place] [address], [place] [address] 19 Apr, 2013 [facility] [address] [id number] [address] [place] [address], [place] [address] 17 Apr, 2012 [facility] [address] [id number] [address] [place] [address], [place] [address] 13 Apr, 2012 [facility] [address] [id number] [address] [place] [address], [place] [address] 11 Apr, 2012 [facility] [address] [id number] [address] [place] [address], [place] [address] 09 Apr, 2013 [facility] [address] [id number] [address] [place] [address], [place] [address] 05 Apr, 2013 [facility] [address] [id number] [address] [place] [address], [place] [address] Mar, [facility] [address] [id number] [address] [place] [address], [place] [address] Nov, [facility] [address] [id number] [address] [place] [address], [place] [address] Oct, [facility] [address] [id number] [address] [place] [address], [place] [address] Oct, [facility] [address] [id number] [address] [place] [address], [place] [phone] Sep, [facility] [address] [id number] [address] [place] [address], [place] [phone] May, [facility] [address] [id number] [address] [place] [phone] 27 May, 2012 [facility] [address] [id number] [address] [place] [address], [place] [phone] May, [facility] [address] [id number] [address] [place] [address], [place] [phone] 11 May, 2012 [facility] [address] [id number] [address] [place] [address], [place] [phone] 24 Apr, 2012 [facility] [address] [id number] [address] [place] [phone] Apr, [facility] [address] [facility] [id number] [address] [place] [phone] Mar, [facility] [address] [facility] [id number] [address] [place] [phone] Feb, [facility] [address] [facility] [id number] [address] [place] [phone] Jul, [facility] [address] [facility] [id number] [address] [place] [phone] Jul, [facility] [address] [facility] [id number] [address] [place] [phone] Jul, [facility] [address] [facility] [id number] [address] [place] [phone] December, [facility] [address] [facility] [id number] [address] [place] [phone] December, [facility] [address] [facility] [id number] [address] [place] [phone] Oct, IMMUNIZATIONS No Known Immunizations SOCIAL HISTORY Never Assessed REASON FOR VISIT Depression f/u, Has not had period since March, all tests have been n egative. Went to walk-in clinic on 08/09/17, did urine, no bloodwork. , Taking z ofran for nausea, states helped until last night when started vomiting. Denies f ever or body aches. admaa ha PLAN OF CARE Activity Details Follow Up 3 Months Reason: VITAL SIGNS Height 68 in 2017-08-23 Weight 249.5 lbs 2017-08-23 Temperature 97.1 degrees Fahrenheit 2017-08-23 Heart Rate 74 bpm 2017-08-23 Respiratory Rate 20 2017-08-23 BMI 37.93 kg/m2 2017-08-23 Blood pressure systolic 118 mmHg 2017-08-23 Blood pressure diastolic 70 mmHg 2017-08-23 MEDICATIONS Medication Instructions Dosage Frequency Start Date End Date Duration S tatus Ferrous Sulfate 325 (65 Fe) MG Orally twice a day 1 tablet 12h Apr, 30 days Active Zofran ODT 4 MG Orally every 8 hrs 1 tablet on the tongue and al low to dissolve 8h Jul, 10 days Active Abilify 10 mg Orally Once a day 1 tablet 24h 14 Jun, 2017 90 days Active Zofran 4 MG Orally Once a day 2 tablets 24h May, 30 day(s) Not-Taking Pantoprazole Sodium 20 mg Orally Once a day 1 tablet 24h May 30 day(s) Not-Taking BusPIRone HCl 7.5 MG Orally 3 times a day 1 tablet 8h Aug, 14 days Active RESULTS No Results PROCEDURES Procedure Date Ordered Result Body Site [facility] Aug 23, 2017 VENIPUNCT, ROUTINE* Aug 23, 2017 INSTRUCTIONS MEDICATIONS ADMINISTERED No Known Medications MEDICAL (GENERAL) HISTORY Type Description Date Medical History anemia Medical History asthma Surgical History section x2 Surgical History hernia repair Hospitalization History surgeries Hospitalization History possible gallbladder problems Hospitalization History ER visit for UTI 09/12/15 Hospitalization History dizziness, blackout 12/28/2017
--- OUTSIDE RECORDS SUMMARY | 2019-10-07 05:36 | XMS REPORT ---
Author Author Jailene ALVES Organization [facility] Address [address] [place] [address] Care Team Providers Care Cycle Repairer Name Role Phone JOSELYNWANDARYL Unavailable PROBLEMS Type Condition ICD9-CM Code DZE84-TM Code Onset Dates Condition S tatus SNOMED Code Problem Hives L50.9 Active 581666979 Problem Desire for Z31.9 Active 044110877 Problem Iron deficiency anemia secondary to inadequate d ietary iron intake D50.8 Active 233359479 Problem Generalized anxiety disorder F41.1 A ctive 62650211 Problem Primary insomnia F51.01 Active 397 2004 Problem Amenorrhea N91.2 Active 66896846 Problem Unspecified mood [affective] disorder F39 Active [id number] ALLERGIES Substance Reaction Event Type Date Status Lamotrigine rash Drug Allergy Jun, Active Abigail Unknown Drug Allergy Jun, Active ENCOUNTERS Encounter Location Date Diagnosis [facility] [address] [place] [id number] [address] [place] [address] December, Subcutaneous nodules R22.9 ; Syncope, unspecified syncope type R55 ; Abnormal MRI of head R93.0 and Iron deficiency anemia secondary to inadequate dietary iron intake D50.8 [facility] [address] [id number] [address] [place] [address] December, [facility] [address] [facility] [id number] [address] [place] [address] December, Iron deficiency anemia secon chuck to inadequate dietary iron intake D50.8 and BMI 40.0-44.9, adult Z68.41 [facility] [address] [facility] [id number] [address] [place] [address] Nov, Gastroenteritis K52.9 [facility] [address] [id number] [address] [place] [address] Nov, [place] [address] [address] Nov, Bilateral hand swelling M79. 89 ; Amenorrhea N91.2 ; Desire for Z31.9 ; Amenorrhea, unspecified N91.2 ; Bilateral swelling of feet M79.89 ; Rash R21 and Iron deficiency anemia, unspecified iron deficiency anemia type D50.9 [place] [address] [address] Nov, Bilateral hand swelling M79. 89 ; Bilateral swelling of feet M79.89 and Rash R21 [place] [address] [address] Sep, Desire for Z31.9 a nd Amenorrhea N91.2 [facility] [place] [address] [address] Aug, Scabies B86 [place] [address] [address] Aug, Amenorrhea, unspecified N91. 2 [place] [address] [address] Aug, Amenorrhea, unspecified N91. 2 [place] [address] [address] Aug, Amenorrhea N91.2 and Iron de ficiency anemia, unspecified iron deficiency anemia type D50.9 [place] [address] [place] [id number] [address] [place] [address] Aug, Iron deficiency anemia secon chuck to inadequate dietary iron intake D50.8 ; Amenorrhea N91.2 ; Generalized anxiety disorder F41.1 ; Unspecified mood [affective] disorder F39 and Nausea R11.0 [facility] [address] [place] [id number] [address] [place] [address] Jul, Non-intractable vomiting wit h nausea, unspecified vomiting type R11.2 and Pleurisy R09.1 [facility] [address] [facility] [id number] [address] [place] [address] Jul, [facility] [address] [facility] [id number] [address] [place] [address] Jun, Unspecified mood [affective] disorder F39 [facility] [address] [facility] [id number] [address] [place] [address] 02 Jun, 2017 Unspecified mood [affective] disorder F39 and Generalized anxiety disorder F41.1 [facility] [address] [facility] [id number] [address] [place] [address] May, Bilious vomiting with nausea R11.14 [facility] [address] [facility] [id number] [address] [place] [address] May, Unspecified mood [affective] disorder F39 ; Generalized anxiety disorder F41.1 and Iron deficiency anemia, unspecified iron deficiency anemia type D50.9 [facility] [address] [facility] [id number] [address] [place] [address] Apr, Unspecified mood [affective] disorder F39 [facility] [address] [facility] [id number] [address] [place] [address] Apr, Iron deficiency anemia, unsp ecified iron deficiency anemia type D50.9 [facility] [address] [facility] [id number] [address] [place] [address] Apr, Iron deficiency anemia, unsp ecified iron deficiency anemia type D50.9 [facility] [address] [facility] [id number] [address] [place] [address] 18 Apr, 2017 Unspecified mood [affective] disorder F39 [facility] [address] [facility] [id number] [address] [place] [address] Apr, Abnormal CBC R79.89 [facility] [address] [facility] [id number] [address] [place] [address] 07 Apr, 2017 Abnormal CBC R79.89 [facility] [address] [facility] [id number] [address] [place] [address] 05 Apr, 2017 Encounter to establish care with new doctor Z76.89 ; Unspecified mood [affective] disorder F39 and Primary insomnia F51.01 [facility] [address] [facility] [id number] [address] [place] [address] 2017 Unspecified mood [affective] disorder F39 and Generalized anxiety disorder F41.1 [facility] [address] [facility] [id number] [address] [place] [address] 13 Mar, 2017 Sore throat J02.9 and Strep pharyngitis J02.0 [facility] [address] [id number] Feb, Dental examination Z01.20 [facility] [address] [id number] Jan, Encounter for dental examina tion Z01.20 [facility] [address] [id number] [address] [place] [address] Nov, Fever, unspecified R50.9 and Acute nasopharyngitis J00 [facility] [address] [place] [id number] [address] [place] [address] 18 Sep, 2015 Abdominal pain, acute, right upper quadrant 789.01 [facility] [id number] [place] [address] Sep, [facility] [address] [place] [id number] [address] [place] [address] Aug, Irritable bowel syndrome wit h diarrhea K58.0 [facility] [address] [id number] [place] [address] Aug, Urinary tract infection, sit e not specified N39.0 and Back pain M54.9 [facility] [address] [id number] [address] [place] [address] Mar, Abdominal pain, acute, right upper quadrant 789.01 [facility] [address] [facility] [id number] [address] [place] [address] Mar, [facility] [address] [id number] [address] [place] [address] Mar, Nausea 787.02 and Abdominal pain, acute, right upper quadrant 789.01 [facility] [address] [facility] [id number] [address] [place] [address] Mar, Nausea 787.02 and Abdominal pain 789.00 [facility] [address] [facility] [id number] [address] [place] [address] Mar, Nausea 787.02 [facility] [address] [facility] [id number] [address] [place] [address] Jan, Amenorrhea 626.0 [facility] [address] [facility] [id number] [address] [place] [address] Jan, Amenorrhea 626.0 and Obesity 278.00 [facility] [address] [id number] [address] [place] [address] December, Amenorrhea 626.0 and Cough 7 86.2 [facility] [address] [facility] [id number] [address] [place] [address] Nov, [facility] [address] [facility] [id number] [address] [place] [address] Nov, [facility] [address] [facility] [id number] [address] [place] [address] May, [facility] [address] [id number] [address] [place] [address] May, [facility] [address] [facility] [id number] [address] [place] [address] Mar, [facility] [address] [facility] [id number] [address] [place] [address] Mar, [facility] [address] [facility] [id number] [address] [place] [address] Mar, [facility] [address] [id number] [address] [place] [address], [place] [address] Mar, [facility] [address] [id number] [address] [place] [address], [place] [address] Mar, [facility] [address] [id number] [address] [place] [address], [place] [address] Mar, [facility] [address] [id number] [address] [place] [address], [place] [address] Mar, [facility] [address] [id number] [address] [place] [address], [place] [address] Mar, [facility] [address] [id number] [address] [place] [address], [place] [address] Mar, [facility] [address] [id number] [address] [place] [address], [place] [address] Mar, [facility] [address] [id number] [address] [place] [address], [place] [address] Mar, [facility] [address] [id number] [address] [place] [address], [place] [address] Mar, [facility] [address] [id number] [address] [place] [address], [place] [address] Mar, [facility] [address] [id number] [address] [place] [address], [place] [address] Mar, [facility] [address] [id number] [address] [place] [address], [place] [address] Mar, [facility] [address] [id number] [address] [place] [address], [place] [address] Feb, [facility] [address] [id number] [address] [place] [address], [place] [address] Feb, [facility] [address] [id number] [address] [place] [address], [place] [address] Feb, [facility] [address] [id number] [facility] [place] [address] Feb, 2013 [facility] [address] [id number] [facility] [place] [address] Feb, 2013 [facility] [address] [id number] [facility] [place] [address] Feb, 2013 [facility] [address] [id number] [address] [place] [address], [place] [address] Feb, 2013 [facility] [address] [id number] [address] [place] [address], [place] [address] Feb, 2013 [facility] [address] [id number] [address] [place] [address], [place] [address] Feb, 2013 [facility] [address] [id number] [address] [place] [address], [place] [address] Feb, 2013 [facility] [address] [id number] [address] [place] [address], [place] [address] Feb, 2013 [facility] [address] [id number] [address] [place] [address], [place] [address] Feb, [facility] [address] [id number] [address] [place] [address], [place] [address] Feb, [facility] [address] [id number] [address] [place] [address], [place] [address] Feb, [facility] [address] [id number] [address] [place] [address], [place] [address] Feb, [facility] [address] [id number] [address] [place] [address], [place] [address] Jan, [facility] [address] [id number] [address] [place] [address], [place] [address] Jan, [facility] [address] [id number] [address] [place] [address], [place] [address] Jan, [facility] [address] [id number] [address] [place] [address], [place] [address] Jan, [facility] [address] [id number] [facility] [place] [address] Jan, [facility] [address] [id number] [facility] [place] [address] Jan, [facility] [address] [id number] [facility] [place] [address] Jan, [facility] [address] [id number] [facility] [place] [address] Jan, [facility] [address] [id number] [facility] [place] [address] Jan, [facility] [address] [id number] [address] [place] [address], [place] [address] Jan, [facility] [address] [id number] [facility] [place] [address] Jan, [facility] [address] [id number] [address] [place] [address], [place] [address] Jan, [facility] [address] [id number] [address] [place] [address], [place] [address] Jan, [facility] [address] [id number] [address] [place] [address], [place] [address] December, [facility] [address] [id number] [address] [place] [address], [place] [address] December, [facility] [address] [id number] [address] [place] [address], [place] [address] December, [facility] [address] [id number] [address] [place] [address], [place] [address] December, [facility] [address] [id number] [address] [place] [address], [place] [address] December, [facility] [address] [id number] [facility] [place] [address] December, [facility] [address] [id number] [facility] [place] [address] December, [facility] [address] [id number] [address] [place] [address], [place] [address] December, [facility] [address] [id number] [address] [place] [address], [place] [address] December, [facility] [address] [id number] [address] [place] [address], [place] [address] December, [facility] [address] [id number] [address] [place] [address], [place] [address] December, [facility] [address] [id number] [address] [place] [address], [place] [address] December, [facility] [address] [id number] [address] [place] [address], [place] [address] Nov, [facility] [address] [id number] [address] [place] [address], [place] [address] Nov, [facility] [address] [id number] [address] [place] [address], [place] [address] Oct, [facility] [address] [id number] [address] [place] [address], [place] [address] Oct, [facility] [address] [id number] [address] [place] [address], [place] [address] Oct, [facility] [address] [id number] [address] [place] [address], [place] [address] Oct, [facility] [address] [id number] [address] [place] [address], [place] [address] Oct, [facility] [address] [id number] [address] [place] [address], [place] [address] Oct, [facility] [address] [id number] [address] [place] [address], [place] [address] Oct, [facility] [address] [id number] [address] [place] [address], [place] [address] Oct, [facility] [address] [id number] [facility] [place] [address] 18 Oct, 2013 [facility] [address] [id number] [address] [place] [address], [place] [address] 08 Oct, 2013 [facility] [address] [id number] [address] [place] [address], [place] [address] 07 Oct, 2013 [facility] [address] [id number] [address] [place] [address], [place] [address] 06 Oct, 2013 [facility] [address] [id number] [address] [place] [address], [place] [address] 06 Oct, 2013 [facility] [address] [id number] [address] [place] [address], [place] [address] 05 Oct, 2013 [facility] [address] [id number] [address] [place] [address], [place] [address] Oct, [facility] [address] [id number] [address] [place] [address], [place] [address] Oct, [facility] [address] [id number] [address] [place] [address], [place] [address] Oct, [facility] [address] [id number] [address] [place] [address], [place] [address] Sep, [facility] [address] [id number] [address] [place] [address], [place] [address] Sep, [facility] [address] [id number] [address] [place] [address], [place] [address] Sep, [facility] [address] [id number] [address] [place] [address], [place] [address] Jun, [facility] [address] [id number] [address] [place] [address], [place] [address] Jun, [facility] [address] [id number] [address] [place] [address], [place] [address] Jun, [facility] [address] [id number] [address] [place] [address] Jun, [facility] [address] [id number] [address] [place] [address], [place] [address] Jun, [facility] [address] [id number] [address] [place] [address] Jun, [facility] [address] [id number] [address] [place] [address], [place] [address] May, [facility] [address] [id number] [address] [place] [address] May, [facility] [address] [id number] [address] [place] [address], [place] [address] May, [facility] [address] [id number] [address] [place] [address], [place] [address] May, [facility] [address] [id number] [address] [place] [id number] May, [facility] [address] [id number] [address] [place] [address], [place] [address] May, [facility] [address] [id number] [address] [place] [address], [place] [address] 26 Apr, 2013 [facility] [address] [id number] [address] [place] [address], [place] [address] 24 Sep2012 [facility] [address] [id number] [address] [place] [id number] 23 Sep, 2012 [facility] [address] [id number] [address] [place] [id number] 20 Sep, 2012 [facility] [address] [id number] [address] [place] [address], [place] [address] 19 Sep, 2012 [facility] [address] [id number] [address] [place] [address], [place] [address] 17 Sep, 2012 [facility] [address] [id number] [address] [place] [address], [place] [address] 13 Sep, 2012 [facility] [address] [id number] [address] [place] [address], [place] [address] 11 Apr, 2013 [facility] [address] [id number] [address] [place] [address], [place] [address] 09 Apr, 2013 [facility] [address] [id number] [address] [place] [address], [place] [address] 05 Apr, 2013 [facility] [address] [id number] [address] [place] [address], [place] [address] Mar, [facility] [address] [id number] [address] [place] [address], [place] [address] Nov, [facility] [address] [id number] [address] [place] [address], [place] [address] Oct, [facility] [address] [id number] [address] [place] [address], [place] [address] Oct, [facility] [address] [id number] [address] [place] [address], [place] [address] Sep, [facility] [address] [id number] [address] [place] [address], [place] [address] May, [facility] [address] [id number] [address] [place] [address], [place] [address] May, [facility] [address] [id number] [address] [place] [address], [place] [address] May, [facility] [address] [id number] [address] [place] [address], [place] [address] May, [facility] [address] [id number] [address] [place] [address], [place] [address] 24 Apr, 2012 [facility] [address] [id number] [address] [place] [address], [place] [address] Apr, [facility] [address] [id number] [address] [place] [address], [place] [address] Mar, [facility] [address] [id number] [address] [place] [address], [place] [address] Feb, [facility] [place] [address] [facility] [id number] [address] [place] [id number] Jul, [facility] [place] [address] [facility] [id number] [address] [place] [id number] Jul, [facility] [place] [address] [facility] [id number] [address] [place] [address] Jul, [facility] [place] [address] [facility] [id number] [address] [place] [id number] December, [facility] [place] [address] [facility] [id number] [address] [place] [id number] December, [facility] [place] [address] [facility] [id number] [address] [place] [address] Oct, IMMUNIZATIONS No Known Immunizations SOCIAL HISTORY Never Assessed REASON FOR VISIT F/U, pt. states medication is giving her anxiety attacks to the point she is not sleeping and angry all the time---RIGO Wilson PLAN OF CARE Activity Details Follow Up 4 Weeks Reason:f/u moods VITAL SIGNS Height 68 in 2017-06-21 Weight 250.1 lbs 2017-06-21 Temperature 97.8 degrees Fahrenheit 2017-06-21 Heart Rate 77 bpm 2017-06-21 Respiratory Rate 18 2017-06-21 BMI 38.02 kg/m2 2017-06-21 Blood pressure systolic 127 mmHg 2017-06-21 Blood pressure diastolic 76 mmHg 2017-06-21 MEDICATIONS Medication Instructions Dosage Frequency Start Date End Date Duration S tatus Seroquel 50 mg Orally Once a day 1 tablet 24h Jun, 3 0 day(s) Active Ferrous Sulfate 325 (65 Fe) MG Orally twice a day 1 tablet 12h 21 2016 Active Pantoprazole Sodium 20 mg Orally Once a day 1 tablet 24h May 30 day(s) Active Zofran 4 MG Orally Once a day 2 tablets 24h May, 30 day(s) Active RESULTS No Results PROCEDURES No Known procedures INSTRUCTIONS MEDICATIONS ADMINISTERED No Known Medications MEDICAL (GENERAL) HISTORY Type Description Date Medical History anemia Medical History asthma Surgical History section x2 Surgical History hernia repair Hospitalization History surgeries Hospitalization History possible gallbladder problems Hospitalization History ER visit for UTI 09/12/15 Hospitalization History dizziness, blackout 12/28/2017
--- OUTSIDE RECORDS SUMMARY | 2019-10-07 05:37 | XMS REPORT ---
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 Name Role Phone MILY RICHTER Unavailable PROBLEMS Type Condition ICD9-CM Code IZU14-IE Code Onset Dates Condition S tatus SNOMED Code Problem Generalized anxiety disorder F41.1 A ctive 99235919 Problem Iron deficiency anemia secondary to inadequate d ietary iron intake D50.8 Active 101232892 Problem Elevated erythrocyte sedimentation rate R70.0 Active 157378809 Problem Primary insomnia F51.01 Active 397 2004 ALLERGIES No Information ENCOUNTERS Encounter Location Date Diagnosis [facility] [address] [address] Aug, Nausea R11.0 and Gastroenter itis K52.[address] [address] Jul, Visit for TB skin test Z11.[address] [address] Apr, [facility] [address] [address] Mar, Viral upper respiratory trac t infection J06.9 and Morbid obesity E66.[address] [address] Feb, [address] [address] Sep, Fever, unspecified fever cause R50.9 ; S ore throat J02.9 ; Cough R05 ; Influenza A J10.1 and BMI 40.0-44.9, adult Z68.41 [facility] [place] [address] [address] [place] [id number] [address] [place] [address] 15 Sep, 2018 Sore throat J02.9 ; Viral up per respiratory tract infection J06.9 and BMI 40.0-44.9, adult Z68.[address] [address] 04 Jul, 2018 Bacterial conjunctivitis of right eye H1 0.9 and BMI 40.0-44.9, adult Z68.41 [place] [address] [address] 14 Jun, 2018 Viral URI J06.[address] [address] 07 Jun, 2018 Viral upper respiratory infe ction J06.9 ; Acute gastroenteritis K52.9 and BMI 40.0-44.9, adult Z68.[address] [address] 10 May, 2018 Acute conjunctivitis of right eye, unspe cified acute conjunctivitis type H10.31 ; Unspecified mood [affective] disorder F39 ; Generalized anxiety disorder F41.1 and BMI 40.0-44.9, adult Z68.[address] [address] May, [address] [address] Apr, Other specified abnormal findings of blo od chemistry R79.89 [place] [id number] [address] [place] [address] Apr, Sore throat J02.9 ; Diarrhea , unspecified R19.7 and Vomiting, unspecified R11.[address] [address] 11 Apr, 2018 Chronic fatigue R53.82 ; Nausea R11.0 an d Lyme disease A69.[address] [address] Apr, [place] [address] [address] Mar, Generalized anxiety disorder F41.1 ; Uns pecified mood [affective] disorder F39 ; BMI 40.0-44.9, adult Z68.41 and Myalgia M79.1 [facility] [address] [address] Feb, Elevated erythrocyte sedimentation rate R70.0 [place] [address] [address] Feb, Elevated erythrocyte sedimentation rate R70.0 [place] [address] [address] Feb, Unprotected sexual intercourse Z72.51 ; Pain in left knee M25.562 and Pain in joints of right hand M25.541 [place] [address] [address] Feb, Pain in left knee M25.562 and Pain in thor ints of right hand M25.541 [place] [address] [address] Feb, Unspecified mood [affective] disorder F3 9 ; Generalized anxiety disorder F41.1 ; Pain in joints of right hand M25.541 ; Pain in joints of left hand M25.542 ; Pain in right knee M25.561 ; Pain in left knee M25.562 and Morbid (severe) obesity due to excess calories E66.01 [facility] [address] [facility] [id number] [address] [place] [address] Jan, Sore throat J02.9 ; Strep th roat J02.0 ; BMI 40.0-44.9, adult Z68.41 ; Dysuria R30.0 and Acute cystitis with hematuria N30.01 [facility] [address] [address] Jan, [place] [address] [address] December, Abnormal MRI of head R93.0 [place] [address] [address] December, Subcutaneous nodules R22.9 ; Syncope, un specified syncope type R55 ; Abnormal MRI of head R93.0 and Iron deficiency anemia secondary to inadequate dietary iron intake D50.8 [place] [address] [address] December, [place] [address] [address] December, Iron deficiency anemia secondary to inad equate dietary iron intake D50.8 and BMI 40.0-44.9, adult Z68.41 [facility] [place] [address] [address] [facility] [id number] [place] [address] Nov, Gastroenteritis K52.9 [place] [address] [address] Nov, [place] [address] [address] Nov, Bilateral hand swelling M79.89 ; Amenorr hea N91.2 ; Desire for Z31.9 ; Amenorrhea, unspecified N91.2 ; Bilateral swelling of feet M79.89 ; Rash R21 and Iron deficiency anemia, unspecified iron deficiency anemia type D50.9 [place] [address] [address] Nov, Bilateral hand swelling M79.89 ; Bilater al swelling of feet M79.89 and Rash R21 [place] [address] [address] Sep, Desire for Z31.9 and Amenorrhe a N91.2 [facility] [place] [address] [address] [facility] [id number] [address] [place] [address] Aug, Scabies B86 [place] [address] [address] Aug, Amenorrhea, unspecified N91.2 [facility] [address] [address] Aug, Amenorrhea, unspecified N91.2 [place] [address] [address] Aug, Amenorrhea N91.2 and Iron deficiency ane gerson, unspecified iron deficiency anemia type D50.9 [place] [address] [address] Aug, Iron deficiency anemia secondary to inad equate dietary iron intake D50.8 ; Amenorrhea N91.2 ; Generalized anxiety disorder F41.1 ; Unspecified mood [affective] disorder F39 and Nausea R11.0 [facility] [address] [facility] [id number] [address] [place] [address] Jul, Non-intractable vomiting wit h nausea, unspecified vomiting type R11.2 and Pleurisy R09.1 [place] [address] [address] Jul, [place] [address] [address] Jun, Unspecified mood [affective] disorder F3 9 [place] [address] [address] 02 Jun, 2017 Unspecified mood [affective] disorder F3 9 and Generalized anxiety disorder F41.1 [place] [address] [address] May, Bilious vomiting with nausea R11.14 [place] [address] [address] May, Unspecified mood [affective] disorder F3 9 ; Generalized anxiety disorder F41.1 and Iron deficiency anemia, unspecified iron deficiency anemia type D50.9 [place] [address] [address] Apr, Unspecified mood [affective] disorder F3 9 [place] [address] [address] Apr, Iron deficiency anemia, unspecified iron deficiency anemia type D50.9 [facility] [address] [address] Apr, Iron deficiency anemia, unspecified iron deficiency anemia type D50.9 [facility] [address] [address] Apr, Unspecified mood [affective] disorder F3 9 [facility] [address] [address] Apr, Abnormal CBC R79.89 [place] [address] [address] Apr, Abnormal CBC R79.89 [place] [address] [address] Apr, Encounter to establish care with pramod mcgregor tor Z76.89 ; Unspecified mood [affective] disorder F39 and Primary insomnia F51.01 [facility] [address] [address] Mar, Unspecified mood [affective] disorder F3 9 and Generalized anxiety disorder F41.1 [facility] [address] [facility] [id number] [address] [place] [address] Mar, Sore throat J02.9 and Strep pharyngitis J02.0 [facility] [address] [id number] Feb, Dental examination Z01.20 [facility] [address] [id number] Jan, Encounter for dental examination Z01.20 [facility] [address] [address] Nov, Fever, unspecified R50.9 and Acute nasop haryngitis J00 [facility] [address] [address] 18 Sep, 2015 Abdominal pain, acute, right upper quadr ant 789.01 [facility] [address] [address] Sep, [place] [address] [address] Aug, Irritable bowel syndrome with diarrhea K 58.0 [place] [address] [address] Aug, Urinary tract infection, site not specif ied N39.0 and Back pain M54.9 [place] [address] [address] Mar, Abdominal pain, acute, right upper quadr ant 789.01 [place] [address] [address] Mar, [place] [address] [address] Mar, Nausea 787.02 and Abdominal pain, acute, right upper quadrant 789.01 [place] [address] [address] Mar, Nausea 787.02 and Abdominal pain 789.00 [place] [address] [address] Mar, Nausea 787.02 [place] [address] [address] Jan, Amenorrhea 626.0 [place] [address] [address] Jan, Amenorrhea 626.0 and Obesity 278.00 [place] [address] [address] December, Amenorrhea 626.0 and Cough 786.2 [place] [address] [address] Nov, [place] [address] [address] Nov, [facility] [place] [facility] [address] [facility] [id number] [place] [address] May, [facility] [place] [facility] [address] [facility] [id number] [place] [address] May, [facility] [place] [facility] [address] [id number] [place] [address] Mar, [facility] [place] [facility] [address] [facility] [id number] [place] [address] Mar, [facility] [place] [facility] [address] [facility] [id number] [place] [address] Mar, [facility] [place] [facility] [address] [facility] [id number] [place] [address] Mar, [facility] [place] [facility] [address] [id number] [place] [address] Mar, [facility] [place] [facility] [address] [id number] [place] [address] Mar, [facility] [place] [facility] [address] [id number] [place] [address] Mar, [facility] [place] [facility] [address] [id number] [place] [address] Mar, [facility] [place] [facility] [address] [id number] [place] [address] Mar, [facility] [place] [facility] [address] [id number] [place] [address] Mar, [facility] [place] [facility] [address] [facility] [id number] [place] [address] Mar, [facility] [place] [facility] [address] [id number] [place] [address] Mar, [facility] [place] [facility] [address] [id number] [place] [address] Mar, [facility] [place] [facility] [address] [id number] [place] [address] Mar, [facility] [place] [facility] [address] [id number] [place] [address] Mar, 2013 [facility] [place] [facility] [address] [id number] [place] [address] Feb, 2013 [facility] [place] [facility] [address] [facility] [id number] [place] [address] Feb, 2013 [facility] [place] [facility] [address] [id number] [place] [address] Feb, 2013 [facility] [place] [facility] [address] [facility] [id number] [place] [address] Feb, 2013 [facility] [place] [facility] [address] [facility] [id number] [place] [address] Feb, 2013 [facility] [place] [facility] [address] [id number] [place] [address] Feb, 2013 [facility] [place] [facility] [address] [id number] [place] [address] Feb, 2013 [facility] [place] [facility] [address] [id number] [place] [address] Feb, 2013 [facility] [place] [facility] [address] [facility] [id number] [place] [address] Feb, 2013 [facility] [place] [facility] [address] [id number] [place] [address] Feb, 2013 [facility] [place] [facility] [address] [id number] [place] [address] Feb, 2013 [facility] [place] [facility] [address] [id number] [place] [address] Feb, 2013 [facility] [place] [facility] [address] [facility] [id number] [place] [address] Feb, 2013 [facility] [place] [facility] [address] [id number] [place] [address] Feb, 2013 [facility] [place] [facility] [address] [id number] [place] [address] Feb, 2013 [facility] [place] [facility] [address] [id number] [place] [address] Jan, [facility] [place] [facility] [address] [facility] [id number] [place] [address] Jan, [facility] [place] [facility] [address] [facility] [id number] [place] [address] Jan, [facility] [place] [facility] [address] [id number] [place] [address] Jan, [facility] [place] [facility] [address] [id number] [place] [address] Jan, [facility] [place] [facility] [address] [facility] [id number] [place] [address] Jan, [facility] [place] [facility] [address] [id number] [place] [address] Jan, [facility] [place] [facility] [address] [id number] [place] [address] Jan, [facility] [place] [facility] [address] [id number] [place] [address] Jan, [facility] [place] [facility] [address] [id number] [place] [address] Jan, [facility] [place] [facility] [address] [id number] [place] [address] Jan, [facility] [place] [facility] [address] [id number] [place] [address] Jan, [facility] [place] [facility] [address] [id number] [place] [address] Jan, [facility] [place] [facility] [address] [id number] [place] [address] December, [facility] [place] [facility] [address] [facility] [id number] [place] [address] December, [facility] [place] [facility] [address] [id number] [place] [address] December, [facility] [place] [facility] [address] [id number] [place] [address] December, [facility] [place] [facility] [address] [id number] [place] [address] December, [facility] [place] [facility] [address] [facility] [id number] [place] [address] December, [facility] [place] [facility] [address] [facility] [id number] [place] [address] December, [facility] [place] [facility] [address] [id number] [place] [address] December, [facility] [place] [facility] [address] [facility] [id number] [place] [address] December, [facility] [place] [facility] [address] [facility] [id number] [place] [address] December, [facility] [place] [facility] [address] [id number] [place] [address] December, [facility] [place] [facility] [address] [id number] [place] [address] December, [facility] [place] [facility] [address] [id number] [place] [address] Nov, [facility] [place] [facility] [address] [facility] [id number] [place] [address] Nov, [facility] [place] [facility] [address] [id number] [place] [address] Oct, [facility] [place] [facility] [address] [id number] [place] [address] Oct, [facility] [place] [facility] [address] [id number] [place] [address] Oct, [facility] [place] [facility] [address] [facility] [id number] [place] [address] Oct, [facility] [place] [facility] [address] [id number] [place] [address] Oct, [facility] [place] [facility] [address] [id number] [place] [address] Oct, [facility] [place] [facility] [address] [id number] [place] [address] Oct, [facility] [place] [facility] [address] [id number] [place] [address] Oct, [facility] [place] [facility] [address] [facility] [id number] [place] [address] Oct, [facility] [place] [facility] [address] [id number] [place] [address] Oct, [facility] [place] [facility] [address] [id number] [place] [address] Oct, [facility] [place] [facility] [address] [id number] [place] [address] Oct, [facility] [place] [facility] [address] [id number] [place] [address] Oct, [facility] [place] [facility] [address] [id number] [place] [address] Oct, [facility] [place] [facility] [address] [id number] [place] [address] Oct, [facility] [place] [facility] [address] [id number] [place] [address] Oct, [facility] [place] [facility] [address] [id number] [place] [address] Oct, [facility] [place] [facility] [address] [id number] [place] [address] Sep, [facility] [place] [facility] [address] [id number] [place] [address] Sep, [facility] [place] [facility] [address] [id number] [place] [address] Sep, [facility] [place] [facility] [address] [id number] [place] [address] Jun, [facility] [place] [facility] [address] [id number] [place] [address] Jun, [facility] [place] [facility] [address] [id number] [place] [address] Jun, [facility] [place] [facility] [address] [id number] [place] [address] Jun, [facility] [place] [facility] [address] [id number] [place] [address] Jun, [facility] [place] [facility] [address] [id number] [place] [address] Jun, [facility] [place] [facility] [address] [id number] [place] [address] May, [facility] [place] [facility] [address] [id number] [place] [address] May, [facility] [place] [facility] [address] [id number] [place] [address] May, [facility] [place] [facility] [address] [id number] [place] [address] May, [facility] [place] [facility] [address] [id number] [place] [address] May, [facility] [place] [facility] [address] [id number] [place] [address] May, [facility] [place] [facility] [address] [id number] [place] [address] 26 Sep, 2012 [facility] [place] [facility] [address] [id number] [place] [address] 24 Sep2012 [facility] [place] [facility] [address] [id number] [place] [address] 23 Sep, 2012 [facility] [place] [facility] [address] [id number] [place] [address] 20 Sep, 2012 [facility] [place] [facility] [address] [id number] [place] [address] 19 Sep, 2012 [facility] [place] [facility] [address] [id number] [place] [address] 17 Sep, 2012 [facility] [place] [facility] [address] [id number] [place] [address] 13 Sep, 2012 [facility] [place] [facility] [address] [id number] [place] [address] 11 Sep, 2012 [facility] [place] [facility] [address] [id number] [place] [address] 09 Apr, 2013 [facility] [place] [facility] [address] [id number] [place] [address] 05 Apr, 2013 [facility] [place] [facility] [address] [id number] [place] [address] Mar, [facility] [place] [facility] [address] [id number] [place] [address] Nov, [facility] [place] [facility] [address] [id number] [place] [address] Oct, [facility] [address] [id number] [place] [address] Oct, [facility] [address] [id number] [place] [address] Sep, [facility] [address] [id number] [place] [address] May, [facility] [address] [id number] [place] [address] May, [facility] [address] [id number] [place] [address] May, [facility] [address] [id number] [place] [address] May, [facility] [address] [id number] [place] [address] Apr, [facility] [id number] [place] [address] Apr, [facility] [address] [id number] [place] [address] Mar, [facility] [id number] [place] [address] Feb, [facility] [address] [id number] [place] [address] Jul, [facility] [address] [id number] [place] [address] Jul, [facility] [address] [id number] [place] [address] Jul, [facility] [address] [id number] [place] [address] December, [facility] [address] [id number] [place] [address] December, [facility] [address] [id number] [place] [address] Oct, IMMUNIZATIONS No Known Immunizations SOCIAL HISTORY [...]
--- OUTSIDE RECORDS SUMMARY | 2019-10-07 05:37 | XMS REPORT ---
Author Author Jailene ALVES Organization [facility] Address [address] [place] [address] Care Team Providers Care Kitchen Utility Associate Name Role Phone JOSELYN DARYL Unavailable PROBLEMS Type Condition ICD9-CM Code XBY13-HV Code Onset Dates Condition S tatus SNOMED Code Problem Hives L50.9 Active 464702549 Problem Desire for Z31.9 Active 794532276 Problem Iron deficiency anemia secondary to inadequate d ietary iron intake D50.8 Active 250594803 Problem Generalized anxiety disorder F41.1 A ctive 62402656 Problem Primary insomnia F51.01 Active 397 2004 Problem Amenorrhea N91.2 Active 39646961 Problem Unspecified mood [affective] disorder F39 Active [id number] ALLERGIES No Information ENCOUNTERS Encounter Location Date Diagnosis [facility] [address] [facility] [id number] [address] [place] [id number] Jan, Sore throat J02.9 ; Strep th roat J02.0 ; BMI 40.0-44.9, adult Z68.41 ; Dysuria R30.0 and Acute cystitis with hematuria N30.01 [facility] [address] [facility] [id number] [address] [place] [id number] Jan, [facility] [address] [place] [id number] [address] [place] [id number] December, Abnormal MRI of head R93.0 [facility] [address] [place] [id number] [address] [place] [address] December, Subcutaneous nodules R22.9 ; Syncope, unspecified syncope type R55 ; Abnormal MRI of head R93.0 and Iron deficiency anemia secondary to inadequate dietary iron intake D50.8 [facility] [address] [place] [id number] [address] [place] [address] December, [place] [address] [place] [id number] [address] [place] [address] December, Iron deficiency anemia secon chuck to inadequate dietary iron intake D50.8 and BMI 40.0-44.9, adult Z68.41 [facility] [address] [place] [id number] [address] [place] [address] Nov, Gastroenteritis K52.9 [place] [address] [address] Nov, [place] [address] [address] Nov, Bilateral hand swelling M79. 89 ; Amenorrhea N91.2 ; Desire for Z31.9 ; Amenorrhea, unspecified N91.2 ; Bilateral swelling of feet M79.89 ; Rash R21 and Iron deficiency anemia, unspecified iron deficiency anemia type D50.9 [place] [address] [place] [id number] [address] [place] [address] Nov, Bilateral hand swelling M79. 89 ; Bilateral swelling of feet M79.89 and Rash R21 [place] [address] [place] [id number] [address] [place] [address] Sep, Desire for Z31.9 a nd Amenorrhea N91.2 [facility] [id number] [place] [address] Aug, Scabies B86 [place] [address] [place] [id number] [address] [place] [address] Aug, Amenorrhea, unspecified N91. 2 [place] [address] [address] Aug, Amenorrhea, unspecified N91. 2 [place] [address] [place] [id number] [address] [place] [address] Aug, Amenorrhea N91.2 and Iron de ficiency anemia, unspecified iron deficiency anemia type D50.9 [facility] [address] [facility] [id number] [address] [place] [address] Aug, Iron deficiency anemia mateusz woods to inadequate dietary iron intake D50.8 ; Amenorrhea N91.2 ; Generalized anxiety disorder F41.1 ; Unspecified mood [affective] disorder F39 and Nausea R11.0 [facility] [address] [facility] [id number] [address] [place] [id number] Jul, Non-intractable vomiting wit h nausea, unspecified vomiting type R11.2 and Pleurisy R09.1 [facility] [address] [facility] [id number] [address] [place] [address] Jul, [facility] [address] [facility] [id number] [address] [place] [address] Jun, Unspecified mood [affective] disorder F39 [place] [address] [facility] [id number] [address] [place] [phone] Jun, Unspecified mood [affective] disorder F39 and Generalized anxiety disorder F41.1 [facility] [address] [facility] [id number] [address] [place] [address] May, Bilious vomiting with nausea R11.14 [facility] [address] [facility] [id number] [address] [place] [address] May, Unspecified mood [affective] disorder F39 ; Generalized anxiety disorder F41.1 and Iron deficiency anemia, unspecified iron deficiency anemia type D50.9 [facility] [address] [facility] [id number] [address] [place] [address] Apr, Unspecified mood [affective] disorder F39 [facility] [address] [facility] [id number] [address] [place] [phone] Apr, Iron deficiency anemia, unsp ecified iron deficiency anemia type D50.9 [facility] [address] [facility] [id number] [address] [place] [phone] Apr, Iron deficiency anemia, unsp ecified iron deficiency anemia type D50.9 [facility] [address] [facility] [id number] [address] [place] [id number] 18 Apr, 2017 Unspecified mood [affective] disorder F39 [facility] [address] [facility] [id number] [address] [place] [phone] 07 Apr, 2017 Abnormal CBC R79.89 [facility] [address] [facility] [id number] [address] [place] [phone] 07 Apr, 2017 Abnormal CBC R79.89 [facility] [address] [facility] [id number] [address] [place] [address] 05 Apr, 2017 Encounter to establish care with new doctor Z76.89 ; Unspecified mood [affective] disorder F39 and Primary insomnia F51.01 [facility] [address] [facility] [id number] [address] [place] [phone] Mar, Unspecified mood [affective] disorder F39 and Generalized anxiety disorder F41.1 [facility] [address] [place] [id number] [address] [place] [address] Mar, Sore throat J02.9 and Strep pharyngitis J02.0 [facility] [id number] [place] [id number] Feb, Dental examination Z01.20 [facility] [id number] [place] [id number] Jan, Encounter for dental examina tion Z01.20 [facility] [address] [place] [id number] [address] [place] [phone] Nov, Fever, unspecified R50.9 and Acute nasopharyngitis J00 [facility] [address] [place] [id number] [address] [place] [phone] 18 Sep, 2015 Abdominal pain, acute, right upper quadrant 789.01 [facility] [address] [place] [id number] [address] [place] [phone] 10 Sep, 2015 [facility] [address] [place] [id number] [address] [place] [phone] Aug, Irritable bowel syndrome wit h diarrhea K58.0 [facility] [address] [place] [id number] [place] [address] Aug, Urinary tract infection, sit e not specified N39.0 and Back pain M54.9 [facility] [address] [place] [id number] [address] [place] [address] Mar, Abdominal pain, acute, right upper quadrant 789.01 [facility] [address] [place] [id number] [place] [address] Mar, [facility] [address] [address] Mar, Nausea 787.02 and Abdominal pain, acute, right upper quadrant 789.01 [facility] [address] [address] Mar, Nausea 787.02 and Abdominal pain 789.00 [facility] [address] [place] [id number] [address] [place] [address] Mar, Nausea 787.02 [facility] [address] [place] [id number] [address] [place] [phone] Jan, Amenorrhea 626.0 [facility] [address] [place] [id number] [address] [place] [phone] Jan, Amenorrhea 626.0 and Obesity 278.00 [facility] [address] [place] [id number] [address] [place] [address] December, Amenorrhea 626.0 and Cough 7 86.2 [facility] [address] [place] [id number] [address] [place] [phone] Nov, [facility] [address] [place] [id number] [address] [place] [phone] Nov, [facility] [address] [place] [id number] [address] [place] [phone] May, [facility] [address] [id number] [address] [place] [address], [place] [address] May, [facility] [address] [id number] [address] [place] [address], [place] [address] Mar, [facility] [address] [id number] [address] [place] [address], [place] [address] Mar, [facility] [address] [id number] [address] [place] [address], [place] [address] Mar, [facility] [address] [id number] [address] [place] [address], [place] [address] Mar, [facility] [address] [id number] [address] [place] [address], [place] [address] Mar, [facility] [address] [id number] [address] [place] [address], [place] [address] Mar, [facility] [address] [id number] [address] [place] [address], [place] [address] Mar, [facility] [address] [id number] [address] [place] [address], [place] [address] Mar, [facility] [address] [id number] [address] [place] [address], [place] [address] Mar, [facility] [address] [id number] [address] [place] [address], [place] [address] Mar, [facility] [address] [id number] [address] [place] [address], [place] [address] Mar, [facility] [address] [id number] [address] [place] [address], [place] [address] Mar, [facility] [address] [id number] [address] [place] [address], [place] [address] Mar, [facility] [address] [id number] [address] [place] [address], [place] [address] Mar, [facility] [address] [id number] [address] [place] [address], [place] [address] Mar, 2013 [facility] [address] [id number] [address] [place] [address], [place] [address] Feb, 2013 [facility] [address] [id number] [address] [place] [address], [place] [address] Feb, 2013 [facility] [address] [id number] [address] [place] [address], [place] [address] Feb, 2013 [facility] [address] [id number] [address] [place] [address], [place] [address] Feb, 2013 [facility] [address] [id number] [address] [place] [address], [place] [address] Feb, 2013 [facility] [address] [id number] [address] [place] [address], [place] [address] Feb, 2013 [facility] [address] [id number] [address] [place] [address], [place] [address] Feb, 2013 [facility] [address] [id number] [address] [place] [address], [place] [address] Feb, 2013 [facility] [address] [id number] [address] [place] [address], [place] [address] Feb, 2013 [facility] [address] [id number] [address] [place] [address], [place] [address] Feb, 2013 [facility] [address] [id number] [address] [place] [address], [place] [address] Feb, 2013 [facility] [address] [id number] [address] [place] [address], [place] [address] Feb, 2013 [facility] [address] [id number] [address] [place] [address], [place] [address] Feb, 2013 [facility] [address] [id number] [address] [place] [address], [place] [address] Feb, 2013 [facility] [address] [id number] [address] [place] [address], [place] [address] Feb, [facility] [address] [id number] [facility] [place] [address] Jan, [facility] [address] [id number] [facility] [place] [address] Jan, [facility] [address] [id number] [facility] [place] [address] Jan, [facility] [address] [id number] [address] [place] [address], [place] [address] Jan, [facility] [address] [id number] [address] [place] [address], [place] [address] Jan, [facility] [address] [id number] [address] [place] [address], [place] [address] Jan, [facility] [address] [id number] [address] [place] [address], [place] [address] Jan, [facility] [address] [id number] [address] [place] [address], [place] [address] Jan, [facility] [address] [id number] [address] [place] [address], [place] [address] Jan, [facility] [address] [id number] [address] [place] [address], [place] [address] Jan, [facility] [address] [id number] [address] [place] [address], [place] [address] Jan, [facility] [address] [id number] [address] [place] [address], [place] [address] Jan, [facility] [address] [id number] [address] [place] [address], [place] [address] Jan, [facility] [address] [id number] [address] [place] [address], [place] [address] December, [facility] [address] [id number] [address] [place] [address], [place] [address] December, [facility] [address] [id number] [address] [place] [address], [place] [address] December, [facility] [address] [id number] [facility] [place] [address] December, [facility] [address] [id number] [address] [place] [address], [place] [address] December, [facility] [address] [id number] [address] [place] [address], [place] [address] December, [facility] [address] [id number] [address] [place] [address], [place] [address] December, [facility] [address] [id number] [address] [place] [address], [place] [address] December, [facility] [address] [id number] [address] [place] [address], [place] [address] December, [facility] [address] [id number] [address] [place] [address], [place] [address] December, [facility] [address] [id number] [address] [place] [address], [place] [address] December, [facility] [address] [id number] [address] [place] [address], [place] [address] December, [facility] [address] [id number] [address] [place] [address], [place] [address] Nov, [facility] [address] [id number] [address] [place] [address], [place] [address] Nov, [facility] [address] [id number] [address] [place] [address], [place] [address] Oct, [facility] [address] [id number] [address] [place] [address], [place] [address] Oct, [facility] [address] [id number] [address] [place] [address], [place] [address] Oct, [facility] [address] [id number] [address] [place] [address], [place] [address] Oct, [facility] [address] [id number] [facility] [place] [address] 19 Oct, 2013 [facility] [address] [id number] [facility] [place] [address] 19 Oct, 2013 [facility] [address] [id number] [facility] [place] [address] 19 Oct, 2013 [facility] [address] [id number] [facility] [place] [address] 19 Oct, 2013 [facility] [address] [id number] [address] [place] [address], [place] [address] 18 Oct, 2013 [facility] [address] [id number] [address] [place] [address], [place] [address] 08 Oct, 2013 [facility] [address] [id number] [address] [place] [address], [place] [address] 07 Oct, 2013 [facility] [address] [id number] [address] [place] [address], [place] [address] 06 Oct, 2013 [facility] [address] [id number] [address] [place] [address], [place] [address] 06 Oct, 2013 [facility] [address] [id number] [address] [place] [address], [place] [address] 05 Oct, 2013 [facility] [address] [id number] [address] [place] [address], [place] [address] 05 Oct, 2013 [facility] [address] [id number] [address] [place] [address], [place] [address] 05 Oct, 2013 [facility] [address] [id number] [address] [place] [address], [place] [address] 05 Oct, 2013 [facility] [address] [id number] [address] [place] [address], [place] [address] Sep, [facility] [address] [id number] [address] [place] [address], [place] [address] Sep, [facility] [address] [id number] [address] [address] Sep, [facility] [address] [id number] [address] [place] [address], [place] [address] Jun, [facility] [address] [id number] [address] [place] [address], [place] [address] Jun, [facility] [address] [id number] [address] [place] [address], [place] [address] Jun, [facility] [address] [id number] [address] [place] [address] Jun, [facility] [address] [id number] [address] [place] [address], [place] [address] Jun, [facility] [address] [id number] [address] [place] [address], [place] [address] Jun, [facility] [address] [id number] [address] [place] [address], [place] [address] May, [facility] [address] [id number] [address] [place] [address], [place] [address] May, [facility] [address] [id number] [address] [place] [address], [place] [address] May, [facility] [address] [id number] [address] [place] [address] May, [facility] [address] [id number] [address] [place] [address] May, [facility] [address] [id number] [address] [place] [address] May, [facility] [address] [id number] [address] [place] [address], [place] [address] Apr, [facility] [address] [id number] [address] [place] [address], [place] [address] Apr, [facility] [address] [id number] [address] [place] [address], [place] [address] Apr, [facility] [address] [id number] [address] [place] [address], [place] [address] 20 Sep, 2012 [facility] [address] [id number] [address] [place] [address], [place] [address] 19 Sep, 2012 [facility] [address] [id number] [address] [place] [address], [place] [address] 17 Apr, 2012 [facility] [address] [id number] [address] [place] [address], [place] [address] 13 Apr, 2012 [facility] [address] [id number] [address] [place] [address], [place] [address] 11 Apr, 2012 [facility] [address] [id number] [address] [place] [address], [place] [address] 09 Apr, 2013 [facility] [address] [id number] [address] [place] [address], [place] [address] 05 Apr, 2013 [facility] [address] [id number] [address] [place] [address], [place] [address] Mar, [facility] [address] [id number] [address] [place] [address], [place] [address] Nov, [facility] [address] [id number] [address] [place] [address], [place] [address] Oct, [facility] [address] [id number] [address] [place] [address], [place] [address] Oct, [facility] [address] [id number] [address] [place] [address], [place] [address] Sep, [facility] [address] [id number] [address] [place] [address], [place] [address] May, [facility] [address] [id number] [address] [place] [address], [place] [address] May, [facility] [address] [id number] [address] [place] [address], [place] [address] May, [facility] [address] [id number] [address] [place] [address], [place] [address] May, [facility] [address] [id number] [address] [place] [id number] Apr, [facility] [address] [id number] [address] [place] [phone] Apr, [facility] [address] [id number] [address] [place] [phone] Mar, [facility] [address] [id number] [address] [place] [id number] Feb, [facility] [address] [id number] [address] [place] [phone] Jul, [facility] [address] [id number] [address] [place] [phone] Jul, [facility] [address] [id number] [address] [place] [phone] Jul, [facility] [address] [id number] [address] [place] [id number] December, [facility] [address] [id number] [address] [place] [phone] December, [facility] [address] [id number] [address] [place] [phone] Oct, IMMUNIZATIONS No Known Immunizations SOCIAL HISTORY Never Assessed REASON FOR VISIT Lab (walk-in) PLAN OF CARE VITAL SIGNS MEDICATIONS No Known Medications RESULTS Name Result Date Reference Range INSULIN LEVEL 2017-09-10 INSULIN 9.2 2.0-19.6 PROCEDURES Procedure Date Ordered Result Body Site LAB NOT BILLED BY [facility] Sep 10, 2017 VENIPUNCT, ROUTINE* Sep 10, 2017 INSTRUCTIONS MEDICATIONS ADMINISTERED No Known Medications MEDICAL (GENERAL) HISTORY Type Description Date Medical History anemia Medical History asthma Surgical History section x2 Surgical History hernia repair Hospitalization History surgeries Hospitalization History possible gallbladder problems Hospitalization History ER visit for UTI 09/12/15 Hospitalization History dizziness, blackout 12/28/2017
== END 2019-09-29 11:28 | disposition home or self-care (01) ==
LOC: EDUNIT# 08:03 → ER 08:04
DX: K52.9 Noninfective gastroenteritis and colitis, unspecified (principal); N39.0 Urinary tract infection, site not specified; F12.90 Cannabis use, unspecified, uncomplicated; Z88.8 Allergy status to other drugs, medicaments and biological substances; Z77.22 Contact with and (suspected) exposure to environmental tobacco smoke (acute) (chronic); Z82.49 Family history of ischemic heart disease and other diseases of the circulatory system
CPT/HCPCS: 36415; 74022; 74177; 80053; 80306; 81000; 82150; 83690; 84703; 85025; 85610; 85730; 87088; 96360

== ENCOUNTER 2019-10-16 10:30 | Outpatient (CLI) | payer MEDICAID ==
[~2019-10-16] VITALS: Ht 172 cm; Wt 125.0 kg
[~2019-10-16 10:30] MED LIST changes: +HYOS0.1283 SL; +LACT1CAP8 PO; -OMEP-280 PO; +OMEP20CA18 PO; +ONDA4TAB11 PO
== END 2019-10-16 10:59 | disposition home or self-care (01) ==
LOC: PREOP 10:30
PROVIDERS: ATTEND Surgery
DX: Z01.818 Encounter for other preprocedural examination (principal)

== ENCOUNTER 2019-12-17 06:05 | Outpatient (RCR) | payer MEDICAID | END 2020-03-16 | disposition home or self-care (01) | LOC: PREOP 06:05 → EDSTATUS 13:00 | PROVIDERS: ATTEND Surgery | DX: Z01.818 Encounter for other preprocedural examination (principal) ==

== ENCOUNTER 2020-12-08 17:39 | Emergency (ER) | payer MEDICAID ==
[~2020-12-08] VITALS: Ht 170.2 cm; Wt 119.3 kg
[2020-12-08 17:45] VITALS: BP 133/83
--- NOTE | 2020-12-08 18:09 | ED Upper Extremity ---
General Chief Complaint: Upper Extremity Stated Complaint: L WRIST PAIN Nursing Triage Note: PT ARRIVED BY PRIVATE VEHICLE WITH CHIEF COMPLAINT OF LEFT WRIST INJURY FROM FALL. PT WAS ALERT, ORIENTED X 4 AND AMBUALTORY. PT AMBUALTED TO FAST TRACK 3 WHERE HER VITALS WERE DONE. PT STATED ON SUNDAY SHE FELL (ONTO CARPET AT HOME) INJURING HER LEFT WRIST. SHE STATED THAT HER LEFT WRIST TO THUMB ARE IN PAIN WITH A SCORE OF 6 ON PAIN SCALE. PT TOOK TYLENOL AT NOON. ICE WAS APPLIED TO WRIST. PT HAS HAD HISTORY OF HERNIA REPAIR AND C-SECTIONS, BUT NO OTHER PAST MEDICAL HISTORY. PT VAPES, DENIES ALCOHOL USE, BUT SMOKES MARIJUANA. PT IS ALLERGIC TO ALY. LAST MENSTRAL WAS November. REPORT WAS GIVEN TO PROVIDER. Nursing Sepsis Screen: No Definite Risk Source: patient Exam Limitations: no limitations History of Present Illness Date Seen by Provider: Dec 08, 2020 Time Seen by Provider: 17:50 Initial Comments To ER with left wrist pain over the radial side after a fall onto outstretched arm on Sunday of this week. Onset: this evening Severity: moderate Pain/Injury Location: left wrist Method of Injury: fell Modifying Factors: Worse With Movement Allergies and Home Medications Allergies Coded Allergies: fexofenadine (Verified Allergy, Mild, RASH, 10/16/19) Patient Home Medication List Home Medication List Reviewed: Yes Review of Systems Constitutional: see HPI EENTM: see HPI Respiratory: no symptoms reported Cardiovascular: no symptoms reported Genitourinary: no symptoms reported Musculoskeletal: see HPI Skin: no symptoms reported Psychiatric/Neurological: No Symptoms Reported Past Nqrsklc-Tnqyto-Itrxkz Hx Patient Social History Alcohol Use: Denies Use Drug of Choice: THC Smoking Status: Current Everyday Smoker Type Used: Electronic/Vapor 2nd Hand Smoke Exposure: Yes Recent Infectious Disease Expo: No Recent Hopitalizations: No Immunizations Up To Date Tetanus Booster (TDap): Less than 5yrs PED Vaccines UTD: No Date of Influenza Vaccine: May 26, 2019 Seasonal Allergies Seasonal Allergies: Yes Past Medical History Surgeries: Yes ( X 2; UMBILICAL HERNIA REPAIR) Section Respiratory: Yes Asthma Currently Using CPAP: No Currently Using BIPAP: No Cardiac: No Neurological: Yes Concussion Reproductive Disorders: Yes (IRREGULAR PERIODS) Female Reproductive Disorders: Menstrual Problems Sexually Transmitted Disease: No HIV/AIDS: No Genitourinary: No Gastrointestinal: No Abdominal Hernia Musculoskeletal: No Endocrine: No HEENT: No (GLASSES/CONTACTS) Loss of Vision: Denies Hearing Impairment: Denies Cancer: No Psychosocial: Yes Depression Integumentary: No Blood Disorders: Yes (ANEMIA) Adverse Reaction/Blood Tranf: No (N/A) Family Medical History Asthma G8 BROTHER Congenital heart disease 19 MOTHER (heart murmur) Psychosocial problem 19 MOTHER Seizure disorder 19 MOTHER No Family History of: AIDS Abdominal aortic aneurysm [place]'s disease Alcoholism Alzheimer's disease Aphasia Arthritis Cancer of mouth Cardiovascular disease Cataracts Colon cancer Completed stroke Congenital disease Coronary thrombosis Cystic fibrosis Deafness or hearing loss Dementia Diabetes mellitus Drug abuse Dysphasia Fibrocystic disease of breast Gastroenteritis Glaucoma Headache disorder Hypercholesterolemia Hypertension Infertility Kidney disease Myocardial infarction Neoplasm Osteoporosis Parkinson's disease Prostate cancer Respiratory disorder Severe allergy Tuberculosis Visual disorder No Pertinent Family Hx Physical Exam Vital Signs Vital Signs - First Documented 12/08/20 17:45 Temp 36.1 Pulse 94 Resp 16 B/P (MAP) 133/83 (100) Pulse Ox 100 O2 Delivery Room Air Capillary Refill : Less Than 3 Seconds Height, Weight, BMI Height: 5'7.00" Weight: 265lbs. 0.0oz. 120.606471ld; 41.00 BMI Method:Stated General Appearance: WD/WN, no apparent distress Respiratory: no respiratory distress, no accessory muscle use Shoulder: normal inspection, non-tender Elbow/Forearm: normal inspection, non-tender Wrist: Yes normal inspection Hand: limited ROM, soft tissue tenderness Neurologic/Psychiatric: alert, normal mood/affect, oriented x 3 Skin: normal color, warm/dry Progress/Results/Core Measures Results/Orders My Orders Orders - HORACIO MARTINS APRN Wrist, Left, 3 Views Or More (12/08/20 18:03) Vital Signs/I&O 12/08/20 17:45 Temp 36.1 Pulse 94 Resp 16 B/P (MAP) 133/83 (100) Pulse Ox 100 O2 Delivery Room Air Blood Pressure Mean: 100 Departure Impression Primary Impression: Left wrist sprain Disposition: 01 HOME, SELF-CARE Condition: Stable Departure-Patient Inst. Decision time for Depature: 18:24 Referrals: [facility] (PCP/Family) Primary Care Physician Patient Instructions: Wrist Sprain ED Add. Discharge Instructions: 1. Wear the splint for the next few days until the pain subsides. Follow-up with your doctor later next week for recheck. All discharge instructions reviewed with patient and/or family. Voiced understanding. HORACIO MARTINS MANAGER GENERAL Dec 08, 2020 18:09
--- NOTE | 2020-12-08 18:25 | Diagnostic Imaging Report ---
EXAMINATION: Left wrist radiographs, 3 views. COMPARISON: None. HISTORY: 25-year-old female, left wrist pain after fall. FINDINGS: There is no identified acute fracture. Bone mineralization and alignment are unremarkable. There is no identified radiopaque foreign body. The joint spaces are well preserved. IMPRESSION: Unremarkable radiographs of the left wrist. Dictated by: Dictated on workstation # [id number]
== END 2020-12-08 18:35 | disposition home or self-care (01) ==
LOC: EDUNIT# 17:39 → ER 17:41
DX: S63.502A Unspecified sprain of left wrist, initial encounter (principal); J45.909 Unspecified asthma, uncomplicated; F17.210 Nicotine dependence, cigarettes, uncomplicated; Z88.8 Allergy status to other drugs, medicaments and biological substances; W01.0XXA Fall on same level from slipping, tripping and stumbling without subsequent striking against object, initial encounter
CPT/HCPCS: 73110

== ENCOUNTER 2021-04-29 14:43 | Emergency (ER) | payer MEDICAID ==
[~2021-04-29] VITALS: Ht 170.2 cm; Wt 120.2 kg
[~2021-04-29 14:43] MED LIST changes: -ARIP10TA17 PO; +ARIP10TA55 PO; +DOXY-311 PO; -DOXY100C42 PO
--- NOTE | 2021-04-29 16:26 | ED Cardiac General ---
History of Present Illness General Chief Complaint: Cardiac/General Problems Stated Complaint: ABNORMAL EKG Nursing Triage Note: PT AMBULATE TO TRIAGE WITHOUT DIFFICULTY AFTER BEING SENT FROM [facility] FOR AN ABNORMAL EKG. Source: patient Exam Limitations: no limitations (HORACIO MARTINS APRN) History of Present Illness Date Seen by Provider: Apr 29, 2021 Time Seen by Provider: 15:20 Initial Comments [facility] with chest tightness, syncope, lip numbness and shortness of breath that started at noon today. She felt very anxious at the time. She felt fine upon awakening this morning. No fever no chills no cough. She feels a little dizzy at this point. She just started a new job at [employer] today. Symptoms began at noon. She had an EKG done at [facility] which the machine interpreted as possible inferior infarct so she was referred to the emergency room. Timing/Duration: 4-6 hours Severity: mild Prior CP/Workup: no prior chest pain Modifying Factors: improves with antacids (HORACIO MARTINS APRN) Allergies and Home Medications Allergies Coded Allergies: fexofenadine (Verified Allergy, Mild, RASH, 10/16/19) Patient Home Medication List Home Medication List Reviewed: Yes (HORACIO MARTINS APRN) Review of Systems Review of Systems Constitutional: see HPI EENTM: No Symptoms Reported Respiratory: No Symptoms Reported Cardiovascular: No Symptoms Reported Gastrointestinal: No Symptoms Reported Genitourinary: No Symptoms Reported Musculoskeletal: no symptoms reported Skin: no symptoms reported Psychiatric/Neurological: No Symptoms Reported Endocrine: No Symptoms Reported Hematologic/Lymphatic: No Symptoms Reported (HORACIO MARTINS APRN) Past Pnbicdm-Ytdssb-Fpahsk Hx Patient Social History Tobacco Use?: No Smoking Status: Never a Smoker Use of E-Cig and/or Vaping dev: Yes E-Cig or Vaping type used: Nicotine Use of E-Cig and/or Vaping Christ: Current Everyday User Substance use?: Yes Substance type: Marijuana Substance frequency: Daily Alcohol Use?: No Pt feels they are or have been: No (HORACIO MARTINS APRN) Immunizations Up To Date Tetanus Booster (TDap): Less than 5yrs PED Vaccines UTD: No (HORACIO MARTINS APRN) Seasonal Allergies Seasonal Allergies: Yes (HORACIO MARTINS APRN) Past Medical History Surgeries: Yes ( X 2; UMBILICAL HERNIA REPAIR) Section Respiratory: Yes Asthma Currently Using CPAP: No Currently Using BIPAP: No Cardiac: No Neurological: Yes Concussion Reproductive Disorders: Yes (IRREGULAR PERIODS) Female Reproductive Disorders: Menstrual Problems Sexually Transmitted Disease: No HIV/AIDS: No Genitourinary: No Gastrointestinal: No Abdominal Hernia Musculoskeletal: No Endocrine: No HEENT: No (GLASSES/CONTACTS) Loss of Vision: Denies Hearing Impairment: Denies Cancer: No Psychosocial: Yes Depression Integumentary: No Blood Disorders: Yes (ANEMIA) Adverse Reaction/Blood Tranf: No (N/A) (HORACIO MARTINS APRN) Family Medical History Asthma G8 BROTHER Congenital heart disease 19 MOTHER (heart murmur) Psychosocial problem 19 MOTHER Seizure disorder 19 MOTHER No Family History of: AIDS Abdominal aortic aneurysm [place]'s disease Alcoholism Alzheimer's disease Aphasia Arthritis Cancer of mouth Cardiovascular disease Cataracts Colon cancer Completed stroke Congenital disease Coronary thrombosis Cystic fibrosis Deafness or hearing loss Dementia Diabetes mellitus Drug abuse Dysphasia Fibrocystic disease of breast Gastroenteritis Glaucoma Headache disorder Hypercholesterolemia Hypertension Infertility Kidney disease Myocardial infarction Neoplasm Osteoporosis Parkinson's disease Prostate cancer Respiratory disorder Severe allergy Tuberculosis Visual disorder No Pertinent Family Hx (HORACIO MARTINS APRN) Physical Exam Vital Signs Vital Signs - First Documented 04/29/21 04/29/21 15:10 17:01 Temp 36.9 Pulse 63 Resp 18 B/P (MAP) 131/81 (98) Pulse Ox 98 O2 Delivery Room Air (MAVIS,MAMTA K DO) Vital Signs Capillary Refill : Less Than 3 Seconds (HORACIO MARTINS APRN) Height, Weight, BMI Height: 5'7.00" Weight: 265lbs. 0.0oz. 120.586808oy; 41.00 BMI Method:Stated General Appearance: No Apparent Distress, WD/WN, Obese, Other (Alert and oriented no distress very pleasant) Neck: Full Range of Motion, Normal Inspection Respiratory: No Accessory Muscle Use, No Respiratory Distress Cardiovascular: Regular Rate, Rhythm, Normal Peripheral Pulses Gastrointestinal: Normal Bowel Sounds, Non Tender, Soft Neurologic/Psychiatric: Alert, Oriented x3 Skin: Normal Color, Warm/Dry (HORACIO MARTINS APRN) Progress/Results/Core Measures Results/Orders Lab Results Laboratory Tests Test 04/29/21 16:30 Range/Units White Blood Count 11.2 H 4.3-11.0 10^3/uL Red Blood Count 4.35 3.80-5.11 10^6/uL Hemoglobin 11.6 11.5-16.0 g/dL Hematocrit 37 35-52 % Mean Corpuscular Volume 85 80-99 fL Mean Corpuscular Hemoglobin 27 25-34 pg Mean Corpuscular Hemoglobin Concent 32 32-36 g/dL Red Cell Distribution Width 14.3 10.0-14.5 % Platelet Count 394 130-400 10^3/uL Mean Platelet Volume 9.8 9.0-12.2 fL Immature Granulocyte % (Auto) 0 % Neutrophils (%) (Auto) 55 42-75 % Lymphocytes (%) (Auto) 34 12-44 % Monocytes (%) (Auto) 7 0-12 % Eosinophils (%) (Auto) 4 0-10 % Basophils (%) (Auto) 1 0-10 % Neutrophils # (Auto) 6.1 1.8-7.8 10^3/uL Lymphocytes # (Auto) 3.7 1.0-4.0 10^3/uL Monocytes # (Auto) 0.8 0.0-1.0 10^3/uL Eosinophils # (Auto) 0.4 H 0.0-0.3 10^3/uL Basophils # (Auto) 0.1 0.0-0.1 10^3/uL Immature Granulocyte # (Auto) 0.0 0.0-0.1 10^3/uL Sodium Level 138 135-145 MMOL/L Potassium Level 3.5 L 3.6-5.0 MMOL/L Chloride Level 107 98-107 MMOL/L Carbon Dioxide Level 21 21-32 MMOL/L Anion Gap 10 5-14 MMOL/L Blood Urea Nitrogen 12 7-18 MG/DL Creatinine 0.77 0.60-1.30 MG/DL Estimat Glomerular Filtration Rate 91 BUN/Creatinine Ratio 16 Glucose Level 86 70-105 MG/DL Calcium Level 9.4 8.5-10.1 MG/DL Serum Test, Qualitative NEGATIVE NEGATIVE (MAMTA GAMBLE DO) Vital Signs/I&O 04/29/21 04/29/21 15:10 17:01 Temp 36.9 Pulse 63 81 Resp 18 17 B/P (MAP) 131/81 (98) 132/74 Pulse Ox 98 O2 Delivery Room Air Room Air (MAMTA GAMBLE DO) Blood Pressure Mean: 98 Departure Communication (Admissions) She was sent to ER with the EKG that was obtained at the walk-in clinic which shows a Q wave in lead III as well as lead II and aVF. These are about 1 mm deep and less than 1 mm in width. There are no ST segment changes and this is completely unchanged from her EKG in 2018. EKG obtained here shows sinus rhythm rate of 86 QRS of 93 ms, CA of 16 ms, QTC of 443 ms. No ectopy no ST segment change. (HORACIO MARTINS APRN) Impression Primary Impression: Anxiety Disposition: HOME, SELF-CARE Condition: Stable Departure-Patient Inst. Decision time for Depature: 16:25 (HORACIO MARTINS APRN) Referrals: [facility] [place] (PCP/Family) Primary Care Physician Patient Instructions: Anxiety, Adult (DC) Add. Discharge Instructions: . Return to ER for any concerns 2. Follow-up with your doctor next week for recheck. All discharge instructions reviewed with patient and/or family. Voiced understanding. Work/School Note: Work Release Form Date Seen in the Emergency Department: Apr 29, 2021 Return to Work: Apr 30, 2021 ATTENDING PHYSICIAN NOTE: I WAS PHYSICALLY PRESENT ER PHYSICIAN WHEN THIS PATIENT WAS IN ER, BUT I WAS NOT INVOLVED IN DECISION MAKING OR ANY CARE OF THIS PATIENT (MAMTA GAMBLE DO) HORACIO MARTINS APRN Apr 29, 2021 16:25 MAMTA GAMBLE DO May 03, 2021 14:57
[2021-04-29 16:42] LABS: BASOPHILS # (AUTO) 0.1 10^3/uL (0.0-0.1); BASOPHILS % (AUTO) 1 % (0-10); EOSINOPHILS # (AUTO) 0.4 10^3/uL (0.0-0.3); EOSINOPHILS % (AUTO) 4 % (0-10); HEMATOCRIT 37 % (35-52); HEMOGLOBIN 11.6 g/dL (11.5-16.0); LYMPHOCYTES # (AUTO) 3.7 10^3/uL (1.0-4.0); LYMPHOCYTES % (AUTO) 34 % (12-44); MEAN CORPUSCULAR HEMOGLOBIN 27 pg (25-34); MEAN CORPUSCULAR HGB CONC 32 g/dL (32-36); MEAN CORPUSCULAR VOLUME 85 fL (80-99); MEAN PLATELET VOLUME 9.8 fL (9.0-12.2); MONOCYTES # (AUTO) 0.8 10^3/uL (0.0-1.0); MONOCYTES % (AUTO) 7 % (0-12); NEUTROPHILS # (AUTO) 6.1 10^3/uL (1.8-7.8); NEUTROPHILS % (AUTO) 55 % (42-75); PLATELET COUNT 394 10^3/uL (130-400); WHITE BLOOD COUNT 11.2 10^3/uL (4.3-11.0)
[2021-04-29 16:53] LABS: POTASSIUM 3.5 MMOL/L (3.6-5.0)
[2021-04-29 16:54] LABS: CALCIUM 9.4 MG/DL (8.5-10.1)
[2021-04-29 16:58] LABS: CREATININE SERUM 0.77 MG/DL (0.60-1.30)
[2021-04-29 17:01] VITALS: BP 132/74
== END 2021-04-29 17:01 | disposition home or self-care (01) ==
LOC: EDUNIT# 14:43 → ER 14:45
DX: F41.9 Anxiety disorder, unspecified (principal); J45.909 Unspecified asthma, uncomplicated; E66.9 Obesity, unspecified; F17.290 Nicotine dependence, other tobacco product, uncomplicated; Z68.41 Body mass index [BMI] 40.0-44.9, adult; Z87.820 Personal history of traumatic brain injury
CPT/HCPCS: 36415; 80048; 84703; 85025; 93005

== ENCOUNTER 2022-11-18 01:11 | Observation (INO) | payer MEDICAID ==
[~2022-11-18] VITALS: Ht 170 cm; Wt 118.4 kg
[~2022-11-18 01:11] MED LIST changes: -DOXY-311 PO; +DOXY-444 PO
--- NOTE | 2022-11-18 01:43 | ED Abdominal Pain ---
General Chief Complaint: Abdominal/GI Problems Stated Complaint: LOWER RT SIDE OF STOMACH,NAUSEA,BLOATED Nursing Triage Note: Pt presents with c/o RLQ pain that woke her up from sleep at approx midnight tonight. She reports bloating over the past 2 days with constipation and nausea. Source of Information: Patient Exam Limitations: No Limitations History of Present Illness Date Seen by Provider: Nov 18, 2022 Time Seen by Provider: 01:34 Initial Comments Patient is a 27-year-old female who presents to the emergency room with a chief complaint of right lower quadrant abdominal pain that woke her from sleep at about midnight. Patient states she had slightly decreased appetite at dinner around 6 PM. She did have some pizza. She woke up with an achy pain that worsened to a sharp pain worse with movement and bumps in the road in the car on the way to the emergency room. No fevers or chills. She has had recent URI symptoms. She has been constipated but had a bowel movement this morning. Denies dysuria, urgency or frequency. No abnormal vaginal discharge. Last mens trual cycle was 2 weeks ago. She is not on control. She has had 2 prior C-sections and a hernia repair. Still has her appendix and gallbladder. Has not taken anything for the pain. Complains of feeling very nauseous right now. Rates her pain at a "5 or 6". Timing/Duration: 1-3 Hours Severity/Quality: Moderate ("5 or 6") Location: RLQ Radiation: Back (Right flank) Activities at Onset: Sleeping Modifying Factors: Worsens With Movement Associated Symptoms: Nausea/Vomiting (Nausea without vomiting) Allergies and Home Medications Allergies Coded Allergies: fexofenadine (Verified Allergy, Mild, RASH, 10/16/19) Patient Home Medication List Home Medication List Reviewed: Yes Ciprofloxacin HCl (Ciprofloxacin HCl) 500 Mg Tablet, 500 MG PO BID Prescribed by: LEEROY BEAULIEU on 11/18/22 1209 Hydrocodone/Acetaminophen (Hydrocodone-Acetamin 5-325 mg) 5 Mg-325 Mg Tablet, 1 TAB PO Q4H PRN for PAIN-MODERATE (5-7) Prescribed by: LEEROY BEAULIEU on 11/18/22 120 Metronidazole (Metronidazole) 500 Mg Tablet, 500 MG PO BID Prescribed by: LEEROY BEAULIEU on 11/18/22 1209 Review of Systems Review of Systems Constitutional: see HPI EENTM: Nose Congestion Respiratory: Cough (Mild cough) Cardiovascular: No Symptoms Reported Gastrointestinal: Abdominal Pain, Constipated, Nausea Genitourinary: No Symptoms Reported Musculoskeletal: no symptoms reported Skin: no symptoms reported Psychiatric/Neurological: No Symptoms Reported All Other Systems Reviewed Negative Unless Noted: Yes Past Mkqmgvg-Inoxbq-Dhrwmu Hx Immunizations Up To Date Tetanus Booster (TDap): Less than 5yrs PED Vaccines UTD: No Influenza Vaccine Up-to-Date: No; Not Current Seasonal Allergies Seasonal Allergies: Yes Past Medical History Surgeries: Yes ( X 2; UMBILICAL HERNIA REPAIR) Section Respiratory: Yes Asthma Currently Using CPAP: No Currently Using BIPAP: No Cardiac: No Neurological: Yes Concussion Reproductive Disorders: Yes (IRREGULAR PERIODS) Female Reproductive Disorders: Menstrual Problems Sexually Transmitted Disease: No HIV/AIDS: No Genitourinary: No Gastrointestinal: No Abdominal Hernia Musculoskeletal: No Endocrine: No HEENT: No (GLASSES/CONTACTS) Loss of Vision: Denies Hearing Impairment: Denies Cancer: No Psychosocial: Yes Depression Integumentary: No Blood Disorders: Yes (ANEMIA) Adverse Reaction/Blood Tranf: No (N/A) Family Medical History Asthma G8 BROTHER Congenital heart disease 19 MOTHER (heart murmur) Psychosocial problem 19 MOTHER Seizure disorder 19 MOTHER No Family History of: AIDS Abdominal aortic aneurysm [place]'s disease Alcoholism Alzheimer's disease Aphasia Arthritis Cancer of mouth Cardiovascular disease Cataracts Colon cancer Completed stroke Congenital disease Coronary thrombosis Cystic fibrosis Deafness or hearing loss Dementia Diabetes mellitus Drug abuse Dysphasia Fibrocystic disease of breast Gastroenteritis Glaucoma Headache disorder Hypercholesterolemia Hypertension Infertility Kidney disease Myocardial infarction Neoplasm Osteoporosis Parkinson's disease Prostate cancer Respiratory disorder Severe allergy Tuberculosis Visual disorder No Pertinent Family Hx Physical Exam Vital Signs Vital Signs - First Documented 11/18/22 01:24 Temp 36.0 Pulse 80 Resp 16 B/P (MAP) 134/87 (103) Capillary Refill : Less Than 3 Seconds Height/Weight/BMI Height: 5'7.00" Weight: 265lbs. 0.0oz. 120.535592ev; 43.00 BMI Method:Stated General Appearance: WD/WN, no apparent distress, obese HEENT: PERRL/EOMI Neck: full range of motion Respiratory: lungs clear, normal breath sounds, no respiratory distress, no accessory muscle use Cardiovascular: regular rate, rhythm Gastrointestinal: soft, guarding, rebound, tenderness, other (Mild Liban Zuniga. Positive psoas) Extremities: non-tender, normal inspection Neurologic/Psychiatric: alert, normal mood/affect, oriented x 3 Skin: normal color, warm/dry Progress/Results/Core Measures Results/Orders Lab Results Laboratory Tests Test 11/18/22 01:40 11/18/22 01:45 Range/Units Urine Color YELLOW Urine Clarity CLEAR Urine pH 6.0 5-9 Urine Specific [place] 1.025 H 1.016-1.022 Urine Protein NEGATIVE NEGATIVE Urine Glucose (UA) NEGATIVE NEGATIVE Urine Ketones NEGATIVE NEGATIVE Urine Nitrite NEGATIVE NEGATIVE Urine Bilirubin NEGATIVE NEGATIVE Urine Urobilinogen 0.2 < = 1.0 MG/DL Urine Leukocyte Esterase NEGATIVE NEGATIVE Urine RBC (Auto) NEGATIVE NEGATIVE Urine RBC NONE /HPF Urine WBC NONE /HPF Urine Squamous Epithelial Cells 2-5 /HPF Urine Crystals NONE /LPF Urine Bacteria NEGATIVE /HPF Urine Casts NONE /LPF Urine Mucus NEGATIVE /LPF Urine Culture Indicated NO White Blood Count 13.9 H 4.3-11.0 10^3/uL Red Blood Count 4.19 3.80-5.11 10^6/uL Hemoglobin 11.3 L 11.5-16.0 g/dL Hematocrit 35 35-52 % Mean Corpuscular Volume 84 80-99 fL Mean Corpuscular Hemoglobin 27 25-34 pg Mean Corpuscular Hemoglobin Concent 32 32-36 g/dL Red Cell Distribution Width 14.1 10.0-14.5 % Platelet Count 433 H 130-400 10^3/uL Mean Platelet Volume 9.4 9.0-12.2 fL Immature Granulocyte % (Auto) 0 % Neutrophils (%) (Auto) 68 42-75 % Lymphocytes (%) (Auto) 21 12-44 % Monocytes (%) (Auto) 7 0-12 % Eosinophils (%) (Auto) 3 0-10 % Basophils (%) (Auto) 1 0-10 % Neutrophils # (Auto) 9.4 H 1.8-7.8 10^3/uL Lymphocytes # (Auto) 3.0 1.0-4.0 10^3/uL Monocytes # (Auto) 1.0 0.0-1.0 10^3/uL Eosinophils # (Auto) 0.4 H 0.0-0.3 10^3/uL Basophils # (Auto) 0.1 0.0-0.1 10^3/uL Immature Granulocyte # (Auto) 0.0 0.0-0.1 10^3/uL Sodium Level 140 135-145 MMOL/L Potassium Level 3.8 3.6-5.0 MMOL/L Chloride Level 108 H 98-107 MMOL/L Carbon Dioxide Level 22 21-32 MMOL/L Anion Gap 10 5-14 MMOL/L Blood Urea Nitrogen 7 7-18 MG/DL Creatinine 0.82 0.60-1.30 MG/DL Estimat Glomerular Filtration Rate 101 BUN/Creatinine Ratio 9 Glucose Level 86 70-105 MG/DL Calcium Level 9.8 8.5-10.1 MG/DL My Orders Orders - TONI HOWARD MD Ed Iv/Invasive Line Start (11/18/22 01:39) Cbc With Automated Diff (11/18/22 01:39) Basic Metabolic Panel (11/18/22 01:39) Urinalysis (11/18/22 01:39) Urine Bedside (11/18/22 01:39) Ns Iv 1000 Ml (Sodium Chloride 0.9%) (11/18/22 01:45) Ondansetron Injection (Zofran Injectio (11/18/22 01:45) Ketorolac Injection (Toradol Injection) (11/18/22 01:45) Ct Abd/Pelv W (Appendicitis) (11/18/22 02:20) Iohexol Injection (Omnipaque 350 Mg/Ml 1 (11/18/22 03:15) Received Contrast (Hold Metformin- Contr (11/18/22 03:15) Ns (Ivpb) (Sodium Chloride 0.9% Ivpb Bag (11/18/22 03:15) Piperacillin Sodium/Tazobactam (Zosyn Vi (11/18/22 03:30) Fentanyl Inj (Sublimaze Injection) (11/18/22 05:15) Medications Given in ED Current Medications Medications Dose Ordered Sig/Harjinder Route Start Time Stop Time Status Last Admin Dose Admin Fentanyl Citrate 25 mcg ONCE ONCE IVP 11/18/22 05:15 11/18/22 05:16 11/18/22 05:12 25 MCG Iohexol 100 ml ONCE ONCE IV 11/18/22 03:15 11/18/22 03:16 DC 11/18/22 03:14 100 ML Ketorolac Tromethamine 15 mg ONCE ONCE IVP 11/18/22 01:45 11/18/22 01:46 DC 11/18/22 01:53 15 MG Ondansetron HCl 8 mg ONCE ONCE IVP 11/18/22 01:45 11/18/22 01:46 DC 11/18/22 01:52 8 MG Piperacillin Sod/ Tazobactam Sod 4.5 gm/Sodium Chloride 100 ml @ 200 mls/hr ONCE ONCE IV 11/18/22 03:30 11/18/22 04:00 DC 11/18/22 03:41 200 MLS/HR Sodium Chloride 100 ml ONCE ONCE IV 11/18/22 03:15 11/18/22 03:16 DC 11/18/22 03:14 80 ML Vital Signs/I&O 11/18/22 01:24 Temp 36.0 Pulse 80 Resp 16 B/P (MAP) 134/87 (103) Blood Pressure Mean: 103 Progress Progress Note : Time: 04:55 Progress Note Patient seen and evaluated by me, physical exam, CBC, basic metabolic panel, urinalysis obtained. CT scan of the abdomen and pelvis appendicitis protocol obtained. Physical exam pertinent for obese female in mild distress due to abdominal pain. Heart is regular, lungs are clear, abdomen is soft with tenderness, rebound, involuntary guarding, mild Rovsing's, positive psoas. Hypoactive bowel sounds. Tenderness over McBurney's point. Differential diagnosis based on history and physical exam, ovarian cyst, torsion, acute appendicitis, mesenteric adenitis. Labs independently reviewed by me, CBC pertinent for leukocytosis. Basic metabolic panel is negative. test negative, urinalysis negative for any evidence of infection or hematuria. CT scan of the abdomen and pelvis per [facility] radiologist negative for any acute abnormality. Patient is treated with IV fluids, Toradol, Zofran. She states her pain improved down to a "4". She is reexamined at this time and has the exact same exam. She has discomfort in the right lower quadrant with ambulation. She is very nauseous. Will discuss with Dr. WILSON on for general surgery as my suspicion for acute appendicitis is still quite high. I did go ahead and give her 4.5 g of Zosyn empirically. Diagnostic Imaging Diagonstic Imaging: CT Comments [facility], [place] NAME: TRUE [facility]FIELD [facility] REC#: [id number] PT STATUS: REG ER : 1995 PHYSICIAN: TONI HOWARD MD ADMIT DATE: 11/18/22/ER Signed Date of Exam:11/18/22 CT ABD/PELV W (APPENDICITIS) CT ABD/PELV W (APPENDICITIS) TECHNIQUE: Multiple contiguous axial images were obtained through the abdomen and pelvis after administration of intravenous contrast. All CT scans use one or more of the following dose optimizing techniques: automated exposure control, MA and/or KvP adjustment based on patient size and exam type or iterative reconstruction. INDICATION: Right lower quadrant pain COMPARISON: 09/29/2019 FINDINGS: Lower chest: The lung bases are clear. No pericardial or pleural effusion. Peritoneum: No free intraperitoneal air or fluid. Liver and biliary system: The liver is normal. Gallbladder is contracted without radiopaque gallstones. No biliary duct dilatation. Spleen and Pancreas: Spleen is normal. The pancreas enhances normally without mass lesion or peripancreatic inflammatory changes. Adrenals: Normal. tract: The kidneys enhance normally without suspicious mass or obstruction. Urinary bladder is distended without wall thickening. No renal or ureteral stones. The uterus is normal in appearance. Both ovaries appear physiologic. GI tract: Stomach is decompressed. No bowel obstruction. No pericolonic inflammatory changes. Normal appendix. Vasculature and Lymph nodes: Normal caliber aorta. No abdominal or pelvic lymphadenopathy. Musculoskeletal: No concerning osseous lesion. IMPRESSION: 1. No acute obstructive or inflammatory process. The appendix is normal. 2. No urinary tract stones. Dictated by: Dictated on workstation # [id number] Dict: 11/18/22430 Trans: 11/18/22434 [facility] [id number] Interpreted by: DIANE MILLIGAN MD Electronically signed by: DIANE MILLIGAN MD 11/18/22434 Departure Communication (Admissions) Time/Spoke to Admitting Phy: 05:[address] Wilson - it; may have clear liquids Impression Primary Impression: Abdominal pain Qualified Codes: R10.31 - Right lower quadrant pain Disposition: ADMITTED INPATIENT Condition: Stable Admissions Decision to Admit Reason: Admit from ER (General) Decision to Admit/Date: Nov 18, 2022 Time/Decision to Admit Time: 05:15 Departure-Patient Inst. Referrals: [facility] (PCP/Family) Primary Care Physician Scripts Hydrocodone/Acetaminophen (Hydrocodone-Acetamin 5-325 mg) 5 Mg-325 Mg Tablet 1 TAB PO Q4H PRN for PAIN-MODERATE (5-7), #20 TAB Prov: LEEROY BEAULIEU [employer] 11/18/22 Metronidazole (Metronidazole) 500 Mg Tablet 500 MG PO BID, #14 TAB Prov: LEEROY BEAULIEU [employer] TE[employer] 11/18/22 Ciprofloxacin HCl (Ciprofloxacin HCl) 500 Mg Tablet 500 MG PO BID, #14 TAB Prov: LEEROY BEAULIEU [employer] TE[employer] 11/18/22 Copy Copies To 1: MACK FARAH KATHRYN M MD Nov 18, 2022 01:43
[2022-11-18] MEDS ORDERED: ONDANSETRON 4 MG/2 ML (SDV) Z0FRAN IVP ONE (01:45)
[2022-11-18] MEDS ORDERED: NS IV 1000 ML 1,000 ML IV SCH ×2 (01:45→06:00)
[2022-11-18] MEDS ORDERED: KETOROLAC 15 MG/ML VIAL IVP ONE (01:45)
[2022-11-18 01:52] LABS: BILIRUBIN,URINE NEGATIVE (NEGATIVE); CLARITY,URINE CLEAR; COLOR,URINE YELLOW; GLUCOSE, URINE (UA) NEGATIVE (NEGATIVE); KETONES,URINE NEGATIVE (NEGATIVE); LEUKOCYTE ESTERASE ,URINE NEGATIVE (NEGATIVE); NITRITE,URINE NEGATIVE (NEGATIVE); PROTEIN,URINE NEGATIVE (NEGATIVE)
[2022-11-18 01:57] LABS: BASOPHILS # (AUTO) 0.1 10^3/uL (0.0-0.1); BASOPHILS % (AUTO) 1 % (0-10); EOSINOPHILS # (AUTO) 0.4 10^3/uL (0.0-0.3); EOSINOPHILS % (AUTO) 3 % (0-10); HEMATOCRIT 35 % (35-52); HEMOGLOBIN 11.3 g/dL (11.5-16.0); LYMPHOCYTES % (AUTO) 21 % (12-44); MEAN CORPUSCULAR HEMOGLOBIN 27 pg (25-34); MEAN CORPUSCULAR HGB CONC 32 g/dL (32-36); MEAN CORPUSCULAR VOLUME 84 fL (80-99); MEAN PLATELET VOLUME 9.4 fL (9.0-12.2); MONOCYTES % (AUTO) 7 % (0-12); NEUTROPHILS # (AUTO) 9.4 10^3/uL (1.8-7.8); NEUTROPHILS % (AUTO) 68 % (42-75); PLATELET COUNT 433 10^3/uL (130-400); WHITE BLOOD COUNT 13.9 10^3/uL (4.3-11.0)
[2022-11-18 01:59] LABS: BACTERIA,URINE NEGATIVE /HPF
[2022-11-18 02:02] LABS: POTASSIUM 3.8 MMOL/L (3.6-5.0)
[2022-11-18 02:04] LABS: CALCIUM 9.8 MG/DL (8.5-10.1)
[2022-11-18 02:08] LABS: CREATININE SERUM 0.82 MG/DL (0.60-1.30)
[2022-11-18] MEDS ORDERED: IOHEXOL 350 MG/ML 100 ML (OMNIPAQUE 350) VIAL IV ONE (03:15)
[2022-11-18] MEDS ORDERED: NS 100 ML (IVPB) BAG IV ONE (03:15)
[2022-11-18] MEDS ORDERED: HOLD METFORMIN - RECEIVED CONTRAST 20 ML VIAL IV SCH (03:15)
[2022-11-18] MEDS ORDERED: PIPERACILLIN SODIUM/TAZOBACTAM 4.5 GM in NS (IVPB) 100 ML IV ONE (03:30)
--- NOTE | 2022-11-18 04:36 | Diagnostic Imaging Report ---
CT ABD/PELV W (APPENDICITIS) TECHNIQUE: Multiple contiguous axial images were obtained through the abdomen and pelvis after administration of intravenous contrast. All CT scans use one or more of the following dose optimizing techniques: automated exposure control, MA and/or KvP adjustment based on patient size and exam type or iterative reconstruction. INDICATION: Right lower quadrant pain COMPARISON: 09/29/2019 FINDINGS: Lower chest: The lung bases are clear. No pericardial or pleural effusion. Peritoneum: No free intraperitoneal air or fluid. Liver and biliary system: The liver is normal. Gallbladder is contracted without radiopaque gallstones. No biliary duct dilatation. Spleen and Pancreas: Spleen is normal. The pancreas enhances normally without mass lesion or peripancreatic inflammatory changes. Adrenals: Normal. tract: The kidneys enhance normally without suspicious mass or obstruction. Urinary bladder is distended without wall thickening. No renal or ureteral stones. The uterus is normal in appearance. Both ovaries appear physiologic. GI tract: Stomach is decompressed. No bowel obstruction. No pericolonic inflammatory changes. Normal appendix. Vasculature and Lymph nodes: Normal caliber aorta. No abdominal or pelvic lymphadenopathy. Musculoskeletal: No concerning osseous lesion. IMPRESSION: 1. No acute obstructive or inflammatory process. The appendix is normal. 2. No urinary tract stones. Dictated by: Dictated on workstation # [id number]
[2022-11-18] MEDS ORDERED: fentaNYL INJ 100 MCG/2 ML AMP IVP ONE (05:15)
[2022-11-18 05:44] VITALS: BP 115/56
[2022-11-18] MEDS ORDERED: NS IV 1000 ML 1,000 ML ONE (05:48)
[2022-11-18] MEDS ORDERED: ONDANSETRON 4 MG/2 ML (SDV) Z0FRAN IV PRN (06:00)
[2022-11-18] MEDS ORDERED: fentaNYL INJ 100 MCG/2 ML AMP IV PRN (06:00)
[2022-11-18 07:37] VITALS: BP 113/61
[2022-11-18] MEDS ORDERED: PIPERACILLIN SODIUM/TAZOBACTAM 4.5 GM in NS (IVPB) 100 ML IV SCH (08:00)
[2022-11-18] MEDS ORDERED: NICOTINE 14 MG (NICODERM) PATCH TD SCH (09:00)
[2022-11-18 11:15] VITALS: BP 123/83
[2022-11-18] MEDS ORDERED: ACHD5005 PO (12:09)
[2022-11-18] MEDS ORDERED: CIPR500T5 PO (12:09)
[2022-11-18] MEDS ORDERED: METR-145 PO (12:09)
--- NOTE | 2022-11-18 12:10 | Discharge Inst-Surgical ---
D/C Lap Instructions-KIDO Reconcile Patient Problems Problems Reviewed?: Yes New, Converted, or Re-Newed RX: RX on Chart Follow Up Appt as needed Activity as tolerated No driving while on pain medications Regular Diet Symptoms to Report: Fever over 101 degree F, Nausea/Vomiting Infection Signs and Symptoms to report: Increased redness, Foul odor of wound, Increased drainage If any problems/questions: Contact your physician or go to Emergency Room LEEROY BEAULIEU APRN Nov 18, 2022 12:10
--- NOTE | 2022-11-18 14:14 | HISTORY AND PHYSICAL ---
DATE OF SERVICE: 11/18/2022 ATTENDING PRIMARY CARE PHYSICIAN: [facility]. INDICATION: The patient is a 27-year-old female who presented to the Emergency Department early this morning with complaints of right lower abdominal pain that awoken her from sleep around midnight. She did report that 2 days prior to that, she had issues with bloating as well as constipation and nausea. She also reported a decreased appetite. She did wake up around midnight with achy pain that worsened to a sharp pain and was worse with movement and bumps. On her way to the emergency room, she denied any fever or chills. She reports that she does still have her appendix and gallbladder. She did undergo workup in the emergency room and was found to have a leukocytosis of 13.9. She underwent a CT scan, however, was unremarkable. She was admitted for observation. She does report this morning that her pain is somewhat better; however, still continued to the right lower abdominal quadrant. She denies any fever or chills and reports that her nausea has resolved. She is tolerating a clear liquid diet. MEDICAL HISTORY: Anemia, asthma, concussion. SURGICAL HISTORY: section x2, umbilical hernia repair. ALLERGIES: Fexofenadine. MEDICATIONS: None. SOCIAL HISTORY: Negative for tobacco smoke. Negative for alcohol. FAMILY HISTORY: Brother with asthma. Mother, heart murmur, seizures. VITAL SIGNS: Temperature 36.6 degrees Celsius, pulse 76, respirations 16, blood pressure 123/83, pulse ox 96% on room air. REVIEW OF SYSTEMS: This is a well-nourished female in no acute distress. She is not experiencing any shortness of breath or difficulty breathing. No chest pain, palpitations or diaphoresis. She did report episodes of nausea, which have now resolved; however, no vomiting. She does still report pain in the right lower abdominal quadrant, which has improved. No diarrhea, but does report constipation as well as abdominal bloating for the last couple of days. No red blood per rectum. No dark tarry stools. No fever or chills. No recent inadvertent weight loss. All other review of systems negative. PHYSICAL EXAM: CHEST: Clear. Good breath sounds bilaterally. HEART: Regular, no murmurs. EXTREMITIES: No lower extremity edema. Negative Homans sign. HEENT: No scleral icterus. No cervical lymphadenopathy. ABDOMEN: Soft, nondistended. There is some tenderness with deep palpation right lower abdominal quadrant. No peritoneal signs. SKIN: Warm, dry and pink. NEUROLOGIC: Awake, alert and oriented x3. A 27-year-old female with right lower quadrant abdominal pain. She did have a leukocytosis; however, her CT scan was normal. At this time, it was discussed with her about potential early appendicitis. It was discussed with her about proceeding with conservative management with antibiotics and monitoring versus surgical intervention with laparoscopic appendectomy. At this time, she would like to proceed with conservative management and we will continue to monitor her laboratory work as well as keep her on antibiotics and we will reassess the patient tomorrow. Job ID: [id number] DocumentID: [id number] Dictated Date: 11/18/2022 12:00:58 Frog Farmer Date: 11/18/2022 14:12:00 Dictated By: LEEROY BEAULIEU APRN
[2022-11-19] MEDS ORDERED: PATCH REMOVAL TP SCH (09:00)
== END 2022-11-18 13:31 | disposition left against medical advice (07) ==
LOC: EDUNIT# 01:11 → ER 01:15 → 4TH 05:26 → UNDOADMOB 05:26 → 4TH 05:41 → UNDODISOB 13:31
PROVIDERS: ADMIT Surgery; ATTEND Surgery
DX: R10.31 Right lower quadrant pain (principal); D72.829 Elevated white blood cell count, unspecified; K59.00 Constipation, unspecified; R11.0 Nausea; Z28.310 Unvaccinated for COVID-19
CPT/HCPCS: 74177; 80048; 81000; 84703; 85025; 96376; 99284; G0378; 36415

== ENCOUNTER 2022-11-21 19:44 | Emergency (ER) | payer MEDICAID ==
[~2022-11-21] VITALS: Ht 170.2 cm; Wt 120.0 kg
[~2022-11-21 19:44] MED LIST changes: +CIPR500T5 PO; +METR-145 PO
--- NOTE | 2022-11-21 20:12 | ED Lower Extremity ---
General Chief Complaint: Lower Extremity Stated Complaint: TWISTED FOOT \\ FALL Nursing Triage Note: PT AMB TO TRIAGE W C/O RIGHT FOOT PAIN D/T FALL AT 1030 THIS AM. SWELLING NOTED TO RIGHT FOOT, PT A&OX4. Source: patient Exam Limitations: no limitations History of Present Illness Date Seen by Provider: Nov 21, 2022 Time Seen by Provider: 20:09 Initial Comments Patient is a 27-year-old female presents to the ED with right foot and left knee pain. Patient fell around 10:00 this morning while taking clothes to her vehicle. Patient states she slipped on the gravel and hit the asphalt. She landed on her right knee but states her right foot rolled causing pain to the dorsum side of her right foot. She was able to stand and bear weight. She did notice a small knot that has increased in size. She is able to bear weight but with pain. She has no specific pain of the left knee but noted a skin abrasion. She applied soap and water, hydroperoxide with some improvement. Up-to-date on her tetanus. She is concerned for her right foot at this time. Denies hit her head, loss conscious, nausea vomit, diarrhea fever, chills, chest pain Allergies and Home Medications Allergies Coded Allergies: fexofenadine (Verified Allergy, Mild, RASH, 10/16/19) Patient Home Medication List Home Medication List Reviewed: Yes Ciprofloxacin HCl (Ciprofloxacin HCl) 500 Mg Tablet, 500 MG PO BID Prescribed by: LEEROY BEAULIEU on 11/18/22 1209 Hydrocodone/Acetaminophen (Hydrocodone-Acetamin 5-325 mg) 5 Mg-325 Mg Tablet, 1 TAB PO Q4H PRN for PAIN-MODERATE (5-7) Prescribed by: LEEROY BEAULIEU on 11/18/22 1209 Metronidazole (Metronidazole) 500 Mg Tablet, 500 MG PO BID Prescribed by: LEEROY BEAULIEU on 11/18/22 1209 Review of Systems Constitutional: No chills, No diaphoresis, No malaise, No weakness EENTM: No hearing loss, No blurred vision, No double vision Respiratory: No cough, No dyspnea on exertion Cardiovascular: No chest pain Gastrointestinal: No abdominal pain, No diarrhea, No nausea, No vomiting Genitourinary: No decreased output, No discharge Musculoskeletal: No back pain; joint pain, joint swelling, muscle pain, muscle stiffness Skin: No change in color, No change in hair/nails All Other Systems Reviewed Negative Unless Noted: Yes Past Vishlqg-Kwqtpv-Jnazaj Hx Patient Social History Tobacco Use?: No Use of E-Cig and/or Vaping dev: Yes E-Cig or Vaping type used: Nicotine Use of E-Cig and/or Vaping Christ: Current Everyday User Substance use?: Yes Substance type: Marijuana Alcohol Use?: No Immunizations Up To Date Tetanus Booster (TDap): Less than 5yrs PED Vaccines UTD: No Influenza Vaccine Up-to-Date: Yes; Up-to-Date Seasonal Allergies Seasonal Allergies: Yes Past Medical History Surgeries: Yes ( X 2; UMBILICAL HERNIA REPAIR) Section Respiratory: Yes Asthma Currently Using CPAP: No Currently Using BIPAP: No Cardiac: No Neurological: Yes Concussion Last Menstrual Period: Oct 31, 2022 Reproductive Disorders: Yes (IRREGULAR PERIODS) Female Reproductive Disorders: Menstrual Problems Sexually Transmitted Disease: No HIV/AIDS: No Genitourinary: No Gastrointestinal: No Abdominal Hernia Musculoskeletal: No Endocrine: No HEENT: No (GLASSES/CONTACTS) Loss of Vision: Denies Hearing Impairment: Denies Cancer: No Psychosocial: Yes Depression Integumentary: No Blood Disorders: Yes (ANEMIA) Adverse Reaction/Blood Tranf: No (N/A) Family Medical History Asthma G8 BROTHER Congenital heart disease 19 MOTHER (heart murmur) Psychosocial problem 19 MOTHER Seizure disorder 19 MOTHER No Family History of: AIDS Abdominal aortic aneurysm Deane's disease Alcoholism Alzheimer's disease Aphasia Arthritis Cancer of mouth Cardiovascular disease Cataracts Colon cancer Completed stroke Congenital disease Coronary thrombosis Cystic fibrosis Deafness or hearing loss Dementia Diabetes mellitus Drug abuse Dysphasia Fibrocystic disease of breast Gastroenteritis Glaucoma Headache disorder Hypercholesterolemia Hypertension Infertility Kidney disease Myocardial infarction Neoplasm Osteoporosis Parkinson's disease Prostate cancer Respiratory disorder Severe allergy Tuberculosis Visual disorder No Pertinent Family Hx Physical Exam Vital Signs Vital Signs - First Documented 11/21/22 19:50 Temp 36.3 Pulse 94 Resp 20 B/P (MAP) 134/72 (92) Pulse Ox 98 O2 Delivery Room Air Capillary Refill : Less Than 3 Seconds Height, Weight, BMI Height: 5'7.00" Weight: 265lbs. 0.0oz. [id number]; 41.00 BMI Method:Stated General Appearance: WD/WN, no apparent distress HEENT: PERRL/EOMI, normal ENT inspection, TMs normal, pharynx normal Neck: non-tender, full range of motion, supple, normal inspection Cardiovascular: regular rate, rhythm, no edema, no gallop, no JVD Respiratory: chest non-tender, lungs clear, normal breath sounds, no respiratory distress, no accessory muscle use Gastrointestinal: normal bowel sounds, non tender, soft, no organomegaly Back: normal inspection, no CVA tenderness Hips: bilateral hip non-tender, bilateral hip normal inspection, bilateral hip normal range of motion, bilateral hip no evidence of injury Knees: left knee soft tissue tenderness Ankles: right ankle non-tender, right ankle normal inspection, right ankle normal range of motion Feet: right foot pain, right foot soft tissue tenderness, right foot swelling, right foot other (Normal left range of motion of the digits.) 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 She did have notable swelling to the right dorsum foot. Normal active range of motion right ankle without any tenderness. Due to mechanism of injury x-ray was ordered of the right foot which was unremarkable for fracture read by myself. Radiologist agreed and did not note any acute fracture. She did have a skin abrasion to the left anterior knee without any tenderness. Normal active range of motion. Imaging was held at this time. Appears to be more skin abrasion. Recommend rest, anti-inflammatories ice. She is able to ambulate. Elevate feet at night. If any worsening symptoms return back to ED for further evaluation. Impression Primary Impression: Foot sprain Disposition: 01 HOME, SELF-CARE Condition: Stable Departure-Patient Inst. Decision time for Depature: 20:12 Referrals: [facility] (PCP/Family) Primary Care Physician ANDRES PACHECO MD Patient Instructions: Foot Sprain ED Add. Discharge Instructions: Recommend ice 3-4 times a day for the next 3 to 4 days, anti-inflammatories for pain. Braulio wrap for support. If continued pain recommend reevaluation with x- ray in 7 to 10 days All discharge instructions reviewed with patient and/or family. Voiced understanding. Work/School Note: Work Release Form Date Seen in the Emergency Department: Nov 21, 2022 Return to Work: Nov 23, 2022 SANIYA VEE Nov 21, 2022 20:12
--- NOTE | 2022-11-21 20:20 | Diagnostic Imaging Report ---
EXAMINATION: Right foot 3 views HISTORY: Foot pain COMPARISON: None available. FINDINGS: Alignment is normal. No fracture is seen. Joint spaces are normal. IMPRESSION: 1. No fracture. Dictated by: Dictated on workstation # [id number]
[2022-11-21 20:35] VITALS: BP 132/70
== END 2022-11-21 20:34 | disposition home or self-care (01) ==
LOC: EDUNIT# 19:44 → ER 19:47
DX: S93.601A Unspecified sprain of right foot, initial encounter (principal); S80.212A Abrasion, left knee, initial encounter; F17.290 Nicotine dependence, other tobacco product, uncomplicated; Z28.310 Unvaccinated for COVID-19; W01.198A Fall on same level from slipping, tripping and stumbling with subsequent striking against other object, initial encounter; X50.1XXA Overexertion from prolonged static or awkward postures, initial encounter
CPT/HCPCS: 73630